=== PATIENT | male | born 1980 | race Caucasian/White ===

== ENCOUNTER 2024-05-24 23:18 | Emergency (ER) | payer BC, SELFPAY ==
[2024-05-24 23:30] VITALS: BP 137/85; PULSE 97; RESP 16; TEMP 37.4; O2SAT 94; BMI 34.5
--- NOTE | 2024-05-24 23:36 | ED_ITS ---
HPI - General Adult General Chief complaint: Fever Stated complaint: fever Time Seen by Provider: 05/24/24 23:36 History of Present Illness HPI narrative: Patient c/o fever/chills since 1730 today. Patient has complicated h/o stage IV colon ca and was told today he is in remission ( treated at [facility] ). Fever as high as 102 at home. Patient took 1 gm tylenol at 2130 . Patient was told by [facility] to seek treatment for fever. Patient is currently on augmentin for pelvic drain removal 2 days ago. 43-year-old man presenting to the emergency department with concern of fever. Thankfully told today that he is in remission. Did have blood work done yesterday which looked good. Had chills this evening. Temperature measured up to 102 though they are not convinced of the quality of the thermometer/reading. At least 101 something. Took acetaminophen prior to arrival. Called in due to this fever and recommended to be evaluated in the emergency department. Last chemo 1 month ago. History of retained pelvic fluid. No pelvic pain anymore actually was doing some exercises today and felt better than ever. Did have strange urge to defecate at 1 point. Prior to pulling drain scope was used to verify no significant fluid collection. Was on Macrobid but has been now on Augmentin for 2 days. No rashes. No exposures. No cough or shortness of breath. Related Data Home Medications ?Medication ?Instructions ?Recorded ?Confirmed amlodipine 5 mg tablet 5 mg PO DAILY 05/24/24 05/24/24 amoxicillin 875 mg-potassium 1 tab PO BID 05/24/24 05/24/24 clavulanate 125 mg tablet bupropion HCl 300 mg 24 hr tablet, 300 mg PO QAM 05/24/24 05/24/24 extended release lamotrigine 200 mg tablet 200 mg PO QAM 05/24/24 05/24/24 lorazepam 0.5 mg tablet 0.5 mg PO 3XD PRN anxiety 05/24/24 05/24/24 mirtazapine 30 mg tablet mg PO 05/24/24 olanzapine 5 mg tablet mg 05/24/24 omeprazole 40 mg capsule,delayed 40 mg PO QAM 05/24/24 05/24/24 release oxycodone 5 mg tablet PO 05/24/24 pregabalin 25 mg capsule 25 mg PO 3XD 05/24/24 05/24/24 sildenafil 50 mg tablet 50 mg PO DAILY PRN intercourse 05/24/24 05/24/24 tamsulosin 0.4 mg capsule 0.4 mg PO DAILY 05/24/24 05/24/24 Allergies Allergy/AdvReac Type Severity Reaction Status Date / Time No Known Drug Allergies Allergy Verified 05/24/24 23:35 Review of Systems Status of ROS: Reports: 6 or more systems reviewed and unremarkable except as noted in History and below [facility] Medical History Colon cancer ?C18.9 - Malignant neoplasm of colon, unspecified (ICD-10) Social History Smoking Status: Unknown if ever smoked Non-prescribed substance use: denies use service: No Exam Narrative: Exam Narrative: Pleasant. Of good energy. Sounds a little congested in the nasopharynx which apparently is his usual timbre. Oropharynx is moist without erythema. Neck is supple without lymphadenopathy. Lungs are clear. Heart in elevated rate and regular rhythm. Abdomen is soft. Not particularly tender. Midline well-healed surgical scar without inflammation. Ostomy not inflamed. Extremities are well perfused without edema. Const: Vital Signs, click to edit/add: Vital Signs - 24 hr 05/24/24 23:30 05/25/24 00:20 Temperature 99.3 F Pulse Rate [Left P ulse Oximeter] 97 Respiratory Rate 16 Blood Pressure [Ri ght Upper Arm] 137/85 Pulse Oximetry 94 94 Oxygen Delivery Me thod Room Air Room Air Documenting provider has reviewed patient's vital signs: yes Course Vital Signs Vital signs: Initial Vital Signs Temperature 99.3 F 05/24/24 23:30 Temperature Source Temporal Artery Scan 05/24/24 23:30 Pulse Rate 97 05/24/24 23:30 Respiratory Rate 16 05/24/24 23:30 Blood Pressure 137/85 05/24/24 23:30 Blood Pressure Mean 102 05/24/24 23:30 Blood Pressure Position Supine 05/24/24 23:30 Pulse Oximetry 94 05/24/24 23:30 Oxygen Delivery Method Room Air 05/24/24 23:30 Vital Signs Temperature 99.3 F 05/24/24 23:30 Pulse Rate 97 05/24/24 23:30 Respiratory Rate 16 05/24/24 23:30 Blood Pressure 137/85 05/24/24 23:30 Pulse Oximetry 94 05/24/24 23:30 Oxygen Delivery Method Room Air 05/24/24 23:30 Temperature 99.3 F 05/24/24 23:30 Pulse Rate 97 05/24/24 23:30 Respiratory Rate 16 05/24/24 23:30 Blood Pressure 137/85 05/24/24 23:30 Pulse Oximetry 94 05/25/24 00:20 Oxygen Delivery Method Room Air 05/25/24 00:20 Medications Administered Medications: Discontinued Medications Generic Name Dose Route Start Last Admin Trade Name Rosina PRN Reason Stop Dose Admin Heparin Sodium (Porcine) 500 unit 05/25/24 01:22 05/25/24 01:34 Heparin 500 Unit/5 Ml Syringe IVF 05/25/24 01:23 500 unit ONCE ONE Administration Sodium Chloride 1,000 mls @ 1,000 mls/hr 05/24/24 23:48 05/25/24 00:24 0.9 % Sodium Chloride 1000 Ml IV 05/25/24 00:47 1,000 mls/hr .Q1H ONE Administration Medical Decision Making MDM Narrative Medical decision making narrative: Viral illness in community currently that seems to be causing headache and myalgias and some fever. Would suspect similar though certainly in the setting of cancer of the not receiving current chemotherapy would warrant further evaluation. Suppose could be neutropenic as the cause of fever. Look for source of infection. Have not requested chest x-ray at this point without respiratory symptoms. No chest pain. Screening labs. L normal saline Will obtain blood culture as well. Limited to 1 due to supply Hydrated. Monitor in the emergency department without event. Feels generally well. No further fever Labs are reassuring. CRP is elevated at 7.2. Unsure if this might be related to his persistent pelvic fluid/inflammation or underlying likely viral etiology. I would continue at this point on the Augmentin. Without other source to go by I think this is a reasonable antibiotic. Should cover most issues certainly intra-abdominal processes. Culture pending. See patient discharge plan for further discussion Medical Records Medical records reviewed: Yes I reviewed the patient's medical records Lab Data Lab results reviewed: Yes I reviewed the patient's lab results Labs: Lab Results 08/07/24 08/07/24 Range/Units 00:20 01:20 WBC 6.40 (4.50-11.00) K/uL RBC 4.29 L (4.30-5.90) m/uL Hgb 12.2 L (13.5-17.5) gm/dL Hct 37.6 (37.0-53.0) % MCV 88 (80-100) fL MCH 28 (26-34) pg MCHC 32 (32-36) gm/dL RDW Coeff of Jackelin 13.2 (11.5-15.5) % Plt Count 284 (140-440) K/uL Neut % (Auto) 73.5 H (42.0-72.0) % Lymph % (Auto) 13.0 L (20-44) % [place] % (Auto) 11.4 H (0.0-11.0) % Eos % (Auto) 1.1 (0.0-7.0) % Baso % (Auto) 0.5 (0.0-3.0) % Neut # (Auto) 4.70 (1.7-7.0) K/uL Lymph # (Auto) 0.80 L (0.90-2.90) K/uL [place] # (Auto) 0.70 (0.00-0.90) K/UL Eos # (Auto) 0.07 (0.00-0.50) K/uL Baso # (Auto) 0.03 (0.00-0.30) K/uL Abs Immat Gran (auto) 0.03 (0.00-0.30) K/uL Imm/Tot Granulo (auto) 0.5 % Sodium 137 (135-149) mmol/L Potassium 3.9 (3.6-5.1) mmol/L Chloride 105 (96-114) mmol/L Carbon Dioxide 25 (20-32) mmol/L Anion Gap 7 (7-15) mEq/L BUN 22 (5-24) mg/dL Creatinine 0.8 (0.5-1.5) mg/dL Estimated Creat Clear 113.61 Estimated GFR 114 ml/min Glucose 104 (60-115) mg/dL Lactate 1.0 (0.5-1.9) mmol/L Calcium 9.1 (8.4-10.6) mg/dL Total Bilirubin 0.5 (0.1-1.5) mg/dL Direct Bilirubin 0.4 (0.0-0.5) mg/dL AST 28 (12-35) U/L ALT 60 H (4-50) U/L Alkaline Phosphatase 169 H (40-150) U/L C-Reactive Protein 7.2 H (0.5-1.0) mg/dL Total Protein 6.7 (6.0-8.3) g/dL Albumin 4.0 (3.3-5.0) g/dL Procalcitonin 0.18 (<0.50) ng/mL Urine Color Yellow (Yellow) Urine Appearance Clear (Clear) Urine pH 5.5 (5.0-8.5) Ur Specific [place] 1.010 (1.000-1.030) Urine Protein Negative (Negative) Urine Glucose (UA) Negative (Negative) Urine Ketones Negative (Negative) Urine Blood Negative (Negative) Urine Nitrite Negative (Negative) Urine Bilirubin Negative (Negative) Urine Urobilinogen 0.2 (0.2-1.0) Ur Leukocyte Esterase Negative (Negative) Urine RBC 0-2 (0-2) Urine WBC 0-2 (0-5) Ur Squamous Epith Cells Few (None-Few) Urine Bacteria None (None) SARS-CoV-2 (PCR) Negative SARS-CoV-2 (Negative) Influenza Type A (PCR) Negative PCR FLU A (Negative) Influenza Type B (PCR) Negative PCR FLU B (Negative) Discharge Plan Discharge Clinical Impression: Fever Patient Disposition: Home w/ Parent or Adult Condition: Stable Instructions: Fever in Adults (ED) Additional Instructions: I would suspect you have nonspecific viral illness. Stay well-hydrated. Monitor for continued fever. Please call later today to your [facility] care team to discuss. Your labs are overall reassuring the with a C reactive protein of 7.2 and perhaps not unexpectedly your ALT was 60 and your alkaline phosphatase was 169. We will call you if we have any further recommendations based on your urinalysis. You are fairly well covered with the Augmentin for numerous pot ential sources of infection. One blood culture is also pending. Prescriptions: No Action lamotrigine 200 mg tablet 200 mg PO QAM sildenafil 50 mg tablet 50 mg PO DAILY PRN (Reason: intercourse) olanzapine 5 mg tablet Patient Comments: PLEASE SEE ATTACHED FOR DETAILED DIRECTIONS amlodipine 5 mg tablet 5 mg PO DAILY omeprazole 40 mg capsule,delayed release(DR/EC) 40 mg PO QAM lorazepam 0.5 mg tablet 0.5 mg PO 3XD PRN (Reason: anxiety) tamsulosin 0.4 mg capsule 0.4 mg PO DAILY mirtazapine 30 mg tablet PO amoxicillin-pot clavulanate 875-125 mg tablet 1 tab PO BID oxycodone 5 mg tablet PO bupropion HCl 300 mg tablet extended release 24 hr 300 mg PO QAM pregabalin 25 mg capsule 25 mg PO 3XD Follow Up/Referrals: Provider,Not a Local [Primary Care Provider] - Stand Alone [facility]: [facility] Inst[facility]
--- OUTSIDE RECORDS SUMMARY | 2024-05-24 23:59 | XMS_ITS | Clinical Summary ---
Author Organization [facility] Address [address] [place] [address]. [place] [address] Care Team Providers Care Claim Specialist Name Role Phone Manuel Hoffman MD Primary Care Provider [phone] Allergies No known active allergies Medications Medication Sig Dispensed Refills Start Date End Date Status HEMP OIL OR EXTRACT OR OTHER CBD CANNABINOID, NOT MEDICAL CANNABIS, Active 5-HTP CAPS Take 1 capsule by mouth daily Active buPROPion (WELLBUTRIN XL) 300 MG 24 hr tablet Take 300 mg by mouth every morning Active escitalopram (LEXAPRO) 20 MG tablet Take 20 mg by mouth daily 03/06/2022 Discontinued Active Problems Problem Noted Date Diagnosed Date Major depressive disorder 03/07/2022 MDD (major depressive disord er), recurrent severe, 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 Hematochezia 07/22/2019 Social History Tobacco Use Types Packs/Day Years Used Date Smoking Tobacco: Never Smokeless Tobacco: Never Alcohol Use Standard Drinks/Week Comments Not Currently 0 (1 standard drink = 0.6 oz pur e alcohol) Adolescent Education Answer Date Record ed Getting School Help Needed Not on file 07/27 Sex and Gender Information Value Date Recorded Sex Assigned at Not on file Gender Identity Not on file Sexual Orientation Not on file Last Filed Vital Signs Vital Sign Reading Time Taken Comments Blood Pressure 135/89 03/08/2022 9:00 AM CDT Pulse 68 03/08/2022 9:00 AM CDT Temperature 36.2 ??C (97.2 ??F) 03/08/2022 9:00 AM CD T Respiratory Rate 16 03/08/2022 9:00 AM CDT Oxygen Saturation 98% 03/08/2022 9:00 AM CDT Inhaled Oxygen Concentration - - Weight 94.7 kg (208 lb 12.8 oz) 03/07/2022 9:31 PM CDT Height 170.2 cm (5' 7) 03/07/2022 9:31 PM CDT Body Mass Index 32.7 03/07/2022 9:31 PM CDT Plan of Treatment Health Maintenance Due Date Last Done Comments ADVANCE CARE PLANNING 1982 ANNUAL REVIEW OF HM ORDERS 1982 DEPRESSION ACTION PLAN 1982 PHQ-9 1982 HIV SCREENING 1997 HEPATITIS C SCREENING 2000 HEPATITIS B IMMUNIZATION (3 of 3 - 19+ 3-dose series) 05/26/2016 02/18/2016, 11/26/2015 YEARLY PREVENTIVE VISIT 12/05/2021 12/05/19, 08/19/2019, 08/18/2018 COVID-19 Vaccine ( season) 2023 01/09/2021, 12/14/2020 INFLUENZA VACCINE (#1) 2024 , 07/16/2020, 07/22/2018, Additional history exists GLUCOSE 03/08/2025 03/08/2022, 1002/2019, 07/22/2019 LIPID 03/08/2027 03/08/2022 DTAP/TDAP/TD IMMUNIZATION (8 - Td or Tdap) 07/24/2031 07/24/2021, 01/28/2010, 01/18/1988, Additional history exists IPV IMMUNIZATION Completed 01/18/1988, 06/1985, 08/12/1983, Additional history exists HPV IMMUNIZATION Aged Out No longer e ligible based on patient's age to complete this topic MENINGITIS IMMUNIZATION Aged Out No l onger eligible based on patient's age to complete this topic Pneumococcal Vaccine: Pediatrics (0 to 5 Years) and At-Risk Patients (6 to 64 Years) Aged Out No longer eligible based on patient's age to complete this topic RSV MONOCLONAL ANTIBODY Aged Out No l onger eligible based on patient's age to complete this topic Medical Devices Implanted Type Area Latex Thread Machine Operator Device Identifier Shelf Expiration Date Model / Serial / Lot Embolization Coil-07/22/2019 Implanted:Qty: 1 on 07/22/2019 by Aston Granger MD Embolization Coil / / [id number] Embolization Coil-07/22/2019 Implanted:Qty: 1 on 07/22/2019 by Aston Granger MD Embolization Coil / / [id number] Procedures Procedure Name Priority Date/Time Associated Diagnosis Comments COMPREHENSIVE METABOLIC PANEL Routine 03/08/2022 5:49 AM CDT LIPID PROFILE Routine 03/08/2022 5:49 AM CDT from Last 3 Months or Most Recently Relevant to Health Maintenance Results * (ABNORMAL) Lipid panel (03/08/2022 5:49 AM CDT) Pathologist [facility] Cholesterol 193 <200 mg/dL 03/08/2022 7:05 AM CDT [facility] Triglycerides 89 <150 mg/dL 03/08/2022 7:05 AM CDT [facility] Direct Measure HDL 49 >=40 mg/dL 03/08/2022 7:05 AM CDT [facility] LDL Cholesterol Calculated 126(H) <=100 mg/dL 03/08/2022 7:05 AM CDT [facility] Non HDL Cholesterol 144(H) <130 mg/dL 03/08/2022 7:05 AM CDT [facility] Blood STRUCTURE OF RIGHT UPPER LIMB / Unknown Venipuncture / Unknown 03/08/2022 5:49 AM CDT 03/08/2022 6:37 AM CDT Narrative [facility] - 03/08/2022 7:05 AM CDT Cholesterol Desirable: ??<200 mg/dL Triglycerides Normal: ??Less than 150 mg/dL Borderline High: ??150-199 mg/dL High: ??200-499 mg/dL Very High: ??Greater than or equal to 500 mg/dL Direct Measure HDL Female: ??Greater than or equal to 50 mg/dL Male: ??Greater than or equal to 40 mg/dL LDL Cholesterol Desirable: ??<100mg/dL Above Desirable: ??100-129 mg/dL Borderline High: ??130-159 mg/dL High: ??160-189 mg/dL Very High: ??>= 190 mg/dL Non HDL Cholesterol Desirable: ??130 mg/dL Above Desirable: ??130-159 mg/dL Borderline High: ??160-189 mg/dL High: ??190-219 mg/dL Very High: ??Greater than or equal to 220 mg/dL Meg Walker APRN [employer] [facility] - BLO OD ORDERABLES [facility] [address] [place] [address], [facility] [phone] * Comprehensive metabolic panel (03/08/2022 5:49 AM CDT) Sodium 140 133 - 144 mmol/L 03/08/2022 7:05 AM CDT [facility] Potassium 4.2 3.4 - 5.3 mmol/L 03/08/2022 7:05 AM CDT [facility] Chloride 107 94 - 109 mmol/L 03/08/2022 7:05 AM CDT [facility] Carbon Dioxide (CO2) 28 20 - 32 mmol/L 03/08/2022 7:05 AM CDT [facility] Anion Gap 5 3 - 14 mmol/L 03/08/2022 7:05 AM CDT [facility] Urea Nitrogen 15 7 - 30 mg/dL 03/08/2022 7:05 AM CDT [facility] Creatinine 0.93 0.66 - 1.25 mg/dL 03/08/2022 7:05 AM CDT [facility] Calcium 9.1 8.5 - 10.1 mg/dL 03/08/2022 7:05 AM CDT [facility] Glucose 91 70 - 99 mg/dL 03/08/2022 7:05 AM CDT [facility] Alkaline Phosphatase 42 40 - 150 U/L 03/08/2022 7:05 AM CDT [facility] AST 11 0 - 45 U/L 03/08/2022 7:05 AM CDT [facility] ALT 13 0 - 70 U/L 03/08/2022 7:05 AM CDT [facility] Protein Total 7.0 6.8 - 8.8 g/dL 03/08/2022 7:05 AM CDT [facility] Albumin 3.9 3.4 - 5.0 g/dL 03/08/2022 7:05 AM CDT [facility] Bilirubin Total 0.9 0.2 - 1.3 mg/dL 03/08/2022 7:05 AM CDT [facility] GFR Estimate >90 >60 mL/min/1.7 3m2 03/08/2022 7:05 AM CDT [facility] Comment:Effective September 192020 eGFRcr in adults is calculated using the 2020 CKD-EPI creatinine equation which includes age and gender (Kaykay et al., NEJM, DOI: 10.1056/KUGMfj0621093) Blood STRUCTURE OF RIGHT UPPER LIMB / Unknown Venipuncture / Unknown 03/08/2022 5:49 AM CDT 03/08/2022 6:37 AM CDT Meg Walker APRN [employer] LAB - BLO OD ORDERABLES [facility] [address] [place] [id number] [phone] from Last 3 Months or Most Recently Relevant to Health Maintenance Advance Directives For more information, please contact: [phone] * Full Code (Latest Code Status on File) Date Activated Date Inactivated Comments 03/07/2022 10:02 PM 03/08/2022 5:01 PM All basic a nd advanced life-sustaining interventions are performed as appropriate Question Answer Comments Code status determined by: Discussion with patie nt/ legal decision maker * Full Code Date Activated Date Inactivated Comments 07/22/2019 6:03 PM 07/23/2019 4:41 PM Question Answer Comments Code status determined by: Discussion with patie nt/legal decision maker Care Teams Claim Specialist Relationship Specialty Start Date End Date Manuel Hoffman MD [facility] [address] [place] [address] PCP - General Family Practice 07/22/19
--- OUTSIDE RECORDS SUMMARY | 2024-05-24 23:59 | XMS_ITS | Clinical Summary ---
Author Organization [facility] Address [address] [place] [address] Care Team Providers Care Dry House Tender Name Role Phone Unavailable Primary Care Provider Unavailabl e Source Comments You are receiving this document as you are listed as the primary care provider,follow-up provider, or the patient has been referred to you for consultation.This is in compliance with the Medicare andMedicaid EHR Incentive Program,which states Providers who transition their patient to another setting of careor provider of care or refers their patient to another provider of care shouldprovide summary care record for each transition of care or referral. [facility] Allergies No known active allergies Medications Medication Sig Dispensed Refills Start Date End Date Status Cholecalciferol 5000 UNITS Take 1 tablet by mouth daily (every 24 hours). 90 tablet 3 10/30/2015 Active escitalopram oxalate (AKA LEXAPRO) 10 MG tabletIndications:D epression, major, recurrent, moderate (HRC) Take 2 tablets by mouth daily (every 24 hours). 11 10/30/2015 Active buPROPion (WELLBUTRIN XL) 300 MG 24 hour release tablet Take 300 mg by mouth. 03/13/2022 Active DULoxetine (CYMBALTA) 30 MG capsule Take 30 mg by mouth daily. 12/29/2021 Active cholecalciferol (VITAMIN D3) 125 MCG (5000 UT) capsule Take 5,000 Units by mouth. Active 5-HTP CAPS Take 1 Capsule by mouth daily. Active lamoTRIgine (LAMICTAL) 25 MG tablet PLEASE SEE ATTACHED FOR DETAILED DIRECTIONS 03/12/2022 Active lamoTRIgine ER 50 MG Take 50 mg by mouth. 04/04/2022 Active Immunizations Name Administration Dates Next Due DTaP 01/18/1988, 5,08/12/1983,1982,04/10/1983 Flu Vac Preserv Free (3+yrs) 07/22/2018 Fluzone Qiv Multidose Vial 0 .25 (6-35 Mos) 07/16/2020,07/22/2018 HepA Adult (19+ yrs) 02/18/2016,11/26/2015 HepB, Unspecified Formulation 02/18/2016, 016 Influenza (Flucelvax) 07/11/2021 MMR 05/31/1996,04/08/1984 Moderna Monovalent 12+ 01/09/2021,12/14/2020 OPV, Trivalent (Orimune or tOPV) 988,01/25/1985,08/12/1983,1982,03/20/1983 Tdap 07/24/2021,01/28/2010 Typhoid, Parenteral Heat-Phe nol Inactivated 11/26/2015 YF (Yellow Fever) 03/19/2016 Family History Medical History Relation Name Comments Hypertension Mother Relation Name Status Comments Mother Social History Tobacco Use Types Packs/Day Years Used Date Smoking Tobacco: Former Cigarettes Q uit: 07/30/2015 Alcohol Use Standard Drinks/Week Comments Yes 0 (1 standard drink = 0.6 oz pur e alcohol) Sex and Gender Information Value Date Recorded Sex Assigned at Not on file Gender Identity Not on file Sexual Orientation Not on file Last Filed Vital Signs Vital Sign Reading Time Taken Comments Blood Pressure 146/104 04/18/2022 3:48 PM CDT Pulse 66 04/18/2022 3:48 PM CDT Temperature - - Respiratory Rate 14 04/18/2022 3:48 PM CDT Oxygen Saturation 100% 04/18/2022 3:48 PM CDT Inhaled Oxygen Concentration - - Weight 96.6 kg (213 lb) 10/30/2015 10:39 AM 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 INTERN Height 172.1 cm (5' 7.75) 10/30/2015 10:[address] Body Mass Index 32.63 10/30/2015 10:39 AM 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 Plan of Treatment Health Maintenance Due Date Last Done Comments Hep C Screening (Preventive Services) 1982 HIV Screening (Preventive Services) 1998 Adult Preventive Visit 2000 HepB (3) 05/26/2016 02/18/2016, 11/26/2015 Cholesterol 2017 COVID-19 Vaccine (3 season) 2023 01/09/2021, 12/14/2020 Influenza (#1) 2024 07/11/2021, 06/20, 07/22/2018, Additional history exists DTaP/Tdap/Td (8 - Tdap) 07/24/2031 07/24/20 21, 01/28/2010, 01/18/1988, Additional history exists Zoster/Shingles (1 of 2) 2032 IPV (Polio) Completed 01/18/1988, 06/1985, 08/12/1983, Additional history exists HepA Aged Out 02/18/2016, 11/26/2015 No lo nger eligible based on patient's age to complete this topic HPV Vaccine Aged Out No longer eligi ble based on patient's age to complete this topic Hib Aged Out No longer eligi ble based on patient's age to complete this topic MCV4 Aged Out No longer eligi ble based on patient's age to complete this topic Pneumococcal Aged Out No longer eligi ble based on patient's age to complete this topic
--- OUTSIDE RECORDS SUMMARY | 2024-05-25 | XMS_ITS | Clinical Summary ---
Author Organization [facility] Address [address] [place] [address] Care Team Providers Care Rim Roller Setter Name Role Phone Kayla Rowland APRN, C.N.P. Primary Care Provide r Source Comments Patient records contain information from all sites at [facility]. For routine questions regarding patient records, call [phone] during business hours, M-F 8:00 AM - 5:00 PM Central Time. Record requests for emergency care only can be directed to [phone] at any time.[facility] Allergies No known active allergies Medications Medication Sig Dispensed Refills Start Date End Date Status buPROPion XL (WELLBUTRIN XL) 300 mg 24 hr tablet Take 1 tablet (300 mg total) by mouth every morning. 90 tablet 11 03/13/20 22 Active triamcinolone (KENALOG) 0.1 % creamIndications :Psoriasis Apply to affected area 1-2 times daily as needed. 60 g 11 06/01/20 23 Active Additional Information Patient taking differently: 4 times daily PRN, irritation, rash, psoriasis, Apply to affected area four times daily as needed for psoriasis, Informant: Self, Reported on 03/29/2024 fluocinonide (LIDEX) 0.05 % external solution 1 Application 2 (two) times a day as needed for irritation, itching or rash (psoriasis). Apply to the scalp up to twice daily as needed for flares. 09/23/20 23 Active tacrolimus (PROTOPIC) 0.1 % ointment Apply 1 Application topically 2 (two) times a day as needed (psoriasis). 09/23/20 23 Active medical cannabis oil inhalation Inhale as needed (nauesa and anxiety). THC component: 30 mg Patient does not need while in the hospital Active amLODIPine (NORVASC) 5 mg tablet TAKE 1 TABLET (5 MG TOTAL) BY MOUTH DAILY. 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 Flush IV line AFTER 0.9% Sodium Chloride flush 04/03/20 24 Active ibuprofen (ADVIL,MOTRIN) 200 mg tablet Take 3 tablets (600 mg total) by mouth every 6 (six) hours as needed for pain for up to 5 days. 04/03/20 24 Active prochlorperazine (COMPAZINE) 5 mg tablet Take 1 tablet (5 mg total) by mouth every 6 (six) hours as needed for nausea or vomiting. 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 Flush IV line AFTER 0.9% Sodium Chloride flush 04/03/20 24 Active pantoprazole (PROTONIX) 40 mg EC tablet Take 1 tablet (40 mg total) by mouth every morning before breakfast. 30 tablet 1 04/03/20 24 Active lidocaine-priloc leilani (EMLA) 2.5-2.5 % cream Apply 1 Application topically as needed for pain. Wearing gloves, gently squeeze prescribed amount of EMLA?? directly onto intact skin of desired numbing site. Do not rub in. Cover topical Lidocaine/Priloc leilani (EMLA??) with occlusive dressing, to prevent patient from accidental ingestion or eye contact. Apply 60 minutes prior to indicated procedure. 30 g 04/03/20 24 Active LORazepam (Ativan) 0.5 mg tablet Take 1 tablet (0.5 mg total) by mouth 3 (three) times a day as needed for anxiety. 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 May take dose early if needed. 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 Take daily for 3 days, starting the day after chemotherapy ends of each cycle. 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 90 capsule 04/26/20 24 025 Active sildenafiL (Viagra) 50 mg tablet Take 1 tablet (50 mg total) by mouth daily as needed for erectile dysfunction. 10 tablet 05/04/20 24 Active mirtazapine (Remeron) 30 mg tablet Take 30 mg by mouth at bedtime. 05/08/20 24 Active lamoTRIgine (LaMICtaL) 200 mg tablet Take 200 mg by mouth daily. Active acetaminophen (TylenoL) 500 mg tablet Take 2 tablets (1,000 mg total) by mouth every 6 (six) hours as needed for pain. 05/15/20 24 Active amitriptyline 2 % ketamine 5 % lidocaine 5 % in lipodermIndicati ons:Abdominal Pain Apply topically 4 (four) times a day as needed (pain around drain site). Apply around drain site. 30 g 05/15/20 24 Active pregabalin (Lyrica) 25 mg capsule Take 1 capsule (25 mg total) by mouth 3 (three) times a day. Refills, if needed, should be provided by your PCP. 90 capsule 05/15/20 24 024 Active lidocaine (Lidoderm) 5 % adhesive patch,medicated Place 1 patch on the skin daily as needed (pain). Apply to area of most pain. 05/15/20 24 Active methocarbamoL (Robaxin) 500 mg tablet Take 2 tablets (1,000 mg total) by mouth 4 (four) times a day as needed for muscle spasms. 35 tablet 05/15/20 24 Active oxyCODONE (Roxicodone) 5 mg immediate release tabletIndication s:Acute Pain Exception Take 1-2 tablets (5-10 mg) by mouth every 3 hours as needed for moderate or severe pain. Pain rated 4-6 of 10, take 1 tablet. For pain rated greater than 7 of 10, take 2 tablets. Wean off this medication within 1 week of discharge. 20 tablet 05/18/20 24 Active oxyCODONE (Roxicodone) 5 mg immediate release tabletIndication s:Chronic Pain/Nonacute Pain Take 1-2 tablets (5-10 mg total) by mouth every 4 (four) hours as needed for moderate pain or score 4-6 of 10 Indication: Chronic Pain/Nonacute Pain. 60 tablet 05/19/20 24 Active tamsulosin (Flomax) 0.4 mg 24 hr capsule Take 1 capsule (0.4 mg total) by mouth daily. 30 capsule 1 05/20/20 24 Active amoxicillin-pot clavulanate (Augmentin) 875-125 mg per tablet Take 1 tablet by mouth 2 (two) times a day for 7 days. 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 Flush IV line AFTER 0.9% Sodium Chloride flush 04/03/20 024 Discontinued( erapy completed) LORazepam (ATIVAN) 0.5 mg tablet Take 1 tablet (0.5 mg total) by mouth 3 (three) times a day as needed (prn nausea). Take Caution in combination use with Narcotic pain meds. Can cause excessive sedation 04/03/20 024 Discontinued oxyCODONE (ROXICODONE) 5 mg immediate release tabletIndication s:Acute Pain Exception Take 1 tablet (5 mg total) by mouth every 3 (three) hours as needed for moderate pain or score 4-6 of 10 Indication: Acute Pain Exception. 40 tablet 04/03/20 24 024 Discontinued(Re order) tamsulosin (FLOMAX) 0.4 mg 24 hr capsule Take 1 capsule (0.4 mg total) by mouth daily. 30 capsule 1 04/03/20 24 024 Discontinued(Re order) lidocaine (LIDODERM) 5 % adhesive patch,medicated Place 1 patch on the skin daily. Apply to area of most pain. 5 patch 04/03/20 24 024 Discontinued methocarbamoL (Robaxin) 500 mg tablet Take 2 tablets (1,000 mg total) by mouth 4 (four) times a day as needed for muscle spasms. 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 May take 2 caps every 4 hrs at night. 24 capsule 3 04/26/20 24 024 oxyCODONE (Roxicodone) 5 mg immediate release tabletIndication s:Acute Pain Take 1 tablet (5 mg total) by mouth every 4 (four) hours as needed for severe pain or score 7-10 of 10 Indication: Acute Pain. 15 tablet 05/08/20 24 024 Discontinued(St op Taking at Discharge) oxyCODONE (Roxicodone) 5 mg immediate release tabletIndication s:Acute Pain Exception Take 1-2 tablets (5-10 mg) by mouth every 3 hours as needed for moderate or severe pain. Pain rated 4-6 of 10, take 1 tablet. For pain rated greater than 7 of 10, take 2 tablets. Wean off this medication within 1 week of discharge. 40 tablet 05/15/20 24 024 Discontinued(Re order) nitrofurantoin monohydrate (Macrobid) 100 mg capsuleIndicatio ns:Lower UTI, Non-Catheter Take 1 capsule (100 mg total) by mouth 2 (two) times a day for 13 doses Indications: Lower UTI, Non-Catheter. 13 capsule 05/15/20 024 Active Problems Problem Noted Date Diagnosed Date Pain Postoperative 05/12/2024 Abdominal Pain 05/12/2024 Anxiety 05/12/2024 Psoriasis 05/12/2024 Gastroesophageal Reflux Disease 05/12/2024 Other Intra Abdominal And Pelvic Swelling Mass A nd Lump 05/09/2024 Follow Up Examination Postoperative Visit 2023 Ileostomy Status 05/02/2024 Retention Urinary 04/01/2024 Hypokalemia 04/01/2024 Hypomagnesemia 04/01/2024 Hypophosphatemia 04/01/2024 Post Operative Nausea/Vomiting 03/29/2024 Obesity Body Mass Index 30-39.9 Adult 03/29/2024 Malignant Neoplasm Of Rectum 09/22/2023 Secondary Malignant Neoplasm Liver 09/18/2023 Malignant Neoplasm Of Colon Rectosigmoid Junctio n 09/14/2023 Mass Colon 09/07/2023 Depression Major Recurrent S evere Without Psychotic Features 03/06/2022 Goiter Multinodular Nontoxic 09/24/2018 Hypertension Essential Primary 05/22/2017 Overview (07/12/2017): Hypertension (HTN)\.br\per external records ST Elevation Myocardial Infarction Of Unspecifie d Site Resolved Problems Problem Noted Date Diagnosed Date Resolved Date Hematochezia 07/22/2019 08/19/2019 Depression Major Recurrent Mild 05/11/2017 03/12/2022 Overview (07/12/2017): Depression Major Recurrent Mild Encounters Date Type Department Care Team Description 05/24/2024 Clinical Communication Department of Oncology in [place], [place] [address] [place] [address] Pedro Mahoney M.D., Pharm.D. 05/23/2024 12:15 PM CDT Infusion Department of Oncology in [place], [place] [address] [place] [address] Mariluz Soler M.D. 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 Jason Silveira M.D. Gonzalez, Austin J, M.D. Malignant Neoplasm Of Rectum (HCC); Secondary Malignant Neoplasm Liver (HCC); Abdominal Pain Discharge Disposition: Home or Self Care 05/20/2024 Orders Only Division of Colon and Rectal Surgery in [place], [place] [address] [place] [phone] Armida Bullock APRN, C.N.P., M.S.N. 05/19/2024 Refill Department of Oncology in [place], [place] [address] [place] [address] Patsy Bowser APRN, C.N.P., M.S. Med Refill 05/18/2024 Orders Only Division of Colon and Rectal Surgery in [place], [place] [address] [place] [address] Jeremy Ventura APRN, C.N.P., M.S. 05/17/2024 Clinical Communication Division of Colon and Rectal Surgery in [place], [place] [address] [place] [phone] Janell Chino M.A.N., R.N. 05/17/2024 Orders Only Division of Colon and Rectal Surgery in [place], [place] [address] [place] [address] Janell Chino M.A.N., R.N. Malignant Neoplasm Of Rectum (HCC) (Primary Dx); Secondary Malignant Neoplasm Liver (HCC); Abdominal Pain 05/13/2024 Orders Only Department of Urology in [place], [place] [address] [place] [address] Anny Mcneill M.D. Retention Urinary (Primary Dx) 05/12/2024 3:23 PM CDT - 05/15/2024 1:36 PM CDT Hospital Encounter [facility], [facility], [facility], Fifth Floor [address] [place] [address] Patsy Zhou M.D. Baker, Sebastian P, APRN, C.N.P. Radha Barrera M.D. Tej Quintanilla M.B., Ch.B., M.P.H. Pain Postoperative (Primary Dx); Abdominal Pain Discharge Disposition: Home or Self Care 05/12/2024 Orders Only Division of Colon and Rectal Surgery in [place], [place] [address] [place] [phone] Basia Colorado APRN, C.NMarco., M.S.N. Abdominal Pain (Primary Dx) 05/12/2024 Clinical Communication Division of Colon and Rectal Surgery in [place], [place] [address] [place] [phone] Tej Quintanilla M.B., Ch.B., M.P.H. Post Op Sinogram Follow Up 05/11/2024 2:00 PM CDT Infusion Department of Oncology in [place], [place] [address] [place] [phone] Patsy Bowser APRN, C.NMarco., M.S. 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 05/10/2024 Orders Only Department of Oncology in [place], [place] [address] [place] [address] Patsy Bowser APRN, C.N.P., M.S. 05/09/2024 2:37 PM CDT - 05/11/2024 12:42 PM CDT Hospital Encounter [facility], [facility], [facility], Sixth Floor [address] [place] [phone] Kai Petersen M.D., M.S. Tej Quintanilla M.B., Ch.B., M.P.H. Other Intra Abdominal And Pelvic Swelling Mass And Lump (Primary Dx) Discharge Disposition: Home or Self Care 05/06/2024 10:30 AM CDT Office Visit Division of Hepatobiliary and Pancreas Surgery in [place], [place] [address] [place] [address] Joann Rausch APRN, C.N.P., M.S.N. Malignant Neoplasm Of Rectum (HCC) (Primary Dx); Secondary Malignant Neoplasm Liver (HCC); Follow Up Examination Postoperative Visit; Ileostomy Status (HCC) 05/06/2024 9:30 AM CDT Clinical Support Division of Colon and Rectal Surgery in [address] [phone] Armida Bullock, JAD, C.N.P., M.S.N. Tanya Herman R.N., C.W.O.C.N. Ileostomy Status (HCC) 05/06/2024 8:04 AM CDT - 05/06/2024 11:59 PM CDT Hospital Encounter Department of Radiology, [facility], in [address] [phone] Genesis Suresh P.A.-C. 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 Ileostomy Status (HCC) (Primary Dx); Follow Up Examination Postoperative Visit 05/04/2024 Refill Department of Oncology in [address] [phone] Rena Mccray R.N., O.C.N. Med Refill 05/04/2024 Clinical Communication Department of Oncology in [address] [phone] Rena Mccray R.N., O.C.N. Forms ([facility]) 05/03/2024 12:15 PM CDT Clinical Communication Virtual Review in [address] [phone] Pre-visit Intake 05/02/2024 10:20 AM CDT Lab Department of Infusion Therapy in [address] [address] Mariluz Soler M.D. 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 Gloria Rapp R.N., SHAYY Ileostomy Status (HCC) 05/02/2024 Orders Only Department of Oncology in [address] [phone] Rena Mccray R.N., O.C.N. 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 Jacobson, Alison C, R.N., O.C.N. 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 Ileostomy Status (HCC) (Primary Dx) 04/19/2024 Refill Department of Oncology in [place], [place] [address] [place] [phone] Rena Mccray R.N., O.C.N. Med Refill 04/16/2024 Clinical Communication Division of Hepatobiliary and Pancreas Surgery in [place], [place] [address] [place] [phone] Amari You M.D. 04/14/2024 Orders Only Department of Oncology in [place], [place] [address] [place] [phone] Mariluz Soler M.D. 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 04/13/2024 Orders Only Department of Oncology in [place], [place] [address] [place] [phone] Rena Mccray R.N., O.C.NSolitario Malignant Neoplasm Of Rectum (HCC) (Primary Dx) 04/13/2024 Clinical Communication Division of Hepatobiliary and Pancreas Surgery in [place], [place] [address] [place] [phone] Wilfredo Cast M.D. 04/12/2024 3:00 PM CDT Clinical Support Division of Colon and Rectal Surgery in [place], [place] [address] [place] [address] [place] [address] Genesis Suresh P.A.-C. 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 04/06/2024 Orders Only Division of Hepatobiliary and Pancreas Surgery in [place], [place] [address] [place] [phone] Susu Daniel APRN, C.N.PSolitario, D.N.P. 04/05/2024 10:30 AM CDT - 04/05/2024 11:59 PM CDT Hospital [facility] Department of Radiology, [facility], in [place], [place] [address] [place] [phone] Chris Viera D.O., M.B.A. 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 Refill of catheters 04/04/2024 Clinical Communication Division of Colon and Rectal Surgery in [place], [place] [address] [place] [phone] Tej Quintanilla M.B., Ch.B., M.P.H. 03/29/2024 10:00 AM CDT - 03/29/2024 11:59 PM CDT Hospital Encounter Department of Radiology, [facility], in [place], [place] [address] [place] [phone] Panda Masters M.D. Secondary Malignant Neoplasm Liver (HCC) Discharge Disposition: Home or Self Care 03/29/2024 7:50 AM CDT Anesthesia Event [facility] OR [address] [place] [phone] Soniya Conroy M.D. Stephenson, Anthony A, M.D. 03/29/2024 7:25 AM CDT - 03/29/2024 5:11 PM CDT Surgery [facility] OR [address] [place] [phone] Chris Viera D.O., M.B.A. HEPATIC ARTERY INFUSION PUMP PLACEMENT. 03/29/2024 6:00 AM CDT - 04/03/2024 1:22 PM CDT Hospital Encounter [facility], [facility], Fifth Floor [address] [place] [phone] Chris Viera D.O., M.B.A. 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 03/28/2024 2:11 PM CDT - 03/28/2024 11:59 PM CDT Hospital Encounter Department of Radiation Oncology in [place], [place] [address] [place] [phone] Santosh Washington M.D. Discharge Disposition: Home or Self Care 03/26/2024 8:00 AM CDT - 03/26/2024 11:59 PM CDT Hospital Encounter Department of Radiation Oncology in [place], [place] [address] [place] [phone] Santosh Washington M.D. Discharge Disposition: Home or Self Care 03/25/2024 1:15 PM CDT - 03/25/2024 1:31 PM CDT Hospital Encounter Department of Radiation Oncology in [place], [place] [address] [place] [phone] Bren Vega P.A.-C., M.S. 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 Discharge Disposition: Home or Self Care 03/25/2024 Orders Only Department of Radiation Oncology in [place], [place] [address] [place] [phone] Bren Vega P.A.-C., M.S. 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 Discharge Disposition: Home or Self Care 03/24/2024 3:30 PM CDT Clinical Support Division of Colon and Rectal Surgery in [place], [place] [address] [place] [phone] Tej Quintanilla M.B., Ch.B., M.P.H. Phyllis Payne, RBillie., C.W.O.C.N. Malignant Neoplasm Of Rectum (HCC) 03/24/2024 Orders Only Division of Colon and Rectal Surgery in [place], [place] [address] [place] [phone] KunJanell leiva M.A.N., R.N. 03/23/2024 2:23 PM CDT - 03/23/2024 11:59 PM CDT Hospital Encounter Department of Radiation Oncology in [address] [phone] Santosh Washington M.D. Discharge Disposition: Home or Self Care 03/23/2024 1:58 PM CDT - 03/23/2024 2:22 PM CDT Hospital Encounter Department of Radiation Oncology in [address] [phone] Santosh Washington M.D. Malignant Neoplasm Of Rectum (HCC) 03/23/2024 7:20 AM CDT Telemedicine Department of Oncology in [address] [phone] Patsy Bowser APRN, C.N.P., M.S. 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 Malignant Neoplasm Of Rectum (HCC) 03/22/2024 2:43 PM CDT - 03/22/2024 3:22 PM CDT Hospital Encounter Department of Radiation Oncology in [address] [phone] Santosh Washington M.D. 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 03/22/2024 Orders Only Department of Oncology in [address] [phone] Rena Mccray R.N., O.C.N. 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 Malignant Neoplasm Of Rectum (HCC) (Primary Dx) 03/21/2024 2:30 PM CDT Comprehensive Visit Preoperative Evaluation Center in [address] [phone] Chrsi Viera D.O., M.B.A. Kathi Anderson, JAD, C.N.P. Preanesthetic Medical Exam (Primary Dx); Malignant Neoplasm Of Rectum (HCC); Secondary Malignant Neoplasm Liver (HCC); Hypertension Essential Primary; Depression Major Recurrent Severe Without Psychotic Features (HCC); Obesity Body Mass Index 30-39.9 Adult 03/21/2024 1:00 PM CDT Office Visit Division of Hepatobiliary and Pancreas Surgery in [address] [phone] Chris Viera D.O., M.B.A. 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 03/16/2024 1:57 PM CDT Anesthesia Event Division of Gastroenterology in [address] [phone] Kayla Cartwright APRN, RADHIKA, DNAP 03/16/2024 1:55 PM CDT Ancillary Procedure Department of Gastroenterology 03/16/2024 12:54 PM CDT - 03/16/2024 3:19 PM CDT Hospital Encounter Division of Gastroenterology in [address] [phone] Patsy Bowser APRN, C.N.P., M.S. 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 from Last 3 Months Immunizations Name Administration Dates Next Due DTaP (Infanrix, [employer]) 01/18/1988,06/1985,08/12/1983,1982,04/10/1983 HepA Adult 02/18/2016,11/26/2015 HepB, Unspecified 02/18/2016,11/26/2015 Influenza (IM) Preservative Free 07/22/2018 Influenza, Injectable, Mdck, Quadrivalent 07/11/2021 Influenza, Injectable, Quadrivalent 07/16/2020,1 MMR 05/31/1996,04/08/1984 OPV 01/18/1988, 5,08/12/1983,1982,03/20/1983 Tdap 07/24/2021,01/28/2010 YF 03/19/2016 typhoid vaccine, parenteral (discontinued) 11/26/2015 Family History Medical History Relation Name Comments Hypertension Father Ray Psoriasis Father Ray Thyroid cancer Father's Sister 2 Depression Maternal Grandfather asdfasd Bile duct adenocarcinoma Maternal Grandmother Hypertension Mother Sabrina Osteoarthritis Mother Sabrina Skin cancer Mother's Sister 2 non-melano ma on face, Hx burning easily Skin cancer Other on arm Thyroid cancer Paternal Cousin with recur rence Depression Paternal Grandmother asasd Relation Name Status Comments Brother Alive Father Ray Alive Father's Brother 1 Alive Father's Brother 2 Alive Father's Brother 3 Alive Father's Brother 4 Alive Father's Sister 1 Alive Father's Sister 2 Alive Father's Sister 3 Alive Father's Sister 4 Alive d. acciden t Maternal Cousin 1 Alive Maternal Cousin 2 Alive Maternal Cousin 3 Alive Maternal Grandfather asdfasd (Age 92) d. age-relatedbenign colon mass dx around 80y Maternal Grandmother (Age 86) d. bile duct cancer Mother Sabrina Alive retains uterus and ovaries Mother's Brother Alive Mother's Sister 1 Alive retains ut erus and ovaries Mother's Sister 2 Alive retains ut erus and ovaries Nephew Alive Niece Alive Other bowel resection d/t spot NOS Paternal Cousin Alive Paternal Grandfather (Age 80) d. heart disease Paternal Grandmother asasd (Age 88) d. age-related Sister Alive retains uterus and ovaries Social History Tobacco Use Types Packs/Day Years Used Date Smoking Tobacco: Former Cigarettes 1 - 08/18/2015 Smokeless Tobacco: Never Tobacco Cessation:Counseling Given: Not Answered Alcohol Use Standard Drinks/Week Comments Not Currently 0 (1 standard drink = 0.6 oz pur e alcohol) [facility] [employer] Answer Date Recorded In the past 12 months has e dotSyntax, oil, or water [employer] threatened to shut off services in your home? No 05/12/2024 Humiliation, Afraid, Rape, and Kick questionnair e Answer Date Recorded Within the last year, have y ou been afraid of your partner or ex-partner? No 05/12/2024 Within the last year, have y ou been humiliated or emotionally abused in other ways by your partner or ex-partner? No Within the last year, have y ou been kicked, hit, slapped, or otherwise physically hurt by your partner or ex-partner? No 05/12/2024 Within the last year, have y ou been raped or forced to have any kind of sexual activity by your partner or ex-partner? No 05/12/2024 Social Connection and Isolat ion Panel [NHANES] Answer Date Recorded In a typical week, how many times do you talk on the phone with family, friends, or neighbors? More than three times a week 12/06/2021 How often do you get togethe r with friends or relatives? Three times a week 12/06/2021 How often do you attend chur or evangelical services? Never 12/06/2021 Do you belong to any clubs o r organizations such as adventism groups, unions, fraternal or athletic groups, or school groups? Yes 12/06/2021 How often do you attend meet ings of the clubs or organizations you belong to? Patient declined 12/06/2021 Are you , , di vorced, , never , or living with a partner? Never 12/06/2021 AUDIT-C Answer Date Recorded Q1: How often do you have a drink containing alc ohol? Never 12/06/2021 Average Number of Drinks Not on file 022 Frequency of Binge Drinking Not on file 11/19 Overall Financial Resource Strain (CARDIA) Answe r Date Recorded How hard is it for you to pa y for the very basics like food, housing, medical care, and heating? Not very hard 12/06/2021 PHQ-2 Answer Date Recorded PHQ-2 Score 0 04/06/2024 [facility] - Occupational Stress Questionnaire Answer Date Recorded Do you feel stress - tense, restless, nervous, or anxious, or unable to sleep at night because your mind is troubled all the time - these days? Very much 12/06/2021 Exercise Vital Sign Answer Date Recorde d On average, how many days pe r week do you engage in moderate to strenuous exercise (like a brisk walk)? Patient declined On average, how many minutes do you engage in exercise at this level? Patient declined 05/05/2024 Hunger Vital Sign Answer Date Recorded Within the past 12 months, y ou worried that your food would run out before you got the money to buy more. Never true 05/12/20 24 Within the past 12 months, t he food you bought just didn't last and you didn't have money to get more. Never true 05/12/2024 PRAPARE - Transportation Answer Date Re corded In the past 12 months, has l ack of transportation kept you from medical appointments or from getting medications? No 04/19 In the past 12 months, has l ack of transportation kept you from meetings, work, or from getting things needed for daily living? No 05/12/2024 Depression Answer Date Recor ded PHQ-9 Total Score (max 27) 3 04/06 Nutrition Answer Date Recorded On average, how many serving s of fruits and vegetables do you eat per day (serving size is equal to 1 cup or approximately the size of a tennis ball)? 0-2 05/05/2024 Dental Answer Date Recorded Dental: Regular Dentist No 12/06/19 Employment Answer Date Recorded Employment status Employed but not working due t o illness or injury 05/05/2024 Housing Stability Answer Date Recorded What is your living situation today? [facility] 05/12/2024 Education Answer Date Recorded What is the highest level of school you have completed or the highest degree you have received? 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 Gender Identity Male 08/15/2019 2:16 PM CDT Sexual Orientation Straight 08/15/2019 2: 16 PM CDT Last Filed Vital Signs Vital Sign Reading Time Taken Comments Blood Pressure 135/94 05/20/2024 8:00 AM CDT Pulse 82 05/20/2024 8:00 AM CDT Temperature 36.8 ??C (98.2 ??F) 05/20/2024 7:35 AM CD T Respiratory Rate 17 05/20/2024 7:35 AM CDT Oxygen Saturation 95% 05/20/2024 8:00 AM CDT Inhaled Oxygen Concentration - - Weight 101 kg (221 lb 9 oz) 05/23/2024 10:32 AM CDT Height 172.2 cm (5' 7.8) 05/23/2024 10:32 AM CD T Body Mass Index 33.89 05/23/2024 10:32 AM CDT Plan of Treatment Upcoming Encounters Date Type Department Care Team (Late st Contact Info) Description 06/01/2024 9:30 AM CDT Clinical Support Division of Colon and Rectal Surgery in [address] [phone] Armida Bullock APRN, C.N.P., M.S.N. [address] [place] [phone] 06/07/2024 9:20 AM CDT Lab Department of Infusion Therapy in [place], [place] [address] [place] [phone] Mariluz Soler M.D. [address] [place] [phone] 06/07/2024 11:20 AM CDT Office Visit Department of Oncology in [place], [place] [address] [place] [phone] Mariluz Soler M.D. [address] [place] [phone] 06/07/2024 1:00 PM CDT Infusion Department of Oncology in [place], [place] [address] [place] [address] Mariluz Soler M.D. [address] [place] [phone] 06/17/2024 8:30 AM CDT Appointment Department of Laboratory Medicine and Pathology, [facility] in [place], [place] [address] [place] [phone] Anny Mcneill M.D. [address] [place] [phone] 06/17/2024 9:00 AM CDT Lab Department of Infusion Therapy in [place], [place] [address] [place] [phone] Anny Mcneill M.D. [address] [place] [phone] 06/17/2024 10:45 AM CDT Procedure visit Department of Urology in [place], [place] [address] [place] [phone] Anny Mcneill M.D. [address] [place] [phone] 06/17/2024 1:45 PM CDT Comprehensive Visit Department of Urology in [place], [place] [address] [place] [phone] Ayesha Romero P.A.-C. [address] [place] [phone] 06/17/2024 4:15 PM CDT Comprehensive Visit Department of Urology in [place], [place] [address] [place] [address] Scotty Tom, FORENSIC SCIENCE EXAMINER, C.N.P. [address] [place] [phone] Health Maintenance Due Date Last Done Comments CT Colonography 1982 Cologuard 1982 HIV Screening 1982 Hepatitis C Screening 1982 Visit: Chronic Disease, age 18+ 1982 Pneumococcal vaccine (0-64 years) (1 of 2 - PCV) 1988 Zoster Vaccines (1 of 2) 2001 Hepatitis B Vaccines (3 of 3 - 19+ 3-dose series) 05/26/2016 02/18/2016, 11/26/2015 Hepatitis A Vaccines (3 of 3 - Hep A risk 3-dose series) 07/20/2016 02/18/2016, 11/26/2015 COVID-19 Vaccine (3 - Moderna risk series) 02/06/2021 01/09/2021, 12/14/2020 Influenza Vaccine (#1) 2024 , 07/16/2020, 07/22/2018, Additional history exists Depression Monitoring (PHQ-9) 08/06/2024 04/06/2024 Office Visit for Blood Pressure Check / Re-check 05/11/2025 05/11/2024 Glucose Test for Med Monitoring 05/23/2025 05/23/2024, 05/12/2024, 05/09/2024, Additional history exists Lipid (Cholesterol) Screening 05/23/2025 05/23/2024, 03/08/2022, 08/18/2018, Additional history exists Colonoscopy 03/16/2029 03/16/2024, 03/16/2024 Colorectal Cancer Surveillance 03/16/2029 DTaP,Tdap,and Td Vaccines (8 - Td or Tdap) 07/24/2031 07/24/2021, 01/28/2010, 01/18/1988, Additional history exists HPV Vaccines Aged Out No longer eligi ble based on patient's age to complete this topic Goals Goal Patient Goal Type Associated Problems Recent Progress Patient-Stated? Author Eat a balanced, healthy diet Diet Worsening( 11:49 AM CDT) Yes Nadia Nickerson R.N. Note: 02/14/20 - Has one regular meal daily (supper), otherwise not as hungry and snacks on fruit in AM, chips in evening. Will readdress his dietary goals and see if this makes a difference in his mood. Read Managing My Depression General Improving( 11:43 AM CDT) Yes Pleasure BendNadia R.N. Note: P. 46-48 Create a relapse prevention plan. Spend time with my dog again. General On track( 11:43 AM CDT) Yes Nadia Nickerson R.N. Have some time to himself regularly. General On track( 11:47 AM CDT) Yes [place], Nadia Boone R.N. Note: 01/24/20 - More structure to his day. 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 Recognizing he needs more personal time. Meet with therapist regularly General On track( 11:43 AM CDT) Yes [place], Nadia Boone R.N. Note: Dr. Pavan Sorensen, with [facility] in [place], [place]. Take your medication every day Lifestyle On track( 11:49 AM CDT) No Pleasure BendNadia, R.N. Note: Increased Wellbutrin to 300 mg daily 02/09/20. PHQ-9 Total Score (max 27) < 5 Symptom Management 3(04/06/2024 7:51 PM CDT) No Nadia Nickerson, R.N. Note: Enrollment PHQ9=18 on 08/16/19 Patient goals at enrollment: 1. I'd like to have my depression be less intense. 2. I'd like to learn some coping strategies. 3. I'd like to learn how to keep my depression from flaring back again Medical Devices Implanted Type Area Shelf Stocker Device Identifier Shelf Expiration Date Model / Serial / Lot Clp Hrzn Ti 24 Clp Mihai - [id number] Implanted:Qt y: 1 on 03/29/2024 by Chris Viera D.O., M.B.A. at [facility] Hardware e.g. pins/screws/ro ds N/A: Abdom[employer] [id number] / / Clp Hrzn Ti 24 Clp Mihai - [id number] Implanted:Qt y: 1 on 03/29/2024 by Chris Viera D.O., M.B.A. at [facility] Hardware e.g. pins/screws/ro ds N/A: Abdom[employer] [id number] / / Clp Hrzn Ti 6 Clp Lg Orng - [id number] Implanted:Qt y: 1 on 03/29/2024 by Chris Viera D.O., M.B.A. at [facility] Hardware e.g. pins/screws/ro ds N/A: Abdom[employer] [id number] / / Clp Hrzn Ti 6 Clp Lg Orng - [id number] Implanted:Qt y: 1 on 03/29/2024 by Chris Viera D.O., M.B.A. at [facility] Hardware e.g. pins/screws/ro ds N/A: Abdomen [employer] [id number] / / Prt Cath Infus Mri Intrmd 8f - [id number] Implanted:Qt y: 1 on 09/22/2023 by Dave Butcher M.D. at [facility]/[employer] Implant[employer] [place] [employer] 04/17/2025 [id number] / / [id number] Radiation Oncology Therapist Inf [facility] Hiflo 30ml - [id number] - [id number] Implanted:Qt y: 1 on 03/29/2024 by Chris Viera D.O., M.B.A. at [facility] Int. Infusion Pump Intrathecal N/A: Abdomen Codman 01/16/2025 [id number] / [id number] / Procedures Procedure Name Priority Date/Time Associated Diagnosis Comments LIPID PANEL, S Routine 05/23/2024 9:21 AM CDT 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) BILIRUBIN DIRECT, S/P Routine 05/23/2024 9:21 AM CDT 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) COMPREHENSIVE METABOLIC PANEL, S/P Routine 05/23/2024 9:21 AM CDT 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) CBC WITH DIFFERENTIAL, B Routine 05/23/2024 9:21 AM CDT 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) IR ABSCESS DRAIN CHECK RAD - Routine (most inpatients and all outpatients) 05/20/2024 8:08 AM CDT Malignant Neoplasm Of Rectum (HCC) Secondary Malignant Neoplasm Liver (HCC) Abdominal Pain PH, U Routine 05/13/2024 8:08 PM CDT OSMOLALITY, U Routine 05/13/2024 8:08 PM CDT DIPSTICK, U Routine 05/13/2024 8:08 PM CDT MICROSCOPIC AUTOMATED Routine 05/13/2024 8:08 PM CDT URINALYSIS WITH MICROSCOPIC Routine 05/13/2024 8:08 PM CDT BACTERIAL CULTURE, AEROBIC + SUSC, URINE Routine 05/13/2024 8:[address] ABDOMEN PELVIS WITH IV CONTRAST RAD - Semiurgent (Fast; most ED patients; some inpatients) 05/12/2024 4:18 PM CDT LACTATE, B/P STAT 05/12/2024 3:46 PM CDT HEPATIC FUNCTION PANEL, S STAT 05/12/2024 3:46 PM CDT BASIC METABOLIC PANEL, S/P STAT 05/12/2024 3:46 PM CDT CBC WITH DIFFERENTIAL, B STAT 05/12/2024 3:46 PM CDT LIPASE, S/P STAT 05/12/2024 3:[address] ABDOMEN PELVIS WITH IV CONTRAST RAD - Routine (most inpatients and all outpatients) 05/10/2024 1:[address] ABDOMEN AND/OR PELVIS DRAIN PLACEMENT RAD - Routine (most inpatients and all outpatients) 05/10/2024 12:56 PM CDT FUNGAL SMEAR Timed 05/10/2024 12:22 PM CDT Other Intra Abdominal And Pelvic Swelling Mass And Lump FUNGAL CULTURE, ROUTINE Timed 05/10/2024 12:22 PM CDT Other Intra Abdominal And Pelvic Swelling Mass And Lump GRAM STAIN Timed 05/10/2024 12:22 PM CDT Other Intra Abdominal And Pelvic Swelling Mass And Lump BACTERIAL CULTURE, AEROBIC + SUSC Timed 05/10/2024 12:22 PM CDT Other Intra Abdominal And Pelvic Swelling Mass And Lump BASIC METABOLIC PANEL, S/P Routine 05/09/2024 11:57 PM CDT CBC WITH DIFFERENTIAL, B Routine 05/09/2024 11:[address] ABDOMEN PELVIS WITH IV CONTRAST RAD - Semiurgent (Fast; most ED patients; some inpatients) 05/09/2024 3:47 PM CDT LACTATE, B/P STAT 05/09/2024 2:53 PM CDT HEPATIC FUNCTION PANEL, S STAT 05/09/2024 2:53 PM CDT PROTHROMBIN TIME (PT), P STAT 05/09/2024 2:53 PM CDT C-REACTIVE PROTEIN (CRP), S/P STAT 05/09/2024 2:53 PM CDT BASIC METABOLIC PANEL, S/P STAT 05/09/2024 2:53 PM CDT CBC WITH DIFFERENTIAL, B STAT 05/09/2024 2:53 PM CDT LIPASE, S/P STAT 05/09/2024 2:52 PM CDT CRS STOMAL THERAPY Routine 05/06/2024 9: 34 AM CDT Ileostomy Status (HCC) CT CHEST WITH IV CONTRAST RAD - Routine (most inpatients and all outpatients) 05/06/2024 9:17 AM CDT 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) CT ABDOMEN PELVIS WITH IV CONTRAST RAD - Routine (most inpatients and all outpatients) 05/06/2024 9:17 AM CDT 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) [email or web address] [facility] [employer]-SENT OUT [facility] Routine 05/02/2024 10:04 AM CDT CRS STOMAL THERAPY Routine 05/02/2024 8: 21 AM CDT Ileostomy Status (HCC) BILIRUBIN DIRECT, S/P Routine 04/26/2024 9:16 AM CDT 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) Malignant Neoplasm Of Rectum (HCC) Secondary Malignant Neoplasm Liver (HCC) COMPREHENSIVE METABOLIC PANEL, S/P Routine 04/26/2024 9:16 AM CDT 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) Malignant Neoplasm Of Rectum (HCC) Secondary Malignant Neoplasm Liver (HCC) CBC WITH DIFFERENTIAL, B Routine 04/26/2024 9:16 AM CDT 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) Malignant Neoplasm Of Rectum (HCC) Secondary Malignant Neoplasm Liver (HCC) CRS STOMAL THERAPY Routine 04/12/2024 2: 38 PM CDT 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) NM HEPATIC PUMP EVALUATION SPECT CT RAD - Routine (most inpatients and all outpatients) 04/05/2024 12:39 PM CDT 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) PERFORM CENTRAL WAX PATTERN COATER Routine 04/03/2024 9:56 AM CDT COMPREHENSIVE METABOLIC PANEL, S/P Routine 04/02/2024 8:36 PM CDT PHOSPHORUS (INORGANIC), S Routine 04/02/2024 8:36 PM CDT CBC WITHOUT DIFFERENTIAL, B Routine 04/02/2024 8:36 PM CDT PROTHROMBIN TIME (PT), P Routine 04/02/2024 3:49 AM CDT PHOSPHORUS (INORGANIC), S Routine 04/02/2024 3:49 AM CDT HEPATIC FUNCTION PANEL, S Routine 04/02/2024 3:49 AM CDT CBC WITHOUT DIFFERENTIAL, B Routine 04/02/2024 3:49 AM CDT BASIC METABOLIC PANEL, S/P Routine 04/02/2024 3:49 AM CDT MAGNESIUM, S Routine 04/02/2024 3:49 AM CDT CBC WITHOUT DIFFERENTIAL, B Timed 04/01/2024 7:30 AM CDT PROTHROMBIN TIME (PT), P Routine 04/01/2024 3:43 AM CDT PHOSPHORUS (INORGANIC), S Routine 04/01/2024 3:43 AM CDT HEPATIC FUNCTION PANEL, S Routine 04/01/2024 3:43 AM CDT CBC WITHOUT DIFFERENTIAL, B Routine 04/01/2024 3:43 AM CDT BASIC METABOLIC PANEL, S/P Routine 04/01/2024 3:43 AM CDT MAGNESIUM, S Routine 04/01/2024 3:43 AM CDT MAGNESIUM, S Routine 03/30/2024 8:51 PM CDT PHOSPHORUS (INORGANIC), S Routine 03/30/2024 8:51 PM CDT HEPATIC FUNCTION PANEL, S Routine 03/30/2024 8:51 PM CDT BASIC METABOLIC PANEL, S/P Routine 03/30/2024 8:51 PM CDT CBC WITHOUT DIFFERENTIAL, B Routine 03/30/2024 8:51 PM CDT CBC WITHOUT DIFFERENTIAL, B Routine 03/30/2024 4:12 AM CDT BASIC METABOLIC PANEL, S/P Routine 03/30/2024 4:12 AM CDT PROTHROMBIN TIME (PT), P Routine 03/30/2024 4:12 AM CDT HEPATIC FUNCTION PANEL, S Routine 03/30/2024 4:12 AM CDT US GUIDANCE INTRAOPERATIVE RAD - Routine (most inpatients and all outpatients) 03/29/2024 2:09 PM CDT Secondary Malignant Neoplasm Liver (HCC) PATIENT STATUS, ABG STAT 03/29/2024 1 :28 PM CDT LACTATE, B STAT 03/29/2024 1:28 PM CDT GLUCOSE, WHOLE BLOOD STAT 03/29/2024 1:28 PM CDT POTASSIUM, B STAT 03/29/2024 1:28 PM CDT SODIUM, B STAT 03/29/2024 1:28 PM CDT CALCIUM, IONIZED, S/B STAT 03/29/2024 1:28 PM CDT ABG W/COOX STAT 03/29/2024 1:28 PM CDT PATIENT STATUS, ABG STAT 03/29/2024 11:28 AM CDT LACTATE, B STAT 03/29/2024 11:28 AM CDT GLUCOSE, WHOLE BLOOD STAT 03/29/2024 11:28 AM CDT POTASSIUM, B STAT 03/29/2024 11:28 AM CDT SODIUM, B STAT 03/29/2024 11:28 AM CDT CALCIUM, IONIZED, S/B STAT 03/29/2024 11:28 AM CDT ABG W/COOX STAT 03/29/2024 11:28 AM CDT SURGICAL PATHOLOGY, [facility] Routine 03/29/2024 10:18 AM CDT Malignant Neoplasm Of Rectum (HCC) Secondary Malignant Neoplasm Liver (HCC) MISCELLANEOUS GARCIA, INC-SENT OUT LAB Routine 03/29/2024 10:18 AM CDT LDA ANE ARTERIAL LINE INSERTION Routine 03/29/2024 9:04 AM CDT ND ARTL CATH/CNULA MONITOR PERC Routine 03/29/2024 9:04 AM CDT AIRWAY MANAGEMENT Routine 03/29/2024 8:0 8 AM CDT ND INJ SPINE LUMB/SAC WO IMG Routine 03/29/2024 7:59 AM CDT SIGMOIDOSCOPY FLEXIBLE 7:30 AM CDT Malignant Neoplasm Of Rectum (HCC) Secondary Malignant Neoplasm Liver (HCC) CONSTRUCTION ILEOSTOMY 7:30 AM CDT Malignant Neoplasm Of Rectum (HCC) Secondary Malignant Neoplasm Liver (HCC) RESECTION LOW ANTERIOR WITH ANASTOMOSIS 03/29/2024 7:30 AM CDT Malignant Neoplasm Of Rectum (HCC) Secondary Malignant Neoplasm Liver (HCC) CHOLECYSTECTOMY 03/29/2024 7:30 AM CDT Malignant Neoplasm Of Rectum (HCC) Secondary Malignant Neoplasm Liver (HCC) ABLATION LESION LIVER 03/29/2024 7:30 AM CDT Malignant Neoplasm Of Rectum (HCC) Secondary Malignant Neoplasm Liver (HCC) ULTRASOUND LIVER 03/29/2024 7:30 AM CDT Malignant Neoplasm Of Rectum (HCC) Secondary Malignant Neoplasm Liver (HCC) WEDGE RESECTION LIVER 03/29/2024 7:30 AM CDT Malignant Neoplasm Of Rectum (HCC) Secondary Malignant Neoplasm Liver (HCC) HEPATIC ARTERY INFUSION PUMP PLACEMENT 03/29/2024 7:30 AM CDT Malignant Neoplasm Of Rectum (HCC) Secondary Malignant Neoplasm Liver (HCC) PATHOLOGY IMAGE EXAM Routine 03/29/2024 12:00 AM CDT ARIA COURSE COMPLETE TREATMENT INFORMATION Routine 03/28/2024 2:26 PM CDT ARIA DAILY TREATMENT INFORMATION Routine 03/28/2024 2:26 PM CDT ARIA DAILY TREATMENT INFORMATION Routine 03/26/2024 8:32 AM CDT ARIA DAILY TREATMENT INFORMATION Routine 03/25/2024 1:07 PM CDT ARIA DAILY TREATMENT INFORMATION Routine 03/24/2024 4:48 PM CDT CRS STOMAL THERAPY Routine 03/24/2024 3: 25 PM CDT Malignant Neoplasm Of Rectum (HCC) ARIA DAILY TREATMENT INFORMATION Routine 03/23/2024 3:42 PM CDT ARIA COURSE COMPLETE TREATMENT INFORMATION Routine 03/23/2024 9:20 AM CDT INITIAL RAD ONC TREATMENT PLANNING CT SIMULATION Routine 03/22/2024 3:30 PM CDT Malignant Neoplasm Of Rectum (HCC) CARCINOEMBRYONIC AG (CEA), S Routine 03/21/2024 8:57 AM CDT 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) BILIRUBIN DIRECT, S/P Routine 03/21/2024 8:57 AM CDT 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) PROTHROMBIN TIME (PT), P Routine 03/21/2024 8:57 AM CDT 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) COMPREHENSIVE METABOLIC PANEL, S/P Routine 03/21/2024 8:57 AM CDT 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) CBC WITH DIFFERENTIAL, B Routine 03/21/2024 8:57 AM CDT 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) TYPE AND SCREEN Routine 03/21/2024 8:57 AM CDT Malignant Neoplasm Of Rectum (HCC) Secondary Malignant Neoplasm Liver (HCC) CT ABDOMEN PELVIS WITH IV CONTRAST RAD - Routine (most inpatients and all outpatients) 03/21/2024 8:17 AM CDT 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) CT CHEST WITH IV CONTRAST RAD - Routine (most inpatients and all outpatients) 03/21/2024 8:17 AM CDT 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) SURGICAL PATHOLOGY Routine 03/16/2024 2: 17 PM CDT GASTROENTEROLOGY IMAGE EXAM Routine 03/16/2024 1:55 PM CDT COLONOSCOPY Routine 03/16/2024 1:51 PM CDT 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) COLONOSCOPY Routine 03/16/2024 1:51 PM CDT 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) from Last 3 Months Results * Lipid Panel (05/23/2024 9:21 AM CDT) Triglycerides 95 mg/dL 05/23/2024 10:14 AM CDT DTL Comment: ----REFERENCE VALUE---- Normal: <150 mg/dL Borderline High: 150-199 mg/dL High: 200-499 mg/dL Very High: > or =500 mg/dL Cholesterol, Total 151 mg/dL 2023 10:14 AM CDT DTL Comment: ----REFERENCE VALUE---- Desirable: < 200 mg/dL Borderline High: 200 - 239 mg/dL High: > or = 240 mg/dL Cholesterol, LDL, Calculated 75 mg/dL 05/23/2024 10:14 AM CDT DTL Comment: ----REFERENCE VALUE---- Desirable: <100 mg/dL Above Desirable: 100-129 mg/dL Borderline High: 130-159 mg/dL High: 160-189 mg/dL Very High: >=190 mg/dL ----ADDITIONAL INFORMATION---- LDL cholesterol calculated using the Mack/NIH equation. Cholesterol, HDL, S 58 >=40 mg/dL 05/23/2024 10:14 AM CDT DTL Cholesterol, Non-HDL, Calculated 93 mg/dL 05/23/2024 10:14 AM CDT DTL Comment: ----REFERENCE VALUE---- Desirable: <130 mg/dL Above Desirable: 130-159 mg/dL Borderline High: 160-189 mg/dL High: 190-219 mg/dL Very High: > or =220 mg/dL Fasting (8 HR or more) No 05/23/2024 9:21 AM CDT DTL Blood (Blood, Venous) 05/23/2024 9:21 AM CDT 05/23/2024 9:53 AM CDT Tasia Paula APRN.N.P., M.S. LA B BLOOD ADD-ON [facility] [address] [place] [address], [facility] [address] [place] [address] * (ABNORMAL) CBC with Differential, Blood (05/23/2024 9:21 AM CDT) Only the most recent of6 resultswithin the time period is included. Hemoglobin 13.5 13.2 - 16.6 g/dL 05/23/2024 10:35 AM CDT DTL Hematocrit 42.0 38.3 - 48.6 % 05/23/2024 10:35 AM CDT DTL Erythrocytes 4.82 4.35 - 5.65 x10(12)/L 05/23/2024 10:35 AM CDT DTL MCV 87.1 78.2 - 97.9 fL 05/23/2024 10:35 AM CDT DTL RBC Distrib Width 12.7 11.8 - 14.5 % 05/23/2024 10:35 AM CDT DTL Platelet Count 383(H) 135 - 317 x10(9)/L 05/23/2024 10:35 AM CDT DTL Leukocytes 7.3 3.4 - 9.6 x10(9)/L 05/23/2024 10:35 AM CDT DTL Neutrophils 5.44 1.56 - 6.45 x10(9)/L 05/23/2024 10:35 AM CDT DHPM Lymphocytes 1.06 0.95 - 3.07 x10(9)/L 05/23/2024 10:35 AM CDT DTL Monocytes 0.64 0.26 - 0.81 x10(9)/L 05/23/2024 10:35 AM CDT DTL Eosinophils 0.13 0.03 - 0.48 x10(9)/L 05/23/2024 10:35 AM CDT DTL Basophils 0.06 0.01 - 0.08 x10(9)/L 05/23/2024 10:35 AM CDT DTL Blood (Blood, Venous) 05/23/2024 9:21 AM CDT 05/23/2024 9:39 AM CDT Patsy Bowser APRN, C.N.P., M.SSolitario [place] [address] * Bilirubin, Direct (05/23/2024 9:21 AM CDT) Only the most recent of3 resultswithin the time period is included. Bilirubin, Direct, S <0.2 0.0 - 0.3 mg/dL 05/23/2024 10:14 AM CDT DTL Blood (Blood, Venous) 05/23/2024 9:21 AM CDT 05/23/2024 9:53 AM CDT Uriel Paula APRNN.Jarod, M.S. KASANDRA [place] [address] * (ABNORMAL) Comprehensive Metabolic Panel (05/23/2024 9:21 AM CDT) Only the most recent of4 resultswithin the time period is included. Potassium, S 4.4 3.6 - 5.2 mmol/L 05/23/2024 10:14 AM CDT DTL Sodium, S 140 135 - 145 mmol/L 05/23/2024 10:14 AM CDT DTL Chloride, S 103 98 - 107 mmol/L 05/23/2024 10:14 AM CDT DTL Bicarbonate, S 25 22 - 29 mmol/L 05/23/2024 10:14 AM CDT DTL Anion Gap 12 7 - 15 05/23/2024 10:14 AM CDT DTL BUN (Blood Urea Nitrogen), S 17 8 - 24 mg/dL 05/23/2024 10:14 AM CDT DTL Creatinine 0.87 0.74 - 1.35 mg/dL 05/23/2024 10:14 AM CDT DTL Estimated GFR (eGFR) >90 >=60 mL/min/BS A 05/23/2024 10:14 AM CDT DTL Comment: Estimated GFR calculated using the 2020 CKD_EPI creatinine equation. Calcium, Total, S 9.3 8.6 - 10.0 mg/dL 05/23/2024 10:14 AM CDT DTL Glucose, S 86 70 - 140 mg/dL 05/23/2024 10:14 AM CDT DTL Protein, Total, S 6.5 6.3 - 7.9 g/dL 05/23/2024 10:14 AM CDT DTL Albumin, S 4.0 3.5 - 5.0 g/dL 05/23/2024 10:14 AM CDT DTL Aspartate Aminotransferase (AST), S 37 8 - 48 U/L 05/23/2024 10:14 AM CDT DTL Alkaline Phosphatase, S 250(H) 40 - 129 U/L 05/23/2024 10:14 AM CDT DTL Alanine Aminotransferase (ALT), S 80(H) 7 - 55 U/L 05/23/2024 10:14 AM CDT DTL Bilirubin, Total, S 0.3 0.0 - 1.2 mg/dL 05/23/2024 10:14 AM CDT DTL Blood (Blood, Venous) 05/23/2024 9:21 AM CDT 05/23/2024 9:53 AM CDT Patsy L N[address] C.N.P., Maria Guadalupe GOODEN BLOOD ADD-ON [facility] [address] [place] [address], [place] DTL [facility] [address] [place] [address] * IR Abscess Drain Check (05/20/2024 8:08 AM CDT) Anatomical Region Laterality Modality Body, Vascular Interventiona l RST LOS, Vascular Interventional ARZ LOS, Vascular Interventional FLA LOS N/A X-Ray Angiography Impressions 05/20/2024 12:03 PM CDT Sinogram demonstrated presacral collection well controlled by the indwelling drain. Flush catheter with 5 mL of normal saline twice daily. Repeat sinogram in approximately 7-10 days. EP Narrative 05/20/2024 12:03 PM CDT EXAM: IR ABSCESS DRAIN CHECK CLINICAL HISTORY: Pelvic collection status post percutaneous drain placement. Patient reports recent drain output of approximately 20 mL daily. TECHNIQUE: Patient was placed in the right lateral decubitus position. [employer] Curator image showed a pigtail catheter projecting over the pelvis. Diagnostic sinogram showed presacral collection well controlled by the drain. No drain manipulation or exchange was performed. No immediate complication. PREPROCEDURE: Patient seen and evaluated. Allergies, pertinent medications, and history reviewed. Discussed risks, benefits, alternatives for procedure, and obtained informed consent. Patient understands information and questions answered. Immediately prior to starting the procedure, in the presence of the assisting personnel, procedural pause was conducted to verify correct patient identity and verification of procedure to be performed, and as applicable, correct side and site, correct patient position, availability of implants, special equipment, or special requirements, and all image and specimen identification data. The roles and responsibilities of care team members, residents, and fellows were discussed. Procedure Note Jason Silveira M.D. - 05/20/2024 EXAM: IR ABSCESS DRAIN CHECK CLINICAL HISTORY: Pelvic collection status post percutaneous drainplacement. Patient reports recent drain output of approximately 20 mLdaily. TECHNIQUE: Patient was placed in the right lateral decubitus position.[employer] Curator image showed a pigtail catheter projecting over the pelvis.Diagnostic sinogram showed presacral collection well controlled by thedrain. No drain manipulation or exchange was performed. No immediate complication. PREPROCEDURE: Patient seen and evaluated. Allergies, pertinentmedications, and history reviewed. Discussed risks, benefits, alternativesfor procedure, and obtained informed consent. Patient understandsinformation and questions answered. Immediately prior to starting the procedure, in the presence of the assistingpersonnel, procedural pause was conducted to verify correct patientidentity and verification of procedure to be performed, and as applicable,correct side and site, correct patient position, availability of implants, special equipment, or specialrequirements, and all image and specimen identification data. The rolesand responsibilities of care team members, residents, and fellows werediscussed. IMPRESSION: Sinogram demonstrated presacral collection well controlled by theindwelling drain. Flush catheter with 5 mL of normal saline twice daily.Repeat sinogram in approximately 7-10 days. EP Tej Lee, Rich, M.P.H. IM IR PROCEDURES * (ABNORMAL) Dipstick, Urine (05/13/2024 8:08 PM CDT) Hemoglobin, QL, U Negative Negative 05/13/2024 8:26 PM CDT DTL Leukocyte Esterase, U Moderate(A) Negative 05/13/2024 8:26 PM CDT DTL Nitrite, U Negative Negative 05/13/2024 8:26 PM CDT DTL Ketone, U Negative Negative mg/dL 05/13/2024 8:26 PM CDT DTL Glucose, U Negative Negative mg/dL 05/13/2024 8:26 PM CDT DTL Urine 05/13/2024 8:08 PM CDT 05/13/2024 8:16 PM CDT Ravi Covarrubias M.D., Ph.D. LAB URINE OR DERABLES [facility] [address] [place] [address], [facility] [address] [place] [address] * (ABNORMAL) Microscopic Automated (05/13/2024 8:08 PM CDT) Microscopy Abnormal 05/13/2024 8:26 PM CDT DTL RBC 3-10(A) <3 /hpf 05/13/2024 8:26 PM CDT DTL Dysmorphic RBC <25 <25 % 05/13/2024 8:26 PM CDT DTL WBC 31-40(A) /hpf 05/13/2024 8:26 PM CDT DTL Comment: ----REFERENCE VALUE---- <4 ??(Males) <11 (Females) Urine 05/13/2024 8:08 PM CDT 05/13/2024 8:16 PM CDT Ravi Covarrubias M.D., Ph.D. LAB URINE OR DERABLES [facility] [address] [place] [address], [facility] [address] [place] [address] * (ABNORMAL) Bacterial Culture, Aerobic + Susceptibility, Urine (05/13/2024 8:08 PM CDT) Pathologist [facility] Urine Culture STAPHYLOCOCCUS EPIDERMIDIS >100,000 cfu/mL (A) 05/16/2024 2:16 PM CDT DTL Urine (Urine, Straight Catheter) 05/13/2024 8:08 PM CDT 05/13/2024 8:29 PM CDT Comment:Specimen Source Site : Urine Narrative Organism Antibiotic Method Susceptibility Staphylococcus epidermidis Oxacillin SUSCEPTIBILITY, ANTHONY (MCG/ML) 0.5 mcg/mL: Susceptible Comment: Use oxacillin interpretation to predict results for anti-staphylococcal beta-lactam antibiotics (except ceftaroline). Staphylococcus epidermidis Vancomycin SUSCEPTIBILITY, ANTHONY (MCG/ML) 2 mcg/mL: Susceptible Staphylococcus epidermidis Levofloxacin SUSCEPTIBILITY, ANTHONY (MCG/ML) <=0.5 mcg/mL: Susceptible Comment: Fluoroquinolones have a limited role in treatment of staphylococcal infections; consult Infectious Diseases if considering usage. Staphylococcus epidermidis Trimethoprim + Sulfamethoxazole SUSCEPTIBILITY, ANTHONY (MCG/ML) <=0.5/9.5 mcg/mL: Susceptible Staphylococcus epidermidis Nitrofurantoin SUSCEPTIBILITY, ANTHONY (MCG/ML) <=32 mcg/mL: Susceptible Staphylococcus epidermidis Rifampin SUSCEPTIBILITY, ANTHONY (MCG/ML) <=0.5 mcg/mL: Susceptible Comment:Rifampin laura uld not be used as monotherapy Ravi Covarrubias M.D., Ph.D. LAB MICROBIO LOGY - GENERAL ORDERABLES Performing Organization Address City/[facility]/ZIP Co de Phone Number [facility] [address] [place] [address] * pH, Urine (05/13/2024 8:08 PM CDT) pH, U 5.8 4.5 - 8.0 05/13/2024 8:3 1 PM CDT DTL Urine 05/13/2024 8:08 PM CDT 05/13/2024 8:16 PM CDT Ravi Covarrubias M.D., Ph.D. LAB URINE OR DERABLES Performing Organization Address City/[facility]/ZIP Co de Phone Number [facility] [address] [place], [place] [id number] [place] [address] [address] [place] [address] * Osmolality, Urine (05/13/2024 8:08 PM CDT) Pathologist [facility] Osmolality, U 729 150 - 1150 mOsm/kg 05/13/2024 8:31 PM CDT DTL Urine 05/13/2024 8:08 PM CDT 05/13/2024 8:16 PM CDT Ravi Covarrubias M.D., Ph.D. LAB URINE OR DERABLES Performing Organization Address City/[facility]/ZIP Co de Phone Number [facility] [address] [place] [address], [facility] [address] [place] [address] * Urinalysis, with Microscopic: Urine, Straight Catheter (05/13/2024 8:08 PM CDT) Source Urine, Urine, Straight Catheter 05/13/2024 8:16 PM CDT DTL Color, U Yellow 05/13/2024 8:16 PM CDT DTL Clarity, U Clear 05/13/2024 8:16 PM CDT DTL Protein, U 10 <26 mg/dL 05/13/2024 8:53 PM CDT DTL Protein/Osmola lity 0.14 <0.42 ratio 05/13/2024 8:53 PM CDT DTL Predicted 24 HR Protein, U 142 <229 mg/24 h 05/13/2024 8:53 PM CDT DTL Predicted Range 45-447 mg/24 h 05/13/2024 8:53 PM CDT DTL Urine (Urine, Straight Catheter) 05/13/2024 8:08 PM CDT 05/13/2024 8:16 PM CDT Ravi Covarrubias M.D., Ph.D. LAB URINE OR DERABLES [address] [address], [facility] [address] [place] [address] * CT Abdomen Pelvis with IV Contrast (05/12/2024 4:18 PM CDT) Only the most recent of5 resultswithin the time period is included. Anatomical Region Laterality Modality Abdomen, Pelvis, Abdominal R ST LOS, Abdominal ARZ LOS, Abdominal FLA LOS N/A Computed Tomograp hy, Computed Tomography 05/12/2024 4:15 PM CDT Impressions 05/12/2024 5:16 PM CDT 1. No acute findings in the abdomen or pelvis. 2. Stable fluid collection between the superior pancreatic head and posterior inferior distal stomach. Unchanged positioning of the hepatic artery infusion pump. 3. Unchanged presacral fluid collection with pigtail drainage catheter. Narrative 05/12/2024 5:16 PM CDT EXAM: ??CT ABDOMEN PELVIS WITH IV CONTRAST COMPARISON: ??CT abdomen pelvis with IV contrast 05/10/2024. FINDINGS: ??Since 05/10/2024, no substantial interval change. Postoperative changes of low anterior resection with right lower quadrant diverting loop ileostomy. Left anterior abdominal wall hepatic artery infusion pump with tip terminating in or near the common hepatic artery in unchanged position. This exam is not optimized to evaluated the arterial vasculature. Allowing for differences in technique, no substantial change in the fluid collection between the superior pancreatic head and posterior inferior distal stomach now measuring 3.1 x 1.7 cm (series 3 image 42), previously 3.0 x 1.6 cm. Multiple hepatic lobe ablations and resections. Cholecystectomy. The spleen and adrenal glands are unremarkable. Renal cysts. No bowel obstruction. Unchanged positioning of the presacral drain. The presacral fluid collection is stable to minimally decreased in size since the prior study. Calcified pulmonary granulomas. No suspicious bone lesion. Procedure Note Augustine Truong M.D. - 05/12/2024 EXAM: CT ABDOMEN PELVIS WITH IV CONTRAST COMPARISON: CT abdomen pelvis with IV contrast 05/10/2024. FINDINGS: Since 05/10/2024, no substantial interval change. Postoperativechanges of low anterior resection with right lower quadrant diverting loopileostomy. Left anterior abdominal wall hepatic artery infusion pump withtip terminating in or near the common hepatic artery in unchanged position. This exam is not optimized toevaluated the arterial vasculature. Allowing for differences in technique, no substantial change in the fluidcollection between the superior pancreatic head and posterior inferiordistal stomach now measuring 3.1 x 1.7 cm (series 3 image 42), previously3.0 x 1.6 cm. Multiple hepatic lobe ablations and resections. Cholecystectomy. Thespleen and adrenal glands are unremarkable. Renal cysts. No bowelobstruction. Unchanged positioning of the presacral drain. The presacralfluid collection is stable to minimally decreased in size since the prior study. Calcified pulmonary granulomas.No suspicious bone lesion. IMPRESSION: 1. No acute findings in the abdomen or pelvis. 2. Stable fluid collection between the superior pancreatic head andposterior inferior distal stomach. Unchanged positioning of the hepaticartery infusion pump. 3. Unchanged presacral fluid collection with pigtail drainage catheter. Mode Corbett P.A.-C. IMG CT PROCEDURES * (ABNORMAL) Hepatic Function Panel (05/12/2024 3:46 PM CDT) Only the most recent of6 resultswithin the time period is included. Bilirubin, Total, S 0.3 0.0 - 1.2 mg/dL 05/12/2024 4:30 PM CDT DTL Bilirubin, Direct, S <0.2 0.0 - 0.3 mg/dL 05/12/2024 4:30 PM CDT DTL Aspartate Aminotransferase (AST), S 40 8 - 48 U/L 05/12/2024 4:30 PM CDT DTL Alanine Aminotransferase (ALT), S 63(H) 7 - 55 U/L 05/12/2024 4:30 PM CDT DTL Alkaline Phosphatase, S 198(H) 40 - 129 U/L 05/12/2024 4:30 PM CDT DTL Albumin, S 4.1 3.5 - 5.0 g/dL 05/12/2024 4:30 PM CDT DTL Protein, Total, S 6.4 6.3 - 7.9 g/dL 05/12/2024 4:30 PM CDT DTL Blood (Blood, Venous) 05/12/2024 3:46 PM CDT 05/12/2024 4:14 PM CDT Mode Corbett P.A.-C. LAB BLOOD ADD-ON [facility] [address] [place] [address], [facility] [address] [place] [address] * Lactate (05/12/2024 3:46 PM CDT) Only the most recent of2 resultswithin the time period is included. Lactate, P 1.0 0.5 - 2.2 mmol/L 05/12/2024 4:13 PM CDT STMA Blood (Blood, Venous) 05/12/2024 3:46 PM CDT 05/12/2024 3:55 PM CDT Mode Corbett P.A.-C. LAB BLOOD NON ADD -ON [facility] [address] [place] [address], [facility] STMA [facility] [address] [place] [address] * Basic Metabolic Panel (05/12/2024 3:46 PM CDT) Only the most recent of7 resultswithin the time period is included. Pathologist [facility] Potassium, P 4.5 3.6 - 5.2 mmol/L 05/12/2024 4:16 PM CDT STMA Sodium, P 140 135 - 145 mmol/L 05/12/2024 4:16 PM CDT STMA Chloride, P 100 98 - 107 mmol/L 05/12/2024 4:16 PM CDT STMA Bicarbonate, P 28 22 - 29 mmol/L 05/12/2024 4:16 PM CDT STMA Anion Gap, P 12 7 - 15 05/12/2024 4:16 PM CDT STMA BUN (Blood Urea Nitrogen), P 16 8 - 24 mg/dL 05/12/2024 4:16 PM CDT STMA Creatinine 0.77 0.74 - 1.35 mg/dL 05/12/2024 4:16 PM CDT STMA Estimated GFR (eGFR) >90 >=60 mL/min/BSA 05/12/2024 4:16 PM CDT STMA Comment: Estimated GFR calculated using the 2020 CKD_EPI creatinine equation. Calcium, Total, P 9.3 8.6 - 10.0 mg/dL 05/12/2024 4:16 PM CDT STMA Glucose, P 95 70 - 140 mg/dL 05/12/2024 4:16 PM CDT STMA Blood (Blood, Venous) 05/12/2024 3:46 PM CDT 05/12/2024 3:55 PM CDT Mode Corbett P.A.-C. LAB BLOOD ADD-ON [facility] [address] [place] [address], [facility] STMA [facility] [address] [place] [address] * Lipase (05/12/2024 3:40 PM CDT) Only the most recent of2 resultswithin the time period is included. Lipase, S 35 13 - 60 U/L 05/12/2024 6: 57 PM CDT DTL Blood (Blood, Venous) 05/12/2024 3:40 PM CDT 05/12/2024 6:39 PM CDT Patsy Zhou M.D. LAB BLOOD ADD-ON [facility] [address] [place] [address], [facility] DTL [facility] [address] [place] [address] * CT Abdomen and/or Pelvis Drain Placement (05/10/2024 12:56 PM CDT) Anatomical Region Laterality Modality Abdominal RST LOS, Procedura l, Vascular Interventional ARZ LOS, Procedure FLA LOS, Procedural NWWI LOS N/A Computed Tomography, Compute d Tomography Impressions 05/10/2024 2:02 PM CDT 1. Placement of a 10 [place] locking loop catheter into the presacral fluid collection. 2. Recommend flushing and ??aspirating the catheter with 10 ml of saline twice daily. 3. Consider sinogram in interventional radiology in a few days for catheter evaluation. EP Narrative 05/10/2024 2:02 PM CDT EXAM: CT ABDOMEN AND/OR PELVIS DRAIN PLACEMENT PRE-PROCEDURE: Patient seen, evaluated, history reviewed, and approved for sedation. Airway, heart, and lung exam satisfactory for sedation. Discussed risks, benefits, alternatives for procedure, and/or sedation. The roles and responsibilities of care team members, residents, and fellows were discussed. Patient understands information and questions answered. Informed consent obtained from the patient. Immediately prior to starting the procedure, in the presence of the assisting personnel, a procedural pause was conducted to verify correct patient identity and verification of procedure to be performed, and as applicable, correct side and site, correct patient position, availability of implants, special equipment, or special requirements, and all image and specimen identification data. INTRAPROCEDURE: Moderate sedation was administered by sedation nurse under my supervision. The patient was continuously monitored with real time oxygen saturation, heart rate, ECG rhythm strip and blood pressure throughout administration of the sedation and performance of the procedure. The total intra-procedural sedation time was: 22 minutes. TECHNIQUE: Sterile;1% lidocaine for local anesthesia and CT Guidance. A 17-gauge introducer needle was advanced into the presacral fluid collection. Seldinger technique was utilized to place a 10 Zimbabwean locking loop catheter into the fluid collection. Locking loop of the catheter was formed. ??40 cc of light brown turbid fluid was aspirated. Locking loop catheter was sutured to the skin with 2-0 Prolene. TARGET LOCATION: Presacral fluid collection. INTRODUCER NEEDLE: 17-gauge introducer needle. DRAIN TYPE/SIZE: 10 [place]an locking loop catheter VOLUME OF FLUID ASPIRATED: 40 cc APPEARANCE OF ASPIRATE: Light brown turbid fluid COMPLICATION: None ? BLOOD LOSS: None. PATIENT INSTRUCTIONS: Patient may be dismissed from the radiology department when dismissal criteria met. POST-PROCEDURE DIAGNOSIS: Presacral fluid collection. Procedure Note Pnada Masters M.D. - 05/10/2024 EXAM: CT ABDOMEN AND/OR PELVIS DRAIN PLACEMENT PRE-PROCEDURE: Patient seen, evaluated, history reviewed, and approved forsedation. Airway, heart, and lung exam satisfactory for sedation.Discussed risks, benefits, alternatives for procedure, and/or sedation.The roles and responsibilities of care team members, residents, and fellows were discussed. Patient understandsinformation and questions answered. Informed consent obtained from thepatient. Immediately prior to starting the procedure, in the presence ofthe assisting personnel, a procedural pause was conducted to verify correct patient identity and verificationof procedure to be performed, and as applicable, correct side and site,correct patient position, availability of implants, special equipment, orspecial requirements, and all image and specimen identification data. INTRAPROCEDURE: Moderate sedation was administered by sedation nurse undermy supervision. The patient was continuously monitored with real timeoxygen saturation, heart rate, ECG rhythm strip and blood pressurethroughout administration of the sedation and performance of the procedure. The total intra-procedural sedation timewas: 22 minutes. TECHNIQUE: Sterile;1% lidocaine for local anesthesia and CT Guidance. F44-dlmss introducer needle was advanced into the presacral fluidcollection. Seldinger technique was utilized to place a 10 Zimbabwean lockingloop catheter into the fluid collection. Locking loop of the catheter was formed. 40 cc of light brown turbidfluid was aspirated. Locking loop catheter was sutured to the skin with2-0 Prolene. TARGET LOCATION: Presacral fluid collection. INTRODUCER NEEDLE: 17-gauge introducer needle. DRAIN TYPE/SIZE: 10 Zimbabwean locking loop catheter VOLUME OF FLUID ASPIRATED: 40 cc APPEARANCE OF ASPIRATE: Light brown turbid fluid COMPLICATION: None BLOOD LOSS: None. PATIENT INSTRUCTIONS: Patient may be dismissed from the radiologydepartment when dismissal criteria met. POST-PROCEDURE DIAGNOSIS: Presacral fluid collection. IMPRESSION: 1. Placement of a 10 Zimbabwean locking loop catheter into the presacral fluidcollection. 2. Recommend flushing and aspirating the catheter with 10 ml of salinetwice daily. 3. Consider sinogram in interventional radiology in a few days forcatheter evaluation. EP Xi Hahn APRN C.N.P., M.S.N. I MG CT PROCEDURES * (ABNORMAL) Bacterial Culture, Aerobic + Susceptibility (05/10/2024 12:22 PM CDT) Bacterial Culture, Aerobic + Susc BACTEROIDES THETAIOTAOMICRO N/FAECIS Growth after 1 day (A) 05/17/2024 2:04 PM CDT DTL Fluid (Pelvis) 05/10/2024 12 :22 PM CDT Narrative [facility] - 05/17/2024 2:04 PM CDT Bacterial Culture: Received Bactec aerobic and Bactec anaerobic bottles Organism Antibiotic Method Susceptibility Bacteroides thetaiotaomicron/faeci s Clindamycin SUSCEPTIBILITY, ANTHONY (MCG/ML) 4 mcg/mL: Intermediate Bacteroides thetaiotaomicron/faeci s Ertapenem SUSCEPTIBILITY, ANTHONY (MCG/ML) <=4 mcg/mL: Susceptible Bacteroides thetaiotaomicron/faeci s Metronidazole SUSCEPTIBILITY, ANTHONY (MCG/ML) <=2 mcg/mL: Susceptible Bacteroides thetaiotaomicron/faeci s Piperacillin + Tazobactam SUSCEPTIBILITY, ANTHONY (MCG/ML) <=16/4 mcg/mL: Susceptible Xi Hahn APRN, C.N.P., M.S.N. L MICROBIOLOGY - GENERAL ORDERABLES Performing Organization Address City/[facility] Co de Phone Number [facility] [address] [place] [address] * Fungal Smear (05/10/2024 12:22 PM CDT) Fungal Smear Negative. 05/10/2024 11:14 PM CDT DTL Fluid (Pelvis) 05/10/2024 12 :22 PM CDT Narrative [facility] - 05/10/2024 11:14 PM CDT Bacterial Culture: Received Bactec aerobic and Bactec anaerobic bottles Uriel Whitehead APRNNNoe, M.S.N. L MICROBIOLOGY - GENERAL ORDERABLES Performing Organization Address [facility] de Phone Number [facility] [address] [place] [address] * (ABNORMAL) Gram Stain (05/10/2024 12:22 PM CDT) Gram Stain White blood cells, Many.(A) 05/10/2024 3:19 PM CDT DTL Gram Stain GRAM NEGATIVE BACILLUS Many. (A) 05/10/2024 3:19 PM CDT DTL Comment: Semi-Urgent Result. Additional Report Semi-Urgent This is a semi-urgent result(ROMERO) [facility] Fluid (Pelvis) 05/10/2024 12 :22 PM CDT Narrative [facility] - 05/10/2024 3:19 PM CDT Bacterial Culture: Received Bactec aerobic and Bactec anaerobic bottles Xi Hahn APRN, C.N.P., M.S.N. L AB MICROBIOLOGY - GENERAL ORDERABLES Performing Organization Address [facility] de Phone Number [facility] [address] [place] [address], [facility] DTL [facility] [address] [place] [address] * Prothrombin Time (PT) (05/09/2024 2:53 PM CDT) Only the most recent of5 resultswithin the time period is included. Pathologist [facility] Prothrombin Time, P 11.6 9.4 - 12.5 sec 05/09/2024 3:04 PM CDT [facility] INR 1.1 0.9 - 1.1 05/09/2024 3:04 PM CDT [facility] Comment: ----ADDITIONAL INFORMATION---- Standard intensity warfarin therapeutic range: 2.0 to 3.0 ?? High intensity warfarin therapeutic range: 2.5 to 3.5 Blood (Blood, Venous) 05/09/2024 2:53 PM CDT 05/09/2024 2:57 PM CDT Negar Stone P.A.-C., M.S. LAB BLOOD ADD-ON Performing Organization Address City/[facility] Co de Phone Number [facility] [address] [place] [address], [facility] STMA [facility] [address] [place] [address] * (ABNORMAL) CRP (C-Reactive Protein) (05/09/2024 2:53 PM CDT) Pathologist [facility] C-Reactive Protein (CRP), S 45.4(H) <5.0 mg/L 05/09/2024 3:41 PM CDT DTL Blood (Blood, Venous) 05/09/2024 2:53 PM CDT 05/09/2024 3:17 PM CDT Negar Stone P.A.-C. MSolitarioS. LAB BLOOD ADD-ON [facility] [address] [place] [address], [place] DTL [facility] [address] [place] [address] * CT Chest with IV Contrast (05/06/2024 9:17 AM CDT) Only the most recent of2 resultswithin the time period is included. Anatomical Region Laterality Modality Chest, Thoracic RST LOS, Tho racic ARZ LOS, Thoracic ARZ LOS, Thoracic FLA LOS N/A Computed Tomography, Compute d Tomography 05/06/2024 9:18 AM CDT Impressions 05/06/2024 10:57 AM CDT 1. ??Tiny nodules that were new on 03/21/2024 have resolved. 2. ??Additional tiny punctate micronodules in both lungs are unchanged. 3. ??No new evidence of metastatic disease in the chest. Narrative 05/06/2024 10:57 AM CDT EXAM: ??CT CHEST WITH IV CONTRAST COMPARISON: ??CT chest with IV contrast enhancement 03/21/2024. FINDINGS: ??A tiny punctate micronodule in the right upper lobe, and a left lower lobe nodule that were new on 03/21/2024, have resolved. A few tiny punctate micronodules in both lungs are unchanged (for instance, right upper lobe anteriorly 3/232 and left lower lobe laterally, 350). Calcified granulomas left lung with calcified left hilar and mediastinal lymph nodes. Right IJ Port-A-Cath with tip in RA. Multinodular thyroid gland, greater on the left. Stable island of sclerosis in the anterior left 3rd rib. This examination was performed in conjunction with a CT of the abdomen, which will be reported separately. Procedure Note Gil Davidson M.D. - 05/06/2024 EXAM: CT CHEST WITH IV CONTRAST COMPARISON: CT chest with IV contrast enhancement 03/21/2024. FINDINGS: A tiny punctate micronodule in the right upper lobe, and a leftlower lobe nodule that were new on 03/21/2024, have resolved. A few tiny punctate micronodules in both lungs are unchanged (forinstance, right upper lobe anteriorly 3/232 and left lower lobe laterally,350). Calcified granulomas left lung with calcified left hilar and mediastinallymph nodes. Right IJ Port-A-Cath with tip in RA. Multinodular thyroidgland, greater on the left. Stable island of sclerosis in the anteriorleft 3rd rib. This examination was performed in conjunction with a CT of the abdomen,which will be reported separately. IMPRESSION: 1. Tiny nodules that were new on 03/21/2024 have resolved. 2. Additional tiny punctate micronodules in both lungs are unchanged. 3. No new evidence of metastatic disease in the chest. Genesis Suresh P.A.-C. IMG CT PROCEDURES * [facility] - Sent Out Lab (05/02/2024 10:04 AM CDT) Only the most recent of2 resultswithin the time period is included. Test Name Signcyndeea 05/02/2024 1:24 PM CDT [facility] Result SEE COMMENT 05/17/2024 9:42 AM CDT [facility] Comment: For final report, select Lab-Send Out Lab Results hyperlink below. 05/02/2024 10:0 4 AM CDT 05/02/2024 1:24 PM CDT Mariluz Soler M.D. LAB [facility] [employer] [employer] [address] [place] [address], [place] [facility] [employer] [address] [place] [address] * NM Hepatic Pump Evaluation SPECT CT (04/05/2024 12:39 PM CDT) Anatomical Region Laterality Modality Body, Nuclear Medicine RST L OS, Nuclear Medicine ARZ LOS, Nuclear Medicine FLA LOS, Nuclear Medicine N/A Nuclear Med icine Impressions 04/05/2024 1:51 PM CDT Normal bilobar distribution of tracer. No extrahepatic tracer. Catheter tip position could be better assessed with a contrast-enhanced study. Narrative 04/05/2024 1:51 PM CDT EXAM: ??NM HEPATIC PUMP EVALUATION SPECT CT RADIOPHARMACEUTICAL/MEDS: Route: intra-arterial technetium Tc 99m albumin aggregated injection (Tc-99m MAA),5.44 millicurie TECHNIQUE: ??SPECT with low dose, non-contrast, free-breathing CT for attenuation correction and anatomic localization of the abdomen obtained within 4 hours after radiotracer injection into the hepatic artery infusion pump. COMPARISON: ??CT abdomen pelvis 03/21/2024 INDICATION: ??Assessment of biodistribution of first pass infusion through implanted hepatic artery catheter for chemotherapy treatment planning. FINDINGS: Pump/Catheter: The implanted catheter is fully visualized and radiotracer cleared from the catheter with no evidence of obstruction in the catheter. Small amount of residual tracer at the tip of the catheter. Catheter courses more medially than expected at the tip, though this may be related to distortion and anatomy between preoperative study and this exam. Liver: Expected biodistribution to tumors within both lobes of the liver. Off-target/Extrahepatic perfusion activity: None. Radiotracer Leakage: No findings concerning for leakage around the implanted hepatic artery catheter. Procedure Note Jeremy Kilgore M.D. - 04/05/2024 EXAM: NM HEPATIC PUMP EVALUATION SPECT CT RADIOPHARMACEUTICAL/MEDS: Route: intra-arterial technetium Tc 99m albumin aggregated injection (Tc-99m MAA),5.44millicurie TECHNIQUE: SPECT with low dose, non-contrast, free-breathing CT forattenuation correction and anatomic localization of the abdomen obtainedwithin 4 hours after radiotracer injection into the hepatic arteryinfusion pump. COMPARISON: CT abdomen pelvis 03/21/2024 INDICATION: Assessment of biodistribution of first pass infusion throughimplanted hepatic artery catheter for chemotherapy treatment planning. FINDINGS: Pump/Catheter: The implanted catheter is fully visualized and radiotracercleared from the catheter with no evidence of obstruction in the catheter.Small amount of residual tracer at the tip of the catheter. Cathetercourses more medially than expected at the tip, though this may be related to distortion and anatomy betweenpreoperative study and this exam. Liver: Expected biodistribution to tumors within both lobes of theliver. Off-target/Extrahepatic perfusion activity: None. Radiotracer Leakage: No findings concerning for leakage around theimplanted hepatic artery catheter. IMPRESSION: Normal bilobar distribution of tracer. No extrahepatic tracer. Cathetertip position could be better assessed with a contrast-enhanced study. Madhav Umana D.O..BSolitarioASolitario [facility] AHSLY SOLIS * Perform central journeyman lineman: De-access port (04/03/2024 9:56 AM CDT) Narrative Matt Cardona R.N. - 04/03/2024 9:56 AM CDT Matt Cardona R.N. ? 04/03/2024 ??9:58 AM Perform central journeyman lineman: De-access port Performed by: Matt Cardona R.N. Authorized by: Doris Sainz M.B.BSolitarioSSolitario ?? Doris KennedyS. PRO CEDURE/MINOR SURGICAL ORDERABLES * (ABNORMAL) CBC without Differential (04/02/2024 8:36 PM CDT) Only the most recent of6 resultswithin the time period is included. Hemoglobin 11.3(L) 13.2 - 16.6 g/dL 04/02/2024 8:52 PM CDT DTL Hematocrit 33.7(L) 38.3 - 48.6 % 04/02/2024 8:52 PM CDT DTL Erythrocytes 3.76(L) 4.35 - 5.65 x10(12)/L 04/02/2024 8:52 PM CDT DTL MCV 89.6 78.2 - 97.9 fL 04/02/2024 8:52 PM CDT DTL RBC Distrib Width 12.4 11.8 - 14.5 % 04/02/2024 8:52 PM CDT DTL Platelet Count 138 135 - 317 x10(9)/L 04/02/2024 8:52 PM CDT DTL Leukocytes 3.3(L) 3.4 - 9.6 x10(9)/L 04/02/2024 8:52 PM CDT DTL Blood (Blood, Venous) 04/02/2024 8:36 PM CDT 04/02/2024 8:45 PM CDT Genesis Suresh P.A.-C. LAB BLOOD ADD-ON Performing Organization Address City/[facility] Co de Phone Number [facility] [address] [place] [address] * Phosphorus Inorganic (04/02/2024 8:36 PM CDT) Only the most recent of4 resultswithin the time period is included. Phosphorus (Inorganic), S 3.9 2.5 - 4.5 mg/dL 04/02/2024 9:16 PM CDT DTL Blood (Blood, Venous) 04/02/2024 8:36 PM CDT 04/02/2024 9:02 PM CDT Genesis Suresh P.A.-C. LAB BLOOD ADD-ON Performing Organization Address [facility] Co de Phone Number [facility] [address] [place] [address] * Magnesium (04/02/2024 3:49 AM CDT) Only the most recent of3 resultswithin the time period is included. Magnesium, S 2.0 1.7 - 2.3 mg/dL 04/02/2024 5:10 AM CDT DTL Blood (Blood, Venous) 04/02/2024 3:49 AM CDT 04/02/2024 4:53 AM CDT Fiona Metzger APRN, C.N.P., M.S.N. LAB BLOOD ADD-ON [facility] [address] [place] [address], [place] DTL [facility] [address] [place] [address] * US Guidance Intraoperative (03/29/2024 2:09 PM CDT) Anatomical Region Laterality Modality Body, Ultrasound RST LOS, Ul trasound ARZ LOS, Ultrasound FLA LOS N/A Ultrasound Impressions 03/29/2024 2:13 PM CDT Dedicated sonographic evaluation of the liver was performed with Drs. Viera and Ken. ??Four subcentimeter liver metastases were identified sonographically. ??First, a 75 W ablation for 1.5 minutes was performed for a lesion adjacent to the middle hepatic vein. ??Thereafter a 75 W ablation for 1.5 minutes was performed for a lesion in the peripheral right liver. ??A third lesion adjacent to a superior branch of the RHV was treated at 60 W for 1.5 minutes. ??A final lesion was seen on the OR US machine and treated for 1 minute at 60 W. Narrative 03/29/2024 2:13 PM CDT EXAM: US GUIDANCE INTRAOPERATIVE COMPARISON: MRI 01/20/[address] 03/21/2024 Procedure Note Gerard Cifuentes M.D. - 03/29/2024 EXAM: US GUIDANCE INTRAOPERATIVE COMPARISON: MRI 01/20/[address] 03/21/2024 IMPRESSION: Dedicated sonographic evaluation of the liver was performed with Seth and Ken. Four subcentimeter liver metastases were identifiedsonographically. First, a 75 W ablation for 1.5 minutes was performed fora lesion adjacent to the middle hepatic vein. Thereafter a 75 W ablation for 1.5 minutes wasperformed for a lesion in the peripheral right liver. A third lesionadjacent to a superior branch of the RHV was treated at 60 W for 1.5minutes. A final lesion was seen on the OR US machine and treated for 1 minute at 60 W. Panda Masters M.D. [facility] US PROCEDURES * Patient Status (03/29/2024 1:28 PM CDT) Only the most recent of2 resultswithin the time period is included. Temperature 35.6 37.0 deg C 03/29/2024 1:28 PM CDT STMA FIO2 0.38 0.21=AIR 03/29/2024 1:28 PM CDT STMA Blood 03/29/2024 1:28 PM CDT 03/29/2024 1:28 PM CDT Sp Jonas M.D. LAB BLOOD NON ADD-O N Performing Organization Address City/[facility]/ZIP Co de Phone Number [facility] [address] [place] [address], [facility] [address] [place] [address] * (ABNORMAL) Lactate, B - Intra-op (03/29/2024 1:28 PM CDT) Only the most recent of2 resultswithin the time period is included. Lactate, B 2.4(H) 0.5 - 2.2 mmol/L 03/29/2024 1:30 PM CDT [facility] Blood (Blood, Venous) 03/29/2024 1:28 PM CDT 03/29/2024 1:28 PM CDT Soniya Conroy M.D. LAB BLOOD NON ADD-ON [facility] [address] [place] [address], [facility] [address] [place] [address] * Sodium, B (03/29/2024 1:28 PM CDT) Only the most recent of2 resultswithin the time period is included. Sodium, B 138 135 - 145 mmol/L 03/29/2024 1:30 PM CDT STMA Blood (Blood, Arterial Line) 03/29/2024 1:28 PM CDT 03/29/2024 1:28 PM CDT Soniya Conroy M.D. LAB BLOOD NON ADD-ON [facility] [address] [place] [address], [facility] STMA [facility] [address] [place] [address] * (ABNORMAL) Blood Gas with Coox, Arterial (03/29/2024 1:28 PM CDT) Only the most recent of2 resultswithin the time period is included. pO2 171(H) 83 - 108 mm Hg 03/29/2024 1:30 PM CDT STMA pCO2 38 35 - 48 mm Hg 03/29/2024 1:30 PM CDT STMA pH 7.36 7.35 - 7.45 pH 03/29/2024 1:30 PM CDT STMA Base Excess -4(L) -2 - 3 mmol/L 03/29/2024 1:30 PM CDT STMA HCO3 22 22 - 26 mmol/L 03/29/2024 1:30 PM CDT STMA Hemoglobin, B 14.1 13.2 - 16.6 g/dL 03/29/2024 1:30 PM CDT STMA O2Hb 97.3 94.0 - 98.0 % 03/29/2024 1:30 PM CDT STMA COHb 1.7 <3.0 % 03/29/2024 1:30 PM CDT STMA MetHb <1.0 <1.5 % 03/29/2024 1:30 PM CDT STMA CtO2 19.7 18.0 - 21.0 vol % 03/29/2024 1:30 PM CDT STMA Blood (Blood, Arterial Line) 03/29/2024 1:28 PM CDT 03/29/2024 1:28 PM CDT Soniya Conroy M.D. LAB BLOOD NON ADD-ON [facility] [address] [place], [place] [address] [address] [place] [address] * Potassium, Blood (03/29/2024 1:28 PM CDT) Only the most recent of2 resultswithin the time period is included. Potassium, B 4.2 3.6 - 5.2 mmol/L 03/29/2024 1:30 PM CDT STMA Blood (Blood, Arterial Line) 03/29/2024 1:28 PM CDT 03/29/2024 1:28 PM CDT Soniya Conroy M.D. LAB BLOOD NON ADD-ON [facility] [address] [place], [place] [address] [address] [place] [address] * Glucose, Whole Blood (03/29/2024 1:28 PM CDT) Only the most recent of2 resultswithin the time period is included. Glucose 127 70 - 140 mg/dL 03/29/2024 1:30 PM CDT [facility] Blood (Blood, Arterial Line) 03/29/2024 1:28 PM CDT 03/29/2024 1:28 PM CDT Soniya Conroy M.D. LAB BLOOD ADD-ON [facility] [address] [place] [address], [facility] [address] [place] [address] * Calcium, Ionized (03/29/2024 1:28 PM CDT) Only the most recent of2 resultswithin the time period is included. Calcium, Ionized, B 4.69 4.65 - 5.30 mg/dL 03/29/2024 1:30 PM CDT [facility] Blood (Blood, Arterial Line) 03/29/2024 1:28 PM CDT 03/29/2024 1:28 PM CDT Soniya Conroy M.D. LAB BLOOD NON ADD-ON [facility] [address] [place] [address], [facility] [address] [place] [address] * Surgical Pathology, Frozen Lab (03/29/2024 10:18 AM CDT) 03/31/2024 5:12 PM CDT STMA Participated in the Interpretation Porsche Holbrook M.D.-Pathology Fellow 03/31/2024 5:12 PM CDT [facility] Report electronically signed by Mera Song M.D., Ph.D. I verify that I have examined all relevant slides/materials for the specimen(s) and rendered or confirmed the diagnosis. 03/31/2024 5:12 PM CDT STMA Frozen Intraoperative Report A. ??Soft tissue, portion of left seminal vesicle, excision: Negative for tumor. B. 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 The resection margins are negative for tumor. ??Closest margin is 1.2 cm to radial. ??Tumor is 6.5 cm to the distal margin. ??A perirectal tumor deposit is identified. E. ??Liver, portion caudate, wedge resection: ??Involved by adenocarcinoma. ??Surgical margins are negative for tumor. F. ??Liver, segment NELLY, wedge resection: ??Involved by adenocarcinoma. ??Surgical margins are negative for tumor. G. ??Liver, segment VII, wedge resection: ??involved by adenocarcinoma. ??Surgical margins are negative for tumor. I. ??Lymph node, portocaval, biopsy: ??A single (1) lymph node is negative for tumor. J. ??Liver, segment VII No. 2, wedge resection: ??Hyalinized nodule, negative for tumor, favor calcified granuloma. Frozen section histologic interpretation of parts E - J performed by Diego Fairbanks M.D. Signed by Mera Song M.D., Ph.D. 03/30/2024 9:42 AM 03/31/2024 5:12 PM CDT [facility] Gross Description A. ??Received fresh labeled portion of left seminal vesicle is a 1.2 x 0.8 x 0.3 cm portion of holden-pink tissue. ??All submitted for frozen and permanent sections. Grossed by Eugenia Solorzano M.D., Ph.D. -Pathology Resident. B. ??Received fresh labeled rectum and sigmoid colon is a low anterior resection specimen consisting of a 37.5 cm in length portion of rectosigmoid colon. ??The mesorectum is complete. ??The radial margin is inked black. ??A 3.8 x 2.5 x 1.7 cm ulcerative, ill-defined tumor bed is present within the rectum, straddling the anterior peritoneal reflection, 6.5 cm from the distal mucosal margin, and 0.5 cm from the anterior radial margin, submitted perpendicularly. ??The tumor bed contains a viable mass. ??Grossly, the tumor bed extends into the pericolonic fat and the serosa, which is inked green. ??Multiple diverticula are identified. Additionally, there is a 1.2 cm and 0.7 cm tumor deposit within the mesentery, adjacent to the mass. ??Multiple lymph nodes are identified within the perirectal fat. ??After clinical evaluation, residual tissue is procured for IRB No. [id number]. ??Photographed. ??Orthotics Technician tissue submitted for frozen and permanent sections. ??Grossed by Cadence Hoang M.S., NOEL([facility]). C. ??Received fresh labeled colon anastomotic rings are two (2) annular portions of bowel mucosa, each 1.7 cm in diameter, ranging from 0.9 to 1 cm in length. ??All submitted for permanent sections. ??Grossed by Brianna Martinez M.S., PA([facility]). D. ??Received fresh labeled gallbladder is a 9.8 x 3.6 x 1.6 cm gallbladder with a 0.3 cm maximum wall thickness, and patent cystic duct. ??A cystic duct lymph node is not identified. ??No stones are present within the lumen. ??No masses are identified. ??Orthotics Technician tissue submitted for permanent sections. ??Grossed by Brianna Martinez M.S., PA([facility]). E. ??Received fresh labeled portion of caudate liver is an 8.5 gram, 5.4 x 2.4 x 1.6 cm liver wedge specimen. ??A single 1.1 x 0.8 x 0.7 cm yellow mass is present, 0.3 cm from the inked surgical margin. ??Margin is submitted perpendicularly. ??Orthotics Technician tissue submitted for permanent sections. ??Grossed by Jaja Alejandre, P.A. ([facility]). F. ??Received fresh labeled liver segment NELLY is a 4.1 x 3.4 x 1.6 cm liver wedge specimen. ??A single 1.5 x 1 x 0.9 cm yellow mass is present, 0.5 cm from the inked surgical margin. ??Margin is submitted perpendicularly. Orthotics Technician tissue submitted for frozen and permanent sections. ??Grossed by Jaja Alejandre, P.A. ([facility]). G. ??Received fresh labeled liver segment VII is a 14.3 gram, 5.1 x 3.4 x 1.6 cm liver wedge specimen. ??A single 1 x 1 x 0.8 cm yellow mass is present, 0.4 cm from the inked surgical margin. ??Margin is submitted perpendicularly. Orthotics Technician tissue submitted for permanent sections. Grossed by Jaja Alejandre, P.A. ([facility]). H. ??Received fresh labeled hepatic artery lymph nodes is a 1.6 x 0.8 x 0.8 cm lymph node. ??Lymph nodes submitted for permanent sections. ??Grossed by Jaja Alejandre, P.A. ([facility]). I. ??Received fresh labeled portocaval lymph node is a 1.8 x 1 x 0.8 cm lymph node. ??Lymph nodes submitted for frozen and permanent sections. ??Grossed by Jaja Alejandre, P.A. ([facility]). J. ??Received fresh labeled segment 7 liver wedge No. 2 is a 0.40 gram, 1.8 x 1.2 x 0.3 cm liver wedge specimen. ??A single 0.2 x 0.2 x 0.2 cm holden-white mass is present, 0.1 cm from the inked surgical margin. ??Margin is submitted perpendicularly. ??Orthotics Technician tissue submitted for frozen and permanent sections. ??All of the nodule was submitted. ??Grossed by Eugenia Solorzano M.D., Ph.D. -Pathology Resident. 03/31/2024 5:12 PM CDT STMA Block Summary A Portion of left seminal vesicle A1 Portion of left seminal vesicle - frozen B Rectum and sigmoid colon B1 Anterior radial margin 1-frozen B2 Anterior radial margin 2-frozen B3 Mass to serosa 1-frozen B4 Mass to serosa 2-frozen B5 Mass B6 Mass-frozen B7 Tumor deposit to posterior radial margin 1 B8 Mass to posterior radial margin 1-frozen B9 Mass 2 B10 Mass 2 - frozen B11 Anterior radial margin 3-frozen B12 Regional lymph nodes 1(B1) B13 Regional lymph nodes 4(B2) B14 Regional lymph nodes 1(B3) B15 Regional lymph nodes 1(B4) B16 Regional lymph nodes 4(B5) B17 Regional lymph nodes 1(B6) B18 Regional lymph nodes 2(B7) B19 Regional lymph nodes 3(B8) B20 Regional lymph nodes 1(B9) B21 Regional lymph nodes 4(B10) B22 Regional lymph nodes 3(B11) B23 Regional lymph nodes 4(B12) B24 Regional lymph nodes 3(B13) B25 Regional lymph nodes 3(B14) B26 Regional lymph nodes 2(B15) B27 Regional lymph nodes 4(B16) B28 Regional lymph nodes 3(B17) B29 Regional lymph nodes 2(B18) B30 Regional lymph nodes 4(B19) B31 Regional lymph nodes 4(B20) B32 Regional lymph nodes 1(B21) B33 Regional lymph nodes 1(B22) B34 Regional lymph nodes 4(B23) B35 Regional lymph nodes 3(B24) B36 Regional lymph nodes 3(B25) B37 Regional lymph nodes 4(B26) B38 Regional lymph nodes 1(B27) B39 Regional lymph nodes 3(A28) C Colon anastomotic rings C1 Anastomotic rings 1 C2 Anastomotic rings 2 D Gallbladder D1 Gallbladder E Portion of caudate liver E1 Mass 1 -frozen E2 Mass 2 E3 Mass 2 -frozen F Liver segment 4a F1 Mass F2 Mass - frozen G Liver segment 7 G1 Mass -frozen H Hepatic artery lymph nodes H1 Hepatic artery lymph node 1 (H1) I Portacaval lymph node I1 Portacaval lymph node 1 of 2 (I1) - Frozen I2 Portacaval lymph node 2 of 2 (I1) - Frozen J Segment 7 liver wedge #2 J1 Segment 7 liver wedge #2 J2 Segment 7 liver wedge #2 - Frozen 03/31/2024 5:12 PM CDT STMA Addendum Signatera has been requested by Dr. Mariluz Soler and will be performed on block B12 at [place], [place] Signed by Timothy Cordoba M.D. 04/19/2024 5:20 PM 04/19/2024 5:20 PM CDT STMA Comment:REVISED RESULTS Interpretation FINAL DIAGNOSIS A. ??Portion of seminal vesicle, left, excision: ??Negative for tumor. B. ??Rectum and sigmoid colon, low anterior resection: Residual moderately differentiated invasive adenocarcinoma within a 3.8 cm tumor bed, located in the rectum straddling the peritoneal reflection. ??The tumor extends into the perirectal adipose tissue and invades anterior serosa. ??The surgical resection margins are negative for tumor. Multiple (5) perirectal tumor deposits are identified. Multiple (3 of 54) lymph nodes are positive for metastatic carcinoma. ??See synoptic report. C. ??Soft tissue, colon anastomotic rings, excision: Segment of colon without diagnostic abnormality; negative for tumor. D. ??Gallbladder, cholecystectomy: ??Chronic cholecystitis and cholesterolosis; negative for tumor. E. ??Liver, portion caudate, wedge resection: ??Involved by metastatic adenocarcinoma (1.1 x 0.8 x 0.7 cm). ??Surgical margins are negative for tumor. F. ??Liver, segment NELLY, wedge resection: ??Involved by metastatic colorectal adenocarcinoma (1.5 x 1 x 0.9 cm). Surgical margins are negative for tumor. G. ??Liver, segment VII, wedge resection: ??Involved by metastatic colorectal adenocarcinoma (1.0 x 1 x 0.8 cm). Surgical margins are negative for tumor. H. ??Lymph nodes, hepatic artery, biopsy: ??A single (1) lymph node negative for metastatic carcinoma. I. ??Lymph node, portocaval, biopsy: ??A single (1) lymph node negative for metastatic carcinoma. J. ??Liver, segment VII No. 2, wedge resection: ??Hyalinized granuloma; negative for tumor. ??See comment. Comment: ??Special stains for AFB and GMS are negative for acid-fast organisms and fungal elements, respectively (Block J2). SYNOPTIC REPORT: Colorectal Invasive Carcinoma Procedure: Low anterior resection Macroscopic Evaluation of Mesorectum: Complete Tumor Site: Rectum, straddles anterior peritoneal reflection Histologic Type: Adenocarcinoma Histologic Grade: G2 Tumor Size: 3.8 cm Multiple Primary Sites: Not applicable Tumor Extent: Invades visceral peritoneum Sub-mucosal Invasion (pT1 tumors): Not applicable Macroscopic Tumor Perforation: Not identified Lymphatic and / or Vascular Invasion: ??Present, extramural and intramural large venous and small vessel Perineural Invasion: Present Tumor Budding: ??Not applicable ?Number of Tumor Buds in 1 hotspot field: ??Not applicable ?Tumor [place] Score: ??Not applicable Treatment Effect: Present, with residual cancer showing evident tumor regression, but more than single cells or rare small groups of cancer cells (partial response, score 2) Margin Status All Margins Negative for Invasive Carcinoma ?? Closest Margin(s) to Invasive Carcinoma: Radial ?? Distance from Invasive Carcinoma to Closest Margin: 1.2 cm ?? Distance from Invasive Carcinoma to Radial (Circumferential) Margin: Distance already reported as closest margin ?? Distance from Invasive Carcinoma to Distal Margin: 6.5 cm Margin Status for Non-Invasive Tumor: All margins negative for high-grade dysplasia Regional Lymph Nodes Status Tumor Present in Regional Lymph Node(s) ?? Number of Lymph Nodes with Tumor: 3 ?? Number of Lymph Nodes Examined: 54 Tumor Deposits: Present, 5 Distant Metastasis. ??Distant Site(s) Involved: Liver Pathologic Staging (AJCC, 8th edition) Modified Classification: y (posttreatment) pT Category: pT4 T Suffix: Not applicable pN Category: pN1b pM Category: pM1a Additional Pathologic Findings: None identified Best Tumor Block for Ancillary Testing: ??Block B4 (DNA mismatch repair status previously reported) The synoptic report incorporates information from all relevant surgical material and includes all required data elements of the current CAP Cancer Protocol. 04/19/2024 5:20 PM CDT STMA Tissue (Abdomen) 03/29/2024 10:18 AM CDT Tissue (Abdomen) 03/29/2024 10:48 AM CDT Tissue (Colon) 03/29/2024 11 :35 AM CDT Tissue (Gallbladder) 03/29/2024 12:44 PM CDT Tissue (Liver) 03/29/2024 1: 01 PM CDT Tissue (Liver) 03/29/2024 1: 06 PM CDT Tissue (Liver) 03/29/2024 1: 11 PM CDT Tissue (Abdomen) 03/29/2024 2:09 PM CDT Tissue (Abdomen) 03/29/2024 2:39 PM CDT Tissue (Liver) 03/29/2024 3: 07 PM CDT Diego Umana D.O.BSuzette LAB SURG PATH ORDERABLES Performing Organization Address City/State/[facility] Co de Phone Number [facility] [address] [place] [address] * ND ARTL CATH/CNULA MONITOR PERC, LDA ANE ARTERIAL LINE INSERTION (03/29/2024 9:04 AM CDT) Narrative Soniya Conroy M.D. - 03/29/2024 9:04 AM CDT Sp Jonas M.D. ? 03/29/2024 ??9:04 AM Invasive Catheter Date/Time: 03/29/2024 9:04 AM Performed by: Sp Jonas M.D. Authorized by: Soniya Conroy M.D. ?? Location: OR PROCEDURE DETAILS: Line type: arterial ?? Laterality: right Location: radial Location details: new site ? Age group: adult Catheter diameter: 20 Ga Technique: ultrasound guided ?? Ultrasound guidance: image not saved Monitored: yes ?? Number of attempts: 1 UNIVERSAL PROTOCOL All relevant documentation and testing were reviewed and available. All required blood products, implants, devices and or special equipment were made available as applicable. Pre-procedure verification was conducted and the correct site was marked if required. A fire risk assessment was done as applicable. The procedural time-out to verify correct patient, correct side/site, and procedure was conducted prior to performing the procedure and confirmed in a procedural pause. PRE-PROCEDURE DETAILS: Appropriate hand hygiene, gown, cap, mask, protective eyewear, sterile gloves, skin preparation, sterile drape, and strict aseptic technique were utilized as applicable for the procedure.: yes ?? Skin preparation: chlorhexidine ?? SEDATION / ANESTHESIA Anesthesia method: anesthesia POST-PROCEDURE DETAILS: Procedure completed successfully: yes ?? Line secured: secured with sutureless device Chlorhexidine disc around insertion site and under catheter with slight turn: yes ?? Notable Events - arterial: none ATTESTATION STATEMENT A resident or fellow participated in the procedure, and the business operations consultant was present for the entire procedure. Soniya Conroy M.D. PROCEDURE/MINOR SURG ICAL ORDERABLES * Airway (03/29/2024 8:08 AM CDT) Narrative Sp Jonas M.D. - 03/29/2024 8:08 AM CDT Sp Jonas M.D. ? 03/29/2024 ??9:05 AM Airway Date/Time: 03/29/2024 8:08 AM Performed by: Jacques Cuevas M.D. Authorized by: Soniya Conroy M.D. ?? Patient location during procedure: OR / Procedure Area PROCEDURE DETAILS: Mask difficulty assessment: easy mask Final airway type: video laryngoscope Laryngeal Manipulation: no ?? Final best view of glottic structures - Cormack/Lehane Score: grade 1 ETT location: oral VL device: glide scope [place] scope blade size: 4 Tube size: 7.5 ETT distance at teeth/gum: 23 Oral tube type: standard ETT Cuffed: yes Number of attempt to successful placement: 1 Airway confirmation: bilateral breath sounds, positive ETCO2 and bilateral chest rise Other previous techniques attempted: none PRE PROCEDURE DETAILS: Pre evaluation for airway management: procedure Urgency: elective Preop assessment of probable difficulty: no difficulty anticipated Preoxygenation: bag valve mask SEDATION / ANESTHESIA Anesthesia method: anesthesia POST PROCEDURE DETAILS: ? Procedure outcome: successful ?? Notable Events: no complications Soniya Conroy M.D. ANESTHESIA ORDERABLE S * ND INJ SPINE LUMB/SAC WO IMG (03/29/2024 7:59 AM CDT) Narrative Soniya Conroy M.D. - 03/29/2024 7:59 AM CDT Sp Jonas M.D. ? 03/29/2024 ??9:06 AM Regional Block Date/Time: 03/29/2024 7:59 AM Performed by: Jacques Cuevas M.D. Authorized by: Soniya Conroy M.D. ?? Location: OR PROCEDURE DETAILS: Block Indication: post-op pain block ?? Block indication comment: Post-Op pain block at request of surgeon Block Type - Neuraxial: spinal Positioning: sitting ?? Approach: midline Level inserted: L4-5 Block technique: landmark technique ?? Injection technique: single injection Needle type: pencan Gauge: 24G CSF: yes ??Pain with needle advancement or injection of local anesthetic: no ?? Injected Medications: Injection(s), anesthetic agent(s) and/or steroid; See [facility] UNIVERSAL PROTOCOL All relevant documentation and testing were reviewed and available. All required blood products, implants, devices and or special equipment were made available as applicable. Pre-procedure verification was conducted and the correct site was marked if required. A fire risk assessment was done as applicable. The procedural time-out to verify correct patient, correct side/site, and procedure was conducted prior to performing the procedure and confirmed in a procedural pause. PRE-PROCEDURE DETAILS: ?? Appropriate hand hygiene, gown, cap, mask, protective eyewear, sterile gloves, skin preparation, sterile drape, and strict aseptic technique were utilized as applicable for the procedure.: yes ?? Skin prep: chlorhexidine / alcohol SEDATION / ANESTHESIA Anesthesia method: local infiltration and moderate sedation Local infiltrate type: lidocaine I completed the presedation assessment form and supervised the sedation. Planned sedation level achieved: yes ?? Present during sedation (intra-service time). A trained independent observer (e.g. RN) assisted with monitoring the patient's level of consciousness and physiological status throughout the procedure (see nursing documentation). POST-PROCEDURE DETAILS: Procedure completed successfully: successful procedure Notable Events: none ATTESTATION STATEMENT A resident or fellow participated in the procedure, and the business operations consultant was present for the entire procedure. Soniya Conroy M.D. PROCEDURE/MINOR SURG ICAL ORDERABLES * Specimen-Pathology Image Exam (03/29/2024 12:00 AM CDT) Narrative [facility] - 03/29/2024 11:03 AM CDT This order has been created and auto-finalized to support the import of images acquired without order. The clinical documentation to support these images can be found on the encounter that produced images. Provider Not In System IMG NON RAD IMAGI NG PROCEDURES [facility] NA * Aria Course Complete Treatment Information (03/28/2024 2:26 PM CDT) Only the most recent of2 resultswithin the time period is included. Course ID 1xRectum RODRIGUEZ ARIA Course Start Date 4 11:28 CDT RODRIGUEZ ARIA Course End Date 4 08:38 CDT RODRIGUEZ ARIA First Treatment Date 4 15:36 CDT RODRIGUEZ ARIA Last Treatment Date 4 14:26 CDT RODRIGUEZ ARIA Treatment Elapsed Days 5 RODRIGUEZ ARIA Reference Point [id number] RODRIGUEZ ARIA Dosage Given to Date cGy 2500 RODRIGUEZ ARIA Plan ID [id number] RODRIGUEZ ARIA Fractions Treated to Date 5 RODRIGUEZ ARIA Planned Total Fractions 5 RODRIGUEZ ARIA Prescribed Dose Per Fraction 500 RODRIGUEZ ARIA Prescription Dose in cGy 2500 RODRIGUEZ ARIA Plan Primary Reference Point [id number] RODRIGUEZ ARIA 03/28/2024 2:26 PM CDT Provider Not In System RADIATION ONCOLOG Y ORDERABLES RODRIGUEZ PEBBLESA na * Aria Daily Treatment Information (03/28/2024 2:26 PM CDT) Only the most recent of5 resultswithin the time period is included. Course ID 1xRectum RODRIGUEZ ARIA Course Start Date 4 11:28 CDT RODRIGUEZ ARIA First Treatment Date 4 15:36 CDT RODRIGUEZ ARIA Last Treatment Date 4 14:26 CDT RODRIGUEZ ARIA Treatment Elapsed Days 5 RODRIGUEZ ARIA Reference Point [id number] RODRIGUEZ ARIA Dosage Given to Date cGy 2500 RODRIGUEZ ARIA Session Dosage Given 500 RODRIGUEZ ARIA Plan ID [id number] RODRIGUEZ ARIA Fractions Treated to Date 5 RODRIGUEZ ARIA Planned Total Fractions 5 RODRIGUEZ ARIA Prescribed Dose Per Fraction 500 RODRIGUEZ ARIA Prescription Dose in cGy 2500 RODRIGUEZ ARIA Plan Primary Reference Point [id number] RODRIGUEZ ARIA 03/28/2024 2:26 PM CDT Provider Not In System RADIATION ONCOLOG Y ORDERABLES MICHAEL RODRIGUEZ na * Initial Rad Onc Treatment Planning CT Simulation (03/22/2024 3:30 PM CDT) Narrative [facility] - 03/22/2024 3:30 PM CDT Caitlin Smalls, RTT ? 03/22/2024 ??3:44 PM Initial Rad Onc Treatment Planning CT Simulation Performed by: Santosh Washington M.D. Authorized by: Santosh Washington M.D. ?? Santosh Washington M.D. RADIATION ONCOLOG Y ORDERABLES Performing Organization Address City/[facility] Co de Phone Number MICHAEL RODRIGUEZ na * Type and Screen (with Reflex Antibody ID) (03/21/2024 8:57 AM CDT) ABORh A Pos Not applicable 03/21/2024 5:17 PM CDT ETRM Antibody Screen Negative Negative 03/21/2024 5:32 PM CDT ETRM Type & Screen Expiration 05/19/2024 23:59 03/21/2024 5:17 PM CDT ETRM Testing Location Mi DEFAULT 03/21/2024 11:42 AM CDT ETRM Blood (Blood, Venous) 03/21/2024 8:57 AM CDT 03/21/2024 11:42 AM CDT Chris Viera D.O., M.B.A. LAB BLOO D BANK TEST ORDERABLES Performing Organization Address City/[facility] Co de Phone Number [facility] [address] [place] [address], [facility] ETRM [facility] [address] [place] [address] * CEA (Carcinoembryonic Antigen) (03/21/2024 8:57 AM CDT) Carcinoembryonic Ag (CEA), S 1.3 ng/mL 03/21/2024 4:[address] [facility] Comment: ----REFERENCE VALUE---- <=3.0 (Non-smokers) Some smokers may have elevated CEA, usually <5.0. ----ADDITIONAL INFORMATION---- The testing method is an immunoenzymatic assay manufactured by [employer]. and performed on the [employer] 800. ? Values obtained with different assay methods or kits may be different and cannot be used interchangeably. ? Test results cannot be interpreted as absolute evidence for the presence or absence of malignant disease. Blood (Blood, Venous) 03/21/2024 8:57 AM CDT 03/21/2024 2:56 PM CDT Chris Viera D.O., M.B.A. LAB BLOO D ADD-ON Performing Organization Address City/[facility] Co de Phone Number [facility] [address] [place] [address] [facility] [address] [place] [address] * Surgical Pathology (03/16/2024 2:17 PM CDT) 03/17/2024 2:07 PM CDT DTL Report electronically signed by Pat Olson M.D., Ph.D. I verify that I have examined all relevant slides/materi als for the specimen(s) and rendered or confirmed the diagnosis. 03/17/2024 2:07 PM CDT DTL Gross Description A: Received in formalin labeled with the patient's name, medical record number, and colon-biopsy , rectosigmoid are seven pale holden-pinkirreg ular soft tissues, ranging from 0.2-0.4 cm in greatest dimension. ??Specimens are submitted en toto in cassette A1. ??Grossed by [facility]. B: Received in formalin labeled with the patient's name, medical record number, and colon-polyp, descending colon are six pale holden-pinkirreg ular soft tissues, ranging from 0.2-0.6 cm in greatest dimension. ??Specimens are submitted en toto in cassette B1. ??Grossed by [facility]. 03/17/2024 2:07 PM CDT DTL Interpretation FINAL DIAGNOSIS A. Colon, Recto-sigmoid , endoscopic biopsy: Colonic mucosa with focal prolapse change. No dysplasia. B. Colon, Descending, endoscopic biopsy: Tubular adenoma, low grade dysplasia. Digital imaging was used in the diagnostic assessment of this case. 03/17/2024 2:07 PM CDT DTL Biopsy (Colon) 03/16/2024 2: 17 PM CDT Polyp (Colon) 03/16/2024 2:2 4 PM CDT Refugio Wong M.D. LAB SURG PATH ORDER DEENA [facility] [address] [place] [address], [facility] DTL [address] [place] [address] * Colonoscopy-Gastroenterology Image Exam (03/16/2024 1:55 PM CDT) 03/16/2024 1:51 PM CDT Narrative [facility] - 03/16/2024 2:56 PM CDT This order has been created and auto-finalized to support the import of images acquired without order. The clinical documentation to support these images can be found on the encounter that produced images. Provider Not In System IMG NON RAD IMAGI NG PROCEDURES Performing Organization Address City/[facility]/ZIP Co de Phone Number [facility] NA * Colonoscopy (03/16/2024 1:51 PM CDT) 03/16/2024 1:51 PM CDT [facility]/16/[facility]24 2:48 PM CDT Post-op Diagnoses: ? - Partially obstructing tumor in the recto-sigmoid colon. This appears ? to have significantly improved compared to pre-chemotherapy endoscopy ? reports. Mass was circumferential but able to be traversed without need ? for dilation with the standard adult colonoscope. Biopsied. ? - One 5 mm polyp in the transverse colon, removed with a cold snare. ? Resected and retrieved. ? - The examination was otherwise normal on direct and retroflexion views. Narrative [facility] - 03/16/2024 2:48 PM CDT Esteban 6 GI GI Patient Name: Heriberto Snowden Date of : 1980 Age: 43 Procedure Date: 03/16/2024 Procedure: ? Colonoscopy Providers: ? Mason Wong MD Referring Provider: ?Patsy Bowser Pre-op Diagnoses: ?High risk colon cancer surveillance: Personal ? history of colon cancer Recommendation: ? - PATHOLOGY/MICROBIOLOGY FOLLOW-UP: The ordering provider is responsible ? for reviewing results from specimens obtained during this endoscopic ? procedure and communicating the findings to the patient. If guidance is ? needed for interpreting endoscopic findings or pathology results, please ? consider a gastroenterology e-consult. ? - Repeat colonoscopy 1 year after resection for surveillance. Findings: ? The perianal and digital rectal examinations were normal. ? A partially obstructing mass was found in the recto-sigmoid colon. The ? mass was circumferential. The mass measured five cm in length. No ? bleeding was present. This was biopsied with a cold forceps for ? histology. Verification of patient identification for the specimen was ? done using the patient's name and date. Estimated blood loss was ? minimal. ? A 5 mm polyp was found in the transverse colon. The polyp was Opal ? classification Is (protruding, sessile). The polyp was removed with a ? cold snare. Resection and retrieval were complete. Verification of ? patient identification for the specimen was done using the patient's ? name and date. Estimated blood loss was minimal. ? Retroflexion in the right colon was performed. ? The exam was otherwise without abnormality on direct and retroflexion ? views. Procedural Details: ? The patient was seen, evaluated, history reviewed, airway and heart-lung ? exams were performed by licensed provider and were satisfactory for ? planned level of sedation care. ? The risks, benefits and alternatives for the procedure and sedation were ? discussed and informed consent was obtained. A procedural pause was ? conducted in the presence of assisting personnel to verify the correct ? patient identity and procedure to be performed. Throughout the ? procedure, the patient's blood pressure, pulse, and oxygen saturations ? were monitored continuously. The Colonoscope was introduced under direct ? vision through the anus and advanced to the cecum, identified by ? appendiceal orifice and ileocecal valve. The colonoscopy was performed ? without difficulty. The patient tolerated the procedure well. The ? quality of the bowel preparation was evaluated using the BBPS ([place] ? Bowel Preparation Scale) with scores of: Right Colon = 3, Transverse ? Colon = 3 and Left Colon = 3 (entire mucosa seen well with no residual ? staining, small fragments of stool or opaque liquid). The total BBPS ? score equals 9. Estimated Blood Loss: ?Estimated blood loss was minimal. Complications: ? No immediate complications. Sedation: ? Anesthesia was administered by an anesthesia professional. The following ? parameters were monitored: oxygen saturation, heart rate, blood ? pressure, respiratory rate, EKG, adequacy of pulmonary ventilation, and ? response to care. Attending Participation: I personally performed the entire procedure. Mason Wong MD 03/16/2024 2:48:30 PM This report has been signed electronically. Number of Addenda: 0 Patsy Bowser APRN, C.N.P., M.S. GI PROCEDURE ORDERABLES MICHAEL WRIGHT NA from Last 3 Months Additional Health Concerns Infection Onset Date Last Indicated Protective Environment 04/26/2024 Advance Directives For more information, please contact: [phone] * Full Code (Latest Code Status on File) Date Activated Date Inactivated Comments 05/12/2024 11:11 PM 05/15/2024 3:41 PM Question Answer Comments Full Code: Not Discussed Due to: Patient not available * Full Code Date Activated Date Inactivated Comments 03/29/2024 7:46 PM 04/03/2024 3:32 PM Question Answer Comments Full Code: Discussed * Full Code Date Activated Date Inactivated Comments 03/29/2024 6:51 AM 03/29/2024 7:46 PM Question Answer Comments Full Code: Discussed Care Teams Rim Roller Setter Relationship Specialty Start Date End Date Kayla Rowland APRN, C.N.P. [address] [place] [id number] PCP - General 03/04/24 Roger Sorensen Therapist 02/14/20
--- OUTSIDE RECORDS SUMMARY | 2024-05-25 | XMS_ITS | Referral Summary ---
Author Organization [facility] Address [address] [place] [id number] Care Team Providers Care Burr Bench Hand Name Role Phone Manuel Hoffman MD Primary Care Provider [phone] Allergies No known active allergies Medications Medication [...] 03/07/2022 9:31 PM CDT Plan of Treatment Not on file Medical Devices Implanted Type Area Civil Draftsman Device Identifier Shelf Expiration Date Model / Serial / Lot Embolization Coil-07/22/2019 Implanted:Qty: 1 on 07/22/2019 by Aston Granger MD Embolization Coil / / [id number] Embolization Coil-07/22/2019 Implanted:Qty: 1 on 07/22/2019 by Aston Granger MD Embolization Coil / / [id number] Procedures Procedure Name Priority Date/Time Associated Diagnosis Comments COMPREHENSIVE METABOLIC PANEL Routine 03/08/2022 5:49 AM CDT LIPID PROFILE Routine 03/08/2022 5:49 AM CDT from Last 3 Months or Most Recently Relevant to Health Maintenance Results * (ABNORMAL) Lipid panel (03/08/2022 5:49 AM CDT) Cholesterol 193 <200 mg/dL 03/08/2022 7:05 AM [...] equal to 220 mg/dL Meg Walker APRN [facility] - BLO OD ORDERABLES UR [facility] Acute [facility] Lab [address] [facility] [place] [address], [facility] [phone] * Comprehensive metabolic panel (03/08/2022 5:49 AM [...] and gender (Kaykay et al., NEJM, DOI: 10.1056/[id number]) Blood STRUCTURE OF RIGHT UPPER LIMB / Unknown Venipuncture / Unknown 03/08/2022 5:49 AM CDT 03/08/2022 6:37 AM CDT Meg Walker APRN [facility] - BLO OD ORDERABLES UR [facility] Acute Care Lab [address] [facility] [place] [address], [facility] [phone] from Last 3 Months or Most Recently Relevant to Health Maintenance Advance Directives For more information, please contact: [phone] * Full Code (Latest Code Status on [...] with patie nt/legal decision maker Care Teams Burr Bench Hand Relationship Specialty Start Date End Date Manuel Hoffman MD [facility] [address] [place] [address] PCP - General Family Practice 07/22/19
--- OUTSIDE RECORDS SUMMARY | 2024-05-25 00:01 | XMS_ITS | Referral Summary ---
Author Organization [facility] Address [address] [place] [id number] Care Team Providers Care Hat Checker Name Role Phone Kayla Rowland APRN, C.N.P. Primary Care Provide r Source Comments Patient records contain information from all sites at [facility]. For routine questions regarding patient records, call [phone] during business hours, M-F 8:00 AM - 5:00 PM Central Time. Record requests for emergency care only can be directed to [phone] at any time.[facility] Encounters Date Type Department Care Team Description 05/24/2024 Clinical Communication Department of Oncology in [place], [place] [address] [place] [address] Pedro Mahoney M.D., Pharm.D. 05/23/2024 Orders Only Division of Colon and Rectal Surgery in [place], [place] [address] [place] [phone] Yg Zamarripa, R.N. 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 05/20/2024 2:00 PM CDT Office Visit Division of Colon and Rectal Surgery in [place], [place] [address] [place] [phone] Armida Bullock APRN, C.NMarco., M.S.N. 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 Jason Silveira M.D. Gonzalez, Austin J, M.D. Malignant Neoplasm Of Rectum (HCC); Secondary Malignant Neoplasm Liver (HCC); Abdominal Pain Discharge Disposition: Home or Self Care 05/19/2024 Refill Department of Oncology in [place], [place] [address] [place] [phone] Patsy Bowser APRN, C.N.P., M.S. Med Refill 05/18/2024 Orders Only Division of Colon and Rectal Surgery in [place], [place] [address] [place] [phone] Jeremy Ventura APRN, C.N.P., M.S. 05/17/2024 Clinical Communication Division of Colon and Rectal Surgery in [place], [place] [address] [place] [phone] Janell Chino M.A.N., R.N. 05/17/2024 Orders Only Division of Colon and Rectal Surgery in [place], [place] [address] [place] [phone] Janell Chino M.A.N., R.N. Malignant Neoplasm Of Rectum (HCC) (Primary Dx); Secondary Malignant Neoplasm Liver (HCC); Abdominal Pain 05/12/2024 3:23 PM CDT - 05/15/2024 1:36 PM CDT Hospital Encounter [facility], [facility], [facility], Fifth Floor [address] [place] [phone] Patsy Zhou M.D. Baker, Sebastian P, APRN C.N.P. Radha Barrera M.D. Perry, William R, M.B., Ch.B., M.P.H. Pain Postoperative (Primary Dx); Abdominal Pain Discharge Disposition: Home or Self Care 05/13/2024 Orders Only Department of Urology in [place], [place] [address] [place] [phone] Anny Mcneill M.D. Retention Urinary (Primary Dx) 05/12/2024 Orders Only Division of Colon and Rectal Surgery in [place], [place] [address] [place] [phone] Basia Colorado APRN C.N.P., M.S.N. Abdominal Pain (Primary Dx) 05/12/2024 Clinical Communication Division of Colon and Rectal Surgery in [place], [place] [address] [place] [phone] Tej Quintanilla M.B., Ch.B., M.P.H. Post Op Sinogram Follow Up 05/11/2024 2:00 PM CDT Infusion Department of Oncology in [place], [place] [address] [place] [address] Patsy Bowser APRN, C.NMarco., M.S. 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 Tej Quintanilla M.B., Ch.B., M.P.H. Other Intra Abdominal And Pelvic Swelling Mass And Lump (Primary Dx) Discharge Disposition: Home or Self Care 05/10/2024 Clinical Communication Department of Oncology in [place], [place] [address] [place] [phone] Patsy Bowser APRN, C.N.P., M.S. 05/10/2024 Orders Only Department of Oncology in [place], [place] [address] [place] [phone] Patsy Bowser APRN, C.N.P., M.S. 05/06/2024 9:30 AM CDT Clinical Support Division of Colon and Rectal Surgery in [place], [place] [address] [place] [phone] Armida Bullock APRN, C.N.P., M.S.N. Tanya Herman R.N., C.W.O.C.N. Ileostomy Status (HCC) 05/06/2024 10:30 AM CDT Office Visit Division of Hepatobiliary and Pancreas Surgery in [place], [place] [address] [place] [address] Joann Rausch APRN C.N.P., M.S.N. Malignant Neoplasm Of Rectum (HCC) (Primary Dx); Secondary Malignant Neoplasm Liver (HCC); Follow Up Examination Postoperative Visit; Ileostomy Status (HCC) 05/06/2024 8:04 AM CDT - 05/06/2024 11:59 PM CDT Hospital Encounter Department of Radiology, [facility], in [address] [phone] Genesis Suresh P.A.-C. 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 Ileostomy Status (HCC) (Primary Dx); Follow Up Examination Postoperative Visit 05/04/2024 Refill Department of Oncology in [address] [phone] Rena Mccray R.N., O.C.N. Med Refill 05/04/2024 Clinical Communication Department of Oncology in [address] [phone] Rena Mccray R.N., O.C.N. Forms ([employer]) 05/03/2024 12:15 PM CDT Clinical Communication Virtual Review in [place], [place] [address] [place] [address] Pre-visit Intake 05/02/2024 Orders Only Department of Oncology in [address] [phone] Rena Mccray R.N., O.C.N. 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 Gloria Rapp R.N., SHAYY Ileostomy Status (HCC) 04/26/2024 Orders Only Department of Oncology in [address] [phone] Rena Mccray R.N., O.C.N. 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 Jacobson, Alison C, R.N., O.C.N. 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 Ileostomy Status (HCC) (Primary Dx) 04/19/2024 Refill Department of Oncology in [place], [place] [address] [place] [phone] Rena Mccray R.N., O.C.N. Med Refill 04/16/2024 Clinical Communication Division of Hepatobiliary and Pancreas Surgery in [place], [place] [address] [place] [address] Amari You M.D. 04/14/2024 Orders Only Department of Oncology in [place], [place] [address] [place] [phone] Mariluz Soler M.D. 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 04/13/2024 Orders Only Department of Oncology in [place], [place] [address] [place] [phone] Rena Mccray R.N., O.C.NSolitario Malignant Neoplasm Of Rectum (HCC) (Primary Dx) 04/13/2024 Clinical Communication Division of Hepatobiliary and Pancreas Surgery in [place], [place] [address] [place] [phone] Wilfredo Cast M.D. 04/12/2024 Clinical Communication Division of Hepatobiliary and Pancreas Surgery in [place], [place] [address] [place] [phone] Chris Viera D.O., M.B.A. 04/12/2024 3:00 PM CDT Clinical Support Division of Colon and Rectal Surgery in [place], [place] [address] [place] [address] Genesis Suresh P.A.-C. 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 04/05/2024 10:30 AM CDT - 04/05/2024 11:59 PM CDT Hospital Encounter Department of Radiology, [facility] in [place], [place] [address] [place] [phone] Chris Viera D.O., M.B.A. 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 Refill of catheters 04/04/2024 Clinical Communication Division of Colon and Rectal Surgery in [place], [place] [address] [place] [phone] Tej Quintanilla M.B., Ch.B., M.P.H. 03/29/2024 6:00 AM CDT - 04/03/2024 1:22 PM CDT Hospital Encounter [facility], [facility], Fifth Floor [address] [place] [phone] Chris Viera D.O., M.B.A. 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 03/29/2024 7:50 AM CDT Anesthesia Event [facility] OR [address] [place] [phone] Soniya Conroy M.D. Stephenson, Anthony A, M.D. 03/29/2024 10:00 AM CDT - 03/29/2024 11:59 PM CDT Hospital Encounter Department of Radiology, [facility] in [address] [address] Panda Masters M.D. Secondary Malignant Neoplasm Liver (HCC) Discharge Disposition: Home or Self Care 03/29/2024 7:25 AM CDT - 03/29/2024 5:11 PM CDT Surgery [facility] OR [address] [place] [phone] Chris Viera D.O., M.B.A. HEPATIC ARTERY INFUSION PUMP PLACEMENT. 03/28/2024 2:11 PM CDT - 03/28/2024 11:59 PM CDT Hospital Encounter Department of Radiation Oncology in [address] [phone] Santosh Washington M.D. Discharge Disposition: Home or Self Care 03/26/2024 8:00 AM CDT - 03/26/2024 11:59 PM CDT Hospital Encounter Department of Radiation Oncology in [address] [phone] Santosh Washington M.D. Discharge Disposition: Home or Self Care 03/25/2024 1:15 PM CDT - 03/25/2024 1:31 PM CDT Hospital Encounter Department of Radiation Oncology in [address] [phone] Bren Vega P.A.-C., M.S. 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 Discharge Disposition: Home or Self Care 03/24/2024 Orders Only Division of Colon and Rectal Surgery in [address] [phone] Janell Chino M.A.N., R.N. 03/24/2024 3:30 PM CDT Clinical Support Division of Colon and Rectal Surgery in [place], [place] [address] [place] [phone] Tej Quintanilla M.B., Ch.B., M.P.H. Phyllis Payne RBillie., C.W.O.C.N. Malignant Neoplasm Of Rectum (HCC) 03/24/2024 4:29 PM CDT - 03/24/2024 11:59 PM CDT Hospital Encounter Department of Radiation Oncology in [place], [place] [address] [place] [phone] Santosh Washington M.D. Discharge Disposition: Home or Self Care 03/23/2024 1:58 PM CDT - 03/23/2024 2:22 PM CDT Hospital Encounter Department of Radiation Oncology in [place], [place] [address] [place] [phone] Santosh Washington M.D. Malignant Neoplasm Of Rectum (HCC) 03/23/2024 2:23 PM CDT - 03/23/2024 11:59 PM CDT Hospital Encounter Department of Radiation Oncology in [place], [place] [address] [place] [phone] Santosh Washington M.D. Discharge Disposition: Home or Self Care 03/23/2024 7:20 AM CDT Telemedicine Department of Oncology in [place], [place] [address] [place] [phone] Patsy Bowser APRN CSolitarioN.P., M.S. 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 03/22/2024 11:00 AM CDT - 03/22/2024 2:42 PM CDT Hospital Encounter Department of Radiation Oncology in [place], [place] [address] [place] [phone] Santosh Washington M.D. 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 Munson, Kasey N, R.N. 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 Malignant Neoplasm Of Rectum (HCC) 03/22/2024 Orders Only Department of Radiation Oncology in [place], [place] [address] [place] [phone] Bren Vega P.A.-C., M.S. Malignant Neoplasm Of Rectum (HCC) (Primary Dx) 03/22/2024 10:00 AM CDT Comprehensive Visit Division of Colon and Rectal Surgery in [place], [place] [address] [place] [phone] Tej Quintanilla M.B., Ch.B., M.P.H. 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 Kathi Anderson APRN, C.N.P. 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 03/17/2024 3:15 PM CDT Clinical Communication Virtual Review in [address] [phone] Pre-visit Intake 03/16/2024 Orders Only Department of Oncology in [address] [phone] Patsy Bowser APRN, C.N.Jarod, M.S. 03/16/2024 1:55 PM CDT Ancillary Procedure Department of Gastroenterology 03/16/2024 1:57 PM CDT Anesthesia Event Division of Gastroenterology in [address] [phone] Kayla Cartwright APRN, CRNA, AUTUMN 03/16/2024 12:54 PM CDT - 03/16/2024 3:19 PM CDT Hospital Encounter Division of Gastroenterology in [address] [phone] Patsy Bowser APRN, C.N.P., M.S. 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 90 tablet 11 03/13/20 22 Active triamcinolone (KENALOG) 0.1 % creamIndications :Psoriasis Apply to affected area 1-2 times daily as needed. 60 g 06/01/20 Active Additional Information Patient taking differently: 4 times daily PRN, irritation, rash, psoriasis, Apply to affected area four times daily as needed for psoriasis, Informant: Self, Reported on 03/29/2024 fluocinonide (LIDEX) 0.05 % external solution 1 Application 2 (two) times a day as needed for irritation, itching or rash (psoriasis). Apply to the scalp up to twice daily as needed for flares. 09/23/20 Active tacrolimus (PROTOPIC) 0.1 % ointment Apply 1 Application topically 2 (two) times a day as needed (psoriasis). 09/23/20 Active medical cannabis oil inhalation Inhale as needed (nauesa and anxiety). THC component: 30 mg Patient does not need while in the hospital Active amLODIPine (NORVASC) 5 mg tablet TAKE 1 TABLET (5 MG TOTAL) BY MOUTH DAILY. 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 Flush IV line AFTER 0.9% Sodium Chloride flush 04/03/20 Active ibuprofen (ADVIL,MOTRIN) 200 mg tablet Take 3 tablets (600 mg total) by mouth every 6 (six) hours as needed for pain for up to 5 days. 04/03/20 Active prochlorperazine (COMPAZINE) 5 mg tablet Take 1 tablet (5 mg total) by mouth every 6 (six) hours as needed for nausea or vomiting. 8 tablet 06/16/20 24 Active heparin 100 unit/mL syringeIndicatio ns:Malignant [...] vomiting (unrelieved by prochlorperazine ). 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 May take dose early if needed. 30 tablet 3 04/26/20 24 025 Active dexAMETHasone (Decadron) 4 mg tabletIndication [...] mouth daily before morning meal. 90 capsule 3 04/26/20 24 025 Active sildenafiL (Viagra) 50 [...] for 7 days. 14 tablet 05/20/20 24 024 Active lamoTRIgine ER (LaMICtaL XR) 50 mg 24 hr tabletIndication s:Depression Major Recurrent Severe Without Psychotic Features (HCC) Take 4 tablets (200 mg total) by mouth daily. 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 Flush IV line AFTER 0.9% Sodium Chloride flush 04/03/20 24 024 Discontinued(Th erapy completed) LORazepam (ATIVAN) 0.5 mg tablet Take 1 tablet (0.5 mg total) by mouth 3 (three) times a day as needed (prn nausea). Take Caution in combination use with Narcotic pain meds. Can cause excessive sedation 04/03/20 24 024 Discontinued oxyCODONE (ROXICODONE) 5 mg immediate [...] Indications: Lower UTI, Non-Catheter. 13 capsule 05/15/20 24 024 Active Problems Problem Noted Date Diagnosed [...] 03/12/2022 Overview (07/12/2017): Depression Major Recurrent Mild Immunizations Name Administration Dates Next Due DTaP (Infanrix, Tripedia) 01/18/1988,06/1985,08/12/1983,1982,04/10/1983 HepA Adult 02/18/2016,11/26/2015 HepB, Unspecified 02/18/2016,11/26/2015 Influenza (IM) Preservative Free 07/22/2018 Influenza, Injectable, Mdck, Quadrivalent 07/11/2021 Influenza, Injectable, Quadrivalent 07/16/2020,1 MMR 05/31/1996,04/08/1984 OPV 01/18/1988, 5,08/12/1983,1982,03/20/1983 Tdap 07/24/2021,01/28/2010 YF 03/19/2016 typhoid vaccine, parenteral (discontinued) 11/26/2015 Social History Tobacco Use Types Packs/Day Years Used Date Smoking Tobacco: Former Cigarettes 1 - 08/18/2015 Smokeless Tobacco: Never Tobacco Cessation:Counseling Given: Not Answered Alcohol Use Standard Drinks/Week Comments Not Currently 0 (1 standard drink = 0.6 oz pur e alcohol) [facility] [employer] Answer Date Recorded In the past 12 months has [facility] [employer], gas, oil, or water [employer] threatened to shut off services in your [...] 12/06/2021 How often do you attend chur ch or episcopal services? Never 12/06/2021 Do you belong to any clubs o r organizations such as hindu groups, unions, fraternal or athletic groups, or [...] Answer Date Recorded PHQ-2 Score 0 04/06/2024 [facility] - Occupational Stress Questionnaire Answer Date Recorded [...] your living situation today? I have a [facility] place to live 05/12/2024 Education Answer Date Recorded What is the highest level of school you have completed or the highest degree you have received? 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 [address] [place] [phone] 06/07/2024 9:20 AM CDT Lab Department of Infusion Therapy in [place], [place] [address] [place] [phone] Mariluz Soler M.D. [address] [place] [phone] 06/07/2024 11:20 AM CDT Office Visit Department of Oncology in [place], [place] [address] [place] [phone] Mariluz Soler M.D. [address] [place] [phone] 06/07/2024 1:00 PM CDT Infusion Department of Oncology in [place], [place] [address] [place] [phone] Mariluz Soler M.D. [address] [place] [phone] 06/17/2024 8:30 AM CDT Appointment Department of Laboratory Medicine and Pathology, [facility], in [place], [place] [address] [place] [phone] Anny Mcneill M.D. [address] [place] [phone] 06/17/2024 9:00 AM CDT Lab Department of Infusion Therapy in [place], [place] [address] [place] [phone] Anny Mcneill M.D. [address] [place] [phone] 06/17/2024 10:45 AM CDT Procedure visit Department of Urology in [place], [place] [address] [place] [phone] Anny Mcneill M.D. [address] [place] [phone] 06/17/2024 1:45 PM CDT Comprehensive Visit Department of Urology in [place], [place] [address] [place] [phone] Ayesha Romero, PSolitarioASolitario-Tasia. [address] [place] [phone] 06/17/2024 4:15 PM CDT Comprehensive Visit Department of Urology in [place], [place] [address] [place] [phone] Scotty Tom, JAD, C.N.P. [address] [place] [phone] Goals Goal Patient Goal Type Associated Problems Recent Progress Patient-Stated? Author Eat a balanced, healthy diet Diet Worsening( 11:49 AM CDT) Yes Swanton, Nadia Boone R.N. Note: 02/14/20 - Has one regular meal daily (supper), otherwise not as hungry and snacks on fruit in AM, chips in evening. Will readdress his dietary goals and see if this makes a difference in his mood. Read Managing My Depression General Improving( 11:43 AM CDT) Yes Swanton, Nadia Boone R.N. Note: P. 46-48 Create a relapse prevention plan. Spend time with my dog again. General On track( 020 11:43 AM CDT) Yes Swanton, Nadia Boone R.N. Have some time to himself regularly. General On track( 11:47 AM CDT) Yes Swanton, Nadia Boone R.N. Note: 01/24/20 - More structure to his day. 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 Recognizing he needs more personal time. Meet with therapist regularly General On track( 11:43 AM CDT) Yes Swanton, Nadia Boone R.N. Note: Dr. Pavan Sorensen, with [employer] in [place], [place]. Take your medication every day Lifestyle On track( 11:49 AM CDT) No Swanton, Nadia Boone R.N. Note: Increased Wellbutrin to 300 mg daily 02/09/20. PHQ-9 Total Score (max 27) < 5 Symptom Management 3(04/06/2024 7:51 PM CDT) No Swanton, Nadia Boone R.N. Note: Enrollment PHQ9=18 on 08/16/19 Patient goals at enrollment: 1. I'd like to have my depression be less intense. 2. I'd like to learn some coping strategies. 3. I'd like to learn how to keep my depression from flaring back again Medical Devices Implanted Type Area Wheel Assembler Device Identifier Shelf Expiration Date Model / Serial / Lot Clp Hrzn Ti 24 Andre Hughes Mihai - [id number] Implanted:Qt y: 1 on 03/29/2024 by Chris Viera D.O., M.B.A. at [facility] Hardware e.g. pins/screws/ro ds N/A: Abdomen [employer] [id number] / / Clp Hrzn Ti 24 Andre Hughes Mihai - [id number] Implanted:Qt y: 1 on 03/29/2024 by Chris Viera D.O., M.B.A. at [facility] Hardware e.g. pins/screws/ro ds N/A: Abdomen [employer] [id number] / / Clp Hrzn Ti 6 Clp Orng - [id number] Implanted:Qt y: 1 on 03/29/2024 by Chris Viera D.O., M.B.A. at [facility] Hardware e.g. pins/screws/ro ds N/A: Abdomen [employer] [id number] / / Clp Hrzn Ti 6 Clp Lg Orng - [id number] Implanted:Qt y: 1 on 03/29/2024 by Chris Viera D.O., M.B.A. at [facility] Hardware e.g. pins/screws/ro ds N/A: Abdomen [employer] [id number] / / Prt Cath Infus Mri Intrmd 8f - [id number] Implanted:Qt y: 1 on 09/22/2023 by Dave Butcher M.D. 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 at [facility] Int. 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) MISCELLANEOUS [facility]ARC[facility]-SENT OUT LAB Routine 05/02/2024 10:04 [...] Secondary Malignant Neoplasm Liver (HCC) PERFORM CENTRAL PAN PUSHER Routine 04/03/2024 9:56 AM CDT COMPREHENSIVE METABOLIC [...] LINE INSERTION Routine 03/29/2024 9:04 AM CDT TN ARTL CATH/CNULA MONITOR PERC Routine 03/29/2024 9:04 AM CDT AIRWAY MANAGEMENT Routine 03/29/2024 8:0 8 AM CDT TN INJ SPINE LUMB/SAC WO IMG Routine 03/29/2024 7:59 AM CDT SIGMOIDOSCOPY FLEXIBLE 4 7:30 AM CDT Malignant Neoplasm Of Rectum (HCC) Secondary Malignant Neoplasm Liver (HCC) CONSTRUCTION ILEOSTOMY 4 7:30 AM CDT Malignant Neoplasm Of Rectum [...] AM CDT 05/23/2024 9:53 AM CDT Patsy Bowser APRN C.N.P., M.S. LA B BLOOD ADD-ON [facility] [address] [place] [address], [facility] [address] [place] [address] * (ABNORMAL) CBC with Differential, Blood (05/23/2024 9:21 AM CDT) Only the most recent of6 resultswithin the time period is included. [facility] Hemoglobin 13.5 13.2 - 16.6 g/dL 05/23/2024 [...] - 6.45 x10(9)/L 05/23/2024 10:35 AM CDT [facility] Lymphocytes 1.06 0.95 - 3.07 x10(9)/L 05/23/2024 10:35 AM CDT DTL Monocytes 0.64 0.26 - 0.81 x10(9)/L 05/23/2024 10:35 AM CDT DTL Eosinophils 0.13 0.03 - 0.48 x10(9)/L 05/23/2024 10:35 AM CDT DTL Basophils 0.06 0.01 - 0.08 x10(9)/L 05/23/2024 10:35 AM CDT DTL Blood (Blood, Venous) 05/23/2024 9:21 AM CDT 05/23/2024 9:39 AM CDT Patsy Bowser APRN C.N.P., M.S. LA B BLOOD ADD-ON [facility] [address] [place] [address], [facility] [address] [place] [address] [facility] 200 [place] [address] * Bilirubin, Direct (05/23/2024 9:21 AM CDT) Only the most recent of3 resultswithin the time period is included. Pathologist [facility] Bilirubin, Direct, S <0.2 0.0 - 0.3 mg/dL 05/23/2024 10:14 AM CDT DTL Blood (Blood, Venous) 05/23/2024 9:21 AM CDT 05/23/2024 9:53 AM CDT Patsy Bowser APRN C.N.P., M.S. LA B BLOOD ADD-ON [facility] 200 [place] [address], [facility] 200 [place] [address] * (ABNORMAL) Comprehensive Metabolic Panel (05/23/2024 9:21 AM CDT) Only the most recent of4 resultswithin the time period is included. Pathologist [facility] Potassium, S 4.4 3.6 - 5.2 mmol/L [...] Paula APRN.N.P., M.S. LA B BLOOD ADD-ON [facility] 200 [place] [address], [facility] 200 [place] [address] * IR Abscess Drain Check (05/20/2024 8:08 [...] placed in the right lateral decubitus position. Rug Backing Stenciler image showed a pigtail catheter projecting over [...] was placed in the right lateral decubitus position.Rug Backing Stenciler image showed a pigtail catheter projecting over [...] in approximately 7-10 days. EP Tej Lee, Ch.B., M.P.H. IMG IR PROCEDURES * (ABNORMAL) Dipstick, Urine (05/13/2024 [...] LAB URINE OR DERABLES Performing Organization Address City/[facility] Co de Phone Number [facility] 200 [place] [address], [facility] 200 [place] [address] * (ABNORMAL) Microscopic Automated (05/13/2024 8:08 PM CDT) Pathologist [facility] Microscopy Abnormal 05/13/2024 8:26 PM CDT DTL RBC 3-10(A) <3 /hpf 05/13/2024 8:26 PM CDT DTL Dysmorphic RBC <25 <25 % 05/13/2024 8:26 PM CDT DTL WBC 31-40(A) /hpf 05/13/2024 8:26 PM CDT DTL Comment: ----REFERENCE VALUE---- <4 ??(Males) <11 (Females) Urine 05/13/2024 8:08 PM CDT 05/13/2024 8:16 PM CDT Ravi Covarrubias M.D., Ph.D. LAB URINE OR DERABLES [facility] [address] [place] [address], [facility] [address] [place] [address] * (ABNORMAL) Bacterial Culture, Aerobic + Susceptibility, Urine (05/13/2024 8:08 PM CDT) Urine Culture STAPHYLOCOCCUS EPIDERMIDIS >100,000 cfu/mL (A) [...] Ph.D. LAB MICROBIO LOGY - GENERAL ORDERABLES [facility] [address] [place] [address], [place] [facility] [address] [place] [address] * pH, Urine (05/13/2024 8:08 PM CDT) Pathologist [facility] pH, U 5.8 4.5 - 8.0 05/13/2024 8:3 1 PM CDT DTL Urine 05/13/2024 8:08 PM CDT 05/13/2024 8:16 PM CDT Ravi Covarrubias M.D., Ph.D. LAB URINE OR DERABLES Performing Organization Address City/[facility] Co de Phone Number [facility] 200 [place] [address], [facility] 200 [place] [address] * Osmolality, Urine (05/13/2024 8:08 PM CDT) Osmolality, U 729 150 - 1150 mOsm/kg 05/13/2024 8:31 PM CDT DTL Urine 05/13/2024 8:08 PM CDT 05/13/2024 8:16 PM CDT Ravi Covarrubias M.D., Ph.D. LAB URINE OR DERABLES Performing Organization Address City/[facility] de Phone Number [facility] 200 [place] [address], [facility] 200 [place] [address] * Urinalysis, with Microscopic: Urine, Straight Catheter [...] Covarrubias M.D., Ph.D. LAB URINE OR DERABLES [facility] [address] [place] [address], [place] DTL [facility] [address] [place] [address] * CT Abdomen Pelvis with IV Contrast [...] with pigtail drainage catheter. Mode Corbett P.A.-C. IM CT PROCEDURES * (ABNORMAL) Hepatic Function Panel [...] CDT Mode Corbett P.A.-C. LAB BLOOD ADD-ON Performing Organization Address City/[facility]/ZIP Co de Phone Number [facility] [address] [place] [address] * Lactate (05/12/2024 3:46 PM CDT) Only the most recent of2 resultswithin the time period is included. Pathologist [facility] Lactate, P 1.0 0.5 - 2.2 mmol/L 05/12/2024 4:13 PM CDT ST[facility] Blood (Blood, Venous) 05/12/2024 3:46 PM CDT 05/12/2024 3:55 PM CDT Mode Corbett P.A.-C. LAB BLOOD NON ADD -ON Performing Organization Address [facility] Co de Phone Number [facility] 200 [place] [address], [facility] STMA [facility] 200 [place] [address] * Basic Metabolic Panel (05/12/2024 3:46 PM CDT) Only the most recent of7 resultswithin the time period is included. Potassium, P 4.5 3.6 - 5.2 mmol/L [...] CDT Mode Corbett P.A.-C. LAB BLOOD ADD-ON Performing Organization Address City/[facility]/ZIP Co de Phone Number [facility] [address] [place] [address], [facility] STMA [facility] 200 [place] [address] * Lipase (05/12/2024 3:40 PM CDT) Only the most recent of2 resultswithin the time period is included. Lipase, S 35 13 - 60 U/L 05/12/2024 6: 57 PM CDT DTL Blood (Blood, Venous) 05/12/2024 3:40 PM CDT 05/12/2024 6:39 PM CDT Patsy Zhou M.D. LAB BLOOD ADD-ON [facility] [address] [place] [address], [address] [address] * CT Abdomen and/or Pelvis Drain Placement (05/10/2024 12:56 PM CDT) Anatomical Region Laterality Modality Abdominal RST LOS, Procedura l, Vascular Interventional ARZ LOS, Procedure FLA LOS, Procedural NWWI LOS N/A Computed Tomography, Compute d Tomography Impressions 05/10/2024 2:02 PM CDT 1. Placement of a 10 Eritrean locking loop catheter into the presacral fluid [...] technique was utilized to place a 10 Eritrean locking loop catheter into the fluid collection. Locking loop of the catheter was formed. ??40 cc of light brown turbid fluid was aspirated. Locking loop catheter was sutured to the skin with 2-0 Prolene. TARGET LOCATION: Presacral fluid collection. INTRODUCER NEEDLE: 17-gauge introducer needle. DRAIN TYPE/SIZE: 10 Eritrean locking loop catheter VOLUME OF FLUID ASPIRATED: 40 cc APPEARANCE OF ASPIRATE: Light brown turbid fluid COMPLICATION: None ? BLOOD LOSS: None. PATIENT INSTRUCTIONS: Patient may be dismissed from the radiology department when dismissal criteria met. POST-PROCEDURE DIAGNOSIS: Presacral fluid collection. Procedure Note Panda Masters M.D. - 05/10/2024 EXAM: CT ABDOMEN [...] lidocaine for local anesthesia and CT Guidance. [id number] introducer needle was advanced into the presacral fluidcollection. Seldinger technique was utilized to place a 10 Eritrean lockingloop catheter into the fluid collection. Locking loop of the catheter was formed. 40 cc of light brown turbidfluid was aspirated. Locking loop catheter was sutured to the skin with2-0 Prolene. TARGET LOCATION: Presacral fluid collection. INTRODUCER NEEDLE: 17-gauge introducer needle. DRAIN TYPE/SIZE: 10 Eritrean locking loop catheter VOLUME OF FLUID ASPIRATED: 40 cc APPEARANCE OF ASPIRATE: Light brown turbid fluid COMPLICATION: None BLOOD LOSS: None. PATIENT INSTRUCTIONS: Patient may be dismissed from the radiologydepartment when dismissal criteria met. POST-PROCEDURE DIAGNOSIS: Presacral fluid collection. IMPRESSION: 1. Placement of a 10 Eritrean locking loop catheter into the presacral fluidcollection. 2. Recommend flushing and aspirating the catheter with 10 ml of salinetwice daily. 3. Consider sinogram in interventional radiology in a few days forcatheter evaluation. EP Uriel Whitehead APRNNSolitarioP., M.S.N. I MG CT PROCEDURES * (ABNORMAL) Bacterial Culture, Aerobic + Susceptibility (05/10/2024 12:22 PM CDT) Bacterial Culture, Aerobic + Susc BACTEROIDES THETAIOTAOMICRO N/FAECIS Growth after 1 day (A) 05/17/2024 2:04 PM CDT DTL Fluid (Pelvis) 05/10/2024 12 :22 PM CDT [facility] - 05/17/2024 2:04 PM CDT Bacterial Culture: Received Bactec aerobic and Bactec anaerobic bottles Organism Antibiotic Method Susceptibility Bacteroides thetaiotaomicron/faeci s Clindamycin SUSCEPTIBILITY, ANTHONY (MCG/ML) 4 mcg/mL: Intermediate Bacteroides thetaiotaomicron/faeci s Ertapenem SUSCEPTIBILITY, ANTHONY (MCG/ML) <=4 mcg/mL: Susceptible Bacteroides thetaiotaomicron/faeci s Metronidazole SUSCEPTIBILITY, ANTHONY (MCG/ML) <=2 mcg/mL: Susceptible Bacteroides thetaiotaomicron/faeci s Piperacillin + Tazobactam SUSCEPTIBILITY, ANTHONY (MCG/ML) <=16/4 mcg/mL: Susceptible Tasia Whitehead APRN.N.P., M.S.N. L MICROBIOLOGY - GENERAL ORDERABLES [facility] [address] [place] [address], [place] [facility] [address] [place] [address] * Fungal Smear (05/10/2024 12:22 PM CDT) Fungal Smear Negative. 05/10/2024 11:14 PM CDT DTL Fluid (Pelvis) 05/10/2024 12 :22 PM CDT Narrative [facility] - 05/10/2024 11:14 PM CDT Bacterial Culture: Received Bactec aerobic and Bactec anaerobic bottles Tasia Whitehead APRN.N.Murtaza., M.S.N. L MICROBIOLOGY - GENERAL ORDERABLES Performing Organization Address [facility] Co de Phone Number [facility] [address] [place], [place] [address] [place] [address] 200 [place] [address] * (ABNORMAL) Gram Stain (05/10/2024 12:22 PM CDT) Gram Stain White blood cells, Many.(A) 05/10/2024 3:19 PM CDT DTL Gram Stain GRAM NEGATIVE BACILLUS Many. (A) 05/10/2024 3:19 PM CDT DTL Comment: Semi-Urgent Result. Additional Report Semi-Urgent This is a semi-urgent result(ROMERO) [facility] Fluid (Pelvis) 05/10/2024 12 :22 PM CDT Narrative [facility] - 05/10/2024 3:19 PM CDT Bacterial Culture: Received Bactec aerobic and Bactec anaerobic bottles Tasia Whitehead APRN.N.P., M.S.N. L MICROBIOLOGY - GENERAL ORDERABLES Performing Organization Address [facility] Co de Phone Number [facility] [address] [place] [address], [facility] [address] [place] [address] * Prothrombin Time (PT) (05/09/2024 2:53 PM CDT) Only the most recent of5 resultswithin the time period is included. Prothrombin Time, P 11.6 9.4 - 12.5 sec 05/09/2024 3:04 PM CDT STMA INR 1.1 0.9 - 1.1 05/09/2024 3:04 PM CDT [facility] Comment: ----ADDITIONAL INFORMATION---- Standard intensity warfarin therapeutic range: 2.0 to 3.0 ?? High intensity warfarin therapeutic range: 2.5 to 3.5 Blood (Blood, Venous) 05/09/2024 2:53 PM CDT 05/09/2024 2:57 PM CDT Negar Stone P.A.-C., M.S. LAB BLOOD ADD-ON Performing Organization Address City/[facility]/ZIP Co de Phone Number [facility] [address] [place] [address] * (ABNORMAL) CRP (C-Reactive Protein) (05/09/2024 2:53 PM CDT) C-Reactive Protein (CRP), S 45.4(H) <5.0 mg/L 05/09/2024 3:41 PM CDT DTL Blood (Blood, Venous) 05/09/2024 2:53 PM CDT 05/09/2024 3:17 PM CDT Negar Stone P.A.-C., M.S. LAB BLOOD ADD-ON Performing Organization Address [facility] Co de Phone Number [facility] 200 [place] [address], [facility] DTL [facility] 200 [place] [address] * CT Chest with IV Contrast (05/06/2024 [...] disease in the chest. Genesis Suresh P.A.-C. IM CT PROCEDURES * [facility] - Sent Out Lab (05/02/2024 10:04 AM CDT) Only the most recent of2 resultswithin the time period is included. Test Name Peace 05/02/2024 1:24 PM CDT [facility] Result SEE COMMENT 05/17/2024 9:42 AM CDT [facility] Comment: For final report, select Lab-Send Out Lab Results hyperlink below. 05/02/2024 10:0 4 AM CDT 05/02/2024 1:24 PM CDT Mariluz Soler M.D. LAB GENETIC TESTING [employer] [address] [place] [address], [facility] [employer] [address] [place] [address] * [place] Hepatic Pump Evaluation SPECT CT [...] be better assessed with a contrast-enhanced study. Chris Viera D.O., M.B.A. [facility] ROCEDALICE * Perform central service line layer: De-access port (04/03/2024 9:56 AM CDT) Narrative Matt Cardona R.N. - 04/03/2024 9:56 AM CDT Matt Cardona R.N. ? 04/03/2024 ??9:58 AM Perform central service line layer: De-access port Performed by: Matt Cardona R.N. Authorized by: Doris Sainz M.B.B.SSolitario ?? Doris Dinero PRO CEDURE/MINOR SURGICAL ORDERABLES * (ABNORMAL) CBC [...] CDT Genesis Suresh P.A.-C. LAB BLOOD ADD-ON [facility] [address] [place] [address], [facility] [address] [place] [address] * Phosphorus Inorganic (04/02/2024 8:36 PM CDT) Only the most recent of4 resultswithin the time period is included. Pathologist [facility] Phosphorus (Inorganic), S 3.9 2.5 - 4.5 mg/dL 04/02/2024 9:16 PM CDT DTL Blood (Blood, Venous) 04/02/2024 8:36 PM CDT 04/02/2024 9:02 PM CDT Genesis Suresh P.A.-C. LAB BLOOD ADD-ON Performing Organization Address City/[facility] Co de Phone Number [facility] [address] 200 [place] [address] * Magnesium (04/02/2024 3:49 AM CDT) Only the most recent of3 resultswithin the time period is included. Magnesium, S 2.0 1.7 - 2.3 mg/dL 04/02/2024 5:10 AM CDT DTL Blood (Blood, Venous) 04/02/2024 3:49 AM CDT 04/02/2024 4:53 AM CDT Fiona Metzger APRN C.N.P., M.S.N. LAB BLOOD ADD-ON Performing Organization Address [facility] Co de Phone Number [facility] 200 [place] [address], [facility] 200 [place] [address] * [place] Guidance Intraoperative (03/29/2024 2:09 PM [...] minute at [address]. Panda Masters M.D. [facility] [place]EDURES * Patient Status (03/29/2024 1:28 PM CDT) Only the most recent of2 resultswithin the time period is included. Temperature 35.6 37.0 deg C 03/29/2024 1:28 PM CDT [facility] FIO2 0.38 0.21=AIR 03/29/2024 1:28 PM CDT [facility] Blood 03/29/2024 1:28 PM CDT 03/29/2024 1:28 PM CDT Sp Jonas M.D. LAB BLOOD NON ADD-O N [facility] [address] [place] [address], [facility] STMA [facility] [address] [place] [address] * (ABNORMAL) Lactate, B - Intra-op (03/29/2024 1:28 PM CDT) Only the most recent of2 resultswithin the time period is included. Pathologist [facility] Lactate, B 2.4(H) 0.5 - 2.2 mmol/L 03/29/2024 1:30 PM CDT [facility] Blood (Blood, Venous) 03/29/2024 1:28 PM CDT 03/29/2024 1:28 PM CDT Soniya Conroy M.D. LAB BLOOD NON ADD-ON Performing Organization Address City/[facility]/ZIP Co de Phone Number [facility] 200 [place], [place] [address] [place] [address] * Sodium, B (03/29/2024 1:28 PM CDT) Only the most recent of2 resultswithin the time period is included. [facility] Sodium, B 138 135 - 145 mmol/L 03/29/2024 1:30 PM CDT [facility] Blood (Blood, Arterial Line) 03/29/2024 1:28 PM CDT 03/29/2024 1:28 PM CDT Soniya Conroy M.D. LAB BLOOD NON ADD-ON Performing Organization Address City/[facility]/ZIP Co de Phone Number [facility] 200 [place] [address], [address] [address] * (ABNORMAL) Blood Gas with Coox, Arterial (03/29/2024 1:28 PM CDT) Only the most recent of2 resultswithin the time period is included. Pathologist [facility] pO2 171(H) 83 - 108 mm Hg [...] Soniya Conroy M.D. LAB BLOOD NON ADD-ON [facility] [address] [place] [address], [address] [address] * Potassium, Blood (03/29/2024 1:28 PM CDT) Only the most recent of2 resultswithin the time period is included. [facility] Potassium, B 4.2 3.6 - 5.2 mmol/L 03/29/2024 1:30 PM CDT [facility] Blood (Blood, Arterial Line) 03/29/2024 1:28 PM CDT 03/29/2024 1:28 PM CDT Soniya Conroy M.D. LAB BLOOD NON ADD-ON [facility] [address] [place] [address], [facility] STMA [facility] 200 [place] [address] * Glucose, Whole Blood (03/29/2024 1:28 PM CDT) Only the most recent of2 resultswithin the time period is included. Pathologist [facility] Glucose 127 70 - 140 mg/dL 03/29/2024 1:30 PM CDT [facility] Blood (Blood, Arterial Line) 03/29/2024 1:28 PM CDT 03/29/2024 1:28 PM CDT Soniya Conroy M.D. LAB BLOOD ADD-ON Performing Organization Address City/[facility]/ZIP Co de Phone Number [facility] [address] 200 [place] [address] * Calcium, Ionized (03/29/2024 1:28 PM CDT) Only the most recent of2 resultswithin the time period is included. Pathologist [facility] Calcium, Ionized, B 4.69 4.65 - 5.30 mg/dL 03/29/2024 1:30 PM CDT [facility] Blood (Blood, Arterial Line) 03/29/2024 1:28 PM CDT 03/29/2024 1:28 PM CDT Soniya Conroy M.D. LAB BLOOD NON ADD-ON Performing Organization Address City/[facility]/ZIP Co de Phone Number [facility] [address] 200 [place] [address] * Surgical Pathology, Frozen Lab (03/29/2024 10:18 AM CDT) Pathologist [facility] 03/31/2024 5:12 PM CDT [facility] Participated in the Interpretation Porsche Holbrook M.D.-Pathology Fellow 03/31/2024 5:12 PM CDT [facility] Report electronically signed by Mera Song M.D., Ph.D. I verify that I have examined all relevant slides/materials for the specimen(s) and rendered or confirmed the diagnosis. 03/31/2024 5:12 PM [facility] Frozen Intraoperative Report A. ??Soft tissue, portion [...] Ph.D. 03/30/2024 9:42 AM 03/31/2024 5:12 PM [facility] Gross Description A. ??Received fresh labeled portion [...] is procured for IRB No. [id number]. ??Photographed. ??Suspension Cord Tier tissue submitted for frozen and permanent sections. ??Grossed by Cadence Hoang M.S., NOEL([facility]). C. ??Received fresh labeled colon anastomotic rings are two (2) annular portions of bowel mucosa, each 1.7 cm in diameter, ranging from 0.9 to 1 cm in length. ??All submitted for permanent sections. ??Grossed by Brianna Martinez M.S., PA([facility]). D. ??Received fresh labeled gallbladder is a 9.8 x 3.6 x 1.6 cm gallbladder with a 0.3 cm maximum wall thickness, and patent cystic duct. ??A cystic duct lymph node is not identified. ??No stones are present within the lumen. ??No masses are identified. ??Suspension Cord Tier tissue submitted for permanent sections. ??Grossed by Brianna Martinez M.S., PA([facility]). E. ??Received fresh labeled portion of caudate liver is an 8.5 gram, 5.4 x 2.4 x 1.6 cm liver wedge specimen. ??A single 1.1 x 0.8 x 0.7 cm yellow mass is present, 0.3 cm from the inked surgical margin. ??Margin is submitted perpendicularly. ??Suspension Cord Tier tissue submitted for permanent sections. ??Grossed by Jaja Alejandre, P.A. ([facility]). F. ??Received fresh labeled liver segment NELLY is a 4.1 x 3.4 x 1.6 cm liver wedge specimen. ??A single 1.5 x 1 x 0.9 cm yellow mass is present, 0.5 cm from the inked surgical margin. ??Margin is submitted perpendicularly. Suspension Cord Tier tissue submitted for frozen and permanent sections. ??Grossed by Jaja Alejandre, P.A. ([facility]). G. ??Received fresh labeled liver segment VII is a 14.3 gram, 5.1 x 3.4 x 1.6 cm liver wedge specimen. ??A single 1 x 1 x 0.8 cm yellow mass is present, 0.4 cm from the inked surgical margin. ??Margin is submitted perpendicularly. Suspension Cord Tier tissue submitted for permanent sections. Grossed by Jaja Alejandre, P.A. ([facility]). H. ??Received fresh labeled hepatic artery lymph nodes is a 1.6 x 0.8 x 0.8 cm lymph node. ??Lymph nodes submitted for permanent sections. ??Grossed by Jaja Alejandre, P.A. ([facility]). I. ??Received fresh labeled portocaval lymph node is a 1.8 x 1 x 0.8 cm lymph node. ??Lymph nodes submitted for frozen and permanent sections. ??Grossed by Jaja Alejandre, P.A. ([facility]). J. ??Received fresh labeled segment 7 liver wedge No. 2 is a 0.40 gram, 1.8 x 1.2 x 0.3 cm liver wedge specimen. ??A single 0.2 x 0.2 x 0.2 cm holden-white mass is present, 0.1 cm from the inked surgical margin. ??Margin is submitted perpendicularly. ??Suspension Cord Tier tissue submitted for frozen and permanent sections. [...] will be performed on block B12 at [place], [place] Signed by Timothy Cordoba M.D. 04/19/2024 [...] in 1 hotspot field: ??Not applicable ?Tumor Traphill Score: ??Not applicable Treatment Effect: Present, with [...] Tissue (Liver) 03/29/2024 3: 07 PM CDT Chris Viera D.O. M.B.A. LAB SURG PATH ORDERABLES [facility] [address] [place] [address], [facility] [address] [place] [address] * TN ARTL CATH/CNULA MONITOR PERC, LDA ANE ARTERIAL [...] fellow participated in the procedure, and the travel sales consultant was present for the entire procedure. [...] ETT location: oral VL device: glide scope [place] scope blade size: 4 Tube size: 7.5 [...] Soniya Conroy M.D. ANESTHESIA ORDERABLE S * TN INJ SPINE LUMB/SAC WO IMG (03/29/2024 7:59 [...] Medications: Injection(s), anesthetic agent(s) and/or steroid; See MAR [employer]ERSAL PROTOCOL All relevant documentation and testing [...] fellow participated in the procedure, and the travel sales consultant was present for the entire procedure. Soniya Conroy M.D. PROCEDURE/MINOR SURG ICAL ORDERABLES * Specimen-Pathology Image Exam (03/29/2024 12:00 AM CDT) Narrative IISC - 03/29/2024 11:03 AM CDT This order has been created and auto-finalized to support the import of images acquired without order. The clinical documentation to support these images can be found on the encounter that produced images. Provider Not In System IMG NON RAD IMAGI NG PROCEDURES [facility] NA * [facility] Course Complete Treatment Information (03/28/2024 2:26 PM CDT) Only the most recent of2 resultswithin the time period is included. Course ID 1xRectum [facility] Course Start Date 4 11:28 CDT [facility] Course End Date 4 08:38 CDT RODRIGUEZ ARIA First Treatment Date 4 15:36 CDT RODRIGUEZ ARIA Last Treatment Date 4 14:26 CDT RODRIGUEZ ARIA Treatment Elapsed Days 5 RODRIGUEZ ARIA Reference Point [id number] RODRIGUEZ ARIA Dosage Given to Date cGy 2500 RODRIGUEZ ARIA Plan ID [id number] RODRIGUEZ ARIA Fractions Treated to Date 5 RODRIGUEZ ARIA Planned Total Fractions 5 RODRIGUEZ ARIA Prescribed Dose Per Fraction 500 RODRIGUEZ ARIA Prescription Dose in cGy 2500 RODRIGUEZ ARIA Plan Primary Reference Point [id number] RODRIGUEZ ARIA 03/28/2024 2:26 PM CDT Provider Not In System RADIATION ONCOLOG Y ORDERABLES MICHAEL RODRIGUEZ na * Aria Daily Treatment Information (03/28/2024 2:26 PM CDT) Only the most recent of5 resultswithin the time period is included. Course ID 1xRectum [facility] Course Start Date 4 11:28 CDT RODRIGUEZ ARIA First Treatment Date 4 15:36 CDT RODRIGUEZ ARIA Last Treatment Date 4 14:26 CDT RODRIGUEZ ARIA Treatment Elapsed Days 5 RODRIGUEZ ARIA Reference Point [id number] RODRIGUEZ ARIA Dosage Given to Date cGy 2500 RODRIGUEZ ARIA Session Dosage Given 500 RODRIGUEZ ARIA Plan ID [id number] RODRIGUEZ ARIA Fractions Treated to Date 5 RODRIGUEZ ARIA Planned Total Fractions 5 RODRIGUEZ ARIA Prescribed Dose Per Fraction 500 RODRIGUEZ ARIA Prescription Dose in cGy 2500 RODRIGUEZ ARIA Plan Primary Reference Point [id number] RODRIGUEZ ARIA 03/28/2024 2:26 PM CDT Provider Not In System RADIATION ONCOLOG Y ORDERABLES MICHAEL RODRIGUEZ na * Initial Rad Onc Treatment Planning CT Simulation (03/22/2024 3:30 PM CDT) Narrative RODRIGUEZ ARIA - 03/22/2024 3:30 PM CDT Caitlin Smalls, RTT ? 03/22/2024 ??3:44 PM Initial Rad Onc Treatment Planning CT Simulation Performed by: Santosh Washington M.D. Authorized by: Santosh Washington M.D. ?? Santosh Washington M.D. RADIATION ONCOLOG Y ORDERABLES Performing Organization Address City/[facility] Co de Phone Number [facility] lema * Type and Screen (with Reflex Antibody ID) (03/21/2024 8:57 AM CDT) Pathologist [facility] ABORh A Pos Not applicable 03/21/2024 5:17 PM CDT ETRM Antibody Screen Negative Negative 03/21/2024 5:32 PM CDT ETRM Type & Screen Expiration 05/19/2024 23:59 03/21/2024 5:17 PM CDT ETRM Testing Location [facility] 03/21/2024 11:42 AM CDT ETRM Blood (Blood, Venous) 03/21/2024 8:57 AM CDT 03/21/2024 11:42 AM CDT Chris Viera D.O., M.B.A. LAB BLOO D BANK TEST ORDERABLES Performing Organization Address [facility] Co de Phone Number [facility] 200 [place] [address], [facility] ETRM [facility] 200 [place] [address] * CEA (Carcinoembryonic Antigen) (03/21/2024 8:57 AM CDT) [facility] Carcinoembryonic Ag (CEA), S 1.3 ng/mL 03/21/2024 4:32 PM CDT [facility] Comment: ----REFERENCE VALUE---- <=3.0 (Non-smokers) Some smokers may have elevated CEA, usually <5.0. ----ADDITIONAL INFORMATION---- The testing method is an immunoenzymatic assay manufactured by [employer] and performed on the [employer]. ? Values obtained with different assay methods or kits may be different and cannot be used interchangeably. ? Test results cannot be interpreted as absolute evidence for the presence or absence of malignant disease. Blood (Blood, Venous) 03/21/2024 8:57 AM CDT 03/21/2024 2:56 PM CDT Chris Viera D.O., M.B.A. LAB BLOO D ADD-ON [facility] [address] [place] [address] [facility] [address] [place] [address] * Surgical Pathology (03/16/2024 2:17 PM CDT) [...] Wong M.D. LAB SURG PATH ORDER DEENA Performing Organization Address City/[facility]/ZIP Co de Phone Number [facility] [address] [place] [address], [facility] DTL [address] [place] [address] * Colonoscopy-Gastroenterology Image Exam (03/16/2024 1:55 PM [...] RAD IMAGI NG PROCEDURES Performing Organization Address [facility] Co de Phone Number [facility] NA * Colonoscopy (03/16/2024 1:51 PM CDT) 03/16/2024 1:51 PM CDT Impressions [facility] - 03/16/2024 2:48 PM CDT Post-op Diagnoses: [...] normal on direct and retroflexion views. Narrative [facility] - 03/16/2024 2:48 PM CDT Esteban 6 [...] bowel preparation was evaluated using the BBPS (Tina ? Bowel Preparation Scale) with scores of: [...] electronically. Number of Addenda: 0 Patsy Bowser APRN C.N.P., M.S. GI PROCEDURE ORDERABLES Performing Organization Address City/State/[facility] Phone Number [facility] from Last 3 Months Additional Health Concerns Infection Onset Date Last Indicated Protective Environment 04/26/2024 4 Advance Directives For more information, please contact: [phone] * Full Code (Latest Code Status on [...] Answer Comments Full Code: Discussed Care Teams Hat Checker Relationship Specialty Start Date End Date Kayla Rowland APRN, C.N.P. [address] [phone] PCP - General 03/04/24 Roger Sorensen Therapist 02/14/20
--- OUTSIDE RECORDS SUMMARY | 2024-05-25 00:02 | XMS_ITS | Encounter Summary ---
Author Organization [facility] Address [address] [place] [address] Care Team Providers Care Marine Equipment Sales Engineer Name Role Phone Kayla Rowland APRN, C.N.P. Primary Care Provide r Encounter Details Date Type Department Care Team (Late st Contact Info) Description 05/23/2024 9:20 AM CDT Lab Department of Infusion Therapy in [place], [place] [address] [place] [phone] Patsy Bowser APRN, C.N.P., M.S. 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 Never 12/06/2021 Do you belong to any clubs o r organizations such as yarsani groups, unions, fraternal or athletic groups, or [...] Answer Date Recorded PHQ-2 Score 0 04/06/2024 [facility] Occupat ional Health - Occupational Stress [...] your living situation today? I have a [facility] place to live 05/12/2024 Education Answer Date Recorded What is the highest level of school you have completed or the highest degree you have received? 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 200 [place] [address] 06/07/2024 9:20 AM CDT Lab Department of Infusion Therapy in [place], [place] [address] [place] [phone] Mariluz Soler M.D. [address] [place] [phone] 06/07/2024 11:20 AM CDT Office Visit Department of Oncology in [place], [place] [address] [place] [phone] Mariluz Soler M.D. [address] [place] [phone] 06/07/2024 1:00 PM CDT Infusion Department of Oncology in [place], [place] [address] [place] [phone] Mariluz Soler M.D. [address] [place] [phone] 06/17/2024 8:30 AM CDT Appointment Department of Laboratory Medicine and Pathology, [facility], in [place], [place] [address] [place] [phone] Anny Mcneill M.D. [address] [place] [phone] 06/17/2024 9:00 AM CDT Lab Department of Infusion Therapy in [place], [place] [address] [place] [phone] Anny Mcneill M.D. [address] [place] [phone] 06/17/2024 10:45 AM CDT Procedure visit Department of Urology in [place], [place] [address] [place] [phone] Anny Mcneill M.D. [address] [place] [phone] 06/17/2024 1:45 PM CDT Comprehensive Visit Department of Urology in [place], [place] [address] [place] [phone] Ayesha Romero P.A.-C. [address] [place] [phone] 06/17/2024 4:15 PM CDT Comprehensive Visit Department of Urology in [place], [place] [address] [place] [phone] Scotty Tom APRN, CSolitarioNSolitarioP. 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 Author Eat a balanced, healthy diet Diet Worsening( 11:49 AM CDT) Yes [place], Nadia Boone R.N. Note: 02/14/20 - Has one regular meal daily (supper), otherwise not as hungry and snacks on fruit in AM, chips in evening. Will readdress his dietary goals and see if this makes a difference in his mood. Read Managing My Depression General Improving( 11:43 AM CDT) Yes [place], Nadia Boone R.N. Note: P. 46-48 Create a relapse prevention plan. Spend time with my dog again. General On track( 11:43 AM CDT) Yes Nadia Nickerson R.N. Have some time to himself regularly. General On track( 11:47 AM CDT) Yes [place]ia R.N. Note: 01/24/20 - More structure to his day. 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 Recognizing he needs more personal time. Meet with therapist regularly General On track( 020 11:43 AM CDT) Yes [place], Nadia Boone R.N. Note: Dr. Pavan Sorensen, with [facility] in [place], [place]. Take your medication every day Lifestyle On track( 020 11:49 AM CDT) No [place], Nadia Boone R.N. Note: Increased Wellbutrin to 300 mg daily 02/09/20. PHQ-9 Total Score (max 27) < 5 Symptom Management 3(04/06/2024 7:51 PM CDT) No Krishan, Nadia Boone R.N. Note: Enrollment PHQ9=18 on 08/16/19 Patient goals at enrollment: 1. I'd like to have my depression be less intense. 2. I'd like to learn some coping strategies. 3. 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 [place] B BLOOD ADD-ON [facility] [address] [place] [address], [facility] [address] [place] [address] * Bilirubin, Direct (05/23/2024 9:21 AM CDT) Bilirubin, Direct, S <0.2 0.0 - 0.3 mg/dL 05/23/2024 10:14 AM CDT DTL Blood (Blood, Venous) 05/23/2024 9:21 AM CDT 05/23/2024 9:53 AM CDT Patsyrashawn Bowser APRN, C.N.P., M.S. [place] B BLOOD ADD-ON [facility] [address] [place] [address], [facility] DTL [facility] [address] [place] [address] * (ABNORMAL) Comprehensive Metabolic Panel (05/23/2024 9:21 AM CDT) Pathologist [facility] Potassium, S 4.4 3.6 - 5.2 mmol/L [...] Paula APRN.N.P., M.S. [place] B BLOOD ADD-ON [facility] [address] [facility] [address] [place] [address] * (ABNORMAL) CBC with Differential, Blood (05/23/2024 9:21 AM CDT) Hemoglobin 13.5 13.2 - 16.6 g/dL 05/23/2024 [...] 9:39 AM CDT Patsy Bowser APRN, C.N.P., M.S. 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 5 mL (500 units) of Heparin 100 units/mL to each port/lumen. When IVAD not accessed or infusing: When no infusion to maintain patency flush every 28 days following NaCL flush. 5 mL (500 units) of Heparin 100 units/mL to each port/lumen. Given 05/23/2024 9:22 AM CDT 500 Units sodium chloride 0.9 % injection 20-40 mL 20-40 mL, intra-catheter, As needed, line care, Starting on Thu05/23/24 at 0910, When IVAD accessed and infusing: Flush prior to blood sampling, post blood transfusion or post blood sampling. 20 mL to each port/lumen. Given 05/23/2024 9:22 AM CDT 40 mL documented in this encounter Additional Health Concerns Infection Onset Date Last Indicated Resolved Time Protective Environment 04/26/2024 04/26/2024 Assessment Noted Time PHQ-9 Depression Total Score: 3 04/06/20 24 7:51 PM CDT documented as of this encounter Care Teams Marine Equipment Sales Engineer Relationship Specialty Start Date End Date Kayla Rowland APRN, C.N.P. [address] [place] [phone] PCP - General 03/04/24 Roger Sorensen Therapist 02/14/20 documented as of this encounter
--- OUTSIDE RECORDS SUMMARY | 2024-05-25 00:02 | XMS_ITS | Encounter Summary ---
Author Organization [facility] Address [address] [place] [address] Care Team Providers Care Rehabilitation Services Manager Name Role Phone Kayla Rowland APRN, C.N.P. 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 [address] [place] [phone] Rst Onc Rogo [address] [place] [phone] Referral ID Status Reason Start Date Expiration Date V isits Requested Visits Authorized [id number] Authorized 02/11/2024 10/18/2024 24 99 Encounter Details Date Type Department Care Team (Late st Contact Info) Description 05/23/2024 12:15 PM CDT Infusion Department of Oncology in [place], [place] [address] [place] [phone] Mariluz Soler M.D. 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 Never 12/06/2021 Do you belong to any clubs o r organizations such as yazdanism groups, unions, fraternal or athletic groups, or [...] Answer Date Recorded PHQ-2 Score 0 04/06/2024 [facility] of Occupat ional [facility] - Occupational Stress Questionnaire Answer Date Recorded [...] your living situation today? I have a [facility] place to live 05/12/2024 Education Answer Date Recorded What is the highest level of school you have completed or the highest degree you have received? Master's degree (e.g., MA, MS, Aba, MEd, GRINDER MACHINE SETTER, GAMALIEL) 08/15/2019 Sex and Gender Information Value Date Recorded Sex Assigned at Male 09/09/2023 12:48 PM OPERATIONS DEVELOPER Gender Identity Male 08/15/2019 2:16 PM CDT Sexual Orientation Straight 08/15/2019 2: 16 PM CDT documented as of this encounter Plan of Treatment Upcoming Encounters Date Type Department Care Team (Late st Contact Info) Description 06/01/2024 9:30 AM CDT Clinical Support Division of Colon and Rectal Surgery in [place], [place] [address] [place] [phone] Armida Bullock APRN, C.N.P., M.S.N. [address] [place] [phone] 06/07/2024 9:20 AM CDT Lab Department of Infusion Therapy in [place], [place] [address] [place] [phone] Mariluz Soler M.D. [address] [place] [phone] 06/07/2024 11:20 AM CDT Office Visit Department of Oncology in [address] [phone] Mariluz Soler M.D. [address] [place] [phone] 06/07/2024 1:00 PM CDT Infusion Department of Oncology in [place], [place] [address] [place] [phone] Mariluz Soler M.D. [address] [place] [phone] 06/17/2024 8:30 AM CDT Appointment Department of Laboratory Medicine and Pathology, [facility], in [place], [place] [address] [place] [phone] Anny Mcneill M.D. [address] [place] [phone] 06/17/2024 9:00 AM CDT Lab Department of Infusion Therapy in [place], [place] [address] [place] [phone] Anny Mcneill M.D. [address] [place] [phone] 06/17/2024 10:45 AM CDT Procedure visit Department of Urology in [place], [place] [address] [place] [phone] Anny Mcneill M.D. [address] [place] [phone] 06/17/2024 1:45 PM CDT Comprehensive Visit Department of Urology in [place], [place] [address] [place] [phone] Ayesha Romero, P.A.-CSolitario [address] [place] [phone] 06/17/2024 4:15 PM CDT Comprehensive Visit Department of Urology in [place], [place] [address] [place] [phone] Scotty Tom, JAD, C.N.P. [address] [place] [phone] documented as of this encounter Goals Goal Patient Goal Type Associated Problems Recent Progress Patient-Stated? Author Eat a balanced, healthy diet Diet Worsening( 11:49 AM CDT) Yes Loyall, Nadia Boone R.N. Note: 02/14/20 - Has one regular meal daily (supper), otherwise not as hungry and snacks on fruit in AM, chips in evening. Will readdress his dietary goals and see if this makes a difference in his mood. Read Managing My Depression General Improving( 11:43 AM CDT) Yes Loyall, Nadia Boone R.N. Note: P. 46-48 Create a relapse prevention plan. Spend time with my dog again. General On track( 11:43 AM CDT) Yes Nadia Nickerson R.N. Have some time to himself regularly. General On track( 11:47 AM CDT) Yes Krishan, Nadia Boone R.N. Note: 01/24/20 - More structure to his day. 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 Recognizing he needs more personal time. Meet with therapist regularly General On track( 11:43 AM CDT) Yes Nadia Nickerson R.N. Note: Dr. Pavan Sorensen, with [facility] in [place], [place]. Take your medication every day Lifestyle On track( 11:49 AM CDT) No Nadia Nickerson R.N. Note: Increased Wellbutrin to 300 mg daily 02/09/20. PHQ-9 Total Score (max 27) < 5 Symptom Management 3(04/06/2024 7:51 PM CDT) No Nadia Nickerson R.N. Note: Enrollment PHQ9=18 on 08/16/19 Patient goals at enrollment: 1. I'd like to have my depression be less intense. 2. I'd like to learn some coping strategies. 3. 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 Dose reflects TOTAL CALCULATED DOSE to be administered via continuous infusion over the specified length of treatment. Given 05/23/2024 1:01 PM CDT 30,000 Units documented in this encounter Additional Health Concerns Infection Onset Date Last Indicated Resolved Time Protective Environment 04/26/2024 04/26/2024 Assessment Noted Time PHQ-9 Depression Total Score: 3 04/06/20 24 7:51 PM CDT documented as of this encounter Care Teams Rehabilitation Services Manager Relationship Specialty Start Date End Date Kayla Rowland APRN, C.N.P. [address] [place] [phone] PCP - General 03/04/24 Roger Sorensen Therapist 02/14/20 documented as of this encounter
--- OUTSIDE RECORDS SUMMARY | 2024-05-25 00:02 | XMS_ITS ---
Author Organization [facility] Address [address] [place] [address] Care Team Providers Care [employer] Principal Name Role Phone Unavailable Unavailable Unavailable Surgery Details Not on file Complications Check Surgery Details section. Procedure Estimated Blood Loss Check Surgery Details section. Procedure Findings Check Surgery Details section. Procedure Specimens Taken Check Surgery Details section.
--- OUTSIDE RECORDS SUMMARY | 2024-05-25 00:02 | XMS_ITS | Encounter Summary ---
Author Organization [facility] Address [address] [place] [address] Care Team Providers Care Box Spinner Name Role Phone Kayla Rowland APRN, C.N.P. Primary Care Provide r Encounter Details Date Type Department Care Team (Late st Contact Info) Description 05/23/2024 Orders Only Division of Colon and Rectal Surgery in [place], [place] [address] [place] [phone] Yg Zamarripa, R.N. 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 Never 12/06/2021 Do you belong to any clubs o r organizations such as cheondoism groups, unions, fraternal or athletic groups, or [...] Answer Date Recorded PHQ-2 Score 0 04/06/2024 [facility] of Occupat ional [facility] - Occupational Stress Questionnaire Answer Date [...] your living situation today? I have a [facility] place to live 05/12/2024 Education Answer Date Recorded What is the highest level of school you have completed or the highest degree you have received? Master's degree (e.g., MA, MS, Aba, MEd, SNATH HANDLE ASSEMBLER, GAMALIEL) 08/15/2019 Sex and Gender Information Value Date Recorded Sex Assigned at Male 09/09/2023 12:48 PM STNA Gender Identity Male 08/15/2019 2:16 PM CDT Sexual Orientation Straight 08/15/2019 2: 16 PM CDT documented as of this encounter Plan of Treatment Upcoming Encounters Date Type Department Care Team (Late st Contact Info) Description 06/01/2024 9:30 AM CDT Clinical Support Division of Colon and Rectal Surgery in [place], [place] [address] [place] [phone] Armida Bullock APRN, C.N.P., M.S.N. [address] [place] [phone] 06/07/2024 9:20 AM CDT Lab Department of Infusion Therapy in [place], [place] [address] [place] [phone] Mariluz Soler M.D. [address] [place] [phone] 06/07/2024 11:20 AM CDT Office Visit Department of Oncology in [place], [place] [address] [place] [phone] Mariluz Soler M.D. [address] [place] [phone] 06/07/2024 1:00 PM CDT Infusion Department of Oncology in [place], [place] [address] [place] [phone] Mariluz Soler M.D. [address] [place] [phone] 06/17/2024 8:30 AM CDT Appointment Department of Laboratory Medicine and Pathology, [facility] in [place], [place] [address] [place] [phone] Anny Mcneill M.D. [address] [place] [phone] 06/17/2024 9:00 AM CDT Lab Department of Infusion Therapy in [place], [place] [address] [place] [phone] Anny Mcneill M.D. [address] [place] [phone] 06/17/2024 10:45 AM CDT Procedure visit Department of Urology in [place], [place] [address] [place] [phone] Anny Mcneill M.D. [address] [place] [phone] 06/17/2024 1:45 PM CDT Comprehensive Visit Department of Urology in [place], [place] [address] [place] [phone] Ayesha Romero P.A.-C. [address] [place] [phone] 06/17/2024 4:15 PM CDT Comprehensive Visit Department of Urology in [place], [place] [address] [place] [phone] Scotty Tom APRN, UrielNSolitarioP. [address] [place] [phone] documented as of this encounter Goals Goal Patient Goal Type Associated Problems Recent Progress Patient-Stated? Author Eat a balanced, healthy diet Diet Worsening( 11:49 AM CDT) Yes Cairo, Nadia Boone R.N. Note: 02/14/20 - Has one regular meal daily (supper), otherwise not as hungry and snacks on fruit in AM, chips in evening. Will readdress his dietary goals and see if this makes a difference in his mood. Read Managing My Depression General Improving( 11:43 AM CDT) Yes Cairo, Nadia Boone R.N. Note: P. 46-48 Create a relapse prevention plan. Spend time with my dog again. General On track( 11:43 AM CDT) Yes Cairo, Nadia Boone R.N. Have some time to himself regularly. General On track( 11:47 AM CDT) Yes Cairo, Nadia Boone R.N. Note: 01/24/20 - More structure to his day. Thankful for this time to maintenance and repair worker. Recognizing he needs more personal time. Meet with therapist regularly General On track( 11:43 AM CDT) Yes Cairo, Tammy Mcghee.N. Note: Dr. Pavan Sorensen, with [facility] in [place], [place]. Take your medication every day Lifestyle On track( 020 11:49 AM CDT) No Nadia Nickerson, R.N. 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 [address] [place] [phone] PCP - General 03/04/24 Roger Sorensen Therapist 02/14/20 documented as of this encounter
--- OUTSIDE RECORDS SUMMARY | 2024-05-25 00:02 | XMS_ITS | Encounter Summary ---
Author Organization [facility] Address [address] [place] [phone] Care Team Providers Care Ophthalmic Medical Assistant Name Role Phone Kayla Rowland APRN, C.N.P. Primary Care Provide r Encounter Details Date Type Department Care Team (Late st Contact Info) Description 05/24/2024 Clinical Communication Department of Oncology in [place], [place] [address] [place] [phone] Pedro Mahoney M.D., Pharm.D. [address] [place] [phone] Social History Tobacco Use Types Packs/Day Years Used Date Smoking Tobacco: Former Cigarettes 1 - 08/18/2015 Smokeless Tobacco: Never Alcohol Use Standard Drinks/Week Comments Not Currently 0 (1 standard drink = 0.6 oz pur e alcohol) [facility] Utilities Answer Date Recorded In the past 12 months has [facility], gas, oil, or water [employer] threatened to shut off services in your [...] often do you attend chur ch or mu-ism services? Never 12/06/2021 Do you belong to any clubs o r organizations such as worship groups, unions, fraternal or athletic groups, or [...] 0 04/06/2024 [facility] Questionnaire Answer Date Recorded [...] your living situation today? I have a [facility] place to live 05/12/2024 Education Answer Date Recorded What is the highest level of school you have completed or the highest degree you have received? Master's degree (e.g., MA, MS, Aba, MEd, WRINGER OPERATOR, GAMALIEL) 08/15/2019 Sex and Gender Information Value Date Recorded Sex Assigned at Male 09/09/2023 12:48 PM LAUNDRY HELPER Gender Identity Male 08/15/2019 2:16 PM CDT Sexual Orientation Straight 08/15/2019 2: 16 PM CDT documented as of this encounter Miscellaneous Notes * Telephone Encounter - Pedro Mahoney M.D., Pharm.D. - 05/24/2024 10:32 PM CDT Channel [employer] Stiffener Insoles note: Mr. Snowden is a 43 year old male with history of metastatic rectal cancer and was recently discharged on 05/15/24 after being admitted to [facility] for management of a presacral fluid abscess s/p IR drain placement on 05/10/24 Patient called in with a persistent fever of 101 degrees F. He states he has been feeling well except noticed this fever. He has not had recent chemotherapy but did have his pump filled for RIP Intera IFL. Cell counts were ok but I am concerned given this history of fluid collections and recent fevers and recommended the patient be evaluated by the ED. The patient agreed and all questions were answered. Sebastian Mahoney M.D., Pharm.D. Recent Results (from the past 72 hour(s)) CBC with Differential, Blood Collection Time: 05/23/24 9:21 AM Result Value Hemoglobin 13.5 Hematocrit 42.0 Erythrocytes 4.82 MCV 87.1 RBC Distrib Width 12.7 Platelet Count 383 (H) Leukocytes 7.3 Neutrophils 5.44 Lymphocytes 1.06 Monocytes 0.64 Eosinophils 0.13 Basophils 0.06 Comprehensive Metabolic Panel Collection Time: 05/23/24 9:21 AM Result Value Potassium, S 4.4 Sodium, S 140 Chloride, S 103 Bicarbonate, S 25 Anion Gap 12 BUN (Blood Urea Nitrogen), S 17 Creatinine 0.87 Estimated GFR (eGFR) >90 Calcium, Total, S 9.3 Glucose, S 86 Protein, Total, S 6.5 Albumin, S 4.0 Aspartate Aminotransferase (AST), S 37 Alkaline Phosphatase, S 250 (H) Alanine Aminotransferase (ALT), S 80 (H) Bilirubin, Total, S 0.3 Bilirubin, Direct Collection Time: 05/23/24 9:21 AM Result Value Bilirubin, Direct, S <0.2 Lipid Panel Collection Time: 05/23/24 9:21 AM Result Value Triglycerides 95 Cholesterol, Total 151 Cholesterol, LDL, Calculated 75 Cholesterol, HDL, S 58 Cholesterol, Non-HDL, Calculated 93 Fasting (8 HR or more) No documented in this encounter Plan of Treatment Upcoming Encounters Date Type Department Care Team (Late st Contact Info) Description 06/01/2024 9:30 AM CDT Clinical Support Division of Colon and Rectal Surgery in [address] [phone] Armida Bullock APRN, C.N.P., M.S.N. [address] [place] [phone] 06/07/2024 9:20 AM CDT Lab Department of Infusion Therapy in [place], [place] [address] [place] [phone] Mariluz Soler M.D. [address] [place] [phone] 06/07/2024 11:20 AM CDT Office Visit Department of Oncology in [place], [place] [address] [place] [phone] Mariluz Soler M.D. [address] [place] [phone] 06/07/2024 1:00 PM CDT Infusion Department of Oncology in [place], [place] [address] [place] [phone] Mariluz Soler M.D. [address] [place] [phone] 06/17/2024 8:30 AM CDT Appointment Department of Laboratory Medicine and Pathology, [facility] in [place], [place] [address] [place] [phone] Anny Mcneill M.D. [address] [place] [phone] 06/17/2024 9:00 AM CDT Lab Department of Infusion Therapy in [place], [place] [address] [place] [phone] Anny Mcneill M.D. [address] [place] [phone] 06/17/2024 10:45 AM CDT Procedure visit Department of Urology in [place], [place] [address] [place] [phone] Anny Mcneill M.D. [address] [place] [phone] 06/17/2024 1:45 PM CDT Comprehensive Visit Department of Urology in [place], [place] [address] [place] [phone] Ayesha Romero P.A.-C. [address] [place] [phone] 06/17/2024 4:15 PM CDT Comprehensive Visit Department of Urology in [place], [place] [address] [place] [phone] Scotty Tom APRN, UrielNSolitarioP. [address] [place] [phone] documented as of this encounter Goals Goal Patient Goal Type Associated Problems Recent Progress Patient-Stated? Author Eat a balanced, healthy diet Diet Worsening( 11:49 AM CDT) Yes Hernandez, Nadia Boone R.N. Note: 02/14/20 - Has one regular meal daily (supper), otherwise not as hungry and snacks on fruit in AM, chips in evening. Will readdress his dietary goals and see if this makes a difference in his mood. Read Managing My Depression General Improving( 11:43 AM CDT) Yes Hernandez, Nadia Boone R.N. Note: P. 46-48 Create a relapse prevention plan. Spend time with my dog again. General On track( 11:43 AM CDT) Yes Hernandez, Michael McgheeN. Have some time to himself regularly. General On track( 11:47 AM CDT) Yes Hernandez, Nadia Boone R.N. Note: 01/24/20 - More structure to his day. Thankful for this time to medical case worker. Recognizing he needs more personal time. Meet with therapist regularly General On track( 11:43 AM CDT) Yes Hernandez, Nadia Boone R.N. Note: Dr. Pavan Sorensen, with [facility] in [place], [place]. Take your medication every day Lifestyle On track( 020 11:49 AM CDT) No Nadia Nickerson RSolitarioN. Note: Increased Wellbutrin to 300 mg daily 02/09/20. PHQ-9 Total Score (max 27) < 5 Symptom Management 3(04/06/2024 7:51 PM CDT) No Nadia Nickerson RSolitarioN. Note: Enrollment PHQ9=18 on 08/16/19 Patient goals at enrollment: 1. I'd like to have my depression be less intense. 2. I'd like to learn some coping strategies. 3. I'd like to learn how to keep my depression from flaring back again documented as of this encounter Visit Diagnoses Not on filedocumented in this encounter Additional Health Concerns Infection Onset Date Last Indicated Resolved Time Protective Environment 04/26/2024 04/26/2024 Assessment Noted Time PHQ-9 Depression Total Score: 3 04/06/20 24 7:51 PM CDT documented as of this encounter Care Teams Ophthalmic Medical Assistant Relationship Specialty Start Date End Date Kayla Rowland APRN, C.N.P. [address] [facility] [place] [phone] PCP - General 03/04/24 Roger Sorensen Therapist 02/14/20 documented as of this encounter
--- OUTSIDE RECORDS SUMMARY | 2024-05-25 00:02 | XMS_ITS ---
Author Organization [facility] Address [address] [place] [address] Care Team Providers Care Auto Finance Sales Rep Name Role Phone Kayla Rowland APRN, C.N.P. 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)Malignant Neoplasm Of Rectum (HCC)Secondary Malignant Neoplasm Liver (HCC) Treatment Medications Current Day (Day 1 5, Cycle 2 - Planned for 06/07/2024) Next Day (Day 1, Cycle 3 - Planned for 06/21/2024) floxuridine (FUDR), dexAMETHasone, and heparin in 30 mL (RIP)fluorouraciL (AdruciL)irinotecan (Camptosar) fluorouraciL 4,500 mg in NaCl 0.9% 230 mL IVPB (AdruciL)irinotecan 280 mg in NaCl 0.9% 514 mL IVPB (Camptosar) floxuridine, dexAMETHasone 25 mg, heparin (porcine) 30,000 Units in NaCl 0.9% bacteriostatic 30 mL injectionfluorouraciL 4,500 mg in NaCl 0.9% 230 mL IVPB (AdruciL)irinotecan 280 mg in NaCl 0.9% 514 mL IVPB (Camptosar) Hydration* Plan Start Date:11/11/2023 Plan Provider:Denia Michelle APRN, C.N.P., M.S.N. 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 Vascular Access Patency - Implanted Vascular Access Device (IVAD) Venous Non-Valved* Plan Start Date:03/21/2024 Linked Problems Malignant Neoplasm Of Rectum (HCC) Treatment Medications No medications scheduled. Past Plans Flushes/Hydration Plan Name Start Date Discontinue Date Treatment Medications Discontinue Reason Plan Provider Vascular Access Patency - Implanted Vascular Access Device (IVAD) Venous Non-Valved 09/22/2023 03/21/2024 No medications scheduled. Unlisted - Hem/Onc Therapy Plan 1 Plan Name Start Date Discontinue Date Treatment Medications Discontinue Reason Plan Provider Hydration 10/29/2023 10/29/2023 No medications scheduled. Therapy Complete Patsy Bowser APRN, C.N.P., M.S. Hematology / Oncology Treatment 1 Plan Name Start Date Discontinue Date Treatment Medications Discontinue Reason Plan Provider Cycles FOLFOXIRI + Bevacizumab ( Fluorouracil / Leucovorin / Oxaliplatin / Irinotecan / Bevacizumab ) 09/23/2003/29/2024 bevacizumab-awwb (Mvasi) IVPB Non-QS solutionfluorouraciL (AdruciL)fluorouraciL (AdruciL) IVPB in 230 mL (c-series) (AdruciL)irinotecan (Camptosar)irinotecan (Camptosar) IVPB in D5W 500 mL (Camptosar)leucovorin 100 mg IVPB in D5W 100 mL (20 mg/mL)oxaliplatin (Eloxatin) IVPB in 250 mL (Eloxatin) Unlisted Patsy Bowser APRN, C.N.P., M.S. 10 of 12 cycles started Radiation Treatments * Plan Last Treated On Elapsed Days Fractions Treated Prescribed Fraction Dose Prescribed Total Dose [id number] 03/28/2024 5 5 of 5 500 cGy 2,500 cGy Reference Point Last Treated On Elapsed Days Session Dose Total Dose [id number] 03/28/2024 5 500 cGy 2,500 cGy Lifetime Dose Tracking * Chemical Lifetime Dose Automatic Entry Manual Entr y Radiation 77.58 mGy 77.58 mGy 0 mGy Fluoro Time 2.53 minutes 2.53 minutes 0 minutes DAP (uGy-m2) 1,857.6 uGy-m2 1,857.6 uGy-m2 0 uGy-m2 Resolved Problems Problem Noted Date Diagnosed Date Resolved Date Hematochezia 07/22/2019 08/19/2019 Depression Major Recurrent Mild 05/11/2017 03/12/2022 Overview (07/12/2017): Depression Major Recurrent Mild
--- OUTSIDE RECORDS SUMMARY | 2024-05-25 00:03 | XMS_ITS | Encounter Summary ---
Author Organization [facility] Address [address] [place] [address] Care Team Providers Care Senior Private Client Advisor Name Role Phone Kayla Rowland APRN C.N.P. Primary Care Provide r Reason for Referral * Outpatient (Routine) - Authorized Specialty Diagnoses / Procedures Referred By Contac t Referred To Contact Diagnoses Ileostomy Status (HCC) Procedures Stomal Therapy Armida Bullock APRN C.N.P., M.S.N. [address] [place] [phone] [facility] Referral ID Status Reason Start Date Expiration Date V isits Requested Visits Authorized [id number] Authorized 05/20/2024 05/20/2025 1 1 * Outpatient (Routine) - Authorized Specialty Diagnoses / Procedures Referred By Contac t Referred To Contact Colon and Rectal Surgery Armida Bullock APRN C.N.P., M.S.N. [address] [place] [phone] [facility] Referral ID Status Reason Start Date Expiration Date V isits Requested Visits Authorized [id number] Authorized 05/20/2024 11/19/2025 1 1 Scheduling Instructions Following drain check Reason for Visit * Outpatient (Routine) - Closed Specialty Diagnoses / Procedures Referred By Keya olivares Referred To Contact Colon and Rectal Surgery Tej Quintanilla M.B., Mike., M.P.H. 200 [place] [address] [facility] Referral ID Status Reason Start Date Expiration Date Visits Re quested Visits Authorized [id number] Closed 05/17/2024 11/16/2025 1 1 Encounter Details Date Type Department Care Team (Latest Contact Info) Description 05/20/2024 2:00 PM CDT Office Visit Division of Colon and Rectal Surgery in [place], [place] [address] [place] [phone] Armida Bullock APRN, C.N.P., M.S.N. 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); Secondary Malignant Neoplasm Liver (HCC); Other Intra Abdominal And Pelvic Swelling Mass And Lump; Ileocolic Crohn's Disease (HCC) Social History Tobacco Use Types Packs/Day Years Used Date Smoking Tobacco: Former Cigarettes 1 - 08/18/2015 Smokeless Tobacco: Never Alcohol Use Standard Drinks/Week Comments Not Currently 0 (1 standard drink = 0.6 oz pur e alcohol) [facility] Utilities Answer Date Recorded In the past 12 months has [facility] [employer], oil, or water [employer] threatened to shut off services in your [...] often do you attend chur ch or jehovah's witness services? Never 12/06/2021 Do you belong to any clubs o r organizations such as lutheran groups, unions, fraternal or athletic groups, or [...] Answer Date Recorded PHQ-2 Score 0 04/06/2024 [facility] Questionnaire Answer Date Recorded [...] your living situation today? I have a [facility] place to live 05/12/2024 Education Answer Date Recorded What is the highest level of school you have completed or the highest degree you have received? 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 - 05/20/2024 2:00 PM CDT SUBJECTIVE HISTORY OF PRESENT ILLNESS Heriberto Snowden presents to the department of colon and rectal surgery for a post-operative visit. 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 (7 weeks, 3 days) Surgeon: Dr. Tej Quintanilla and Dr. Viera ([facility]) Patient presented to the ED on 05/09 with increasing posterior pelvis pain. CT revealed a 5.3 x 3.9 x 7.3 cm presacral fluid collection. He was admitted to Dr. Quintanilla's service. On 05/[address] guided drain was placed and flushing/aspirating initiated. Cultures revealed bacteroides thetaiotaomicron/faecis and GNB. With the absence of fevers and leukocytosis, no antibiotics, drain controlling infection. He was discharged on 05/11. Patient returned to the ED on 05/12 with nausea, left sided drain pain and rectal pain. CT revealed stable findings, but admitted patient for pain control. Pain felt likely do to full bladder pushing against drain. Unable to void and high PVR; required multiple intermittent catheterization and taught how to perform self intermittent catheterizations at discharge. Treated for UTI, follow up in [facility] and urinary retention follow up clinic. He was discharged on 05/15. On 05/18, patient contacted Dr. Quintanilla with persistent pain and running out of oxycodone. An additional 20 tablets were sent to his local pharmacy. On 05/19, patient reached out to Dr. Quintanilla reporting persistent pain, decreasing oxy to 5 mg q4h, anddifficulty catheterizing himself. Reported 20-30 ml/drainage a day. Concerned he would run out of oxycodone by Thursday/Thursday. Brian Snowden is reporting approximately 20 ml of drain output per day; serosang/cloudy Patient underwent an IR sinogram today, which revealed: - Small presacral collection is well controlled by indwelling drain - No drain manipulation or exchange was performed. No immediate complication. - Flush catheter with 5 mL of normal saline twice daily. - Repeat sinogram in approximately 7-[address] Quintanilla was paged to see patient Heriberto reports: No nausea or vomiting. Tolerating a general diet. He is passing stool and flatus. He has a Ileostomy with no concerns. Urine output is NOT appropriate. - requiring I&O catheterizations qid - having difficulty advancing catheter into bladder, feels angulated or difficult to pass and reporting pain - contacted Urology for an urgent request to help with catheterizing, they are unable to see and said to send to ED if he needed help - Flomax prescribed/managed by Dr. Viera team - this was refilled Pain is NOT controlled with oral analgesics. - taking oxycodone 5 mg every 4 hours but does not seem to touch his pain - taking 1000 mg of acetaminophen every 6 hours - he is also prescribed Lyrica, lorazepam Pain level: constant 5, up to a 7 with any activity OBJECTIVE PHYSICAL EXAMINATION General Appearance: Alert and orientated. Rectal Exam: Performed in the left side lying position with Dr. 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 Quintanilla discussed patient with Dr. Viera. - It was decided to remove drain and see if pain and urinary symptoms improve. - He was prescribed a 7 day course of Augmentin - Attempted to get patient in to Urology today without success - Will present to the ED if symptoms persist or worsen - Follow up with Dr. Quintanilla/Janell on Thursday with an update - Start Tylenol and Ibuprofen staggering on a schedule and take oxycodone as needed - complete Macrobid for urine - discussed on-call provider if he has concerns over the weekend Heriberto is doing poorly postoperatively. We discussed the operative findings and expected course from this point and the patient expressed understanding. All questions were answered. The patient will contact us if he has any additional questions or concerns. Follow up: cancer follow up with medical oncology in [place]. 05/23/2024 documented in this encounter Plan of Treatment Upcoming Encounters Date Type Department Care Team (Late st Contact Info) Description 06/01/2024 9:30 AM CDT Clinical Support Division of Colon and Rectal Surgery in [place], [place] [address] [place] [phone] Armida Bullock APRN, C.N.P., M.S.N. [address] [place] [phone] 06/07/2024 9:20 AM CDT Lab Department of Infusion Therapy in [place], [place] [address] [place] [phone] Mariluz Soler M.D. [address] [place] [phone] 06/07/2024 11:20 AM CDT Office Visit Department of Oncology in [place], [place] [address] [place] [phone] Mariluz Soler M.D. [address] [place] [phone] 06/07/2024 1:00 PM CDT Infusion Department of Oncology in [place], [place] [address] [place] [phone] Mariluz Soler M.D. [address] [place] [phone] 06/17/2024 8:30 AM CDT Appointment Department of Laboratory Medicine and Pathology, [facility], in [place], [place] [address] [place] [phone] Anny Mcneill M.D. [address] [place] [phone] 06/17/2024 9:00 AM CDT Lab Department of Infusion Therapy in [place], [place] [address] [place] [phone] Anny Mcneill M.D. [address] [place] [phone] 06/17/2024 10:45 AM CDT Procedure visit Department of Urology in [place], [place] [address] [place] [phone] Anny Mcneill M.D. [address] [place] [phone] 06/17/2024 1:45 PM CDT Comprehensive Visit Department of Urology in [place], [place] [address] [place] [phone] Ayesha Romero P.A.-C. [address] [place] [phone] 06/17/2024 4:15 PM CDT Comprehensive Visit Department of Urology in [place], [place] [address] [place] [address] Scotty Tom APRN, C.N.P. [address] [place] [phone] Scheduled Orders Name Type Priority Associated Diagnoses Orde r Schedule Stomal Therapy GI Routine Ileostomy Status (HCC) Expected: 05/20/2024, Expires: 08/20/2025 Scheduled Referrals Name Type Priority Associated Diagnoses Orde r Schedule Colon and Rectal Surgery office visit (clinic) Outpatient Referral Routine Expected: 05/27/2024 (Approximate), Expires: 08/20/2025 documented as of this encounter Goals Goal Patient Goal Type Associated Problems Recent Progress Patient-Stated? Author Eat a balanced, healthy diet Diet Worsening( 11:49 AM CDT) Yes [place], Nadia Boone R.N. Note: 02/14/20 - Has one regular meal daily (supper), otherwise not as hungry and snacks on fruit in AM, chips in evening. Will readdress his dietary goals and see if this makes a difference in his mood. Read Managing My Depression General Improving( 11:43 AM CDT) Yes [place], Nadia Boone R.N. Note: P. 46-48 Create a relapse prevention plan. Spend time with my dog again. General On track( 020 11:43 AM CDT) Yes [place], Nadia Boone R.N. Have some time to himself regularly. General On track( 11:47 AM CDT) Yes [place], Nadia Boone R.N. Note: 01/24/20 - More structure to his day. 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 Recognizing he needs more personal time. Meet with therapist regularly General On track( 11:43 AM CDT) Yes [place], Nadia Boone R.N. Note: Dr. Pavan Sorensen, with [employer] in [place], [place]. Take your medication every day Lifestyle On track( 11:49 AM CDT) No [place], Nadia Boone R.N. Note: Increased Wellbutrin to 300 mg daily 02/09/20. PHQ-9 Total Score (max 27) < 5 Symptom Management 3(04/06/2024 7:51 PM CDT) No [place], Nadia Boone R.N. Note: Enrollment PHQ9=18 on 08/16/19 Patient goals at enrollment: 1. I'd like to have my depression be less intense. 2. I'd like to learn some coping strategies. 3. 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 [address] [place] [phone] PCP - General 03/04/24 Roger Sorensen Therapist 02/14/20 documented as of this encounter
--- OUTSIDE RECORDS SUMMARY | 2024-05-25 00:03 | XMS_ITS | Encounter Summary ---
Author Organization [facility] Address [address] [place] [address] Care Team Providers Care Account Engineer Name Role Phone Kayla Rowland APRN, C.N.P. Primary Care Provide r Reason for Visit * Reason Comments Med Refill Encounter Details Date Type Department Care Team (Late st Contact Info) Description 05/19/2024 Refill Department of Oncology in [place], [place] [address] [place] [phone] Patsy Bowser APRN, C.N.P., M.S. [address] [place] [phone] Med Refill Social History Tobacco Use Types Packs/Day Years Used Date Smoking Tobacco: Former Cigarettes 1 - 08/18/2015 Smokeless Tobacco: Never Alcohol Use Standard Drinks/Week Comments Not Currently 0 (1 standard drink = 0.6 oz pur e alcohol) [facility] Utilities Answer Date Recorded In the past 12 months has [employer], gas, oil, or water [employer] threatened to shut off services in your [...] often do you attend chur ch or protestant services? Never 12/06/2021 Do you belong to any clubs o r organizations such as evangelical groups, unions, fraternal or athletic groups, or [...] Answer Date Recorded PHQ-2 Score 0 04/06/2024 [facility] Questionnaire Answer Date [...] your living situation today? I have a [facility] place to live 05/12/2024 Education Answer Date Recorded What is the highest level of school you have completed or the highest degree you have received? 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 [address] [place] [phone] 06/07/2024 9:20 AM CDT Lab Department of Infusion Therapy in [place], [place] [address] [place] [phone] Mariluz Soler M.D. [address] [place] [phone] 06/07/2024 11:20 AM CDT Office Visit Department of Oncology in [place], [place] [address] [place] [phone] Mariluz Soler M.D. [address] [place] [phone] 06/07/2024 1:00 PM CDT Infusion Department of Oncology in [place], [place] [address] [place] [phone] Mariluz Soler M.D. [address] [place] [phone] 06/17/2024 8:30 AM CDT Appointment Department of Laboratory Medicine and Pathology, [facility] in [place], [place] [address] [place] [phone] Anny Mcneill M.D. [address] [place] [phone] 06/17/2024 9:00 AM CDT Lab Department of Infusion Therapy in [place], [place] [address] [place] [phone] Anny Mcneill M.D. [address] [place] [phone] 06/17/2024 10:45 AM CDT Procedure visit Department of Urology in [place], [place] [address] [place] [phone] Anny Mcneill M.D. [address] [place] [phone] 06/17/2024 1:45 PM CDT Comprehensive Visit Department of Urology in [place], [place] [address] [place] [address] Ayesha Romero P.A.-C. [address] [place] [phone] 06/17/2024 4:15 PM CDT Comprehensive Visit Department of Urology in [place], [place] [address] [place] [phone] Scotty Tom APRN, C.N.P. [address] [place] [phone] documented as of this encounter Goals Goal Patient Goal Type Associated Problems Recent Progress Patient-Stated? Author Eat a balanced, healthy diet Diet Worsening( 11:49 AM CDT) Yes [place], Nadia Boone R.N. Note: 02/14/20 - Has one regular meal daily (supper), otherwise not as hungry and snacks on fruit in AM, chips in evening. Will readdress his dietary goals and see if this makes a difference in his mood. Read Managing My Depression General Improving( 11:43 AM CDT) Yes Hoover, Nadia Boone R.N. Note: P. 46-48 Create a relapse prevention plan. Spend time with my dog again. General On track( 11:43 AM CDT) Yes Hoover, Michael McgheeN. Have some time to himself regularly. General On track( 11:47 AM CDT) Yes Hoover, Nadia Boone R.N. Note: 01/24/20 - More structure to his day. 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 Recognizing he needs more personal time. Meet with therapist regularly General On track( 11:43 AM CDT) Yes Hoover, Nadia Boone R.N. Note: Dr. Pavan Sorensen, with [facility] [employer] in [place], [place]. Take your medication every day Lifestyle On track( 020 11:49 AM CDT) No Nadia Nickerson R.N. [...] documented as of this encounter Care Teams Account Engineer Relationship Specialty Start Date End Date Kayla Rowland APRN, C.N.P. [address] [place] [phone] PCP - General 03/04/24 Roger Sorensen Therapist 02/14/20 documented as of this encounter
--- OUTSIDE RECORDS SUMMARY | 2024-05-25 00:03 | XMS_ITS | Encounter Summary ---
Author Organization [facility] Address [address] [place] [id number] Care Team Providers Care Cnc Machine Operator Name Role Phone Kayla Rowland APRN, C.N.P. 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 [address] [place] [phone] Rst Onc Rogo [address] [place] [phone] Referral ID Status Reason Start Date Expiration Date V isits Requested Visits Authorized [id number] Authorized 02/11/2024 10/18/2024 24 [id number] Encounter Details Date Type Department Care Team (Late st Contact Info) Description 05/23/2024 10:40 AM CDT Office Visit Department of Oncology in [place], [place] [address] [place] [phone] Patsy Bowser APRN, C.N.P., M.S. 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 - 05/23/2024 10:40 AM CDT LOCAL ONCOLOGIST No care team foreman to display [facility]IMARY [facility] Marin Corral M.D., Ph.D. CHIEF COMPLAINT / REASON FOR VISIT Heriberto Snowden is a 43 y.o. 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 He sought medical attention for these symptoms and had a colonoscopy that was attempted on September 01. Tumor was found in the sigmoid colon and the scope could not pass the tumor, 09/01/2023 Biopsy/Pathology Review of Outside Path Colon, sigmoid, mass at 18 cm, biopsy ([id number]; 09/01/2023): Invasive moderately differentiated adenocarcinoma arising in a background of tubulovillous adenoma with high-grade dysplasia. Submitted immunostains show intact expression of DNA mismatch repair enzymes (MLH1, MSH2, MSH6, and PMS2). 09/04/[address] CAP- Short segment annular wall thickening rectosigmoid junction likely represents patient's known coloncarcinoma. There is adenopathy in the adjacent mesocolon consistent with malignant locoregional disease. Multiple heterogeneously enhancing lesions in the liver are highly suspicious for metastatic disease, given patient's primary carcinoma. Indeterminate scattered 2-3 mm solid pulmonary nodules. Thyroid nodules measuring up to 5.3 cm on the left. Consider further assessment with thyroid ultrasound. 09/11/2023 Biopsy/Pathology Liver biopsy A. Liver, Mass, fine needle aspiration (smears/core biopsy): Positive for malignancy. Metastatic adenocarcinoma consistent with patient's known colonic origin. Immunohistochemical stains were performed at [facility] (block A1). KRT7 is negative while KRT20 and SATB2 are both positive, supporting the diagnosis. 09/14/2023 Critical Imaging MRI liver 1. At least 17 lesions are present within both hepatic lobes consistent with patient's biopsy-proven metastatic disease. 2. Partially visualized rectosigmoid junction mass. 09/17/2023 Tumor Board Plan established at the Colorectal Multidisciplinary Tumor Board: Plan: MRI rectal staging protocol, CEA Port-A-Cath placement Gardant 360 and Tempus testing of tissue FOLFOXIRI and bevacizumab Liver surgery consultation upon return review with imaging to discuss potential options 09/22/2023 Other MRI pelvis rectal staging protocol: IMPRESSION: Primary Tumor Location: Upper MR Stage: T3c N+ MRF: Involved (primary tumor margin within 1 mm of MRF) Sphincter involvement: Absent Suspicious extra mesorectal lymph nodes: Absent EMVI: Present. CEA 7.2 09/25/2023 - 02/12/2024 Chemotherapy FOLFOXIRI + Bevacizumab ( Fluorouracil / Leucovorin / Oxaliplatin / Irinotecan / Bevacizumab ) Start Date: 09/25/2023 09/25/2023 Genetic Testing and Tumor Genotyping Negative germline genetic testing in 2022; CustomNext: Cancer panel + RNAinsight including genes related to colorectal cancer through [facility]. 11/19/2023 Other After 4 cycles FOLFOXIRI and bevacizumab repeat CT CA P done showin. Stable pulmonary nodules. 2. Unchanged indeterminant sclerotic lesion in the left anterior third rib IMPRESSION: 1. Stable rectosigmoid mural thickening. 2. Moderately decreased multiple malignant lymph nodes in the mesorectal, superior rectal, and inferior mesenteric regions. 3. Moderately decreased multiple hepatic metastases. 11/23/[address] Viera of hepatobiliary surgery with recommendations to complete an additional 4 cycles of FOLFOXIRI and bevacizumab then reassess for consideration of RIP pump placement through clinical trial. 01/20/[address] cap: IMPRESSION: 1. No CT evidence of new thoracic metastases. 2. Solid noncalcified pulmonary nodules have not substantially changed since 09/04/2023. IMPRESSION: 1. Conventional vascular anatomy in the upper abdomen, with the common hepatic artery arising from the celiac axis and supplying the both hepatic lobes. 2. Slight further decrease in size of hepatic metastases and mildly improved mesorectal and superior rectal lymphadenopathy. MRI abd: IMPRESSION: 1. Decreased size of multiple hepatic metastases. No new lesions identified. Decision made to move forward with surgical resection and placement of RIP pump 03/16/2024 Other Colonoscopy: Post-op Diagnoses: - Partially obstructing tumor in the recto-sigmoid colon. This appears to have significantly improved compared to pre-chemotherapy endoscopy reports. Mass was circumferential but able to be traversed without need for dilation with the standard adult colonoscope. Biopsied. - One 5 mm polyp in the transverse colon, removed with a cold snare. Resected and retrieved. - The examination was otherwise normal on direct and retroflexion views. FINAL DIAGNOSIS A. Colon, Recto-sigmoid, endoscopic biopsy: Colonic mucosa with focal prolapse change. No dysplasia. B. Colon, Descending, endoscopic biopsy: Tubular adenoma, low grade dysplasia. 03/21/[address] cap: - Improving hepatic metastases. No new or progressive lesions. -The rectosigmoid primary lesion is no longer identifiable. Locoregional lymphadenopathy has improved. - Two new indeterminate pulmonary nodules measuring [address] follow-up is recommended. - Additional findings, including multiple additional pulmonary nodules, have not significantly changed from 01/19/2023. CEA: 1.3 03/23/2024 - 03/25/2024 Radiation Therapy Radiation Treatment Progress Summary Treatment Course: 1xRectum Plan ID Fractions Dose / Fraction (cGy) Dose Treated (cGy) Dose Planned (cGy) First Treatment Last Treatment Elapsed Days [id number] 500 1500 2500 03/23/2024 03/25/2024 2 Course Summary 03/23/2024 03/25/2024 2 03/29/2024 Surgery and Procedures HEPATIC ARTERY INFUSION PUMP PLACEMENT., MULTIPLE WEDGE RESECTIONS LIVER., ULTRASOUND LIVER., ABLATION LESION LIVER., CHOLECYSTECTOMY., RESECTION LOW ANTERIOR WITH ANASTOMOSIS., CONSTRUCTION ILEOSTOMY., SIGMOIDOSCOPY FLEXIBLE FINAL DIAGNOSIS A. Portion of seminal vesicle, left, excision: Negative for tumor. B. Rectum and sigmoid colon, low anterior resection: Residual moderately differentiated invasive adenocarcinoma within a 3.8 cm tumor bed, located in the rectum straddling the peritoneal reflection. The tumor extends into the perirectal adipose tissue and invades anterior serosa. The surgical resection margins are negative for tumor. Multiple (5) perirectal tumor deposits are identified. Multiple (3 of 54) lymph nodes are positive for metastatic carcinoma. See synoptic report. C. Soft tissue, colon anastomotic rings, excision: Segment of colon without diagnostic abnormality; negative for tumor. D. Gallbladder, cholecystectomy: Chronic cholecystitis and cholesterolosis; negative for tumor. E. Liver, portion caudate, wedge resection: Involved by metastatic adenocarcinoma (1.1 x 0.8 x 0.7 cm). Surgical margins are negative for tumor. F. Liver, segment NELLY, wedge resection: Involved by metastatic colorectal adenocarcinoma (1.5 x 1 x 0.9 cm). Surgical margins are negative for tumor. G. Liver, segment VII, wedge resection: Involved by metastatic colorectal adenocarcinoma (1.0 x 1 x 0.8 cm). Surgical margins are negative for tumor. H. Lymph nodes, hepatic artery, biopsy: A single (1) lymph node negative for metastatic carcinoma. I. Lymph node, portocaval, biopsy: A single (1) lymph node negative for metastatic carcinoma. J. Liver, segment VII No. 2, wedge resection: Hyalinized granuloma; negative for tumor. See comment 04/26/2024 - Chemotherapy RIP Intera IFL ( Irinotecan / Fluorouracil / Leucovorin ) Floxuridine / dexAMETHasone / Heparin Start Date: 04/26/2024 Malignant Neoplasm Of Rectum (HCC) 03/23/2024 - 03/25/2024 Radiation Therapy Radiation Treatment Progress Summary Treatment Course: 1xRectum Plan ID Fractions Dose / Fraction (cGy) Dose Treated (cGy) Dose Planned (cGy) First Treatment Last Treatment Elapsed Days [id number] 500 1500 2500 03/23/2024 03/25/2024 2 Course Summary 03/23/2024 03/25/2024 2 03/29/2024 Surgery and Procedures HEPATIC ARTERY INFUSION PUMP PLACEMENT., MULTIPLE WEDGE RESECTIONS LIVER., ULTRASOUND LIVER., ABLATION LESION LIVER., CHOLECYSTECTOMY., RESECTION LOW ANTERIOR WITH ANASTOMOSIS., CONSTRUCTION ILEOSTOMY., SIGMOIDOSCOPY FLEXIBLE FINAL DIAGNOSIS A. Portion of seminal vesicle, left, excision: Negative for tumor. B. Rectum and sigmoid colon, low anterior resection: Residual moderately differentiated invasive adenocarcinoma within a 3.8 cm tumor bed, located in the rectum straddling the peritoneal reflection. The tumor extends into the perirectal adipose tissue and invades anterior serosa. The surgical resection margins are negative for tumor. Multiple (5) perirectal tumor deposits are identified. Multiple (3 of 54) lymph nodes are positive for metastatic carcinoma. See synoptic report. C. Soft tissue, colon anastomotic rings, excision: Segment of colon without diagnostic abnormality; negative for tumor. D. Gallbladder, cholecystectomy: Chronic cholecystitis and cholesterolosis; negative for tumor. E. Liver, portion caudate, wedge resection: Involved by metastatic adenocarcinoma (1.1 x 0.8 x 0.7 cm). Surgical margins are negative for tumor. F. Liver, segment NELLY, wedge resection: Involved by metastatic colorectal adenocarcinoma (1.5 x 1 x 0.9 cm). Surgical margins are negative for tumor. G. Liver, segment VII, wedge resection: Involved by metastatic colorectal adenocarcinoma (1.0 x 1 x 0.8 cm). Surgical margins are negative for tumor. H. Lymph nodes, hepatic artery, biopsy: A single (1) lymph node negative for metastatic carcinoma. I. Lymph node, portocaval, biopsy: A single (1) lymph node negative for metastatic carcinoma. J. Liver, segment VII No. 2, wedge resection: Hyalinized granuloma; negative for tumor. See comment 04/26/2024 - Chemotherapy RIP Intera IFL ( Irinotecan / Fluorouracil / Leucovorin ) Floxuridine / dexAMETHasone / Heparin Start Date: 04/26/2024 Interval History by RN: Mr. Snowden returns for evaluation. Unfortunately he continues to struggle with tailbone pressure hand pain rating it a 6/10 throughout the day. This can increase as high as 8to 9/10. His drain was removed on Thursday and he has completed his antibiotics for a UTI. He continues to use self cathing for urinating approximately 4 times a day but is struggling with this also causing discomfort. He has been taking 2 tablets of oxycodone at a time but this does not adequately control the pain. He is having difficulty walking and bending over putting his shoes on. He is due tostart Augmentin today following the drain removal. He continues to alternate ice and heat to his but tock area. His ileostomy is functioning well. Due to pain he is struggling with sleep also. He is feeling overwhelmed and somewhat despondent today due to pain control and anxious about restarting chemotherapy Interval History by POURING CRANE OPERATOR: I had the opportunity to see and evaluate the patient. I agree with the history of present illness as documented by nurse Rena Mccray. Allergies, Current medications, Past medical/surgical history, Family history, and Social history were reviewed. REVIEW OF SYSTEMS Besides what is mentioned in the History of Present Illness, the remainder of ROS is otherwise negative OBJECTIVE Ht 172.2 cm Wt 101 kg BMI 33.89 kg/m?? PHYSICAL EXAM General: Patient is well-appearing in no acute distress. ECOG performance status of 0 Skin: No rashes or lesions noted. Eyes: PERRL, EOMI, no scleral icterus Mental Status: Answering all questions appropriately, normal affect. Neurologic: Grossly non-focal DIAGNOSTICS I reviewed the pertinent laboratory and diagnostic data. ASSESSMENT / PLAN #1 Metastatic rectal cancer I have reviewed all above in depth with Mr. Snowden in his partner. Overall, he has had a rough postoperative course with increasing pelvic pain. Fortunately his drain has been removed moved and there is no sign of infection. Although he still has pain he has been on multiple agents including oxycodone, Lyrica and Robaxin none of which have made significant improvement in his level of pain. He does find alternating Tylenol and ibuprofen to be the most helpful. We did discuss the psychological component to his pain as well. For now, as he has struggled some what in the last few weeks and his circulating DNA is negative, we have decided that we will proceed with heparin and saline only and no IV systemic therapy or FUDR today. He will return in 2 weeks and at that juncture we will decide whether or not we will proceed with the additional therapy versus glycerin in his a FUDR pump. In 2 weeks is the week he will be getting so we will be cognizant of our treatment decisions as well based on timing for his upcoming nodules. If there is new concerns or questions he knows not to hesitate to contact me otherwise will plan onseeing him back in 2 weeks. He is comfortable with this plan. PATIENT EDUCATION Ready to learn, no apparent learning barriers were identified; learning preferences include listening. Explained diagnosis and treatment plan; patient expressed understanding of the content. ADMINISTRATIVE BILLING I spent 60 minutes face to face and non-face to face caring for the patient today. documented in this encounter Plan of Treatment Upcoming Encounters Date Type Department Care Team (Late st Contact Info) Description 06/01/2024 9:30 AM CDT Clinical Support Division of Colon and Rectal Surgery in [address] [phone] Armida Bullock APRN, C.N.Murtaza., M.S.N. [address] [place] [phone] 06/07/2024 9:20 AM CDT Lab Department of Infusion Therapy in [address] [phone] Mariluz Soler M.D. [address] [place] [phone] 06/07/2024 11:20 AM CDT Office Visit Department of Oncology in [address] [phone] Mariluz Soler M.D. [address] [place] [phone] 06/07/2024 1:00 PM CDT Infusion Department of Oncology in [address] [phone] Mariluz Soler M.D. [address] [place] [phone] 06/17/2024 8:30 AM CDT Appointment Department of Laboratory Medicine and Pathology, [facility], in [place], [place] [address] [place] [phone] Anny Mcneill M.D. [address] [place] [phone] 06/17/2024 9:00 AM CDT Lab Department of Infusion Therapy in [place], [place] [address] [place] [phone] Anny Mcneill M.D. [address] [place] [phone] 06/17/2024 10:45 AM CDT Procedure visit Department of Urology in [place], [place] [address] [place] [phone] Anny Mcneill M.D. [address] [place] [phone] 06/17/2024 1:45 PM CDT Comprehensive Visit Department of Urology in [place], [place] [address] [place] [phone] Ayesha Romero, P.A.-C. [address] [place] [phone] 06/17/2024 4:15 PM CDT Comprehensive Visit Department of Urology in [place], [place] [address] [place] [phone] Scotty Tom, CONSUMER INSIGHTS INTERN, C.N.P. [address] [place] [phone] documented as of this encounter Goals Goal Patient Goal Type Associated Problems Recent Progress Patient-Stated? Author Eat a balanced, healthy diet Diet Worsening( 11:49 AM CDT) Yes [place], Nadia Boone R.N. Note: 02/14/20 - Has one regular meal daily (supper), otherwise not as hungry and snacks on fruit in AM, chips in evening. Will readdress his dietary goals and see if this makes a difference in his mood. Read Managing My Depression General Improving( 11:43 AM CDT) Yes [place]Nadia R.N. Note: P. 46-48 Create a relapse prevention plan. Spend time with my dog again. General On track( 11:43 AM CDT) Yes [place], Nadia Boone R.N. Have some time to himself regularly. General On track( 11:47 AM CDT) Yes [place], Michael McgheeN. Note: 01/24/20 - More structure to his day. 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 Recognizing he needs more personal time. Meet with therapist regularly General On track( 11:43 AM CDT) Yes [place], Nadia Boone R.N. Note: Dr. Pavan Sorensen, with [facility] in [place], [place]. Take your medication every day Lifestyle On track( 11:49 AM CDT) No [place]ia R.N. Note: Increased Wellbutrin to 300 mg daily 02/09/20. PHQ-9 Total Score (max 27) < 5 Symptom Management 3(04/06/2024 7:51 PM CDT) No [place], Nadia Boone, R.N. Note: Enrollment PHQ9=18 on 08/16/19 Patient goals at enrollment: 1. I'd like to have my depression be less intense. 2. I'd like to learn some coping strategies. 3. 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 [address] [place] [phone] PCP - General 03/04/24 Rogre Sorensen Therapist 02/14/20 documented as of this encounter
--- OUTSIDE RECORDS SUMMARY | 2024-05-25 00:03 | XMS_ITS | Encounter Summary ---
Author Organization [facility] Address [address] [place] [address] Care Team Providers Care Lvn Name Role Phone Kayla Rowland APRN C.N.P. 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 [address] [place] [address] [facility] Referral ID Status Reason Start Date Expiration Date Visits Re quested Visits Authorized [id number] Closed 05/17/2024 05/17/2025 1 1 Reason for Visit * Outpatient (Routine) - Closed Specialty Diagnoses / Procedures Referred By Keya olivares Referred To Contact Radiology Diagnoses Malignant Neoplasm Of Rectum (HCC) Secondary Malignant Neoplasm Liver (HCC) Abdominal Pain Procedures IR Abscess Drain Check Tej Quintanilla M.B., ChSolitarioB., M.P.H. [address] [place] [phone] [facility] Referral ID Status Reason Start Date Expiration Date Visits Re quested Visits Authorized [id number] Closed 05/17/2024 05/17/2025 1 1 Encounter Details Date Type Department Care Team (Latest Contact Info) Description 05/20/2024 7:12 AM CDT - 05/20/2024 8:18 AM CDT Hospital Encounter Department of Radiology in [place], [place] [address] [place] [phone] Tej Quintanilla M.B., Ch.B., M.P.H. [address] [place] [phone] Jason Silveira M.D. [address] [place] [phone] Bob Petit M.D. [address] [place] [phone] Malignant Neoplasm Of Rectum (HCC); Secondary Malignant Neoplasm Liver (HCC); Abdominal Pain Discharge Disposition: Home or Self Care Social History Tobacco Use Types Packs/Day Years Used Date Smoking Tobacco: Former Cigarettes 1 - 08/18/2015 Smokeless Tobacco: Never Alcohol Use Standard Drinks/Week Comments Not Currently 0 (1 standard drink = 0.6 oz pur e alcohol) [facility] Utilities Answer Date Recorded In the past 12 months has [employer], gas, oil, or water [employer] threatened to shut off services in your [...] often do you attend chur ch or buddhism services? Never 12/06/2021 Do you belong to any clubs o r organizations such as mormon groups, unions, fraternal or athletic groups, or [...] Answer Date Recorded PHQ-2 Score 0 04/06/2024 [facility] [place] [facility] - Occupational Stress [...] your living situation today? I have a [facility] place to live 05/12/2024 Education Answer Date Recorded What is the highest level of school you have completed or the highest degree you have received? 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 05/15/2024 amitriptyline 2 % ketamine 5 % lidocaine 5 % in lipodermIndications: Abdominal Pain Apply topically 4 (four) times a day as needed (pain around drain site). Apply around drain site. 30 g 05/15/2024 amLODIPine (NORVASC) 5 mg tablet TAKE 1 TABLET (5 MG TOTAL) BY MOUTH DAILY. 90 tablet 1 02/08/2024 buPROPion XL (WELLBUTRIN XL) 300 mg 24 hr tablet Take 1 tablet (300 mg total) by mouth every morning. 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 Take daily for 3 days, starting the day after chemotherapy ends of each cycle. 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 Apply to the scalp up to twice daily as needed for flares. 09/23/2023 lamoTRIgine (LaMICtaL) 200 mg tablet Take 200 mg by mouth daily. lidocaine (Lidoderm) 5 % adhesive patch,medicated Place 1 patch on the skin daily as needed (pain). Apply to area of most pain. 05/15/2024 lidocaine-prilocaine (EMLA) 2.5-2.5 % cream Apply 1 Application topically as needed for pain. Wearing gloves, gently squeeze prescribed amount of EMLA?? directly onto intact skin of desired numbing site. Do not rub in. Cover topical Lidocaine/Prilocain e (EMLA??) with occlusive dressing, to prevent patient from accidental ingestion or eye contact. Apply 60 minutes prior to indicated procedure. 30 g 04/03/2024 LORazepam (Ativan) 0.5 mg tablet Take 1 tablet (0.5 mg total) by mouth 3 (three) times a day as needed for anxiety. 30 tablet 3 04/19/2024 medical cannabis oil inhalation Inhale as needed (nauesa and anxiety). THC component: 30 mg Patient does not need while in the hospital methocarbamoL (Robaxin) 500 mg tablet Take 2 tablets (1,000 mg total) by mouth 4 (four) times a day as needed for muscle spasms. 35 tablet 05/15/2024 mirtazapine (Remeron) 30 mg tablet Take 30 mg by mouth at bedtime. 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 May take dose early if needed. 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 30 tablet 3 04/26/2024 04/26/2025 oxyCODONE (Roxicodone) 5 mg immediate release tabletIndications:Ac red devil Pain Exception Take 1-2 tablets (5-10 mg) by mouth every 3 hours as needed for moderate or severe pain. Pain rated 4-6 of 10, take 1 tablet. For pain rated greater than 7 of 10, take 2 tablets. Wean off this medication within 1 week of discharge. 20 tablet 05/18/2024 oxyCODONE (Roxicodone) 5 mg immediate release tabletIndications:Ch ronic Pain/Nonacute Pain Take 1-2 tablets (5-10 mg total) by mouth every 4 (four) hours as needed for moderate pain or score 4-6 of 10 Indication: Chronic Pain/Nonacute Pain. 60 tablet 05/19/2024 pantoprazole (PROTONIX) 40 mg EC tablet Take 1 tablet (40 mg total) by mouth every morning before breakfast. 30 tablet 1 04/03/2024 pregabalin (Lyrica) 25 mg capsule Take 1 capsule (25 mg total) by mouth 3 (three) times a day. Refills, if needed, should be provided by your PCP. 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 30 tablet 3 04/26/2024 04/26/2025 prochlorperazine (COMPAZINE) 5 mg tablet Take 1 tablet (5 mg total) by mouth every 6 (six) hours as needed for nausea or vomiting. 8 tablet 04/03/2024 sildenafiL (Viagra) 50 mg tablet Take 1 tablet (50 mg total) by mouth daily as needed for erectile dysfunction. 10 tablet 05/04/2024 tacrolimus (PROTOPIC) 0.1 % ointment Apply 1 Application topically 2 (two) times a day as needed (psoriasis). 09/23/2023 triamcinolone (KENALOG) 0.1 % creamIndications:Pso riasis Apply to affected area 1-2 times daily as needed. 60 g 11 06/01/2023 nitrofurantoin monohydrate (Macrobid) 100 mg capsuleIndications:Aj camarena UTI, Non-Catheter Take 1 capsule (100 mg total) by mouth 2 (two) times a day for 13 doses Indications: Lower UTI, Non-Catheter. 13 capsule 05/15/2024 05/22/2024 documented as of this encounter Procedure Notes * Jason Silveira M.D. - 05/20/2024 8:06 AM CDT PATIENT DISPOSITION Return to Outpatient Unit for recovery. Discharge patient when discharge criteria met. POST-PROCEDURE DIAGNOSIS Pelvic collection PROCEDURE PERFORMED AND DESCRIPTION sinogram PROCEDURE DETAILS See Radiology Report SPECIMENS REMOVED None FINDINGS Small presacral collection is well controlled by indwelling drain. PRIMARY PROCEDURALIST Dr. Jason Silveira ASSISTANTS None COMPLICATIONS None. DRAINS None. IMPLANTS None. ANESTHESIA None. FLUIDS NOne ESTIMATED BLOOD LOSS 0 mL CURRENT MEDICATIONS No Medication Changes FOLLOW-UP LETTER None. MAY RETURN TO WORK Not applicable PATIENT INSTRUCTIONS For your next scheduled appointment documented in this encounter Plan of Treatment Upcoming Encounters Date Type Department Care Team (Late st Contact Info) Description 06/01/2024 9:30 AM CDT Clinical Support Division of Colon and Rectal Surgery in [address] [phone] Armida Bullock APRN, C.N.P., M.S.N. [address] [place] [phone] 06/07/2024 9:20 AM CDT Lab Department of Infusion Therapy in [address] [phone] Mariluz Soler M.D. [address] [place] [phone] 06/07/2024 11:20 AM CDT Office Visit Department of Oncology in [address] [phone] Mariluz Soler M.D. [address] [place] [phone] 06/07/2024 1:00 PM CDT Infusion Department of Oncology in [address] [phone] Mariluz Soler M.D. [address] [place] [phone] 06/17/2024 8:30 AM CDT Appointment Department of Laboratory Medicine and Pathology, [facility], in [address] [phone] Anny Mcneill M.D. [address] [place] [phone] 06/17/2024 9:00 AM CDT Lab Department of Infusion Therapy in [place], [place] [address] [place] [phone] Anny Mcneill M.D. [address] [place] [phone] 06/17/2024 10:45 AM CDT Procedure visit Department of Urology in [place], [place] [address] [place] [phone] Anny Mcneill M.D. [address] [place] [phone] 06/17/2024 1:45 PM CDT Comprehensive Visit Department of Urology in [place], [place] [address] [place] [phone] Ayesha Romero, PSolitarioA.-C. [address] [place] [phone] 06/17/2024 4:15 PM CDT Comprehensive Visit Department of Urology in [place], [place] [address] [place] [phone] Scotty Tom, CAR HIKER, C.N.P. [address] [place] [phone] documented as of this encounter Goals Goal Patient Goal Type Associated Problems Recent Progress Patient-Stated? Author Eat a balanced, healthy diet Diet Worsening( 11:49 AM CDT) Yes [place], Nadia Boone R.N. Note: 02/14/20 - Has one regular meal daily (supper), otherwise not as hungry and snacks on fruit in AM, chips in evening. Will readdress his dietary goals and see if this makes a difference in his mood. Read Managing My Depression General Improving( 11:43 AM CDT) Yes [place], Nadia Boone RSolitarioN. Note: P. 46-48 Create a relapse prevention plan. Spend time with my dog again. General On track( 11:43 AM CDT) Yes Krishan, Nadia Boone R.N. Have some time to himself regularly. General On track( 11:47 AM CDT) Yes [place], Tammy Mcghee.N. Note: 01/24/20 - More structure to his day. 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 Recognizing he needs more personal time. Meet with therapist regularly General On track( 11:43 AM CDT) Yes [place], Nadia Boone R.N. Note: Dr. Pavan Sorensen, with [facility] in [place], [place]. Take your medication every day Lifestyle On track( 11:49 AM CDT) No [place], Nadia Boone R.N. Note: Increased Wellbutrin to 300 mg daily 02/09/20. PHQ-9 Total Score (max 27) < 5 Symptom Management 3(04/06/2024 7:51 PM CDT) No [place], Nadia Boone R.N. Note: Enrollment PHQ9=18 on 08/16/19 Patient goals at enrollment: 1. I'd like to have my depression be less intense. 2. I'd like to learn some coping strategies. 3. I'd like to learn how to keep my depression from flaring back again documented as of this encounter Procedures Procedure Name Priority Date/Time Associated Diagnosis Comments IR ABSCESS DRAIN CHECK RAD - Routine (most inpatients and all outpatients) 05/20/2024 8:08 AM CDT Malignant Neoplasm Of Rectum (HCC) Secondary Malignant Neoplasm Liver (HCC) Abdominal Pain documented in this encounter Results * IR Abscess Drain Check (05/20/2024 8:08 [...] placed in the right lateral decubitus position. Clinical Documentation Developer image showed a pigtail catheter projecting over [...] was placed in the right lateral decubitus position.Clinical Documentation Developer image showed a pigtail catheter projecting over [...] sinogram in approximately 7-10 days. EP Tej Lee Ch.B., M.P.H. IMG IR PROCEDURES documented in this encounter Visit Diagnoses Diagnosis Malignant Neoplasm Of Rectum (HCC) Secondary Malignant Neoplasm Liver (HCC) Abdominal Pain documented in this encounter Administered Medications Inactive Administered Medications - up to 3 most recent administrations Medication Order MAR Action Action Date Dose Rate Site iohexoL 300 mg iodine/mL solution (Omnipaque) As needed, Starting on Thu05/20/24 at 0808, Intra-Op Given 05/20/2024 8:08 AM CDT 10 mL documented in this encounter Active and Recently Administered Medications Times are shown in CDT. PRN Medication Order 05/18/2024 05/19/2024 05/20/2024 iohexoL 300 mg iodine/mL solution (Omnipaque) (COMPLETED) As needed, Starting on Thu05/20/24 at 0808, Intra-Op 0808 (Given - Provid er: Jason Silveira M.D.) documented in this encounter Additional Health Concerns Infection Onset Date Last Indicated Resolved Time Protective Environment 04/26/2024 04/26/2024 Assessment Noted Time PHQ-9 Depression Total Score: 3 04/06/20 24 7:51 PM CDT documented as of this encounter Care Teams Lvn Relationship Specialty Start Date End Date Kayla Rowland APRN, C.N.P. [address] [place] [phone] PCP - General 03/04/24 Roger Sorensen Therapist 02/14/20 documented as of this encounter
--- OUTSIDE RECORDS SUMMARY | 2024-05-25 00:03 | XMS_ITS | Encounter Summary ---
Author Organization [facility] Address [address] [place] [phone] Care Team Providers Care Data Operations Leader Name Role Phone Kayla Rowland APRN, C.N.P. Primary Care Provide r Encounter Details Date Type Department Care Team (Late st Contact Info) Description 05/20/2024 Orders Only Division of Colon and Rectal Surgery in [place], [place] [address] [place] [phone] Armida Bullock APRN, C.N.P., M.S.N. [address] [place] [phone] Social History Tobacco Use Types Packs/Day Years Used Date Smoking Tobacco: Former Cigarettes 1 - 08/18/2015 Smokeless Tobacco: Never Alcohol Use Standard Drinks/Week Comments Not Currently 0 (1 standard drink = 0.6 oz pur e alcohol) [facility] Utilities Answer Date Recorded In the past 12 months has [facility] [employer], oil, or water [employer] threatened to shut off services in your [...] often do you attend chur ch or restorationist services? Never 12/06/2021 Do you belong to any clubs o r organizations such as religious groups, unions, fraternal or athletic groups, or [...] Answer Date Recorded PHQ-2 Score 0 04/06/2024 [facility] Occupat ional Health - Occupational [...] the money to buy more. Never true 07/25/20 24 Within the past 12 months, t [...] your living situation today? I have a [facility] place to live 05/12/2024 Education Answer Date Recorded What is the highest level of school you have completed or the highest degree you have received? 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 [address] [place] [phone] 06/07/2024 9:20 AM CDT Lab Department of Infusion Therapy in [place], [place] [address] [place] [phone] Mariluz Soler M.D. [address] [place] [phone] 06/07/2024 11:20 AM CDT Office Visit Department of Oncology in [place], [place] [address] [place] [phone] Mariluz Soler M.D. [address] [place] [phone] 06/07/2024 1:00 PM CDT Infusion Department of Oncology in [place], [place] [address] [place] [phone] Mariluz Soler M.D. [address] [place] [phone] 06/17/2024 8:30 AM CDT Appointment Department of Laboratory Medicine and Pathology, [facility] in [place], [place] [address] [place] [phone] Anny Mcneill M.D. [address] [place] [phone] 06/17/2024 9:00 AM CDT Lab Department of Infusion Therapy in [place], [place] [address] [place] [phone] Anny Mcneill M.D. [address] [place] [phone] 06/17/2024 10:45 AM CDT Procedure visit Department of Urology in [place], [place] [address] [place] [phone] Anny Mcneill M.D. [address] [place] [phone] 06/17/2024 1:45 PM CDT Comprehensive Visit Department of Urology in [place], [place] [address] [place] [phone] Ayesha Romero P.A.-C. [address] [place] [phone] 06/17/2024 4:15 PM CDT Comprehensive Visit Department of Urology in [place], [place] [address] [place] [phone] Scotty Tom APRN, C.N.P. [address] [place] [phone] documented as of this encounter Goals Goal Patient Goal Type Associated Problems Recent Progress Patient-Stated? Author Eat a balanced, healthy diet Diet Worsening( 11:49 AM CDT) Yes [place], Nadia Boone R.N. Note: 02/14/20 - Has one regular meal daily (supper), otherwise not as hungry and snacks on fruit in AM, chips in evening. Will readdress his dietary goals and see if this makes a difference in his mood. Read Managing My Depression General Improving( 11:43 AM CDT) Yes [place], Nadia Boone R.N. Note: P. 46-48 Create a relapse prevention plan. Spend time with my dog again. General On track( 11:43 AM CDT) Yes [place], Michael McgheeN. Have some time to himself regularly. General On track( 11:47 AM CDT) Yes [place], Tammy Mcghee.N. Note: 01/24/20 - More structure to his day. Thankful for this time to bee worker. Recognizing he needs more personal time. Meet with therapist regularly General On track( 11:43 AM CDT) Yes [place], Nadia Boone R.N. Note: Dr. Pavan Sorensen, with [employer] in [place], [place]. Take your medication every day Lifestyle [...] documented as of this encounter Care Teams Data Operations Leader Relationship Specialty Start Date End Date Kayla Rowland APRN, C.N.P. [address] [place] [phone] PCP - General 03/04/24 Roger Sorensen Therapist 02/14/20 documented as of this encounter
--- OUTSIDE RECORDS SUMMARY | 2024-05-25 00:04 | XMS_ITS | Encounter Summary ---
Author Organization [facility] Address [address] [place] [id number] Care Team Providers Care Benefits Coordinator Name Role Phone Kayla Rowland APRN, C.N.P. Primary Care Provide r Reason for Visit * Reason Comments Post-op Problem * Auth/Cert (Routine) Specialty Diagnoses / Procedures Referred By Contac t Referred To Contact Diagnoses Pain Postoperative Abdominal Pain Procedures OBS TO INPT Referral ID Status Reason Start Date Expiration Date Visits Re quested Visits Authorized [id number] 1 1 Encounter Details Date Type Department Care Team (Late st Contact Info) Description 05/12/2024 3:23 PM CDT - 05/15/2024 1:36 PM CDT Hospital Encounter [facility], Fifth Floor [address] [place] [id number] Patsy Zhou M.D. [address] [place] [phone] Eugene Salas APRN, C.N.P. [address] [place] [phone] Radha Barrera M.D. [address] [place] [phone] Tej Quintanilla M.B., Ch.B., M.P.H. [address] [place] [phone] Pain Postoperative (Primary Dx); Abdominal Pain Discharge Disposition: Home or Self Care Social History Tobacco Use Types Packs/Day Years Used Date Smoking Tobacco: Former Cigarettes 1 - 08/18/2015 Smokeless Tobacco: Never Alcohol Use Standard Drinks/Week Comments Not Currently 0 (1 standard drink = 0.6 oz pur e alcohol) [facility] Utilities Answer Date Recorded In the past 12 months has e [employer], gas, oil, or water [employer] threatened to shut off services in [...] How often do you attend chur or taoist services? Never 12/06/2021 Do you belong to any clubs o r organizations such as methodist groups, unions, fraternal or athletic groups, or [...] Average Number of Drinks Not on file 02/18/2 022 Frequency of Binge Drinking Not on file 11/19 Overall Financial Resource Strain (CARDIA) Answe r Date Recorded How hard is it for you to pa y for the very basics like food, housing, medical care, and heating? Not very hard 12/06/2021 PHQ-2 Answer Date Recorded PHQ-2 Score 0 04/06/2024 [facility] - Occupational Stress Questionnaire Answer [...] Master's degree (e.g., MA, MS, Aba, MEd, INSURANCE BILLING SPECIALIST, GAMALIEL) 08/15/2019 Sex and Gender Information Value Date Recorded Sex Assigned at Male 09/09/2023 12:48 PM DEBT COLLECTOR Gender Identity Male 08/15/2019 2:16 PM CDT Sexual Orientation Straight 08/15/2019 2: 16 PM CDT documented as of this encounter Last Filed Vital Signs Vital Sign Reading Time Taken Comments Blood Pressure 128/85 05/15/2024 12:30 PM CDT Pulse 83 05/15/2024 12:30 PM CDT Temperature 36.9 ??C (98.4 ??F) 05/15/2024 12:30 PM C DT Respiratory Rate 18 05/15/2024 8:20 AM CDT Oxygen Saturation 96% 05/15/2024 12:30 PM CDT Inhaled Oxygen Concentration - - Weight 98.9 kg (218 lb 0.6 oz) 05/14/2024 5:38 P M CDT Height 170.2 cm (5' 7.01) 05/14/2024 5:38 PM CD T Body Mass Index 34.14 05/14/2024 5:38 PM CDT documented in this encounter Discharge Summaries * Blanche Goodrich APRN, C.N.P., D.N.P. - 05/15/2024 10:40 AM CDT DISCHARGE SUMMARY BRIEF OVERVIEW Hospital: [facility] Discharge Provider: Tej Quintanilla M.B. Primary Team: [facility] Colon and Rectal Surgery - [place] Primary Care Providers: Kayla Rowland APRN, C.N.P. (General) [address] [facility] [phone] Primary Care Provider Primary Care Provider Other Providers: Urology Admission Date: 05/12/2024 Discharge Date: 05/15/24 PRINCIPAL DIAGNOSIS Abdominal Pain SECONDARY DIAGNOSES Principal Problem: Abdominal Pain Active Problems: Hypertension Essential Primary Depression Major Recurrent Severe Without Psychotic Features (HCC) Malignant Neoplasm Of Rectum (HCC) Obesity Body Mass Index 30-39.9 Adult Ileostomy Status (HCC) Anxiety Psoriasis Gastroesophageal Reflux Disease Resolved Problems: * No resolved hospital problems. * DISCHARGE DISPOSITION Home or Self Care [1] ACTIVE ISSUES REQUIRING FOLLOW UP CANCER FOLLOW-UP - Please keep existing Oncology appointments on 05/23. FOLLOW-UP - You will return to see Dr. Quintanilla in clinic for evaluation and possible drain removal. See portal for details once scheduled. OUTPATIENT FOLLOW UP Scheduled Appointments 05/23/2024 8:15 AM INF ONC PORT DRAW [facility] 05/23/2024 10:40 AM Patsy Bowser APRN, C.N.Murtaza., M.S. Oncology 05/24/2024 7:30 AM ONC CHAIR CHEMO [facility] For appointment details refer to your Patient Appointment Guide. TEST RESULTS PENDING AT DISCHARGE Pending Labs Order Current Status Bacterial Culture, Aerobic + Susceptibility, Urine Preliminary result DETAILS OF HOSPITAL STAY REASON FOR ADMISSION Pain Postoperative Abdominal Pain HOSPITAL COURSE Patient is a 43 y.o. M recently admitted to [facility] for management of a presacral fluid abscess s/p IR drain placement 05/10/2024. He was discharged from the hospital yesterday and presented to the ED today with severe pain. CT abdomen pelvis obtained shows no acute findings with unchanged presacral abscess collection controlled by IR drain, however due to poorly controlled pain patient is being admitted to [facility]. Patient is s/p LAR with anastomosis and DLI as well as hepatic artery infusion pump placement and liver ablation/resections on March 29 for metastatic rectal cancer. PRIMARY DIAGNOSIS: Uncontrolled Pain PROCEDURE: N/A DRAINS: Interventional Radiology placed drain remains in place. Patient will follow-up in clinic with Dr. Quintanilla for evaluation and management, possible removal. ADDITIONAL DIAGNOSES/COMPLICATIONS/CHRONIC CONDITIONS ADDRESSED DURING HOSPITALIZATION: # Urinary retention # Urinary Tract Infection # Abdominal pain # Presacral discomfort s/p drain placement Pain medications titrated to effect including lidocaine patches and triple cream. Abdominal and presacral discomfort likely related from full bladder pushing against the drain. Patient either able tovoid but in little amounts or is not able to void on own, residual scan remained high and patient required multiple intermittent catheterizations to relieve pressure. Patient was taught how to perform self intermittent catheterizations. Urology also consulted in thesetting of urinary retention. Urology Recommendations: -Urinalysis positive for staph epidermis, prescribed Macrobid BID x 7 days -Patient should be instructed to CIC 4 times daily at home -Referrals placed for men's health and urinary retention follow up in clinic # History of intraabdominal abscess with drain placement Recent culture reviewed from abdominal fluid sample with bacteroides thetaiotaomicron/faecis and GNB, given patient has no leukocytosis or fever, the drain can be considered adequate source control. No need for antibiotics at dismissal. Drain remained at dismissal and will be removed on the next clinic visit. CONSULTS ORDERED DURING THIS ADMISSION IP CONSULT TO UROLOGY IP CONSULT TO OSTOMY CARE CONDITION AT DISCHARGE stable Discharge instructions were provided to the patient and caregiver(s). Total time spent in discharge services today: minutes. documented in this encounter Discharge Instructions * Attachments The following attachments cannot be sent through Care Everywhere. * Pregabalin (By mouth) ([place]) * Acetaminophen (By mouth) ([place]) documented in this encounter Medications at Time [...] by prochlorperazine). 30 tablet 3 04/26/2024 04/26/2025 pantoprazole (PROTONIX) 40 mg EC tablet Take [...] Lower UTI, Non-Catheter. 13 capsule 05/15/2024 05/22/2024 oxyCODONE (Roxicodone) 5 mg immediate release tabletIndications:Ac [place] Pain Exception Take 1-2 tablets (5-10 mg) by mouth every 3 hours as needed for moderate or severe pain. Pain rated 4-6 of 10, take 1 tablet. For pain rated greater than 7 of 10, take 2 tablets. Wean off this medication within 1 week of discharge. 40 tablet 05/15/2024 05/18/2024 tamsulosin (FLOMAX) 0.4 mg 24 hr capsule Take 1 capsule (0.4 mg total) by mouth daily. 30 capsule 1 04/03/2024 05/20/2024 documented as of this encounter Progress Notes * Mesha Guillermo M.D. - 05/15/2024 10:28 AM CDT Images from the original note were not included. SUBJECTIVE No acute overnight events. Afebrile, vital signs stable, saturating well on room air. Patient reports pain has improved since yesterday. He is tolerating a regular diet. Continues I/O cath with adequate urine output of 0.6 cc/kg/hr. 650 cc of ostomy output. Drain has 40 cc of serosanguineous fluid. OBJECTIVE Net IO Since Admission: -4,513 mL [05/15/24 1629] VITALS Temperature: [36.7 ??C-37.2 ??C] 36.9 ??C Resp Rate: [12-18] 18 Blood Pressure: (114-137)/(70-94) 128/85 SpO2: [96 %-97 %] 96 % Pulse Rate: [64-83] 83 Vitals signs reviewed. Hemodynamically stable and afebrile. PHYSICAL EXAMINATION General Appearance: Alert and orientated. Pleasant. Abdomen: Soft, nondistended, and nontender to palpation. Ileostomy is pink and budded with flatus and stool Coccyx drain: with serosanguinous output DIAGNOSTICS LABORATORY: Labs reviewed. Microbiology Results (last 10 days) Procedure Component Value - Date/Time Bacterial Culture, Aerobic + Susceptibility [[id number]] (Abnormal) Collected: 05/10/24 1222 Lab Status: Preliminary result Specimen: Fluid from Pelvis Updated: 05/12/24 1337 Bacterial Culture, Aerobic + Susc BACTEROIDES THETAIOTAOMICRON/FAECIS Growth after 1 day Narrative: Bacterial Culture: Received Bactec aerobic and Bactec anaerobic bottles Gram Stain [[id number]] (Abnormal) Collected: 05/10/24 1222 Lab Status: Edited Result - FINAL Specimen: Fluid from Pelvis Updated: 05/10/24 1519 Gram Stain White blood cells, Many. GRAM NEGATIVE BACILLUS Many. Comment: Semi-Urgent Result. Additional Report Semi-Urgent This is a semi-urgent result Narrative: Bacterial Culture: Received Bactec aerobic and Bactec anaerobic bottles Fungal Culture, Routine [[id number]] Collected: 05/10/24 1222 Lab Status: In process Specimen: Fluid from Pelvis Updated: 05/10/24 1325 Narrative: Bacterial Culture: Received Bactec aerobic and Bactec anaerobic bottles Fungal Smear [[id number]] Collected: 05/10/24 1222 Lab Status: Final result Specimen: Fluid from Pelvis Updated: 05/10/24 2314 Fungal Smear Negative. Narrative: Bacterial Culture: Received Bactec aerobic and Bactec anaerobic bottles Micro results reviewed, abdominal culture with bacteroides, and stain GNB ASSESSMENT / PLAN #1 Hypertension Essential Primary #2 Depression Major Recurrent Severe Without Psychotic Features ([facility]) #3 Malignant Neoplasm Of Rectum ([facility]) #4 Obesity Body Mass Index 30-39.9 Adult #5 Ileostomy Status ([facility]) #6 Abdominal Pain #7 Anxiety #8 Psoriasis #9 Gastroesophageal Reflux Disease ACTIVE ISSUES: #abdominal and coccyx pain s/p drain placement- PRN oxycodone. Triple cream and lidocaine patch around incision site. Hydromorphone dilaudid IVP for breakthrough #urinary retention- PRN bladder scan and straight cath if unable to void on own or with higher PVR volumes COMORBIDITIES PRESENT ON ADMISSION: # Hypertension - hold home medications; monitor vital signs and resume when needed # Depression - continue home medications. # Anxiety - continue home medications. # Gastroesophageal Reflux Disease - continue home medications. ASSESSMENT Hospital day #3, from abdominal and coccyx pain after drain placement into a presacral fluid collection. He is feeling much better today and is ready for discharge. PLAN: -Discharge today -Antibiotics for UTI DVT PROPHYLAXIS: Prophylactic heparin.. ANTICIPATED DISCHARGE DATE: 05/15/24 * Gloria Rapp R.N., COCN - 05/14/2024 11:59 AM CDT Consult for supplies: Due to limited availability 2 sets of Coloplast 53840 1 piece pouch, Coloplast 47430, 4237 1 inch belt, scissors, measure guide and adhesive remover wipes sent to patient room. Consult complete Page [facility] [phone] M-F 6:00AM-2:30PM with questions or leakage issues. Thursday pager [phone] 8:00AM-2:30PM. , To request another consultation with a [facility] nurse, please place an order using [id number]. * Oskar Rivera M.B., B.Ch., B.A.O., Ph.D. - 05/14/2024 11:42 AM CDT S/B Colorectal Fellow Oskar Rivera on AM Rounds Heriberto was scheduled to be discharged today, however, he was worsening pelvic pain radiating into his left leg. He has required IV dilaudid several times. His vital signs are within the normal range and is abdomen is soft with no focal areas of tenderness. He has been using in & out catheters which has ruled out urinary retention as a cause. Vitals: 05/14/24 0918 BP: 121/64 Pulse: 73 Resp: 14 Temp: 36.9 ??C SpO2: 99% Recent Results (from the past 24 hour(s)) Urinalysis, with Microscopic: Urine, Straight Catheter Collection Time: 05/13/24 8:08 PM Result Value Source Urine, Urine, Straight Catheter Color, U Yellow Clarity, U Clear Protein, U 10 Protein/Osmolality 0.14 Predicted 24 HR Protein, U 142 Predicted Range 45-447 Microscopic Automated Collection Time: 05/13/24 8:08 PM Result Value Microscopy Abnormal RBC 3-10 (A) Dysmorphic RBC <25 WBC 31-40 (A) Dipstick, Urine Collection Time: 05/13/24 8:08 PM Result Value Hemoglobin, QL, U Negative Leukocyte Esterase, U Moderate (A) Nitrite, U Negative Ketone, U Negative Glucose, U Negative Osmolality, Urine Collection Time: 05/13/24 8:08 PM Result Value Osmolality, U 729 pH, Urine Collection Time: 05/13/24 8:08 PM Result Value pH, U 5.8 Plan We will ask the Pain Medicine Team to try and help us with pain control. If his symptoms persist or he is persistently requiring IV analgesia, we could consider re-imaging. * Ayesha Gilliland, PharmMamie, R.Ph. - 05/13/2024 2:05 PM CDT Pharmacist Progress Note Reason for admission: 43 y.o. male with metastatic rectal cancer recently admitted to [facility] for management of a presacral fluid abscess s/p IR drain placement 05/10/2024, admitted for pain control on 05/12/2024. PMH: anxiety, depression, STEMI (unknown), HTN, GERD, PONV OBJECTIVE Home medications: Held: prn's Changed: none Patient own medications: none Review of Systems Neuro: pain 5 - 9 CV: VSS GI: ILO 450 ml so far Renal: Scr stable, UOP adequate with I/O cath but retaining ID: WBC wnl & afebrile, 05/10 drain cx's growing Bacteroides Prophylaxis: SQH 5,000 TID ASSESSMENT / PLAN Neuro: Pain scores elevated but improving from overnight on scheduled acetaminophen, triple cream, and lidocaine patch with prn oxycodone and hydromorphone IVP for breakthrough. Avoiding NSAIDs for now due to STEMI hx and urinary retention. ID: 05/10 pelvic drain cultures resulted with Bacteroides, query if pain related to infectious process and starting metronidazole. Renal: Urology consulted for urinary retention & pelvic pain, f/u recs. Tamsulosin started. Changes to medications anticipated at discharge: pain regimen, new tamsulosin? Abx? Uro recs. [place] 5-[place] [phone] with questions. Ayesha Gilliland Pharm.D., R.Ph. * Ayesha Gilliland Pharm.D., R.Ph. - 05/13/2024 11:32 AM CDT Images from the original note were not included. Admission Medication History Note Adherence issues: No concerns Medication list source: Patient and Pharmacy or dispense records, [facility] Medication related information: recently admitted 05/09-05/11/24 Prior to Admission Medications Med List Status: Pharmacy Complete Set By: Ayesha Gilliland PharmMamie, R.Ph. at 05/13/2024 7:02 AM Taking? Last Dose Informant Start Date End Date LT amLODIPine (NORVASC) 5 mg tablet 05/12/2024 Self 02/08/24 -- TAKE 1 TABLET (5 MG TOTAL) BY MOUTH DAILY. buPROPion XL (WELLBUTRIN XL) 300 mg 24 hr tablet 05/12/2024 Self 03/13/22 -- Take 1 tablet (300 mg total) by mouth every morning. dexAMETHasone (Decadron) 4 mg tablet -- -- 04/26/24 -- Take 2 tablets (8 mg total) by mouth daily. Take daily for 3 days, starting the day after chemotherapy ends of each cycle. DME Ostomy supplies -- -- 04/03/24 -- DME Order fluocinonide (LIDEX) 0.05 % external solution -- Self 09/23/23 -- 1 Application 2 (two) times a day as needed for irritation, itching or rash (psoriasis). Apply to the scalp up to twice daily as needed for flares. heparin 100 unit/mL syringe () -- -- 04/03/24 04/03/24 5 mL (500 Units total) by intra-catheter route once as needed for line care for up to 1 dose. FlushIV line AFTER 0.9% Sodium Chloride flush Notes: Dispense with 10 mL syringe (with 5 mL fill). heparin 100 unit/mL syringe () -- -- 04/03/24 04/03/24 Infuse 5 mL (500 Units total) by intra-catheter route once as needed for line care. Flush IV line AFTER 0.9% Sodium Chloride flush Notes: Dispense with 10 mL syringe (with 5 mL fill). heparin 100 unit/mL syringe () -- -- 04/03/24 04/03/24 infuse 5 mL (500 Units total) by intra-catheter route once as needed for line care for up to 1 dose. Flush IV line AFTER 0.9% Sodium Chloride flush Notes: Dispense with 10 mL syringe (with 5 mL fill). ibuprofen (ADVIL,MOTRIN) 200 mg tablet () -- -- 04/03/24 04/08/24 Take 3 tablets (600 mg total) by mouth every 6 (six) hours as needed for pain for up to 5 days. lamoTRIgine (LaMICtaL) 200 mg tablet 05/12/2024 -- -- -- Take 200 mg by mouth daily. lidocaine (LIDODERM) 5 % adhesive patch,medicated -- -- 04/03/24 -- Place 1 patch on the skin daily. Apply to area of most pain. Patient taking differently: Place 1 patch on the skin daily as needed. Apply to area of most pain. lidocaine-prilocaine (EMLA) 2.5-2.5 % cream -- -- 04/03/24 -- Apply 1 Application topically as needed for pain. Wearing gloves, gently squeeze prescribed amount of EMLA?? directly onto intact skin of desired numbing site. Do not rub in. Cover topical Lidocaine/Prilocaine (EMLA??) with occlusive dressing, to prevent patient from accidental ingestion or eye contact. Apply 60 minutes prior to indicated procedure. LORazepam (Ativan) 0.5 mg tablet -- -- 04/19/24 -- Take 1 tablet (0.5 mg total) by mouth 3 (three) times a day as needed for anxiety. medical cannabis oil inhalation -- Self -- -- Inhale as needed (nauesa and anxiety). THC component: 30 mg Patient does not need while in the hospital methocarbamoL (Robaxin) 500 mg tablet -- -- 04/16/24 -- Take 2 tablets (1,000 mg total) by mouth 4 (four) times a day as needed for muscle spasms. mirtazapine (Remeron) 30 mg tablet Past Week -- 05/08/24 -- Take 30 mg by mouth at bedtime. OLANZapine (ZyPREXA) 5 mg tablet -- -- 04/26/24 04/26/25 Take 1 tablet (5 mg total) by mouth at bedtime as needed (nausea, vomiting). May take dose early ifneeded. omeprazole (PriLOSEC) [address] capsule Unknown -- 04/26/24 04/21/25 Take 1 capsule (40 mg total) by mouth daily before morning meal. Notes: High dose PPI to continue while patient is getting hepatic artery infusion chemotherapy. ondansetron (Zofran) 8 mg tablet -- -- 04/26/24 04/26/25 Take 1 tablet (8 mg total) by mouth every 8 (eight) hours as needed for nausea or vomiting (unrelieved by prochlorperazine). oxyCODONE (Roxicodone) 5 mg immediate release tablet -- -- 05/08/24 -- Take 1 tablet (5 mg total) by mouth every 4 (four) hours as needed for severe pain or score 7-10 of10 Indication: Acute Pain. pantoprazole (PROTONIX) 40 mg EC tablet Past Week -- 04/03/24 -- Take 1 tablet (40 mg total) by mouth every morning before breakfast. prochlorperazine (Compazine) 10 mg tablet -- -- 04/26/24 04/26/25 Take 1 tablet (10 mg total) by mouth every 6 (six) hours as needed for nausea or vomiting. prochlorperazine (COMPAZINE) 5 mg tablet -- -- 04/03/24 -- Take 1 tablet (5 mg total) by mouth every 6 (six) hours as needed for nausea or vomiting. sildenafiL (Viagra) 50 mg tablet -- -- 05/04/24 -- Take 1 tablet (50 mg total) by mouth daily as needed for erectile dysfunction. tacrolimus (PROTOPIC) 0.1 % ointment -- Self 09/23/23 -- Apply 1 Application topically 2 (two) times a day as needed (psoriasis). tamsulosin (FLOMAX) 0.4 mg 24 hr capsule Past Week -- 04/03/24 -- Take 1 capsule (0.4 mg total) by mouth daily. Patient taking differently: Take 0.4 mg by mouth at bedtime. triamcinolone (KENALOG) 0.1 % cream -- Self 06/01/23 -- Apply to affected area 1-2 times daily as needed. Patient taking differently: 4 (four) times a day as needed for irritation or rash (psoriasis). Apply to affected area four times daily as needed for psoriasis * Maria L Grayson APRN, C.N.P., D.N.P. - 05/13/2024 8:00 AM CDT Images from the original note were not included. SUBJECTIVE Heriberto Snowden is a 43 y.o. male patient LOS 0 readmitted for increased abdomen and left buttock pain. He was most recently admitted for a presacral fluid abscess s/p drain placement 05/10/24 and was discharged 05/11/24. Prior to that he had multiple liver wedge resection, hepatic artery infusion pump placement, liver ablation, cholecystectomy, LAR with anastomosis, and ileostomy creation for malignant neoplasm of rectum, secondary malignant neoplasm of liver. This morning, patient appeared uncomfortable. He endorsed excruciating abdominal pain radiating towards the buttocks, describing it as pressure-with intermittent sharp and shooting pain, with oxycodone, lidocaine patch and triple cream providing very little to no relief. IV Dilaudid was also utilized, but per patient although this provides relief of pain, it makes him nauseated. Per patient he has been able to void with last void a Few times early this morning. Ileostomy is having stool and flatus. OBJECTIVE Net IO Since Admission: -855 mL [05/13/24 1326] VITALS Temperature: [36.7 ??C-37 ??C] 36.7 ??C Resp Rate: [16-20] 18 Blood Pressure: (108-133)/(66-90) 108/66 SpO2: [92 %-99 %] 92 % Pulse Rate: [76-83] 76 Vitals signs reviewed. Hemodynamically stable and afebrile. PHYSICAL EXAMINATION General Appearance: Alert and orientated. Patient appeared uncomfortable. Pleasant. Abdomen: Soft, nondistended, and nontender to palpation. Ileostomy is pink and budded with flatus and stool Coccyx drain: with serosanguinous output DIAGNOSTICS LABORATORY: Labs reviewed. CBC/WBC unremarkable, ALT 63L, ALP 198H Microbiology Results (last 10 days) Procedure Component Value - Date/Time Bacterial Culture, Aerobic + Susceptibility [[id number]] (Abnormal) Collected: 05/10/24 1222 Lab Status: Preliminary result Specimen: Fluid from Pelvis Updated: 05/12/24 1337 Bacterial Culture, Aerobic + Susc BACTEROIDES THETAIOTAOMICRON/FAECIS Growth after 1 day Narrative: Bacterial Culture: Received Bactec aerobic and Bactec anaerobic bottles Gram Stain [[id number]] (Abnormal) Collected: 05/10/24 1222 Lab Status: Edited Result - FINAL Specimen: Fluid from Pelvis Updated: 05/10/24 1519 Gram Stain White blood cells, Many. GRAM NEGATIVE BACILLUS Many. Comment: Semi-Urgent Result. Additional Report Semi-Urgent This is a semi-urgent result Narrative: Bacterial Culture: Received Bactec aerobic and Bactec anaerobic bottles Fungal Culture, Routine [[id number]] Collected: 05/10/24 122 Lab Status: In process Specimen: Fluid from Pelvis Updated: 05/10/24 1325 Narrative: Bacterial Culture: Received Bactec aerobic and Bactec anaerobic bottles Fungal Smear [[id number]] Collected: 05/10/24 122 Lab Status: Final result Specimen: Fluid from Pelvis Updated: 05/10/24 2314 Fungal Smear Negative. Narrative: Bacterial Culture: Received Bactec aerobic and Bactec anaerobic bottles Micro results reviewed, abdominal culture with bacteroides, and stain GNB ASSESSMENT / PLAN #1 Hypertension Essential Primary #2 Depression Major Recurrent Severe Without Psychotic Features ([facility]) #3 Malignant Neoplasm Of Rectum ([facility]) #4 Obesity Body Mass Index 30-39.9 Adult #5 Ileostomy Status ([facility]) #6 Abdominal Pain #7 Anxiety #8 Psoriasis #9 Gastroesophageal Reflux Disease ACTIVE ISSUES: #abdominal and coccyx pain s/p drain placement- PRN oxycodone. Triple cream and lidocaine patch around incision site. Hydromorphone dilaudid IVP for breakthrough #urinary retention- PRN bladder scan and straight cath if unable to void on own or with higher PVR volumes COMORBIDITIES PRESENT ON ADMISSION: # Hypertension - hold home medications; monitor vital signs and resume when needed # Depression - continue home medications. # Anxiety - continue home medications. # Gastroesophageal Reflux Disease - continue home medications. ASSESSMENT Hospital day #0, from abdominal and coccyx pain. Pain suggesting localized to drain insertion site,positioning vs nerve pain from having the drain placed deeper. CBC and CT scan is unremarkable, with unchanged presacral fluid collection, drain positioned properly. However it is also noticeable bladder is very distended which is concerning for retention and whether patient is able to fully empty.Often with full bladder also comes pushing through the pelvis worsening the pain caused by the drain positioning. Mr. Snowden mentioned that he is able to void without concerns, however this is also in small amounts. After his surgery, he has required several I&Os and had to learn how to self ca th. We advised patient to hold off on adding more IVP meds at this time, as we think we should address likely source of his pain. Initially start with having him intermittent cath to see if it could provide relief. Will also consult urology for urinary retention. PLAN: -Scheduled PVR and bladder scan q5-6 hours. -Bladder scan to assess PVR after each void -If unable to void on own after attempt, perform intermittent catheterization , please initiate teaching -PRN Pain medications Oxy q3hrs, Lidocaine patch and triple cream around affected site -Despite positive culture from drain growing bacteroides, no leukocytosis or fever. Continue with source control with drain in placement, no antibiotic needed for now -maintain PARMINDER drain, patient to dismiss home with this and remove next week at the [facility] clinic, no sinogram needed -regular diet -encourage ambulation - Urology consult for concern of urinary retention DVT PROPHYLAXIS: Prophylactic heparin.. ANTICIPATED DISCHARGE DATE: 05/14/24 Barrier to discharge is pain control, address urinary retention documented in this encounter H&P Notes * Basia Colorado APRN, C.N.P., M.S.N. - 05/12/2024 11:51 PM CDT SUBJECTIVE Chief Complaint Heriberto Snowden is an 43 y.o. male admitted for pain control. History of Present Illness Patient is a 43 y.o. M recently admitted to [facility] for management of a presacral fluid abscess s/p IR drain placement 05/10/2024. He was discharged from the hospital yesterday and presented to the ED today with severe pain. CT abdomen pelvis obtained shows no acute findings with unchanged presacral abscess collection controlled by IR drain, however due to poorly controlled pain patient is being admitted to CRS. Patient is s/p LAR with anastomosis and DLI as well as hepatic artery infusion pump placement and liver ablation/resections on March 29 for metastatic rectal cancer. Upon arrival patient reporting 9/10 pain. States he has pain both locally at the drain site but also has intermittent, sharp/shooting pain that moves through his pelvis. Has been taking Tylenol and 10 mg Oxycodone around the clock with no relief. Otherwise has no complaints. Past Medical History: Diagnosis Date Depression Major Recurrent Mild (HCC) 05/11/2017 Depression Major Recurrent Mild Goiter Multinodular Nontoxic 09/24/2018 Hypertension NOS Liver Disease Malignant Neoplasm Of Colon Adenocarcinoma (HCC) Neuropathy Peripheral fingers and toes, from chemo Post Operative Nausea/Vomiting After port was placed, thinks it was fetanly Psoriasis Past Surgical History: Procedure Laterality Date ABLATION LESION LIVER N/A 03/29/2024 Procedure: ABLATION LESION LIVER.; Surgeon: Chris Viera D.O., M.B.A.; Location: [facility] CHOLECYSTECTOMY N/A 03/29/2024 Procedure: CHOLECYSTECTOMY.; Surgeon: Chris Viera D.O., M.B.A.; Location: [facility] COLONOSCOPY 03/16/2024 CONSTRUCTION ILEOSTOMY N/A 03/29/2024 Procedure: CONSTRUCTION ILEOSTOMY.; Surgeon: Tej Quintanilla M.B., Ch.B., M.P.H.; Location: [facility] FLEXIBLE SIGMOIDOSCOPY N/A 03/29/2024 Procedure: SIGMOIDOSCOPY FLEXIBLE; Surgeon: Tej Quintanilla M.B., Ch.B., M.P.H.; Location: [facility] HEPATIC ARTERY INFUSION PUMP PLACEMENT N/A 03/29/2024 Procedure: HEPATIC ARTERY INFUSION PUMP PLACEMENT.; Surgeon: Chris Viera D.O., M.B.A.; Location: [facility] PLACEMENT PORT A CATH - POWER PORT 08/2023 RESECTION LOW ANTERIOR WITH ANASTOMOSIS N/A 03/29/2024 Procedure: RESECTION LOW ANTERIOR WITH ANASTOMOSIS.; Surgeon: Tej Quintanilla M.B., Ch.B., M.P.H.; Location: [facility] ULTRASOUND LIVER N/A 03/29/2024 Procedure: ULTRASOUND LIVER.; Surgeon: Chris Viera D.O., M.B.A.; Location: [facility] WEDGE RESECTION LIVER N/A 03/29/2024 Procedure: MULTIPLE WEDGE RESECTIONS LIVER.; Surgeon: Chris Viera D.O., M.B.A.; Location: [facility] The following portions of the patient's history were reviewed and updated as appropriate: allergies, current medications, family history, medical history, social history, surgical history, and problem list. Review of Systems Pertinent items are noted in HPI; all other review of systems was negative. OBJECTIVE Vitals Weight: 98.9 kg, Blood Pressure: 130/76, Pulse Rate: 76, Resp Rate: 16, Temperature: 36.8 ??C, SpO2: 97 % Physical Exam General Appearance: alert and oriented and no acute distress though visibly uncomfortable Abdomen: soft, non-tender, and non-distended. Stoma non-visible due to cloth covering but liquid stool can be felt in the appliance. Drain: serosanguineous. No erythema or drainage around drain insertion site. Diagnostics CT Abdomen/Pelvis IMPRESSION: 1. No acute findings in the abdomen or pelvis. 2. Stable fluid collection between the superior pancreatic head and posterior inferior distal stomach. Unchanged positioning of the hepatic artery infusion pump. 3. Unchanged presacral fluid collection with pigtail drainage catheter. Labs: CBC WNL BMP WNL LFTs - mildly elevated ALT and Alk phos though significantly improved since surgery Lactate WNL Assessment/Plan The patient's current conditions treated, managed, or evaluated during the inpatient stay include: #1 Abdominal Pain #2 Hypertension Essential Primary -Continue home medications #3 Depression Major Recurrent Severe Without Psychotic Features (HCC) -Continue home medications #4 Malignant Neoplasm Of Rectum (HCC) #5 Obesity Body Mass Index 30-39.9 Adult #6 Ileostomy Status (HCC) #7 Anxiety -Continue home medications #8 Psoriasis #9 Gastroesophageal Reflux Disease -Continue home medications Assessment/Plan: 43 y.o. M with PMH significant for metastatic rectal cancer recently admitted to [facility] for management of a presacral fluid abscess s/p IR drain placement 05/10/2024 admitted for pain control. -Pain control with scheduled Tylenol, Ibuprofen, triple cream. PRN Oxycodone and IV Dilaudid. May need to consider pain medicine consult tomorrow -General diet -DVT prophylaxis: SQ heparin -Activity as tolerated -Drain cares as ordered documented in this encounter Consult Notes * Anny Mcneill M.D. - 05/13/2024 12:33 PM CDTAssociated Order(s): IP CONSULT TO UROLOGY UROLOGY CONSULT NOTE REASON FOR CONSULT Status post LAR with anastomosis for rectal cancer. Complicated by presacral abscess with drain, readmit for pain issues from drain, also has severe urinary retention issues, and pelvic pain HISTORY OF PRESENT ILLNESS Mr. Snowden is a pleasant 43 y.o. male for whom we are consulted for the management of the above. He is status post LAR with ileostomy construction for metastatic rectal cancer on 03/29/2024. Course complicated by presacral abscess status post IR drain placement 05/10/2024. [facility] but re-presented to the emergency department with severe pain, CT scan done on admission was without acute findings. He was admitted to the Colorectal surgery Service. On my assessment, the patient is afebrile, hemodynamically stable. Appears pretty comfortable now, having some moderate pain in the pelvis and drain site. He endorses the above history. He also adds that during the time of his last hospitalization he required I/O catheterization pretty consistentlythroughout the hospitalization and discharged doing I/O on a schedule every 4 hours. He was able towean this based on his residuals and for the last week or so prior to this admission was not requiring any catheterizations. He did feel he was emptying his bladder and did perform some catheter PVRswhich were minimal. Early this morning he voided 200 cc spontaneously and then was subsequently catheterized for over 1L. This happened again later this afternoon with another very high residual. Anticoagulation: None Immunosuppression: None PMHx: Metastatic rectal cancer, Hypertension, depression, GERD SURGICAL HISTORY Past Surgical History: Procedure Laterality Date ABLATION LESION LIVER N/A 03/29/2024 Procedure: ABLATION LESION LIVER.; Surgeon: Chris Viera D.O., M.B.A.; Location: [facility] CHOLECYSTECTOMY N/A 03/29/2024 Procedure: CHOLECYSTECTOMY.; Surgeon: Chris Viera D.O., M.B.A.; Location: [facility] COLONOSCOPY 03/16/2024 CONSTRUCTION ILEOSTOMY N/A 03/29/2024 Procedure: CONSTRUCTION ILEOSTOMY.; Surgeon: Tej Quintanilla M.B., Ch.B., M.P.H.; Location: [facility] FLEXIBLE SIGMOIDOSCOPY N/A 03/29/2024 Procedure: SIGMOIDOSCOPY FLEXIBLE; Surgeon: Tej Quintanilla M.B., Ch.B., M.P.H.; Location: [facility] HEPATIC ARTERY INFUSION PUMP PLACEMENT N/A 03/29/2024 Procedure: HEPATIC ARTERY INFUSION PUMP PLACEMENT.; Surgeon: Chris Viera D.O., M.B.A.; Location: [facility] PLACEMENT PORT A CATH - POWER PORT 08/2023 RESECTION LOW ANTERIOR WITH ANASTOMOSIS N/A 03/29/2024 Procedure: RESECTION LOW ANTERIOR WITH ANASTOMOSIS.; Surgeon: Tej Quintanilla M.B., Ch.B., M.P.H.; Location: [facility] ULTRASOUND LIVER N/A 03/29/2024 Procedure: ULTRASOUND LIVER.; Surgeon: Chris Viera D.O., M.B.A.; Location: [facility] WEDGE RESECTION LIVER N/A 03/29/2024 Procedure: MULTIPLE WEDGE RESECTIONS LIVER.; Surgeon: Chris Viera D.O., M.B.A.; Location: [facility] SOCIAL HISTORY Lives in [place], [place] Former smoker OBJECTIVE AVSS General: Lying in bed, comfortable appearing Abdomen: Soft, nondistended. Pelvic rain in place with serous output. No flank pain. Labs: Hemoglobin 13.3 White count 5.6 Creatinine 0.77 Imaging: Reviewed a CT abdomen pelvis from 05/12. Normal-appearing kidneys. No hydronephrosis. No nephrolithiasis. Presacral drain in place, presacral fluid collection decreased in size. Micro: Pelvic fluid growing BACTEROIDES THETAIOTAOMICRON/FAECIS ASSESSMENT / PLAN #1 Urinary retention Mr. Snowden is a pleasant 43 y.o. male for whom we are consulted for urinary retention, he is status post LAR in 03/29 and admitted for pelvic pain in the setting of a presacral abscess managed with dayne. He has had high volume residuals requiring I/O catheterization this hospitalization after initially being able to wean off I/O at home. Etiology of his urinary retention is multifactorial, certainly LAR can can contribute to difficultywith voiding. Local inflammation related to the presacral abscess in addition to being on narcotic pain medications also playing a role. Discussed this with the patient. Discussed that while he is in the hospital we would like him to Deirdre/O catheterizations on a schedule every 4-6 hours to ensure adequate bladder emptying. We would also like the patient to go home on a scheduled CIC regimen every 4 hours similar to last time. If he feels he is able to wean down we would like him to measure some PVRs with catheterization at home toensure he is adequately emptying and increase frequency of CIC if he is not. See recommendations below. Patient also described some erectile dysfunction postoperatively. Similar drivers as above likely contributing to his issues with erectile function, I offered him referral to our [facility] and he is interested in meeting with them. I will place this order. I will also place an order for a month from now for follow up in our department for urinary retention. Patient can cancel this if he is voiding well on his own by then. Plan -obtain urinalysis and urine culture, treat if positive -CIC on a schedule while in the hospital every 4-6 hours -patient should be instructed to CIC 4 times daily at home, recommendations below -I will place referrals for men's health and urinary retention follow up in our clinic The above was discussed with Dr. Jones, chief urology resident. Anny Mcneill M.D. Urology PGY-3 [facility] consult pager: [phone] from [phone] Emergency call pager: [phone] from [phone] RECOMMENDATIONS 1. Start clean intermittent catheterizations with 14 Fr catheter after voiding three times daily, aiming for post-void residuals of <200cc. If post void residuals are consistently >300cc pleasechange catheterizations to every 4 hours. The patient should be taught how to clean intermittent catheterize himself by the Urology Technicians. These should be the patient's instructions for CIC at home and should be copied into summary if necessary: INTERMITTENT CATHETERIZATION RECOMMENDATIONS You will need to do CIC 4 times daily. You need to try and void spontaneously. Perform CIC immediately after voiding. Measure your drainedurine in the measuring cup. 1. If your postvoid CIC residual (drained urine) is more than 400 cc you will need to increase CIC frequency to 6 times daily. 2. If your postvoid residual is less than 300 cc you can reduce CIC frequency to 3 times daily. 3. If your postvoid residual is less than 200 cc you can reduce CIC frequency to 2 times daily. 4. If your postvoid residual remains consistently under 150 cc for 2-3 days you can stop performingCIC. 5. If in 6 weeks the patient continues to have urinary retention, the patient should have a formal urologic evaluation as an outpatient for his urinary retention. In/out catheter prescription may be ordered by primary service by ordering: Durable medical supplies --> urinary catheter --> 14 Fr straight tip catheter with 2oz lubrication packets ---Note Sterile technique is not necessary documented in this encounter Nursing Notes * Fiona Driscoll R.N. - 05/15/2024 1:00 PM CDT Shift Goals: Clinical Goals for the Shift: d/c home Identify possible barriers to meeting goals/advancing plan of care: none End of Shift Summary: Pt d/c home to self care. AVS reviewed at bedside with pt and caregiver, all questions and concerns addressed at bedside. All d/c requirement met, VSS. documented in this encounter ED Notes * Patsy Zhou M.D. - 05/12/2024 6:23 PM CDT SUBJECTIVE CHIEF COMPLAINT/REASON FOR VISIT Post-op Problem HISTORY OF PRESENT ILLNESS Patient is a 43 y.o. male who presents with left-sided drain site pain as well as pain in his bottom. The patient is status post drain placement for fluid collection in the pelvis in the setting of recent colorectal surgery for colorectal malignancy. The patient was discharged from the hospital yesterday after this drain was placed. He denies fevers but has felt nauseous denies vomiting. He has had fairly significant left-sided pain around the drain site that he thinks radiates into his bottom.He does not pass stool from below and has ileostomy has had normal drainage. His bulb suction drainis continued to drain similar fluid. REVIEW OF SYSTEMS Gastrointestinal: Positive for abdominal pain and nausea. Musculoskeletal: Positive for back pain. OBJECTIVE Initial Vitals Temperature 05/12/24 1528 36.9 ??C Pulse Rate 05/12/24 1528 83 Heart Rate -- Resp Rate 05/12/24 1528 16 Blood Pressure 05/12/24 1528 133/90 SpO2 05/12/24 1528 96 % Pain Score 05/12/24 1529 9 PHYSICAL EXAMINATION Constitutional: Nursing note and vitals reviewed. Visibly uncomfortable takes short breaths because of pain HENT: Mouth/Throat: Mucous membranes are moist. Eyes: Conjunctivae are normal. Cardiovascular: Normal rate and regular rhythm. Pulses are strong and palpable. Pulmonary/Chest: Effort normal. No stridor. No tachypnea. No respiratory distress. Abdominal: exhibits no distension. There is no abdominal tenderness. There is no guarding. Musculoskeletal: General: No deformity or edema. Neurological: Alert and oriented to person, place, and time. Normal speech. Skin: Skin is warm. Psychiatric: He has a normal mood and affect. ASSESSMENT/PLAN Assessment and Plan Patient is a 43-year-old who presents with worsening pain in the setting of a recent left-sided PARMINDER drain placement for fluid containing possible abscess versus hematoma. CT performed shows 1. No acute findings in the abdomen or pelvis. 2. Stable fluid collection between the superior pancreatic head and posterior inferior distal stomach. Unchanged positioning of the hepatic artery infusion pump. 3. Unchanged presacral fluid collection with pigtail drainage catheter. Spoke with colon and rectal and they were reassured by CT findings but agreed to admit for pain control. Discussed pain with pt again he has been taking 10 mg of oxy and when he left the hospital yesterday he felt his pain was well controlled. Fentanyl ordered, we will admit. . Final Diagnoses: as of 05/12/241832 Pain Postoperative Patsy Zhou M.D. 05/12/241835 * Domenica German R.N. - 05/12/2024 3:29 PM CDT Patient presents to ED for evaluation of pelvic pain after a recent procedure and hospitalization for treatment of a fluid collection in his pelvic region. Patient discharged from hospital yesterday,and was pain free at that time. Last evening the pain returned and has increased in intensity. No fever reported and drainage continues through PARMINDER drain. Domenica German R.N. 05/12/24 1531 documented in this encounter Miscellaneous Notes * Hospital Course - Blanche Goodrich APRN, C.N.P., D.N.P. - 05/13/2024 12:05 AM CDT Patient is a 43 y.o. M recently admitted to [facility] for management of a presacral fluid abscess s/p IR drain placement 05/10/2024. He was discharged from the hospital yesterday and presented to the ED today with severe pain. CT abdomen pelvis obtained shows no acute findings with unchanged presacral abscess collection controlled by IR drain, however due to poorly controlled pain patient is being admitted to CRS. Patient is s/p LAR with anastomosis and DLI as well as hepatic artery infusion pump placement and liver ablation/resections on March 29 for metastatic rectal cancer. PRIMARY DIAGNOSIS: Uncontrolled Pain PROCEDURE: N/A DRAINS: Interventional Radiology placed drain remains in place. Patient will follow-up in clinic with Dr. Quintanilla for evaluation and management, possible removal. ADDITIONAL DIAGNOSES/COMPLICATIONS/CHRONIC CONDITIONS ADDRESSED DURING HOSPITALIZATION: # Urinary retention # Urinary Tract Infection # Abdominal pain # Presacral discomfort s/p drain placement Pain medications titrated to effect including lidocaine patches and triple cream. Abdominal and presacral discomfort likely related from full bladder pushing against the drain. Patient either able tovoid but in little amounts or is not able to void on own, residual scan remained high and patient required multiple intermittent catheterizations to relieve pressure. Patient was taught how to perform self intermittent catheterizations. Urology also consulted in thesetting of urinary retention. Urology Recommendations: -Urinalysis positive for staph epidermis, prescribed Macrobid BID x 7 days -Patient should be instructed to CIC 4 times daily at home -Referrals placed for men's health and urinary retention follow up in clinic # History of intraabdominal abscess with drain placement Recent culture reviewed from abdominal fluid sample with bacteroides thetaiotaomicron/faecis and GNB, given patient has no leukocytosis or fever, the drain can be considered adequate source control. No need for antibiotics at dismissal. Drain remained at dismissal and will be removed on the next clinic visit. documented in this encounter Plan of Treatment Upcoming Encounters Date Type Department Care Team (Late st Contact Info) Description 06/01/2024 9:30 AM CDT Clinical Support Division of Colon and Rectal Surgery in [place], [place] [address] [place] [phone] Armida Bullock APRN, C.N.P., M.S.N. [address] [place] [phone] 06/07/2024 9:20 AM CDT Lab Department of Infusion Therapy in [place], [place] [address] [place] [phone] Mariluz Soler M.D. [address] [place] [phone] 06/07/2024 11:20 AM CDT Office Visit Department of Oncology in [place], [place] [address] [place] [phone] Mariluz Soler M.D. [address] [place] [phone] 06/07/2024 1:00 PM CDT Infusion Department of Oncology in [place], [place] [address] [place] [phone] Mariluz Soler M.D. [address] [place] [phone] 06/17/2024 8:30 AM CDT Appointment Department of Laboratory Medicine and Pathology, [facility], in [place], [place] [address] [place] [phone] Anny Mcneill M.D. [address] [place] [phone] 06/17/2024 9:00 AM CDT Lab Department of Infusion Therapy in [place], [place] [address] [place] [phone] Anny Mcneill M.D. [address] [place] [phone] 06/17/2024 10:45 AM CDT Procedure visit Department of Urology in [place], [place] [address] [place] [phone] Anny Mcneill M.D. [address] [place] [phone] 06/17/2024 1:45 PM CDT Comprehensive Visit Department of Urology in [place], [place] [address] [place] [phone] Ayesha Romero P.A.-C. [address] [place] [phone] 06/17/2024 4:15 PM CDT Comprehensive Visit Department of Urology in [place], [place] [address] [place] [phone] Scotty Tom APRN, C.N.P. [address] [place] [phone] documented as of this encounter Goals Goal [...] Depression General Improving( 11:43 AM CDT) Yes Lecompte, Michael McgheeN. Note: P. 46-48 Create a relapse prevention plan. Spend time with my dog again. General On track( 11:43 AM CDT) Yes Nadia Nickerson R.N. Have some time to himself regularly. General On track( 11:47 AM CDT) Yes Lecompte, Nadia Boone R.N. Note: 01/24/20 - More structure to his day. 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 Recognizing he needs more personal time. Meet with therapist regularly General On track( 11:43 AM CDT) Yes Lecompte, Nadia Boone, R.N. Note: Dr. Pavan Sorensen, with [email or web address] in [place], [place]. Take your medication every day Lifestyle On track( 11:49 AM CDT) No Nadia Nickerson R.N. Note: Increased Wellbutrin to 300 mg daily 02/09/20. PHQ-9 Total Score (max 27) < 5 Symptom Management 3(04/06/2024 7:51 PM CDT) No Lecompte, Nadia Boone R.N. Note: Enrollment PHQ9=18 on 08/16/19 Patient goals at enrollment: 1. I'd like to have my depression be less intense. 2. I'd like to learn some coping strategies. 3. I'd like to learn how to keep my depression from flaring back again documented as of this encounter Procedures Procedure Name Priority Date/Time Associated Diagnosis Comments DIPSTICK, U Routine 05/13/2024 8:08 PM CDT MICROSCOPIC AUTOMATED Routine 05/13/2024 8:08 PM CDT BACTERIAL CULTURE, AEROBIC + SUSC, URINE Routine 05/13/2024 8:08 PM CDT PH, U Routine 05/13/2024 8:08 PM CDT OSMOLALITY, U Routine 05/13/2024 8:08 PM CDT URINALYSIS WITH MICROSCOPIC Routine 05/13/2024 8:[address] ABDOMEN PELVIS WITH IV CONTRAST RAD - Semiurgent (Fast; most ED patients; some inpatients) 05/12/2024 4:18 PM CDT HEPATIC FUNCTION PANEL, S STAT 05/12/2024 3:46 PM CDT CBC WITH DIFFERENTIAL, B STAT 05/12/2024 3:46 PM CDT LACTATE, B/P STAT 05/12/2024 3:46 PM CDT BASIC METABOLIC PANEL, S/P STAT 05/12/2024 3:46 PM CDT LIPASE, S/P STAT 05/12/2024 3:40 PM CDT documented in this encounter Results * pH, Urine (05/13/2024 8:08 PM CDT) Pathologist [facility] [place] pH, U 5.8 4.5 - 8.0 05/13/2024 8:3 1 PM CDT DTL Urine 05/13/2024 8:08 PM CDT 05/13/2024 8:16 PM CDT Ravi Covarrubias M.D., Ph.D. LAB URINE OR DERABLES Performing Organization Address [facility] Hospital/[facility] Co de Phone Number [facility] [address] [place] [address] * Osmolality, Urine (05/13/2024 8:08 PM CDT) Pathologist [facility] [place] Osmolality, U [phone] - 1150 mOsm/kg 05/13/2024 8:31 PM CDT DTL Urine 05/13/2024 8:08 PM CDT 05/13/2024 8:16 PM CDT Ravi Covarrubias M.D., Ph.D. LAB URINE OR DERABLES Performing Organization Address [facility] de Phone Number [facility] 200 [place] [address] * (ABNORMAL) Dipstick, Urine (05/13/2024 8:08 PM CDT) Pathologist [facility] [place] Hemoglobin, QL, U Negative Negative 05/13/2024 8:26 [...] LAB URINE OR DERABLES Performing Organization Address City/[facility] Co de Phone Number [facility] [address] [place] [address], [facility] 200 [place] [address] * (ABNORMAL) Microscopic Automated (05/13/2024 8:08 PM [...] LAB URINE OR DERABLES Performing Organization Address [facility] de Phone Number [facility] 200 [place] [address], [facility] 200 [place] [address] * Urinalysis, with Microscopic: Urine, Straight Catheter [...] DERABLES [facility] [address] [place] [address], [facility] [address] [place] [address] * (ABNORMAL) Bacterial Culture, Aerobic + Susceptibility, [...] Ph.D. LAB MICROBIO LOGY - GENERAL ORDERABLES [facility] [address] [place] [address], [place] DTL [facility] [address] [place] [address] * CT Abdomen Pelvis with IV Contrast (05/12/2024 4:18 PM CDT) Anatomical Region Laterality Modality Abdomen, Pelvis, Abdominal [...] fluid collection with pigtail drainage catheter. Mode Harper-Uriel IMG CT PROCEDURES * Lactate (05/12/2024 3:46 PM CDT) Lactate, P 1.0 0.5 - 2.2 mmol/L 05/12/2024 4:13 PM CDT [facility] Blood (Blood, Venous) 05/12/2024 3:46 PM CDT 05/12/2024 3:55 PM CDT Mode Harper-C. LAB BLOOD NON ADD -ON [facility] [address] [place] [address], [facility] [address] [place] [address] * (ABNORMAL) Hepatic Function Panel (05/12/2024 3:46 PM CDT) Bilirubin, Total, S 0.3 0.0 - 1.2 [...] Mode Corbett P.A.-C. LAB BLOOD ADD-ON [facility] [address] [place] [address], [facility] [address] [place] [address] * Basic Metabolic Panel (05/12/2024 3:46 PM CDT) Potassium, P 4.5 3.6 - 5.2 mmol/L [...] Mode Corbett P.A.-C. LAB BLOOD ADD-ON [facility] [address] [place] [address], [facility] 200 [place] [address] * CBC with Differential, Blood (05/12/2024 3:46 PM CDT) Hemoglobin 13.3 13.2 - 16.6 g/dL 05/12/2024 4:09 PM CDT [facility] Hematocrit 40.9 38.3 - 48.6 % 05/12/2024 4:09 PM CDT [facility] Erythrocytes 4.58 4.35 - 5.65 x10(12)/L 05/12/2024 4:09 PM CDT [facility] MCV 89.3 78.2 - 97.9 fL 05/12/2024 4:09 PM CDT [facility] RBC Distrib Width 13.2 11.8 - 14.5 % 05/12/2024 4:09 PM CDT [facility] Platelet Count 271 135 - 317 x10(9)/L 05/12/2024 4:09 PM CDT [facility] Leukocytes 5.6 3.4 - 9.6 x10(9)/L 05/12/2024 4:09 PM CDT [facility] Neutrophils 3.66 1.56 - 6.45 x10(9)/L 05/12/2024 4:09 PM CDT [facility] Lymphocytes 1.09 0.95 - 3.07 x10(9)/L 05/12/2024 4:09 PM CDT [facility] Monocytes 0.59 0.26 - 0.81 x10(9)/L 05/12/2024 4:09 PM CDT [facility] Eosinophils 0.16 0.03 - 0.48 x10(9)/L 05/12/2024 4:09 PM CDT [facility] Basophils 0.05 0.01 - 0.08 x10(9)/L 05/12/2024 4:09 PM CDT [facility] Blood (Blood, Venous) 05/12/2024 3:46 PM CDT 05/12/2024 3:55 PM CDT Mode Corbett P.A.-C. LAB BLOOD ADD-ON [facility] [address] STMA [facility] 200 [place] [address] DHPM [facility] 200 [place] [address] * Lipase (05/12/2024 3:40 PM CDT) Lipase, S 35 13 - 60 U/L 05/12/2024 6: 57 PM CDT DTL Blood (Blood, Venous) 05/12/2024 3:40 PM CDT 05/12/2024 6:39 PM CDT Patsy Zhou M.D. 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) Ileostomy Status (HCC) Malignant Neoplasm Of Rectum (HCC) Obesity Body Mass Index 30-39.9 Adult Hypertension Essential Primary Anxiety Psoriasis Gastroesophageal Reflux Disease documented in this encounter Admitting Diagnoses Diagnosis Pain Postoperative Abdominal Pain documented in this encounter Administered Medications Inactive Administered Medications - up to 3 most recent administrations Medication Order MAR Action Action Date Dose Rate Site acetaminophen tablet 1,000 mg (TylenoL) 1,000 mg, oral, 4 times daily, First dose on Thu05/13/24 at 0800, Not to exceed 4 grams of acetaminophen in 24 hours all sources Given 05/15/2024 11:46 AM CDT 1,000 mg Given 05/15/2024 8:18 AM CDT 1,000 mg Given 05/14/2024 9:06 PM CDT 1,000 mg jbdjsxyylazkw-mtejjbdr-mrctraavk in Lipoderm 2%-5%-5% cream 1 g 1 g, topical, 4 times daily, First dose (after last modification) on Thu05/13/24 at 0000, Around drain site (or other site of pain) Given 05/15/2024 8:18 AM CDT 1 g Given 05/14/2024 9:06 PM CDT 1 g Given 05/14/2024 4:38 PM CDT 1 g amLODIPine tablet 5 mg (Norvasc) 5 mg, oral, Daily, First dose on Thu05/13/24 at 0900 Given 05/15/2024 8:18 AM CDT 5 mg Given 05/14/2024 9:24 AM CDT 5 mg Given 05/13/2024 9:11 AM CDT 5 mg buPROPion XL 24 hr tablet 300 mg (Wellbutrin XL) 300 mg, oral, Every morning, First dose on Thu05/13/24 at 0900, Swallow whole. Do NOT crush, chew, or split tablet. Given 05/15/2024 8:18 AM CDT 300 mg Given 05/14/2024 9:24 AM CDT 300 mg Given 05/13/2024 9:11 AM CDT 300 mg D5W infusion 1-999 mL/hr, intravenous, As needed, Medications Incompatible with 0.9% NaCL, Starting on Thu05/13/24 at 0124, Infuse at the same rate as the piggyback until tubing clears or up to a volume of 20 mL pre and post infusion for medications incompatible with 0.9% NaCL. Use 50 mL bag then discard. fentaNYL injection 75 mcg (Sublimaze) 75 mcg, intravenous, Every 15 min PRN, severe pain or score 7-10 of 10, Starting on Rhianna 05/12/24 at 1825, For 3 doses Given 05/12/2024 9:43 PM CDT 75 mcg Given 05/12/2024 6:57 PM CDT 75 mcg heparin (porcine) injection 5,000 Units 5,000 Units, subcutaneous, Every 8 hours scheduled, First dose on Thu05/13/24 at 0600 Given 05/15/2024 6:14 AM CDT 5,000 Units Left Lower Abdomen Given 05/14/2024 9:05 PM CDT 5,000 Units L eft Lower Abdomen Given 05/14/2024 2:27 PM CDT 5,000 Units L eft Upper Arm (Back) heparin flush 500-1,000 Units 500-1,000 Units, intra-catheter, During hospitalization, line care, Prior to discharge, Starting on Thu05/13/24 at 0124, For 1 dose, Implanted Vascular Access Device (IVAD) Venous Non-Valved: flush 5 mL (500 units) per port/lumen following saline flush prior to discharge. Given 05/15/2024 12:00 PM CDT 500 Units HYDROmorphone (PF) injection 0.2 mg (Dilaudid) 0.2 mg, intravenous, Every 1 hour PRN, severe pain or score 7-10 of 10, Starting on [facility] 05/14/24 at 0519 Given 05/14/2024 9:15 AM CDT 0.2 mg Given 05/14/2024 7:32 AM CDT 0.2 mg Given 05/14/2024 5:38 AM CDT 0.2 mg HYDROmorphone (PF) injection 0.4 mg (Dilaudid) 0.4 mg, intravenous, Every 2 hour PRN, severe pain or score 7-10 of 10, Starting on Rhianna 05/12/24 at 2347, For 24 hours Given 05/13/2024 5:33 PM CDT 0.4 mg Given 05/13/2024 1:15 PM CDT 0.4 mg Given 05/13/2024 7:12 AM CDT 0.4 mg HYDROmorphone (PF) injection 0.75 mg (Dilaudid) 0.75 mg, intravenous, Every 30 min PRN, severe pain or score 7-10 of 10, Starting on Thu05/12/24 at 1942, For 3 doses Given 05/12/2024 10:39 PM CDT 0.75 mg Given 05/12/2024 8:00 PM CDT 0.75 mg iohexoL 300 mg iodine/mL solution 1-200 mL (Omnipaque) 1-200 mL, intravenous, Once in imaging, contrast, Starting on Thu05/12/24 at 1605, For 1 dose, Imaging Protocol Orders, Dose per Radiant Medication Guidelines Given 05/12/2024 4:07 PM CDT 140 mL lamoTRIgine tablet 200 mg (LaMICtaL) 200 mg, oral, Daily, First dose on Thu05/13/24 at 0900 Given 05/15/2024 8:18 AM CDT 200 mg Given 05/14/2024 9:24 AM CDT 200 mg Given 05/13/2024 10:41 AM CDT 200 mg lidocaine 5 % 1 patch (Lidoderm) 1 patch, transdermal, Administer over 12 Hours, Daily, First dose on Thu05/13/24 at 0900, Remove after 12 hours. Medication Applied 05/14/2024 9:26 AM CDT 1 patch Back Medication Applied 05/13/2024 9:12 AM CDT 1 patch Left Lower Abdomen LORazepam tablet 0.5 mg (Ativan) 0.5 mg, oral, 3 times daily PRN, anxiety, Starting on Thu05/12/24 at 2358 Given 05/14/2024 10:15 PM CDT 0.5 mg Given 05/13/2024 9:12 PM CDT 0.5 mg Given 05/13/2024 9:11 AM CDT 0.5 mg methocarbamoL tablet 1,000 mg (Robaxin) 1,000 mg, oral, 4 times daily PRN, muscle spasms, Starting on Thu05/12/24 at 2358 Given 05/14/2024 10:15 PM CDT 1,0 00 mg Given 05/14/2024 11:41 AM CDT 1,000 mg Given 05/14/2024 3:26 AM CDT 1,000 mg mirtazapine tablet 30 mg (Remeron) 30 mg, oral, Daily at bedtime, First dose on Thu05/13/24 at 2100 Given 05/14/2024 9:06 PM CDT 30 mg Given 05/13/2024 9:12 PM CDT 30 mg NaCl 0.9% infusion 1-999 mL/hr, intravenous, As needed, Between Consecutive Piggyback Medications, Starting on Thu05/13/24 at 0124, Infuse at the same rate as the piggyback until tubing clears or up to a volume of 20 mL. Select for IV medication administration when no maintenance IV available or when IV medications are not compatible with maintenance fluid. NaCl 0.9% infusion 1-999 mL/hr, intravenous, As needed, Post Medications (Hazardous/Low Fluid Volume), Starting on Thu05/13/24 at 0124, Infuse at the same rate as the medication until tubing cleared of medication, then discard. nitrofurantoin monohydrate capsule 100 mg (Macrobid) 100 mg, oral, 2 times daily, First dose (after last modification) on Thu05/15/24 at 1115, For 7 days, Drug Monitoring Program: Pharmacist to adjust medication dosing based on indication and drug clearance factors., Indications: Lower UTI, Non-Catheter Given 05/15/2024 11:46 AM CDT 100 mg ondansetron (PF) injection 4 mg (Zofran) 4 mg, intravenous, Every 6 hours PRN, nausea, Starting on Thu05/13/24 at 0235 Given 05/14/2024 7:32 AM CDT 4 mg Given 05/13/2024 5:33 PM CDT 4 mg Given 05/13/2024 3:02 AM CDT 4 mg ondansetron ODT disintegrating tablet 4 mg (Zofran-ODT) 4 mg, sublingual, Every 4 hours PRN, nausea, vomiting, Starting on Thu05/12/24 at 1832, When splitting ODT at bedside, handle with gloves and a pill splitter to prevent moisture contact. Given 05/12/2024 6:38 PM CDT 4 mg ondansetron ODT disintegrating tablet 4 mg (Zofran-ODT) 4 mg, oral, Every 6 hours PRN, nausea, vomiting, Starting on Thu05/12/24 at 2311, When splitting ODT at bedside, handle with gloves and a pill splitter to prevent moisture contact. oxyCODONE IR tablet 10 mg (Roxicodone) 10 mg, oral, Every 4 hours PRN, severe pain or score 7-10 of 10, Starting on Thu05/12/24 at 2311 Given 05/13/2024 5:09 AM CDT 10 mg Given 05/13/2024 12:12 AM CDT 10 mg oxyCODONE IR tablet 10 mg (Roxicodone) 10 mg, oral, Every 3 hours PRN, severe pain or score 7-10 of 10, Starting on Thu05/13/24 at 0657 Given 05/15/2024 12:38 PM CDT 10 mg Given 05/15/2024 6:14 AM CDT 10 mg Given 05/15/2024 3:12 AM CDT 10 mg oxyCODONE IR tablet 5 mg (Roxicodone) 5 mg, oral, Once, On Thu05/12/24 at 1740, For 1 dose Given 05/12/2024 6:15 PM CDT 5 mg oxyCODONE IR tablet 5 mg (Roxicodone) 5 mg, oral, Every 3 hours PRN, moderate pain or score 4-6 of 10, Starting on Thu05/13/24 at 0657 Given 05/14/2024 2:26 PM CDT [address] tablet 40 mg (Protonix) 40 mg, oral, Daily before morning meal, First dose on Thu05/13/24 at 0700, pantoprazole 40 mg oral daily was interchanged for omeprazole 20 or 40 mg oral daily Swallow whole. Do NOT crush, chew, or split tablet. Given 05/15/2024 6:14 AM CDT 40 mg Given 05/14/2024 7:32 AM CDT 40 mg Given 05/13/2024 5:09 AM CDT 40 mg pregabalin capsule 25 mg (Lyrica) 25 mg, oral, 3 times daily, First dose on Thu05/14/24 at 2100 Given 05/15/2024 8:18 AM CDT 25 mg Given 05/14/2024 9:06 PM CDT 25 mg prochlorperazine injection 5 mg (Compazine) 5 mg, intravenous, Every 6 hours PRN, nausea, vomiting, Starting on Thu05/13/24 at 0649 Given 05/14/2024 5:42 AM CDT 5 mg Given 05/13/2024 1:15 PM CDT 5 mg Given 05/13/2024 7:12 AM CDT 5 mg sodium chloride (PF) 0.9 % injection 1-100 mL 1-100 mL, intravenous, Once, On Thu05/12/24 at 1606, For 1 dose, Imaging Protocol Orders, Dose per Radiant Medication Guidelines Given 05/12/2024 4:07 PM CDT 50 mL sodium chloride 0.9 % injection 10 mL 10 mL, intravenous, As needed, line care, Starting on Thu05/12/24 at 2311, Peripheral Intravenous Catheter and Rapid Infusion Catheter, prior to blood sampling, post blood transfusion or post blood sampling sodium chloride 0.9 % injection 10-20 mL 10-20 mL, intravenous, As needed, line care, Implanted Vascular Access Device (IVAD) Venous Non-Valved, Starting on Thu05/13/24 at 0124, Prior to and following infusion and between multiple consecutive infusions, flush 10 mL to each port/lumen. sodium chloride 0.9 % injection 10-20 mL 10-20 mL, intravenous, Every 12 hours scheduled, First dose on Thu05/13/24 at 0900, Implanted Vascular Access Device (IVAD) Venous Non-Valved: When no infusion to maintain patency, flush 10 mL per port/lumen. Given 05/15/2024 8:19 AM CDT 10 mL Given 05/14/2024 9:19 PM CDT 10 mL Given 05/14/2024 9:26 AM CDT 10 mL sodium chloride 0.9 % injection 10-20 mL 10-20 mL, intravenous, During hospitalization, line care, Prior to discharge, Starting on Thu05/13/24 at 0124, For 1 dose, Implanted Vascular Access Device (IVAD) Venous Non-Valved: Flush 10 mL per port/lumen followed by heparin flush prior to discharge. sodium chloride 0.9 % injection 20-40 mL 20-40 mL, intravenous, As needed, line care, Implanted Vascular Access Device (IVAD) Venous Non-Valved, Starting on Thu05/13/24 at 0124, Prior to blood sampling, post blood transfusion or post blood sampling, flush 20 mL per port/lumen. sodium chloride 0.9 % injection 3 mL 3 mL, intravenous, As needed, line care, Starting on Rhianna 05/12/24 at 2311, Prior to and following infusion and between multiple consecutive infusions: sodium chloride 0.9 % injection sodium chloride 0.9 % injection 3 mL 3 mL, intravenous, Every 12 hours scheduled, First dose on Thu05/13/24 at 0900, Peripheral Intravenous Catheter and Rapid Infusion Catheter, when no infusion to maintain patency Given 05/15/2024 8: 20 AM CDT 3 mL Given 05/14/2024 9:26 AM CDT 3 mL Given 05/13/2024 10:41 AM CDT 3 mL tamsulosin 24 hr capsule 0.4 mg (Flomax) 0.4 mg, oral, Daily at bedtime, First dose on Thu05/13/24 at 2100, Swallow whole. Do NOT crush, chew or open capsule. Given 05/14/2024 9:07 PM CDT 0.4 mg Given 05/13/2024 9:12 PM CDT 0.4 mg documented in this encounter Active and Recently Administered Medications Times are shown in CDT. Scheduled Medication Order 05/13/2024 05/14/2024 05/15/2024 acetaminophen tablet 1,000 mg (TylenoL) 1,000 mg, oral, 4 times daily, First dose on Thu05/13/24 at 0800, Not to exceed 4 grams of acetaminophen in 24 hours all sources 0911 (Given - Provider: Cally Fletcher RAura)1222 (Given - Provider: Fiona Driscoll R.N.)1734 (Given - Provider: Kai Donaldson R.N.)2112 (Given - Provider: Daniela Olmedo RSolitarioN.) 0731 (Given - Provider: Kai Donaldson R.N.)1141 (Given - Provider: Kai Donaldson R.N.)1638 (Given - Provider: Kai Donaldson R.N.)2106 (Given - Provider: Michael QuezadaNSolitario) 0818 (Given - Provider: Fiona Driscoll R.N.)1146 (Given - Provider: Fiona Driscoll R.N.) vrbpnslkgsbrr-hnguqmmd-s idocaine in Lipoderm 2%-5%-5% cream 1 g 1 g, topical, 4 times daily, First dose (after last modification) on Thu05/13/24 at 0000, Around drain site (or other site of pain) 0911 (Given - Provider: Cally Fletcher R.N.)1223 (Given - Provider: Fiona Driscoll R.N.)1734 (Given - Provider: Kai Donaldson R.N.)2112 (Given - Provider: Daniela Olmedo R.N.) 0731 (Given - Provider: Kai Donaldson R.N.)1141 (Given - Provider: Kai Donaldson R.N.)1638 (Given - Provider: Kai Donaldson R.N.)2106 (Given - Provider: Talon Salinas R.N.) 0818 (Given - Provider: Fiona Driscoll R.N.)1235 (Not Given - Provider: Fiona Driscoll R.N. - Reason: Patient/family refused) amLODIPine tablet 5 mg (Norvasc) 5 mg, oral, Daily, First dose on Thu05/13/24 at 0900 0911 (Given - Provider: Cally Fletcher R.N.) 0924 (Given - Provider: Kai Donaldson R.N.) 0818 (Given - Provider: Fiona Driscoll R.N.) buPROPion XL 24 hr tablet 300 mg (Wellbutrin XL) 300 mg, oral, Every morning, First dose on Thu05/13/24 at 0900, Swallow whole. Do NOT crush, chew, or split tablet. 0911 (Given - Provider: Cally Fletcher R.N.) 0924 (Given - Provider: Kai Donaldson R.N.) 0818 (Given - Provider: Fiona Driscoll R.N.) heparin (porcine) injection 5,000 Units 5,000 Units, subcutaneous, Every 8 hours scheduled, First dose on Thu05/13/24 at 0600 0509 (Given - Provider: Michael KleinNSolitario)1407 (Given - Provider: Fiona Driscoll R.N.)2112 (Given - Provider: Daniela Olmedo R.N.) 0548 (Given - Provider: Daniela Olmedo R.N.)1427 (Given - Provider: Kai Donaldson R.N.)2105 (Given - Provider: Talon Salinas R.N.) 0614 (Given - Provider: Talon Salinas R.N.) lamoTRIgine tablet 200 mg (LaMICtaL) 200 mg, oral, Daily, First dose on Thu05/13/24 at 0900 1041 (Given - Provider: Cally Fletcher R.N.) 0924 (Given - Provider: Kai Donaldson R.N.) 0818 (Given - Provider: Fiona Driscoll R.N.) lidocaine 5 % 1 patch (Lidoderm) 1 patch, transdermal, Administer over 12 Hours, Daily, First dose on Thu05/13/24 at 0900, Remove after 12 hours. 0912 (Medication Applied - Provider: Cally Fletcher R.N.)211 (Medication Removed - Provider: Daniela Olmedo R.N.) 0926 (Medication Applied - Provider: Kai Donaldson R.N.)210 (Medication Removed - Provider: Talon Salinas R.N.) 0820 (Not Given - Provider: Fiona Driscoll R.N. - Reason: Patient/family refused) mirtazapine tablet 30 mg (Remeron) 30 mg, oral, Daily at bedtime, First dose on Thu05/13/24 at 2100 2112 (Given - Provider: Dnaiela Olmedo R.N.) 210 (Given - Provider: Talon Salinas R.N.) nitrofurantoin monohydrate capsule 100 mg (Macrobid) 100 mg, oral, 2 times daily, First dose (after last modification) on Thu05/15/24 at 1115, For 7 days, Drug Monitoring Program: Pharmacist to adjust medication dosing based on indication and drug clearance factors., Indications: Lower UTI, Non-Catheter 1146 (Given - Provider: Fiona Driscoll R.N.) pantoprazole DR tablet 40 mg (Protonix) 40 mg, oral, Daily before morning meal, First dose on Thu05/13/24 at 0700, pantoprazole 40 mg oral daily was interchanged for omeprazole 20 or 40 mg oral daily Swallow whole. Do NOT crush, chew, or split tablet. 0509 (Given - Provider: Fanta Sullivan R.N.) 0732 (Given - Provider: Kai Donaldson R.N.) 0614 (Given - Provider: Talon Salinas R.N.) pregabalin capsule 25 mg (Lyrica) 25 mg, oral, 3 times daily, First dose on Thu05/14/24 at 2100 2106 (Given - Provider: Talon Salinas R.N.) 0818 (Given - Provider: Fiona Driscoll R.N.) sodium chloride 0.9 % injection 10-20 mL 10-20 mL, intravenous, Every 12 hours scheduled, First dose on Thu05/13/24 at 0900, Implanted Vascular Access Device (IVAD) Venous Non-Valved: When no infusion to maintain patency, flush 10 mL per port/lumen. 1041 (Given - Provider: Cally Fletcher R.N.)2119 (Given - Provider: Daniela Olmedo R.N.) 09 (Given - Provider: Kai Donaldson R.N.)2118 (Given - Provider: Talon Salinas R.N.) 08 (Given - Provider: Fiona Driscoll R.N.) sodium chloride 0.9 % injection 3 mL 3 mL, intravenous, Every 12 hours scheduled, First dose on Thu05/13/24 at 0900, Peripheral Intravenous Catheter and Rapid Infusion Catheter, when no infusion to maintain patency 1041 (Given - Provider: Cally Fletcher R.N.)2119 (Not Given - Provider: Dainela Olmedo R.N. - Reason: Order parameters not met) 925 (Given - Provider: Kai Donaldson R.N.)2118 (Not Given - Provider: Talon Salinas R.N. - Reason: Other - Comment: used 10 mL flush) 08 (Given - Provider: Fiona Driscoll R.N.) tamsulosin 24 hr capsule 0.4 mg (Flomax) 0.4 mg, oral, Daily at bedtime, First dose on Thu05/13/24 at 2100, Swallow whole. Do NOT crush, chew or open capsule. 2111 (Given - Provider: Daniela Olmedo R.N.) 2106 (Given - Provider: Talon Salinas R.N.) PRN Medication Order 05/13/2024 05/14/2024 05/15/2024 D5W infusion 1-999 mL/hr, intravenous, As needed, Medications Incompatible with 0.9% NaCL, Starting on Thu05/13/24 at 0124, Infuse at the same rate as the piggyback until tubing clears or up to a volume of 20 mL pre and post infusion for medications incompatible with 0.9% NaCL. Use 50 mL bag then discard. heparin flush 500-1,000 Units (COMPLETED) 500-1,000 Units, intra-catheter, During hospitalization, line care, Prior to discharge, Starting on Thu05/13/24 at 0124, For 1 dose, Implanted Vascular Access Device (IVAD) Venous Non-Valved: flush 5 mL (500 units) per port/lumen following saline flush prior to discharge. 1200 (Given - Provider: Harsh Gilmore R.N.) HYDROmorphone (PF) injection 0.2 mg (Dilaudid) 0.2 mg, intravenous, Every 1 hour PRN, severe pain or score 7-10 of 10, Starting on 05/14/24 at 0519 0538 (Given - Provider: Daniela Olmedo R.N.)0732 (Given - Provider: Kai Donaldson R.N.)0915 (Given - Provider: Kai Donaldson R.N.) HYDROmorphone (PF) injection 0.4 mg (Dilaudid) () 0.4 mg, intravenous, Every 2 hour PRN, severe pain or score 7-10 of 10, Starting on Rhianna 05/12/24 at 2347, For 24 hours 0012 (Given - Provider: Fanta Sullivan R.N.)0223 (Given - Provider: Fanta uSllivan R.N.)0712 (Given - Provider: Fanta Sullivan R.N.)1315 (Given - Provider: Tammy CurranSolitarioNSolitario)1733 (Given - Provider: Kai Donaldson R.N.) LORazepam tablet 0.5 mg (Ativan) 0.5 mg, oral, 3 times daily PRN, anxiety, Starting on Thu05/12/24 at 2358 0018 (Given - Provider: Fanta Sullivan RBillie.)0911 (Given - Provider: Cally Fletcher R.N.)2112 (Given - Provider: Daniela Olmedo R.N.) 2215 (Given - Provider: Michael QuezadaN.) methocarbamoL tablet 1,000 mg (Robaxin) 1,000 mg, oral, 4 times daily PRN, muscle spasms, Starting on Thu05/12/24 at 2358 0223 (Given - Provider: Fanta Sullivan R.N.)2024 (Given - Provider: Daniela Olmedo R.N.) 0326 (Given - Provider: Daniela Olmedo R.N.)1141 (Given - Provider: Kai Donaldson R.N.)2215 (Given - Provider: Talon Salinas R.N.) NaCl 0.9% infusion 1-999 mL/hr, intravenous, As needed, Between Consecutive Piggyback Medications, Starting on Thu05/13/24 at 0124, Infuse at the same rate as the piggyback until tubing clears or up to a volume of 20 mL. Select for IV medication administration when no maintenance IV available or when IV medications are not compatible with maintenance fluid. NaCl 0.9% infusion 1-999 mL/hr, intravenous, As needed, Post Medications (Hazardous/Low Fluid Volume), Starting on Thu05/13/24 at 0124, Infuse at the same rate as the medication until tubing cleared of medication, then discard. OLANZapine tablet 5 mg (ZyPREXA) 5 mg, oral, Bedtime PRN, nausea, vomiting, Starting on Thu05/12/24 at 2358 ondansetron (PF) injection 4 mg (Zofran) 4 mg, intravenous, Every 6 hours PRN, nausea, Starting on Thu05/13/24 at 0235 0302 (Given - Provider: Michael KleinNSolitario)1733 (Given - Provider: Kai Donaldson R.N.) 0732 (Given - Provider: Kai Donaldson R.N.) ondansetron ODT disintegrating tablet 4 mg (Zofran-ODT) 4 mg, oral, Every 6 hours PRN, nausea, vomiting, Starting on Rhianna 05/12/24 at 2311, When splitting ODT at bedside, handle with gloves and a pill splitter to prevent moisture contact. oxyCODONE IR tablet 10 mg (Roxicodone) (CANCELED) 10 mg, oral, Every 4 hours PRN, severe pain or score 7-10 of 10, Starting on Rhianna 05/12/24 at 2311 0012 (Given - Provider: Fanta Sullivan R.N.)0509 (Given - Provider: Fanta Sullivan R.N.) oxyCODONE IR tablet 10 mg (Roxicodone)(Linked Group 1) 10 mg, oral, Every 3 hours PRN, severe pain or score 7-10 of 10, Starting on 05/13/24 at 0657 0911 (Given - Provider: Cally Fletcher R.N.)1222 (Given - Provider: Fiona Driscoll RSolitarioNSolitario)1553 (Given - Provider: Kai Donaldson R.N.)2024 (Given - Provider: Daniela Olmedo R.N.) 0021 (Given - Provider: Daniela Olmedo R.N.)0326 (Given - Provider: Daniela Olmedo R.N.)0636 (Given - Provider: Tammy Cole.Curtis.)0924 (Given - Provider: Kai Donaldson R.N.)1426 (See Alternative - Provider: Kai Donaldson R.N.)1741 (Given - Provider: Kai Donaldson R.N.)2116 (Given - Provider: Michael QuezadaNSolitario) 0015 (Given - Provider: Talon Salinas R.N.)0312 (Given - Provider: Tammy Quezada.N.)0614 (Given - Provider: Talon Salinas R.N.)1238 (Given - Provider: Fiona Driscoll R.N.) oxyCODONE IR tablet 5 mg (Roxicodone)(Linked Group 1) 5 mg, oral, Every 3 hours PRN, moderate pain or score 4-6 of 10, Starting on Thu05/13/24 at 0657 0911 (See Alternative - Provider: Cally Fletcher R.N.)1222 (See Alternative - Provider: Fiona Driscoll R.N.)1553 (See Alternative - Provider: Kai Donaldson R.N.)2024 (See Alternative - Provider: Daniela Olmedo R.N.) 0021 (See Alternative - Provider: Daniela Olmedo R.N.)0326 (See Alternative - Provider: Daniela Olmedo R.N.)0636 (See Alternative - Provider: Daniela Olmedo R.N.)0924 (See Alternative - Provider: Kai Donaldson R.N.)1426 (Given - Provider: Kai Donaldson R.N.)1741 (See Alternative - Provider: Kai Donaldson R.N.)2116 (See Alternative - Provider: Talon Salinas R.N.) 0015 (See Alternative - Provider: Talon Salinas R.N.)0312 (See Alternative - Provider: Talon Salinas R.N.)0614 (See Alternative - Provider: Talon Salinas R.N.)1238 (See Alternative - Provider: Fiona Driscoll R.N.) prochlorperazine injection 5 mg (Compazine) 5 mg, intravenous, Every 6 hours PRN, nausea, vomiting, Starting on Thu05/13/24 at 0649 0712 (Given - Provider: Fanta Sullivan R.N.)1315 (Given - Provider: Fiona Driscoll R.N.) 0542 (Given - Provider: Daniela Olmedo R.N.) sodium chloride 0.9 % injection 10 mL 10 mL, intravenous, As needed, line care, Starting on Thu05/12/24 at 2311, Peripheral Intravenous Catheter and Rapid Infusion Catheter, prior to blood sampling, post blood transfusion or post blood sampling sodium chloride 0.9 % injection 10-20 mL 10-20 mL, intravenous, As needed, line care, Implanted Vascular Access Device (IVAD) Venous Non-Valved, Starting on Thu05/13/24 at 0124, Prior to and following infusion and between multiple consecutive infusions, flush 10 mL to each port/lumen. sodium chloride 0.9 % injection 10-20 mL 10-20 mL, intravenous, During hospitalization, line care, Prior to discharge, Starting on Thu05/13/24 at 0124, For 1 dose, Implanted Vascular Access Device (IVAD) Venous Non-Valved: Flush 10 mL per port/lumen followed by heparin flush prior to discharge. sodium chloride 0.9 % injection 20-40 mL 20-40 mL, intravenous, As needed, line care, Implanted Vascular Access Device (IVAD) Venous Non-Valved, Starting on Thu05/13/24 at 0124, Prior to blood sampling, post blood transfusion or post blood sampling, flush 20 mL per port/lumen. sodium chloride 0.9 % injection 3 mL 3 mL, intravenous, As needed, line care, Starting on Rhianna 05/12/24 at 2311, Prior to and following infusion and between multiple consecutive infusions: sodium chloride 0.9 % injection Linked Groups Order Group 1: oxyCODONE IR tablet 5 mg (Roxicodone)Jump to med 5 mg, oral, Every 3 hours PRN, moderate pain or score 4-6 of 10, Starting on Thu05/13/24 at 0657 Or oxyCODONE IR tablet 10 mg (Roxicodone)Jump to med 10 mg, oral, Every 3 hours PRN, severe pain or score 7-10 of 10, Starting on Thu05/13/24 at 0657 documented in this encounter Additional Health Concerns Infection Onset Date Last Indicated Resolved Time Protective Environment 04/26/2024 04/26/2024 Assessment Noted Time PHQ-9 Depression Total Score: 3 04/06/20 24 7:51 PM CDT documented as of this encounter Care Teams Benefits Coordinator Relationship Specialty Start Date End Date Kayla Rowland APRN, C.N.P. [address] [place] [address] [place] [phone] PCP - General 03/04/24 Roger Sorensen Therapist 02/14/20 documented as of this encounter
--- OUTSIDE RECORDS SUMMARY | 2024-05-25 00:04 | XMS_ITS | Encounter Summary ---
Author Organization [facility] Address [address] [place] [address] Care Team Providers Care Mathematical Sciences Professor Name Role Phone Kayla Rowland APRN, C.N.P. Primary Care Provide r Encounter Details Date Type Department Care Team (Late st Contact Info) Description 05/18/2024 Orders Only Division of Colon and Rectal Surgery in [place], [place] [address] [place] [phone] Jeremy Ventura APRN, C.N.P., M.S. [address] [place] [phone] Social History Tobacco Use Types Packs/Day Years Used Date Smoking Tobacco: Former Cigarettes 1 - 08/18/2015 Smokeless Tobacco: Never Alcohol Use Standard Drinks/Week Comments Not Currently 0 (1 standard drink = 0.6 oz pur e alcohol) [facility] Utilities Answer Date Recorded In the past 12 months has [facility] [employer], oil, or water [employer] threatened to shut off services in [...] often do you attend chur ch or muslim services? Never 12/06/2021 Do you belong to any clubs o r organizations such as bahai groups, unions, fraternal or athletic groups, or [...] Answer Date Recorded PHQ-2 Score 0 04/06/2024 [facility] - Occupational [...] your living situation today? I have a [facility] place to live 05/12/2024 Education Answer Date Recorded What is the highest level of school you have completed or the highest degree you have received? 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 [address] [place] [phone] 06/07/2024 9:20 AM CDT Lab Department of Infusion Therapy in [place], [place] [address] [place] [phone] Mariluz Soler M.D. [address] [place] [phone] 06/07/2024 11:20 AM CDT Office Visit Department of Oncology in [place], [place] [address] [place] [phone] Mariluz Soler M.D. [address] [place] [phone] 06/07/2024 1:00 PM CDT Infusion Department of Oncology in [place], [place] [address] [place] [phone] Mariluz Soler M.D. [address] [place] [phone] 06/17/2024 8:30 AM CDT Appointment Department of Laboratory Medicine and Pathology, [facility] in [place], [place] [address] [place] [phone] Anny Mcneill M.D. [address] [place] [phone] 06/17/2024 9:00 AM CDT Lab Department of Infusion Therapy in [place], [place] [address] [place] [phone] Anny Mcneill M.D. [address] [place] [phone] 06/17/2024 10:45 AM CDT Procedure visit Department of Urology in [place], [place] [address] [place] [phone] Anny Mcneill M.D. [address] [place] [phone] 06/17/2024 1:45 PM CDT Comprehensive Visit Department of Urology in [place], [place] [address] [place] [phone] Ayesha Romero P.A.-C. [address] [place] [phone] 06/17/2024 4:15 PM CDT Comprehensive Visit Department of Urology in [place], [place] [address] [place] [phone] Scotty Tom APRN, C.N.P. [address] [place] [phone] documented as of this encounter Goals Goal Patient Goal Type Associated Problems Recent Progress Patient-Stated? Author Eat a balanced, healthy diet Diet Worsening( 11:49 AM CDT) Yes Preemption, Nadia Boone R.N. Note: 02/14/20 - Has one regular meal daily (supper), otherwise not as hungry and snacks on fruit in AM, chips in evening. Will readdress his dietary goals and see if this makes a difference in his mood. Read Managing My Depression General Improving( 11:43 AM CDT) Yes Preemption, Nadia Boone R.N. Note: P. 46-48 Create a relapse prevention plan. Spend time with my dog again. General On track( 11:43 AM CDT) Yes Preemption, Michael McgheeN. Have some time to himself regularly. General On track( 11:47 AM CDT) Yes Preemption, Tammy Mcghee.N. Note: 01/24/20 - More structure to his day. 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 Recognizing he needs more personal time. Meet with therapist regularly General On track( 11:43 AM CDT) Yes Preemption, Nadia Boone R.N. Note: Dr. Pavan Sorensen, with [facility] in [place], [place]. Take your medication every day Lifestyle [...] documented as of this encounter Care Teams Mathematical Sciences Professor Relationship Specialty Start Date End Date Kayla Rowland APRN, C.N.P. [address] [place] [phone] PCP - General 03/04/24 Roger Sorensen Therapist 02/14/20 documented as of this encounter
--- OUTSIDE RECORDS SUMMARY | 2024-05-25 00:04 | XMS_ITS | Encounter Summary ---
Author Organization [facility] Address [address] [place] [address] Care Team Providers Care Detective Narcotics And Vice Name Role Phone Kayla Rowland APRN C.N.P. Primary Care Provide r Reason for Referral * Outpatient (Routine) - Closed Specialty Diagnoses / Procedures Referred By Contac t Referred To Contact Radiology Diagnoses Malignant Neoplasm Of Rectum (HCC) Secondary Malignant Neoplasm Liver (HCC) Abdominal Pain Procedures IR Abscess Drain Check Tej Quintanilla M.B., Mike., M.P.H. [address] [place] [phone] [facility] Referral ID Status Reason Start Date Expiration Date Visits Re quested Visits Authorized [id number] Closed 05/17/2024 05/17/2025 1 1 * Outpatient (Routine) - Closed Specialty Diagnoses / Procedures Referred By Contac t Referred To Contact Colon and Rectal Surgery Tej Quintanilla M.B., Mike., M.P.H. [address] [place] [phone] [facility] Referral ID Status Reason Start Date Expiration Date Visits Re quested Visits Authorized [id number] Closed 05/17/2024 11/16/2025 1 1 Scheduling Instructions Please schedule after IR drain check Encounter Details Date Type Department Care Team (Late st Contact Info) Description 05/17/2024 Orders Only Division of Colon and Rectal Surgery in [place], [place] [address] [place] [phone] Janell Chino M.A.N., R.N. [address] [place] [address] Malignant Neoplasm Of Rectum (HCC) (Primary Dx); Secondary Malignant Neoplasm Liver (HCC); Abdominal Pain Social History Tobacco Use Types Packs/Day Years Used Date Smoking Tobacco: Former Cigarettes 1 - 08/18/2015 Smokeless Tobacco: Never Alcohol Use Standard Drinks/Week Comments Not Currently 0 (1 standard drink = 0.6 oz pur e alcohol) [facility] Utilities Answer Date Recorded In the past 12 months has e electric, gas, oil, or water company [...] often do you attend chur ch or hoahaoism services? Never 12/06/2021 Do you belong to any clubs o r organizations such as restoration groups, unions, fraternal or athletic groups, or [...] Answer Date Recorded PHQ-2 Score 0 04/06/2024 [facility] - [...] your living situation today? I have a eileen place to live 05/12/2024 Education Answer Date Recorded What is the highest level of school you have completed or the highest degree you have received? 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 [address] [place] [phone] 06/07/2024 9:20 AM CDT Lab Department of Infusion Therapy in [place], [place] [address] [place] [phone] Mariluz Soler M.D. [address] [place] [phone] 06/07/2024 11:20 AM CDT Office Visit Department of Oncology in [place], [place] [address] [place] [phone] Mariluz Soler M.D. [address] [place] [phone] 06/07/2024 1:00 PM CDT Infusion Department of Oncology in [place], [place] [address] [place] [phone] Mariluz Soler M.D. [address] [place] [phone] 06/17/2024 8:30 AM CDT Appointment Department of Laboratory Medicine and Pathology, [facility], in [place], [place] [address] [place] [address] Anny Mcneill M.D. [address] [place] [phone] 06/17/2024 9:00 AM CDT Lab Department of Infusion Therapy in [place], [place] [address] [place] [phone] Anny Mcneill M.D. [address] [place] [phone] 06/17/2024 10:45 AM CDT Procedure visit Department of Urology in [place], [place] [address] [place] [phone] Anny Mcneill M.D. [address] [place] [phone] 06/17/2024 1:45 PM CDT Comprehensive Visit Department of Urology in [place], [place] [address] [place] [phone] Ayesha Romero, P.A.-C. [address] [place] [phone] 06/17/2024 4:15 PM CDT Comprehensive Visit Department of Urology in [place], [place] [address] [place] [phone] Scotty Tom APRN, C.N.P. [address] [place] [phone] Scheduled Referrals Name Type Priority Associated Diagnoses Orde r Schedule Colon and Rectal Surgery office visit (clinic) Outpatient Referral Routine Expected: 05/23/2024 (Approximate), Expires: 08/17/2025 documented as of this encounter Goals Goal [...] Depression General Improving( 11:43 AM CDT) Yes Nadia Nickerson R.N. Note: P. 46-48 Create a relapse prevention plan. Spend time with my dog again. General On track( 11:43 AM CDT) Yes Nadia Nickerson R.N. Have some time to himself regularly. General On track( 11:47 AM CDT) Yes [place], Nadia Boone R.N. Note: 01/24/20 - More structure to his day. 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 Recognizing he needs more personal time. Meet with therapist regularly General On track( 11:43 AM CDT) Yes AuburnNadia, R.N. Note: Dr. Pavan Sorensen, with [facility] [employer] in [place], [place]. Take your medication every day Lifestyle [...] back again documented as of this encounter Results * IR Abscess Drain [...] placed in the right lateral decubitus position. Pottery Machine Operator image showed a pigtail catheter projecting over [...] was placed in the right lateral decubitus position.Pottery Machine Operator image showed a pigtail catheter projecting over [...] 7-10 days. EP Tej Lee, Rich, M.P.H. IMG IR PROCEDURES documented in this encounter Visit Diagnoses Diagnosis Malignant Neoplasm Of Rectum (HCC)- Primary Secondary Malignant Neoplasm Liver (HCC) Abdominal Pain Malignant Neoplasm Of Rectum (HCC) Secondary Malignant Neoplasm Liver (HCC) Abdominal Pain documented in this encounter Additional Health Concerns Infection Onset Date Last Indicated Resolved Time Protective Environment 04/26/2024 04/26/2024 Assessment Noted Time PHQ-9 Depression Total Score: 3 04/06/20 24 7:51 PM CDT documented as of this encounter Care Teams Detective Narcotics And Vice Relationship Specialty Start Date End Date Kayla Rowland APRN, C.N.P. [address] [place] [phone] PCP - General 03/04/24 Roger Sorensen Therapist 02/14/20 documented as of this encounter
--- OUTSIDE RECORDS SUMMARY | 2024-05-25 00:04 | XMS_ITS | Encounter Summary ---
Author Organization [facility] Address [address] [place] [address] Care Team Providers Care Gutter Hanger Name Role Phone Kayla Rowland APRN, C.N.P. Primary Care Provide r Reason for Referral * Outpatient (Routine) - Authorized Specialty Diagnoses / Procedures Referred By Contac t Referred To Contact Urology Diagnoses Retention Urinary Anny Mcneill M.D. [address] [place] [phone] [facility] Referral ID Status Reason Start Date Expiration Date V isits Requested Visits Authorized [id number] Authorized 05/13/2024 11/12/2025 1 1 * Outpatient (Routine) - Authorized Specialty Diagnoses / Procedures Referred By Contac t Referred To Contact Diagnoses Retention Urinary Procedures URO Uroflow Anny Mcneill M.D. 200 [place] [phone] [facility] Referral ID Status Reason Start Date Expiration Date V isits Requested Visits Authorized [id number] Authorized 05/13/2024 05/13/2025 1 1 * Outpatient (Routine) - Authorized Specialty Diagnoses / Procedures Referred By Contac t Referred To Contact Urology Diagnoses Retention Urinary Anny Mcneill M.D. 200 [place] [address] [facility] Referral ID Status Reason Start Date Expiration Date V isits Requested Visits Authorized [id number] Authorized 05/13/2024 11/12/2025 1 1 Encounter Details Date Type Department Care Team (Late st Contact Info) Description 05/13/2024 Orders Only Department of Urology in [place], [place] [address] [place] [address] Anny cMneill M.D. [address] [place] [address] Retention Urinary (Primary Dx) Social History Tobacco Use Types Packs/Day Years Used Date Smoking Tobacco: Former Cigarettes 1 - 08/18/2015 Smokeless Tobacco: Never Alcohol Use Standard Drinks/Week Comments Not Currently 0 (1 standard drink = 0.6 oz pur e alcohol) [facility] Utilities Answer Date Recorded In the past 12 months has [employer], gas, oil, or water [employer] threatened to shut off services in your [...] often do you attend chur ch or buddhist services? Never 12/06/2021 Do you belong to any clubs o r organizations such as rastafari groups, unions, fraternal or athletic groups, or [...] Answer Date Recorded PHQ-2 Score 0 04/06/2024 [facility] Occupat ional [facility] - Occupational Stress Questionnaire Answer Date [...] your living situation today? I have a [facility] place to live 05/12/2024 Education Answer Date Recorded What is the highest level of school you have completed or the highest degree you have received? 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 [address] [place] [phone] 06/07/2024 9:20 AM CDT Lab Department of Infusion Therapy in [place], [place] [address] [place] [phone] Mariluz Soler M.D. [address] [place] [phone] 06/07/2024 11:20 AM CDT Office Visit Department of Oncology in [place], [place] [address] [place] [phone] Mariluz Soler M.D. [address] [place] [phone] 06/07/2024 1:00 PM CDT Infusion Department of Oncology in [place], [place] [address] [place] [phone] Mariluz Soler M.D. [address] [place] [phone] 06/17/2024 8:30 AM CDT Appointment Department of Laboratory Medicine and Pathology, [facility] in [place], [place] [address] [place] [phone] Anny Mcneill M.D. [address] [place] [phone] 06/17/2024 9:00 AM CDT Lab Department of Infusion Therapy in [place], [place] [address] [place] [phone] Anny Mcneill M.D. [address] [place] [phone] 06/17/2024 10:45 AM CDT Procedure visit Department of Urology in [place], [place] [address] [place] [phone] Anny Mcneill M.D. [address] [place] [phone] 06/17/2024 1:45 PM CDT Comprehensive Visit Department of Urology in [place], [place] [address] [place] [phone] Ayesha Romero, P.A.-CSolitario [address] [place] [phone] 06/17/2024 4:15 PM CDT Comprehensive Visit Department of Urology in [place], [place] [address] [place] [phone] Scotty Tom APRN, C.N.P. [address] [place] [phone] Scheduled Orders Name Type Priority Associated Diagnoses Orde r Schedule URO Uroflow Procedure Routine Retention Urinary 1 Occurrences starting 05/13/2024 until 08/13/2025 Urinalysis, with Microscopic: Urine, Midstream Lab Routine Retention Urinary 1 Occurrences starting 05/13/2024 until 08/13/2025 Bacterial Culture, Aerobic + Susceptibility, Urine Microbiology Routine Retention Urinary 1 Occurrences starting 05/13/2024 until 08/13/2025 PSA (Prostate-Specific Antigen), Diagnostic Lab Routine Retention Urinary 1 Occurrences starting 05/13/2024 until 08/13/2025 CBC without Differential Lab Routine Retention Urinary 1 Occurrences starting 05/13/2024 until 08/13/2025 Testosterone, Total and Free Lab Routine Retention Urinary 1 Occurrences starting 05/13/2024 until 08/13/2025 Lipid Panel Lab Routine Retention Urinary 1 Occurrences starting 05/13/2024 until 08/13/2025 Glucose, Fasting Lab Routine Retention Urinary 1 Occurrences starting 05/13/2024 until 08/13/2025 Scheduled Referrals Name Type Priority Associated Diagnoses Order Schedule Urology - General - urinary retention consult (clinic) Outpatient Referral Routine Retention Urinary Expected: 06/13/2024, Expires: 08/13/2025 Urology - Male - sexual dysfunction consult (clinic) Outpatient Referral Routine Retention Urinary Expected: 05/13/2024, Expires: 08/13/2025 documented as of this encounter Goals Goal Patient Goal Type Associated Problems Recent Progress Patient-Stated? Author Eat a balanced, healthy diet Diet Worsening( 11:49 AM CDT) Yes [place], Nadia Boone R.N. Note: 02/14/20 - Has one regular meal daily (supper), otherwise not as hungry and snacks on fruit in AM, chips in evening. Will readdress his dietary goals and see if this makes a difference in his mood. Read Managing My Depression General Improving( 11:43 AM CDT) Yes [place], aNdia Boone R.N. Note: P. 46-48 Create a relapse prevention plan. Spend time with my dog again. General On track( 11:43 AM CDT) Yes [place], Nadia Boone R.N. Have some time to himself regularly. General On track( 11:47 AM CDT) Yes [place], Nadia Boone R.N. Note: 01/24/20 - More structure to his day. 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 Recognizing he needs more personal time. Meet with therapist regularly General On track( 11:43 AM CDT) Yes [place], Nadia Boone R.N. Note: Dr. Pavan Sorensen, with [facility] in [place], [place]. Take your medication every day Lifestyle On track( 11:49 AM CDT) No [place], Michael McgheeN. Note: Increased Wellbutrin to 300 mg daily 02/09/20. PHQ-9 Total Score (max 27) < 5 Symptom Management 3(04/06/2024 7:51 PM CDT) No [place], Nadia Boone R.N. Note: Enrollment PHQ9=18 on 08/16/19 Patient goals at enrollment: 1. I'd like to have my depression be less intense. 2. I'd like to learn some coping strategies. 3. I'd like to learn how to keep my depression from flaring back again documented as of this encounter Visit Diagnoses Diagnosis Retention Urinary- Primary documented in this encounter Additional Health Concerns Infection Onset Date Last Indicated Resolved Time Protective Environment 04/26/2024 04/26/2024 Assessment Noted Time PHQ-9 Depression Total Score: 3 04/06/20 7:51 PM CDT documented as of this encounter Care Teams Gutter Hanger Relationship Specialty Start Date End Date Kayla Rowland APRN, C.N.P. [address] [place] [phone] PCP - General 03/04/24 Roger Sorensen Therapist 02/14/20 documented as of this encounter
--- OUTSIDE RECORDS SUMMARY | 2024-05-25 00:04 | XMS_ITS | Encounter Summary ---
Author Organization [facility] Address [address] [place] [phone] Care Team Providers Care Site Technician Name Role Phone Kayla Rowland APRN, C.N.P. Primary Care Provide r Encounter Details Date Type Department Care Team (Late st Contact Info) Description 05/17/2024 Clinical Communication Division of Colon and Rectal Surgery in [place], [place] [address] [place] [phone] Janell Chino M.A.N., R.N. [address] [place] [phone] Social History Tobacco Use Types Packs/Day Years Used Date Smoking Tobacco: Former Cigarettes 1 - 08/18/2015 Smokeless Tobacco: Never Alcohol Use Standard Drinks/Week Comments Not Currently 0 (1 standard drink = 0.6 oz pur e alcohol) [facility] Utilities Answer Date Recorded In the past 12 months has [facility] [employer], gas, oil, or water [employer] threatened to shut off services in your [...] How often do you attend chur or gnosticism services? Never 12/06/2021 Do you belong to any clubs o r organizations such as protestant groups, unions, fraternal or athletic groups, or [...] Answer Date Recorded PHQ-2 Score 0 04/06/2024 [facility] - Occupational Stress Questionnaire Answer Date [...] your living situation today? I have a [facility] place to live 05/12/2024 Education Answer Date Recorded What is the highest level of school you have completed or the highest degree you have received? Master's degree (e.g., MA, MS, Aba, MEd, WELDING MACHINE OPERATOR FRICTION, GAMALIEL) 08/15/2019 Sex and Gender Information Value Date Recorded Sex Assigned at Male 09/09/2023 12:48 PM EXPRESS MANAGER Gender Identity Male 08/15/2019 2:16 PM CDT Sexual Orientation Straight 08/15/2019 2: 16 PM CDT documented as of this encounter Miscellaneous Notes * Telephone Encounter - Janell Chino M.A.N., R.N. - 05/17/2024 2:44 PM CDT Information Discussed I contacted Brian to inform him of his upcoming appointments on 05/23. I let him know that Dr. Quintanilla would like him to have a sinogram to check the drain in the morning to see if it would be ok to come out or not. I also let him know that he is scheduled to see one or our advanced practice practitioners in the afternoon. I let him know that Dr. Quintanilla would have liked to see him, but he is on ER call and can not guarantee that he would be able to see him. I informed him that there is a note in for the advanced practice practitioner to contact Dr. Quintanilla for final confirmation on what the recommendations for the drain will be. All questions answered to the best of my ability. PLAN Disposition/Recommendation: self-care is appropriate at this time, patient encouraged to call back with questions Information/Education: patient/caller able to teach back Caller agreeable to plan of care: yes The following references were used: nursing clinical judgement and provider Dr. Quintanilla documented in this encounter Plan of Treatment Upcoming Encounters Date Type Department Care Team (Late st Contact Info) Description 06/01/2024 9:30 AM CDT Clinical Support Division of Colon and Rectal Surgery in [address] [phone] Armida Bullock APRN, C.N.P., M.S.N. [address] [place] [phone] 06/07/2024 9:20 AM CDT Lab Department of Infusion Therapy in [address] [phone] Mariluz Soler M.D. [address] [place] [phone] 06/07/2024 11:20 AM CDT Office Visit Department of Oncology in [address] [phone] Mariluz Soler M.D. [address] [place] [phone] 06/07/2024 1:00 PM CDT Infusion Department of Oncology in [address] [phone] Mariluz Soler M.D. [address] [place] [phone] 06/17/2024 8:30 AM CDT Appointment Department of Laboratory Medicine and Pathology, [facility], in [place], [place] [address] [place] [phone] Anny Mcneill M.D. [address] [place] [phone] 06/17/2024 9:00 AM CDT Lab Department of Infusion Therapy in [place], [place] [address] [place] [phone] Anny Mcneill M.D. [address] [place] [phone] 06/17/2024 10:45 AM CDT Procedure visit Department of Urology in [place], [place] [address] [place] [phone] Anny Mcneill M.D. [address] [place] [phone] 06/17/2024 1:45 PM CDT Comprehensive Visit Department of Urology in [place], [place] [address] [place] [phone] Ayesha Romero, P.A.-C. [address] [place] [phone] 06/17/2024 4:15 PM CDT Comprehensive Visit Department of Urology in [place], [place] [address] [place] [phone] Scotty Tom, DESIGN LEAD, C.N.P. [address] [place] [phone] documented as of this encounter Goals Goal Patient Goal Type Associated Problems Recent Progress Patient-Stated? Author Eat a balanced, healthy diet Diet Worsening( 11:49 AM CDT) Yes [place], Nadia K, R.N. Note: 02/14/20 - Has one regular meal daily (supper), otherwise not as hungry and snacks on fruit in AM, chips in evening. Will readdress his dietary goals and see if this makes a difference in his mood. Read Managing My Depression General Improving( 11:43 AM CDT) Yes [facility], Michael McgheeN. Note: P. 46-48 Create a relapse prevention plan. Spend time with my dog again. General On track( 11:43 AM CDT) Yes Nadia Nickerson R.N. Have some time to himself regularly. General On track( 11:47 AM CDT) Yes [facility], Tammy Mcghee.N. Note: 01/24/20 - More structure to his day. Thankful for this time to psychiatric social worker supervisor. Recognizing he needs more personal time. Meet with therapist regularly General On track( 11:43 AM CDT) Yes [place], Nadia Boone, R.N. Note: Dr. Pavan Sorensen, with [facility] in [place], [place]. Take your medication every day Lifestyle On track( 11:49 AM CDT) No [facility], Nadia Boone, R.N. Note: Increased Wellbutrin to 300 mg daily 02/09/20. PHQ-9 Total Score (max 27) < 5 Symptom Management 3(04/06/2024 7:51 PM CDT) No St. LeonNadia, R.N. Note: Enrollment PHQ9=18 on 08/16/19 Patient [...] documented as of this encounter Care Teams Site Technician Relationship Specialty Start Date End Date Kayla Rowland APRN, C.N.P. [address] [place] [phone] PCP - General 03/04/24 Roger Sorensen Therapist 02/14/20 documented as of this encounter
--- OUTSIDE RECORDS SUMMARY | 2024-05-25 00:05 | XMS_ITS | Encounter Summary ---
Author Organization [facility] Address [address] [place] [address] Care Team Providers Care Warehouse Shipping Clerk Name Role Phone Kayla Rowland APRN, C.N.P. 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 [address] [place] [phone] Rst [facility] [address] [place] [phone] Referral ID Status Reason Start Date Expiration Date V isits Requested Visits Authorized [id number] Authorized 02/11/2024 10/18/2024 24 99 Encounter Details Date Type Department Care Team (Late st Contact Info) Description 05/11/2024 2:00 PM CDT Infusion Department of Oncology in [place], [place] [address] [place] [phone] Patsy Bowser APRN, C.N.P., M.S. 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 Never 12/06/2021 Do you belong to any clubs o r organizations such as sabianist groups, unions, fraternal or athletic groups, or [...] Answer Date Recorded PHQ-2 Score 0 04/06/2024 [facility] of Occupat ional Health - Occupational [...] living situation today? I have a [facility] place to live 05/12/2024 Education Answer Date Recorded What is the highest level of school you have completed or the highest degree you have received? Master's degree (e.g., MA, MS, Aba, MEd, OPENER TENDER, GAMALIEL) 08/15/2019 Sex and Gender Information Value Date Recorded Sex Assigned at Male 09/09/2023 12:48 PM PLUMBER AND TINNER Gender Identity Male 08/15/2019 2:16 PM CDT Sexual Orientation Straight 08/15/2019 2: 16 PM CDT documented as of this encounter Last Filed Vital Signs Vital Sign Reading Time Taken Comments Blood Pressure 137/86 05/11/2024 1:38 PM CDT Pulse 72 05/11/2024 1:38 PM CDT Temperature 36.7 ??C (98.1 ??F) 05/11/2024 1:38 PM CD T Respiratory Rate - - Oxygen Saturation - - Inhaled Oxygen Concentration - - Weight 98.1 kg (216 lb 6.1 oz) 05/11/2024 1:38 P M CDT Height - - Body Mass Index 33.89 05/09/2024 9:25 PM CDT documented in this encounter Plan of Treatment Upcoming Encounters Date Type Department Care Team (Late st Contact Info) Description 06/01/2024 9:30 AM CDT Clinical Support Division of Colon and Rectal Surgery in [address] [phone] Armida Bullock APRN, C.N.P., M.S.N. [address] [place] [phone] 06/07/2024 9:20 AM CDT Lab Department of Infusion Therapy in [address] [phone] Mariluz Soler M.D. [address] [place] [phone] 06/07/2024 11:20 AM CDT Office Visit Department of Oncology in [address] [phone] Mariluz Soler M.D. [address] [place] [phone] 06/07/2024 1:00 PM CDT Infusion Department of Oncology in [place], [place] [address] [place] [phone] Mariluz Soler M.D. [address] [place] [phone] 06/17/2024 8:30 AM CDT Appointment Department of Laboratory Medicine and Pathology, [facility] in [place], [place] [address] [place] [phone] Anny Mcneill M.D. [address] [place] [phone] 06/17/2024 9:00 AM CDT Lab Department of Infusion Therapy in [place], [place] [address] [place] [phone] Anny Mcneill M.D. [address] [place] [phone] 06/17/2024 10:45 AM CDT Procedure visit Department of Urology in [place], [place] [address] [place] [phone] Anny Mcneill M.D. [address] [place] [phone] 06/17/2024 1:45 PM CDT Comprehensive Visit Department of Urology in [place], [place] [address] [place] [phone] Ayesha Romero, P.A.-C. [address] [place] [phone] 06/17/2024 4:15 PM CDT Comprehensive Visit Department of Urology in [place], [place] [address] [place] [phone] Scotty Tom APRN, C.N.P. [address] [place] [phone] documented as of this encounter Goals Goal [...] General On track( 11:47 AM CDT) Yes [place], Nadia Boone, R.N. Note: 01/24/20 - More structure to his day. 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 Recognizing he needs more personal time. Meet with therapist regularly General On track( 11:43 AM CDT) Yes Nadia Nickerson R.N. Note: Dr. Pavan Sorensen, with [facility] in [place], [place]. Take your medication every day Lifestyle On track( 11:49 AM CDT) No Nadia Nickerson, R.N. 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 Dose reflects TOTAL CALCULATED DOSE to be administered via continuous infusion over the specified length of treatment. Given 05/11/2024 1:51 PM CDT 30,000 Units documented in this encounter Additional Health Concerns Infection Onset Date Last Indicated Resolved Time Protective Environment 04/26/2024 04/26/2024 Assessment Noted Time PHQ-9 Depression Total Score: 3 04/06/20 24 7:51 PM CDT documented as of this encounter Care Teams Warehouse Shipping Clerk Relationship Specialty Start Date End Date Kayla Rowland APRN, C.N.P. [address] [place] [phone] PCP - General 03/04/24 Roger Sorensen Therapist 02/14/20 documented as of this encounter
--- OUTSIDE RECORDS SUMMARY | 2024-05-25 00:05 | XMS_ITS | Encounter Summary ---
Author Organization [facility] Address [address] [place] [id number] Care Team Providers Care Blindstitch Hemmer Name Role Phone Kayla Rowland APRN, C.N.P. Primary Care Provide r Encounter Details Date Type Department Care Team (Late st Contact Info) Description 05/12/2024 Orders Only Division of Colon and Rectal Surgery in [place], [place] [address] [place] [phone] Basia Colorado APRN, C.N.P., M.S.N. [address] [place] [phone] Abdominal Pain (Primary Dx) Social History Tobacco Use Types Packs/Day Years Used Date Smoking Tobacco: Former Cigarettes 1 - 08/18/2015 Smokeless Tobacco: Never Alcohol Use Standard Drinks/Week Comments Not Currently 0 (1 standard drink = 0.6 oz pur e alcohol) [facility] Utilities Answer Date Recorded In the past 12 months has [employer] gas, oil, or water [employer] threatened to shut off services in your [...] often do you attend chur ch or anabaptist services? Never 12/06/2021 Do you belong to any clubs o r organizations such as congregation groups, unions, fraternal or athletic groups, or [...] Answer Date Recorded PHQ-2 Score 0 04/06/2024 [facility] Answer [...] received? Master's degree (e.g., MA, MS, Aba, Spencer, BRASS POLISHER, GAMALIEL) 08/15/2019 Sex and Gender Information Value Date Recorded Sex Assigned at Male 09/09/2023 12:48 PM AIR CONDITIONING UNIT TESTER Gender Identity Male 08/15/2019 2:16 PM CDT Sexual Orientation Straight 08/15/2019 2: 16 PM CDT documented as of this encounter Plan of Treatment Upcoming Encounters Date Type Department Care Team (Late st Contact Info) Description 06/01/2024 9:30 AM CDT Clinical Support Division of Colon and Rectal Surgery in [place], [place] [address] [place] [phone] Armida Bullock APRN, C.N.P., M.S.N. [address] [place] [phone] 06/07/2024 9:20 AM CDT Lab Department of Infusion Therapy in [place], [place] [address] [place] [phone] Mariluz Soler M.D. [address] [place] [phone] 06/07/2024 11:20 AM CDT Office Visit Department of Oncology in [place], [place] [address] [place] [address] Mariluz Soler M.D. [address] [place] [phone] 06/07/2024 1:00 PM CDT Infusion Department of Oncology in [place], [place] [address] [place] [phone] Mariluz Soler M.D. [address] [place] [phone] 06/17/2024 8:30 AM CDT Appointment Department of Laboratory Medicine and Pathology, [facility] in [place], [place] [address] [place] [phone] Anny Mcneill M.D. [address] [place] [phone] 06/17/2024 9:00 AM CDT Lab Department of Infusion Therapy in [place], [place] [address] [place] [phone] Anny Mcneill M.D. [address] [place] [phone] 06/17/2024 10:45 AM CDT Procedure visit Department of Urology in [place], [place] [address] [place] [phone] Anny Mcneill M.D. [address] [place] [phone] 06/17/2024 1:45 PM CDT Comprehensive Visit Department of Urology in [place], [place] [address] [place] [address] Ayesha Romero P.A.-C. [address] [place] [address] 06/17/2024 4:15 PM CDT Comprehensive Visit Department of Urology in [place], [place] [address] [place] [phone] Scotty Tom APRN, C.N.P. [address] [place] [phone] documented as of this encounter Goals Goal Patient Goal Type Associated Problems Recent Progress Patient-Stated? Author Eat a balanced, healthy diet Diet Worsening( 11:49 AM CDT) Yes [place], Nadia Boone R.N. Note: 02/14/20 - Has one regular meal daily (supper), otherwise not as hungry and snacks on fruit in AM, chips in evening. Will readdress his dietary goals and see if this makes a difference in his mood. Read Managing My Depression General Improving( 11:43 AM CDT) Yes [place], Nadia Boone R.N. Note: P. 46-48 Create a relapse prevention plan. Spend time with my dog again. General On track( 11:43 AM CDT) Yes [place], Michael McgheeN. Have some time to himself regularly. General On track( 11:47 AM CDT) Yes [place], Nadia Boone R.N. Note: 01/24/20 - More structure to his day. 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 Recognizing he needs more personal time. Meet with therapist regularly General On track( 11:43 AM CDT) Yes [place], Nadia Boone R.N. Note: Dr. Pavan Sorensen, with [facility] in [place], [place]. Take your medication every day Lifestyle [...] as of this encounter Visit Diagnoses Diagnosis Abdominal Pain- Primary documented in this encounter Additional Health Concerns Infection Onset Date Last Indicated Resolved Time Protective Environment 04/26/2024 04/26/2024 Assessment Noted Time PHQ-9 Depression Total Score: 3 04/06/20 24 7:51 PM CDT documented as of this encounter Care Teams Blindstitch Hemmer Relationship Specialty Start Date End Date Kayla Rowland APRN, C.N.P. [address] [place] [phone] PCP - General 03/04/24 Roger Sorensen Therapist 02/14/20 documented as of this encounter
--- OUTSIDE RECORDS SUMMARY | 2024-05-25 00:05 | XMS_ITS | Encounter Summary ---
Author Organization [facility] Address [address] [place] [phone] Care Team Providers Care Master Technician Name Role Phone Kayla Rowland APRN, C.N.P. Primary Care Provide r Reason for Visit * Reason Onset Date Comments Post Op Sinogram Follow Up 05/12/2024 Encounter Details Date Type Department Care Team (Latest Contact Info) Description 05/12/2024 Clinical Communication Division of Colon and Rectal Surgery in [place], [place] [address] [place] [phone] Tej Quintanilla M.B., Ch.B., M.P.H. [address] [place] [phone] Post Op Sinogram Follow Up Social History Tobacco Use Types Packs/Day Years Used Date Smoking Tobacco: Former Cigarettes 1 - 08/18/2015 Smokeless Tobacco: Never Alcohol Use Standard Drinks/Week Comments Not Currently 0 (1 standard drink = 0.6 oz pur e alcohol) [facility] Utilities Answer Date Recorded In the past 12 months has [employer], gas, oil, or water [employer] threatened to shut off services in your [...] Answer Date Recorded PHQ-2 Score 0 04/06/2024 [facility] - Occupational Stress Questionnaire Answer Date [...] your living situation today? I have a [facility] place to live 05/12/2024 Education Answer Date Recorded What is the highest level of school you have completed or the highest degree you have received? Master's degree (e.g., MA, MS, Aba, MEd, VALUATION MANAGER, GAMALIEL) 08/15/2019 Sex and Gender Information Value Date Recorded Sex Assigned at Male 09/09/2023 12:48 PM BRICKLAYER SUPERVISOR Gender Identity Male 08/15/2019 2:16 PM CDT Sexual Orientation Straight 08/15/2019 2: 16 PM CDT documented as of this encounter Plan of Treatment Upcoming Encounters Date Type Department Care Team (Late st Contact Info) Description 06/01/2024 9:30 AM CDT Clinical Support Division of Colon and Rectal Surgery in [place], [place] [address] [place] [phone] Armida Bullock APRN, C.N.P., M.S.N. 200 [place] [phone] 06/07/2024 9:20 AM CDT Lab Department of Infusion Therapy in [place], [place] [address] [place] [phone] Mariluz Soler M.D. [address] [place] [phone] 06/07/2024 11:20 AM CDT Office Visit Department of Oncology in [place], [place] [address] [place] [phone] Mariluz Soler M.D. [address] [place] [phone] 06/07/2024 1:00 PM CDT Infusion Department of Oncology in [place], [place] [address] [place] [phone] Mariluz Soler M.D. [address] [place] [phone] 06/17/2024 8:30 AM CDT Appointment Department of Laboratory Medicine and Pathology, [facility], in [place], [place] [address] [place] [phone] Anny Mcneill M.D. [address] [place] [phone] 06/17/2024 9:00 AM CDT Lab Department of Infusion Therapy in [place], [place] [address] [place] [phone] Anny Mcneill M.D. [address] [place] [phone] 06/17/2024 10:45 AM CDT Procedure visit Department of Urology in [place], [place] [address] [place] [phone] Anny Mcneill M.D. [address] [place] [phone] 06/17/2024 1:45 PM CDT Comprehensive Visit Department of Urology in [place], [place] [address] [place] [phone] Ayesha Romero P.A.-C. [address] [place] [phone] 06/17/2024 4:15 PM CDT Comprehensive Visit Department of Urology in [place], [place] [address] [place] [phone] Scotty Tom APRN, C.N.P. [address] [place] [phone] documented as of this encounter Goals Goal Patient Goal Type Associated Problems Recent Progress Patient-Stated? Author Eat a balanced, healthy diet Diet Worsening( 11:49 AM CDT) Yes [place], Nadia Boone R.N. Note: 02/14/20 - Has one regular meal daily (supper), otherwise not as hungry and snacks on fruit in AM, chips in evening. Will readdress his dietary goals and see if this makes a difference in his mood. Read Managing My Depression General Improving( 11:43 AM CDT) Yes [place]onNadia R.N. Note: P. 46-48 Create a relapse prevention plan. Spend time with my dog again. General On track( 11:43 AM CDT) Yes [place]ia R.N. Have some time to himself regularly. General On track( 11:47 AM CDT) Yes [place]ia R.N. Note: 01/24/20 - More structure to his day. 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 Recognizing he needs more personal time. Meet with therapist regularly General On track( 11:43 AM CDT) Yes [place]onNadia R.N. Note: Dr. Pavan Sorensen, with [facility] in [place], [place]. Take your medication every day Lifestyle On track( 020 11:49 AM CDT) No Nadia Nickerson R.N. Note: Increased Wellbutrin to 300 mg daily 02/09/20. PHQ-9 Total Score (max 27) < 5 Symptom Management 3(04/06/2024 7:51 PM CDT) No [place], Nadia Boone R.N. Note: Enrollment PHQ9=18 on [...] documented as of this encounter Care Teams Master Technician Relationship Specialty Start Date End Date Kayla Rowland APRN, C.N.P. [address] [place] [phone] PCP - General 03/04/24 Roger Sorensen Therapist 02/14/20 documented as of this encounter
--- OUTSIDE RECORDS SUMMARY | 2024-05-25 00:05 | XMS_ITS | Encounter Summary ---
Author Organization [facility] Address [address] [place] [id number] Care Team Providers Care Clinical Pharmacy Manager Name Role Phone Kayla Rowland APRN, C.N.P. Primary Care Provide r Reason for Referral * Outpatient (Routine) - Closed Specialty Diagnoses / Procedures Referred By Contac t Referred To Contact Colon and Rectal Surgery Maria L Grayson APRN, C.N.P., D.N.P. [address] [place] [phone] Tej Quintanilla M.B., Ch.B., M.P.H. [address] [place] [phone] Referral ID Status Reason Start Date Expiration Date Visits Re quested Visits Authorized [id number] Closed 05/11/2024 11/10/2025 [address] Quintanilla. Will need drain removed. No sinogram needed. Reason for Visit * Reason Comments Pelvic Pain * Auth/Cert (Routine) Specialty Diagnoses / Procedures Referred By Contac t Referred To Contact Diagnoses Other Intra Abdominal And Pelvic Swelling Mass And Lump Procedures ADMIT TO INPATIENT Referral ID Status Reason Start Date Expiration Date Visits Re quested Visits Authorized [id number] 1 1 Encounter Details Date Type Department Care Team (Latest Contact Info) Description 05/09/2024 2:37 PM CDT - 05/11/2024 12:42 PM CDT Hospital Encounter [facility], [facility], [facility], Sixth Floor [address] [place] [phone] Kai Petersen M.D., M.S. [address] [place] [phone] Tej Quintanilla M.B., Ch.B., M.P.H. [address] [place] [phone] Other Intra Abdominal And Pelvic Swelling Mass And Lump (Primary Dx) Discharge Disposition: Home or Self Care Social History Tobacco Use Types Packs/Day Years Used Date Smoking Tobacco: Former Cigarettes 1 - 08/18/2015 Smokeless Tobacco: Never Alcohol Use Standard Drinks/Week Comments Not Currently 0 (1 standard drink = 0.6 oz pur e alcohol) [facility] Utilities Answer Date Recorded In the past 12 months has [employer], gas, oil, or water [employer] threatened to shut off services in your [...] week 12/06/2021 How often do you attend [facility] or mu-ism services? Never 12/06/2021 Do you belong to any clubs o r organizations such as buddhism groups, unions, fraternal or athletic groups, or [...] Answer Date Recorded PHQ-2 Score 0 04/06/2024 [facility] - Occupational Stress Questionnaire Answer Date [...] your living situation today? I have a [facility] place to live 05/12/2024 Education Answer Date Recorded What is the highest level of school you have completed or the highest degree you have received? 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 Gender Identity Male 08/15/2019 2:16 PM CDT Sexual Orientation Straight 08/15/2019 2: 16 PM CDT documented as of this encounter Last Filed Vital Signs Vital Sign Reading Time Taken Comments Blood Pressure 144/98 05/11/2024 11:00 AM CDT Pulse 57 05/11/2024 5:00 AM CDT Temperature 37.5 ??C (99.5 ??F) 05/11/2024 11:00 AM C DT Respiratory Rate 16 05/11/2024 11:00 AM CDT Oxygen Saturation 98% 05/11/2024 11:00 AM CDT Inhaled Oxygen Concentration - - Weight 96.4 kg (212 lb 8.4 oz) 05/10/2024 6:33 A M CDT Height 170.2 cm (5' 7) 05/09/2024 9:25 PM CDT Body Mass Index 33.29 05/09/2024 9:25 PM CDT documented in this encounter Discharge Summaries * Maria L Grayson, JAD, C.N.P., D.N.P. - 05/11/2024 10:20 AM CDT DISCHARGE SUMMARY BRIEF OVERVIEW Hospital: [facility] Discharge Provider: Tej Quintanilla M.B. Primary Team: T Colon and Rectal Surgery - [place] Primary Care Providers: Kayla Rowland APRN, C.N.P. 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 * DISCHARGE DISPOSITION Home or Self Care [1] ACTIVE ISSUES REQUIRING FOLLOW UP - Sinogram and clinic visit in 10 days after dismissal-requested and pending OUTPATIENT FOLLOW UP Scheduled Appointments 05/11/2024 2:00 PM ONC CHAIR CHEMO OVERFLOW [facility] 05/23/2024 8:15 AM INF ONC PORT DRAW 01 [facility] 05/23/2024 10:40 AM Patsy Bowser APRN, C.N.P., M.S. Oncology 05/24/2024 7:30 AM ONC CHAIR CHEMO 09 [facility] For appointment details refer to your Patient Appointment Guide. TEST RESULTS PENDING AT DISCHARGE Pending Labs Order Current Status Fungal Culture, Routine In process Bacterial Culture, Aerobic + Susceptibility Preliminary result DETAILS OF HOSPITAL STAY REASON FOR ADMISSION Other Intra Abdominal And Pelvic Swelling Mass And Lump HOSPITAL COURSE PRIMARY DIAGNOSIS: Pelvic fluid collection PROCEDURE: 05/10 CT drain placement 05/10 CT abdomen and pelvis angiogram PATHOLOGY: n/a INCISION ASSESSMENT: n/a DRAINS: Interventional radiology placed a drain. Patient will return for sinogram. Drain flushing was initiated and patient was intstructed on drain cares. ADDITIONAL DIAGNOSES/COMPLICATIONS/CHRONIC CONDITIONS ADDRESSED DURING HOSPITALIZATION: #Pelvic Fluid Collection CT-guided aspiration with drain placement. Preliminary bacterial culture and g stain with Gram-negative bacillus. However with no leukocytosis and adequate source control at this time with drain, no need for patient to dismiss with antibiotics. Patient is to return in 10 days from dismissal with colorectal clinic visit to evaluate readiness for drain removal. # history of hepatic artery infusion pump Contacted Patsy Bowser, regarding refill for pump. Patient is scheduled for hepatic artery infusion pump refill/instillation on 05/11 at 2:[address] Viera recommended obtaining a CT abdomen and pelvis to look at the vasculature around hepatic artery. CT of the abdomen and pelvis from 05/10/24 revealed wide patency of the common hepatic artery. The celiac axis, superior mesenteric artery, accessory and main right renal arteries an accessory and main left renal arteries are also widely patent. 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 To iliac arterial vasculature and bilateral common femoral arteries are also widely patent. No new recommendations from hepatobiliary surgical team at this point Follow-up -sinogram with colorectal clinic visit with Dr Quinatnilla in 10 days- requested and pending CONSULTS ORDERED DURING THIS ADMISSION None CONDITION AT DISCHARGE stable Discharge instructions were provided to the patient and caregiver(s). documented in this encounter Medications at Time of Discharge Medication Sig Dispensed Refills Start Date End Date amLODIPine (NORVASC) 5 mg tablet TAKE 1 [...] tablet Take 200 mg by mouth daily. lidocaine-prilocaine (EMLA) 2.5-2.5 % cream Apply 1 [...] does not need while in the hospital mirtazapine (Remeron) 30 mg tablet Take 30 [...] morning before breakfast. 30 tablet 1 04/03/2024 prochlorperazine (Compazine) 10 mg tabletIndications:Ma lignant Neoplasm [...] daily as needed. 60 g 11 06/01/2023 heparin 100 unit/mL syringeIndications:M alignant Neoplasm Of Colon Rectosigmoid Junction (HCC),Secondary Malignant Neoplasm Liver (HCC) 5 mL (500 Units total) by intra-catheter route once as needed for line care for up to 1 dose. Flush IV line AFTER 0.9% Sodium Chloride flush 04/03/2024 05/13/2024 heparin 100 unit/mL syringeIndications:M alignant Neoplasm Of Colon Rectosigmoid Junction (HCC),Secondary Malignant Neoplasm Liver (HCC) Flush 5 mL (500 Units total) by intra-catheter route once as needed for line care for up to 1 dose. Flush IV line AFTER 0.9% Sodium Chloride flush 04/03/2024 05/13/2024 heparin 100 unit/mL syringeIndications:M alignant Neoplasm Of Colon Rectosigmoid Junction (HCC),Secondary Malignant Neoplasm Liver (HCC) 5 mL (500 Units total) by intra-catheter route once as needed for line care for up to 1 dose. Flush IV line AFTER 0.9% Sodium Chloride flush 04/03/2024 05/13/2024 lidocaine (LIDODERM) 5 % adhesive patch,medicated Place 1 patch on the skin daily. Apply to area of most pain. 5 patch 04/03/2024 05/15/2024 methocarbamoL (Robaxin) 500 mg tablet Take 2 tablets (1,000 mg total) by mouth 4 (four) times a day as needed for muscle spasms. 35 tablet 04/16/2024 05/15/2024 oxyCODONE (Roxicodone) 5 mg immediate release tabletIndications:Ac james Pain Take 1 tablet (5 mg total) by mouth every 4 (four) hours as needed for severe pain or score 7-10 of 10 Indication: Acute Pain. 15 tablet 05/08/2024 05/15/2024 tamsulosin (FLOMAX) 0.4 mg 24 hr capsule Take 1 capsule (0.4 mg total) by mouth daily. 30 capsule 1 04/03/2024 05/20/2024 documented as of this encounter Progress Notes * Jennifer Hernandez - 05/11/2024 10:54 AM CDT [facility] Spiritual Care Progress Note Patient: Heriberto Snowden Age:43 y.o. Location: [id number] Reason(s) for encounter: Spiritual Care contact to introduce spiritual care service and assess for potential spiritual care needs. Summary: I was able to meet with Mr. Heriberto Snowden briefly this morning. ???Brian?? was aware he wasbeing discharged today. One of the medical staff members entered and spoke with Brian about dischargeexpectations. Brian has no spiritual concerns. He was recently baptized. Brian was made aware of the spiritual resources available to him, should any further needs arise. Spiritual Assessment Synagogue Identification / Spiritual Practices: Brian is Episcopal. Coping and support: One of Brian's family members was present in his room. Spiritual well-being, hopes and resources: Brian was recently baptized. Spiritual Care interventions: Introduced the role as member of the interdisciplinary care team and assessed spiritual care needs/concerns of patient and/or family Explored ways patient and family might observe mu-ism rituals within confines of hospital setting, considering current admission. Spiritual Care outcomes: Patient/family became familiar with the role of spiritual care provider and identified spiritual care needs. Patient/family is appreciative of spiritual care support but expressed no need of further spiritualcare visits. Spiritual Care Plan / Recommendations: Discharge pending; no further spiritual needs anticipated. Chaplains can be contacted by paging [phone] ([place]) or [phone] ([place]). * Ravi Covarrubias M.D., Ph.D. - 05/11/2024 6:55 AM CDT SUBJECTIVE Received IR guided transgluteal drain in the presacral fluid collection, serous with some suspendedsolid light holden matter, 45 mL out past 24 hours. Some pain present but well-controlled, tolerating a diet with 250 mL of stool. OBJECTIVE Abdomen: Nondistended, nontender DLI with stool in bag, gas present Pelvis: Transgluteal drain left side Well healed surgical incisions Hepatic artery infusion pump palpable on left abdomen, no concerns Cultures: Gram-negative bacilli growing from drained collection PLAN Heriberto Snowden is a 43 y.o. male who is status post LAR with anastomosis and DLI creation as well as hepatic artery infusion pump placement and liver ablation/resections on March 29 for metastatic colorectal adenocarcinoma. Admitted due to pelvic pain secondary to presacral fluid collection, transgluteal drain placed by IR yesterday. Collection had a positive Gram stain and now culture significant for Gram-negative bacilli. Not concerned for leak based on drain characteristics, patient was diverted. Underwent CTA per hepatic artery infusion team. Plan: - discharge today -10 day follow up with CRS and RDA/PA -no indication for antibiotics as patient was clinically well * Ravi Covarrubias M.D., Ph.D. - 05/10/2024 8:26 AM CDT SUBJECTIVE Pain well controlled, does not tolerate oxy well as he gets nauseous. 200 mL out of his DLI with gas. OBJECTIVE Abdomen: Nondistended, nontender DLI with stool in bag, gas present Well healed surgical incisions Hepatic artery infusion pump palpable on left abdomen, no concerns PLAN Heriberto Snowden is a 43 y.o. male who is status post LAR with anastomosis and DLI creation as well as hepatic artery infusion pump placement and liver ablation/resections on March 29 for metastatic colorectal adenocarcinoma. He was had developing/worsening pelvic pain over the past few days. Became severe yesterday went tot emergency department where CT scan showed a presacral collection. This is either organized hematoma, abscess in an old hematoma or less likely a leak. Plan: - IR drainage with cultures sent - hold antibiotics -touch base with Oncology for pump filled/continuing chemo -maintenance fluid while NPO * Garret Holly PharmMamie, R.Ph. - 05/10/2024 7:37 AM CDT Pharmacist Progress Note Reason for admission: 43 y.o. male admitted for evaluation of fluid collection in his pelvis on 05/09/2024. PMH: Depression, Colon cancer, STEMI OBJECTIVE Home medications: Held: PRN meds and supplements Changed: None Patient own medications: none Review of Systems Neuro: pain 4 - 5, acetaminophen, prn oxycodone CV: VSS GI: NPO for procedure today FEN: Lytes WNL Renal: UOP adequate ID: afebrile, CT today - Watch C&S Prophylaxis: SQH 5,000 TID - Held today for procedure ASSESSMENT / PLAN Pain Oxy available ID Not on antibiotics - Watch CT C&S if drawn - Low threshold to start antibiotics if gets symptomatic. Changes to medications anticipated at discharge: pain regimen, abx ? [place] 6-2 [place] [phone] with questions. Francois Holly PharmSolitarioD., R.Ph. * Lashonda Guerra Pharm.D., R.Ph. - 05/09/2024 10:07 PM CDT Images from the original note were not included. Admission Medication History Note Adherence issues: No concerns Medication list source: Patient Medication related information: -pt unclear if taking omeprazole or pantoprazole -unclear if still taking mirtazapine though last dispense was yesterday -okay to hold topicals. Pt uses medical cannabis regularly though did not bring any inpatient Prior to Admission Medications Med List Status: Pharmacy Complete Set By: Lashonda Guerra, Pharm.D., R.Ph. at 05/09/2024 10:06 PM Taking? Last Dose Informant Start Date End Date LT amLODIPine (NORVASC) 5 mg tablet Past Week Self 02/08/24 -- TAKE 1 TABLET (5 MG TOTAL) BY MOUTH DAILY. buPROPion XL (WELLBUTRIN XL) 300 mg 24 hr tablet 05/09/2024 Self 03/13/22 -- Take 1 tablet (300 [...] unit/mL syringe () -- -- 04/03/24 04/03/24 Flush 5 mL (500 Units total) by intra-catheter route once as needed for line care for up to 1 dose.Flush IV line AFTER 0.9% Sodium Chloride flush [...] 5 days. lamoTRIgine (LaMICtaL) 200 mg tablet 05/09/2024 -- -- -- Take 200 mg by mouth daily. lidocaine (LIDODERM) 5 % adhesive patch,medicated Unknown -- 04/03/24 -- Place 1 patch on the skin daily. Apply to area of most pain. lidocaine-prilocaine (EMLA) 2.5-2.5 % cream Unknown -- 04/03/24 -- Apply 1 Application topically as needed for pain. Wearing gloves, gently squeeze prescribed amount of EMLA?? directly onto intact skin of desired numbing site. Do not rub in. Cover topical Lidocaine/Prilocaine (EMLA??) with occlusive dressing, to prevent patient from accidental ingestion or eye contact. Apply 60 minutes prior to indicated procedure. LORazepam (Ativan) 0.5 mg tablet Past Week -- 04/19/24 -- Take 1 tablet (0.5 mg total) by mouth 3 (three) times a day as needed for anxiety. medical cannabis oil inhalation Past Week Self -- -- Inhale as needed (nauesa and anxiety). THC component: 30 mg Patient does not need while in the hospital methocarbamoL (Robaxin) 500 mg tablet Past Month -- 04/16/24 -- Take 2 tablets (1,000 mg total) by mouth 4 (four) times a day as needed for muscle spasms. mirtazapine (Remeron) 30 mg tablet -- -- 05/08/24 -- Take 30 mg by mouth at bedtime. OLANZapine (ZyPREXA) 5 mg tablet -- -- 04/26/24 04/26/25 Take 1 tablet (5 mg total) by mouth at bedtime as needed (nausea, vomiting). May take dose early ifneeded. omeprazole (PriLOSEC) [address] capsule 05/09/2024 -- 04/26/24 04/21/25 Take 1 capsule (40 mg total) by mouth daily before morning meal. Notes: High dose PPI to continue while patient is getting hepatic artery infusion chemotherapy. ondansetron (Zofran) 8 mg tablet Past Week -- 04/26/24 04/26/25 Take 1 tablet (8 mg total) by mouth every 8 (eight) hours as needed for nausea or vomiting (unrelieved by prochlorperazine). oxyCODONE (Roxicodone) 5 mg immediate release tablet 05/09/2024 -- 05/08/24 -- Take 1 tablet (5 mg total) by mouth every 4 (four) hours as needed for severe pain or score 7-10 of10 Indication: Acute Pain. pantoprazole (PROTONIX) 40 mg EC tablet -- -- 04/03/24 -- Take 1 tablet (40 mg total) by mouth every morning before breakfast. prochlorperazine (Compazine) 10 mg tablet 05/08/2024 -- 04/26/24 04/26/25 Take 1 tablet (10 mg total) by mouth every 6 (six) hours as needed for nausea or vomiting. prochlorperazine (COMPAZINE) 5 mg tablet 05/08/2024 -- 04/03/24 -- Take 1 tablet (5 mg total) by mouth every 6 (six) hours as needed for nausea or vomiting. sildenafiL (Viagra) 50 mg tablet Unknown -- 05/04/24 -- Take 1 tablet (50 mg total) by mouth daily as needed for erectile dysfunction. tacrolimus (PROTOPIC) 0.1 % ointment Unknown Self 09/23/23 -- Apply 1 Application topically 2 (two) times a day as needed (psoriasis). tamsulosin (FLOMAX) 0.4 mg 24 hr capsule 05/08/2024 -- 04/03/24 -- Take 1 capsule (0.4 [...] four times daily as needed for psoriasis documented in this encounter H&P Notes * Oskar Rivera M.B., B.Ch., B.A.O., Ph.D. - 05/09/2024 6:53 PM CDT Presented to the Emergency Department today Recent hepatic arterial infusion pump insertion, multiple wedge resections of the liver, cholecystectomy, ablation of liver met, cholecystectomy, anterior resection and formation of defunctioning loop ileostomy. He presented with increasing pain and discomfort in his posterior pelvis (he feels it just in frontof his sacrococcygeal area). He had a CT scan which showed an increasing fluid collection in his pelvis. He had some temperatures a couple of weeks ago but none recently. He has not had any antibiotics. He had his first dose of chemotherapy through his hepatic arterial infusion pump 2 weeks ago. The collection appears amenable to drainage on CT. His abdominal examination revealed a soft and non-tender abdomen with no rebound, guarding or rigidity. His stoma was functioning. His wounds have healed well. Recent Results (from the past 24 hour(s)) Lipase Collection Time: 05/09/24 2:52 PM Result Value Lipase, S 31 CBC with Differential, Blood Collection Time: 05/09/24 2:53 PM Result Value Hemoglobin 13.9 Hematocrit 42.5 Erythrocytes 4.75 MCV 89.5 RBC Distrib Width 13.1 Platelet Count 253 Leukocytes 6.7 Neutrophils 4.96 Lymphocytes 0.97 Monocytes 0.58 Eosinophils 0.11 Basophils 0.04 Basic Metabolic Panel Collection Time: 05/09/24 2:53 PM Result Value Potassium, P 4.1 Sodium, P 136 Chloride, P 100 Bicarbonate, P 27 Anion Gap, P 9 BUN (Blood Urea Nitrogen), P 15 Creatinine 0.75 Estimated GFR (eGFR) >90 Calcium, Total, P 9.4 Glucose, P 93 CRP (C-Reactive Protein) Collection Time: 05/09/24 2:53 PM Result Value C-Reactive Protein (CRP), S 45.4 (H) Prothrombin Time (PT) Collection Time: 05/09/24 2:53 PM Result Value Prothrombin Time, P 11.6 INR 1.1 Hepatic Function Panel Collection Time: 05/09/24 2:53 PM Result Value Bilirubin, Total, S 0.4 Bilirubin, Direct, S <0.2 Aspartate Aminotransferase (AST), S 34 Alanine Aminotransferase (ALT), S 69 (H) Alkaline Phosphatase, S 167 (H) Albumin, S 4.1 Protein, Total, S 6.4 Lactate Collection Time: 05/09/24 2:53 PM Result Value Lactate, P 1.0 EXAM: CT ABDOMEN PELVIS WITH IV CONTRAST COMPARISON: May 06, 2024 FINDINGS: Increase in size of presacral fluid collection, now measuring 5.3 x 3.9 x 7.3 cm, versus 4.9 x 2.7 x 8.4 cm. It is now convex anteriorly where as previously it was concave. Multiple hepatic ablation and wedge resection defects appear unchanged. Decrease in tiny gas pockets in the large ablation defect at the hepatic dome. No new hepatic lesions. Hepatic artery infusion pump with infusion chamber in the left anterior abdominal wall. Increased size of a small fluid collection adjacent to the distal portion of the infusion catheter, situated between the superior pancreatic head and the posterior inferior distal stomach (series 3 image 43). It now measures 3.4 x 2.0 x 2.5 cm, versus 3.3 x 1.4 x 2.2 cm previously.. Cholecystectomy. Spleen, pancreas, adrenals negative. Bilateral renal cysts. Status post anterior resection with right lower quadrant diverting ileostomy. Calcified granuloma at the left lung base calcified left inferior hilar lymph nodes. IMPRESSION: 1. Increase in size of presacral fluid collection. It should be amenable to CT- guided percutaneous drainage. 2. Increase in size of 3.4 cm fluid collection anterior to the pancreatic head, adjacent to the distal portion of the hepatic arterial infusion catheter. Leak from the catheter is a consideration. Consider further evaluation with a fluoroscopic guided contrast injection into the infusion catheter, which could be performed in vascular interventional radiology. This collection is not readily accessible to CT-guided aspiration but would be amenable to EUS guided aspiration. Plan Admit directly under Dr Quintanilla Transfer to [facility] IV fluids Analgesia Book for CT Guided drainage of collection tomorrow He's not systemically unwell at present, so perhaps it's best if we hold IV antibiotics until we get a sample of the drain fluid. If he becomes unwell overnight, broad spectrum IV antibiotics can be started. documented in this encounter Nursing Notes * Yocasta Jeter R.N. - 05/11/2024 12:42 PM CDT Shift Goals: Clinical Goals for the Shift: Pt will participate in drain teaching Identify possible barriers to meeting goals/advancing plan of care: NA End of Shift Summary: Pt demonstrated flushing, aspirating, draining the PARMINDER drain. * Yocasta Jeter R.N. - 05/11/2024 12:42 PM CDT AVS reviewed with pt and family and all questions addressed. Pt d/c HSC, WC escort paged. * Elizabeth Holt R.N. - 05/11/2024 4:18 AM CDT Problem: PAIN - ADULT Goal: PT VERBALIZES/DEMONSTRATES ADEQUATE COMFORT LEVEL OR BASELINE Outcome: Progressing Problem: KNOWLEDGE DEFICIT Goal: Patient/family/caregiver demonstrates understanding of disease process, treatment plan, medications, and discharge instructions Outcome: Progressing Problem: SKIN/TISSUE INTEGRITY Goal: Skin/Tissue integrity maintained or improved Outcome: Progressing Problem: SAFETY ADULT Goal: Maintain a safe environment Outcome: Progressing Shift Goals: Identify possible barriers to meeting goals/advancing plan of care: none End of Shift Summary: Pain controlled VSS PO intake adequate * Ginna Snyder, [facility], R.N. - 05/10/2024 4:16 AM CDT Problem: PAIN - ADULT Goal: PT VERBALIZES/DEMONSTRATES ADEQUATE COMFORT LEVEL OR BASELINE Outcome: Progressing Problem: KNOWLEDGE DEFICIT Goal: Patient/family/caregiver demonstrates understanding of disease process, treatment plan, medications, and discharge instructions Outcome: Progressing Problem: INFECTION - ADULT Goal: Absence of infection during hospitalization Outcome: Progressing Problem: DISCHARGE PLANNING Goal: Patient discharge needs identified Outcome: Progressing Problem: DISCHARGE PLANNING Goal: Patient discharge needs identified Outcome: Progressing Shift Goals: Clinical Goals for this Shift: Patient's pain will remain under control Identify possible barriers to meeting goals/advancing plan of care: Patient is alert and oriented x3. He rates his pain at 4-5/10 and given Oxycodone with slight relief. He is independent in the room. End of Shift Summary: Patient is NPO today for CT guided drainage of fluid collection. documented in this encounter ED Notes * Kai Petersen M.D., M.S. - 05/09/2024 4:29 PM CDT I have personally seen and examined this patient. I have fully participated in the care of this patient. I have reviewed all clinical information including history, physical exam, orders, and plan. Iagree with the note of the resident. Briefly, this patient is a 43 year old male status post exploratory laparotomy, multiple liver wedge resections, multiple liver ablation, cholecystectomy, low anterior resection with anastomosis, diverting loop ileostomy, hepatic artery infusion pump placement for grade 2 [id number] metastatic colorectal adenocarcinoma on 03/29/2024. He presents with increasing pain for the past week, along with recent night sweats and emesis this morning. No recent fevers. Having significant pain in what he describes as his pelvic floor. When I press on the coccyx, it is not painful, but rather the discomfort is deeper to that. We imaged his abdomen, and his CT showed: 1. Increase in size of presacral fluid collection. It should be amenable to CT- guided percutaneous drainage. 2. Increase in size of 3.4 cm fluid collection anterior to the pancreatic head, adjacent to the distal portion of the hepatic arterial infusion catheter. Leak from the catheter is a consideration. Consider further evaluation with a fluoroscopic guided contrast injection into the infusion catheter, which could be performed in vascular interventional radiology. This collection is not readily accessible to CT-guided aspiration but would be amenable to EUS guided aspiration. We will consult both Colorectal and Hepatobiliary Surgery, and he will be dispositioned per their recommendations. Please see attached documentation for further details. Update: Discussed with Colorectal Surgery, who will admit the patient and place a drain tomorrow. Final Diagnoses: as of 05/09/241816 Other Intra Abdominal And Pelvic Swelling Mass And Lump Kai Petersen M.D., M.S. 05/09/241816 Kai Petersen M.D., M.S. 05/15/24 1258 * Evelyn Dumont M.D. - 05/09/2024 4:25 PM CDT CHIEF COMPLAINT/REASON FOR VISIT Pelvic Pain HISTORY OF PRESENT ILLNESS Heriberto Snowden is a pleasant 43 y.o. male with a past medical history most notable for metastatic colorectal adenocarcinoma , who presented to the Emergency Department today for evaluation ofnight sweats, vomiting today, increasing pain around his coccyx since Thursday. Upon chart review, the most significant findings included Op note form 03/29/2024, the patient is status post exploratory laparotomy, multiple liver wedge resections, liver ablation, cholecystectomy, low anterior resection with the anastomosis, diverting loop ileostomy, hepatic artery infusion pump p lacement with Dr. Viera and Dr. Quintanilla. The patient was discharged in the hospital on 04/03/24. I reviewed the patient's progress note from 05/06/24 at the time it was reported that he was asymptomatic from the fluid collection that was seen on CT that day. PHYSICAL EXAMINATION Initial Vitals Temperature 05/09/24 1440 37.1 ??C Pulse Rate 05/09/24 1440 83 Heart Rate -- Resp Rate 05/09/24 1440 20 Blood Pressure 05/09/24 1440 126/82 SpO2 05/09/24 1440 99 % Pain Score 05/09/24 1441 4 On exam the patient is nontoxic in appearance, in no acute distress, resting comfortably in the hospital bed. Breath sounds are clear bilaterally, no wheezes, no rhonchi, no increased work of breathing, no acute respiratory distress. Patient has a normal heart rate with a regular rhythm. Abdomen issoft, nontender, nondistended, no rebound, no guarding. ASSESSMENT/PLAN Heriberto Snowden is a pleasant 43 y.o. male, who presented to the Emergency Department for evaluation of increasing coccyx pain since Thursday, night sweats, an episode of vomiting today. On initial exam, nontoxic in appearance, no acute distress, abdomen is soft, overall nontender. Triage vitals were reviewed and notable for afebrile, hemodynamically stable, breathing comfortably on room air. The patient's workup was started out in triage. I reviewed the patient's CT abdomen and pelvis fromtoday which did show an increased size of the presacral fluid collection. They do report that it would be amenable to CT-guided percutaneous drainage. There was also concern that there may be a leak from the catheter near his pancreatic head given that he has a new fluid collection anterior to pancreatic head and that further imaging could be done with contrast with vascular IR and that this could be amenable to EUS guided aspiration. I was most concerned for the infection in this presacral fluid collection in this patient. I have also considered a postoperative seroma I think this is much more likely given the patient's presentation today. Patient's lab workup is overall reassuring, his abdomen is soft on exam, he is in no acute distress, nontoxic in appearance. The patient does not appear septic, vitals are reassuring he is not tachycardic, not tachypneic, with no hypotension. Discussed the patient's case with colorectal surgery and with hepatobiliary surgery. The workup for Heriberto Snowden visit to the Emergency Department was significant for increasing size of presacral fluid collection with the admission to colorectal surgery. ED Medication Administration from 05/09/2024 1437 to 05/09/2024 2124 Date/Time Order Dose Route Action Action by 05/09/2024 1455 CDT oxyCODONE IR tablet 5 mg (Roxicodone) 5 mg oral Given Scheshengr B 05/09/2024 1455 CDT acetaminophen tablet 1,000 mg (TylenoL) 1,000 mg oral Given Gener B 05/09/2024 1531 CDT iohexoL 300 mg iodine/mL solution 1-200 mL (Omnipaque) [address] 05/09/2024 1531 CDT sodium chloride (PF) 0.9 % injection 1-100 mL 50 mL intravenous [facility] 05/09/2024 1652 CDT NaCl 0.9 % bolus 1,000 mL 1,000 mL intravenous New Bag Mervat Almeida 05/09/2024 1745 CDT NaCl 0.9 % bolus 1,000 mL 0 mL intravenous Stopped Mervat Almeida 05/09/2024 1812 CDT oxyCODONE IR tablet 5 mg (Roxicodone) 5 mg oral Given Madhav Steve 05/09/2024 1921 CDT ondansetron ODT disintegrating tablet 4 mg (Zofran-ODT) 4 mg oral Given Madhav Sanchez Please see ED course for results and additional medical decision-making. Emergency Department Course ED Course as of 05/09/24 2347 ThuMay 09, [address] Abdomen Pelvis with IV Contrast 1. Increase in size of presacral fluid collection. It should be amenable to CT- guided percutaneous drainage. 2. Increase in size of 3.4 cm fluid collection anterior to the pancreatic head, adjacent to the distal portion of the hepatic arterial infusion catheter. Leak from the catheter is a consideration. Consider further evaluation with a fluoroscopic guided contrast injection into the infusion catheter, which could be performed in vascular interventional radiology. This collection is not readily accessible to CT-guided aspiration but would be amenable to EUS guided aspiration. [address]51 I [address] base with Dr. Viera team, the resident reports that Dr. Viera has reviewed the patient's CT is not concerned regarding leak around pump. They explained that if there was any leak, then it would be consistent with an arterial bleed, given the patient's hemoglobin is stable this is reassuring and less likely. [address] Quintanilla's team. They are aware, however not the resident adult basic education instructor. They will be intouch with the resident adult basic education instructor. 1711 Ankur Silverio RN present as motorized squad commanding officer. The patient does have some blotchy redness around thesacrum and anus. No evidence of overlying cellulitis, induration, or palpable fluctuance. No evidence of cellulitis or with the scrotum or penis. 1851 I re-evaluated the patient he was well-appearing and on his phone at this time. He continues to be in no acute distress and appears well. Final Diagnoses: as of 05/09/24 2347 Other Intra Abdominal And Pelvic Swelling Mass And Lump Evelyn Dumont M.D. Resident 05/09/24 2347 * Harsh Sanchez IV, R.N. - 05/09/2024 2:42 PM CDT Pt presents to the ED with complaints of 5/10 coccyx pain. Pt stated he had imaging done on Thursday that reveled Postoperative changes in the abdomen and pelvis with small amount of new presacral fluid collection and multiple surgical and ablation defects in the liver. No suspicious residual hepaticlesions or lymphadenopathy seen. Pt has medically complex history of colorectal tumor with active chemo with being infused with a pump. In addition, patient has systemic chemo scheduled for tomorrow.Pt stated the Oxycodone is not providing relief. Harsh Sanchez IV, R.N. 05/09/24 6295 documented in this encounter Miscellaneous Notes * Hospital Course - Maria L Grayson APRN, C.N.P., D.N.P. - 05/10/2024 10:28 AM CDT PRIMARY DIAGNOSIS: Pelvic fluid collection PROCEDURE: 05/10 CT drain placement 05/10 CT abdomen and pelvis angiogram PATHOLOGY: n/a INCISION ASSESSMENT: n/a DRAINS: Interventional radiology placed a drain. Patient will return for sinogram. Drain flushing was initiated and patient was intstructed on drain cares. ADDITIONAL DIAGNOSES/COMPLICATIONS/CHRONIC CONDITIONS ADDRESSED DURING HOSPITALIZATION: #Pelvic Fluid Collection CT-guided aspiration with drain placement. Preliminary bacterial culture and g stain with Gram-negative bacillus. However with no leukocytosis and adequate source control at this time with drain, no need for patient to dismiss with antibiotics. Patient is to return in 10 days from dismissal for sinogram and a colorectal clinic visit to evaluate readiness for drain removal. # history of hepatic artery infusion pump Contacted Patsy Bowser, regarding refill for pump. Patient is scheduled for hepatic artery infusion pump refill/instillation on 05/11 at 2:[address] Viera recommended obtaining a CT abdomen and pelvis to look at the vasculature around hepatic artery. CT of the abdomen and pelvis from 05/10/24 revealed wide patency of the common hepatic artery. The celiac axis, superior mesenteric artery, accessory and main right renal arteries an accessory and main left renal arteries are also widely patent. 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 To iliac arterial vasculature and bilateral common femoral arteries are also widely patent. No new recommendations from hepatobiliary surgical team at this point Follow-up -sinogram with colorectal clinic visit with Dr Quintanilla in 10 days- requested and pending documented in this encounter Plan of Treatment Upcoming Encounters Date Type Department Care Team (Late st Contact Info) Description 06/01/2024 9:30 AM CDT Clinical Support Division of Colon and Rectal Surgery in [place], [place] [address] [place] [phone] Armida Bullock APRN, C.N.P., M.S.N. [address] [place] [address] 06/07/2024 9:20 AM CDT Lab Department of Infusion Therapy in [place], [place] [address] [place] [phone] Mariluz Soler M.D. [address] [place] [phone] 06/07/2024 11:20 AM CDT Office Visit Department of Oncology in [place], [place] [address] [place] [phone] Mariluz Soler M.D. [address] [place] [phone] 06/07/2024 1:00 PM CDT Infusion Department of Oncology in [place], [place] [address] [place] [phone] Mariluz Soler M.D. [address] [place] [phone] 06/17/2024 8:30 AM CDT Appointment Department of Laboratory Medicine and Pathology, [facility] in [place], [place] [address] [place] [phone] Anny Mcneill M.D. [address] [place] [phone] 06/17/2024 9:00 AM CDT Lab Department of Infusion Therapy in [place], [place] [address] [place] [phone] Anny Mcneill M.D. [address] [place] [phone] 06/17/2024 10:45 AM CDT Procedure visit Department of Urology in [place], [place] [address] [place] [phone] Anny Mcneill M.D. [address] [place] [phone] 06/17/2024 1:45 PM CDT Comprehensive Visit Department of Urology in [place], [place] [address] [place] [address] Ayesha Romero P.A.-C. [address] [place] [phone] 06/17/2024 4:15 PM CDT Comprehensive Visit Department of Urology in [place], [place] [address] [place] [phone] Scotty Tom APRN, C.N.P. [address] [place] [phone] Pending Results Name Type Priority Associated Diagnoses Date /Time Fungal Culture, Routine Microbiology Timed Other Intra Abdominal And Pelvic Swelling Mass And Lump 05/10/2024 12:22 PM CDT Scheduled Orders Name Type Priority Associated Diagnoses Order Schedule Bacterial Culture, Aerobic + Susceptibility Microbiology Timed For man ual release during upcoming procedure for 1 Occurrences starting 05/09/2024 until 05/09/2024 Gram Stain Microbiology Timed For manual r elease during upcoming procedure for 1 Occurrences starting 05/09/2024 until 05/09/2024 Bacterial Culture, Anaerobic + Susceptibility Microbiology Timed For manual relea se during upcoming procedure for 1 Occurrences starting 05/09/2024 until 05/09/2024 Fungal Culture, Routine Microbiology Timed For manual release during upcoming procedure for 1 Occurrences starting 05/09/2024 until 05/09/2024 Scheduled Referrals Name Type Priority Associated Diagnoses Orde r Schedule Colon and Rectal Surgery office visit (clinic) Outpatient Referral Routine Expected: 05/21/2024, Expires: 08/10/2025 documented as of this encounter Goals Goal Patient Goal Type Associated Problems Recent Progress Patient-Stated? Author Eat a balanced, healthy diet Diet Worsening( 11:49 AM CDT) Yes Burden, Nadia Boone R.N. Note: 02/14/20 - Has [...] General On track( 11:47 AM CDT) Yes Nadia Nickerson R.N. Note: 01/24/20 - More structure to his day. 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 Recognizing he needs more personal time. Meet with therapist regularly General On track( 11:43 AM CDT) Yes Krishan, Nadia Boone, R.N. Note: Dr. Pavan Sorensen, with [facility] in [place], [place]. Take your medication every day Lifestyle [...] Procedure Name Priority Date/Time Associated Diagnosis Comments CT ABDOMEN PELVIS WITH IV CONTRAST RAD - Routine (most inpatients and all outpatients) 05/10/2024 1:[address] ABDOMEN AND/OR PELVIS DRAIN PLACEMENT RAD - Routine (most inpatients and all outpatients) 05/10/2024 12:56 PM CDT BACTERIAL CULTURE, AEROBIC + SUSC Timed 05/10/2024 12:22 PM CDT Other Intra Abdominal And Pelvic Swelling Mass And Lump FUNGAL SMEAR Timed 05/10/2024 12:22 PM CDT Other Intra Abdominal And Pelvic Swelling Mass And Lump GRAM STAIN Timed 05/10/2024 12:22 PM CDT Other Intra Abdominal And Pelvic Swelling Mass And Lump FUNGAL CULTURE, ROUTINE Timed 05/10/2024 12:22 PM CDT Other Intra Abdominal And Pelvic Swelling Mass And Lump CBC WITH DIFFERENTIAL, B Routine 05/09/2024 11:57 PM CDT BASIC METABOLIC PANEL, S/P Routine 05/09/2024 11:[address] ABDOMEN PELVIS WITH IV CONTRAST RAD - Semiurgent (Fast; most ED patients; some inpatients) 05/09/2024 3:47 PM CDT HEPATIC FUNCTION PANEL, S STAT 05/09/2024 2:53 PM CDT PROTHROMBIN TIME (PT), P STAT 05/09/2024 2:53 PM CDT CBC WITH DIFFERENTIAL, B STAT 05/09/2024 2:53 PM CDT C-REACTIVE PROTEIN (CRP), S/P STAT 05/09/2024 2:53 PM CDT LACTATE, B/P STAT 05/09/2024 2:53 PM CDT BASIC METABOLIC PANEL, S/P STAT 05/09/2024 2:53 PM CDT LIPASE, S/P STAT 05/09/2024 2:52 PM CDT documented in this encounter Results * CT Abdomen Pelvis with IV Contrast (05/10/2024 1:49 PM CDT) Anatomical Region Laterality Modality Abdomen, Pelvis, Abdominal R ST LOS, Abdominal ARZ LOS, Abdominal FLA LOS N/A Computed Tomograp hy, Computed Tomography 05/10/2024 1:05 PM CDT Impressions 05/10/2024 2:58 PM CDT 1. Similar appearance of the fluid collection between the superior pancreatic head and posteroinferior distal stomach. The hepatic artery infusion pump tip is positioned in close contiguity with the common hepatic artery. No findings to suggest a bleeding vessel. A catheter leak is difficult to exclude. If clinical concern persists, evaluation with fluoroscopic-guided contrast injection into the infusion catheter with IR could be considered. 2. Decreased size of the presacral fluid collection after pigtail catheter drain placement. Narrative 05/10/2024 2:58 PM CDT EXAM: ??CT ABDOMEN PELVIS WITH IV CONTRAST COMPARISON: ??CT abdomen of 05/09/2024. FINDINGS: ?? Postoperative changes of low anterior resection with right lower quadrant diverting loop ileostomy. Hepatic artery infusion pump with the infusion pump in the left anterior abdominal wall and terminating adjacent to or within the common hepatic artery. The fluid collection between the superior pancreatic head and posteroinferior distal stomach now measures up to 3.0 x 1.6 cm, decreased from 3.4 x 1.9 cm on prior exam. This finding suggests the fluid collection may not be significantly changed dating back to 05/06/2024 but instead reconfigured secondary to mass effect from the stomach. A slow leak from the catheter is difficult to exclude. No findings to suggest active bleed. Wide patency of the common hepatic artery. The celiac axis, superior mesenteric artery, accessory and main right renal arteries, and accessory and main left renal arteries are widely patent. 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 The iliac arterial vasculature and bilateral common femoral arteries are widely patent. A pigtail drain is now placed within the presacral fluid collection, which has decreased in size since the prior exam and is now concave anteriorly. Tracking air is noted within the left gluteal musculature and along the catheter course consistent with recent placement. Cholecystectomy. Unremarkable appearance of the adrenal glands, spleen, and pancreas. Bilateral renal cysts. Calcified granuloma at the left lung base with calcified left hilar and mediastinal lymph nodes. Normal caliber small and large bowel. Unremarkable appendix. Multiple hepatic lobe ablations and wedge resections. Procedure Note Dylan Lake M.D. - 05/10/2024 EXAM: CT ABDOMEN PELVIS WITH IV CONTRAST COMPARISON: CT abdomen of 05/09/2024. FINDINGS: Postoperative changes of low anterior resection with right lower quadrantdiverting loop ileostomy. Hepatic artery infusion pump with the infusion pump in the left anteriorabdominal wall and terminating adjacent to or within the common hepaticartery. The fluid collection between the superior pancreatic head andposteroinferior distal stomach now measures up to 3.0 x 1.6 cm, decreased from 3.4 x 1.9 cm on prior exam.This finding suggests the fluid collection may not be significantlychanged dating back to 05/06/2024 but instead reconfigured secondary tomass effect from the stomach. A slow leak from the catheter is difficult to exclude. No findings to suggest activebleed. Wide patency of the common hepatic artery. The celiac axis,superior mesenteric artery, accessory and main right renal arteries, andaccessory and main left renal arteries are widely patent. The inferior mesenteric artery is occluded at theorigin. The iliac arterial vasculature and bilateral common femoralarteries are widely patent. A pigtail drain is now placed within the presacral fluid collection, whichhas decreased in size since the prior exam and is now concave anteriorly.Tracking air is noted within the left gluteal musculature and along thecatheter course consistent with recent placement. Cholecystectomy. Unremarkable appearance of the adrenal glands, spleen,and pancreas. Bilateral renal cysts. Calcified granuloma at the left lungbase with calcified left hilar and mediastinal lymph nodes. Normal calibersmall and large bowel. Unremarkable appendix. Multiple hepatic lobe ablations and wedge resections. IMPRESSION: 1. Similar appearance of the fluid collection between the superiorpancreatic head and posteroinferior distal stomach. The hepatic arteryinfusion pump tip is positioned in close contiguity with the commonhepatic artery. No findings to suggest a bleeding vessel. A catheter leak is difficult to exclude. If clinicalconcern persists, evaluation with fluoroscopic-guided contrast injectioninto the infusion catheter with IR could be considered. 2. Decreased size of the presacral fluid collection after pigtail catheterdrain placement. Xi Hahn APRN, C.N.P., M.S.N. I MG CT PROCEDURES * CT Abdomen and/or Pelvis Drain Placement (05/10/2024 12:56 PM CDT) Anatomical Region Laterality Modality Abdominal RST LOS, Procedura l, Vascular Interventional ARZ LOS, Procedure FLA LOS, Procedural NWWI LOS N/A Computed Tomography, Compute d Tomography Impressions 05/10/2024 2:02 PM CDT 1. Placement of a 10 [place] locking loop catheter into the presacral fluid [...] technique was utilized to place a 10 [place] locking loop catheter into the fluid collection. Locking loop of the catheter was formed. ??40 cc of light brown turbid fluid was aspirated. Locking loop catheter was sutured to the skin with 2-0 Prolene. TARGET LOCATION: Presacral fluid collection. INTRODUCER NEEDLE: 17-gauge introducer needle. DRAIN TYPE/SIZE: 10 [place] locking loop catheter VOLUME OF FLUID ASPIRATED: [...] lidocaine for local anesthesia and CT Guidance. V19-rryfe introducer needle was advanced into the presacral fluidcollection. Seldinger technique was utilized to place a 10 [place] lockingloop catheter into the fluid collection. Locking loop of the catheter was formed. 40 cc of light brown turbidfluid was aspirated. Locking loop catheter was sutured to the skin with2-0 Prolene. TARGET LOCATION: Presacral fluid collection. INTRODUCER NEEDLE: 17-gauge introducer needle. DRAIN TYPE/SIZE: 10 [place] locking loop catheter VOLUME OF FLUID ASPIRATED: 40 cc APPEARANCE OF ASPIRATE: Light brown turbid fluid COMPLICATION: None BLOOD LOSS: None. PATIENT INSTRUCTIONS: Patient may be dismissed from the radiologydepartment when dismissal criteria met. POST-PROCEDURE DIAGNOSIS: Presacral fluid collection. IMPRESSION: 1. Placement of a 10 [place] locking loop catheter into the presacral fluidcollection. 2. Recommend flushing and aspirating the catheter with 10 ml of salinetwice daily. 3. Consider sinogram in interventional radiology in a few days forcatheter evaluation. EP Xi Hahn APRN, C.N.P., M.S.N. I MG CT PROCEDURES * Fungal Smear (05/10/2024 12:22 PM CDT) Pathologist [facility] Fungal Smear Negative. 05/10/2024 11:14 PM CDT DTL Fluid (Pelvis) 05/10/2024 12 :22 PM CDT Narrative [facility] - 05/10/2024 11:14 PM CDT Bacterial Culture: Received Bactec aerobic and Bactec anaerobic bottles Tasia Whitehead APRN.N.P., M.S.N. L MICROBIOLOGY - GENERAL ORDERABLES [facility] [address] [place] [address], [facility] [address] [place] [address] * (ABNORMAL) Gram Stain (05/10/2024 12:22 PM CDT) Gram Stain White blood cells, Many.(A) 05/10/2024 3:19 PM CDT DTL Gram Stain GRAM NEGATIVE BACILLUS Many. (A) 05/10/2024 3:19 PM CDT DTL Comment: Semi-Urgent Result. Additional Report Semi-Urgent This is a semi-urgent result(ROMERO) [facility] Fluid (Pelvis) 05/10/2024 12 :22 PM CDT Narrative [facility] - 05/10/2024 3:19 PM CDT Bacterial Culture: Received Bactec aerobic and Bactec anaerobic bottles Xi Hahn APRN, C.N.P., M.S.N. L MICROBIOLOGY - GENERAL ORDERABLES Performing Organization Address City/[facility]/ZIP Co de Phone Number [facility] [address] [place] [address], [facility] [address] [place] [address] * (ABNORMAL) Bacterial Culture, Aerobic + Susceptibility (05/10/2024 12:22 PM CDT) Bacterial Culture, Aerobic + Susc BACTEROIDES THETAIOTAOMICRO N/FAECIS Growth after 1 day (A) 05/17/2024 2:04 PM CDT DTL Fluid (Pelvis) 05/10/2024 12 :22 PM CDT R [facility] - 05/17/2024 2:04 PM CDT Bacterial Culture: [...] MICROBIOLOGY - GENERAL ORDERABLES Performing Organization Address City/[facility]/ZIP Co de Phone Number [facility] [address] [place], [place] [id number] [place] [address] [address] [place] [address] * Basic Metabolic Panel (05/09/2024 11:57 PM CDT) Potassium, S 4.5 3.6 - 5.2 mmol/L 05/10/2024 1:22 AM CDT DTL Sodium, S 141 135 - 145 mmol/L 05/10/2024 1:22 AM CDT DTL Chloride, S 102 98 - 107 mmol/L 05/10/2024 1:22 AM CDT DTL Bicarbonate, S 29 22 - 29 mmol/L 05/10/2024 1:22 AM CDT DTL Anion Gap 10 7 - 15 05/10/2024 1:22 AM CDT DTL BUN (Blood Urea Nitrogen), S 10 8 - 24 mg/dL 05/10/2024 1:22 AM CDT DTL Creatinine 0.93 0.74 - 1.35 mg/dL 05/10/2024 1:22 AM CDT DTL Estimated GFR (eGFR) >90 >=60 mL/min/BSA 05/10/2024 1:22 AM CDT DTL Comment: Estimated GFR calculated using the 2020 CKD_EPI creatinine equation. Calcium, Total, S 9.1 8.6 - 10.0 mg/dL 05/10/2024 1:22 AM CDT DTL Glucose, S 96 70 - 140 mg/dL 05/10/2024 1:22 AM CDT DTL Blood (Blood, Venous) 05/09/2024 11:57 PM CDT 05/10/2024 1:05 AM CDT Oskar Lee, B.Ch., B.A.O., Ph.D . LAB BLOOD ADD-ON [facility] [address] [place] [address], [facility] [address] [place] [address] * (ABNORMAL) CBC with Differential, Blood (05/09/2024 11:57 PM CDT) Hemoglobin 12.6(L) 13.2 - 16.6 g/dL 05/10/2024 1:00 AM CDT DTL Hematocrit 39.0 38.3 - 48.6 % 05/10/2024 1:00 AM CDT DTL Erythrocytes 4.40 4.35 - 5.65 x10(12)/L 05/10/2024 1:00 AM CDT DTL MCV 88.6 78.2 - 97.9 fL 05/10/2024 1:00 AM CDT DTL RBC Distrib Width 13.0 11.8 - 14.5 % 05/10/2024 1:00 AM CDT DTL Platelet Count 219 135 - 317 x10(9)/L 05/10/2024 1:00 AM CDT DTL Leukocytes 6.5 3.4 - 9.6 x10(9)/L 05/10/2024 1:00 AM CDT DTL Neutrophils 4.50 1.56 - 6.45 x10(9)/L 05/10/2024 1:00 AM CDT DHPM Lymphocytes 1.06 0.95 - 3.07 x10(9)/L 05/10/2024 1:00 AM CDT DTL Monocytes 0.78 0.26 - 0.81 x10(9)/L 05/10/2024 1:00 AM CDT DTL Eosinophils 0.11 0.03 - 0.48 x10(9)/L 05/10/2024 1:00 AM CDT DTL Basophils 0.04 0.01 - 0.08 x10(9)/L 05/10/2024 1:00 AM CDT DTL Blood (Blood, Venous) 05/09/2024 11:57 PM CDT 05/10/2024 12:55 AM CDT Oskar Lee, B.Ch., B.A.O., Ph.D . LAB BLOOD ADD-ON [facility] [address] [place] [address], [facility] DTL [facility] [address] [place] [address] DHPM [facility] [address] [place] [address] * CT Abdomen Pelvis with IV Contrast (05/09/2024 3:47 PM CDT) Anatomical Region Laterality Modality Abdomen, Pelvis, Abdominal R ST LOS, Abdominal ARZ LOS, Abdominal FLA LOS N/A Computed Tomograp hy, Computed Tomography 05/09/2024 3:32 PM CDT Impressions 05/09/2024 4:06 PM CDT 1. Increase in size of presacral fluid collection. It should be amenable to CT- guided percutaneous drainage. 2. Increase in size of 3.4 cm fluid collection anterior to the pancreatic head, adjacent to the distal portion of the hepatic arterial infusion catheter. Leak from the catheter is a consideration. Consider further evaluation with a fluoroscopic guided contrast injection into the infusion catheter, which could be performed in vascular interventional radiology. ??This collection is not readily accessible to CT- guided aspiration but would be amenable to EUS guided aspiration. Narrative 05/09/2024 4:06 PM CDT EXAM: ??CT ABDOMEN PELVIS WITH IV CONTRAST COMPARISON: ??May 06, 2024 FINDINGS: ??Increase in size of presacral fluid collection, now measuring 5.3 x 3.9 x 7.3 cm, versus 4.9 x 2.7 x 8.4 cm. It is now convex anteriorly where as previously it was concave. Multiple hepatic ablation and wedge resection defects appear unchanged. Decrease in tiny gas pockets in the large ablation defect at the hepatic dome. No new hepatic lesions. Hepatic artery infusion pump with infusion chamber in the left anterior abdominal wall. Increased size of a small fluid collection adjacent to the distal portion of the infusion catheter, situated between the superior pancreatic head and the posterior inferior distal stomach (series 3 image 43). It now measures 3.4 x 2.0 x 2.5 cm, versus 3.3 x 1.4 x 2.2 cm previously.. Cholecystectomy. Spleen, pancreas, adrenals negative. Bilateral renal cysts. Status post anterior resection with right lower quadrant diverting ileostomy. Calcified granuloma at the left lung base calcified left inferior hilar lymph nodes. Procedure Note Kai Jenkins M.B., Ch.B. - 05/09/2024 EXAM: CT ABDOMEN PELVIS WITH IV CONTRAST COMPARISON: May 06, 2024 FINDINGS: Increase in size of presacral fluid collection, now measuring5.3 x 3.9 x 7.3 cm, versus 4.9 x 2.7 x 8.4 cm. It is now convex anteriorlywhere as previously it was concave. Multiple hepatic ablation and wedge resection defects appear unchanged.Decrease in tiny gas pockets in the large ablation defect at the hepaticdome. No new hepatic lesions. Hepatic artery infusion pump with infusionchamber in the left anterior abdominal wall. Increased size of a small fluid collection adjacent to thedistal portion of the infusion catheter, situated between the superiorpancreatic head and the posterior inferior distal stomach (series 3 image43). It now measures 3.4 x 2.0 x 2.5 cm, versus 3.3 x 1.4 x 2.2 cm previously.. Cholecystectomy. Spleen, pancreas, adrenals negative. Bilateral renalcysts. Status post anterior resection with right lower quadrant divertingileostomy. Calcified granuloma at the left lung base calcified left inferior hilarlymph nodes. IMPRESSION: 1. Increase in size of presacral fluid collection. It should be amenableto CT- guided percutaneous drainage. 2. Increase in size of 3.4 cm fluid collection anterior to the pancreatichead, adjacent to the distal portion of the hepatic arterial infusioncatheter. Leak from the catheter is a consideration. Consider furtherevaluation with a fluoroscopic guided contrast injection into the infusion catheter, which could be performed invascular interventional radiology. This collection is not readilyaccessible to CT-guided aspiration but would be amenable to EUS guidedaspiration. Negar Stone P.A.-C., M.S. IMG CT CA OCEDURES * Lactate (05/09/2024 2:53 PM CDT) Lactate, P 1.0 0.5 - 2.2 mmol/L 05/09/2024 3:39 PM CDT DTL Blood (Blood, Venous) 05/09/2024 2:53 PM CDT 05/09/2024 3:03 PM CDT Negar Stone P.A.-C., M.S. LAB BLOOD NON ADD-ON [facility] [address] [place] [address], [facility] [address] [place] [address] * (ABNORMAL) Hepatic Function Panel (05/09/2024 2:53 PM CDT) Bilirubin, Total, S 0.4 0.0 - 1.2 mg/dL 05/09/2024 3:41 PM CDT DTL Bilirubin, Direct, S <0.2 0.0 - 0.3 mg/dL 05/09/2024 3:41 PM CDT DTL Aspartate Aminotransferase (AST), S 34 8 - 48 U/L 05/09/2024 3:41 PM CDT DTL Alanine Aminotransferase (ALT), S 69(H) 7 - 55 U/L 05/09/2024 3:41 PM CDT DTL Alkaline Phosphatase, S 167(H) 40 - 129 U/L 05/09/2024 3:41 PM CDT DTL Albumin, S 4.1 3.5 - 5.0 g/dL 05/09/2024 3:41 PM CDT DTL Protein, Total, S 6.4 6.3 - 7.9 g/dL 05/09/2024 3:41 PM CDT DTL Blood (Blood, Venous) 05/09/2024 2:53 PM CDT 05/09/2024 3:17 PM CDT Negar Stone P.A.-C., M.S. LAB BLOOD ADD-ON [facility] [address] [place] [address], [facility] [address] [place] [address] * Prothrombin Time (PT) (05/09/2024 2:53 PM CDT) Pathologist [facility] Prothrombin Time, P [...] M.S. LAB BLOOD ADD-ON Performing Organization Address City/[facility]/ZIP Co de Phone Number [facility] [address] [place] [address], [facility] STMA [facility] [address] [place] [address] * (ABNORMAL) CRP (C-Reactive Protein) (05/09/2024 2:53 PM CDT) [facility] C-Reactive Protein (CRP), S 45.4(H) <5.0 mg/L 05/09/2024 3:41 PM CDT DTL Blood (Blood, Venous) 05/09/2024 2:53 PM CDT 05/09/2024 3:17 PM CDT Negar Stone P.A.-C., M.S. LAB BLOOD ADD-ON Performing Organization Address City/[facility] Co de Phone Number [facility] [address] [place] [address], [facility] [address] [place] [address] * Basic Metabolic Panel (05/09/2024 2:53 PM CDT) [facility] Potassium, P 4.1 3.6 - 5.2 mmol/L 05/09/2024 3:39 PM CDT DTL Sodium, P 136 135 - 145 mmol/L 05/09/2024 3:39 PM CDT DTL Chloride, P 100 98 - 107 mmol/L 05/09/2024 3:39 PM CDT DTL Bicarbonate, P 27 22 - 29 mmol/L 05/09/2024 3:39 PM CDT DTL Anion Gap, P 9 7 - 15 05/09/2024 3:39 PM CDT DTL BUN (Blood Urea Nitrogen), P 15 8 - 24 mg/dL 05/09/2024 3:39 PM CDT DTL Creatinine 0.75 0.74 - 1.35 mg/dL 05/09/2024 3:39 PM CDT DTL Estimated GFR (eGFR) >90 >=60 mL/min/BSA 05/09/2024 3:39 PM CDT DTL Comment: Estimated GFR calculated using the 2020 CKD_EPI creatinine equation. Calcium, Total, P 9.4 8.6 - 10.0 mg/dL 05/09/2024 3:39 PM CDT DTL Glucose, P 93 70 - 140 mg/dL 05/09/2024 3:39 PM CDT DTL Blood (Blood, Venous) 05/09/2024 2:53 PM CDT 05/09/2024 3:03 PM CDT Negar Stone P.A.-C., M.S. LAB BLOOD ADD-ON [facility] [address] [place] [address], [facility] [address] [place] [address] * CBC with Differential, Blood (05/09/2024 2:53 PM CDT) Hemoglobin 13.9 13.2 - 16.6 g/dL 05/09/2024 2:59 PM CDT STMA Hematocrit 42.5 38.3 - 48.6 % 05/09/2024 2:59 PM CDT STMA Erythrocytes 4.75 4.35 - 5.65 x10(12)/L 05/09/2024 2:59 PM CDT STMA MCV 89.5 78.2 - 97.9 fL 05/09/2024 2:59 PM CDT STMA RBC Distrib Width 13.1 11.8 - 14.5 % 05/09/2024 2:59 PM CDT STMA Platelet Count 253 135 - 317 x10(9)/L 05/09/2024 2:59 PM CDT STMA Leukocytes 6.7 3.4 - 9.6 x10(9)/L 05/09/2024 2:59 PM CDT STMA Neutrophils 4.96 1.56 - 6.45 x10(9)/L 05/09/2024 2:59 PM CDT DHPM Lymphocytes 0.97 0.95 - 3.07 x10(9)/L 05/09/2024 2:59 PM CDT STMA Monocytes 0.58 0.26 - 0.81 x10(9)/L 05/09/2024 2:59 PM CDT STMA Eosinophils 0.11 0.03 - 0.48 x10(9)/L 05/09/2024 2:59 PM CDT STMA Basophils 0.04 0.01 - 0.08 x10(9)/L 05/09/2024 2:59 PM CDT STMA Blood (Blood, Venous) 05/09/2024 2:53 PM CDT 05/09/2024 2:57 PM CDT Negar Stone P.A.-C., M.S. LAB BLOOD ADD-ON [facility] [address] [place] [address], [facility] STMA [facility] [address] [place] [address] DHPM [facility] [address] [place] [address] * Lipase (05/09/2024 2:52 PM CDT) Lipase, S 31 13 - 60 U/L 05/09/2024 5: 32 PM CDT DTL Blood (Blood, Venous) 05/09/2024 2:52 PM CDT 05/09/2024 5:12 PM CDT Evelyn Dumont M.D. LAB BLOOD ADD-ON [facility] [address] [place] [address], [facility] DTL [facility] [address] [place] [address] documented in this encounter Visit Diagnoses Diagnosis Other Intra Abdominal And Pelvic Swelling Mass And Lump- Primary Other Intra Abdominal And Pelvic Swelling Mass And Lump Secondary Malignant Neoplasm Liver (HCC) Obesity Body Mass Index 30-39.9 Adult Malignant Neoplasm Of Rectum (HCC) Ileostomy Status (HCC) Depression Major Recurrent Severe Without Psychotic Features (HCC) documented in this encounter Admitting Diagnoses Diagnosis Other Intra Abdominal And Pelvic Swelling Mass And Lump documented in this encounter Administered Medications Inactive Administered Medications - up to 3 most recent administrations Medication Order MAR Action Action Date Dose Rate Site acetaminophen tablet 1,000 mg (TylenoL) 1,000 mg, oral, Once, On Thu05/09/24 at 1449, For 1 dose Given 05/09/2024 2:55 PM CDT 1,000 mg acetaminophen tablet 1,000 mg (TylenoL) 1,000 mg, oral, Every 6 hours, First dose on Thu05/09/24 at 2145 Given 05/11/2024 10:39 AM CDT 1,000 mg Given 05/11/2024 2:47 AM CDT 1,000 mg Given 05/10/2024 9:18 PM CDT 1,000 mg amLODIPine tablet 5 mg (Norvasc) 5 mg, oral, Daily, First dose on Thu05/10/24 at 0900 Given 05/11/2024 10:40 AM CDT 5 mg Given 05/10/2024 8:00 AM CDT 5 mg buPROPion XL 24 hr tablet 300 mg (Wellbutrin XL) 300 mg, oral, Every morning, First dose on Thu05/10/24 at 0900, Swallow whole. Do NOT crush, chew, or split tablet. Given 05/11/2024 10:39 AM CDT 300 mg Given 05/10/2024 8:00 AM CDT 300 mg fentaNYL injection 25 mcg (Sublimaze) 25 mcg, intravenous, Every 2 min PRN, sedation, Administer over 1 minute immediately prior to the procedure. May repeat every 2 minutes to a maximum of 200 mcg, until pain score of 3 or less, or until the patient meets the pain comfort goal, or RASS 0 to -2. Do not give if respiratory rate is less than 8 breaths/minute., Starting on Thu05/10/24 at 1221, For 3 hours, Intraprocedure (RAD), Subsequent doses Given 05/10/2024 12:41 PM CDT 25 mcg Given 05/10/2024 12:37 PM CDT 25 mcg Given 05/10/2024 12:34 PM CDT 25 mcg heparin (porcine) injection 5,000 Units 5,000 Units, subcutaneous, Every 8 hours scheduled, First dose on Thu05/09/24 at 2200 Given 05/10/2024 6:29 AM CDT 5,000 Units Right Upper Arm (Back) Given 05/09/2024 10:02 PM CDT 5,000 Units Left Upper Arm (Back) heparin (porcine) injection 5,000 Units 5,000 Units, subcutaneous, Every 8 hours scheduled, First dose on Thu05/10/24 at 2200 Given 05/11/2024 6:22 AM CDT 5,000 Units Right Upper Arm (Back) heparin flush 500-1,000 Units 500-1,000 Units, intra-catheter, During hospitalization, line care, Prior to discharge, Starting on Thu05/11/24 at 0209, For 1 dose, Implanted Vascular Access Device (IVAD) Venous Non-Valved: flush 5 mL (500 units) per port/lumen following saline flush prior to discharge. HYDROmorphone (PF) injection 0.4 mg (Dilaudid) 0.4 mg, intravenous, Every 3 hours PRN, break through pain, Starting on Thu05/10/24 at 1236, For 4 doses ibuprofen tablet 400 mg 400 mg, oral, Every 6 hours PRN, moderate pain or score 4-6 of 10, Starting on Thu05/09/24 at 2131, Take with food or milk if GI disturbances occur with use. iohexoL 300 mg iodine/mL solution 1-200 mL (Omnipaque) 1-200 mL, intravenous, Once in imaging, contrast, Starting on Thu05/09/24 at 1523, For 1 dose, Imaging Protocol Orders, Dose per Radiant Medication Guidelines Given 05/09/2024 3:31 PM CDT 140 mL iohexoL 300 mg iodine/mL solution 1-200 mL (Omnipaque) 1-200 mL, intravenous, Once in imaging, contrast, Starting on Thu05/10/24 at 1137, For 1 dose, Imaging Protocol Orders, Dose per Radiant Medication Guidelines Given 05/10/2024 1:06 PM CDT 140 mL ketorolac injection 15 mg (ToradoL) 15 mg, intravenous, Once, On Thu05/10/24 at 1500, For 1 dose, Adult IV push rate: Over 15 seconds. Peds IV push rate: Over 1 minute. Doses > 15 mg IV/IM are discouraged due to lack of additional analgesic benefit. Given 05/10/2024 2:54 PM CDT 15 mg Lactated Ringer's 75 mL/hr, intravenous, Continuous, Starting on Thu05/10/24 at 0800 Rate/Dose Verify 05/10/2024 8:00 PM CDT 75 mL/hr 75 mL/hr Rate/Dose Verify 05/10/2024 4:00 PM CDT 75 mL/hr 75 mL/h r Restarted 05/10/2024 2:58 PM CDT 75 mL/hr 75 mL/hr Lactated Ringer's 20 mL/hr, intravenous, Once as needed, to keep vein open, Starting on Thu05/10/24 at 1221, For 1 dose, Intraprocedure (RAD) New Bag 05/10/2024 12:29 PM CDT 20 mL/h r 20 mL/hr lamoTRIgine tablet 200 mg (LaMICtaL) 200 mg, oral, Daily, First dose on Thu05/10/24 at 0900 Given 05/11/2024 10:40 AM CDT 200 mg Given 05/10/2024 8:00 AM CDT 200 mg lidocaine 10 mg/mL (1 %) injection (Xylocaine) As needed, Starting on Thu05/10/24 at 1235, Intra-Op Given 05/10/2024 12:35 PM CDT 10 mL Lower Back lidocaine 5 % 1 patch (Lidoderm) 1 patch, transdermal, Administer over 12 Hours, Daily, First dose on Thu05/11/24 at 0900, Place around drain area. Remove after 12 hours. LORazepam tablet 0.5 mg (Ativan) 0.5 mg, oral, 3 times daily PRN, anxiety, Starting on Thu05/09/24 at 2209 Given 05/10/2024 9:18 PM CDT 0.5 mg Given 05/10/2024 2:39 PM CDT 0.5 mg Given 05/10/2024 8:03 AM CDT 0.5 mg methocarbamoL tablet 500 mg (Robaxin) 500 mg, oral, 3 times daily PRN, muscle spasms, Starting on Thu05/10/24 at 1434 Given 05/11/2024 4:52 AM CDT 500 mg Given 05/10/2024 7:03 PM CDT 500 mg midazolam (PF) injection 0.5 mg (Versed) 0.5 mg, intravenous, Every 2 min PRN, sedation, RASS -1, Starting on Thu05/10/24 at 1221, For 3 hours, Intraprocedure (RAD), May repeat every 2 minutes for a maximum of 5 mg. Do not give if respiratory rate is less than 8 breaths/minute. Given 05/10/2024 12:41 PM CDT 0.5 mg Given 05/10/2024 12:36 PM CDT 0.5 mg Given 05/10/2024 12:34 PM CDT 0.5 mg midazolam (PF) injection 1 mg (Versed) 1 mg, intravenous, Every 2 min PRN, sedation, RASS 0, Starting on Thu05/10/24 at 1221, For 3 hours, Intraprocedure (RAD), May repeat every 2 minutes for a maximum of 5 mg. Do not give if respiratory rate is less than 8 breaths/minute. Given 05/10/2024 12:24 PM CDT 1 mg mirtazapine tablet 30 mg (Remeron) 30 mg, oral, Daily at bedtime, First dose on Thu05/10/24 at 2100 Given 05/10/2024 9:18 PM CDT 30 mg NaCl 0.9 % bolus 1,000 mL 1,000 mL, intravenous, at 1,000 mL/hr, Administer over 1 Hours, Once, On Thu05/09/24 at 1635, For 1 dose New Bag 05/09/2024 4:52 PM CDT 1,000 mL 1000 mL/hr ondansetron (PF) injection 4 mg (Zofran) 4 mg, intravenous, Every 8 hours PRN, nausea, vomiting, Starting on Thu05/09/24 at 2131 Given 05/10/2024 6:53 AM CDT 4 mg Given 05/09/2024 10:01 PM CDT 4 mg ondansetron (PF) injection 4 mg (Zofran) 4 mg, intravenous, Once as needed, nausea, vomiting, Starting on Thu05/10/24 at 1221, For 1 dose, Intraprocedure (RAD) Given 05/10/2024 12:21 PM CDT 4 mg ondansetron ODT disintegrating tablet 4 mg (Zofran-ODT) 4 mg, oral, Once, On Thu05/09/24 at 1918, For 1 dose, When splitting ODT at bedside, handle with gloves and a pill splitter to prevent moisture contact. Given 05/09/2024 7:21 PM CDT 4 mg oxyCODONE IR tablet 10 mg (Roxicodone) 10 mg, oral, Every 4 hours PRN, moderate pain or score 4-6 of 10, Starting on Thu05/10/24 at 1130 Given 05/10/2024 1:33 PM CDT 10 mg oxyCODONE IR tablet 5 mg (Roxicodone) 5 mg, oral, Once, On Thu05/09/24 at 1449, For 1 dose Given 05/09/2024 2:55 PM CDT 5 mg oxyCODONE IR tablet 5 mg (Roxicodone) 5 mg, oral, Once, On Thu05/09/24 at 1803, For 1 dose Given 05/09/2024 6:12 PM CDT 5 mg oxyCODONE IR tablet 5 mg (Roxicodone) 5 mg, oral, Every 4 hours PRN, severe pain or score 7-10 of 10, Starting on Thu05/09/24 at 2131 Given 05/10/2024 6:58 AM CDT 5 mg Given 05/10/2024 2:01 AM CDT 5 mg Given 05/09/2024 9:54 PM CDT 5 mg oxyCODONE IR tablet 5 mg (Roxicodone) 5 mg, oral, Every 4 hours PRN, moderate pain or score 4-6 of 10, Starting on Thu05/10/24 at 1130 Given 05/11/2024 12:04 PM CDT 5 mg Given 05/11/2024 7:30 AM CDT 5 mg Given 05/11/2024 2:47 AM CDT [address] tablet 40 mg (Protonix) 40 mg, oral, Daily before morning meal, First dose on Thu05/10/24 at 0700, pantoprazole 40 mg oral daily was interchanged for omeprazole 20 or 40 mg oral daily Swallow whole. Do NOT crush, chew, or split tablet. Given 05/11/2024 6:22 AM CDT 40 mg Given 05/10/2024 6:29 AM CDT 40 mg prochlorperazine tablet 5 mg (Compazine) 5 mg, oral, Every 6 hours PRN, nausea, vomiting, Starting on Thu05/10/24 at 1331 Given 05/10/2024 2:39 PM CDT 5 mg sodium chloride (PF) 0.9 % injection 1-100 mL 1-100 mL, intravenous, Once, On Thu05/09/24 at 1524, For 1 dose, Imaging Protocol Orders, Dose per Radiant Medication Guidelines Given 05/09/2024 3:31 PM CDT 50 mL sodium chloride (PF) 0.9 % injection 1-100 mL 1-100 mL, intravenous, Once, On Thu05/10/24 at 1200, For 1 dose, Imaging Protocol Orders, Dose per Radiant Medication Guidelines Given 05/10/2024 1:07 PM CDT 50 mL sodium chloride 0.9 % injection 10 mL 10 mL, intravenous, As needed, line care, Starting on Thu05/09/24 at 2131, Peripheral Intravenous Catheter and Rapid Infusion Catheter, prior to blood sampling, post blood transfusion or post blood sampling sodium chloride 0.9 % injection 10-20 mL 10-20 mL, intravenous, During hospitalization, line care, Prior to discharge, Starting on Thu05/11/24 at 0209, For 1 dose, Implanted Vascular Access Device (IVAD) Venous Non-Valved: Flush 10 mL per port/lumen followed by heparin flush prior to discharge. sodium chloride 0.9 % injection 3 mL 3 mL, intravenous, As needed, line care, Starting on Thu05/09/24 at 2131, Prior to and following infusion and between multiple consecutive infusions: sodium chloride 0.9 % injection sodium chloride 0.9 % injection 3 mL 3 mL, intravenous, Every 12 hours scheduled, First dose on Thu05/10/24 at 0900, Peripheral Intravenous Catheter and Rapid Infusion Catheter, when no infusion to maintain patency Given 05/11/2024 10:41 AM CDT 3 mL Given 05/10/2024 8:00 AM CDT 3 mL tamsulosin 24 hr capsule 0.4 mg (Flomax) 0.4 mg, oral, Daily at bedtime, First dose on Thu05/10/24 at 2100, Swallow whole. Do NOT crush, chew or open capsule. Given 05/10/2024 9:18 PM CDT 0.4 mg documented in this encounter Active and Recently Administered Medications Times are shown in CDT. Scheduled Medication Order 05/09/2024 05/10/2024 05/11/2024 acetaminophen tablet 1,000 mg (TylenoL) (COMPLETED) 1,000 mg, oral, Once, On Thu05/09/24 at 1449, For 1 dose 1455 (Given - Provider: Harsh Sanchez IV R.N.) acetaminophen tablet 1,000 mg (TylenoL) 1,000 mg, oral, Every 6 hours, First dose on Thu05/09/24 at 2145 2202 (Given - Provider: Pao Bain RSolitarioNSolitario) 0305 (Given - Provider: Ginna Snyder, [facility], R.N.)0929 (Not Given - Provider: Patsy Hunt R.N. - Reason: Other - Comment: Nausea)1454 (Given - Provider: Constance Ivory R.N.)2118 (Given - Provider: Kelsy Barbosa RSolitarioN.) 0247 (Given - Provider: Genesis Nieto RSolitarioN.)1039 (Given - Provider: Yocasta Jeter RSolitarioN.) amLODIPine tablet 5 mg (Norvasc) 5 mg, oral, Daily, First dose on Thu05/10/24 at 0900 0800 (Given - Provider: Patsy Hunt R.N.) 1040 (Given - Provider: Yocasta Jeter RSolitarioN.) buPROPion XL 24 hr tablet 300 mg (Wellbutrin XL) 300 mg, oral, Every morning, First dose on Thu05/10/24 at 0900, Swallow whole. Do NOT crush, chew, or split tablet. 0800 (Given - Provider: Patsy Hunt R.N.) 1039 (Given - Provider: Tammy Hernandez.N.) heparin (porcine) injection 5,000 Units (CANCELED) 5,000 Units, subcutaneous, Every 8 hours scheduled, First dose on Thu05/09/24 at 2200 2202 (Given - Provider: Pao Bain R.N.) 0629 (Given - Provider: Ginna Snyder, [facility], R.N.) heparin (porcine) injection 5,000 Units 5,000 Units, subcutaneous, Every 8 hours scheduled, First dose on Thu05/10/24 at 2200 2148 (Not Given - Provider: Kelsy Barbosa R.N. - Reason: Patient/family refused) 0622 (Given - Provider: Elizabeth Holt RSolitarioNSolitario) ketorolac injection 15 mg (ToradoL) (COMPLETED) 15 mg, intravenous, Once, On Thu05/10/24 at 1500, For 1 dose, Adult IV push rate: Over 15 seconds. Peds IV push rate: Over 1 minute. Doses > 15 mg IV/IM are discouraged due to lack of additional analgesic benefit. 1454 (Given - Provider: Constance Ivory R.N.) lamoTRIgine tablet 200 mg (LaMICtaL) 200 mg, oral, Daily, First dose on Thu05/10/24 at 0900 0800 (Given - Provider: Patsy Hunt RAura) 1040 (Given - Provider: Yocasta Jeter RSolitarioNSolitario) lidocaine 5 % 1 patch (Lidoderm) 1 patch, transdermal, Administer over 12 Hours, Daily, First dose on Thu05/11/24 at 0900, Place around drain area. Remove after 12 hours. 1041 (Not Given - Provider: Yocasta Jeter R.N. - Reason: Patient/family refused) mirtazapine tablet 30 mg (Remeron) 30 mg, oral, Daily at bedtime, First dose on Thu05/10/24 at 2100 2118 (Given - Provider: Kelsy Barbosa R.N.) NaCl 0.9 % bolus 1,000 mL (COMPLETED) 1,000 mL, intravenous, at 1,000 mL/hr, Administer over 1 Hours, Once, On Thu05/09/24 at 1635, For 1 dose 1652 (New Bag - Provider: Familia Almeida RSolitarioN.)1745 (Stopped - Provider: Familia Almeida R.N.) ondansetron ODT disintegrating tablet 4 mg (Zofran-ODT) (COMPLETED) 4 mg, oral, Once, On Thu05/09/24 at 1918, For 1 dose, When splitting ODT at bedside, handle with gloves and a pill splitter to prevent moisture contact. 192 (Given - Provider: Carine Sanchez RAura, C.M.S.R.N.) oxyCODONE IR tablet 5 mg (Roxicodone) (COMPLETED) 5 mg, oral, Once, On Thu05/09/24 at 1449, For 1 dose 1455 (Given - Provider: Harsh Sanchez IV R.N.) oxyCODONE IR tablet 5 mg (Roxicodone) (COMPLETED) 5 mg, oral, Once, On Thu05/09/24 at 1803, For 1 dose 181 (Given - Provider: Deedee Steve R.N.) pantoprazole DR tablet 40 mg (Protonix) 40 mg, oral, Daily before morning meal, First dose on Thu05/10/24 at 0700, pantoprazole 40 mg oral daily was interchanged for omeprazole 20 or 40 mg oral daily Swallow whole. Do NOT crush, chew, or split tablet. 0629 (Given - Provider: Ginna Snyder, [facility], R.N.) 0622 (Given - Provider: Elizabeth Holt R.N.) sodium chloride (PF) 0.9 % injection 1-100 mL (COMPLETED) 1-100 mL, intravenous, Once, On Thu05/09/24 at 1524, For 1 dose, Imaging Protocol Orders, Dose per Radiant Medication Guidelines 1531 (Given - Provider: Leyla Way R.N.) sodium chloride (PF) 0.9 % injection 1-100 mL (COMPLETED) 1-100 mL, intravenous, Once, On Thu05/10/24 at 1200, For 1 dose, Imaging Protocol Orders, Dose per Radiant Medication Guidelines 1307 (Given - Provider: Twin Reyes) sodium chloride 0.9 % injection 3 mL 3 mL, intravenous, Every 12 hours scheduled, First dose on Thu05/10/24 at 0900, Peripheral Intravenous Catheter and Rapid Infusion Catheter, when no infusion to maintain patency 0800 (Given - Provider: Patsy Hunt R.N.)215 (Not Given - Provider: Kelsy Barbosa R.N. - Reason: Order parameters not met) 1041 (Given - Provider: Yocasta Jeter R.N.) tamsulosin 24 hr capsule 0.4 mg (Flomax) 0.4 mg, oral, Daily at bedtime, First dose on Thu05/10/24 at 2100, Swallow whole. Do NOT crush, chew or open capsule. 2117 (Given - Provider: Kelsy Barbosa R.N.) Continuous Medication Order 05/09/2024 05/10/2024 05/11/2024 Lactated Ringer's (CANCELED) 75 mL/hr, intravenous, Continuous, Starting on Thu05/10/24 at 0800 0759 (New Bag - Provider: Patsy Hunt R.N.)1458 (Restarted - Provider: Constance Ivory R.N.)1600 (Rate/Dose Verify - Provider: Kelsy Barbosa R.N.)2000 (Rate/Dose Verify - Provider: Kelsy Barbosa R.N.)2140 (Stopped - Provider: Kelsy Barbosa R.N.) PRN Medication Order 05/09/2024 05/10/2024 05/11/2024 fentaNYL injection 25 mcg (Sublimaze) (CANCELED) 25 mcg, intravenous, Every 2 min PRN, sedation, Administer over 1 minute immediately prior to the procedure. May repeat every 2 minutes to a maximum of 200 mcg, until pain score of 3 or less, or until the patient meets the pain comfort goal, or RASS 0 to -2. Do not give if respiratory rate is less than 8 breaths/minute., Starting on Thu05/10/24 at 1221, For 3 hours, Intraprocedure (RAD), Subsequent doses 1224 (Given - Provider: Heidi Elliott R.N.)1226 (Given - Provider: Heidi L Elliott, R.N.)1228 (Given - Provider: Heidi Elliott RSolitarioN.)1230 (Given - Provider: Heidi Elliott R.N.)1233 (Given - Provider: Tammy Clark.N.)1234 (Given - Provider: Tammy Clark.N.)1237 (Given - Provider: Michael ClarkN.)1241 (Given - Provider: Heidi Elliott R.N.) heparin flush 500-1,000 Units 500-1,000 Units, intra-catheter, During hospitalization, line care, Prior to discharge, Starting on Thu05/11/24 at 0209, For 1 dose, Implanted Vascular Access Device (IVAD) Venous Non-Valved: flush 5 mL (500 units) per port/lumen following saline flush prior to discharge. 1209 (Due) HYDROmorphone (PF) injection 0.4 mg (Dilaudid) 0.4 mg, intravenous, Every 3 hours PRN, break through pain, Starting on Thu05/10/24 at 1236, For 4 doses ibuprofen tablet 400 mg 400 mg, oral, Every 6 hours PRN, moderate pain or score 4-6 of 10, Starting on Thu05/09/24 at 2131, Take with food or milk if GI disturbances occur with use. iohexoL 300 mg iodine/mL solution 1-200 mL (Omnipaque) (COMPLETED) 1-200 mL, intravenous, Once in imaging, contrast, Starting on Thu05/09/24 at 1523, For 1 dose, Imaging Protocol Orders, Dose per Radiant Medication Guidelines 1531 (Given - Provider: Leyla Way RSolitarioNSolitario - Comment: [id number]) iohexoL 300 mg iodine/mL solution 1-200 mL (Omnipaque) (COMPLETED) 1-200 mL, intravenous, Once in imaging, contrast, Starting on Thu05/10/24 at 1137, For 1 dose, Imaging Protocol Orders, Dose per Radiant Medication Guidelines 1306 (Given - Provider: Twin Reyes - Comment: [id number]) Lactated Ringer's (COMPLETED) 20 mL/hr, intravenous, Once as needed, to keep vein open, Starting on Thu05/10/24 at 1221, For 1 dose, Intraprocedure (RAD) 1229 (New Bag - Provider: Heidi Elliott R.N.) lidocaine 10 mg/mL (1 %) injection (Xylocaine) (COMPLETED) As needed, Starting on Thu05/10/24 at 1235, Intra-Op 1235 (Given - Provider: Panda Masters M.D.) LORazepam tablet 0.5 mg (Ativan) 0.5 mg, oral, 3 times daily PRN, anxiety, Starting on Thu05/09/24 at 2209 0803 (Given - Provider: Patsy Hunt RSolitarioN.)1439 (Given - Provider: Constance Ivory RSolitarioNSolitario)2118 (Given - Provider: Kelsy Barbosa R.N.) methocarbamoL tablet 500 mg (Robaxin) 500 mg, oral, 3 times daily PRN, muscle spasms, Starting on Thu05/10/24 at 1434 1903 (Given - Provider: Kelsy Barbosa R.N.) 0452 (Given - Provider: Elizabeth Holt RSolitarioNSolitario) midazolam (PF) injection 0.5 mg (Versed) (CANCELED) 0.5 mg, intravenous, Every 2 min PRN, sedation, RASS -1, Starting on Thu05/10/24 at 1221, For 3 hours, Intraprocedure (RAD), May repeat every 2 minutes for a maximum of 5 mg. Do not give if respiratory rate is less than 8 breaths/minute. 1228 (Given - Provider: Heidi Elliott R.N.)1230 (Given - Provider: Heidi Elliott R.N.)1233 (Given - Provider: Heidi Elliott R.N.)1234 (Given - Provider: Heidi Elliott R.N.)1236 (Given - Provider: Heidi Elliott R.N.)1241 (Given - Provider: Heidi Elliott R.N.) midazolam (PF) injection 1 mg (Versed) (CANCELED) 1 mg, intravenous, Every 2 min PRN, sedation, RASS 0, Starting on Thu05/10/24 at 1221, For 3 hours, Intraprocedure (RAD), May repeat every 2 minutes for a maximum of 5 mg. Do not give if respiratory rate is less than 8 breaths/minute. 1224 (Given - Provider: Heidi Elliott R.N.) ondansetron (PF) injection 4 mg (Zofran) 4 mg, intravenous, Every 8 hours PRN, nausea, vomiting, Starting on Thu05/09/24 at 2131 2201 (Given - Provider: Pao Bain R.N.) 0653 (Given - Provider: Ginna Snyder, [facility], R.N.) ondansetron (PF) injection 4 mg (Zofran) (COMPLETED) 4 mg, intravenous, Once as needed, nausea, vomiting, Starting on Thu05/10/24 at 1221, For 1 dose, Intraprocedure (RAD) 1221 (Given - Provider: Heidi Elliott R.N.) oxyCODONE IR tablet 10 mg (Roxicodone)(Linked Group 1) 10 mg, oral, Every 4 hours PRN, moderate pain or score 4-6 of 10, Starting on Thu05/10/24 at 1130 1333 (Given - Provider: Constance Ivory RSolitarioN.) oxyCODONE IR tablet 5 mg (Roxicodone) (CANCELED) 5 mg, oral, Every 4 hours PRN, severe pain or score 7-10 of 10, Starting on Thu05/09/24 at 2131 2154 (Given - Provider: Michael LazcanoN.)2202 (Not Given - Provider: Pao Bain R.N. - Reason: Other) 0201 (Given - Provider: Ginna Snyder [facility], R.N.)0658 (Given - Provider: Ginna Snyder [facility], R.N.) oxyCODONE IR tablet 5 mg (Roxicodone)(Linked Group 1) 5 mg, oral, Every 4 hours PRN, moderate pain or score 4-6 of 10, Starting on Thu05/10/24 at 1130 1656 (Given - Provider: Kelsy Barbosa R.N.)2118 (Given - Provider: Kelsy Barbosa RBillie.) 0247 (Given - Provider: Genesis E Ritter, R.N.)0730 (Given - Provider: Yocasta Jeter R.N.)1204 (Given - Provider: Yocasta Jeter R.N.) prochlorperazine tablet 5 mg (Compazine) 5 mg, oral, Every 6 hours PRN, nausea, vomiting, Starting on Thu05/10/24 at 1331 1439 (Given - Provider: Constance Ivory R.N.) sodium chloride 0.9 % injection 10 mL 10 mL, intravenous, As needed, line care, Starting on Thu05/09/24 at 2131, Peripheral Intravenous Catheter and Rapid Infusion Catheter, prior to blood sampling, post blood transfusion or post blood sampling sodium chloride 0.9 % injection 10-20 mL 10-20 mL, intravenous, During hospitalization, line care, Prior to discharge, Starting on Thu05/11/24 at 0209, For 1 dose, Implanted Vascular Access Device (IVAD) Venous Non-Valved: Flush 10 mL per port/lumen followed by heparin flush prior to discharge. sodium chloride 0.9 % injection 3 mL 3 mL, intravenous, As needed, line care, Starting on Thu05/09/24 at 2131, Prior to and following infusion and between multiple consecutive infusions: sodium chloride 0.9 % injection Linked Groups Order Group 1: oxyCODONE IR tablet 5 mg (Roxicodone)Jump to med 5 mg, oral, Every 4 hours PRN, moderate pain or score 4-6 of 10, Starting on Thu05/10/24 at 1130 And oxyCODONE IR tablet 10 mg (Roxicodone)Jump to med 10 mg, oral, Every 4 hours PRN, moderate pain or score 4-6 of 10, Starting on Thu05/10/24 at 1130 documented in this encounter Additional Health Concerns Infection Onset Date Last Indicated Resolved Time Protective Environment 04/26/2024 04/26/2024 Assessment Noted Time PHQ-9 Depression Total Score: 3 04/06/20 24 7:51 PM CDT documented as of this encounter Care Teams Clinical Pharmacy Manager Relationship Specialty Start Date End Date Kayla Rowland APRN, C.N.P. [facility] [place] [phone] PCP - General 03/04/24 Roger Sorensen Therapist 02/14/20 documented as of this encounter
--- OUTSIDE RECORDS SUMMARY | 2024-05-25 00:06 | XMS_ITS | Encounter Summary ---
Author Organization [facility] Address [address] [place] [id number] Care Team Providers Care [employer] Name Role Phone Kayla Rowland APRN, C.N.P. Primary Care Provide r Reason for Visit * Outpatient (Routine) - Closed Specialty Diagnoses / Procedures Referred By Keya olivares Referred To Contact Colon and Rectal Surgery Susu Almanza D.O. [address] [place] [phone] Health System Referral ID Status Reason Start Date Expiration Date Visits Re quested Visits Authorized [id number] Closed 04/05/2024 10/05/2025 1 1 Encounter Details Date Type Department Care Team (Latest Contact Info) Description 05/05/2024 3:30 PM CDT Telemedicine Division of Colon and Rectal Surgery in [place], [place] [address] [place] [phone] Pedro Cobos P.A.-C. [address] [place] [phone] Ileostomy Status (HCC) (Primary Dx); Follow Up Examination Postoperative Visit Social History Tobacco Use Types Packs/Day Years Used Date Smoking Tobacco: Former Cigarettes 1 - 08/18/2015 Smokeless Tobacco: Never Alcohol Use Standard Drinks/Week Comments Not Currently 0 (1 standard drink = 0.6 oz pur e alcohol) [facility] Utilities Answer Date Recorded In the past 12 months has [employer], gas, oil, or water company threatened to shut off services in your home? No 05/05/2024 Humiliation, Afraid, Rape, and Kick questionnair e Answer Date Recorded Within the last year, have y ou been afraid of your partner or ex-partner? Patient declined 03/29/2024 Within the last year, have y ou been humiliated or emotionally abused in other ways by your partner or ex-partner? Patient declined 03/29/2024 Within the last year, have y ou been kicked, hit, slapped, or otherwise physically hurt by your partner or ex-partner? Patient declined 03/29/2024 Within the last year, have y ou been raped or forced to have any kind of sexual activity by your partner or ex-partner? Patient declined 03/29/2024 Social Connection and Isolat ion Panel [NHANES] [...] Answer Date Recorded PHQ-2 Score 0 04/06/2024 [facility] of Occupat ional Health - Occupational Stress [...] the money to buy more. Never true 05/05/20 24 Within the past 12 months, t he food you bought just didn't last and you didn't have money to get more. Never true 05/05/2024 PRAPARE - Transportation Answer Date Re corded In the past 12 months, has l ack of transportation kept you from medical appointments or from getting medications? No 04/18 In the past 12 months, has l ack of transportation kept you from meetings, work, or from getting things needed for daily living? No 05/05/2024 Depression Answer Date Recor ded PHQ-9 Total [...] your living situation today? I have a [facility] place to live 05/05/2024 Education Answer Date Recorded What is the highest level of school you have completed or the highest degree you have received? 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 - 05/05/2024 3:30 PM CDT SUBJECTIVE HISTORY OF PRESENT ILLNESS Heriberto Snowden presents to the department of colon and rectal surgery for a post-operative visit. 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 Surgeon: Dr. Tej Quintanilla Heriberto reports No nausea or vomiting. Tolerating a general diet. He is passing stool and flatus. . He has a Ileostomy with no concerns. Urine output is appropriate. Pain is controlled with oral analgesics. Pain level: 2 and 4 New pelvic pain starting 3-4 days ago. He states he may have overdid it earlier this week and thinks this may be contributing to his increased pain. The pain has been manageable. He also states that he has no sexual function. He has been prescribed Viagra to see if this helps. ASSESSMENT / PLAN #1 Ileostomy Status (HCC) #2 Follow Up Examination Postoperative Visit Other orders - Colon and Rectal Surgery office visit (clinic) Discussed general post-operative restrictions. Reviewed < 10 pounds lifting restrictions for 6 weeks. Discussed diet and introducing raw fruits and vegetables. Heriberto is progressing as expected postoperatively. We discussed the operative findings and expectedcourse from this point and the patient expressed understanding. We discussed that his pain may certainly be attributed to his increased activity earlier this week however the CT will help determine whether there is anything more complicated going on. He will be in touch with us if his pain does notresolve. We discussed implementing more fiber into his diet which will help with his looser stools through this stoma. However we did discuss that his stools will typically be looser with his ileostomy. He will have no restrictions after next week however we discussed slowly incorporating new and more activities as he tolerates them. We discussed that his sexual function can take 6 months up to ayear to fully return however we would be happy to refer him to urology at 3 months postop. He has apostop CT scan tomorrow and will be following up with Oncology later this month. All questions were answered. The patient will contact us if he has any additional questions or concerns. documented in this encounter Plan of Treatment Upcoming Encounters Date Type Department Care Team (Late st Contact Info) Description 06/01/2024 9:30 AM CDT Clinical Support Division of Colon and Rectal Surgery in [place], [place] [address] [place] [phone] Armida Bullock APRN, C.N.P., M.S.N. [address] [place] [phone] 06/07/2024 9:20 AM CDT Lab Department of Infusion Therapy in [place], [place] [address] [place] [phone] Mariluz Soler M.D. [address] [place] [phone] 06/07/2024 11:20 AM CDT Office Visit Department of Oncology in [place], [place] [address] [place] [phone] Mariluz Soler M.D. [address] [place] [phone] 06/07/2024 1:00 PM CDT Infusion Department of Oncology in [place], [place] [address] [place] [phone] Mariluz Soler M.D. [address] [place] [phone] 06/17/2024 8:30 AM CDT Appointment Department of Laboratory Medicine and Pathology, [facility], in [place], [place] [address] [place] [phone] Anny Mcneill M.D. [address] [place] [phone] 06/17/2024 9:00 AM CDT Lab Department of Infusion Therapy in [place], [place] [address] [place] [phone] Anny Mcneill M.D. [address] [place] [phone] 06/17/2024 10:45 AM CDT Procedure visit Department of Urology in [place], [place] [address] [place] [phone] Anny Mcneill M.D. [address] [place] [phone] 06/17/2024 1:45 PM CDT Comprehensive Visit Department of Urology in [place], [place] [address] [place] [phone] Ayesha Romero P.A.-C. [address] [place] [phone] 06/17/2024 4:15 PM CDT Comprehensive Visit Department of Urology in [place], [place] [address] [place] [phone] Scotty Tom, JAD, CSolitarioN.P. [address] [place] [phone] documented as of this encounter Goals Goal Patient Goal Type Associated Problems Recent Progress Patient-Stated? Author Eat a balanced, healthy diet Diet Worsening( 11:49 AM CDT) Yes [place] R.N. Note: 02/14/20 - Has one regular meal daily (supper), otherwise not as hungry and snacks on fruit in AM, chips in evening. Will readdress his dietary goals and see if this makes a difference in his mood. Read Managing My Depression General Improving( 11:43 AM CDT) Yes [place] R.N. Note: P. 46-48 Create a relapse prevention plan. Spend time with my dog again. General On track( 020 11:43 AM CDT) Yes [place] R.N. Have some time to himself regularly. General On track( 11:47 AM CDT) Yes Nadia Nickerson R.N. Note: 01/24/20 - More structure to his day. 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 Recognizing he needs more personal time. Meet with therapist regularly General On track( 11:43 AM CDT) Yes Krishan, Nadia Boone R.N. Note: Dr. Pavan Sorensen, with [facility] in [place], [place]. Take your medication every day Lifestyle [...] (HCC)- Primary Follow Up Examination Postoperative Visit documented in this encounter Additional Health Concerns Infection Onset Date Last Indicated Resolved Time Protective Environment 04/26/2024 04/26/2024 Assessment Noted Time PHQ-9 Depression Total Score: 3 04/06/20 24 7:51 PM CDT documented as of this encounter Care Teams [employer] M[employer] Relationship Specialty Start Date End Date Kayla Rowland APRN, C.N.P. [address] [place] [phone] PCP - General 03/04/24 Roger Sorensen Therapist 02/14/20 documented as of this encounter
--- OUTSIDE RECORDS SUMMARY | 2024-05-25 00:06 | XMS_ITS | Encounter Summary ---
Author Organization [facility] Address [address] [place] [id number] Care Team Providers Care Vp Marketing Services And Skin Name Role Phone Kayla Rowland APRN, C.N.P. Primary Care Provide r Encounter Details Date Type Department Care Team (Late st Contact Info) Description 05/10/2024 Clinical Communication Department of Oncology in [place], [place] [address] [place] [phone] Patsy Bowser APRN, C.N.P., M.S. [address] [place] [address] Social History Tobacco Use Types Packs/Day Years Used Date Smoking Tobacco: Former Cigarettes 1 - 08/18/2015 Smokeless Tobacco: Never Alcohol Use Standard Drinks/Week Comments Not Currently 0 (1 standard drink = 0.6 oz pur e alcohol) [facility] Utilities Answer Date Recorded In the past 12 months has [facility] [employer], oil, or water [employer] threatened to shut off services in your home? No 05/10/2024 Humiliation, Afraid, Rape, and Kick questionnair e Answer Date Recorded Within the last year, have y ou been afraid of your partner or ex-partner? No 05/10/2024 Within the last year, have y ou been humiliated or emotionally abused in other ways by your partner or ex-partner? No Within the last year, have y ou been kicked, hit, slapped, or otherwise physically hurt by your partner or ex-partner? No 05/10/2024 Within the last year, have y ou been raped or forced to have any kind of sexual activity by your partner or ex-partner? No 05/10/2024 Social Connection and Isolat ion Panel [NHANES] Answer Date Recorded In a typical week, how many times do you talk on the phone with family, friends, or neighbors? More than three times a week 12/06/2021 How often do you get togethe r with friends or relatives? Three times a week 12/06/2021 How often do you attend chur ch or roman catholic services? Never 12/06/2021 Do you belong to [...] Answer Date Recorded PHQ-2 Score 0 04/06/2024 [facility] Occupat ional [facility] - Occupational Stress [...] the money to buy more. Never true 05/10/20 24 Within the past 12 months, t he food you bought just didn't last and you didn't have money to get more. Never true 05/10/2024 PRAPARE - Transportation Answer Date Re corded In the past 12 months, has l ack of transportation kept you from medical appointments or from getting medications? No 04/19 In the past 12 months, has l ack of transportation kept you from meetings, work, or from getting things needed for daily living? No 05/10/2024 Depression Answer Date Recor ded PHQ-9 Total [...] your living situation today? I have a [facility] place to live 05/10/2024 Education Answer Date Recorded What is the highest level of school you have completed or the highest degree you have received? 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 - 05/10/2024 11:51 AM CDT Was able to visit with Mr. Snowden today in the hospital. I have been in contact with the hospital team as well as the RIP team. Mr. Snowden understands he has pelvic abscess and is having a drain placed later on today. In discussion with the team, the recommendation is to proceed with CT AP angiogram to further assess the indeterminate fluid around the RIP P catheter. This will be done as an inpatient. From an oncological perspective, we will plan on holding his systemic therapy as long as he has a pelvic abscess. He is due for heparin saline and his RIP pump, we will set up an outpatient appointment in our chemotherapy suite tomorrow after he has dismissed to accommodate this. He understands that even though he has this infection overall does not inhibit our ability to continue on with treatment once he has recovered. He is comfortable this plan and very comfortable with the team taking care of him. documented in this encounter Plan of Treatment Upcoming Encounters Date Type Department Care Team (Late st Contact Info) Description 06/01/2024 9:30 AM CDT Clinical Support Division of Colon and Rectal Surgery in [address] [phone] Armida Bullock APRN, C.N.Murtaza., M.S.N. [address] [place] [phone] 06/07/2024 9:20 AM CDT Lab Department of Infusion Therapy in [address] [phone] Mariluz Soler M.D. [address] [place] [phone] 06/07/2024 11:20 AM CDT Office Visit Department of Oncology in [address] [phone] Mariluz Soler M.D. [address] [place] [phone] 06/07/2024 1:00 PM CDT Infusion Department of Oncology in [address] [phone] Mariluz Soler M.D. [address] [place] [phone] 06/17/2024 8:30 AM CDT Appointment Department of Laboratory Medicine and Pathology, [facility], in [place], [place] [address] [place] [phone] Anny Mcneill M.D. [address] [place] [phone] 06/17/2024 9:00 AM CDT Lab Department of Infusion Therapy in [place], [place] [address] [place] [phone] Anny Mcneill M.D. [address] [place] [phone] 06/17/2024 10:45 AM CDT Procedure visit Department of Urology in [place], [place] [address] [place] [phone] Anny Mcneill M.D. [address] [place] [phone] 06/17/2024 1:45 PM CDT Comprehensive Visit Department of Urology in [place], [place] [address] [place] [phone] Ayesha Romero, P.A.-C. [address] [place] [phone] 06/17/2024 4:15 PM CDT Comprehensive Visit Department of Urology in [place], [place] [address] [place] [phone] Scotty Tom, COMMUNITY ENGAGEMENT COORDINATOR, C.N.P. [address] [place] [phone] documented as of this encounter Goals Goal Patient Goal Type Associated Problems Recent Progress Patient-Stated? Author Eat a balanced, healthy diet Diet Worsening( 11:49 AM CDT) Yes [place], Nadia Boone R.N. Note: 02/14/20 - Has [...] General On track( 11:47 AM CDT) Yes [place], Michael McgheeN. Note: 01/24/20 - More structure to his day. 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 Recognizing he needs more personal time. Meet with therapist regularly General On track( 11:43 AM CDT) Yes [place], Nadia Boone R.N. Note: Dr. Pavan Sorensen, with [facility] in [place], [place]. Take your medication every day Lifestyle On track( 11:49 AM CDT) No Nadia Nickerson R.N. Note: Increased Wellbutrin to 300 mg daily 02/09/20. PHQ-9 Total Score (max 27) < 5 Symptom Management 3(04/06/2024 7:51 PM CDT) No HighgroveNadia, R.N. Note: Enrollment PHQ9=18 on 08/16/19 Patient [...] documented as of this encounter Care Teams Vp Marketing Services And Skin Relationship Specialty Start Date End Date Kayla Rowland APRN, C.N.P. [address] [place] [phone] PCP - General 03/04/24 Roger Sorensen Therapist 02/14/20 documented as of this encounter
--- OUTSIDE RECORDS SUMMARY | 2024-05-25 00:06 | XMS_ITS | Encounter Summary ---
Author Organization [facility] Address [address] [place] [address] Care Team Providers Care Reference Librarian Name Role Phone Kayla Rowland APRN, C.N.P. Primary Care Provide r Encounter Details Date Type Department Care Team (Late st Contact Info) Description 05/10/2024 Orders Only Department of Oncology in [place], [place] [address] [place] [phone] Patsy Bowser APRN, C.N.P., M.S. [address] [place] [address] Social History Tobacco Use Types Packs/Day Years Used Date Smoking Tobacco: Former Cigarettes 1 - 08/18/2015 Smokeless Tobacco: Never Alcohol Use Standard Drinks/Week Comments Not Currently 0 (1 standard drink = 0.6 oz pur e alcohol) [facility] Utilities Answer Date Recorded In the past 12 months has [facility] [employer] gas, oil, or water [employer] threatened to shut off services in your [...] often do you attend chur ch or scientologist services? Never 12/06/2021 Do you belong to any clubs o r organizations such as christian groups, unions, fraternal or athletic groups, or [...] your living situation today? I have a [facility] place to live 05/10/2024 Education Answer Date Recorded What is the highest level of school you have completed or the highest degree you have received? 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 [address] [place] [phone] 06/07/2024 9:20 AM CDT Lab Department of Infusion Therapy in [place], [place] 200 [place] [phone] Mariluz Soler M.D. [address] [place] [phone] 06/07/2024 11:20 AM CDT Office Visit Department of Oncology in [place], [place] [address] [place] [phone] Mariluz Soler M.D. [address] [place] [phone] 06/07/2024 1:00 PM CDT Infusion Department of Oncology in [place], [place] [address] [place] [phone] Mariluz Soler M.D. [address] [place] [phone] 06/17/2024 8:30 AM CDT Appointment Department of Laboratory Medicine and Pathology, [facility] in [place], [place] [address] [place] [phone] Anny Mcneill M.D. [address] [place] [phone] 06/17/2024 9:00 AM CDT Lab Department of Infusion Therapy in [place], [place] [address] [place] [phone] Anny Mcneill M.D. [address] [place] [phone] 06/17/2024 10:45 AM CDT Procedure visit Department of Urology in [place], [place] [address] [place] [phone] Anny Mcneill M.D. [address] [place] [phone] 06/17/2024 1:45 PM CDT Comprehensive Visit Department of Urology in [place], [place] [address] [place] [phone] Ayesha Romero P.A.-C. [address] [place] [phone] 06/17/2024 4:15 PM CDT Comprehensive Visit Department of Urology in [place], [place] [address] [place] [phone] Scotty Tom APRN, C.NSolitarioP. [address] [place] [phone] documented as of this encounter Goals Goal Patient Goal Type Associated Problems Recent Progress Patient-Stated? Author Eat a balanced, healthy diet Diet Worsening( 11:49 AM CDT) Yes Gower, Nadia Boone R.N. Note: 02/14/20 - Has one regular meal daily (supper), otherwise not as hungry and snacks on fruit in AM, chips in evening. Will readdress his dietary goals and see if this makes a difference in his mood. Read Managing My Depression General Improving( 11:43 AM CDT) Yes Gower, Nadia Boone R.N. Note: P. 46-48 Create a relapse prevention plan. Spend time with my dog again. General On track( 11:43 AM CDT) Yes GowerNadia R.N. Have some time to himself regularly. General On track( 11:47 AM CDT) Yes Gower, Tammy Mcghee.N. Note: 01/24/20 - More structure to his day. 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 Recognizing he needs more personal time. Meet with therapist regularly General On track( 11:43 AM CDT) Yes Gower, Nadia Boone R.N. Note: Dr. Pavan Sorensen, with [facility] in [place], [place]. Take your medication every day Lifestyle On track( 020 11:49 AM CDT) No Nadia Nickerson, R.N. Note: Increased Wellbutrin to 300 mg daily 02/09/20. PHQ-9 Total Score (max 27) < 5 Symptom Management 3(04/06/2024 7:51 PM CDT) No Krishan, Nadia Boone, R.N. Note: Enrollment PHQ9=18 on [...] documented as of this encounter Care Teams Reference Librarian Relationship Specialty Start Date End Date Kayla Rowland APRN, C.N.P. [facility] Hospital[facility]ur[facility] [place] [phone] PCP - General 03/04/24 Roger Sorensen Therapist 02/14/20 documented as of this encounter
--- OUTSIDE RECORDS SUMMARY | 2024-05-25 00:06 | XMS_ITS | Encounter Summary ---
Author Organization [facility] Address [address] [place] [address] Care Team Providers Care Case Managers Name Role Phone Kayla Rowland APRN, C.N.P. 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 [address] [place] [address] [facility] Referral ID Status Reason Start Date Expiration Date Visits Re quested Visits Authorized [id number] Closed 04/03/2024 04/03/2025 1 1 Encounter Details Date Type Department Care Team (Latest Contact Info) Description 05/06/2024 8:04 AM CDT - 05/06/2024 11:59 PM CDT Hospital Encounter Department of Radiology, [facility], in [place], [place] [address] [place] [address] Genesis Suresh P.A.-C. 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 Never 12/06/2021 Do you belong to any clubs o r organizations such as voodoo groups, unions, fraternal or athletic groups, or [...] Answer Date Recorded PHQ-2 Score 0 04/06/2024 [facility] Occupat ional [facility] - Occupational Stress Questionnaire Answer Date Recorded [...] living situation today? I have a [facility] place to live 05/05/2024 Education Answer Date Recorded What is the highest level of school you have completed or the highest degree you have received? 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 90 tablet 11 12/23/2022 05/09/2024 lidocaine (LIDODERM) 5 % adhesive patch,medicated Place 1 patch on the skin daily. Apply to area of most pain. 5 patch 04/03/2024 05/15/2024 LORazepam (ATIVAN) 0.5 mg tablet Take 1 tablet (0.5 mg total) by mouth 3 (three) times a day as needed (prn nausea). Take Caution in combination use with Narcotic pain meds. Can cause excessive sedation 04/03/2024 05/09/2024 methocarbamoL (Robaxin) 500 mg tablet Take 2 tablets (1,000 mg total) by mouth 4 (four) times a day as needed for muscle spasms. 35 tablet 04/16/2024 05/15/2024 oxyCODONE (ROXICODONE) 5 mg immediate release tabletIndications:Ac james Pain Exception Take 1 tablet (5 mg total) by mouth every 3 (three) hours as needed for moderate pain or score 4-6 of 10 Indication: Acute Pain Exception. 40 tablet 04/03/2024 05/08/2024 oxyCODONE (Roxicodone) 5 mg immediate release tabletIndications:Ac [...] 04/03/2024 05/20/2024 documented as of this encounter Plan of Treatment Upcoming Encounters Date Type Department Care Team (Late st Contact Info) Description 06/01/2024 9:30 AM CDT Clinical Support Division of Colon and Rectal Surgery in [place], [place] [address] [place] [address] Armida Bullock APRN, C.N.P., M.S.N. [address] [place] [phone] 06/07/2024 9:20 AM CDT Lab Department of Infusion Therapy in [place], [place] [address] [place] [phone] Mariluz Soler M.D. [address] [place] [phone] 06/07/2024 11:20 AM CDT Office Visit Department of Oncology in [place], [place] [address] [place] [phone] Mariluz Soler M.D. [address] [place] [phone] 06/07/2024 1:00 PM CDT Infusion Department of Oncology in [place], [place] [address] [place] [phone] Mariluz Soler M.D. [address] [place] [phone] 06/17/2024 8:30 AM CDT Appointment Department of Laboratory Medicine and Pathology, [facility], in [place], [place] [address] [place] [phone] Anny Mcneill M.D. [address] [place] [phone] 06/17/2024 9:00 AM CDT Lab Department of Infusion Therapy in [place], [place] [address] [place] [phone] Anny Mcneill M.D. [address] [place] [phone] 06/17/2024 10:45 AM CDT Procedure visit Department of Urology in [place], [place] [address] [place] [address] Anny Mcneill M.D. [address] [place], [place] [phone] 06/17/2024 1:45 PM CDT Comprehensive Visit Department of Urology in [place], [place] [address] [place] [phone] Ayesha Romero P.A.-C. [address] [place] [phone] 06/17/2024 4:15 PM CDT Comprehensive Visit Department of Urology in [place], [place] [address] [place] [phone] Scotty Tom APRN, C.NMarco. [address] [place] [phone] documented as of this encounter Goals Goal Patient Goal Type Associated Problems Recent Progress Patient-Stated? Author Eat a balanced, healthy diet Diet Worsening( 11:49 AM CDT) Yes [place], Nadia Boone R.N. Note: 02/14/20 - Has one regular meal daily (supper), otherwise not as hungry and snacks on fruit in AM, chips in evening. Will readdress his dietary goals and see if this makes a difference in his mood. Read Managing My Depression General Improving( 11:43 AM CDT) Yes [place], Nadia Boone R.N. Note: P. 46-48 Create a relapse prevention plan. Spend time with my dog again. General On track( 11:43 AM CDT) Yes Nadia Nickerson R.N. Have some time to himself regularly. General On track( 11:47 AM CDT) Yes [place], Nadia Boone R.N. Note: 01/24/20 - More structure to his day. 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 Recognizing he needs more personal time. Meet with therapist regularly General On track( 11:43 AM CDT) Yes Nadia Nickerson R.N. Note: Dr. Pavan Sorensen, with [employer] in [place], [place]. Take your medication every day Lifestyle On track( 11:49 AM CDT) No [place], Nadia Boone R.N. 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 Genesis Suresh P.A.-C. [facility] PROCED[place] * CT Abdomen Pelvis with IV Contrast (05/06/2024 9:17 AM CDT) Anatomical Region Laterality Modality Abdomen, Pelvis, Abdominal R ST LOS, Abdominal ARZ LOS, Abdominal FLA LOS N/A Computed Tomograp hy, Computed Tomography 05/06/2024 9:16 AM CDT Impressions 05/06/2024 9:45 AM CDT Postoperative changes in the abdomen and pelvis with small amount of new presacral fluid collection and multiple surgical and ablation defects in the liver. No suspicious residual hepatic lesions or lymphadenopathy seen. Narrative 05/06/2024 9:45 AM CDT EXAM: ??CT ABDOMEN PELVIS WITH IV CONTRAST. COMPARISON: ??CT dated 03/21/2024 and MRI dated 01/20/2024. FINDINGS: ??Interval status post low anterior resection with right lower quadrant diverting ileostomy, cholecystectomy, multiple hepatic wedge resections and ablations (03/29/2024). Multiple surgical and ablation defects seen in the liver. Stable tiny cyst in the right liver dome. Additional tiny likely cyst along the anterior surface of the left hepatic lobe (series 1 image 33). No suspicious remaining masses seen in the liver. Hepatic artery infusion pump with the infusion chamber in the left anterior abdominal wall. Mild splenomegaly with the spleen measures 15.3 cm in AP dimension. The pancreas and adrenal glands are unremarkable. Mild cortical scarring in the upper pole left kidney. Bilateral renal cysts. No suspicious lymphadenopathy in the abdomen or pelvis. Seen in the anterior abdominal wall. Normal caliber small and large bowel. New presacral fluid collection, measuring 4.5 x 3.1 x 8.0 cm. Diffusely thickened and trabeculated urinary bladder wall. Mild prostatic enlargement. No suspicious osseous lesions seen. Tiny fat-containing left inguinal hernia. This examination was performed in conjunction with a CT of the chest, which will be reported separately. Procedure Note Nirmal Gauthier M.D., Ph.D. - 05/06/2024 EXAM: CT ABDOMEN PELVIS WITH IV CONTRAST. COMPARISON: CT dated 03/21/2024 and MRI dated 01/20/2024. FINDINGS: Interval status post low anterior resection with right lowerquadrant diverting ileostomy, cholecystectomy, multiple hepatic wedgeresections and ablations (03/29/2024). Multiple surgical and ablation defects seen in the liver. Stable tiny cystin the right liver dome. Additional tiny likely cyst along the anteriorsurface of the left hepatic lobe (series 1 image 33). No suspiciousremaining masses seen in the liver. Hepatic artery infusion pump with the infusion chamber in the leftanterior abdominal wall. Mild splenomegaly with the spleen measures 15.3 cm in AP dimension. Thepancreas and adrenal glands are unremarkable. Mild cortical scarring inthe upper pole left kidney. Bilateral renal cysts. No suspiciouslymphadenopathy in the abdomen or pelvis. Seen in the anterior abdominal wall. Normal caliber small and large bowel.New presacral fluid collection, measuring 4.5 x 3.1 x 8.0 cm. Diffuselythickened and trabeculated urinary bladder wall. Mild prostaticenlargement. No suspicious osseous lesions seen. Tiny fat-containing left inguinal hernia. This examination was performed in conjunction with a CT of the chest,which will be reported separately. IMPRESSION: Postoperative changes in the abdomen and pelvis with small amount of newpresacral fluid collection and multiple surgical and ablation defects inthe liver. No suspicious residual hepatic lesions or lymphadenopathyseen. Genesis Suresh P.A.-C. 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 Given 05/06/2024 9:25 AM CDT 500 Units iohexoL 300 mg iodine/mL solution 1-200 mL (Omnipaque) 1-200 mL, intravenous, Once in imaging, contrast, Starting on Thu05/06/24 at 0809, For 1 dose, Imaging Protocol Orders, Dose per [facility]iant Medication Guidelines Given 05/06/2024 9:11 AM CDT 140 mL sodium chloride (PF) 0.9 % injection 1-100 mL 1-100 mL, intravenous, Once, On Thu05/06/24 at 0830, For 1 dose, Imaging Protocol Orders, Dose per Radiant Medication Guidelines Given 05/06/2024 9:11 AM CDT 50 mL sodium chloride 0.9 % injection 10-20 mL 10-20 mL, intravenous, As needed, line care, Prior to discharge, Starting on Thu05/06/24 at 0814, Implanted Vascular Access Device (IVAD) Venous Non-Valved: Flush 10 mL per port/lumen followed by heparin flush prior to discharge. Given 05/06/2024 9:25 AM CDT 10 mL Given 05/06/2024 8:36 AM CDT 10 mL documented in this encounter Additional Health Concerns Infection Onset Date Last Indicated Resolved Time Protective Environment 04/26/2024 04/26/2024 Assessment Noted Time PHQ-9 Depression Total Score: 3 04/06/20 7:51 PM CDT documented as of this encounter Care Teams Case Managers Relationship Specialty Start Date End Date Kayla Rowland APRN, C.N.P. [address] [place] [phone] PCP - General 03/04/24 Roger Sorensen Therapist 02/14/20 documented as of this encounter
--- OUTSIDE RECORDS SUMMARY | 2024-05-25 00:06 | XMS_ITS | Encounter Summary ---
Author Organization [facility] Address [address] [place] [address] Care Team Providers Care Tube Coater Name Role Phone Kayla Rowland APRN, C.N.P. Primary Care Provide r Reason for Visit * Outpatient (Routine) - Closed Specialty Diagnoses / Procedures Referred By Keya olivares Referred To Contact General Surgery Genesis Suresh, Amy [address] [place] [phone] [facility] Referral ID Status Reason Start Date Expiration Date Visits Re quested Visits Authorized [id number] Closed 04/03/2024 10/03/2025 1 1 Encounter Details Date Type Department Care Team (Latest Contact Info) Description 05/06/2024 10:30 AM CDT Office Visit Division of Hepatobiliary and Pancreas Surgery in [place], [place] [address] [place] [phone] Joann Rausch APRN, C.N.P., M.S.N. [address] [place] [phone] Malignant Neoplasm Of Rectum (HCC) (Primary Dx); Secondary Malignant Neoplasm Liver (HCC); Follow Up Examination Postoperative Visit; Ileostomy Status (HCC) Social History Tobacco Use Types Packs/Day Years Used Date Smoking Tobacco: Former Cigarettes 1 - 08/18/2015 Smokeless Tobacco: Never Alcohol Use Standard Drinks/Week Comments Not Currently 0 (1 standard drink = 0.6 oz pur e alcohol) [facility] Utilities Answer Date Recorded In the past 12 months has [facility] [employer], [employer], oil, or water [employer] threatened to shut off services in your [...] often do you attend chur ch or baptism services? Never 12/06/2021 Do you belong to any clubs o r organizations such as holiness groups, unions, fraternal or athletic groups, or [...] Recorded PHQ-2 Score 0 04/06/2024 [facility] [place] of Occupat ional Health - Occupational Stress [...] money to buy more. Never true 05/05/20 Within the past 12 months, t he [...] your living situation today? I have a [facility] place to live 05/05/2024 Education Answer Date Recorded What is the highest level of school you have completed or the highest degree you have received? Master's degree (e.g., MA, MS, Aba, MEd, STAFF READINESS OFFICER, GAMALIEL) 08/15/2019 Sex and Gender Information Value Date Recorded Sex Assigned at Male 09/09/2023 12:48 PM VICE PRESIDENT OF RECRUITING Gender Identity Male 08/15/2019 2:16 PM CDT Sexual Orientation Straight 08/15/2019 2: 16 PM CDT documented as of this encounter Progress Notes * Joann Rausch APRN, C.N.P., M.S.N. - 05/06/2024 10:30 AM CDT SUBJECTIVE Mr. Snowden is a 43 y.o. 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 Viera and Dr. Quintanilla. His postoperative course was complicated by urinary retention . He has been struggling with his mood since surgery. He is concerned his medications are not getting fully absorbed. He is working closely with his therapist. He currently denies fever, chills. He is tolerating oral intake. He reports no nausea and no vomiting. Stools are are loose through the ostomy. Weight loss is appropriate. Over the past week he does report pain and discomfort in his lower pelvic area around his tailbone. He rates his pain a 5/10. He does state he has been more active over the last week. He has been taking some Tylenol and ibuprofen intermittently. He does also report pressure in this area as well. Drain: None Antibiotics: None Feeding tube: None Pancreatic enzymes: None Antidiarrheals: Imodium prn GI prophylaxis: PPI daily Anticoagulation: None OBJECTIVE Wt Readings from Last 3 Encounters: 04/26/24 99 kg 04/12/24 101 kg 04/03/24 98.3 kg Pain is well controlled. Pain education was given. PHYSICAL EXAMINATION General: Patient is alert, non-toxic appearing. Abdomen: Soft, appropriately tender. Incisions well-healed. Labs and imaging reviewed. There is a small amount of new presacral fluid collection noted on CT. Collection measures 4.5 x 3.1 x 8.0 ASSESSMENT / PLAN #1 Malignant Neoplasm Of Rectum (HCC) #2 Secondary Malignant Neoplasm Liver (HCC) #3 Follow Up Examination Postoperative Visit #4 Ileostomy Status (HCC) Mr. Snowden is doing well postoperatively. We discussed the expected post- operative course from this point and he expresses understanding. Maintenance of adequate hydration and protein intake were encouraged. We discussed activity restrictions which lapse 6 weeks postoperatively. The fluid collection is asymptomatic with no signs of infection and should resolve on its own. We did discuss what worrisome signs and symptoms to monitor for. I am not sure if this is entirely the cause of his lower pelvic pain but will continue to monitor. Should he develop any fevers he will likely need a course of antibiotics and possible drainage of this fluid. GI prophylaxis: PPI daily Pathology report reviewed with the patient. He has follow up with medical oncology as scheduled. All questions were answered to his satisfaction. He will contact us if any additional questions or concerns arise. At this point the patient is dismissed from our surgical service. documented in this encounter Miscellaneous Notes * Addendum Note - Alcides Ferreira M.D. - 05/06/2024 10:30 AM CDT Addended by: ALCIDES FERREIRA on: 05/08/2024 10:22 PM Modules accepted: Orders documented in this encounter Plan of Treatment Upcoming Encounters Date Type Department Care Team (Late st Contact Info) Description 06/01/2024 9:30 AM CDT Clinical Support Division of Colon and Rectal Surgery in [address] [phone] Armida Bullock APRN, C.N.P., M.S.N. [address] [place] [phone] 06/07/2024 9:20 AM CDT Lab Department of Infusion Therapy in [address] [phone] Mariluz Soler M.D. [address] [place] [phone] 06/07/2024 11:20 AM CDT Office Visit Department of Oncology in [address] [phone] Mariluz Soler M.D. [address] [place] [phone] 06/07/2024 1:00 PM CDT Infusion Department of Oncology in [place], [place] [address] [place] [phone] Mariluz Soler M.D. [address] [place] [phone] 06/17/2024 8:30 AM CDT Appointment Department of Laboratory Medicine and Pathology, [facility] in [place], [place] [address] [place] [phone] Anny Mcneill M.D. [address] [place] [phone] 06/17/2024 9:00 AM CDT Lab Department of Infusion Therapy in [place], [place] [address] [place] [phone] Anny Mcneill M.D. [address] [place] [phone] 06/17/2024 10:45 AM CDT Procedure visit Department of Urology in [place], [place] [address] [place] [phone] Anny Mcneill M.D. [address] [place] [phone] 06/17/2024 1:45 PM CDT Comprehensive Visit Department of Urology in [place], [place] [address] [place] [phone] Ayesha Romero P.A.-C. [address] [place] [phone] 06/17/2024 4:15 PM CDT Comprehensive Visit Department of Urology in [place], [place] [address] [place] [address] Scotty Tom, JAD, C.N.P. [address] [place] [phone] documented as of this encounter Goals Goal Patient Goal Type Associated Problems Recent Progress Patient-Stated? Author Eat a balanced, healthy diet Diet Worsening( 11:49 AM CDT) Yes [place], Nadia Boone R.N. Note: 02/14/20 - Has one regular meal daily (supper), otherwise not as hungry and snacks on fruit in AM, chips in evening. Will readdress his dietary goals and see if this makes a difference in his mood. Read Managing My Depression General Improving( 11:43 AM CDT) Yes [place], Nadia Boone R.N. Note: P. 46-48 Create a relapse prevention plan. Spend time with my dog again. General On track( 11:43 AM CDT) Yes [place], Nadia Boone R.N. Have some time to himself regularly. General On track( 11:47 AM CDT) Yes [place], Nadia Boone R.N. Note: 01/24/20 - More structure to his day. Thankful for this time to network liaison. Recognizing he needs more personal time. Meet with therapist regularly General On track( 11:43 AM CDT) Yes [place], Nadia Boone R.N. Note: Dr. Pavan Sorensen, with [employer] in [place], [place]. Take your medication every day Lifestyle On track( 11:49 AM CDT) No [place], Michael McgheeN. Note: Increased Wellbutrin to 300 mg daily 02/09/20. PHQ-9 Total Score (max 27) < 5 Symptom Management 3(04/06/2024 7:51 PM CDT) No [place], Nadia Boone R.N. Note: Enrollment PHQ9=18 on 08/16/19 Patient goals at enrollment: 1. I'd like to have my depression be less intense. 2. I'd like to learn some coping strategies. 3. I'd like to learn how to keep my depression from flaring back again documented as of this encounter Visit Diagnoses Diagnosis Malignant Neoplasm Of Rectum (HCC)- Primary Secondary Malignant Neoplasm Liver (HCC) Follow Up Examination Postoperative Visit Ileostomy Status (HCC) documented in this encounter Additional Health Concerns Infection Onset Date Last Indicated Resolved Time Protective Environment 04/26/2024 04/26/2024 Assessment Noted Time PHQ-9 Depression Total Score: 3 04/06/20 24 7:51 PM CDT documented as of this encounter Care Teams Tube Coater Relationship Specialty Start Date End Date Kayla Rowland APRN, C.N.P. [address] [place] [phone] PCP - General 03/04/24 Roger Sorensen Therapist 02/14/20 documented as of this encounter
--- OUTSIDE RECORDS SUMMARY | 2024-05-25 00:06 | XMS_ITS | Encounter Summary ---
Author Organization [facility] Address [address] [place] [address] Care Team Providers Care Engagement Executive Name Role Phone Kayla Rowland APRN, C.N.P. Primary Care Provide r Reason for Visit * Outpatient (Routine) - Closed Specialty Diagnoses / Procedures Referred By Keya olivares Referred To Contact Diagnoses Ileostomy Status (HCC) Procedures Stomal Therapy Armida Bullock APRN C.N.P., M.S.N. [address] [place] [phone] [facility] Referral ID Status Reason Start Date Expiration Date Visits Re quested Visits Authorized [id number] Closed 05/02/2024 05/02/2025 1 1 Encounter Details Date Type Department Care Team (Latest Contact Info) Description 05/06/2024 9:30 AM CDT Clinical Support Division of Colon and Rectal Surgery in [place], [place] [address] [place] [phone] Armida Bullock APRN, C.N.P., M.S.N. [address] [place] [phone] Tanya Herman R.N., C.W.O.C.N. [address] [place] [phone] Ileostomy Status (HCC) Social History Tobacco Use Types Packs/Day Years Used Date Smoking Tobacco: Former Cigarettes 1 - 08/18/2015 Smokeless Tobacco: Never Alcohol Use Standard Drinks/Week Comments Not Currently 0 (1 standard drink = 0.6 oz pur e alcohol) [facility] Utilities Answer Date Recorded In [...] often do you attend chur ch or temple services? Never 12/06/2021 Do you belong to any clubs o r organizations such as pentecostal groups, unions, fraternal or athletic groups, or [...] Answer Date Recorded PHQ-2 Score 0 04/06/2024 [facility] of Occupat ional Health - Occupational Stress [...] your living situation today? [facility] 05/05/2024 Education Answer Date Recorded What is the highest level of school you have completed or the highest degree you have received? 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 - 05/06/2024 9:30 AM CDT SUBJECTIVE CHIEF COMPLAINT/REASON FOR VISIT Assessment of pouch system HISTORY OF PRESENT ILLNESS Mr. Snowden is a 43 y.o. male referred by Armida Bullock APRN, C.N.P., M.S.N. for assessment ofpouching system. He presented with his . He reported the pouch placed 4 days ago was changed with some undermining at 9 o'clock after 2 day wear time. The pouch placed 2 days ago is still intact.He also reported improved peristomal skin irritation. He applies stoma powder and skin barrier wipeto peristomal skin irritation. His assists in pouching change. PMH Status post lower anterior resection with loop ileostomy by Dr. Quintanilla on March 29, 2024 for rectal cancer OBJECTIVE Physical Exam Ostomy (NEW) Ileostomy RLQ (Active) Site Assessment Red;Flush --Proximal loop empties at the center over distal loop. Stoma Size 1 x 1-3/8 Skin Assessment Denuded;Red --0.2-0.5 cm denuded skin and pink intact skin circumferentially; improved from 4 days ago. --Rash mostly at wafer edge inferiorly, possibly folliculitis. --Retraction at 3-9 o'clock. Skin Care Water;Stoma powder;Liquid skin barrier --Hair trimmed; discussed cleansing folliculitis appearing rash with antibacterial soap. Pouching system status Changed Changed by Wound germination worker;Patient;Family;Observed Pouching System Removed Coloplast 50611, 07756, 4237 --Minimal undermining circumferentially after 2 day wear time. Pouching System Applied Coloplast pouch 41562 with opening cut to 1 x 1-3/8, Coloplast protectiveseal 68731 around wafer opening, Coloplast 1 belt 4237 --Same system applied; discussed changing apouch every 2 days. Ongoing management Patient/caregiver Output Description Brown;Semi-liquid;Stool ASSESSMENT / PLAN Mr. Snowden, 43 y.o., has an ileostomy. Three sets of supplies and ordering information given. Prescription current. He orders supplies through [facility]. Encouraged to call or return ([facility] Appointment Protocol [id number]) for ostomy related questions or concerns. All questions were answered. documented in this encounter Plan of Treatment Upcoming Encounters Date Type Department Care Team (Late st Contact Info) Description 06/01/2024 9:30 AM CDT Clinical Support Division of Colon and Rectal Surgery in [address] [phone] Armida Bullock APRN, C.N.P., M.S.N. [address] [place] [phone] 06/07/2024 9:20 AM CDT Lab Department of Infusion Therapy in [address] [phone] Mariluz Soler M.D. [address] [place] [phone] 06/07/2024 11:20 AM CDT Office Visit Department of Oncology in [address] [phone] Mariluz Soler M.D. [address] [place] [phone] 06/07/2024 1:00 PM CDT Infusion Department of Oncology in [address] [phone] Mariluz Soler M.D. [address] [place] [phone] 06/17/2024 8:30 AM CDT Appointment Department of Laboratory Medicine and Pathology, [facility] in [address] [place] [phone] Anny Mcneill M.D. [address] [place] [phone] 06/17/2024 9:00 AM CDT Lab Department of Infusion Therapy in [place], [place] [address] [place] [phone] Anny Mcneill M.D. [address] [place] [phone] 06/17/2024 10:45 AM CDT Procedure visit Department of Urology in [place], [place] [address] [place] [phone] Anny Mcneill M.D. [address] [place] [phone] 06/17/2024 1:45 PM CDT Comprehensive Visit Department of Urology in [place], [place] [address] [place] [phone] Ayesha Romero, P.A.-C. [address] [place] [phone] 06/17/2024 4:15 PM CDT Comprehensive Visit Department of Urology in [place], [place] [address] [place] [phone] Scotty Tom, JAD, C.N.P. [address] [place] [phone] documented as of this encounter Goals Goal Patient Goal Type Associated Problems Recent Progress Patient-Stated? Author Eat a balanced, healthy diet Diet Worsening( 11:49 AM CDT) Yes Kuna, Nadia Boone R.N. Note: 02/14/20 - Has one regular meal daily (supper), otherwise not as hungry and snacks on fruit in AM, chips in evening. Will readdress his dietary goals and see if this makes a difference in his mood. Read Managing My Depression General Improving( 11:43 AM CDT) Yes Kuna, Nadia Boone R.N. Note: P. 46-48 Create a relapse prevention plan. Spend time with my dog again. General On track( 11:43 AM CDT) Yes Krishan, Nadia Boone R.N. Have some time to himself regularly. General On track( 11:47 AM CDT) Yes Kuna, Nadia Boone R.N. Note: 01/24/20 - More structure to his day. 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 Recognizing he needs more personal time. Meet with therapist regularly General On track( 11:43 AM CDT) Yes Kuna, Nadia Boone R.N. Note: Dr. Pavan Sorensen, with [facility] in [place], [place]. Take your medication every day Lifestyle On track( 11:49 AM CDT) No Nadia Nickerson R.N. Note: Increased Wellbutrin to 300 mg daily 02/09/20. PHQ-9 Total Score (max 27) < 5 Symptom Management 3(04/06/2024 7:51 PM CDT) No Kuna, Nadia Boone R.N. Note: Enrollment PHQ9=18 on 08/16/19 Patient goals at enrollment: 1. I'd like to have my depression be less intense. 2. I'd like to learn some coping strategies. 3. I'd like to learn how to keep my depression from flaring back again documented as of this encounter Procedures Procedure Name Priority Date/Time Associated Diagnosis Comments CRS STOMAL THERAPY Routine 05/06/2024 9:34 AM CDT Ileostomy Status (HCC) documented in this encounter Visit Diagnoses Diagnosis Ileostomy Status (HCC) documented in this encounter Additional Health Concerns Infection Onset Date Last Indicated Resolved Time Protective Environment 04/26/2024 04/26/2024 Assessment Noted Time PHQ-9 Depression Total Score: 3 04/06/20 24 7:51 PM CDT documented as of this encounter Care Teams Engagement Executive Relationship Specialty Start Date End Date Kayla Rowland APRN, C.N.P. [address] [place] [phone] PCP - General 03/04/24 Roger Sorensen Therapist 02/14/20 documented as of this encounter
--- OUTSIDE RECORDS SUMMARY | 2024-05-25 00:07 | XMS_ITS | Encounter Summary ---
Author Organization [facility] Address [address] [place] [address] Care Team Providers Care Executive Chairman Of The Board Name Role Phone Kayla Rowland APRN, C.N.P. Primary Care Provide r Reason for Visit * Reason Onset Date Comments Pre-visit Intake 05/03/2024 Encounter Details Date Type Department Care Team (Latest Contact Info) Description 05/03/2024 12:15 PM CDT Clinical Communication Virtual Review in [place], [place] 200 [place] [address] Pre-visit Intake Social History Tobacco Use Types Packs/Day Years Used Date Smoking Tobacco: Former Cigarettes 1 - 08/18/2015 Smokeless Tobacco: Never Tobacco Cessation:Counseling Given: Not Answered Alcohol Use Standard Drinks/Week Comments Not Currently 0 (1 standard drink = 0.6 oz pur e alcohol) [facility] Utilities Answer Date Recorded In the past [address] [facility] [place], gas, oil, or water [employer] threatened to shut off services in your home? Patient declined 03/29/2024 Humiliation, Afraid, Rape, and Kick questionnair e [...] How often do you attend chur or roman catholic services? Never 12/06/2021 Do you belong to any clubs o r organizations such as oriental orthodox groups, unions, fraternal or athletic groups, or [...] Answer Date Recorded PHQ-2 Score 0 04/06/2024 [facility] of Occupat ional Health - Occupational [...] to strenuous exercise (like a brisk walk)? 6 days 12/06/2021 On average, how many minutes do you engage in exercise at this level? 60 min 12/06/2021 Hunger Vital Sign Answer Date Recorded Within the past 12 months, y ou worried that your food would run out before you got the money to buy more. Patient declined Within the past 12 months, t he food you bought just didn't last and you didn't have money to get more. Patient declined 08/2024 PRAPARE - Transportation Answer Date Re corded In the past 12 months, has l ack of transportation kept you from medical appointments or from getting medications? Patient declined 03/29/2024 In the past 12 months, has l ack of transportation kept you from meetings, work, or from getting things needed for daily living? Patient declined 03/29/2024 Depression Answer Date Recor ded PHQ-9 Total Score (max 27) 3 04/06 Nutrition Answer Date Recorded On average, how many serving s of fruits and vegetables do you eat per day (serving size is equal to 1 cup or approximately the size of a tennis ball)? 4-5 12/06/2021 Dental Answer Date Recorded Dental: Regular Dentist No 12/06/19 Employment Answer Date Recorded Employment status Employed and actively working without restrictions 12/06/2021 Housing Stability Answer Date Recorded What is your living situation today? Patient dec lined 03/29/2024 Education Answer Date Recorded What is the highest level of school you have completed or the highest degree you have received? Master's degree (e.g., MA, MS, Aba, MEd, TRACTOR MECHANIC APPRENTICE, GAMALIEL) 08/15/2019 Sex and Gender Information Value Date Recorded Sex Assigned at Male 09/09/2023 12:48 PM MOBILE APPLICATION DEVELOPMENT LEAD Gender Identity Male 08/15/2019 2:16 PM CDT Sexual Orientation Straight 08/15/2019 2: 16 PM CDT documented as of this encounter Plan of Treatment Upcoming Encounters Date Type Department Care Team (Late st Contact Info) Description 06/01/2024 9:30 AM CDT Clinical Support Division of Colon and Rectal Surgery in [place], [place] [address] [place] [phone] Armida Bullock APRN, C.N.P., M.S.N. [address] [place] [phone] 06/07/2024 9:20 AM CDT Lab Department of Infusion Therapy in [place], [place] [address] [place] [phone] Mariluz Soler M.D. [address] [place] [phone] 06/07/2024 11:20 AM CDT Office Visit Department of Oncology in [place], [place] [address] [place] [address] Mariluz Soler M.D. [address] [place] [phone] 06/07/2024 1:00 PM CDT Infusion Department of Oncology in [place], [place] [address] [place] [phone] Mariluz Soler M.D. [address] [place] [phone] 06/17/2024 8:30 AM CDT Appointment Department of Laboratory Medicine and Pathology, [facility] in [place], [place] [address] [place] [phone] Anny Mcneill M.D. [address] [place] [phone] 06/17/2024 9:00 AM CDT Lab Department of Infusion Therapy in [place], [place] [address] [place] [phone] Anny Mcneill M.D. [address] [place] [phone] 06/17/2024 10:45 AM CDT Procedure visit Department of Urology in [place], [place] [address] [place] [phone] Anny Mcneill M.D. [address] [place] [phone] 06/17/2024 1:45 PM CDT Comprehensive Visit Department of Urology in [place], [place] [address] [place] [phone] NickAyesha armenta P.A.-C. [address] [place] [phone] 06/17/2024 4:15 PM CDT Comprehensive Visit Department of Urology in [place], [place] [address] [place] [phone] Scotty Tom APRN, C.NSolitarioP. [address] [place] [phone] documented as of this encounter Goals Goal Patient Goal Type Associated Problems Recent Progress Patient-Stated? Author Eat a balanced, healthy diet Diet Worsening( 11:49 AM CDT) Yes La Pryor, Nadia Boone R.N. Note: 02/14/20 - Has one regular meal daily (supper), otherwise not as hungry and snacks on fruit in AM, chips in evening. Will readdress his dietary goals and see if this makes a difference in his mood. Read Managing My Depression General Improving( 11:43 AM CDT) Yes La Pryor, Nadia Boone R.N. Note: P. 46-48 Create a relapse prevention plan. Spend time with my dog again. General On track( 11:43 AM CDT) Yes La PryorNadia R.N. Have some time to himself regularly. General On track( 11:47 AM CDT) Yes La Pryor, Nadia Boone R.N. Note: 01/24/20 - More structure to his day. Thankful for this time to solid waste collection worker. Recognizing he needs more personal time. Meet with therapist regularly General On track( 11:43 AM CDT) Yes La Pryor, Nadia Boone R.N. Note: Dr. Pavan Sorensen, with [employer] in [place], [place]. Take your medication every day Lifestyle On track(04/28/2 020 11:49 AM CDT) No Nadia Nickerson RSolitarioNSolitario Note: Increased Wellbutrin to 300 mg daily [...] documented as of this encounter Care Teams Executive Chairman Of The Board Relationship Specialty Start Date End Date Kayla Rowland APRN, C.N.P. [address] [place] [phone] PCP - General 03/04/24 Roger Sorensen Therapist 02/14/20 documented as of this encounter
--- OUTSIDE RECORDS SUMMARY | 2024-05-25 00:07 | XMS_ITS | Encounter Summary ---
Author Organization [facility] Address [address] [place] [address] Care Team Providers Care Diagnostic Tech Name Role Phone Kayla Rowland APRN, C.N.P. Primary Care Provide r Encounter Details Date Type Department Care Team (Late st Contact Info) Description 05/02/2024 10:20 AM CDT Lab Department of Infusion Therapy in [place], [place] [address] [place] [phone] Mariluz Soler M.D. 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 200 [place] [address] 06/07/2024 9:20 AM CDT Lab Department of Infusion Therapy in [place], [place] [address] [place] [phone] Mariluz Soler M.D. [address] [place] [phone] 06/07/2024 11:20 AM CDT Office Visit Department of Oncology in [place], [place] [address] [place] [phone] Mariluz Soler M.D. [address] [place] [phone] 06/07/2024 1:00 PM CDT Infusion Department of Oncology in [place], [place] [address] [place] [phone] Mariluz Soler M.D. [address] [place] [phone] 06/17/2024 8:30 AM CDT Appointment Department of Laboratory Medicine and Pathology, [facility] in [place], [place] [address] [place] [phone] Anny Mcneill M.D. [address] [place] [phone] 06/17/2024 9:00 AM CDT Lab Department of Infusion Therapy in [place], [place] [address] [place] [phone] Anny Mcneill M.D. [address] [place] [phone] 06/17/2024 10:45 AM CDT Procedure visit Department of Urology in [place], [place] [address] [place] [phone] Anny Mcneill M.D. [address] [place] [phone] 06/17/2024 1:45 PM CDT Comprehensive Visit Department of Urology in [place], [place] [address] [place] [phone] Ayesha Romero P.A.-C. [address] [place] [address] 06/17/2024 4:15 PM CDT Comprehensive Visit Department of Urology in [place], [place] [address] [place] [phone] Scotty Tom APRN, C.N.P. [address] [place] [phone] documented as of this encounter Goals Goal Patient Goal Type Associated Problems Recent Progress Patient-Stated? Author Eat a balanced, healthy diet Diet Worsening( 11:49 AM CDT) Yes [place], Nadia Boone R.N. Note: 02/14/20 - Has one regular meal daily (supper), otherwise not as hungry and snacks on fruit in AM, chips in evening. Will readdress his dietary goals and see if this makes a difference in his mood. Read Managing My Depression General Improving( 11:43 AM CDT) Yes [place], Nadia Boone R.N. Note: P. 46-48 Create a relapse prevention plan. Spend time with my dog again. General On track( 11:43 AM CDT) Yes SalinaNadia R.N. Have some time to himself regularly. General On track( 11:47 AM CDT) Yes [place], Nadia Boone R.N. Note: 01/24/20 - More structure to his day. 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 Recognizing he needs more personal time. Meet with therapist regularly General On track( 11:43 AM CDT) Yes [place], Nadia Boone R.N. Note: Dr. Pavan Sorensen, with [facility] in [place], [place]. Take your medication every day Lifestyle [...] Procedure Name Priority Date/Time Associated Diagnosis Comments [facility]ENT OUT [facility] Routine 05/02/2024 10:04 AM CDT documented in this encounter Results * [facility] - Sent Out Lab (05/02/2024 10:04 AM CDT) Test Name Peace 05/02/2024 1:24 PM CDT [facility] Result SEE COMMENT 05/17/2024 9:42 AM CDT [facility] Comment: For final report, select Lab-Send Out Lab Results hyperlink below. 05/02/2024 10:0 4 AM CDT 05/02/2024 1:24 PM CDT Mariluz Soler M.D. LAB [facility] [address] [place] [address], [facility] 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 5 mL (500 units) of Heparin 100 units/mL to each port/lumen. When IVAD not accessed or infusing: When no infusion to maintain patency flush every 28 days following NaCL flush. 5 mL (500 units) of Heparin 100 units/mL to each port/lumen. Given 05/02/2024 10:09 AM CDT 500 Units sodium chloride 0.9 % injection 20-40 mL 20-40 mL, intra-catheter, As needed, line care, Starting on Thu05/02/24 at 1008, When IVAD accessed and infusing: Flush prior to blood sampling, post blood transfusion or post blood sampling. 20 mL to each port/lumen. Given 05/02/2024 10:09 AM CDT 40 mL documented in this encounter Additional Health Concerns Infection Onset Date Last Indicated Resolved Time Protective Environment 04/26/2024 04/26/2024 Assessment Noted Time PHQ-9 Depression Total Score: 3 04/06/20 24 7:51 PM CDT documented as of this encounter Care Teams Diagnostic Tech Relationship Specialty Start Date End Date Kayla Rowland APRN, C.N.P. [address] [place] [phone] PCP - General 03/04/24 Roger Sorensen Therapist 02/14/20 documented as of this encounter
--- OUTSIDE RECORDS SUMMARY | 2024-05-25 00:07 | XMS_ITS | Encounter Summary ---
Author Organization [facility] Address [address] [place] [address] Care Team Providers Care Director Public Service Name Role Phone Kayla Rowland APRN C.N.P. Primary Care Provide r Reason for Referral * Outpatient (Routine) - Closed Specialty Diagnoses / Procedures Referred By Keya olivares Referred To Contact Diagnoses Ileostomy Status (HCC) Procedures Stomal Therapy Armida Bullock APRN, C.N.Murtaza., M.S.N. [address] [place] [phone] [facility] Referral ID Status Reason Start Date Expiration Date Visits Re quested Visits Authorized [id number] Closed 05/02/2024 05/02/2025 1 1 Reason for Visit * Outpatient (Routine) - Closed Specialty Diagnoses / Procedures Referred By Contac t Referred To Contact Diagnoses Ileostomy Status (HCC) Procedures Stomal Therapy Tej Quintanilla M.B., Ch.B., M.P.H. [address] [place] [phone] [facility] Referral ID Status Reason Start Date Expiration Date Visits Re quested Visits Authorized [id number] Closed 04/20/2024 04/20/2025 1 1 Encounter Details Date Type Department Care Team (Latest Contact Info) Description 05/02/2024 8:30 AM CDT Clinical Support Division of Colon and Rectal Surgery in [place], [place] [address] [place] [phone] Tej Quintanilla M.B., Ch.B., M.P.H. [address] [place] [phone] Gloria Rapp R.N., COCN [address] [place] [phone] Ileostomy Status (HCC) Social History Tobacco Use Types Packs/Day Years Used Date Smoking Tobacco: Former Cigarettes 1 - 08/18/2015 Smokeless Tobacco: Never Alcohol Use Standard Drinks/Week Comments Not Currently 0 (1 standard drink = 0.6 oz pur e alcohol) [facility] World[employer] Developments[employer] Answer Date Recorded In the past 12 months has e Getting-in, gas, oil, or water [employer] threatened to shut off services in [...] How often do you attend chur or church services? 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 HISTORY OF PRESENT ILLNESS Heriberto Snowden is a 43 y.o. male seen for an evaluation of pouching system management. Reports having issues with leakage and skin irritation. They state the pouching system is usually changed every 3 or 4 days. Patient reports the skin irritation has been present since last visit 3 weeks ago. He reports having trouble coping with the stoma and wonders if there is a recommendation for support groups. OBJECTIVE Physical Exam Ostomy (NEW) Ileostomy RLQ (Active) Site Assessment Flush;Red Hyperplastic nodule at 6 o'clock treated with silver nitrate. Applied two sticks of Silver Nitrate per Peristomal Skin Protocol [id number]. Patient denies discomfort with application. Stoma Size 1 x 1 3/8 Skin Assessment Denuded;Painful;Other (Comment) Denuded at 7 to 10 o'clock 1 cm. Circumferential redness. Skin Care Water;Stoma powder;Liquid skin barrier Cavilon advance skin protectant used. Patient willuse crusting technique when he changes on Thursday. Pouching System (Stomal Appliance) Status Changed Changed by Wound surgical aides teacher Pouching System Removed Izaiah 17764, 8750 from 3 to 9 o'clock, 49805, 7300 Undermining after 1 day at 8 o'clock Pouching System Applied Coloplast 87830 light convex, 53947 protective seal and 4237 1 inch belt. Also given Nuhope 6323-A hernia support belt Patient having difficulty rounding stoma for placement. Will cut oval and trial new system to see if patient likes Coloplast better then Peak. Ongoing management Patient/caregiver Output Description Liquid;Stool Discussed stool thickening foods and if not affective adding metamucil after meals mixed in applesauce. Patient endorses being afraid to eat and has been eating mostlymeat. Discussed a visit with a anhydrous ammonia production supervisor and he is going to reach out to service for a referral. Discussed that we don't current have a support group her at [facility]. Patient will look into support groups online. He could look at The united ostomy association of [place] website to assist in finding a group. ASSESSMENT / PLAN Patient was in agreement with this plan. Questions answered. Patient will need updated supply list if system works well. Return appointment scheduled per Return Appointment Protocol [id number]. documented in this encounter Plan of Treatment Upcoming Encounters Date Type Department Care Team (Late st Contact Info) Description 06/01/2024 9:30 AM CDT Clinical Support Division of Colon and Rectal Surgery in [place], [place] [address] [place] [phone] Armida Bullock, JAD, C.N.P., M.S.N. [address] [place] [phone] 06/07/2024 9:20 AM CDT Lab Department of Infusion Therapy in [place], [place] [address] [place] [phone] Mariluz Soler M.D. [address] [place] [phone] 06/07/2024 11:20 AM CDT Office Visit Department of Oncology in [place], [place] [address] [place] [phone] Mariluz Soler M.D. [address] [place] [phone] 06/07/2024 1:00 PM CDT Infusion Department of Oncology in [place], [place] [address] [place] [phone] Mariluz Soler M.D. [address] [place] [phone] 06/17/2024 8:30 AM CDT Appointment Department of Laboratory Medicine and Pathology, [facility], in [place], [place] [address] [place] [phone] Anny Mcneill M.D. [address] [place] [phone] 06/17/2024 9:00 AM CDT Lab Department of Infusion Therapy in [place], [place] [address] [place] [phone] Anny Mcneill M.D. [address] [place] [phone] 06/17/2024 10:45 AM CDT Procedure visit Department of Urology in [place], [place] [address] [place] [phone] Anny Mcneill M.D. [address] [place] [phone] 06/17/2024 1:45 PM CDT Comprehensive Visit Department of Urology in [place], [place] [address] [place] [phone] Ayesha Romero P.A.-C. [address] [place] [phone] 06/17/2024 4:15 PM CDT Comprehensive Visit Department of Urology in [place], [place] [address] [place] [phone] Scotty Tom, JAD, UrielN.P. [address] [place] [phone] documented as of this encounter Goals Goal Patient Goal Type Associated Problems Recent Progress Patient-Stated? Author Eat a balanced, healthy diet Diet Worsening( 11:49 AM CDT) Yes Amanda, Nadia Boone R.N. Note: 02/14/20 - Has one regular meal daily (supper), otherwise not as hungry and snacks on fruit in AM, chips in evening. Will readdress his dietary goals and see if this makes a difference in his mood. Read Managing My Depression General Improving( 11:43 AM CDT) Yes Amanda, Nadia Boone R.N. Note: P. 46-48 Create a relapse prevention plan. Spend time with my dog again. General On track( 11:43 AM CDT) Yes Nadia [place] R.N. Have some time to himself regularly. General On track( 11:47 AM CDT) Yes Amanda, Nadia Boone RSolitarioN. Note: 01/24/20 - More structure to his day. 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 Recognizing he needs more personal time. Meet with therapist regularly General On track( 11:43 AM CDT) Yes Amanda, Nadia Boone R.N. Note: Dr. Pavan Sorensen, with [facility] in [place], [place]. Take your medication every day Lifestyle On track( 11:49 AM CDT) No Nadia [place] R.N. Note: Increased Wellbutrin to 300 mg daily 02/09/20. PHQ-9 Total Score (max 27) < 5 Symptom Management 3(04/06/2024 7:51 PM CDT) No Amanda, Nadia Boone R.N. Note: Enrollment PHQ9=18 on 08/16/19 Patient goals at enrollment: 1. I'd like to have my depression be less intense. 2. I'd like to learn some coping strategies. 3. I'd like to learn how to keep my depression from flaring back again documented as of this encounter Procedures Procedure Name Priority Date/Time Associated Diagnosis Comments CRS STOMAL THERAPY Routine 05/02/2024 8:21 AM CDT Ileostomy Status (HCC) documented in this encounter Visit Diagnoses Diagnosis Ileostomy Status (HCC) documented in this encounter Additional Health Concerns Infection Onset Date Last Indicated Resolved Time Protective Environment 04/26/2024 04/26/2024 Assessment Noted Time PHQ-9 Depression Total Score: 3 04/06/20 24 7:51 PM CDT documented as of this encounter Care Teams Director Public Service Relationship Specialty Start Date End Date Kayla Rowland APRN, C.N.P. [address] [place] [phone] PCP - General 03/04/24 Roger Sorensen Therapist 02/14/20 documented as of this encounter
--- OUTSIDE RECORDS SUMMARY | 2024-05-25 00:07 | XMS_ITS | Encounter Summary ---
Author Organization [facility] Address [address] [place] [address] Care Team Providers Care Rn Geriatric Name Role Phone Kayla Rowland APRN, C.N.P. Primary Care Provide r Reason for Visit * Reason Onset Date Comments Forms 05/04/2024 [employer] Encounter Details Date Type Department Care Team (Latest Contact Info) Description 05/04/2024 Clinical Communication Department of Oncology in [place], [place] [address] [place] [phone] Rena Mccray R.N., O.C.N. [address] [place] [phone] Forms ([employer]) Social History Tobacco Use Types Packs/Day Years Used Date Smoking Tobacco: Former Cigarettes 1 - 08/18/2015 Smokeless Tobacco: Never Alcohol Use Standard Drinks/Week Comments Not Currently 0 (1 standard drink = 0.6 oz pur e alcohol) [facility] Utilities Answer Date Recorded In the past 12 months has [place], gas, oil, or water [employer] threatened to shut off services in your [...] often do you attend chur ch or samaritan services? Never 12/06/2021 Do you belong to [...] Score 0 04/06/2024 [facility] - Occupational [...] your living situation today? I have a [facility] place to live 05/05/2024 Education Answer Date Recorded What is the highest level of school you have completed or the highest degree you have received? 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 [address] [place] [phone] 06/07/2024 9:20 AM CDT Lab Department of Infusion Therapy in [place], [place] [address] [place] [phone] Mariluz Soler M.D. [address] [place] [phone] 06/07/2024 11:20 AM CDT Office Visit Department of Oncology in [place], [place] [address] [place] [phone] Mariluz Soler M.D. [address] [place] [phone] 06/07/2024 1:00 PM CDT Infusion Department of Oncology in [place], [place] [address] [place] [phone] Mariluz Soler M.D. [address] [place] [phone] 06/17/2024 8:30 AM CDT Appointment Department of Laboratory Medicine and Pathology, [facility] in [place], [place] [address] [place] [phone] Anny Mcneill M.D. [address] [place] [phone] 06/17/2024 9:00 AM CDT Lab Department of Infusion Therapy in [place], [place] [address] [place] [phone] Anny Mcneill M.D. [address] [place] [phone] 06/17/2024 10:45 AM CDT Procedure visit Department of Urology in [place], [place] [address] [place] [phone] Anny Mcneill M.D. [address] [place] [phone] 06/17/2024 1:45 PM CDT Comprehensive Visit Department of Urology in [place], [place] [address] [place] [phone] Ayesha Romero P.A.-C. [address] [place] [phone] 06/17/2024 4:15 PM CDT Comprehensive Visit Department of Urology in [place], [place] [address] [place] [phone] Scotty Tom APRN, C.N.P. [address] [place] [phone] documented as of this encounter Goals Goal Patient Goal Type Associated Problems Recent Progress Patient-Stated? Author Eat a balanced, healthy diet Diet Worsening( 11:49 AM CDT) Yes [place], Nadia Boone R.N. Note: 02/14/20 - Has one regular meal daily (supper), otherwise not as hungry and snacks on fruit in AM, chips in evening. Will readdress his dietary goals and see if this makes a difference in his mood. Read Managing My Depression General Improving( 11:43 AM CDT) Yes [place], Nadia Boone R.N. Note: P. 46-48 Create a relapse prevention plan. Spend time with my dog again. General On track( 11:43 AM CDT) Yes [place], Michael McgheeN. Have some time to himself regularly. General On track( 11:47 AM CDT) Yes [place], Nadia Boone R.N. Note: 01/24/20 - More structure to his day. 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 Recognizing he needs more personal time. Meet with therapist regularly General On track( 11:43 AM CDT) Yes [place], Nadia Boone R.N. Note: Dr. Pavan Sorensen, with [facility] in [place], [place]. Take your medication every day Lifestyle On track( 020 11:49 AM CDT) No Nadia [place] RBillie. Note: Increased Wellbutrin to 300 mg daily [...] documented as of this encounter Care Teams Rn Geriatric Relationship Specialty Start Date End Date Kayla Rowland APRN, C.N.P. [address] [facility] [place] [phone] PCP - General 03/04/24 Roger Sorensen Therapist 02/14/20 documented as of this encounter
--- OUTSIDE RECORDS SUMMARY | 2024-05-25 00:07 | XMS_ITS | Encounter Summary ---
Author Organization [facility] Address [address] [place] [address] Care Team Providers Care Ring Conductor Name Role Phone Kayla Rowland APRN, C.N.P. Primary Care Provide r Reason for Visit * Reason Comments Med Refill Encounter Details Date Type Department Care Team (Late st Contact Info) Description 05/04/2024 Refill Department of Oncology in [place], [place] [address] [place] [phone] Rena Mccray, RBillie., O.C.N. [address] [place] [phone] Med Refill Social History Tobacco Use Types Packs/Day Years Used Date Smoking Tobacco: Former Cigarettes 1 - 08/18/2015 Smokeless Tobacco: Never Alcohol Use Standard Drinks/Week Comments Not Currently 0 (1 standard drink = 0.6 oz pur e alcohol) [facility] Utilities Answer Date Recorded In the past 12 months has [facility], gas, oil, or water [employer] threatened to shut off services in your [...] How often do you attend chur or nondenominational services? Never 12/06/2021 Do you belong to any clubs o r organizations such as pentecostalism groups, unions, fraternal or athletic groups, or [...] Answer Date Recorded PHQ-2 Score 0 04/06/2024 [facility] Questionnaire Answer Date [...] your living situation today? I have a [facility] place to live 05/05/2024 Education Answer Date Recorded What is the highest level of school you have completed or the highest degree you have received? Master's degree (e.g., MA, MS, Aba, MEd, TRAFFIC EXPERT, GAMALIEL) 08/15/2019 Sex and Gender Information Value Date Recorded Sex Assigned at Male 09/09/2023 12:48 PM ENROLLMENT SPECIALIST Gender Identity Male 08/15/2019 2:16 PM CDT Sexual Orientation Straight 08/15/2019 2: 16 PM CDT documented as of this encounter Plan of Treatment Upcoming Encounters Date Type Department Care Team (Late st Contact Info) Description 06/01/2024 9:30 AM CDT Clinical Support Division of Colon and Rectal Surgery in [place], [place] [address] [place] [phone] Armida Bullock, JAD, C.N.P., M.S.N. [address] [place] [phone] 06/07/2024 9:20 AM CDT Lab Department of Infusion Therapy in [place], [place] [address] [place] [phone] Mariluz Soler M.D. [address] [place] [phone] 06/07/2024 11:20 AM CDT Office Visit Department of Oncology in [place], [place] [address] [place] [phone] Mariluz Soler M.D. [address] [place] [phone] 06/07/2024 1:00 PM CDT Infusion Department of Oncology in [place], [place] [address] [place] [phone] Mariluz Soler M.D. [address] [place] [phone] 06/17/2024 8:30 AM CDT Appointment Department of Laboratory Medicine and Pathology, [facility] in [place], [place] [address] [place] [phone] Anny Mcneill M.D. [address] [place] [phone] 06/17/2024 9:00 AM CDT Lab Department of Infusion Therapy in [place], [place] [address] [place] [phone] Anny Mcneill M.D. [address] [place] [phone] 06/17/2024 10:45 AM CDT Procedure visit Department of Urology in [place], [place] [address] [place] [phone] Anny Mcneill M.D. [address] [place] [phone] 06/17/2024 1:45 PM CDT Comprehensive Visit Department of Urology in [place], [place] [address] [place] [phone] Ayesha Romero P.A.-C. [address] [place] [phone] 06/17/2024 4:15 PM CDT Comprehensive Visit Department of Urology in [place], [place] [address] [place] [phone] Scotty Tom APRN, UrielNSolitarioP. [address] [place] [phone] documented as of this encounter Goals Goal Patient Goal Type Associated Problems Recent Progress Patient-Stated? Author Eat a balanced, healthy diet Diet Worsening( 11:49 AM CDT) Yes [place], Nadia Boone R.N. Note: 02/14/20 - Has one regular meal daily (supper), otherwise not as hungry and snacks on fruit in AM, chips in evening. Will readdress his dietary goals and see if this makes a difference in his mood. Read Managing My Depression General Improving( 11:43 AM CDT) Yes [place], Tammy Mcghee.N. Note: P. 46-48 Create a relapse prevention plan. Spend time with my dog again. General On track( 11:43 AM CDT) Yes [place], Nadia Boone R.N. Have some time to himself regularly. General On track( 11:47 AM CDT) Yes [place], Nadia Boone R.N. Note: 01/24/20 - More structure to his day. 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 Recognizing he needs more personal time. Meet with therapist regularly General On track( 11:43 AM CDT) Yes [place], Tammy Mcghee.Curtis. Note: Dr. Pavan Sorensen, with [facility] in [place], [place]. Take your medication every day Lifestyle On track( 020 11:49 AM CDT) No [place], Nadia Boone RSolitarioN. Note: Increased Wellbutrin to 300 mg daily 02/09/20. PHQ-9 Total Score (max 27) < 5 Symptom Management 3(04/06/2024 7:51 PM CDT) No [place], Nadia Boone RSolitarioN. Note: Enrollment PHQ9=18 on 08/16/19 Patient [...] documented as of this encounter Care Teams Ring Conductor Relationship Specialty Start Date End Date Kayla Rowland APRN, C.N.P. [address] [place] [phone] PCP - General 03/04/24 Roger Sorensen Therapist 02/14/20 documented as of this encounter
--- OUTSIDE RECORDS SUMMARY | 2024-05-25 00:07 | XMS_ITS | Encounter Summary ---
Author Organization [facility] Address [address] [place] [address] Care Team Providers Care Utility Porter Name Role Phone Kayla Rowland APRN, C.N.P. Primary Care Provide r Encounter Details Date Type Department Care Team (Late st Contact Info) Description 05/02/2024 Orders Only Department of Oncology in [place], [place] [address] [place] [phone] Rena Mccray R.N., O.C.N. 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 [address] [place] [phone] 06/07/2024 9:20 AM CDT Lab Department of Infusion Therapy in [place], [place] [address] [place] [phone] Mariluz Soler M.D. [address] [place] [phone] 06/07/2024 11:20 AM CDT Office Visit Department of Oncology in [place], [place] [address] [place] [phone] Mariluz Soler M.D. [address] [place] [phone] 06/07/2024 1:00 PM CDT Infusion Department of Oncology in [place], [place] [address] [place] [phone] Mariluz Soler M.D. [address] [place] [phone] 06/17/2024 8:30 AM CDT Appointment Department of Laboratory Medicine and Pathology, [facility] in [place], [place] [address] [place] [phone] Anny Mcneill M.D. [address] [place] [phone] 06/17/2024 9:00 AM CDT Lab Department of Infusion Therapy in [place], [place] [address] [place] [phone] Anny Mcneill M.D. [address] [place] [phone] 06/17/2024 10:45 AM CDT Procedure visit Department of Urology in [place], [place] [address] [place] [phone] Anny Mcneill M.D. [address] [place] [phone] 06/17/2024 1:45 PM CDT Comprehensive Visit Department of Urology in [place], [place] [address] [place] [phone] Ayesha Romero P.A.-C. [address] [place] [phone] 06/17/2024 4:15 PM CDT Comprehensive Visit Department of Urology in [place], [place] [address] [place] [phone] Scotty Tom APRN, CSolitarioN.P. 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 Author Eat a balanced, healthy diet Diet Worsening( 11:49 AM CDT) Yes [place], Nadia Boone R.N. Note: 02/14/20 - Has one regular meal daily (supper), otherwise not as hungry and snacks on fruit in AM, chips in evening. Will readdress his dietary goals and see if this makes a difference in his mood. Read Managing My Depression General Improving( 11:43 AM CDT) Yes [place], Nadia Boone R.N. Note: P. 46-48 Create a relapse prevention plan. Spend time with my dog again. General On track( 11:43 AM CDT) Yes [place], Nadia Boone R.N. Have some time to himself regularly. General On track( 11:47 AM CDT) Yes [place], Nadia Boone R.N. Note: 4/7/20 - More structure to his day. Thankful for this time to rehabilitation worker. Recognizing he needs more personal time. Meet with therapist regularly General On track( 11:43 AM CDT) Yes [place], Nadia Boone R.N. Note: Dr. Pavan Sorensen, with [facility] in [place], [place]. Take your medication every day Lifestyle On track( 020 11:49 AM CDT) No [place], Nadia Boone R.N. Note: Increased Wellbutrin to 300 mg daily 02/09/20. PHQ-9 Total Score (max 27) < 5 Symptom Management 3(04/06/2024 7:51 PM CDT) No [place], Nadia Boone R.N. Note: Enrollment PHQ9=18 on 08/16/19 Patient goals at enrollment: 1. I'd like to have my depression be less intense. 2. I'd like to learn some coping strategies. 3. I'd like to learn how to keep my depression from flaring back again documented as of this encounter Results * Lipid Panel (05/23/2024 [...] Paula APRN.N.P., M.S. LA B BLOOD ADD-ON Performing Organization Address City[facility]/ZIP Co de Phone Number [facility] 200 [place] [address] * Bilirubin, Direct (05/23/2024 9:21 AM CDT) Bilirubin, Direct, S <0.2 0.0 - 0.3 mg/dL 05/23/2024 10:14 AM CDT DTL Blood (Blood, Venous) 05/23/2024 9:21 AM CDT 05/23/2024 9:53 AM CDT Tasia Paula APRN.N.P., M.S. LA B BLOOD ADD-ON Performing Organization Address City[facility]/ZIP Co de Phone Number [facility] [address] [place] [address] * (ABNORMAL) Comprehensive Metabolic Panel (05/23/2024 9:21 AM CDT) Potassium, S 4.4 3.6 - 5.2 mmol/L [...] APRN, C.N.P., M.S. LA B BLOOD ADD-ON [facility] [address] [place] [address], [facility] DTL [facility] [address] [place] [address] * (ABNORMAL) CBC with Differential, Blood (05/23/2024 [...] Bowser APRN, C.N.P., M.SSolitario GOODEN BLOOD ADD-ON [facility] [address] [place] [address], [facility] DTL [facility] [address] [place] [address] 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 [address] [place] [phone] PCP - General 03/04/24 Roger Sorensen Therapist 02/14/20 documented as of this encounter
--- OUTSIDE RECORDS SUMMARY | 2024-05-25 00:08 | XMS_ITS | Encounter Summary ---
Author Organization [facility] Address [address] [place] [address] Care Team Providers Care Flour Tester Name Role Phone Kayla Rowland APRN, C.N.P. 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 [address] [place] [phone] Rst Onc Rogo [address] [place] [phone] Referral ID Status Reason Start Date Expiration Date V isits Requested Visits Authorized [id number] Authorized 02/11/2024 10/18/2024 24 99 Encounter Details Date Type Department Care Team (Late st Contact Info) Description 04/26/2024 11:20 AM CDT Education Department of Oncology in [place], [place] [address] [place] [phone] Mariluz Soler M.D. [address] [place] [phone] Rena Mccray R.N., O.C.N. 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 - 04/26/2024 11:20 AM CDT Cancer Treatment Education Visit REASON FOR VISIT I met with Heriberto Snowden for cancer treatment education. ASSESSMENT/PLAN Patient education provided per the cancer treatment letter attached in encounters. Printed materials provided to patient per Education Tab. Answered questions. Patient verbalized understanding and voiced appreciation for education. We have reviewed scheduling and logistics of RIP pump along with concurrent FOLFIRI regimen. We will ensure he has antinausea medications for use at home. documented in this encounter Plan of Treatment Upcoming Encounters Date Type Department Care Team (Late st Contact Info) Description 06/01/2024 9:30 AM CDT Clinical Support Division of Colon and Rectal Surgery in [address] [phone] Armida Bullock, JAD, C.N.P., M.S.N. [address] [place] [phone] 06/07/2024 9:20 AM CDT Lab Department of Infusion Therapy in [place], [place] [address] [place] [phone] Mariluz Soler M.D. [address] [place] [phone] 06/07/2024 11:20 AM CDT Office Visit Department of Oncology in [place], [place] [address] [place] [phone] Mariluz Soler M.D. [address] [place] [phone] 06/07/2024 1:00 PM CDT Infusion Department of Oncology in [place], [place] [address] [place] [phone] Mariluz Soler M.D. [address] [place] [phone] 06/17/2024 8:30 AM CDT Appointment Department of Laboratory Medicine and Pathology, [facility], in [place], [place] [address] [place] [phone] Anny Mcneill M.D. [address] [place] [phone] 06/17/2024 9:00 AM CDT Lab Department of Infusion Therapy in [place], [place] [address] [place] [phone] Anny Mcneill M.D. [address] [place] [phone] 06/17/2024 10:45 AM CDT Procedure visit Department of Urology in [place], [place] [address] [place] [phone] Anny Mcneill M.D. [address] [place] [phone] 06/17/2024 1:45 PM CDT Comprehensive Visit Department of Urology in [place], [place] [address] [place] [phone] Ayesha Romero P.A.-C. [address] [place] [phone] 06/17/2024 4:15 PM CDT Comprehensive Visit Department of Urology in [place], [place] [address] [place] [phone] Scotty Tom, JAD, UrielN.P. [address] [place] [phone] documented as of this encounter Goals Goal Patient Goal Type Associated Problems Recent Progress Patient-Stated? Author Eat a balanced, healthy diet Diet Worsening( 11:49 AM CDT) Yes [place], Nadia Boone R.N. Note: 02/14/20 - Has [...] General On track( 11:47 AM CDT) Yes [place], Nadia Boone R.N. Note: 01/24/20 - More structure to his day. 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 Recognizing he needs more personal time. Meet with therapist regularly General On track( 11:43 AM CDT) Yes [place], Nadia Boone RBillie. Note: Dr. Pavan Sorensen, with [email or web address] in [place], [place]. Take your medication every day Lifestyle On track( 11:49 AM CDT) No Nadia Nickerson R.N. Note: Increased Wellbutrin to 300 mg daily 02/09/20. PHQ-9 Total Score (max 27) < 5 Symptom Management 3(04/06/2024 7:51 PM CDT) No [place], Nadia Boone R.N. Note: Enrollment PHQ9=18 on [...] documented in this encounter Additional Health Concerns Assessment Noted Time PHQ-9 Depression Total Score: 3 04/06/20 24 7:51 PM CDT documented as of this encounter Care Teams Flour Tester Relationship Specialty Start Date End Date Kayla Rowland APRN, C.N.P. [address] [place] [phone] PCP - General 03/04/24 Roger Sorensen Therapist 02/14/20 documented as of this encounter
--- OUTSIDE RECORDS SUMMARY | 2024-05-25 00:08 | XMS_ITS | Encounter Summary ---
Author Organization [facility] Address [address] [place] [address] Care Team Providers Care Coal Shoveler Name Role Phone Kayla Rowland APRN, C.N.P. 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 [address] [place] [phone] Rst Onc Rogo [address] [place] [phone] Referral ID Status Reason Start Date Expiration Date V isits Requested Visits Authorized [id number] Authorized 02/11/2024 10/18/2024 24 99 Encounter Details Date Type Department Care Team (Late st Contact Info) Description 04/26/2024 1:45 PM CDT Infusion Department of Oncology in [place], [place] [address] [place] [phone] Mariluz Soler M.D. 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 [address] [place] [phone] 06/07/2024 9:20 AM CDT Lab Department of Infusion Therapy in [place], [place] [address] [place] [phone] Mariluz Soler M.D. [address] [place] [phone] 06/07/2024 11:20 AM CDT Office Visit Department of Oncology in [place], [place] [address] [place] [phone] Mariluz Soler M.D. [address] [place] [phone] 06/07/2024 1:00 PM CDT Infusion Department of Oncology in [place], [place] [address] [place] [phone] Mariluz Soelr M.D. [address] [place] [phone] 06/17/2024 8:30 AM CDT Appointment Department of Laboratory Medicine and Pathology, [facility], in [place], [place] [address] [place] [phone] Anny Mcneill M.D. [address] [place] [phone] 06/17/2024 9:00 AM CDT Lab Department of Infusion Therapy in [place], [place] [address] [place] [phone] Anny Mcneill M.D. [address] [place] [phone] 06/17/2024 10:45 AM CDT Procedure visit Department of Urology in [place], [place] [address] [place] [phone] Anny Mcneill M.D. [address] [place] [phone] 06/17/2024 1:45 PM CDT Comprehensive Visit Department of Urology in [place], [place] [address] [place] [phone] Ayesha Romero, P.A.-C. [address] [place] [phone] 06/17/2024 4:15 PM CDT Comprehensive Visit Department of Urology in [place], [place] [address] [place] [phone] Scotty Tom, JAD, C.N.P. [address] [place] [phone] documented as of this encounter Goals Goal Patient Goal Type Associated Problems Recent Progress Patient-Stated? Author Eat a balanced, healthy diet Diet Worsening( 11:49 AM CDT) Yes [place], Nadia Boone R.N. Note: 02/14/20 - Has one regular meal daily (supper), otherwise not as hungry and snacks on fruit in AM, chips in evening. Will readdress his dietary goals and see if this makes a difference in his mood. Read Managing My Depression General Improving( 11:43 AM CDT) Yes [place], Nadia Boone R.N. Note: P. 46-48 Create a relapse prevention plan. Spend time with my dog again. General On track( 11:43 AM CDT) Yes Nadia Nickerson R.N. Have some time to himself regularly. General On track( 11:47 AM CDT) Yes Nadia Nickerson R.N. Note: 01/24/20 - More structure to his day. 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 Recognizing he needs more personal time. Meet with therapist regularly General On track( 11:43 AM CDT) Yes Nadia Nickerson R.N. Note: Dr. Pavan Sorensen, with [employer] in [place], [place]. Take your medication every day Lifestyle [...] MAR Action Action Date Dose Rate Site floxuridine 100 mg, dexAMETHasone 25 mg, heparin (porcine) 30,000 Units in NaCl 0.9% bacteriostatic 30 mL injection 100 mg (rounded from 104 mg), intra-arterial, at 0.09 mL/hr, Administer over 336 Hours, over 336 hours, First dose on Thu04/26/24 at 1400, Continuous Infusion over 336 hours. Dose reflects TOTAL CALCULATED DOSE to be administered via continuous infusion over the specified length of treatment. Given 04/26/2024 2:41 PM CDT 100 mg 0.09 mL/hr documented in this encounter Additional Health Concerns Assessment Noted Time PHQ-9 Depression Total Score: 3 04/06/20 24 7:51 PM CDT documented as of this encounter Care Teams Coal Shoveler Relationship Specialty Start Date End Date Kayla Rowland APRN, C.N.P. [address] [place] [phone] PCP - General 03/04/24 Roger Sorensen Therapist 02/14/20 documented as of this encounter
--- OUTSIDE RECORDS SUMMARY | 2024-05-25 00:08 | XMS_ITS | Encounter Summary ---
Author Organization [facility] Address [address] [place] [phone] Care Team Providers Care Carton Filler Name Role Phone Kayla Rowland APRN, C.N.P. Primary Care Provide r Reason for Referral * Outpatient (Routine) - Closed Specialty Diagnoses / Procedures Referred By Keya t Referred To Contact Diagnoses Ileostomy Status (HCC) Procedures Stomal Therapy Tej Quintanilla M.B., Rich, M.P.H. [address] [place] [phone] [facility] Referral ID Status Reason Start Date Expiration Date Visits Re quested Visits Authorized [id number] Closed 04/20/2024 04/20/2025 1 1 Encounter Details Date Type Department Care Team (Late st Contact Info) Description 04/20/2024 Orders Only Division of Colon and Rectal Surgery in [place], [place] [address] [place] [phone] Ayesha Sepulveda, R.N. Ileostomy Status (HCC) (Primary Dx) Social History Tobacco Use Types Packs/Day Years Used Date Smoking Tobacco: Former Cigarettes 1 - 08/18/2015 Smokeless Tobacco: Never Alcohol Use Standard Drinks/Week Comments Not Currently 0 (1 standard drink = 0.6 oz pur e alcohol) [facility] Utilities Answer Date Recorded In the past 12 months has [employer] gas, oil, or water [employer] threatened to shut off services in your [...] often do you attend chur ch or congregation services? Never 12/06/2021 Do you belong to [...] Answer Date Recorded PHQ-2 Score 0 04/06/2024 [facility] [place] of Occupat ional Health - Occupational Stress [...] your living situation today? I have a [facility] place to live 05/05/2024 Education Answer Date Recorded What is the highest level of school you have completed or the highest degree you have received? 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 [address] [place] [phone] 06/07/2024 9:20 AM CDT Lab Department of Infusion Therapy in [place], [place] [address] [place] [phone] Mariluz Soler M.D. [address] [place] [phone] 06/07/2024 11:20 AM CDT Office Visit Department of Oncology in [place], [place] [address] [place] [phone] Mariluz Soler M.D. [address] [place] [phone] 06/07/2024 1:00 PM CDT Infusion Department of Oncology in [place], [place] [address] [place] [phone] Mariluz Soler M.D. [address] [place] [phone] 06/17/2024 8:30 AM CDT Appointment Department of Laboratory Medicine and Pathology, [facility], in [place], [place] [address] [place] [phone] Anny Mcneill M.D. [address] [place] [phone] 06/17/2024 9:00 AM CDT Lab Department of Infusion Therapy in [place], [place] [address] [place] [phone] Anny Mcneill M.D. [address] [place] [phone] 06/17/2024 10:45 AM CDT Procedure visit Department of Urology in [place], [place] [address] [place] [phone] Anny Mcneill M.D. [address] [place] [phone] 06/17/2024 1:45 PM CDT Comprehensive Visit Department of Urology in [place], [place] [address] [place] [phone] Ayesha Romero P.A.-C. [address] [place] [phone] 06/17/2024 4:15 PM CDT Comprehensive Visit Department of Urology in [place], [place] [address] [place] [phone] Scotty Tom APRN, CSolitarioN.P. [address] [place] [phone] documented as of this encounter Goals Goal Patient Goal Type Associated Problems Recent Progress Patient-Stated? Author Eat a balanced, healthy diet Diet Worsening( 11:49 AM CDT) Yes [place], Nadia Boone R.N. Note: 02/14/20 - Has one regular meal daily (supper), otherwise not as hungry and snacks on fruit in AM, chips in evening. Will readdress his dietary goals and see if this makes a difference in his mood. Read Managing My Depression General Improving( 11:43 AM CDT) Yes [place] R.N. Note: P. 46-48 Create a relapse prevention plan. Spend time with my dog again. General On track( 020 11:43 AM CDT) Yes [place] R.N. Have some time to himself regularly. General On track( 11:47 AM CDT) Yes [place] R.N. Note: 01/24/20 - More structure to his day. 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 Recognizing he needs more personal time. Meet with therapist regularly General On track( 11:43 AM CDT) Yes [place], Nadia Boone R.N. Note: Dr. Pavan Sorensen, with [facility] in [place], [place]. Take your medication every day Lifestyle On track( 11:49 AM CDT) No Nadia Nickerson R.N. Note: Increased Wellbutrin to 300 mg daily 02/09/20. PHQ-9 Total Score (max 27) < 5 Symptom Management 3(04/06/2024 7:51 PM CDT) No [place], Nadia Boone R.N. Note: Enrollment PHQ9=18 on 08/16/19 Patient goals at enrollment: 1. I'd like to have my depression be less intense. 2. I'd like to learn some coping strategies. 3. I'd like to learn how to keep my depression from flaring back again documented as of this encounter Visit Diagnoses Diagnosis Ileostomy Status (HCC)- Primary documented in this encounter Additional Health Concerns Infection Onset Date Last Indicated Resolved Time Protective Environment 04/26/2024 04/26/2024 Assessment Noted Time PHQ-9 Depression Total Score: 3 04/06/20 24 7:51 PM CDT documented as of this encounter Care Teams Carton Filler Relationship Specialty Start Date End Date Kayla Rowland APRN, C.N.P. [address] [place] [phone] PCP - General 03/04/24 Roger Sorensen Therapist 02/14/20 documented as of this encounter
--- OUTSIDE RECORDS SUMMARY | 2024-05-25 00:08 | XMS_ITS | Encounter Summary ---
Author Organization [facility] Address [address] [place] [address] Care Team Providers Care Supervisor [place] Name Role Phone Kayla Rowland APRN, C.N.P. 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 [address] [place] [phone] [facility] [address] [place] [phone] Referral ID Status Reason Start Date Expiration Date V isits Requested Visits Authorized [id number] Authorized 02/11/2024 10/18/2024 24 99 Encounter Details Date Type Department Care Team (Late st Contact Info) Description 04/26/2024 8:40 AM CDT Lab Department of Infusion Therapy in [place], [place] [address] [place] [phone] Mariluz Soler M.D. 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 [address] [place] [phone] 06/07/2024 9:20 AM CDT Lab Department of Infusion Therapy in [place], [place] [address] [place] [phone] Mariluz Soler M.D. [address] [place] [phone] 06/07/2024 11:20 AM CDT Office Visit Department of Oncology in [address] [phone] Mariluz Soler M.D. [address] [place] [phone] 06/07/2024 1:00 PM CDT Infusion Department of Oncology in [place], [place] [address] [place] [phone] Mariluz Soler M.D. [address] [place] [phone] 06/17/2024 8:30 AM CDT Appointment Department of Laboratory Medicine and Pathology, [facility], in [place], [place] [address] [place] [phone] Anny Mcneill M.D. [address] [place] [phone] 06/17/2024 9:00 AM CDT Lab Department of Infusion Therapy in [place], [place] [address] [place] [phone] Anny Mcneill M.D. [address] [place] [phone] 06/17/2024 10:45 AM CDT Procedure visit Department of Urology in [place], [place] [address] [place] [phone] Anny Mcneill M.D. [address] [place] [phone] 06/17/2024 1:45 PM CDT Comprehensive Visit Department of Urology in [place], [place] [address] [place] [phone] Ayesha Romero, PSolitarioA.-C. [address] [place] [phone] 06/17/2024 4:15 PM CDT Comprehensive Visit Department of Urology in [place], [place] [address] [place] [phone] Scotty Tom, JAD, C.N.P. [address] [place] [phone] documented as of this encounter Goals Goal Patient Goal Type Associated Problems Recent Progress Patient-Stated? Author Eat a balanced, healthy diet Diet Worsening( 11:49 AM CDT) Yes [employer], Nadia Boone R.N. Note: 02/14/20 - Has one regular meal daily (supper), otherwise not as hungry and snacks on fruit in AM, chips in evening. Will readdress his dietary goals and see if this makes a difference in his mood. Read Managing My Depression General Improving( 11:43 AM CDT) Yes [employer], Nadia Boone R.N. Note: P. 46-48 Create a relapse prevention plan. Spend time with my dog again. General On track( 11:43 AM CDT) Yes Nadia Nickerson R.N. Have some time to himself regularly. General On track( 11:47 AM CDT) Yes [employer], Nadia Boone R.N. Note: 01/24/20 - More structure to his day. 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 Recognizing he needs more personal time. Meet with therapist regularly General On track( 11:43 AM CDT) Yes [employer], Nadia Boone R.N. Note: Dr. Pavan Sorensen, with [facility] in [place], [place]. Take your medication every day Lifestyle On track( 11:49 AM CDT) No [employer], Nadia Boone R.N. 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 [address], [facility] [place] [address] * (ABNORMAL) Comprehensive Metabolic Panel (04/26/2024 9:16 AM CDT) Pathologist [facility] Potassium, S 4.2 3.6 - 5.2 mmol/L 04/26/2024 11:04 AM CDT DTL Sodium, S 139 135 - 145 mmol/L 04/26/2024 11:04 AM CDT DTL Chloride, S 106 98 - 107 mmol/L 04/26/2024 11:04 AM CDT DTL Bicarbonate, S 24 22 - 29 mmol/L 04/26/2024 11:04 AM CDT DTL Anion Gap 9 7 - 15 04/26/2024 11:04 AM CDT DTL BUN (Blood Urea Nitrogen), S 29(H) 8 - 24 mg/dL 04/26/2024 11:04 AM CDT DTL Creatinine 0.92 0.74 - 1.35 mg/dL 04/26/2024 11:04 AM CDT DTL Estimated GFR (eGFR) >90 >=60 mL/min/BS A 04/26/2024 11:04 AM CDT DTL Comment: Estimated GFR calculated using the 2020 CKD_EPI creatinine equation. Calcium, Total, S 9.2 8.6 - 10.0 mg/dL 04/26/2024 11:04 AM CDT DTL Glucose, S 115 70 - 140 mg/dL 04/26/2024 11:04 AM CDT DTL Protein, Total, S 6.3 6.3 - 7.9 g/dL 04/26/2024 11:04 AM CDT DTL Albumin, S 4.2 3.5 - 5.0 g/dL 04/26/2024 11:04 AM CDT DTL Aspartate Aminotransferase (AST), S 16 8 - 48 U/L 04/26/2024 11:04 AM CDT DTL Alkaline Phosphatase, S 132(H) 40 - 129 U/L 04/26/2024 11:04 AM CDT DTL Alanine Aminotransferase (ALT), S 32 7 - 55 U/L 04/26/2024 11:04 AM CDT DTL Bilirubin, Total, S <0.2 0.0 - 1.2 mg/dL 04/26/2024 11:04 AM CDT DTL Blood (Blood, Venous) 04/26/2024 9:16 AM CDT 04/26/2024 10:42 AM CDT Mariluz Soler M.D. LAB BLOOD ADD-ON [address] [address], [facility] [place] [address] [place] [address] * CBC with Differential, Blood (04/26/2024 9:16 AM CDT) Hemoglobin 13.5 13.2 - 16.6 g/dL 04/26/2024 10:08 AM CDT DTL Hematocrit 41.2 38.3 - 48.6 % 04/26/2024 10:08 AM CDT DTL Erythrocytes 4.60 4.35 - 5.65 x10(12)/L 04/26/2024 10:08 AM CDT DTL MCV 89.6 78.2 - 97.9 fL 04/26/2024 10:08 AM CDT DTL RBC Distrib Width 13.0 11.8 - 14.5 % 04/26/2024 10:08 AM CDT DTL Platelet Count 264 135 - 317 x10(9)/L 04/26/2024 10:08 AM CDT DTL Leukocytes 6.7 3.4 - 9.6 x10(9)/L 04/26/2024 10:08 AM CDT DTL Neutrophils 5.05 1.56 - 6.45 x10(9)/L 04/26/2024 10:08 AM CDT DHPM Lymphocytes 1.02 0.95 - 3.07 x10(9)/L 04/26/2024 10:08 AM CDT DTL Monocytes 0.45 0.26 - 0.81 x10(9)/L 04/26/2024 10:08 AM CDT DTL Eosinophils 0.13 0.03 - 0.48 x10(9)/L 04/26/2024 10:08 AM CDT DTL Basophils 0.06 0.01 - 0.08 x10(9)/L 04/26/2024 10:08 AM CDT DTL Blood (Blood, Venous) 04/26/2024 9:16 AM CDT 04/26/2024 10:08 AM CDT Mariluz Soler M.D. 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 5 mL (500 units) of Heparin 100 units/mL to each port/lumen. When IVAD not accessed or infusing: When no infusion to maintain patency flush every 28 days following NaCL flush. 5 mL (500 units) of Heparin 100 units/mL to each port/lumen. Given 04/26/2024 9:17 AM CDT 500 Units sodium chloride 0.9 % injection 20-40 mL 20-40 mL, intra-catheter, As needed, line care, Starting on Thu04/26/24 at 0905, When IVAD accessed and infusing: Flush prior to blood sampling, post blood transfusion or post blood sampling. 20 mL to each port/lumen. Given 04/26/2024 9:17 AM CDT 40 mL documented in this encounter Additional Health Concerns Assessment Noted Time PHQ-9 Depression Total Score: 3 04/06/20 24 7:51 PM CDT documented as of this encounter Care Teams Supervisor [employer] Relationship Specialty Start Date End Date Kayla Rowland APRN, C.N.P. [address] [place] [phone] PCP - General 03/04/24 Roger Sorensen Therapist 02/14/20 documented as of this encounter
--- OUTSIDE RECORDS SUMMARY | 2024-05-25 00:08 | XMS_ITS | Encounter Summary ---
Author Organization [facility] Address [address] [place] [address] Care Team Providers Care Battalion Chief Name Role Phone Kayla Rowland APRN, C.N.P. 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 [address] [place] [phone] Rst Onc Rogo [address] [place] [phone] Referral ID Status Reason Start Date Expiration Date V isits Requested Visits Authorized [id number] Authorized 02/11/2024 10/18/2024 24 [id number] Encounter Details Date Type Department Care Team (Late st Contact Info) Description 04/26/2024 10:40 AM CDT Office Visit Department of Oncology in [place], [place] [address] [place] [phone] Patsy Bowser APRN, C.N.P., M.S. 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 Gender Identity Male 08/15/2019 2:16 PM CDT Sexual Orientation Straight 08/15/2019 2: 16 PM CDT documented as of this encounter Last Filed Vital Signs Vital Sign Reading Time Taken Comments Blood Pressure 144/85 04/26/2024 11:10 AM CDT Pulse 85 04/26/2024 11:10 AM CDT Temperature 36.5 ??C (97.7 ??F) 04/26/2024 11:10 AM C DT Respiratory Rate 15 04/26/2024 11:10 AM CDT Oxygen Saturation 99% 04/26/2024 11:10 AM CDT Inhaled Oxygen Concentration - - Weight 99 kg (218 lb 4.1 oz) 04/26/2024 11:10 AM CDT Height - - Body Mass Index 33.19 03/29/2024 6:22 AM CDT documented in this encounter Progress Notes * Patsy Bowser APRN, C.N.P., M.S. - 04/26/2024 10:40 AM CDT SUBJECTIVE PRIMARY CARE PHYSICIAN Kayla Rowland APRN, C.N.P. REQUESTING PROVIDER Mariluz Soler M.D. [address] [place] [phone] LOCAL ONCOLOGIST No care recruiting team lead to display PRIMARY [place] ONCOLOGIST Marin Corral M.D., Ph.D. CHIEF COMPLAINT/REASON FOR CONSULT Heriberto Snowden is a 43 y.o. male who presents for evaluation of metastatic rectal cancer HISTORY OF PRESENT ILLNESS Mr. Snowden is a 43 y.o. male with the following oncologic history: Oncology History Overview Note Diagnosis: Colon adenocarcinoma, descending- rectosigmoid Current stage and therapy: Stage at diagnosis: IV (month/year 09/01/23) CEA at diagnosis: Pending Molecular characteristics: pMMR [id number]: KRAS G12D, TP53 T155I, APC mut, bTMB [...] Colon, sigmoid, mass at 18 cm, biopsy ([id number]; 09/01/2023): Invasive moderately differentiated adenocarcinoma arising in [...] colonic origin. Immunohistochemical stains were performed at [facility] (block A1). KRT7 is negative while [...] including genes related to colorectal cancer through [facility]. 11/19/2023 Other After 4 cycles FOLFOXIRI [...] (cGy) First Treatment Last Treatment Elapsed Days [id number] 500 1500 2500 03/23/2024 03/25/2024 2 Course [...] / dexAMETHasone / Heparin Start Date: 04/26/2024 (Planned) Malignant Neoplasm Of Rectum (HCC) 03/23/2024 - 03/25/2024 Radiation Therapy Radiation Treatment Progress Summary Treatment Course: 1xRectum Plan ID Fractions Dose / Fraction (cGy) Dose Treated (cGy) Dose Planned (cGy) First Treatment Last Treatment Elapsed Days [id number] 500 1500 2500 03/23/2024 03/25/2024 2 Course [...] / dexAMETHasone / Heparin Start Date: 04/26/2024 (Planned) INTERVAL HISTORY: Mr. Snowden presents for reevaluation. Since last seen, Mr. Snowden has undergone resection of his primary as well as his liver metastasis. He generally is doing well although he does indicate the 1st few weeks in particular after surgery were very difficult. He had quite a bit of pain and was using prescription pain medications but now he is down to leave on occasion. His energy level is continuing to improve. His ostomy is working well with no issues he did have skin irritation but he has been working with a wound nurse which is helping him deal with this and it is improving. He is eating well maintaining his weight without nausea vomiting. He did have a fever about 2 weeks after his surgery but this resolved. He was also having night sweats this is also resolved. No chest pain, shortness of breath peripheral edema. He does indicate that he is struggling accepting his situation and dealing with feeling isolated and is looking to see if there is any other resource he can access to discuss the situation with somebody who has been through similar circumstance and has the RIP pump. [facility] have resources in place including a strong social support and a psychologist, and does not endorse any suicidal ideation. REVIEW OF SYSTEMS Pertinent items are noted in HPI; all other review of systems was negative. OBJECTIVE VITAL SIGNS There were no vitals filed for this visit. PHYSICAL EXAMINATION General: Well appearing 43 y.o. who is in no apparent distress. Appears to be at ECOG performance status 0 Skin: Non-jaundiced. No rashes. Eyes: No scleral icterus. Neuro: Alert and oriented x 3. Calm, interactive and appropriate. No focal neuro deficit. Reports: Labs and imaging have been reviewed. DIAGNOSTICS I reviewed the pertinent laboratory and diagnostic data. ASSESSMENT / PLAN #1 Metastatic rectal cancer I have reviewed all above in depth with Mr. Snowden and his partner. Since last seen he is undergone HAIP placement as well as low anterior resection and liver wedge resection. Overall, he is doing well and is ready to move forward. Today our recommendations are as follows: Initiate FUDR in RIP pump today Return in 2 weeks with initiation of FOLFIRI and heparin saline in RIP pump Repeat imaging and [facility] testing in 2 months We spent a significant time talking about the psychological aspect of his disease which has been difficult considering his young age. He asked me to try to see if he would be able to make contact with another patient with an RIP pump which I will ascertain whether or not this is allowed an appropriate and if so will try to have the patient's contact one another. I did refer him to online resources as well as our [facility]. He is overall comfortable with this plan and very motivated to continue on with therapy. PATIENT EDUCATION Ready to learn, no apparent learning barriers were identified; learning preferences include listening. Explained diagnosis and treatment plan; patient expressed understanding of the content. ADMINISTRATIVE BILLING Total time spent in counseling 90 mins. documented in this encounter Plan of Treatment Upcoming Encounters Date Type Department Care Team (Late st Contact Info) Description 06/01/2024 9:30 AM CDT Clinical Support Division of Colon and Rectal Surgery in [address] [phone] Armida Bullock APRN, C.N.P., M.S.N. [address] [place] [phone] 06/07/2024 9:20 AM CDT Lab Department of Infusion Therapy in [address] [phone] Mariluz Soler M.D. [address] [place] [phone] 06/07/2024 11:20 AM CDT Office Visit Department of Oncology in [address] [phone] Mariluz Soler M.D. [address] [place] [phone] 06/07/2024 1:00 PM CDT Infusion Department of Oncology in [address] [phone] Mariluz Soler M.D. [address] [place] [phone] 06/17/2024 8:30 AM CDT Appointment Department of Laboratory Medicine and Pathology, [facility] in [place], [place] [address] [place] [phone] Anny Mcneill M.D. [address] [place] [phone] 06/17/2024 9:00 AM CDT Lab Department of Infusion Therapy in [place], [place] [address] [place] [phone] Anny Mcneill M.D. [address] [place] [phone] 06/17/2024 10:45 AM CDT Procedure visit Department of Urology in [place], [place] [address] [place] [phone] Anny Mcneill M.D. [address] [place] [phone] 06/17/2024 1:45 PM CDT Comprehensive Visit Department of Urology in [place], [place] [address] [place] [phone] Ayesha Romero, P.A.-C. [address] [place] [phone] 06/17/2024 4:15 PM CDT Comprehensive Visit Department of Urology in [place], [place] [address] [place] [phone] Scotty Tom APRN, C.N.P. [address] [place] [phone] documented as of this encounter Goals Goal Patient Goal Type Associated Problems Recent Progress Patient-Stated? Author Eat a balanced, healthy diet Diet Worsening( 11:49 AM CDT) Yes [place] R.N. Note: 02/14/20 - Has one regular meal daily (supper), otherwise not as hungry and snacks on fruit in AM, chips in evening. Will readdress his dietary goals and see if this makes a difference in his mood. Read Managing My Depression General Improving( 11:43 AM CDT) Yes [place], Nadia Boone R.N. Note: P. 46-48 Create a relapse prevention plan. Spend time with my dog again. General On track( 11:43 AM CDT) Yes Nadia Nickerson R.N. Have some time to himself regularly. General On track( 11:47 AM CDT) Yes [place], Nadia Boone R.N. Note: 01/24/20 - More structure to his day. Thankful for this time to music worker. Recognizing he needs more personal time. Meet with therapist regularly General On track( 11:43 AM CDT) Yes [place], Nadia Boone R.N. Note: Dr. Pavan Sorensen, with [facility] in [place], [place]. Take your medication every day Lifestyle On track( 11:49 AM CDT) No [place], Michael McgheeN. Note: Increased Wellbutrin to 300 [...] documented as of this encounter Care Teams Battalion Chief Relationship Specialty Start Date End Date Kayla Rowland APRN, C.N.P. [address] [place] [phone] PCP - General 03/04/24 Roger Sorensen Therapist 02/14/20 documented as of this encounter
--- OUTSIDE RECORDS SUMMARY | 2024-05-25 00:08 | XMS_ITS | Encounter Summary ---
Author Organization [facility] Address [address] [place] [address] Care Team Providers Care Slackline Operator Name Role Phone Kayla Rowland APRN, C.N.P. Primary Care Provide r Encounter Details Date Type Department Care Team (Late st Contact Info) Description 04/26/2024 Orders Only Department of Oncology in [place], [place] [address] [place] [phone] Rena Mccray R.N., O.C.N. 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 [address] [place] [phone] 06/07/2024 9:20 AM CDT Lab Department of Infusion Therapy in [place], [place] [address] [place] [phone] Mariluz Soler M.D. [address] [place] [phone] 06/07/2024 11:20 AM CDT Office Visit Department of Oncology in [place], [place] [address] [place] [phone] Mariluz Soler M.D. [address] [place] [phone] 06/07/2024 1:00 PM CDT Infusion Department of Oncology in [place], [place] [address] [place] [phone] Mariluz Soler M.D. [address] [place] [phone] 06/17/2024 8:30 AM CDT Appointment Department of Laboratory Medicine and Pathology, [facility] in [place], [place] [address] [place] [phone] Anny Mcneill M.D. [address] [place] [phone] 06/17/2024 9:00 AM CDT Lab Department of Infusion Therapy in [place], [place] [address] [place] [phone] Anny Mcneill M.D. [address] [place] [phone] 06/17/2024 10:45 AM CDT Procedure visit Department of Urology in [place], [place] [address] [place] [phone] Anny Mcneill M.D. [address] [place] [phone] 06/17/2024 1:45 PM CDT Comprehensive Visit Department of Urology in [place], [place] [address] [place] [phone] Ayesha Romero P.A.-C. [address] [place] [phone] 06/17/2024 4:15 PM CDT Comprehensive Visit Department of Urology in [place], [place] [address] [place] [phone] Scotty Tom APRN, UrielNSolitarioP. [address] [place] [phone] documented as of this encounter Goals Goal Patient Goal Type Associated Problems Recent Progress Patient-Stated? Author Eat a balanced, healthy diet Diet Worsening( 11:49 AM CDT) Yes [place], Nadia Boone R.N. Note: 02/14/20 - Has one regular meal daily (supper), otherwise not as hungry and snacks on fruit in AM, chips in evening. Will readdress his dietary goals and see if this makes a difference in his mood. Read Managing My Depression General Improving( 11:43 AM CDT) Yes [place], Nadia Boone R.N. Note: P. 46-48 Create a relapse prevention plan. Spend time with my dog again. General On track( 11:43 AM CDT) Yes [place], Michael McgheeN. Have some time to himself regularly. General On track( 11:47 AM CDT) Yes [place], Tammy Mcghee.N. Note: 01/24/20 - More structure to his day. Thankful for this time to template worker. Recognizing he needs more personal time. Meet with therapist regularly General On track( 11:43 AM CDT) Yes [place], Nadia Boone R.N. Note: Dr. Pavan Sorensen, with [employer] [facility] in [place], [place]. Take your medication every day Lifestyle On track( 020 11:49 AM CDT) No Krishan, Nadia Boone [...] documented as of this encounter Care Teams Slackline Operator Relationship Specialty Start Date End Date Kayla Rowland APRN, C.N.P. [address] [place] [phone] PCP - General 03/04/24 Roger Sorensen Therapist 02/14/20 documented as of this encounter
--- OUTSIDE RECORDS SUMMARY | 2024-05-25 00:09 | XMS_ITS | Encounter Summary ---
Author Organization [facility] Address [address] [place] [address] Care Team Providers Care Rodent Exterminator Name Role Phone Kayla Rowland APRN, C.N.P. Primary Care Provide r Encounter Details Date Type Department Care Team (Late st Contact Info) Description 04/13/2024 Orders Only Department of Oncology in [place], [place] [address] [place] [phone] Rena Mccray R.N., O.C.N. [address] [place] [phone] Malignant Neoplasm Of Rectum (HCC) (Primary Dx) Social History Tobacco Use Types Packs/Day Years Used Date Smoking Tobacco: Former Cigarettes 1 - 08/18/2015 Smokeless Tobacco: Never Alcohol Use Standard Drinks/Week Comments Not Currently 0 (1 standard drink = 0.6 oz pur e alcohol) [facility] Utilities Answer Date Recorded In the past 12 months has [facility] [employer], gas, oil, or water [employer] threatened to shut off services in your [...] often do you attend chur ch or yazidism services? 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 [address] [place] [phone] 06/07/2024 9:20 AM CDT Lab Department of Infusion Therapy in [place], [place] [address] [place] [phone] Mariluz Soler M.D. [address] [place] [phone] 06/07/2024 11:20 AM CDT Office Visit Department of Oncology in [place], [place] [address] [place] [phone] Mariluz Soler M.D. [address] [place] [phone] 06/07/2024 1:00 PM CDT Infusion Department of Oncology in [place], [place] [address] [place] [phone] Mariluz Soler M.D. [address] [place] [phone] 06/17/2024 8:30 AM CDT Appointment Department of Laboratory Medicine and Pathology, [facility] in [place], [place] [address] [place] [phone] Anny Mcneill M.D. [address] [place] [phone] 06/17/2024 9:00 AM CDT Lab Department of Infusion Therapy in [place], [place] [address] [place] [phone] Anny Mcneill M.D. [address] [place] [phone] 06/17/2024 10:45 AM CDT Procedure visit Department of Urology in [place], [place] [address] [place] [phone] Anny Mcneill M.D. [address] [place] [phone] 06/17/2024 1:45 PM CDT Comprehensive Visit Department of Urology in [place], [place] [address] [place] [phone] Ayesha Romero P.A.-C. [address] [place] [phone] 06/17/2024 4:15 PM CDT Comprehensive Visit Department of Urology in [place], [place] [address] [place] [phone] Scotty Tom APRN, CSolitarioNSolitarioP. [address] [place] [phone] Scheduled Orders Name Type Priority Associated Diagnoses Orde r Schedule [id number] [facility] - Miscellaneous Test Lab Routine Malignant Neoplasm Of Rectum (HCC) Expected: 04/26/2024, Expires: 07/14/2025 documented as of this encounter Goals Goal Patient Goal Type Associated Problems Recent Progress Patient-Stated? Author Eat a balanced, healthy diet Diet Worsening( 11:49 AM CDT) Yes [place], Nadia Boone R.N. Note: 02/14/20 - Has one regular meal daily (supper), otherwise not as hungry and snacks on fruit in AM, chips in evening. Will readdress his dietary goals and see if this makes a difference in his mood. Read Managing My Depression General Improving( 11:43 AM CDT) Yes [place]ia R.N. Note: P. 46-48 Create a relapse prevention plan. Spend time with my dog again. General On track( 11:43 AM CDT) Yes Nadia Nickerson R.N. Have some time to himself regularly. General On track( 11:47 AM CDT) Yes [place] R.N. Note: 01/24/20 - More structure to his day. Thankful for this time to grove worker. Recognizing he needs more personal time. Meet with therapist regularly General On track( 11:43 AM CDT) Yes Nadia Nickerson R.N. Note: Dr. Pavan Sorensen, with [employer] in [place], [place]. Take your medication every day Lifestyle [...] Diagnosis Malignant Neoplasm Of Rectum (HCC)- Primary documented in this encounter Additional Health Concerns Assessment Noted Time PHQ-9 Depression Total Score: 3 04/06/20 24 7:51 PM CDT documented as of this encounter Care Teams Rodent Exterminator Relationship Specialty Start Date End Date Kayla Rowland APRN, C.N.P. [address] [place] [phone] PCP - General 03/04/24 Roger Sorensen Therapist 02/14/20 documented as of this encounter
--- OUTSIDE RECORDS SUMMARY | 2024-05-25 00:09 | XMS_ITS | Encounter Summary ---
Author Organization [facility] Address [address] [place] [address] Care Team Providers Care Handbag Framer Name Role Phone Kayla Rowland APRN, C.N.P. Primary Care Provide r Encounter Details Date Type Department Care Team (Latest Contact Info) Description 04/16/2024 Clinical Communication Division of Hepatobiliary and Pancreas Surgery in [place], [place] [address] [place] [address] Amari You M.D. [address] [place] [address] Social History Tobacco Use Types Packs/Day Years Used Date Smoking Tobacco: Former Cigarettes 1 - 08/18/2015 Smokeless Tobacco: Never Alcohol Use Standard Drinks/Week Comments Not Currently 0 (1 standard drink = 0.6 oz pur e alcohol) [facility] Utilities Answer Date Recorded In the past 12 months has [facility] [employer], gas, oil, or water [employer] threatened to shut off services in your [...] often do you attend chur ch or congregational services? 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 - 04/16/2024 4:25 PM CDT BRIEF HPBS COMMUNICATION NOTE: Mr. Snowden called in this afternoon regarding ongoing lower abdominal soreness. Denies fevers, chills, nausea, vomiting, pump malfunction. He is unsure if he is feeling pain or just discomfort. Doesnot inhibit him from walking, using the bathroom, or going about daily life. Does sometimes keep him from sleeping soundly. Has been taking q6 Advil. Robaxin, oxycodone that he was discharged on ran out 5 days ago. Encouraged him to switch from Advil to 440mg naproxen q12. Additionally, I will send a short courserefill of Robaxin as this previously alveated his symptoms. Reminded him to not take Tylenol given liver history. Education on reasons to call team and/or seek local emergency evaluation including new intense abdominal pain, ongoing nausea/vomiting, fevers. Amari You MD General Surgery PGY2 [id number] documented in this encounter Plan of Treatment Upcoming Encounters Date Type Department Care Team (Late st Contact Info) Description 06/01/2024 9:30 AM CDT Clinical Support Division of Colon and Rectal Surgery in [address] [phone] Armida Bullock APRN, C.N.P., M.S.N. [address] [place] [phone] 06/07/2024 9:20 AM CDT Lab Department of Infusion Therapy in [address] [address] Mariluz Soler M.D. [address] [place] [phone] 06/07/2024 11:20 AM CDT Office Visit Department of Oncology in [address] [phone] Mariluz Soler M.D. [address] [place] [phone] 06/07/2024 1:00 PM CDT Infusion Department of Oncology in [address] [phone] Mariluz Soler M.D. [address] [place] [phone] 06/17/2024 8:30 AM CDT Appointment Department of Laboratory Medicine and Pathology, [facility], in [place], [place] [address] [place] [phone] Anny Mcneill M.D. [address] [place] [phone] 06/17/2024 9:00 AM CDT Lab Department of Infusion Therapy in [place], [place] [address] [place] [phone] Anny Mcneill M.D. [address] [place] [phone] 06/17/2024 10:45 AM CDT Procedure visit Department of Urology in [place], [place] [address] [place] [phone] Anny Mcneill M.D. [address] [place] [phone] 06/17/2024 1:45 PM CDT Comprehensive Visit Department of Urology in [place], [place] [address] [place] [phone] Ayesha Romero, P.A.-Tasia. [address] [place] [phone] 06/17/2024 4:15 PM CDT Comprehensive Visit Department of Urology in [place], [place] [address] [place] [phone] Scotty Tom APRN, C.N.P. [address] [place] [phone] documented as of this encounter Goals Goal Patient Goal Type Associated Problems Recent Progress Patient-Stated? Author Eat a balanced, healthy diet Diet Worsening( 11:49 AM CDT) Yes Matador, Nadia Boone R.N. Note: 02/14/20 - Has [...] his day. Thankful for this time to dialysis social worker. Recognizing he needs more personal time. Meet with therapist regularly General On track( 11:43 AM CDT) Yes MatadorNadia R.N. Note: Dr. Pavan Sorensen, with [facility] in [place], [place]. Take your medication every day Lifestyle [...] filedocumented in this encounter Additional Health Concerns Assessment Noted Time PHQ-9 Depression Total Score: 3 04/06/20 7:51 PM CDT documented as of this encounter Care Teams Handbag Framer Relationship Specialty Start Date End Date Kayla Rowland APRN, C.N.P. [address] [place] [phone] PCP - General 03/04/24 Roger Sorensen Therapist 02/14/20 documented as of this encounter
--- OUTSIDE RECORDS SUMMARY | 2024-05-25 00:09 | XMS_ITS | Encounter Summary ---
Author Organization [facility] Address [address] [place] [address] Care Team Providers Care Evaporator Name Role Phone Kayla Rowland APRN, C.N.P. Primary Care Provide r Reason for Visit * Reason Comments Med Refill Encounter Details Date Type Department Care Team (Late st Contact Info) Description 04/19/2024 Refill Department of Oncology in [place], [place] [address] [place] [phone] Rena Mccray, RBillie., O.C.N. [address] [place] [phone] Med Refill Social History Tobacco Use Types Packs/Day Years Used Date Smoking Tobacco: Former Cigarettes 1 - 08/18/2015 Smokeless Tobacco: Never Alcohol Use Standard Drinks/Week Comments Not Currently 0 (1 standard drink = 0.6 oz pur e alcohol) [facility] Utilities Answer Date Recorded In the past 12 months has [facility] [employer], gas, oil, or water [employer] threatened to shut off services in your [...] any clubs o r organizations such as restorationism groups, unions, fraternal or athletic groups, or [...] Date Recorded PHQ-2 Score 0 04/06/2024 [facility] of Occupat ional Health - Occupational [...] your living situation today? I have a [facility] place to live 05/12/2024 Education Answer Date Recorded What is the highest level of school you have completed or the highest degree you have received? 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 [address] [place] [phone] 06/07/2024 9:20 AM CDT Lab Department of Infusion Therapy in [place], [place] [address] [place] [phone] Mariluz Soler M.D. [address] [place] [phone] 06/07/2024 11:20 AM CDT Office Visit Department of Oncology in [place], [place] [address] [place] [phone] Mariluz Soler M.D. [address] [place] [phone] 06/07/2024 1:00 PM CDT Infusion Department of Oncology in [place], [place] [address] [place] [phone] Mariluz Soler M.D. [address] [place] [phone] 06/17/2024 8:30 AM CDT Appointment Department of Laboratory Medicine and Pathology, [facility] in [place], [place] [address] [place] [phone] Anny Mcneill M.D. [address] [place] [phone] 06/17/2024 9:00 AM CDT Lab Department of Infusion Therapy in [place], [place] [address] [place] [phone] Anny Mcneill M.D. [address] [place] [phone] 06/17/2024 10:45 AM CDT Procedure visit Department of Urology in [place], [place] [address] [place] [phone] Anny Mcneill M.D. [address] [place] [phone] 06/17/2024 1:45 PM CDT Comprehensive Visit Department of Urology in [place], [place] [address] [place] [phone] Ayesha Romero P.A.-C. [address] [place] [phone] 06/17/2024 4:15 PM CDT Comprehensive Visit Department of Urology in [place], [place] [address] [place] [phone] Scotty Tom APRN, UrielNSolitarioP. [address] [place] [phone] documented as of this encounter Goals Goal Patient Goal Type Associated Problems Recent Progress Patient-Stated? Author Eat a balanced, healthy diet Diet Worsening( 11:49 AM CDT) Yes [place], Nadia Boone R.N. Note: 02/14/20 - Has one regular meal daily (supper), otherwise not as hungry and snacks on fruit in AM, chips in evening. Will readdress his dietary goals and see if this makes a difference in his mood. Read Managing My Depression General Improving( 11:43 AM CDT) Yes [place], Nadia Boone R.N. Note: P. 46-48 Create a relapse prevention plan. Spend time with my dog again. General On track( 11:43 AM CDT) Yes [place], Michael McgheeN. Have some time to himself regularly. General On track( 11:47 AM CDT) Yes [place], Tammy Mcghee.N. Note: 01/24/20 - More structure to his day. 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 Recognizing he needs more personal time. Meet with therapist regularly General On track( 11:43 AM CDT) Yes [place], Nadia Boone R.N. Note: Dr. Pavan Sorensen, with [facility] in [place], [place]. Take your medication every day Lifestyle On track( 020 11:49 AM CDT) No Krishan, Nadia Boone, R.N. Note: Increased Wellbutrin to [...] documented as of this encounter Care Teams Evaporator Relationship Specialty Start Date End Date Kayla Rowland APRN, C.N.P. [address] [place] [phone] PCP - General 03/04/24 Roger Sorensen Therapist 02/14/20 documented as of this encounter
--- OUTSIDE RECORDS SUMMARY | 2024-05-25 00:09 | XMS_ITS | Encounter Summary ---
Author Organization [facility] Address [address] [place] [address] Care Team Providers Care Airframe And Power Plant Mechanic Name Role Phone Kayla Rowland APRN, C.N.P. Primary Care Provide r Encounter Details Date Type Department Care Team (Late st Contact Info) Description 04/12/2024 Clinical Communication Division of Hepatobiliary and Pancreas Surgery in [place], [place] [address] [place] [phone] Chris Viera D.O., M.B.A. [address] [place] [phone] Social History Tobacco Use Types Packs/Day Years Used Date Smoking Tobacco: Former Cigarettes 1 - 08/18/2015 Smokeless Tobacco: Never Alcohol Use Standard Drinks/Week Comments Not Currently 0 (1 standard drink = 0.6 oz pur e alcohol) [facility] Utilities Answer Date Recorded In the past 12 months has [facility] [employer] gas, oil, or water [employer] threatened to shut off services in your [...] often do you attend chur ch or pentecostalism services? Never 12/06/2021 Do you belong to any clubs o r organizations such as catholic groups, unions, fraternal or athletic groups, or [...] Score 0 04/06/2024 [facility] Answer [...] your living situation today? I have a [facility] place to live 05/12/2024 Education Answer Date Recorded What is the highest level of school you have completed or the highest degree you have received? 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 [address] [place] [phone] 06/07/2024 9:20 AM CDT Lab Department of Infusion Therapy in [place], [place] [address] [place] [phone] Mariluz Soler M.D. [address] [place] [phone] 06/07/2024 11:20 AM CDT Office Visit Department of Oncology in [place], [place] [address] [place] [phone] Mariluz Soler M.D. [address] [place] [phone] 06/07/2024 1:00 PM CDT Infusion Department of Oncology in [place], [place] [address] [place] [phone] Mariluz Soler M.D. [address] [place] [phone] 06/17/2024 8:30 AM CDT Appointment Department of Laboratory Medicine and Pathology, [facility] in [place], [place] [address] [place] [phone] Anny Mcneill M.D. [address] [place] [phone] 06/17/2024 9:00 AM CDT Lab Department of Infusion Therapy in [place], [place] [address] [place] [phone] Anny Mcneill M.D. [address] [place] [phone] 06/17/2024 10:45 AM CDT Procedure visit Department of Urology in [place], [place] [address] [place] [phone] Anny Mcneill M.D. [address] [place] [phone] 06/17/2024 1:45 PM CDT Comprehensive Visit Department of Urology in [place], [place] [address] [place] [phone] Ayesha Romero P.A.-C. [address] [place] [phone] 06/17/2024 4:15 PM CDT Comprehensive Visit Department of Urology in [place], [place] [address] [place] [phone] Scotty Tom APRN, C.N.P. [address] [place] [phone] documented as of this encounter Goals Goal Patient Goal Type Associated Problems Recent Progress Patient-Stated? Author Eat a balanced, healthy diet Diet Worsening( 11:49 AM CDT) Yes Scissors, Nadia Boone R.N. Note: 02/14/20 - Has one regular meal daily (supper), otherwise not as hungry and snacks on fruit in AM, chips in evening. Will readdress his dietary goals and see if this makes a difference in his mood. Read Managing My Depression General Improving( 11:43 AM CDT) Yes Scissors, Tammy Mcghee.Curtis. Note: P. 46-48 Create a relapse prevention plan. Spend time with my dog again. General On track( 11:43 AM CDT) Yes Scissors, Michael McgheeN. Have some time to himself regularly. General On track( 11:47 AM CDT) Yes Scissors, Tammy Mcghee.N. Note: 01/24/20 - More structure to his day. Thankful for this time to odd bundle worker. Recognizing he needs more personal time. Meet with therapist regularly General On track( 11:43 AM CDT) Yes Scissors, Nadia Boone R.N. Note: Dr. Pavan Sorensen, with [employer] in [place], [place]. Take your medication every day Lifestyle [...] documented as of this encounter Care Teams Airframe And Power Plant Mechanic Relationship Specialty Start Date End Date Kayla Rowland APRN, C.N.P. [address] [place] [phone] PCP - General 03/04/24 Roger Sorensen Therapist 02/14/20 documented as of this encounter
--- OUTSIDE RECORDS SUMMARY | 2024-05-25 00:09 | XMS_ITS | Encounter Summary ---
Author Organization [facility] Address [address] [place] [address] Care Team Providers Care Beater Tender Name Role Phone Kayla Rowland APRN, C.N.P. Primary Care Provide r Encounter Details Date Type Department Care Team (Late st Contact Info) Description 04/14/2024 Clinical Communication Department of Oncology in [place], [place] [address] [place] [phone] Mariluz Soler M.D. [address] [place] [phone] Social History Tobacco Use Types Packs/Day Years Used Date Smoking Tobacco: Former Cigarettes 1 - 08/18/2015 Smokeless Tobacco: Never Alcohol Use Standard Drinks/Week Comments Not Currently 0 (1 standard drink = 0.6 oz pur e alcohol) [facility] Utilities Answer Date Recorded In the past 12 months has [facility] [employer], gas, oil, or water [employer] threatened to shut off services in your [...] How often do you attend chur or mu-ism services? Never 12/06/2021 Do you belong to any clubs o r organizations such as uatsdin groups, unions, fraternal or athletic groups, or [...] Answer Date Recorded PHQ-2 Score 0 04/06/2024 [facility] of Occupat ional Health - Occupational [...] your living situation today? I have a [facility] place to live 05/12/2024 Education Answer Date Recorded What is the highest level of school you have completed or the highest degree you have received? 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 [address] [place] [phone] 06/07/2024 9:20 AM CDT Lab Department of Infusion Therapy in [place], [place] [address] [place] [phone] Mariluz Soler M.D. [address] [place] [phone] 06/07/2024 11:20 AM CDT Office Visit Department of Oncology in [place], [place] [address] [place] [phone] Mariluz Soler M.D. [address] [place] [phone] 06/07/2024 1:00 PM CDT Infusion Department of Oncology in [place], [place] [address] [place] [phone] Mariluz Soler M.D. [address] [place] [phone] 06/17/2024 8:30 AM CDT Appointment Department of Laboratory Medicine and Pathology, [facility] in [place], [place] [address] [place] [phone] Anny Mcneill M.D. [address] [place] [phone] 06/17/2024 9:00 AM CDT Lab Department of Infusion Therapy in [place], [place] [address] [place] [phone] Anny Mcneill M.D. [address] [place] [phone] 06/17/2024 10:45 AM CDT Procedure visit Department of Urology in [place], [place] [address] [place] [phone] Anny Mcneill M.D. [address] [place] [phone] 06/17/2024 1:45 PM CDT Comprehensive Visit Department of Urology in [place], [place] [address] [place] [phone] Ayesha Romero P.A.-C. [address] [place] [phone] 06/17/2024 4:15 PM CDT Comprehensive Visit Department of Urology in [place], [place] [address] [place] [phone] Scotty Tom APRN, UrielNSolitarioP. [address] [place] [phone] documented as of this encounter Goals Goal Patient Goal Type Associated Problems Recent Progress Patient-Stated? Author Eat a balanced, healthy diet Diet Worsening( 11:49 AM CDT) Yes [place], Nadia Boone R.N. Note: 02/14/20 - Has one regular meal daily (supper), otherwise not as hungry and snacks on fruit in AM, chips in evening. Will readdress his dietary goals and see if this makes a difference in his mood. Read Managing My Depression General Improving( 11:43 AM CDT) Yes [place], Tammy Mcghee.Curtis. Note: P. 46-48 Create a relapse prevention plan. Spend time with my dog again. General On track( 11:43 AM CDT) Yes MountainsideNadia RSolitarioN. Have some time to himself regularly. General On track( 11:47 AM CDT) Yes [place], aTmmy Mcghee.N. Note: 01/24/20 - More structure to his day. Thankful for this time to white work cleaner. Recognizing he needs more personal time. Meet with therapist regularly General On track( 11:43 AM CDT) Yes [place], Nadia Boone R.N. Note: Dr. Pavan Sorensen, with [facility] in [place], [place]. Take your medication every day Lifestyle [...] documented as of this encounter Care Teams Beater Tender Relationship Specialty Start Date End Date Kayla Rowland APRN, C.N.P. [address] [place] [phone] PCP - General 03/04/24 Roger Sorensen Therapist 02/14/20 documented as of this encounter
--- OUTSIDE RECORDS SUMMARY | 2024-05-25 00:09 | XMS_ITS | Encounter Summary ---
Author Organization [facility] Address [address] [place] [address] Care Team Providers Care Corporate Director Of Human Resources Name Role Phone Kayla Rowland APRN, C.N.P. Primary Care Provide r Encounter Details Date Type Department Care Team (Latest Contact Info) Description 04/13/2024 Clinical Communication Division of Hepatobiliary and Pancreas Surgery in [place], [place] [address] [place] [address] Wilfredo Cast M.D. [address] [place] [address] Social History Tobacco Use Types Packs/Day Years Used Date Smoking Tobacco: Former Cigarettes 1 - 08/18/2015 Smokeless Tobacco: Never Alcohol Use Standard Drinks/Week Comments Not Currently 0 (1 standard drink = 0.6 oz pur e alcohol) [facility] Utilities Answer Date Recorded In the past 12 months has [facility] [employer], gas, oil, or water [employer] threatened to shut off services in your [...] any clubs o r organizations such as temple groups, unions, fraternal or athletic groups, or [...] Answer Date Recorded PHQ-2 Score 0 04/06/2024 [facility] - Occupational [...] Master's degree (e.g., MA, MS, Aba, MEd, MAIL FORWARDING SYSTEM MARKUP CLERK, GAMALIEL) 08/15/2019 Sex and Gender Information Value Date Recorded Sex Assigned at Male 09/09/2023 12:48 PM CLASS A LINEMAN Gender Identity Male 08/15/2019 2:16 PM CDT Sexual Orientation Straight 08/15/2019 2: 16 PM CDT documented as of this encounter Miscellaneous Notes * Telephone Encounter - Gómez Romeo APRN, C.N.P., M.S.N. - 04/13/2024 11:34 AM CDT I spoke with the patient and his fiance this morning to follow up. He is feeling better this morning and has been able to eat and drink. It sounded like his clinic appointment yesterday they had a difficult time accessing the pump and had some discomfort from that manipulation. He is taking 400mg of ibuprofen every 4-6 hours latest temp this morning while on the phone was 98.8. He did tell me that he weaned of his oxycodone two days ago and he had been taking 8 tabs of oxy per day. We discussedthat if his symptoms did not improve or are getting worse he would need evaluation in the ED with full labs and CT scan. He was in agreement. * Telephone Encounter - Wilfredo Cast M.D. - 04/13/2024 12:57 AM CDT HAIP placement, multiple wedges, cholecystectomy, LAR, ileostomy on 03/29. I received a call from the fiance of Mr. Snowden around midnight this evening. Patient has been having an uneventful recoveryand doing well. Over the last couple of days the patient has been having some body aches and havingmore fatigue. He was recorded to have a temperature of 100 and 100.3 this evening. Has not had any nausea, vomiting, no new abdominal pain, no redness or drainage from incisions- all look good. Was seen at [facility] today for heparin/saline infusion into pump and stoma teaching. No concerns by any providers during their visit. Having bowel function just some pressure when sitting down. Tolerating a diet. He has been i/o cathing however has been improving and has been voiding on his own. No cloudiness or smell to urine. She said it almost seems like he has the flu. He is due for another doseof ibuprofen at the time of calling. Patient has not been taking tylenol due to the hepatic artery infusion pump. Since the patient has not had a true fever yet and does not have any other concerningfeatures at this time its okay to observe for right now. I told them they can give the ibuprofen that he has due and hopefully will help his temperature. I told them if his temperature gets consistently above 100.4 and continues to rise, he continues to feel worse, or he has any additional symptoms to arise to give me another call. I said i will have someone from Dr. Viera team call early in themorning to see how the remainder of the night went and discuss with Dr. Viera. Patient and fiance were in understanding of the plan and told to not hesitate to call back if any other concerns or he continues to worsen documented in this encounter Plan of Treatment Upcoming Encounters Date Type Department Care Team (Late st Contact Info) Description 06/01/2024 9:30 AM CDT Clinical Support Division of Colon and Rectal Surgery in [place], [place] [address] [place] [phone] Armida Bullock APRN, C.N.P., M.S.N. [address] [place] [phone] 06/07/2024 9:20 AM CDT Lab Department of Infusion Therapy in [place], [place] [address] [place] [phone] Mariluz Soler M.D. [address] [place] [phone] 06/07/2024 11:20 AM CDT Office Visit Department of Oncology in [place], [place] [address] [place] [phone] Mariluz Soler M.D. [address] [place] [phone] 06/07/2024 1:00 PM CDT Infusion Department of Oncology in [place], [place] [address] [place] [phone] Mariluz Soler M.D. [address] [place] [phone] 06/17/2024 8:30 AM CDT Appointment Department of Laboratory Medicine and Pathology, [facility], in [place], [place] [address] [place] [phone] Anny Mcneill M.D. [address] [place] [phone] 06/17/2024 9:00 AM CDT Lab Department of Infusion Therapy in [place], [place] [address] [place] [phone] Anny Mcneill M.D. [address] [place] [phone] 06/17/2024 10:45 AM CDT Procedure visit Department of Urology in [place], [place] [address] [place] [phone] Anny Mcneill M.D. [address] [place] [phone] 06/17/2024 1:45 PM CDT Comprehensive Visit Department of Urology in [place], [place] [address] [place] [phone] Ayesha Romero P.A.-C. [address] [place] [phone] 06/17/2024 4:15 PM CDT Comprehensive Visit Department of Urology in [place], [place] [address] [place] [phone] Scotty Tom, JAD, C.N.P. [address] [place] [phone] documented as of this encounter Goals Goal Patient Goal Type Associated Problems Recent Progress Patient-Stated? Author Eat a balanced, healthy diet Diet Worsening( 11:49 AM CDT) Yes Yancey, Nadia Boone R.N. Note: 02/14/20 - Has one regular meal daily (supper), otherwise not as hungry and snacks on fruit in AM, chips in evening. Will readdress his dietary goals and see if this makes a difference in his mood. Read Managing My Depression General Improving( 11:43 AM CDT) Yes Yancey, Nadia Boone R.N. Note: P. 46-48 Create a relapse prevention plan. Spend time with my dog again. General On track( 11:43 AM CDT) Yes Krishan, Nadia Boone R.N. Have some time to himself regularly. General On track( 11:47 AM CDT) Yes Yancey, Nadia Boone R.N. Note: 01/24/20 - More structure to his day. 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 Recognizing he needs more personal time. Meet with therapist regularly General On track( 11:43 AM CDT) Yes Yancey, Nadia Boone R.N. Note: Dr. Pavan Sorensen, with [facility] in [place], [place]. Take your medication every day Lifestyle On track( 11:49 AM CDT) No Yancey, Nadia Boone R.N. Note: Increased Wellbutrin to 300 mg daily 02/09/20. PHQ-9 Total Score (max 27) < 5 Symptom Management 3(04/06/2024 7:51 PM CDT) No Yancey, Nadia Boone RSolitarioN. Note: Enrollment PHQ9=18 on [...] documented as of this encounter Care Teams Corporate Director Of Human Resources Relationship Specialty Start Date End Date Kayla Rowland APRN, C.N.P. [address] [place] [address] PCP - General 03/04/24 Roger Sorensen Therapist 02/14/20 documented as of this encounter
--- OUTSIDE RECORDS SUMMARY | 2024-05-25 00:09 | XMS_ITS | Encounter Summary ---
Author Organization [facility] Address [address] [place] [address] Care Team Providers Care It Desktop Support Technician Name Role Phone Kayla Rowland APRN, C.N.P. 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 [address] [place] [phone] [facility] Referral ID Status Reason Start Date Expiration Date Visits Re quested Visits Authorized [id number] Closed 04/03/2024 04/03/2025 1 1 Encounter Details Date Type Department Care Team (Latest Contact Info) Description 04/12/2024 3:00 PM CDT Clinical Support Division of Colon and Rectal Surgery in [place], [place] [address] [place] [phone] Genesis Suresh, P.A.-C. 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) Social History Tobacco Use Types Packs/Day Years Used Date Smoking Tobacco: Former Cigarettes 1 - 08/18/2015 Smokeless Tobacco: Never Alcohol Use Standard Drinks/Week Comments Not Currently 0 (1 standard drink = 0.6 oz pur e alcohol) [facility] Utilities Answer Date Recorded In the past [...] any clubs o r organizations such as faith groups, unions, fraternal or athletic groups, or [...] PHQ-2 Score 0 04/06/2024 [facility] - Occupational Stress Questionnaire Answer Date [...] Master's degree (e.g., CHANDLER, MS, Aba, MEd, PULVERIZER MILL OPERATOR, GAMALIEL) 08/15/2019 Sex and Gender Information Value Date Recorded Sex Assigned at Male 09/09/2023 12:48 PM QUARTZ MINER Gender Identity Male 08/15/2019 2:16 PM CDT Sexual Orientation Straight 08/15/2019 2: 16 PM CDT documented as of this encounter Progress Notes * Favian Lopez M.S.N., R.N., SHAYY - 04/12/2024 3:00 PM CDT SUBJECTIVE CHIEF COMPLAINT/REASON FOR VISIT Assessment of peristomal skin and pouching system management. HISTORY OF PRESENT ILLNESS Heriberto Snowden is a 43 y.o. male seen for an evaluation of pouching system management. Theystate the pouching system is usually changed every 3 or 4 days. OBJECTIVE Physical Exam Ostomy (NEW) Ileostomy RLQ (Active) Site Assessment Budded;Red Stoma Size 1-1/4 Skin Assessment Denuded Circumferecially denuded 0.2 cm Skin Care Stoma powder;Water The denuded skin was treated with stoma powder per Skin Care Instructions [id number]. Pouching System (Stomal Appliance) Status Changed Changed by Wound enrobing machine operator Pouching System Removed [place] [id number] Undermining Circumferecially after 4 days of wear. Pouching System Applied [place] [id number] Will use precut to fit the size of stoma and retraction. Ongoing management Patient/caregiver Output Description Stool Stoma active during change. ASSESSMENT / PLAN Patient was in agreement with this plan. Questions answered. The patient was given updated orderinginformation. Their prescription is current. Encouraged to call or return (per Return Appointment Protocol [id number]) for ostomy related questions or concerns. Patient verbalized understanding. Patient was given 4 sets of new system and ordering numbers. Patient had just ordered from [employer] and will return the flat wafers for the convex. documented in this encounter Plan of Treatment Upcoming Encounters Date Type Department Care Team (Late st Contact Info) Description 06/01/2024 9:30 AM CDT Clinical Support Division of Colon and Rectal Surgery in [place], [place] [address] [place] [phone] Armida Bullock APRN, C.N.P., M.S.N. [address] [place] [phone] 06/07/2024 9:20 AM CDT Lab Department of Infusion Therapy in [place], [place] [address] [place] [phone] Mariluz Soler M.D. [address] [place] [phone] 06/07/2024 11:20 AM CDT Office Visit Department of Oncology in [place], [place] [address] [place] [phone] Mariluz Soler M.D. [address] [place] [phone] 06/07/2024 1:00 PM CDT Infusion Department of Oncology in [place], [place] [address] [place] [phone] Mariluz Soler M.D. [address] [place] [phone] 06/17/2024 8:30 AM CDT Appointment Department of Laboratory Medicine and Pathology, [facility], in [place], [place] [address] [place] [phone] Anny Mcneill M.D. [address] [place] [phone] 06/17/2024 9:00 AM CDT Lab Department of Infusion Therapy in [place], [place] [address] [place] [phone] Anny Mcneill M.D. [address] [place] [phone] 06/17/2024 10:45 AM CDT Procedure visit Department of Urology in [place], [place] [address] [place] [phone] Anny Mcneill M.D. [address] [place] [phone] 06/17/2024 1:45 PM CDT Comprehensive Visit Department of Urology in [place], [place] [address] [place] [phone] Ayesha Romero P.A.-C. [address] [place] [phone] 06/17/2024 4:15 PM CDT Comprehensive Visit Department of Urology in [place], [place] [address] [place] [phone] Scotty Tom APRN, CSolitarioNSolitarioP. [address] [place] [phone] documented as of this encounter Goals Goal Patient Goal Type Associated Problems Recent Progress Patient-Stated? Author Eat a balanced, healthy diet Diet Worsening( 11:49 AM CDT) Yes [place], Nadia Boone R.N. Note: 02/14/20 - Has one regular meal daily (supper), otherwise not as hungry and snacks on fruit in AM, chips in evening. Will readdress his dietary goals and see if this makes a difference in his mood. Read Managing My Depression General Improving( 11:43 AM CDT) Yes [place], Nadia Boone R.N. Note: P. 46-48 Create a relapse prevention plan. Spend time with my dog again. General On track( 11:43 AM CDT) Yes Nadia Nickerson R.N. Have some time to himself regularly. General On track( 11:47 AM CDT) Yes [place], Nadia Boone R.N. Note: 01/24/20 - More structure to his day. 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 Recognizing he needs more personal time. Meet with therapist regularly General On track( 020 11:43 AM CDT) Yes Krishan, Nadia Boone R.N. Note: Dr. Pavan Sorensen, with [facility] in [place], [place]. 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 [address] [place] [phone] PCP - General 03/04/24 Roger Sorensen Therapist 02/14/20 documented as of this encounter
--- OUTSIDE RECORDS SUMMARY | 2024-05-25 00:09 | XMS_ITS | Encounter Summary ---
Author Organization [facility] Address [address] [place] [address] Care Team Providers Care Wellness Instructor Name Role Phone Kayla Rowland APRN, C.N.P. Primary Care Provide r Encounter Details Date Type Department Care Team (Late st Contact Info) Description 04/14/2024 Orders Only Department of Oncology in [place], [place] [address] [place] [phone] Mariluz Soler M.D. 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) (Primary Dx); Secondary Malignant Neoplasm Liver (HCC) Social History Tobacco Use Types Packs/Day Years Used Date Smoking Tobacco: Former Cigarettes 1 - 08/18/2015 Smokeless Tobacco: Never Alcohol Use Standard Drinks/Week Comments Not Currently 0 (1 standard drink = 0.6 oz pur e alcohol) [facility] Utilities Answer Date Recorded In the past 12 months has [employer] gas, oil, or water [employer] threatened to shut off services in your [...] any clubs o r organizations such as shinto groups, unions, fraternal or athletic groups, or [...] Answer Date Recorded PHQ-2 Score 0 04/06/2024 [facility] - Occupational Stress Questionnaire Answer Date [...] Master's degree (e.g., MA, MS, Aba, MEd, AUTOMATIC LINE SET UP MECHANIC, GAMALIEL) 08/15/2019 Sex and Gender Information Value Date Recorded Sex Assigned at Male 09/09/2023 12:48 PM RETORT PRE COOKER Gender Identity Male 08/15/2019 2:16 PM CDT Sexual Orientation Straight 08/15/2019 2: 16 PM CDT documented as of this encounter Plan of Treatment Upcoming Encounters Date Type Department Care Team (Late st Contact Info) Description 06/01/2024 9:30 AM CDT Clinical Support Division of Colon and Rectal Surgery in [place], [place] [address] [place] [phone] Armida Bullock APRN, C.N.P., M.S.N. [address] [place] [phone] 06/07/2024 9:20 AM CDT Lab Department of Infusion Therapy in [place], [place] [address] [place] [phone] Mariluz Soler M.D. [address] [place] [phone] 06/07/2024 11:20 AM CDT Office Visit Department of Oncology in [place], [place] [address] [place] [phone] Mariluz Soler M.D. [address] [place] [phone] 06/07/2024 1:00 PM CDT Infusion Department of Oncology in [place], [place] [address] [place] [phone] Mariluz Soler M.D. [address] [place] [phone] 06/17/2024 8:30 AM CDT Appointment Department of Laboratory Medicine and Pathology, [facility] in [place], [place] [address] [place] [phone] Anny Mcneill M.D. [address] [place] [phone] 06/17/2024 9:00 AM CDT Lab Department of Infusion Therapy in [place], [place] [address] [place] [phone] Anny Mcneill M.D. [address] [place] [phone] 06/17/2024 10:45 AM CDT Procedure visit Department of Urology in [place], [place] [address] [place] [phone] Anny Mcneill M.D. [address] [place] [phone] 06/17/2024 1:45 PM CDT Comprehensive Visit Department of Urology in [place], [place] [address] [place] [phone] Ayesha Romero, Leroy-C. [address] [place] [phone] 06/17/2024 4:15 PM CDT Comprehensive Visit Department of Urology in [place], [place] [address] [place] [phone] Scotty Tom APRN, CSolitarioNSolitarioP. 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 Author Eat a balanced, healthy diet Diet Worsening( 11:49 AM CDT) Yes [place], Nadia Boone R.N. Note: 02/14/20 - Has one regular meal daily (supper), otherwise not as hungry and snacks on fruit in AM, chips in evening. Will readdress his dietary goals and see if this makes a difference in his mood. Read Managing My Depression General Improving( 11:43 AM CDT) Yes [place], Nadia Boone R.N. Note: P. 46-48 Create a relapse prevention plan. Spend time with my dog again. General On track( 11:43 AM CDT) Yes [place] R.N. Have some time to himself regularly. General On track( 11:47 AM CDT) Yes [place], Nadia Boone R.N. Note: 01/24/20 - More structure to his day. 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 Recognizing he needs more personal time. Meet with therapist regularly General On track( 020 11:43 AM CDT) Yes Krishan, Nadia Boone R.N. Note: Dr. Pavan Sorensen, with [facility] in [place], [place]. Take your medication every day Lifestyle [...] Neoplasm Of Colon Rectosigmoid Junction (HCC)- Primary Secondary Malignant Neoplasm Liver (HCC) documented in this encounter Additional Health Concerns Assessment Noted Time PHQ-9 Depression Total Score: 3 04/06/20 24 7:51 PM CDT documented as of this encounter Care Teams Wellness Instructor Relationship Specialty Start Date End Date Kayla Rowland APRN, C.N.P. [address] [place] [phone] PCP - General 03/04/24 Roger Sorensen Therapist 02/14/20 documented as of this encounter
--- OUTSIDE RECORDS SUMMARY | 2024-05-25 00:10 | XMS_ITS | Encounter Summary ---
Author Organization [facility] Address [address] [place] [address] Care Team Providers Care Commercial Fishing Vessel Operator Name Role Phone Kayla Rowland APRN, C.N.P. 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 [address] [place] [phone] Rst Onc Rogo [address] [place] [phone] Referral ID Status Reason Start Date Expiration Date V isits Requested Visits Authorized [id number] Authorized 02/11/2024 10/18/2024 24 99 Encounter Details Date Type Department Care Team (Late st Contact Info) Description 04/12/2024 1:00 PM CDT Infusion Department of Oncology in [place], [place] [address] [place] [phone] Mariluz Soler M.D. 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 Never 12/06/2021 Do you belong to any clubs o r organizations such as nondenominational groups, unions, fraternal or athletic groups, or [...] Answer Date Recorded PHQ-2 Score 0 04/06/2024 [facility] of Occupat ional Health - [...] Master's degree (e.g., MA, MS, Aba, MEd, ADMINISTRATIVE SUPPORT CLERK, GAMALIEL) 08/15/2019 Sex and Gender Information Value Date Recorded Sex Assigned at Male 09/09/2023 12:48 PM CAPABILITY LEAD Gender Identity Male 08/15/2019 2:16 PM CDT Sexual Orientation Straight 08/15/2019 2: 16 PM CDT documented as of this encounter Last Filed Vital Signs Vital Sign Reading Time Taken Comments Blood Pressure 130/77 04/12/2024 1:25 PM CDT Pulse 87 04/12/2024 1:25 PM CDT Temperature 36.9 ??C (98.4 ??F) 04/12/2024 1:25 PM CD T Respiratory Rate - - Oxygen Saturation - - Inhaled Oxygen Concentration - - Weight 101 kg (222 lb 3.6 oz) 04/12/2024 1:25 PM CDT Height - - Body Mass Index 33.79 03/29/2024 6:22 AM CDT documented in this encounter Plan of Treatment Upcoming Encounters Date Type Department Care Team (Late st Contact Info) Description 06/01/2024 9:30 AM CDT Clinical Support Division of Colon and Rectal Surgery in [address] [phone] Armida Bullock APRN, C.N.P., M.S.N. [address] [place] [phone] 06/07/2024 9:20 AM CDT Lab Department of Infusion Therapy in [place], [place] [address] [place] [phone] Mariluz Soler M.D. [address] [place] [phone] 06/07/2024 11:20 AM CDT Office Visit Department of Oncology in [place], [place] [address] [place] [phone] Mariluz Soler M.D. [address] [place] [phone] 06/07/2024 1:00 PM CDT Infusion Department of Oncology in [place], [place] [address] [place] [phone] Mariluz Soler M.D. [address] [place] [phone] 06/17/2024 8:30 AM CDT Appointment Department of Laboratory Medicine and Pathology, [facility] in [place], [place] [address] [place] [phone] Anny Mcneill M.D. [address] [place] [phone] 06/17/2024 9:00 AM CDT Lab Department of Infusion Therapy in [place], [place] [address] [place] [phone] Anny Mcneill M.D. [address] [place] [phone] 06/17/2024 10:45 AM CDT Procedure visit Department of Urology in [place], [place] [address] [place] [phone] Anny Mcneill M.D. [address] [place] [phone] 06/17/2024 1:45 PM CDT Comprehensive Visit Department of Urology in [place], [place] [address] [place] [phone] Ayesha Romero, P.A.-C. [address] [place] [phone] 06/17/2024 4:15 PM CDT Comprehensive Visit Department of Urology in [place], [place] [address] [place] [phone] Scotty Tom APRN, C.N.P. [address] [place] [phone] documented as of this encounter Goals Goal [...] General On track( 11:47 AM CDT) Yes [place], Nadia Boone R.N. Note: 01/24/20 - More structure to his day. Thankful for this time to workforce management consultant. Recognizing he needs more personal time. Meet with therapist regularly General On track( 11:43 AM CDT) Yes [place], Nadia Boone R.N. Note: Dr. Pavan Sorensen, with [facility] in [place], [place]. Take your medication every day Lifestyle On track( 11:49 AM CDT) No [place], Nadia Boone, R.N. Note: Increased Wellbutrin to [...] Hours, over 336 hours, First dose on Thu04/12/24 at 1345, Continuous Infusion over 336 hours. Dose reflects TOTAL CALCULATED DOSE to be administered via continuous infusion over the specified length of treatment. Given 04/12/2024 2:03 PM CDT 30,000 Units documented in this encounter Additional Health Concerns Assessment Noted Time PHQ-9 Depression Total Score: 3 04/06/20 7:51 PM CDT documented as of this encounter Care Teams Commercial Fishing Vessel Operator Relationship Specialty Start Date End Date Kayla Rowland APRN, C.N.P. [address] [place] [phone] PCP - General 03/04/24 Roger Sorensen Therapist 02/14/20 documented as of this encounter
--- OUTSIDE RECORDS SUMMARY | 2024-05-25 00:10 | XMS_ITS | Encounter Summary ---
Author Organization [facility] Address [address] [place] [address] Care Team Providers Care Railcar Carpenter Name Role Phone Kayla Rowland APRN, C.N.P. Primary Care Provide r Reason for Visit * Reason Onset Date Comments Refill of catheters 04/04/2024 Encounter Details Date Type Department Care Team (Latest Contact Info) Description 04/04/2024 Clinical Communication Division of Hepatobiliary and Pancreas Surgery in [place], [place] [address] [place] [phone] Chris Viera D.O., M.B.A. [address] [place] [phone] Refill of catheters Social History Tobacco Use Types Packs/Day Years Used Date Smoking Tobacco: Former Cigarettes 1 - 08/18/2015 Smokeless Tobacco: Never Alcohol Use Standard Drinks/Week Comments Not Currently 0 (1 standard drink = 0.6 oz pur e alcohol) [facility] Utilities Answer Date Recorded In the past 12 months has e [employer], gas, oil, or water [employer] threatened to shut off services in your [...] r organizations such as buddhism groups, unions, [facility] or athletic groups, or school groups? Yes [...] Answer Date Recorded PHQ-2 Score 0 04/06/2024 [facility] of Occupat ional Health - [...] your living situation today? I have a [facility] place to live 05/05/2024 Education Answer Date Recorded What is the highest level of school you have completed or the highest degree you have received? Master's degree (e.g., MA, MS, Aba, MEd, COOK MORNING, GAMALIEL) 08/15/2019 Sex and Gender Information Value Date Recorded Sex Assigned at Male 09/09/2023 12:48 PM STONECUTTER ASSISTANT Gender Identity Male 08/15/2019 2:16 PM CDT Sexual Orientation Straight 08/15/2019 2: 16 PM CDT documented as of this encounter Plan of Treatment Upcoming Encounters Date Type Department Care Team (Late st Contact Info) Description 06/01/2024 9:30 AM CDT Clinical Support Division of Colon and Rectal Surgery in [place], [place] 200 [place] [phone] Armida Bullock APRN, C.N.P., M.S.N. 200 [place] [phone] 06/07/2024 9:20 AM CDT Lab Department of Infusion Therapy in [place], [place] [address] [place] [phone] Mariluz Soler M.D. [address] [place] [phone] 06/07/2024 11:20 AM CDT Office Visit Department of Oncology in [place], [place] [address] [place] [phone] Mariluz Soler M.D. [address] [place] [phone] 06/07/2024 1:00 PM CDT Infusion Department of Oncology in [place], [place] [address] [place] [phone] Mariluz Soler M.D. [address] [place] [phone] 06/17/2024 8:30 AM CDT Appointment Department of Laboratory Medicine and Pathology, [facility], in [place], [place] [address] [place] [phone] Anny Mcneill M.D. [address] [place] [phone] 06/17/2024 9:00 AM CDT Lab Department of Infusion Therapy in [place], [place] [address] [place] [phone] Anny Mcneill M.D. [address] [place] [phone] 06/17/2024 10:45 AM CDT Procedure visit Department of Urology in [place], [place] [address] [place] [phone] Anny Mcneill M.D. [address] [place] [phone] 06/17/2024 1:45 PM CDT Comprehensive Visit Department of Urology in [place], [place] [address] [place] [phone] Ayesha Romero P.A.-C. [address] [place] [phone] 06/17/2024 4:15 PM CDT Comprehensive Visit Department of Urology in [place], [place] [address] [place] [phone] Scotty Tom APRN, C.N.P. [address] [place] [phone] documented as of this encounter Goals Goal Patient Goal Type Associated Problems Recent Progress Patient-Stated? Author Eat a balanced, healthy diet Diet Worsening( 11:49 AM CDT) Yes Babbie, Naida Boone R.N. Note: 02/14/20 - Has one regular meal daily (supper), otherwise not as hungry and snacks on fruit in AM, chips in evening. Will readdress his dietary goals and see if this makes a difference in his mood. Read Managing My Depression General Improving( 11:43 AM CDT) Yes BabbieNadia R.N. Note: P. 46-48 Create a relapse prevention plan. Spend time with my dog again. General On track( 11:43 AM CDT) Yes Nadia Nickerson R.N. Have some time to himself regularly. General On track( 11:47 AM CDT) Yes Nadia Nickerson R.N. Note: 01/24/20 - More structure to his day. Thankful for this time to older adult social work specialist. Recognizing he needs more personal time. Meet with therapist regularly General On track( 11:43 AM CDT) Yes BabbieNadia R.N. Note: Dr. Pavan Sorensen, with [facility] in [place], [place]. Take your medication every day [...] Assessment Noted Time PHQ-9 Depression Total Score: 5 11/25/19 24 9:48 AM STONECUTTER ASSISTANT documented as of this encounter Care Teams Railcar Carpenter Relationship Specialty Start Date End Date Kayla Rowland APRN, C.N.P. [address] [place] [phone] PCP - General 03/04/24 Roger Sorensen Therapist 02/14/20 documented as of this encounter
--- OUTSIDE RECORDS SUMMARY | 2024-05-25 00:10 | XMS_ITS | Encounter Summary ---
Author Organization [facility] Address [address] [place] [address] Care Team Providers Care Director Emergency Department Name Role Phone Kayla Rowland APRN, C.N.P. Primary Care Provide r Encounter Details Date Type Department Care Team (Late st Contact Info) Description 04/06/2024 Orders Only Division of Hepatobiliary and Pancreas Surgery in [place], [place] [address] [place] [phone] Susu Daniel APRN, C.N.P., D.N.P. [address] [place] [phone] Social History Tobacco Use Types Packs/Day Years Used Date Smoking Tobacco: Former Cigarettes 1 - 08/18/2015 Smokeless Tobacco: Never Alcohol Use Standard Drinks/Week Comments Not Currently 0 (1 standard drink = 0.6 oz pur e alcohol) [facility] Utilities Answer Date Recorded In the past 12 months has [employer], oil, or water [employer] threatened to shut off services in your [...] often do you attend chur ch or quaker services? Never 12/06/2021 Do you belong to [...] Answer Date Recorded PHQ-2 Score 0 04/06/2024 [facility] of Occupat ional Health - Occupational [...] Master's degree (e.g., MA, MS, Aba, MEd, MASTER RIGGER, GAMALIEL) 08/15/2019 Sex and Gender Information Value Date Recorded Sex Assigned at Male 09/09/2023 12:48 PM NUCLEAR PLANT CONSTRUCTION WORKER Gender Identity Male 08/15/2019 2:16 PM CDT Sexual Orientation Straight 08/15/2019 2: 16 PM CDT documented as of this encounter Plan of Treatment Upcoming Encounters Date Type Department Care Team (Late st Contact Info) Description 06/01/2024 9:30 AM CDT Clinical Support Division of Colon and Rectal Surgery in [place], [place] [address] [place] [phone] Armida Bullock APRN, C.N.P., M.S.N. [address] [place] [phone] 06/07/2024 9:20 AM CDT Lab Department of Infusion Therapy in [place], [place] [address] [place] [phone] Mariluz Soler M.D. [address] [place] [phone] 06/07/2024 11:20 AM CDT Office Visit Department of Oncology in [place], [place] [address] [place] [phone] Mariluz Soler M.D. [address] [place] [phone] 06/07/2024 1:00 PM CDT Infusion Department of Oncology in [place], [place] [address] [place] [phone] Mariluz Soler M.D. [address] [place] [phone] 06/17/2024 8:30 AM CDT Appointment Department of Laboratory Medicine and Pathology, [facility] in [place], [place] [address] [place] [phone] Anny Mcneill M.D. [address] [place] [phone] 06/17/2024 9:00 AM CDT Lab Department of Infusion Therapy in [place], [place] [address] [place] [phone] Anny Mcneill M.D. [address] [place] [phone] 06/17/2024 10:45 AM CDT Procedure visit Department of Urology in [place], [place] [address] [place] [phone] Anny Mcneill M.D. [address] [place] [phone] 06/17/2024 1:45 PM CDT Comprehensive Visit Department of Urology in [place], [place] [address] [place] [address] Ayesha Romero P.A.-C. [address] [place] [phone] 06/17/2024 4:15 PM CDT Comprehensive Visit Department of Urology in [place], [place] [address] [place] [phone] Scotty Tom APRN, C.N.P. [address] [place] [phone] documented as of this encounter Goals Goal Patient Goal Type Associated Problems Recent Progress Patient-Stated? Author Eat a balanced, healthy diet Diet Worsening( 11:49 AM CDT) Yes [place], Nadia Boone R.N. Note: 02/14/20 - Has one regular meal daily (supper), otherwise not as hungry and snacks on fruit in AM, chips in evening. Will readdress his dietary goals and see if this makes a difference in his mood. Read Managing My Depression General Improving( 11:43 AM CDT) Yes [place], Nadia Boone R.N. Note: P. 46-48 Create a relapse prevention plan. Spend time with my dog again. General On track( 11:43 AM CDT) Yes [place], Michael McgheeN. Have some time to himself regularly. General On track( 11:47 AM CDT) Yes [place], Tammy Mcghee.N. Note: 01/24/20 - More structure to his day. 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 Recognizing he needs more personal time. Meet with therapist regularly General On track( 11:43 AM CDT) Yes [place], Nadia Boone R.N. Note: Dr. Pavan Sorensen, with [facility] in [place], [place]. Take your medication every day Lifestyle [...] as of this encounter Care Teams Director Emergency Department Relationship Specialty Start Date End Date Kayla Rowland APRN, C.N.P. [address] [place] [phone] PCP - General 03/04/24 Roger Sorensen Therapist 02/14/20 documented as of this encounter
--- OUTSIDE RECORDS SUMMARY | 2024-05-25 00:10 | XMS_ITS | Encounter Summary ---
Author Organization [facility] Address [address] [place] [address] Care Team Providers Care Accounting Systems Manager Name Role Phone Kayla Rowland APRN, C.N.P. Primary Care Provide r Reason for Referral * Outpatient (Routine) - Closed Specialty Diagnoses / Procedures Referred By Keya olivares Referred To Contact Colon and Rectal Surgery Susu Almanza D.O. [address] [place] [phone] [facility] Referral ID Status Reason Start Date Expiration Date Visits Re quested Visits Authorized [id number] Closed 04/05/2024 10/05/2025 1 1 Encounter Details Date Type Department Care Team (Late st Contact Info) Description 04/04/2024 Clinical Communication Division of Colon and Rectal Surgery in [place], [place] [address] [place] [phone] Tej Quintanilla M.B., Ch.B., M.P.H. [address] [place] [phone] Social History Tobacco Use Types Packs/Day Years Used Date Smoking Tobacco: Former Cigarettes 1 - 08/18/2015 Smokeless Tobacco: Never Alcohol Use Standard Drinks/Week Comments Not Currently 0 (1 standard drink = 0.6 oz pur e alcohol) [facility] Utilities Answer Date Recorded In the past 12 months has [employer], [employer], or [employer] threatened to shut off services in your [...] often do you attend chur ch or latter-day services? Never 12/06/2021 Do you belong to any clubs o r organizations such as druze groups, unions, fraternal or athletic groups, or [...] 0 04/06/2024 [facility] of Occupat ional Health - Occupational Stress [...] Master's degree (e.g., MA, MS, Aba, MEd, CLINICAL ACCOUNT EXECUTIVE, GAMALIEL) 08/15/2019 Sex and Gender Information Value Date Recorded Sex Assigned at Male 09/09/2023 12:48 PM FROG OR OYSTER FARMWORKER Gender Identity Male 08/15/2019 2:16 PM CDT Sexual Orientation Straight 08/15/2019 2: 16 PM CDT documented as of this encounter Plan of Treatment Upcoming Encounters Date Type Department Care Team (Late st Contact Info) Description 06/01/2024 9:30 AM CDT Clinical Support Division of Colon and Rectal Surgery in [place], [place] [address] [place] [phone] Armida Bullock APRN, C.N.P., M.S.N. [address] [place] [phone] 06/07/2024 9:20 AM CDT Lab Department of Infusion Therapy in [place], [place] [address] [place] [phone] Mariluz Soler M.D. [address] [place] [phone] 06/07/2024 11:20 AM CDT Office Visit Department of Oncology in [place], [place] [address] [place] [phone] Mariluz Soler M.D. [address] [place] [phone] 06/07/2024 1:00 PM CDT Infusion Department of Oncology in [place], [place] [address] [place] [phone] Mariluz Soler M.D. [address] [place] [phone] 06/17/2024 8:30 AM CDT Appointment Department of Laboratory Medicine and Pathology, [facility], in [place], [place] [address] [place] [phone] Anny Mcneill M.D. [address] [place] [phone] 06/17/2024 9:00 AM CDT Lab Department of Infusion Therapy in [place], [place] [address] [place] [phone] Anny Mcneill M.D. [address] [place] [phone] 06/17/2024 10:45 AM CDT Procedure visit Department of Urology in [place], [place] [address] [place] [phone] Anny Mcneill M.D. [address] [place] [phone] 06/17/2024 1:45 PM CDT Comprehensive Visit Department of Urology in [place], [place] [address] [place] [phone] Ayesha Romero, PSolitarioAAgustin. [address] [place] [phone] 06/17/2024 4:15 PM CDT Comprehensive Visit Department of Urology in [place], [place] [address] [place] [phone] Scotty Tom, JAD, C.N.P. [address] [place] [phone] Scheduled Referrals Name Type Priority Associated Diagnoses Tammiee r Schedule Colon and Rectal Surgery office visit (clinic) Outpatient Referral Routine Expected: 05/05/2024, Expires: 07/06/2025 documented as of this encounter Goals Goal Patient Goal Type Associated Problems Recent Progress Patient-Stated? Author Eat a balanced, healthy diet Diet Worsening( 11:49 AM CDT) Yes [place], Nadia Boone R.N. Note: 02/14/20 - Has one regular meal daily (supper), otherwise not as hungry and snacks on fruit in AM, chips in evening. Will readdress his dietary goals and see if this makes a difference in his mood. Read Managing My Depression General Improving( 11:43 AM CDT) Yes [place], Nadia Boone R.N. Note: P. 46-48 Create a relapse prevention plan. Spend time with my dog again. General On track( 11:43 AM CDT) Yes Nadia Nickerson R.N. Have some time to himself regularly. General On track( 11:47 AM CDT) Yes [place], Nadia Boone R.N. Note: 01/24/20 - More structure to his day. Thankful for this time to lumber yard worker. Recognizing he needs more personal time. Meet with therapist regularly General On track( 11:43 AM CDT) Yes [place], Nadia Boone R.N. Note: Dr. Pavan Sorensen, with [facility] in [place], [place]. Take your medication every day Lifestyle On track( 11:49 AM CDT) No Nadia Nickerson R.N. Note: Increased Wellbutrin to 300 mg daily 02/09/20. PHQ-9 Total Score (max 27) < 5 Symptom Management 3(04/06/2024 7:51 PM CDT) No [place], Nadia Booen RSolitarioN. Note: Enrollment PHQ9=18 on 08/16/19 Patient [...] Total Score: 5 11/25/19 24 9:48 AM FROG OR OYSTER FARMWORKER documented as of this encounter Care Teams Accounting Systems Manager Relationship Specialty Start Date End Date Kayla Rowland APRN, C.N.P. [address] [place] [phone] PCP - General 03/04/24 Roger Sorensen Therapist 02/14/20 documented as of this encounter
--- OUTSIDE RECORDS SUMMARY | 2024-05-25 00:10 | XMS_ITS | Encounter Summary ---
Author Organization [facility] Address [address] [place] [address] Care Team Providers Care Traveling Freight Agent Name Role Phone Kayla Rowland APRN, C.N.P. 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 [address] [place] [address] [facility] Referral ID Status Reason Start Date Expiration Date V isits Requested Visits Authorized [id number] Authorized 03/21/2024 03/21/2025 8 8 Encounter Details Date Type Department Care Team ([facility] st Contact Info) Description 04/05/2024 10:30 AM CDT - 04/05/2024 11:59 PM CDT Hospital Encounter Department of Radiology, [facility], in [place], [place] [address] [place] [address] Chris Viera D.O., M.B.A. 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 Never 12/06/2021 Do you belong to any clubs o r organizations such as amish groups, unions, fraternal or athletic groups, or [...] Answer Date Recorded PHQ-2 Score 0 04/06/2024 [facility] Occupat ional [facility] - [...] Master's degree (e.g., MA, MS, Aba, MEd, TEACHER COUNSELOR, GAMALIEL) 08/15/2019 Sex and Gender Information Value Date Recorded Sex Assigned at Male 09/09/2023 12:48 PM OPERATIONS RESEARCH MANAGER Gender Identity Male 08/15/2019 2:16 PM [...] mouth every morning. 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 Apply to the scalp up to twice daily as needed for flares. 09/23/2023 ibuprofen (ADVIL,MOTRIN) 200 mg tablet Take 3 tablets (600 mg total) by mouth every 6 (six) hours as needed for pain for up to 5 days. 04/03/2024 lidocaine-prilocaine (EMLA) 2.5-2.5 % cream Apply 1 Application topically as needed for pain. Wearing gloves, gently squeeze prescribed amount of EMLA?? directly onto intact skin of desired numbing site. Do not rub in. Cover topical Lidocaine/Prilocain e (EMLA??) with occlusive dressing, to prevent patient from accidental ingestion or eye contact. Apply 60 minutes prior to indicated procedure. 30 g 04/03/2024 medical cannabis oil inhalation Inhale as needed (nauesa and anxiety). THC component: 30 mg Patient does not need while in the hospital pantoprazole (PROTONIX) 40 mg EC tablet Take 1 tablet (40 mg total) by mouth every morning before breakfast. 30 tablet 1 04/03/2024 prochlorperazine (COMPAZINE) 5 mg tablet Take 1 tablet (5 mg total) by mouth every 6 (six) hours as needed for nausea or vomiting. 8 tablet 04/03/2024 tacrolimus (PROTOPIC) 0.1 % ointment Apply 1 [...] Can cause excessive sedation 04/03/2024 05/09/2024 methocarbamoL (ROBAXIN) 500 mg tablet Take 2 tablets (1,000 mg total) by mouth 4 (four) times a day as needed for muscle spasms. 35 tablet 04/03/2024 04/06/2024 oxyCODONE (ROXICODONE) 5 mg immediate release tabletIndications:Ac [place]cree Pain Exception Take 1 tablet (5 mg total) by mouth every 3 (three) hours as needed for moderate pain or score 4-6 of 10 Indication: Acute Pain Exception. 40 tablet 04/03/2024 05/08/2024 tamsulosin (FLOMAX) 0.4 mg 24 hr capsule Take 1 capsule (0.4 mg total) by mouth daily. 30 capsule 1 04/03/2024 05/20/2024 documented as of this encounter Plan of Treatment Upcoming Encounters Date Type Department Care Team (Late st Contact Info) Description 06/01/2024 9:30 AM CDT Clinical Support Division of Colon and Rectal Surgery in [place], [place] [address] [place] [phone] Armida Bullock APRN, C.N.P., M.S.N. [address] [place] [phone] 06/07/2024 9:20 AM CDT Lab Department of Infusion Therapy in [place], [place] [address] [place] [phone] Mariluz Soler M.D. [address] [place] [phone] 06/07/2024 11:20 AM CDT Office Visit Department of Oncology in [place], [place] [address] [place] [phone] Mariluz Soler M.D. [address] [place] [phone] 06/07/2024 1:00 PM CDT Infusion Department of Oncology in [place], [place] [address] [place] [phone] Mariluz Soler M.D. [address] [place] [phone] 06/17/2024 8:30 AM CDT Appointment Department of Laboratory Medicine and Pathology, [facility] in [place], [place] [address] [place] [phone] Anny Mcneill M.D. [address] [place] [phone] 06/17/2024 9:00 AM CDT Lab Department of Infusion Therapy in [place], [place] [address] [place] [phone] Anny Mcneill M.D. [address] [place] [phone] 06/17/2024 10:45 AM CDT Procedure visit Department of Urology in [place], [place] [address] [place] [phone] Anny Mcneill M.D. [address] [place] [phone] 06/17/2024 1:45 PM CDT Comprehensive Visit Department of Urology in [place], [place] [address] [place] [phone] Ayesha Romero P.A.-C. [address] [place] [phone] 06/17/2024 4:15 PM CDT Comprehensive Visit Department of Urology in [place], [place] [address] [place] [address] Scotty Tom, AJD, UrielN.P. [address] [place] [phone] documented as of this encounter Goals Goal Patient Goal Type Associated Problems Recent Progress Patient-Stated? Author Eat a balanced, healthy diet Diet Worsening( 11:49 AM CDT) Yes [place], Nadia Boone R.N. Note: 02/14/20 - Has one regular meal daily (supper), otherwise not as hungry and snacks on fruit in AM, chips in evening. Will readdress his dietary goals and see if this makes a difference in his mood. Read Managing My Depression General Improving( 11:43 AM CDT) Yes [place], Tammy Mcghee.N. Note: P. 46-48 Create a relapse prevention plan. Spend time with my dog again. General On track( 11:43 AM CDT) Yes [place] R.N. Have some time to himself regularly. General On track( 11:47 AM CDT) Yes [place], Nadia Boone R.N. Note: 01/24/20 - More structure to his day. Thankful for this time to medicine worker. Recognizing he needs more personal time. Meet with therapist regularly General On track( 11:43 AM CDT) Yes [place], Nadia Boone, R.N. Note: Dr. Pavan Sorensen, with [employer] in [place], [place]. Take your medication every day Lifestyle On track( 11:49 AM CDT) No [place], Michael McgheeN. Note: Increased Wellbutrin to 300 mg daily 02/09/20. PHQ-9 Total Score (max 27) < 5 Symptom Management 3(04/06/2024 7:51 PM CDT) No [place], Nadia Boone R.N. Note: Enrollment PHQ9=18 on 08/16/19 Patient goals at enrollment: 1. I'd like to have my depression be less intense. 2. I'd like to learn some coping strategies. 3. 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 Chris Viera D.O., M.B.A. 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) documented in this encounter Administered Medications Inactive Administered Medications - up to 3 most recent administrations Medication Order MAR Action Action Date Dose Rate Site heparin flush 1,000 Units 1,000 Units, intra-arterial, Once, On Thu04/05/24 at 1215, For 1 dose, Imaging Protocol Orders Given 04/05/2024 11:40 AM CDT 1,000 Units heparin flush 500 Units 500 Units, intra-arterial, Once, On 6/18/24 at 1215, For 1 dose, Imaging Protocol Orders Given 04/05/2024 11:30 AM CDT 500 Units technetium Tc 99m albumin aggregated injection (Tc-99m MAA) 3.6-5.5 millicurie, intra-arterial, Once, On 04/05/24 at 1215, For 1 dose, Imaging Protocol Orders Given 04/05/2024 11:35 AM CDT 5.44 millicuries Other documented in this encounter Additional Health Concerns Assessment Noted Time PHQ-9 Depression Total Score: 5 11/25/19 24 9:48 AM OPERATIONS RESEARCH MANAGER documented as of this encounter Care Teams Traveling Freight Agent Relationship Specialty Start Date End Date Kayla Rowland APRN, C.N.P. [address] [place] [phone] PCP - General 03/04/24 Roger Sorensen Therapist 02/14/20 documented as of this encounter
--- OUTSIDE RECORDS SUMMARY | 2024-05-25 00:11 | XMS_ITS | Encounter Summary ---
Author Organization [facility] Address [address] [place] [address] Care Team Providers Care Signaler Name Role Phone Kayla Rowland APRN, C.N.P. Primary Care Provide r Encounter Details Date Type Department Care Team (Late st Contact Info) Description 03/29/2024 Ancillary Procedure Department of Laboratory Medicine Social History Tobacco Use Types Packs/Day Years Used Date Smoking Tobacco: Former Cigarettes 1 - 08/18/2015 Smokeless Tobacco: Never Alcohol Use Standard Drinks/Week Comments Not Currently 0 (1 standard drink = 0.6 oz pur e alcohol) [facility] Utilities Answer Date Recorded In the past 12 months has e electric, gas, oil, or water [employer] threatened to shut off services in your [...] often do you attend chur ch or mandaeism services? Never 12/06/2021 Do you belong to any clubs o r organizations such as sabianism groups, unions, fraternal or athletic groups, or [...] 12/06/2021 PHQ-2 Answer Date Recorded PHQ-2 Score 1 11/25/2023 [facility] Occupat ional [facility] - Occupational Stress Questionnaire Answer Date [...] Recor ded PHQ-9 Total Score (max 27) 5 11/25 Nutrition Answer Date Recorded On average, how [...] Master's degree (e.g., MA, MS, Aba, MEd, MUSEUM OR ZOO DIRECTOR, GAMALIEL) 08/15/2019 Sex and Gender Information Value Date Recorded Sex Assigned at Male 09/09/2023 12:48 PM LINER CHECKER Gender Identity Male 08/15/2019 2:16 PM CDT Sexual Orientation Straight 08/15/2019 2: 16 PM CDT documented as of this encounter Plan of Treatment Upcoming Encounters Date Type Department Care Team (Late st Contact Info) Description 06/01/2024 9:30 AM CDT Clinical Support Division of Colon and Rectal Surgery in [place], [place] [address] [place] [phone] Armida Bullock APRN, C.N.P., M.S.N. [address] [place] [phone] 06/07/2024 9:20 AM CDT Lab Department of Infusion Therapy in [place], [place] [address] [place] [phone] Mariluz Soler M.D. [address] [place] [phone] 06/07/2024 11:20 AM CDT Office Visit Department of Oncology in [place], [place] [address] [place] [phone] Mariluz Soler M.D. [address] [place] [phone] 06/07/2024 1:00 PM CDT Infusion Department of Oncology in [place], [place] [address] [place] [phone] Mariluz Soler M.D. [address] [place] [phone] 06/17/2024 8:30 AM CDT Appointment Department of Laboratory Medicine and Pathology, [facility] in [place], [place] [address] [place] [phone] Anny Mcneill M.D. [address] [place] [phone] 06/17/2024 9:00 AM CDT Lab Department of Infusion Therapy in [place], [place] [address] [place] [phone] Anny Mcneill M.D. [address] [place] [phone] 06/17/2024 10:45 AM CDT Procedure visit Department of Urology in [place], [place] [address] [place] [phone] Anny Mcneill M.D. [address] [place] [phone] 06/17/2024 1:45 PM CDT Comprehensive Visit Department of Urology in [place], [place] [address] [place] [phone] Ayesha Romero PGriffin [address] [place] [phone] 06/17/2024 4:15 PM CDT Comprehensive Visit Department of Urology in [place], [place] [address] [place] [phone] Scotty Tom, JAD, C.N.P. [address] [place] [phone] documented as of this encounter Goals Goal Patient Goal Type Associated Problems Recent Progress Patient-Stated? Author Eat a balanced, healthy diet Diet Worsening( 11:49 AM CDT) Yes [place], Nadia Boone R.N. Note: 02/14/20 - Has one regular meal daily (supper), otherwise not as hungry and snacks on fruit in AM, chips in evening. Will readdress his dietary goals and see if this makes a difference in his mood. Read Managing My Depression General Improving( 11:43 AM CDT) Yes [place], Michael McgheeNSolitario Note: P. 46-48 Create a relapse prevention plan. Spend time with my dog again. General On track( 11:43 AM CDT) Yes [place], Nadia Boone R.N. Have some time to himself regularly. General On track( 11:47 AM CDT) Yes [place], Nadia Boone R.N. Note: 01/24/20 - More structure to his day. Thankful for this time to case work aide. Recognizing he needs more personal time. Meet with therapist regularly General On track( 11:43 AM CDT) Yes [place], Nadia Boone R.N. Note: Dr. Pavan Sorensen, with [facility] in [place], [place]. Take your medication every day Lifestyle On track( 11:49 AM CDT) No [place], Michael McgheeN. Note: Increased Wellbutrin to 300 mg daily 02/09/20. PHQ-9 Total Score (max 27) < 5 Symptom Management 3(04/06/2024 7:51 PM CDT) No [place], Nadia Boone R.N. Note: Enrollment PHQ9=18 on 08/16/19 Patient goals at enrollment: 1. I'd like to have my depression be less intense. 2. I'd like to learn some coping strategies. 3. I'd like to learn how to keep my depression from flaring back again documented as of this encounter Procedures Procedure Name Priority Date/Time Associated Diagnosis Comments PATHOLOGY IMAGE EXAM Routine 03/29/2024 12:00 AM CDT documented in this encounter Results * Specimen-Pathology Image Exam (03/29/2024 12:00 AM CDT) Narrative [facility] - 03/29/2024 11:03 AM CDT This order has been created and auto-finalized to support the import of images acquired without order. The clinical documentation to support these images can be found on the encounter that produced images. Provider Not In System IMG NON RAD IMAGI NG PROCEDURES [facility] NA documented in this encounter Visit Diagnoses Not on filedocumented in this encounter Additional Health Concerns Assessment Noted Time PHQ-9 Depression Total Score: 5 11/25/19 24 9:48 AM LINER CHECKER documented as of this encounter Care Teams Signaler Relationship Specialty Start Date End Date Kayla Rowland APRN, C.N.P. [address] [place] [phone] PCP - General 03/04/24 Roger Sorensen Therapist 02/14/20 documented as of this encounter
--- OUTSIDE RECORDS SUMMARY | 2024-05-25 00:11 | XMS_ITS | Encounter Summary ---
Author Organization [facility] Address [address] [place] [address] Care Team Providers Care Accredited Pharmacy Technician Name Role Phone Kayla Rowland APRN, C.N.P. 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] Procedures WV INS IMPL IART INFUSION PUMP WV BIOPSY LIVER WEDGE WV US GUIDE INTRAOPERATIVE WV ABLT OPN LIVER TMR RF WV CHOLECYSTECTOMY WV COLECTOMY PARTL W ANASTOMOSIS WV COLECTOMY PARTL CLPRCT&COLSTMY HEPATIC ARTERY INFUSION PUMP PLACEMENT MULTIPLE WEDGE RESECTIONS LIVER ULTRASOUND LIVER ABLATION LESION LIVER CHOLECYSTECTOMY SIGMOID COLECTOMY WITH ANASTOMOSIS Referral ID Status Reason Start Date Expiration Date Visits Re quested Visits Authorized [id number] 1 1 Encounter Details Date Type Department Care Team (Late st Contact Info) Description 03/29/2024 7:50 AM CDT Anesthesia Event [facility]ST [facility] MAIN OR [address] [place] [phone] Soniya Conroy M.D. [address] [place] [address] [phone] Jacques Cuevas M.D. [address] [place] [address] [phone] Anesthesia Record Procedure Summary Procedure Name Responsible Anesthesiologist Anesthesia Start Time Anesthesia Stop Time HEPATIC ARTERY INFUSION PUMP PLACEMENT. Soniya Conroy M.D. 03/29/24 0750 03/29/24 1746 Events Date Time Event Comment 03/29/2024 0750 An Start Machine/Equipme nt Checked Infection Precautions Followed Procedure/Site Verified NPO Status Verified Supine Standard ASA Monitors Applied 0758 Anesthesia Time Out 0759 Block Start 0801 Block End 0805 An Induction 0808 An Intubation 0823 Turnover to Proceduralist 0906 Proc Start 1001 Quick Note Replaced D-Fend 1112 Quick Note Recruitment man euver 1140 Anes CS Handoff I, Jacques wu M.D., attest that I have reconciled the controlled substances and that I have reviewed all the significant information with the next anesthesia provider assuming care of this patient. 1256 Quick Note Replaced nasal temperature probe 1303 Quick Note Replaced temper ature probe cable 1310 Quick Note Switched to eso phageal temperature probe 1338 Anes CS Handoff I, Oscar Jonas M.D., attest that I have reconciled the controlled substances and that I have reviewed all the significant information with the next anesthesia provider assuming care of this patient. 1525 Quick Note Unhooked and re hooked gas sensor monitor. It was requesting to replace D-Fend but D-Fend was replaced earlier in case. 1527 Quick Note Replaced D-Fend Isoflurane set at 1.2% 1602 Quick Note Surgeon leaning against BP cuff 1703 Proc Fin 1716 Turnover to ANE Staff 1732 Airway Removal Criteria Met 1732 Extubation/Airway Removed 1732 an stop data 1746 An End I completed my handoff to the receiving staff during which we 1. Identified the patient 2. Identified the responsible provider 3. Reviewed the pertinent medical history 4. Discussed the surgical course 5. Reviewed intra-op anesthesia management and issues during anesthesia 6. Set expectations for post-procedure period 7. Allowed opportunity for questions and acknowledgement of understanding. Meds Name Total midazolam 1 mg/mL injection 2 mg fentanyl injection 50 mcg/mL 200 mcg lidocaine 2% (mg) injection 100 mg ePHEDrine PF 5 mg/mL syringe injection 2 5 mg ondansetron 4 mg/2 mL injection 4 mg sugammadex 100 mg/mL injection 250 mg propofol 10 mg/mL infusion 4,247.36 mg propofol 10 mg/mL injection 250 mg ketamine 10 mg/mL injection 50 mg scopolamine base 1 mg over 3 days 1 patc h (TRANSDERM SCOP) 0 patch dexAMETHasone (DECADRON) injection 4 mg/ mL 8 mg phenylephrine 20 mg/250 mL infusion 11.6 2 mg phenylephrine bolus from bag 1,300 mcg ceFAZolin 6 g heparin 5,000 Units/mL injection 5,000 U nits metroNIDAZOLE 500 mg IVPB 500 mg HYDROmorphone PF 100 mcg/mL Regional 200 mcg rocuronium 10 mg/mL injection 200 mg haloperidol 5 mg/mL injection 1 mg albumin human bottle 5% 1,000 mL calcium gluconate 100 mg/mL (10%) inject ion 1 g vecuronium 10 mg injection 8 mg Lactated Ringers Free Drip 1,400 mL lactated ringers free drip 2,000 mL NaCl 0.9 % free drip 1,500 mL * Agents No agents on file. * Blood No blood administrations on file. Lines, Drains, and Airways Type Details Placement Removal Implanted Port Single Lumen 09/22/23; 1222; Permanent (tunneled, implanted); Yes; Yes; Yes; Yes; Chlorhexidine (Preferred); Yes; Cap, Gloves, Gown, Large drape, Mask (Clinician), Mask (All others in room); N/A; Non-valved; Right; Chest; Power injectable; Sutured, Securement dressing; Dr. Butcher 09/22/23 1222 by Delaney Cheng RAura Ostomy (NEW) 03/29/24; Uriel Viera DO; Ileostomy; RLQ 03/29/24 0000 by Naye Perez RSolitarioNSolitario Hepatic Artery Infusion Pump 03/29/24; 1423; Yes; Yes; Yes; Chlorhexidine (Preferred); Yes; Cap, Gloves, Gown, Large drape, Mask (Clinician), Mask (All others in room); Left, Upper; Abdomen; Intera; 1.2 mL/day; Dr. Viera 03/29/24 1423 by Anny Muller RAura Closed/Suction Drain 03/29/24; Right; RL Q; Bulb; 19 Fr.; No longer in place 03/29/24 0000 by Naye Perez RSolitarioNSolitario 05/09/24 1657 by Fmailia Almeida RSolitarioN. NG/OG Tube 03/29/24; 0802; 03/29/24; 1617 03/29/24 08 by Jacques Cuevas M.D. 03/29/24 161 by Sp Jonas M.D. ETT Placement Date: 03/29/24; Placement Time: 08 (created via procedure documentation); Mask Ventilation: Easy mask; Technique: Video laryngoscopy; Type: Standard ETT; Single Lumen Tube Size: 7.5 mm; Cuffed: Yes; Location: Oral; Grade View: Grade 1; Insertion Attempts: 1; Placement Verification: Bilateral breath sounds, Positive ETCO2, Symmetrical chest wall movement; Removal Date: 03/29/24; Removal Time: 173103/29/24 08 by Jacques Cuevas M.D. 03/29/241731 by Sp Jonas M.D. Peripheral IV Placement Date: 03/29/24; Placement Time: 810; Catheter Size: 14 G ; Orientation: Left; Location: Hand; Removal Date: 04/02/24; Removal Time: 928; Removal Reason: Per patient/family request 03/29/24 08 by Sp Jonas M.D. 04/02/24 09 by Mrena Bowen RAura Peripheral IV Placement Date: 03/29/24; Placement Time: 826; Catheter Size: 16 G; Orientation: Right; Location: Hand; Removal Date: 03/31/24; Removal Time: 1900; Removal Reason: No longer in place 03/29/24 08 by Sp Jonas M.D. 03/31/241900 by Stephany Santiago, R.NSolitario Indwelling Urinary Catheter Placement Date: 03/29/24; Placement Time: 08; Inserted by: Nino Lovett CSFA; Type: Coude; Size: 14 Fr.; Balloon Size: 5 mL (10 mL sterile water in balloon); Urine Returned: Yes; Removal Date: 03/30/24; Removal Time: 0900; Removal Reason: Per order 03/29/24 0842 by Anny Muller RAura 03/30/24 09 by Porsche Cameron, R.Anival Arterial Line Placement Date: 03/29/24; Placemnt Time: 903 (created via procedure documentation); Size: 20 G; Orientation: Right; Location: Radial; Site Prep: Chlorhexidine (Preferred); Technique: Ultrasound guidance; Insertion Attempts: 1; Securement: Securement dressing, Securement device; Removal Date: 03/29/24; Removal Time: 183203/29/24903 by Sp Jonas M.D. 03/29/24 183 by Nusrat Mullen R.N. Wound 03/29/24; 1330; Inci kandice (hepatic artery infusion pump incision); Abdomen; Left, Upper; 05/20/24; 0802; Wound healed 03/29/24 1330 by Anny Muller R.N. 05/20/24 0802 by Merna Mitchell R.N. Wound 03/29/24; 1336; Incision; Abdomen; Mid; 05/20/24; 0802; Wound healed 03/29/24 1336 by Anny Muller R.N. 05/20/24 0802 by Merna Mitchell R.N. documented in this encounter Social History Tobacco Use Types Packs/Day Years Used Date Smoking Tobacco: Former Cigarettes 1 - 08/18/2015 Smokeless Tobacco: Never Alcohol Use Standard Drinks/Week Comments Not Currently 0 (1 standard drink = 0.6 oz pur e alcohol) 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 - 03/29/2024 6:44 PM CDT Patient: Heriberto Snowden Procedure Summary Date: 03/29/24 Room / Location: [place] [address] / [facility] [place] in [place], [place] Anesthesia Start: 0750 Anesthesia Stop: 1746 Procedures: HEPATIC ARTERY INFUSION PUMP PLACEMENT. MULTIPLE WEDGE RESECTIONS LIVER. ULTRASOUND LIVER. ABLATION LESION LIVER. CHOLECYSTECTOMY. RESECTION LOW ANTERIOR WITH ANASTOMOSIS. CONSTRUCTION ILEOSTOMY. 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 Responsible Provider: Soniya Conroy M.D. Anesthesia Type: general with pain block ASA Status: 3 Anesthesia Type: general with pain block Last vitals Vitals Value Taken Time BP 113/71 03/29/24 1830 Temp 36.6 ??C 03/29/24 1745 Pulse 65 03/29/24 1844 Resp 15 03/29/24 1844 SpO2 99 % 03/29/24 1844 Vitals shown include unfiled device data. Please reference Vitals flowsheet for most recent vital signs. Anesthesia Post Evaluation Patient Disposition: general care unit Cardiovascular status: hemodynamics (HR & BP) acceptable Respiratory status: patent airway with spontaneous effort Temperature: normothermic Oxygen requirements: nasal cannula Level of consciousness: awake Pain score: pain adequately controlled and/or at baseline Post Op nausea/vomiting: none Hydration status: euvolemic * Anesthesia Procedure Notes - Sp Jonas M.D. - 03/29/2024 9:06 AM CDT Associated Order(s): Regional Block Regional Block Date/Time: 03/29/2024 7:59 AM Performed by: Jacques Cuevas M.D. Authorized by: Soniya Conroy M.D. Location: OR PROCEDURE DETAILS: Block Indication: post-op pain block Block indication comment: Post-Op pain block at request of surgeon Block Type - Neuraxial: spinal Positioning: sitting Approach: midline Level inserted: L4-5 Block technique: landmark technique Injection technique: single injection Needle type: pencan Gauge: 24G CSF: yes Pain with needle advancement or injection of local anesthetic: no Injected Medications: Injection(s), anesthetic agent(s) and/or steroid; [...] utilized as applicable for the procedure.: yes Skin prep: chlorhexidine / alcohol SEDATION / ANESTHESIA Anesthesia method: local infiltration and moderate sedation Local infiltrate type: lidocaine I completed the presedation assessment form and supervised the sedation. Planned sedation level achieved: yes Present during sedation (intra-service time). A trained independent observer (e.g. RN) assisted with monitoring the patient's level of consciousness and physiological status throughout the procedure (see nursing documentation). POST-PROCEDURE DETAILS: Procedure completed successfully: successful procedure Notable Events: none ATTESTATION STATEMENT A resident or fellow participated in the procedure, and the rn lactation consultant was present for the entire procedure. * Anesthesia Procedure Notes - Sp Jonas M.D. - 03/29/2024 9:04 AM CDT Associated Order(s): Airway Airway Date/Time: 03/29/2024 8:08 AM Performed by: Jacques Cuevas M.D. Authorized by: Soniya Conroy M.D. Patient location during procedure: OR / Procedure Area PROCEDURE DETAILS: Mask difficulty assessment: easy mask Final airway type: video laryngoscope Laryngeal Manipulation: no Final best view of glottic structures - Cormack/Lehane Score: grade 1 ETT location: oral VL device: glide scope [place] scope blade size: 4 Tube size: 7.5 [...] ANESTHESIA Anesthesia method: anesthesia POST PROCEDURE DETAILS: Procedure outcome: successful Notable Events: no complications * Anesthesia Procedure Notes - Sp Jonas M.D. - 03/29/2024 9:04 AM CDT Associated Order(s): Invasive Catheter Invasive Catheter Date/Time: 03/29/2024 9:04 AM Performed by: Sp Jonas M.D. Authorized by: Soniya Conroy M.D. Location: OR PROCEDURE DETAILS: Line type: arterial Laterality: right Location: radial Location details: new site Age group: adult Catheter diameter: 20 Ga Technique: ultrasound guided Ultrasound guidance: image not saved Monitored: yes Number of attempts: 1 UNIVERSAL PROTOCOL All [...] utilized as applicable for the procedure.: yes Skin preparation: chlorhexidine SEDATION / ANESTHESIA Anesthesia method: anesthesia POST-PROCEDURE DETAILS: Procedure completed successfully: yes Line secured: secured with sutureless device Chlorhexidine disc around insertion site and under catheter with slight turn: yes Notable Events - arterial: none ATTESTATION STATEMENT A resident or fellow participated in the procedure, and the rn lactation consultant was present for the entire procedure. * Anesthesia Preprocedure Evaluation - Sp Jonas M.D. - 03/29/2024 6:37 AM CDT Preprocedure Anesthesia & H&P Assessment Procedure Summary Date/Time: 03/29/24 0725 Procedures: HEPATIC ARTERY INFUSION PUMP PLACEMENT. MULTIPLE WEDGE RESECTIONS LIVER. ULTRASOUND LIVER. ABLATION LESION LIVER. CHOLECYSTECTOMY. RESECTION LOW ANTERIOR WITH ANASTOMOSIS. CONSTRUCTION ILEOSTOMY. 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 Location: OR 206 ROMB 01 552 / [facility] [place] in [place], [place] Providers: Chris Viera D.O., M.B.A.; Tej Quintanilla M.B., Mike., M.P.H. Pertinent components of the patient's history including current problem list, medical history, surgical history, family history, social history, medications and allergies were reviewed. Present illness and pre-op diagnosis were confirmed. The planned surgery / procedure was verified with the patient / legal guardian. 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) (+) Malignant Neoplasm Of Rectum (HCC) Other (+) Obesity Body Mass Index 30-39.9 Adult OBJECTIVE PHYSICAL EXAMINATION Airway (HEENT) Mallampati: II TM Distance: >3 FB Neck ROM: Full Mouth Opening: >3 cm Cardiovascular Rhythm: Regular Rate: Normal Cardiovascular Assessment: cardiovascular normal Functional Capacity: >4 METS Pulmonary Pulmonary Assessment: Clear General / Constitutional Constitutional Assessment: Obese General State of Health:: healthy appearing and calm Neurological Neurologic Assessment: alert and oriented x 3 Dental Dental Assessment: dentition intact ASSESSMENT / PLAN ANESTHESIA PLAN ASA: 3 Anesthesia Plan: general with pain block Discussed the risks/benefits/alternatives of neuraxial anesthesia including spinals and epidurals with the patient. All questions were answered. The patient was consented for neuraxial anesthesia. Patient seen and allergies reviewed, anesthesia plan and risks discussed directly with patient /legal guardian or through an postal clerk. Risks/Benefits/Alternatives of Blood transfusion discussed with patient / legal guardian, includingan opportunity to ask questions and/or decline some or all transfusion therapies. The patient / legal guardian consented to the use of all blood products, as deemed medically necessary Approval to Proceed: approved for anesthesia documented in this encounter Plan of Treatment Upcoming Encounters Date Type Department Care Team (Late st Contact Info) Description 06/01/2024 9:30 AM CDT Clinical Support Division of Colon and Rectal Surgery in [place], [place] [address] [place] [phone] Armida Bullock APRN, C.N.P., M.S.N. [address] [place] [phone] 06/07/2024 9:20 AM CDT Lab Department of Infusion Therapy in [place], [place] [address] [place] [phone] Mariluz Soler M.D. [address] [place] [phone] 06/07/2024 11:20 AM CDT Office Visit Department of Oncology in [place], [place] [address] [place] [phone] Mariluz Soler M.D. [address] [place] [phone] 06/07/2024 1:00 PM CDT Infusion Department of Oncology in [place], [place] [address] [place] [phone] Mariluz Soler M.D. [address] [place] [phone] 06/17/2024 8:30 AM CDT Appointment Department of Laboratory Medicine and Pathology, [facility] in [place], [place] [address] [place] [phone] Anny Mcneill M.D. [address] [place] [phone] 06/17/2024 9:00 AM CDT Lab Department of Infusion Therapy in [place], [place] [address] [place] [phone] Anny Mcneill M.D. [address] [place] [phone] 06/17/2024 10:45 AM CDT Procedure visit Department of Urology in [place], [place] [address] [place] [phone] Anny Mcneill M.D. [address] [place] [phone] 06/17/2024 1:45 PM CDT Comprehensive Visit Department of Urology in [place], [place] [address] [place] [phone] Ayesha Romero, PSolitarioASolitario-C. [address] [place] [phone] 06/17/2024 4:15 PM CDT Comprehensive Visit Department of Urology in [place], [place] [address] [place] [phone] Scotty Tom, JAD, C.N.P. [address] [place] [phone] documented as of this encounter Goals Goal Patient Goal Type Associated Problems Recent Progress Patient-Stated? Author Eat a balanced, healthy diet Diet Worsening( 11:49 AM CDT) Yes [place], Nadia Boone R.N. Note: 02/14/20 - Has one regular meal daily (supper), otherwise not as hungry and snacks on fruit in AM, chips in evening. Will readdress his dietary goals and see if this makes a difference in his mood. Read Managing My Depression General Improving( 11:43 AM CDT) Yes [place], Nadia Boone R.N. Note: P. 46-48 Create a relapse prevention plan. Spend time with my dog again. General On track( 11:43 AM CDT) Yes [place], Nadia Boone R.N. Have some time to himself regularly. General On track( 11:47 AM CDT) Yes [place], Nadia Boone R.N. Note: 01/24/20 - More structure to his day. 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 Recognizing he needs more personal time. Meet with therapist regularly General On track( 11:43 AM CDT) Yes [place], Nadia Boone R.N. Note: Dr. Pavan Sorensen, with [facility] in [place], [place]. Take your medication every day Lifestyle On track( 11:49 AM CDT) No [place], Nadia Boone R.N. Note: Increased Wellbutrin to 300 mg daily 02/09/20. PHQ-9 Total Score (max 27) < 5 Symptom Management 3(04/06/2024 7:51 PM CDT) No [place], Nadia Boone, R.N. Note: Enrollment PHQ9=18 on 08/16/19 Patient goals at enrollment: 1. I'd like to have my depression be less intense. 2. I'd like to learn some coping strategies. 3. I'd like to learn how to keep my depression from flaring back again documented as of this encounter Procedures Procedure Name Priority Date/Time Associated Diagnosis Comments LDA ANE ARTERIAL LINE INSERTION Routine 03/29/2024 9:04 AM CDT WV ARTL CATH/CNULA MONITOR PERC Routine 03/29/2024 9:04 AM CDT AIRWAY MANAGEMENT Routine 03/29/2024 8:0 8 AM CDT WV INJ SPINE LUMB/SAC WO IMG Routine 03/29/2024 7:59 AM CDT documented in this encounter Results * WV ARTL CATH/CNULA MONITOR PERC, LDA ANE ARTERIAL [...] fellow participated in the procedure, and the rn lactation consultant was present for the entire procedure. [...] ETT location: oral VL device: glide scope [place] scope blade size: 4 Tube size: 7.5 [...] Soniya Conroy M.D. ANESTHESIA ORDERABLE S * WV INJ SPINE LUMB/SAC WO IMG (03/29/2024 7:59 [...] fellow participated in the procedure, and the rn lactation consultant was present for the entire procedure. Soniya Conroy M.D. PROCEDURE/MINOR SURG ICAL ORDERABLES documented in this encounter Visit Diagnoses Not on filedocumented in this encounter Administered Medications Inactive Administered Medications - up to 3 most recent administrations Medication Order MAR Action Action Date Dose Rate Site albumin human 5 % injection intravenous, As needed, Starting on Thu03/29/24 at 1103, Anesthesia Intra-op Given 03/29/2024 12:41 PM CDT 250 mL Given 03/29/2024 12:25 PM CDT 250 mL Given 03/29/2024 11:29 AM CDT 250 mL calcium gluconate injection intravenous, As needed, Starting on Thu03/29/24 at 1135, Anesthesia Intra-op Given 03/29/2024 11:35 AM CDT 1 g ceFAZolin injection (ANCEF) intravenous, As needed, Starting on Thu03/29/24 at 0837, Anesthesia Intra-op Given 03/29/2024 2:16 PM CDT 2 g Given 03/29/2024 11:26 AM CDT 2 g Given 03/29/2024 8:37 AM CDT 2 g dexAMETHasone injection (DECADRON) intravenous, As needed, Starting on Thu03/29/24 at 0839, Anesthesia Intra-op Given 03/29/2024 8:39 AM CDT 8 mg ePHEDrine (PF) injection intravenous, As needed, Starting on Thu03/29/24 at 1035, Anesthesia Intra-op Given 03/29/2024 2:52 PM CDT 5 mg Given 03/29/2024 10:46 AM CDT 5 mg Given 03/29/2024 10:39 AM CDT 10 mg fentaNYL injection (SUBLIMAZE) intravenous, As needed, Starting on Thu03/29/24 at 0759, Anesthesia Intra-op Given 03/29/2024 2:03 PM CDT 50 mcg Given 03/29/2024 10:42 AM CDT 50 mcg Given 03/29/2024 8:06 AM CDT 50 mcg haloperidol lactate injection (HALDOL) intravenous, As needed, Starting on Thu03/29/24 at 1042, Anesthesia Intra-op Given 03/29/2024 10:42 AM CDT 1 mg heparin (porcine) injection subcutaneous, As needed, Starting on Thu03/29/24 at 0837, Anesthesia Intra-op Given 03/29/2024 8:37 AM CDT 5,000 Units HYDROmorphone dilution injection (DILAUDID) intrathecal, As needed, Starting on Thu03/29/24 at 0800, Anesthesia Intra-op Given 03/29/2024 8:00 AM CDT 200 mcg ketamine injection (KETALAR) intravenous, As needed, Starting on Thu03/29/24 at 0806, Anesthesia Intra-op Given 03/29/2024 12:11 PM CDT 10 mg Given 03/29/2024 11:04 AM CDT 10 mg Given 03/29/2024 9:10 AM CDT 10 mg Lactated Ringer's intravenous, Continuous Infusion: Per Instructions PRN, Starting on Thu03/29/24 at 0751, Anesthesia Intra-op New Bag 03/29/2024 1:42 PM CDT New Bag 03/29/2024 7:51 AM CDT Lactated Ringer's intravenous, Continuous Infusion: Per Instructions PRN, Starting on Thu03/29/24 at 0828, Anesthesia Intra-op New Bag 03/29/2024 3:33 PM CDT New Bag 03/29/2024 1:49 PM CDT New Bag 03/29/2024 8:28 AM CDT lidocaine (PF) (cardiac) injection intravenous, As needed, Starting on Thu03/29/24 at 0805, Anesthesia Intra-op Given 03/29/2024 8:05 AM CDT 100 mg metroNIDAZOLE in NaCl (iso osm) IVPB (FLAGYL) intravenous, Administer over 30 Minutes, As needed, Starting on Thu03/29/24 at 0833, Anesthesia Intra-op Given 03/29/2024 8:33 AM CDT 500 mg midazolam (PF) injection (VERSED) intravenous, As needed, Starting on Thu03/29/24 at 0759, Anesthesia Intra-op Given 03/29/2024 7:59 AM CDT 2 mg NaCl 0.9% infusion intravenous, Continuous Infusion: Per Instructions PRN, Starting on Thu03/29/24 at 0812, Anesthesia Intra-op New Bag 03/29/2024 1:42 PM CDT New Bag 03/29/2024 8:12 AM CDT ondansetron (PF) injection (ZOFRAN) intravenous, As needed, Starting on Thu03/29/24 at 1632, Anesthesia Intra-op Given 03/29/2024 4:32 PM CDT 4 mg phenylephrine 80 mcg/mL in NaCl 0.9% 250 mL infusion intravenous, Continuous Infusion: Per Instructions PRN, Starting on Thu03/29/24 at 0805, Anesthesia Intra-op Rate/Dose Change 03/29/2024 4:24 PM CDT 0.3 mcg/kg/min 22.973 mL/hr Rate/Dose Change 03/29/2024 3:57 PM CDT 0.4 mcg/kg/min 30. 63 mL/hr Rate/Dose Change 03/29/2024 3:19 PM CDT 0.3 mcg/kg/min 22. 973 mL/hr phenylephrine bolus from bag (ETHEL-SYNEPHRINE) intravenous, As needed, Starting on Thu03/29/24 at 1020, Anesthesia Intra-op Given 03/29/2024 4:25 PM CDT 100 mcg Given 03/29/2024 3:11 PM CDT 100 mcg Given 03/29/2024 2:46 PM CDT 100 mcg propofol 10 mg/mL infusion (DIPRIVAN) intravenous, Continuous Infusion: Per Instructions PRN, Starting on Thu03/29/24 at 0806, Anesthesia Intra-op Rate/Dose Change 03/29/2024 3:36 PM CDT 25 mcg/kg/min 15.315 mL/hr Rate/Dose Change 03/29/2024 2:37 PM CDT 50 mcg/kg/min 30.6 3 mL/hr Rate/Dose Change 03/29/2024 1:59 PM CDT 75 mcg/kg/min 45.9 45 mL/hr propofoL injection (DIPRIVAN) intravenous, As needed, Starting on Thu03/29/24 at 0806, Anesthesia Intra-op Given 03/29/2024 10:43 AM CDT 50 mg Given 03/29/2024 8:06 AM CDT 200 mg rocuronium injection (ZEMURON) intravenous, As needed, Starting on Thu03/29/24 at 0807, Anesthesia Intra-op Given 03/29/2024 12:53 PM CDT 20 mg Given 03/29/2024 12:30 PM CDT 20 mg Given 03/29/2024 11:46 AM CDT 20 mg sugammadex injection (BRIDION) intravenous, As needed, Starting on Thu03/29/24 at 1630, Anesthesia Intra-op Given 03/29/2024 4:30 PM CDT 250 mg vecuronium injection (NORCURON) intravenous, As needed, Starting on Thu03/29/24 at 1332, Anesthesia Intra-op Given 03/29/2024 3:37 PM CDT 2 mg Given 03/29/2024 2:54 PM CDT 2 mg Given 03/29/2024 2:22 PM CDT 2 mg documented in this encounter Additional Health Concerns Assessment Noted Time PHQ-9 Depression Total Score: 5 11/25/19 24 9:48 AM 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 [address] [place] [phone] PCP - General 03/04/24 Roger Sorensen Therapist 02/14/20 documented as of this encounter
--- OUTSIDE RECORDS SUMMARY | 2024-05-25 00:11 | XMS_ITS | Encounter Summary ---
Author Organization [facility] Address [address] [place] [address] Care Team Providers Care Accident Investigator Name Role Phone Kayla Rowland APRN, C.N.P. Primary Care Provide r Encounter Details Date Type Department Care Team (Late st Contact Info) Description 03/29/2024 Orders Only Department of Oncology in [place], [place] [address] [place] [phone] Patsy Bowser APRN, C.N.P., M.S. [address] [place] [address] Social History Tobacco Use Types Packs/Day Years Used Date Smoking Tobacco: Former Cigarettes 1 - 08/18/2015 Smokeless Tobacco: Never Alcohol Use Standard Drinks/Week Comments Not Currently 0 (1 standard drink = 0.6 oz pur e alcohol) [facility] Utilities Answer Date Recorded In the past 12 months has [facility] [employer], oil, or water [employer] threatened to shut off services in your [...] often do you attend chur ch or jew services? Never 12/06/2021 Do you belong to any clubs o r organizations such as orthodox groups, unions, fraternal or athletic groups, [...] Master's degree (e.g., MA, MS, Aba, MEd, MOTOR VEHICLE CLERK, GAMALIEL) 08/15/2019 Sex and Gender Information Value Date Recorded Sex Assigned at Male 09/09/2023 12:48 PM BOX OFFICE MANAGER Gender Identity Male 08/15/2019 2:16 PM CDT Sexual Orientation Straight 08/15/2019 2: 16 PM CDT documented as of this encounter Plan of Treatment Upcoming Encounters Date Type Department Care Team (Late st Contact Info) Description 06/01/2024 9:30 AM CDT Clinical Support Division of Colon and Rectal Surgery in [place], [place] [address] [place] [phone] Armida Bullock, JAD, C.N.P., M.S.N. [address] [place] [phone] 06/07/2024 9:20 AM CDT Lab Department of Infusion Therapy in [place], [place] [address] [place] [phone] Mariluz Soler M.D. [address] [place] [phone] 06/07/2024 11:20 AM CDT Office Visit Department of Oncology in [place], [place] [address] [place] [phone] Mariluz Soler M.D. [address] [place] [phone] 06/07/2024 1:00 PM CDT Infusion Department of Oncology in [place], [place] [address] [place] [phone] Mariluz Soelr M.D. [address] [place] [phone] 06/17/2024 8:30 AM CDT Appointment Department of Laboratory Medicine and Pathology, [facility] in [place], [place] [address] [place] [phone] Anny Mcneill M.D. [address] [place] [phone] 06/17/2024 9:00 AM CDT Lab Department of Infusion Therapy in [place], [place] [address] [place] [phone] Anny Mcneill M.D. [address] [place] [phone] 06/17/2024 10:45 AM CDT Procedure visit Department of Urology in [place], [place] [address] [place] [phone] Anny Mcneill M.D. [address] [place] [phone] 06/17/2024 1:45 PM CDT Comprehensive Visit Department of Urology in [place], [place] [address] [place] [phone] Ayesha Romero P.A.-C. [address] [place] [phone] 06/17/2024 4:15 PM CDT Comprehensive Visit Department of Urology in [place], [place] [address] [place] [phone] Scotty Tom APRN, UrielNSolitarioP. [address] [place] [phone] documented as of this encounter Goals Goal Patient Goal Type Associated Problems Recent Progress Patient-Stated? Author Eat a balanced, healthy diet Diet Worsening( 11:49 AM CDT) Yes [place], Nadia Boone R.N. Note: 02/14/20 - Has one regular meal daily (supper), otherwise not as hungry and snacks on fruit in AM, chips in evening. Will readdress his dietary goals and see if this makes a difference in his mood. Read Managing My Depression General Improving( 11:43 AM CDT) Yes [place], Nadia Boone R.N. Note: P. 46-48 Create a relapse prevention plan. Spend time with my dog again. General On track( 11:43 AM CDT) Yes [place] R.N. Have some time to himself regularly. General On track( 11:47 AM CDT) Yes [place], Tammy Mcghee.N. Note: 01/24/20 - More structure to his day. Thankful for this time to roundhouse worker. Recognizing he needs more personal time. Meet with therapist regularly General On track( 11:43 AM CDT) Yes [place], Nadia Boone R.N. Note: Dr. Pavan Sorensen, with [employer] in [place], [place]. Take your medication every day Lifestyle On track( 020 11:49 AM CDT) No [place], Nadia Boone RSolitarioN. Note: Increased Wellbutrin to 300 mg daily 02/09/20. PHQ-9 Total Score (max 27) < 5 Symptom Management 3(04/06/2024 7:51 PM CDT) No [place], Nadia Boone, R.N. Note: Enrollment PHQ9=18 on [...] Total Score: 5 11/25/19 24 9:48 AM BOX OFFICE MANAGER documented as of this encounter Care Teams Accident Investigator Relationship Specialty Start Date End Date Kayla Rowland APRN, C.N.P. [address] [place] [phone] PCP - General 03/04/24 Roger Sorensen Therapist 02/14/20 documented as of this encounter
--- OUTSIDE RECORDS SUMMARY | 2024-05-25 00:11 | XMS_ITS | Encounter Summary ---
Author Organization [facility] Address [address] [place] [address] Care Team Providers Care Front Desk Team Member Name Role Phone Kayla Rowland APRN, C.N.P. Primary Care Provide r Reason for Referral * Outpatient (Routine) - Closed Specialty Diagnoses / Procedures Referred By Keya olivares Referred To Contact Diagnoses Secondary Malignant Neoplasm Liver (HCC) Procedures US Guidance Intraoperative Panda Masters M.D. 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) [C78.7] Procedures SD INS IMPL IART INFUSION PUMP SD BIOPSY LIVER WEDGE SD US GUIDE INTRAOPERATIVE SD ABLT OPN LIVER TMR RF SD CHOLECYSTECTOMY SD COLECTOMY PARTL W ANASTOMOSIS SD COLECTOMY PARTL CLPRCT&COLSTMY HEPATIC ARTERY INFUSION PUMP PLACEMENT MULTIPLE WEDGE RESECTIONS LIVER ULTRASOUND LIVER ABLATION LESION LIVER CHOLECYSTECTOMY SIGMOID COLECTOMY WITH ANASTOMOSIS Referral ID Status Reason Start Date Expiration Date Visits Re quested Visits Authorized [id number] 1 1 Encounter Details Date Type Department Care Team (Latest Contact Info) Description 03/29/2024 10:00 AM CDT - 03/29/2024 11:59 PM CDT Hospital Encounter Department of Radiology, [facility], in [place], [place] [address] [place] [phone] Panda Masters M.D. [address] [place] [phone] Secondary Malignant Neoplasm Liver (HCC) Discharge Disposition: Home or Self Care Social History Tobacco Use Types Packs/Day Years Used Date Smoking Tobacco: Former Cigarettes 1 - 08/18/2015 Smokeless Tobacco: Never Alcohol Use Standard Drinks/Week Comments Not Currently 0 (1 standard drink = 0.6 oz pur e alcohol) [facility] Utilities Answer Date Recorded In the past 12 months has e electric, gas, oil, or water [employer] threatened to shut off services in your [...] often do you attend chur ch or sikh services? Never 12/06/2021 Do you belong to [...] Answer Date Recorded PHQ-2 Score 1 11/25/2023 [facility] of Occupat ional [facility] - Occupational Stress Questionnaire Answer [...] Master's degree (e.g., MA, MS, Aba, MEd, SERVICE BAR CASHIER, GAMALIEL) 08/15/2019 Sex and Gender Information Value Date Recorded Sex Assigned at Male 09/09/2023 12:48 PM GOLF TOURNAMENT CONSULTANT Gender Identity Male 08/15/2019 2:16 PM CDT [...] total) by mouth every morning. 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 Apply to the scalp up to twice daily as needed for flares. 09/23/2023 heparin 100 unit/mL syringeIndications:M alignant Neoplasm Of Colon Rectosigmoid Junction (HCC),Secondary Malignant Neoplasm Liver (HCC) 5 mL (500 Units total) by intra-catheter route once as needed for line care for up to 1 dose. Flush IV line AFTER 0.9% Sodium Chloride flush 04/03/2024 heparin 100 unit/mL syringeIndications:M alignant Neoplasm Of Colon Rectosigmoid Junction (HCC),Secondary Malignant Neoplasm Liver (HCC) Infuse 5 mL (500 Units total) by intra-catheter route once as needed for line care. Flush IV line AFTER 0.9% Sodium Chloride flush 04/03/2024 heparin 100 unit/mL syringeIndications:M alignant Neoplasm Of Colon Rectosigmoid Junction (HCC),Secondary Malignant Neoplasm Liver (HCC) infuse 5 mL (500 Units total) by intra-catheter route once as needed for line care for up to 1 dose. Flush IV line AFTER 0.9% Sodium Chloride flush 04/03/2024 ibuprofen (ADVIL,MOTRIN) 200 mg tablet Take 3 [...] daily as needed. 60 g 11 06/01/2023 magnesium oxide (MAG-OX) 400 mg (241.3 mg magnesium) tablet Take 1 tablet (400 mg total) by mouth daily as needed (constipation) for up to 1 day. 04/03/2024 04/04/2024 heparin 100 unit/mL syringeIndications:M alignant Neoplasm Of Colon Rectosigmoid Junction (HCC),Secondary Malignant Neoplasm Liver (HCC) infuse 5 mL (500 Units total) by intra-catheter route once as needed for line care for up to 1 dose. Flush IV line AFTER 0.9% Sodium Chloride flush 60 mL 3 09/25/2023 04/03/2024 heparin 100 unit/mL syringeIndications:M alignant Neoplasm Of Colon Rectosigmoid Junction (HCC),Secondary Malignant Neoplasm Liver (HCC) 5 mL (500 Units total) by intra-catheter route once as needed for line care for up to 1 dose. Flush IV line AFTER 0.9% Sodium Chloride flush 60 mL 3 11/05/2023 04/03/2024 heparin 100 unit/mL syringeIndications:M alignant Neoplasm Of Colon Rectosigmoid Junction (HCC),Secondary Malignant Neoplasm Liver (HCC) Flush 5 mL (500 Units total) by intra-catheter route once as needed for line care for up to 1 dose. Flush IV line AFTER 0.9% Sodium Chloride flush 60 mL 3 11/19/2023 04/03/2024 heparin 100 unit/mL syringeIndications:M alignant Neoplasm Of Colon Rectosigmoid Junction (HCC),Secondary Malignant Neoplasm Liver (HCC) 5 mL (500 Units total) by intra-catheter route once as needed for line care for up to 1 dose. Flush IV line AFTER 0.9% Sodium Chloride flush 60 mL 3 12/18/2023 04/03/2024 heparin 100 unit/mL syringeIndications:M alignant Neoplasm Of Colon Rectosigmoid Junction (HCC),Secondary Malignant Neoplasm Liver (HCC) 5 mL (500 Units total) by intra-catheter route once as needed for line care for up to 1 dose. Flush IV line AFTER 0.9% Sodium Chloride flush 60 mL 3 01/01/2024 04/03/2024 heparin 100 unit/mL syringeIndications:M alignant Neoplasm Of Colon Rectosigmoid Junction (HCC),Secondary Malignant Neoplasm Liver (HCC) Infuse 5 mL (500 Units total) by intra-catheter route once as needed for line care. Flush IV line AFTER 0.9% Sodium Chloride flush 15 mL 01/29/2024 04/03/2024 heparin 100 unit/mL syringeIndications:M alignant Neoplasm Of [...] patch on the skin daily. Apply to 5. 5 patch 04/03/2024 04/03/2024 lidocaine (LIDODERM) 5 % adhesive patch,medicated Place 1 patch on the skin daily. Apply to area of most pain. 5 patch 04/03/2024 05/15/2024 LORazepam (ATIVAN) 0.5 mg tablet Take 1 tablet (0.5 mg total) by mouth 3 (three) times a day as needed (prn nausea). 30 tablet 12/03/2023 04/03/2024 LORazepam (ATIVAN) 0.5 mg tablet Take 1 [...] oxyCODONE (ROXICODONE) 5 mg immediate release tabletIndications:Ac native Pain Exception Take 1 tablet (5 mg [...] Division of Colon and Rectal Surgery in [address] [phone] Armida Bullock APRN, C.N.P., M.S.N. [address] [place] [phone] 06/07/2024 9:20 AM CDT Lab Department of Infusion Therapy in [address] [phone] Mariluz Soler M.D. [address] [place] [phone] 06/07/2024 11:20 AM CDT Office Visit Department of Oncology in [address] [phone] Mariluz Soler M.D. [address] [place] [phone] 06/07/2024 1:00 PM CDT Infusion Department of Oncology in [address] [phone] Mariluz Soler M.D. [address] [place] [phone] 06/17/2024 8:30 AM CDT Appointment Department of Laboratory Medicine and Pathology, [facility] in [place], [place] [address] [place] [phone] Anny Mcneill M.D. [address] [place] [phone] 06/17/2024 9:00 AM CDT Lab Department of Infusion Therapy in [place], [place] [address] [place] [phone] Anny Mcneill M.D. [address] [place] [phone] 06/17/2024 10:45 AM CDT Procedure visit Department of Urology in [place], [place] [address] [place] [phone] Anny Mcneill M.D. [address] [place] [phone] 06/17/2024 1:45 PM CDT Comprehensive Visit Department of Urology in [place], [place] [address] [place] [phone] Ayesha Romero, P.A.-C. [address] [place] [phone] 06/17/2024 4:15 PM CDT Comprehensive Visit Department of Urology in [place], [place] [address] [place] [phone] Scotty Tom, BULB FILLER, C.N.P. [address] [place] [phone] documented as of this encounter Goals Goal Patient Goal Type Associated Problems Recent Progress Patient-Stated? Author Eat a balanced, healthy diet Diet Worsening( 11:49 AM CDT) Yes [place], Nadia Boone R.N. Note: 02/14/20 - [...] General On track( 11:47 AM CDT) Yes [place], Nadia Boone R.N. Note: 01/24/20 - More structure to his day. Thankful for this time to psych social worker. Recognizing he needs more personal time. Meet with therapist regularly General On track( 11:43 AM CDT) Yes [place], Nadia Boone R.N. Note: Dr. Pavan Sorensen, with [facility] in [place], [place]. Take your medication every day Lifestyle [...] Procedure Name Priority Date/Time Associated Diagnosis Comments US GUIDANCE INTRAOPERATIVE RAD - Routine (most inpatients and all outpatients) 03/29/2024 2:09 PM CDT Secondary Malignant Neoplasm Liver (HCC) documented in this encounter Results * US Guidance Intraoperative (03/29/2024 2:09 PM [...] for 1 minute at [address] US PROCEDURES documented in this encounter Visit Diagnoses Diagnosis Secondary Malignant Neoplasm Liver (HCC) documented in this encounter Additional Health Concerns Assessment Noted Time PHQ-9 Depression Total Score: 5 11/25/19 24 9:48 AM GOLF TOURNAMENT CONSULTANT documented as of this encounter Care Teams Front Desk Team Member Relationship Specialty Start Date End Date MonsKayla huitron APRN, C.N.P. [address] [place] [phone] PCP - General 03/04/24 Roger Sorensen Therapist 02/14/20 documented as of this encounter
--- OUTSIDE RECORDS SUMMARY | 2024-05-25 00:11 | XMS_ITS | Encounter Summary ---
Author Organization [facility] Address [address] [place] [id number] Care Team Providers Care Senior Php Developer Name Role Phone Kayla Rowland APRN, C.N.P. 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 [address] [place] [address] [facility] Referral ID Status Reason Start Date Expiration Date Visits Re quested Visits Authorized [id number] Closed 04/03/2024 04/03/2025 1 1 * Specialty Diagnoses / Procedures Referred By Keya olivares Referred To Contact [facility] [address] [place] [phone] [facility] Referral ID Status Reason Start Date Expiration Date Visits Re quested Visits Authorized Reason for Visit * Auth/Cert (Routine) Specialty Diagnoses / Procedures Referred By Keya olivares Referred To Contact Diagnoses Malignant Neoplasm Of Rectum (HCC) Secondary Malignant Neoplasm Liver (HCC) Malignant Neoplasm Of Rectum (HCC) [C20] Secondary Malignant Neoplasm Liver (HCC) [C78.7] Procedures KS INS IMPL IART INFUSION PUMP KS BIOPSY LIVER WEDGE KS US GUIDE INTRAOPERATIVE KS ABLT OPN LIVER TMR RF KS CHOLECYSTECTOMY KS COLECTOMY PARTL W ANASTOMOSIS KS COLECTOMY PARTL CLPRCT&COLSTMY HEPATIC ARTERY INFUSION PUMP PLACEMENT MULTIPLE WEDGE RESECTIONS LIVER ULTRASOUND LIVER ABLATION LESION LIVER CHOLECYSTECTOMY SIGMOID COLECTOMY WITH ANASTOMOSIS Referral ID Status Reason Start Date Expiration Date Visits Re quested Visits Authorized [id number] 1 1 Encounter Details Date Type Department Care Team (Late st Contact Info) Description 03/29/2024 6:00 AM CDT - 04/03/2024 1:22 PM CDT Hospital Encounter [facility], [facility], Fifth Floor [address] [place] [address] Chris Viera D.O., M.B.A. 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) (Primary Dx); Malignant Neoplasm Of Rectum (HCC); Secondary Malignant Neoplasm Liver (HCC) Discharge Disposition: Home or Self Care Social History Tobacco Use Types Packs/Day Years Used Date Smoking Tobacco: Former Cigarettes 1 - 08/18/2015 Smokeless Tobacco: Never Alcohol Use Standard Drinks/Week Comments Not Currently 0 (1 standard drink = 0.6 oz pur e alcohol) [facility] Utilities Answer Date Recorded In the past 12 months has [employer], gas, oil, or water [email or web address] threatened to shut off services in your [...] Answer Date Recorded PHQ-2 Score 1 11/25/2023 [facility] - [...] Master's degree (e.g., MA, MS, Aba, MEd, PULP PILER, GAMALIEL) 08/15/2019 Sex and Gender Information Value Date Recorded Sex Assigned at Male 09/09/2023 12:48 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 Gender Identity Male 08/15/2019 2:16 PM CDT Sexual Orientation Straight 08/15/2019 2: 16 PM CDT documented as of this encounter Last Filed Vital Signs Vital Sign Reading Time Taken Comments Blood Pressure 138/112 04/03/2024 12:56 PM CDT Pulse 83 04/03/2024 12:56 PM CDT Temperature 36.9 ??C (98.4 ??F) 04/03/2024 1 2:56 PM CDT Respiratory Rate 15 04/03/2024 1:06 PM CDT Oxygen Saturation 98% 04/03/2024 12: 56 PM CDT Inhaled Oxygen Concentration - - Weight 98.3 kg (216 lb 11.4 oz) 04/03/2024 9:27 AM CDT Height 172.7 cm (5' 8) 03/29/2024 6:22 AM CDT Body Mass Index 32.95 03/29/2024 6:22 AM CDT documented in this encounter Discharge Summaries * Genesis Suresh, Amy - 04/03/2024 1:22 PM CDT Images from the original note were not included. DISCHARGE SUMMARY BRIEF OVERVIEW Hospital: [facility] Discharge Provider: Chris Viera D.O. Primary Care Providers: Kayla Rowland APRN CSolitarioNSolitarioPSolitario (General) [address] [place] [phone] Primary Care Provider Primary Care Provider Admission Date: 03/29/2024 Discharge Date: 04/03/2024 PRINCIPAL DIAGNOSIS Secondary Malignant Neoplasm Liver (HCC) SECONDARY DIAGNOSES Principal Problem: Secondary Malignant Neoplasm Liver (HCC) Active Problems: Malignant Neoplasm Of Rectum (HCC) Post Operative Nausea/Vomiting Obesity Body Mass Index 30-39.9 Adult Retention Urinary Hypokalemia Hypomagnesemia Hypophosphatemia Resolved Problems: * No resolved hospital problems. * Surgery Information This Encounter Past Procedures (04/04/2023 to Today) Date Procedures Providers Loc / Dept 03/29/2024 HEPATIC ARTERY INFUSION PUMP PLACEMENT., MULTIPLE WEDGE RESECTIONS LIVER., ULTRASOUND LIVER., ABLATION LESION LIVER., CHOLECYSTECTOMY., RESECTION LOW ANTERIOR WITH ANASTOMOSIS., CONSTRUCTION ILEOSTOMY., SIGMOIDOSCOPY FLEXIBLE Chris Viera D.O., M.B.AEloy Telles M.D.Lakshmi Narasimhan, Avantika, M.B.BSolitarioSRubi Reed M.D.Perry, William R, M.B., Ch.B., M.P.H.Salvador Ferreira M.D.Christenson, Rachel V., D.O. RST ROMB OR DISCHARGE DISPOSITION Home or Self Care [1] ACTIVE ISSUES REQUIRING FOLLOW UP 1. Anticoagulation plan: None needed 2. Proton pump inhibitor: Pantoprazole once daily until otherwise directed by Dr. Headley's team 3. Follow up plan: - Return as scheduled on 04/05 for your nuclear medicine pump study, return in [address] scan and clinic visit with Dr. Viera's advanced practitioners - if you were still requiring intermittent self catheterizations 1 week after discharge, please letus know and we will arrange for outpatient urology follow up. 4. Antibiotic plan: None needed 5. Drain plan: Drain removed before discharge 6. Nutrition plan: Regular diet OUTPATIENT FOLLOW UP Scheduled Appointments 04/05/2024 10:30 AM NM ROCH [address] RM 02 Radiology 04/05/2024 1:00 PM ONC CHAIR CHEMO OVERFLOW [facility] Oncology 04/12/2024 1:00 PM ONC CHAIR CHEMO OVERFLOW [facility] Oncology 04/26/2024 8:40 AM REUBEN ZIMMERMAN ROEI Infusion Therapy 04/26/2024 10:40 AM Patsy Bowser APRN, C.N.P., M.S. Oncology 04/26/2024 11:20 AM ONC NURSE JOSEFA BAILEY [facility] Oncology 04/26/2024 1:45 PM ONC CHAIR CHEMO 33 [facility] Oncology 05/10/2024 7:20 AM Patsy Bowser APRN, C.N.P., M.S. Oncology 05/10/2024 8:45 AM ONC CHAIR CHEMO 32 [facility] Oncology For appointment details refer to your Patient Appointment Guide. TEST RESULTS PENDING AT DISCHARGE Pending Labs Order Current Status Pathology Exempt Research Only Collected (03/29/24 1243) DETAILS OF HOSPITAL STAY REASON FOR ADMISSION Malignant Neoplasm Of Rectum (HCC) Secondary Malignant Neoplasm Liver (HCC) HOSPITAL COURSE G2 [id number] metastatic colorectal adenocarcinoma status post exploratory laparotomy, multiple liver wedge resections, multiple liver ablation, cholecystectomy, low anterior resection with anastomosis, diverting loop ileostomy, hepatic artery infusion pump placement, 03/29/2024 . The patient was admitted to [facility]. The patient was taken to theoperating room where they underwent the above procedure. The patient tolerated the procedure well. After a brief stay in the postanesthesia care unit, the patient was transferred to the general surgical floor. Throughout the hospitalization, pain was well managed with IV and oral pain medications. At the time of discharge, the patient was tolerating a general diet, and pain was controlled on oralpain medication alone. The surgical drain was removed before the time of discharge. OPERATIVE PROCEDURE Procedure(s) (LRB): HEPATIC ARTERY INFUSION PUMP PLACEMENT. (N/A) MULTIPLE WEDGE RESECTIONS LIVER. (N/A) ULTRASOUND LIVER. (N/A) ABLATION LESION LIVER. (N/A) CHOLECYSTECTOMY. (N/A) RESECTION LOW ANTERIOR WITH ANASTOMOSIS. (N/A) CONSTRUCTION ILEOSTOMY. (N/A) SIGMOIDOSCOPY FLEXIBLE (N/A) FINAL PATHOLOGY FINAL DIAGNOSIS A. Portion of seminal vesicle, [...] resection: Hyalinized granuloma; negative for tumor. See comment. Comment: Special stains for AFB and GMS are negative [...] identified Lymphatic and / or Vascular Invasion: Present, extramural and intramural large venous and small vessel Perineural Invasion: Present Tumor Budding: Not applicable Number of Tumor Buds in 1 hotspot field: Not applicable Tumor Severy Score: Not applicable Treatment Effect: Present, with residual cancer showing evident tumor regression, but more than single cells or rare small groups of cancer cells (partial response, score 2) Margin Status All Margins Negative for Invasive Carcinoma Closest Margin(s) to Invasive Carcinoma: Radial Distance from Invasive Carcinoma to Closest Margin: 1.2 cm Distance from Invasive Carcinoma to Radial (Circumferential) Margin: Distance already reported as closest margin Distance from Invasive Carcinoma to Distal Margin: 6.5 cm Margin Status for Non-Invasive Tumor: All margins negative for high-grade dysplasia Regional Lymph Nodes Status Tumor Present in Regional Lymph Node(s) Number of Lymph Nodes with Tumor: 3 Number of Lymph Nodes Examined: 54 Tumor Deposits: Present, 5 Distant Metastasis. Distant Site(s) Involved: Liver Pathologic Staging (AJCC, 8th edition) Modified Classification: y (posttreatment) pT Category: pT4 T Suffix: Not applicable pN Category: pN1b pM Category: pM1a Additional Pathologic Findings: None identified Best Tumor Block for Ancillary Testing: Block B4 (DNA mismatch repair status previously reported) The synoptic report incorporates information from all relevant surgical material and includes all required data elements of the current CAP Cancer Protocol. Participated in the Interpretation Porsche Holbrook M.D.-Pathology Fellow Report electronically signed by Mera Song M.D., Ph.D. I verify that I have examined all relevant slides/materials for the specimen(s) and rendered or confirmed the diagnosis. Frozen Intraoperative Report A. Soft tissue, portion of left seminal vesicle, excision: Negative for tumor. B. Rectum and sigmoid colon, low anterior resection: Residual adenocarcinoma within a tumor bed extending into the perirectal adipose tissue and to the anterior serosa. The resection margins are negative for tumor. Closest margin is 1.2 cm to radial. Tumor is 6.5 cm to the distal margin. A perirectal tumor deposit is identified. E. Liver, portion caudate, wedge resection: Involved by adenocarcinoma. Surgical margins are negative for tumor. F. Liver, segment NELLY, wedge resection: Involved by adenocarcinoma. Surgical margins are negative for tumor. G. Liver, segment VII, wedge resection: involved by adenocarcinoma. Surgical margins are negative for tumor. I. Lymph node, portocaval, biopsy: A single (1) lymph node is negative for tumor. J. Liver, segment VII No. 2, wedge resection: Hyalinized nodule, negative for tumor, favor calcified granuloma. ADDITIONAL DIAGNOSES Urinary Retention The catheter was removed from the bladder. The patient had ongoing urinary retention requiring intermittent in and out catheterization. He was taught how to self catheterize at home. If he is still having urinary retention requiring self catheterization, he will call us to arrange outpatient neurology follow up. Hypokalemia Hypomagnesemia Hypophosphatemia The patient's electrolytes were monitored and repleted as indicated throughout their hospitalization. 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 The patient's home medications were restarted as indicated. CONSULTS ORDERED DURING THIS ADMISSION IP CONSULT TO OSTOMY CARE CONDITION AT DISCHARGE stable Discharge instructions were provided to the patient and caregiver(s). Total time spent in discharge services today: 45 minutes. documented in this encounter Discharge Instructions * Attachments The following attachments cannot be sent through Care Everywhere. * Ibuprofen (By mouth) (Cymro) * Lidocaine (On the skin) (Cymro) * Lidocaine/Prilocaine (On the skin) (Cymro) * Magnesium Oxide (By mouth) (Cymro) * Methocarbamol (By mouth) (Cymro) * Oxycodone, Rapid Release (By mouth) (Cymro) * Pantoprazole (By mouth) (Cymro) * Prochlorperazine (By mouth) (Cymro) * Tamsulosin (By mouth) (Cymro) documented in this encounter Medications at Time [...] mg total) by mouth daily. 90 tablet 12/23/2022 05/09/2024 lidocaine (LIDODERM) 5 % adhesive [...] oxyCODONE (ROXICODONE) 5 mg immediate release tabletIndications:Ac [place] Pain Exception Take 1 tablet (5 mg total) by mouth every 3 (three) hours as needed for moderate pain or score 4-6 of 10 Indication: Acute Pain Exception. 40 tablet 04/03/2024 05/08/2024 tamsulosin (FLOMAX) 0.4 mg 24 hr capsule Take 1 capsule (0.4 mg total) by mouth daily. 30 capsule 1 04/03/2024 05/20/2024 documented as of this encounter Progress Notes * Doris Sainz M.B.BSolitarioS. - 04/03/2024 7:29 AM CDT SUBJECTIVE Postop Day: 5 Days Post-Op Hospital Day: LOS: 5 days Brief Summary: 43M s/p HAIP, liver wedges x4 and ablations x4, LAR with anastomosis and DLI on 03/29 for metastaticCRC. Interval Events: No acute events overnight. Afebrile and hemodynamically stable on room air. Pain control improved. Gas and stool seen in stoma bag. Tolerating regular diet without nausea or emesis. Has not been ableto spontaneously void since siegel catheter came out, has been requiring straight caths. Ambulating.Serosanguinous drain output. OBJECTIVE Vitals Temperature: [36.8 ??C-37.1 ??C] 36.8 ??C Resp Rate: [15-16] 16 Blood Pressure: (135-148)/(92-110) 148/110 SpO2: [95 %-97 %] 97 % Weight: [98.3 kg] 98.3 kg BMI (Calculated): [33 kg/m??] 33 kg/m?? Pulse Rate: [71-94] 77 I/O Date 04/02/24 07 - 04/03/24 0659 04/03/24699 - 04/04/24 0659 Shift 6553-1116 8490-5531 3685-4086 24 Hour Total 8460-6650 8324-6307 2160-1831 24 Hour Total INTAKE P.O. 640 240 880 Shift Total(mL/kg) 640(6.2) 240(2.3) 880(9) OUTPUT Urine(mL/kg/hr) 650(0.8) 1000(1.2) 400(0.5) 2050(0.9) Intermittent Catheter: No Void/Retention (mL) 650 6072 540 0258 Drains 35 15 10 60 Stool 25 25 Shift Total(mL/kg) 710(6.9) 1015(9.9) 410(4.2) 2135(21.7) [facility] -775 -732 -1152 Weight (kg) 103 103 98.3 98.3 98.3 98.3 98.3 98.3 Labs Labs Reviewed 3.3 \ 11.3 / 138 / 33.7 \ 139 102 11 / 99 3.6(S) ; -- (P) 25 0.80 \ Physical Exam: General: No acute distress, AAO x3 Abdomen: Soft, appropriate post-op tenderness, non-distended. PARMINDER drain with serosanguinous output. Ileostomy bag with gas and stool seen. Midline laparotomy incision c/d/i ASSESSMENT / PLAN #1 Secondary Malignant Neoplasm Liver (HCC) #2 Malignant Neoplasm Of Rectum (HCC) #3 Post Operative Nausea/Vomiting #4 Obesity Body Mass Index 30-39.9 Adult #5 Retention Urinary #6 Hypokalemia #7 Hypomagnesemia #8 Hypophosphatemia Assessment 43M s/p HAIP, liver wedges x4 and ablations x4, LAR with anastomosis and DLI on 03/29 for metastaticCRC. Overall progressing well. No acute events overnight. Afebrile and hemodynamically stable on room air. Pain control improved. Gas and stool seen in stoma bag. Tolerating regular diet without nausea or emesis. Has not been ableto spontaneously void since siegel catheter came out, has been requiring straight caths. Ambulating.Serosanguinous drain output. Plan Discharge today Remove PARMINDER drain per CRS No anticoagulation at [place] [facility] Please page [phone] ([facility]) with any questions. Plan and assessment were discussed with Dr. Viera, who was in agreement. JOHN Corrales PGY-1 General Surgery * Doris Sainz M.B.BSolitarioS. - 04/02/2024 7:17 AM CDT SUBJECTIVE Postop Day: 4 Days Post-Op Hospital Day: LOS: 4 days Brief Summary: 43M s/p HAIP, liver wedges x4 and ablations x4, LAR with anastomosis and DLI on 03/29 for metastaticCRC. Interval Events: No acute events overnight. Afebrile and hemodynamically stable on room air. Complains of 8/10 pain this morning. Scheduled Toradol was DC'd yesterday and he has been having pain since. Gas and stool seen in stoma bag. Tolerating regular diet without nausea or emesis. Has not been able to spontaneously void since siegel catheter came out, has been requiring straight caths. iVAC was removed yesterday. Ambulating. OBJECTIVE Vitals Temperature: [36.9 ??C-37 ??C] 36.9 ??C Resp Rate: [15-17] 16 Blood Pressure: (139-155)/(92-110) 146/99 SpO2: [95 %-97 %] 97 % Weight: [103 kg] 103 kg BMI (Calculated): [34.5 kg/m??] 34.5 kg/m?? Pulse Rate: [74-87] 74 I/O Date 04/01/24 07 - 04/02/24 0659 04/02/24 07 - 04/03/24 0659 Shift 2396-7146 1032-0877 9519-8381 24 Hour Total 4464-4115 3593-3188 5961-6362 24 Hour Total INTAKE P.O. 120 005 182 8478 Shift Total(mL/kg) 120(1.2) 700(6.9) 750(7.3) 1570(15.2) OUTPUT Urine(mL/kg/hr) 1000(1.2) 1575(1.9) 600(0.7) 3175(1.3) Urine 175 175 Intermittent Catheter: No Void/Retention (mL) 1000 8581 397 5516 Drains 48 35 20 103 Stool 350 150 150 650 Shift Total(mL/kg) 1398(13.8) 1760(17.4) 770(7.5) 3928(38.1) [facility] -1278 -1060 -20 -2598 Weight (kg) 101.3 101.3 103 103 103 103 103 103 Labs Labs Reviewed 2.9 \ 11.1 / 129 / 32.7 \ 141 103 8 / 97 3.6(S) ; -- (P) 26 0.73 \ Physical Exam: General: No acute distress, AAO x3 Abdomen: Soft, appropriate post-op tenderness, non-distended. PARMINDER drain with serosanguinous output. Ileostomy bag with gas and stool seen. Midline laparotomy incision c/d/i ASSESSMENT / PLAN #1 Secondary Malignant Neoplasm Liver (HCC) #2 Malignant Neoplasm Of Rectum (HCC) #3 Post Operative Nausea/Vomiting #4 Obesity Body Mass Index 30-39.9 Adult #5 Retention Urinary #6 Hypokalemia #7 Hypomagnesemia #8 Hypophosphatemia Assessment 43M s/p HAIP, liver wedges x4 and ablations x4, LAR with anastomosis and DLI on 03/29 for metastaticCRC. Overall progressing well. No acute events overnight. Afebrile and hemodynamically stable on room air. Complains of 8/10 pain this morning. Scheduled Toradol was DC'd yesterday and he has been having pain since. Gas and stool seen in stoma bag. Tolerating regular diet without nausea or emesis. Has not been able to spontaneously void since siegel catheter came out, has been requiring straight caths. iVAC was removed yesterday. Ambulating. Plan Add Ibuprofen and Flexeril Straight caths as needed for voiding I&O catheterization teaching for dispo planning Encourage mobilization Discharge later today vs tomorrow pending adequate pain control Patient is being cared for by the [facility] team. Please page [phone] ([facility]) with any questions. Plan and assessment were discussed with Dr. Viera, who was in agreement. JOHN Corrales PGY-1 General Surgery * Susu Almanza D.O. - 04/01/2024 9:46 AM CDT SUBJECTIVE Today he is POD#3 from LAR w/ anastomosis and DLI, Hepatic artery infusion pump placement, Liver wedge resection + ablation. Having nausea this morning and did not take in much p.o. intake yesterday due to nausea. Ostomy appears healthy and functioning well with soft stool output. PARMINDER drain with 45 cc sanguinous output. Hemoglobin slightly decreased from 12.3 yesterday to 10.6 this morning. Patient is ambulating 3 times a day and has been weaned off nasal cannula. OBJECTIVE Temperature: [36.7 ??C-36.9 ??C] 36.9 ??C Resp Rate: [14-18] 16 Blood Pressure: (136-155)/(84-110) 155/110 SpO2: [95 %-100 %] 95 % Pulse Rate: [76-93] 76 Vitals signs reviewed. Hemodynamically stable and afebrile. PHYSICAL EXAMINATION General Appearance: Alert and orientated. No acute distress. Pleasant. Abdomen: soft, minimal tenderness to palpation, nondistended DIAGNOSTICS Labs reviewed. The WBC 3.1, hemoglobin 10.6 (12.3) ASSESSMENT / PLAN #1 Secondary Malignant Neoplasm Liver (HCC) #2 Malignant Neoplasm Of Rectum (HCC) #3 Post Operative Nausea/Vomiting #4 Obesity Body Mass Index 30-39.9 Adult #5 Retention Urinary #6 Hypokalemia #7 Hypomagnesemia #8 Hypophosphatemia 43yo male with history of rectal Neoplasm w/ mets to Liver. Hospital day #3, 3 Days Post-Op from LAR w/ anastomosis and DLI, Hepatic artery infusion pump placement, Liver wedge resection + ablation. Ostomy is functioning appropriately with soft stool output, main complaint is nausea. PLAN: - Enhanced Recovery protocol -General diet with no restrictions -Encourage deep breathing and frequent ambulation - monitor ostomy output - PARMINDER drain can be removed postop day 5 or once less than 30cc output - At time of discharge we will arrange followup in approximately 4-6 weeks Caprini Score = 10 * Doris Sainz M.B.B.S. - 04/01/2024 7:12 AM CDT SUBJECTIVE Postop Day: 3 Days Post-Op Hospital Day: LOS: 3 days Brief Summary: 43M s/p HAIP, liver wedges x4 and ablations x4, LAR with anastomosis and DLI on 03/29 for metastaticCRC. Interval Events: No acute events overnight. Afebrile and hemodynamically stable on room air. Feels better this morning. Pain control is adequate. Gas and stool seen in stoma bag. Tolerating regular diet without nausea or emesis. Has not been able to spontaneously void since siegel catheter came out, has been requiring straight caths. Ambulating. OBJECTIVE Vitals Temperature: [36.7 ??C-37.2 ??C] 36.9 ??C Resp Rate: [14-18] 18 Blood Pressure: (136-146)/(84-95) 139/84 SpO2: [95 %-100 %] 98 % Weight: [101 kg] 101 kg BMI (Calculated): [34 kg/m??] 34 kg/m?? Pulse Rate: [81-93] 93 I/O Date 03/31/24 0700 - 04/01/24 0659 04/01/24 0700 - 04/02/24 0659 Shift 3641-0725 7070-9587 9974-7582 24 Hour Total 7051-4106 6391-8537 7862-3704 24 Hour Total INTAKE P.O. 904 872 2071 Shift Total(mL/kg) 720(7.1) 300(3) 1020(10.1) OUTPUT Urine(mL/kg/hr) 400(0.5) 1200(1.5) 1600(0.7) Urine 0 0 Intermittent Catheter: No Void/Retention (mL) 400 1200 1600 Drains 25 20 45 Stool 150 150 300 Shift Total(mL/kg) 425(4.2) 1370(13.5) 150(1.5) 1945(19.2) NET 295 1070 -150 -925 Weight (kg) 101.3 101.3 101.3 101.3 101.3 101.3 101.3 101.3 Labs Labs Reviewed 3.1 \ 10.6 / 103 / 31.6 \ 141 104 7 / 97 3.9(S) ; -- (P) 29 0.78 \ Physical Exam: General: No acute distress, AAO x3 Abdomen: Soft, appropriate post-op tenderness, non-distended. PARMINDER drain with serosanguinous output. Ileostomy bag with gas and stool seen. Midline laparotomy with incisional VAC set to LCS at -125 mmHg with appropriate seal. 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 Overall progressing well. No acute events overnight. Afebrile and hemodynamically stable on room air. Feels better this morning. Pain control is adequate. Gas and stool seen in stoma bag. Tolerating regular diet without nausea or emesis. Has not been able to spontaneously void since siegel catheter came out, has been requiring straight caths. Ambulating. Hgb 10.6 (12.3), but observed drop in all cell lines. Drain output appears more sanguinous than serous. Plan Repeat AM Hgb given Hgb drop last night Straight caths as needed for voiding I&O catheterization teaching for dispo planning iVAC off POD5 Encourage mobilization Patient is being cared for by the [facility] team. Please page [phone] ([facility]) with any questions. Plan and assessment were discussed with Dr. Viera, who was in agreement. JOHN Corrales PGY-1 General Surgery * yAesha Peralta R.N., ON - 03/31/2024 1:13 PM CDT WOC RN attempted to visit patient for Day 2 education ileostomy. Patient is eating lunch. Visitors state another [facility] RN has attempted twice today. As three attempts have been made will return tomorrow for education. * Susu Almanza D.O. - 03/31/2024 7:49 AM CDT SUBJECTIVE Mr. 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 Today he is POD#2 fromLAR w/ anastomosis and DLI, Hepatic artery infusion pump placement, Liver wedge resection + ablation. He is tolerating a regular without nausea and vomiting. 50cc of mixed black and bilious liquid output. PARMINDER drain going to pelvis has 130cc sanguinous output. Hemoglobin is stable at 12. White count normal at 5.6. Remains on 1L NC, otherwise hemodynamically stable with no acute events overnight. Abdominal pain to palpation is more significant this morning, however he is appropriately tender post-surgery. OBJECTIVE Temperature: [36.8 ??C-37.7 ??C] 37.2 ??C Resp Rate: [16-18] 17 Blood Pressure: (111-146)/(70-93) 144/93 SpO2: [89 %-100 %] 100 % Flow Rate (L/min): [1 L/min] 1 L/min Pulse Rate: [57-81] 81 Vitals signs reviewed. Hemodynamically stable and afebrile. PHYSICAL EXAMINATION General Appearance: Alert and orientated. No acute distress. Pleasant. Abdomen: soft, tender to palpation, mild distension DIAGNOSTICS LABORATORY: Labs reviewed. No clinically significant lab results. 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 PLAN: - Enhanced Recovery protocol -General diet with no restrictions -Encourage deep breathing and frequent ambulation, wean off oxygen as able - improve pain control - monitor ostomy output - maintain PARMINDER drain and wound vac - At time of discharge we will arrange followup in approximately 4-6 weeks Caprini Score = 10 * Doris Sainz M.B.BSolitarioS. - 03/31/2024 6:44 AM CDT SUBJECTIVE Postop Day: 2 Days Post-Op Hospital Day: LOS: 2 days Brief Summary: 43M s/p HAIP, liver wedges x4 and ablations x4, LAR with anastomosis and DLI on 03/29 for metastaticCRC. Interval Events: No acute events overnight. Afebrile and hemodynamically stable on room air. Complains of pain this morning. Frequency of Oxycodone was increased and scheduled Toradol was added to his pain regimen. Minimal brown liquid seen in stoma bag. Tolerating regular diet without nausea or emesis. Has not been able to spontaneously void since siegel catheter came out yesterday, has been requiring straight caths since then. Ambulating. OBJECTIVE Vitals Temperature: [36.8 ??C-37.7 ??C] 37.2 ??C Resp Rate: [16-18] 18 Blood Pressure: (111-146)/(70-91) 140/90 SpO2: [89 %-97 %] 94 % Flow Rate (L/min): [1 L/min] 1 L/min Pulse Rate: [57-81] 72 I/O Date 03/30/24699 - 03/31/2465803/31/24 07 - 04/01/24 0659 Shift 1469-0145 4358-0596 3313-7163 24 Hour Total 4148-5857 0362-3482 0953-2081 24 Hour Total INTAKE P.O. 1000 1000 2000 Shift Total(mL/kg) 1000(9.8) 1000(9.8) 2000(19.6) OUTPUT Urine(mL/kg/hr) 450(0.6) 1350(1.7) 800 2600 Urine 350 350 Intermittent Catheter: No Void/Retention (mL) 7679 419 5485 Output (mL)- Urine ([REMOVED] Indwelling Urinary Catheter Coude 14 Fr.) 450 450 Drains 45 70 15 130 Stool 50 0 50 Shift Total(mL/kg) 545(5.3) 1420(13.9) 815(8) 2780(27.2) NET 174 -726 -567 -310 Weight (kg) 102.1 102.1 102.1 102.1 102.1 102.1 102.1 102.1 Labs Labs Reviewed 5.7 \ 12.3 / 142 / 36.9 \ 137 100 11 / 117 3.5(S) ; -- (P) 26 0.77 \ Physical Exam: General: No acute distress, AAO x3 Abdomen: Soft, appropriate post-op tenderness, non-distended. PARMINDER drain with serosanguinous output. Ileostomy bag with minimal brown liquid. Midline laparotomy with incisional VAC set to LCS at -125 mmHg with appropriate seal. 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 Overall progressing well. No acute events overnight. Afebrile and hemodynamically stable on room air. Complains of pain this morning. Frequency of Oxycodone was increased and scheduled Toradol was added to his pain regimen. Minimal brown liquid seen in stoma bag. Tolerating regular diet without nausea or emesis. Has not been able to spontaneously void since siegel catheter came out yesterday, has been requiring straight caths since then. Ambulating. Plan Monitor pain and modify regimen as required Straight caths as needed for voiding iVAC off POD5 Encourage mobilization Patient is being cared for by the [facility] team. Please page [phone] ([facility]) with any questions. Plan and assessment were discussed with Dr. Viera, who was in agreement. JOHN Corrales PGY-1 General Surgery * Tej Quintanilla M.B., Ch.B., M.P.H. - 03/30/2024 5:20 PM CDT I saw Brian on mays round this evening, day 1 post open low anterior resection with diverting loop ileostomy alongside his liver surgery and placement of a pump. He is doing well with no specific concerns. We discussed the operation in detail including the initial pathological findings. From my perspective, he can continue on an enhanced recovery protocol. There are no dietary restrictions, but I have encouraged him to eat small amounts more frequently and stop should he become nauseated or distended. We will arrange followup in approximately 4-6 weeks. Pending postoperative chemotherapy plans,we will also look to schedule his ileostomy reversal. Please do not hesitate to contact me at any stage should there be any concerns in his postoperative recovery. Rosa Alarcon, Rich, M.P.H. CT CT Job ID: [id number]/las * Favian Lopez M.S.N., R.N., [facility] - 03/30/2024 10:23 AM CDT SUBJECTIVE REASON FOR VISIT Postoperative visit Patient Coping: Appropriate and Overwhelmed. Fiancee Suresh supportive and present. She will be doing pouching changes. OBJECTIVE Physical Exam Ostomy (NEW) Ileostomy RLQ (Active) Site Assessment Red;Budded Stoma Size 1-1/8 Skin Assessment Intact Skin Care Water Pouching System (Stomal Appliance) Status Changed Changed by Wound raw shellfish preparer;Family;Observed Suresh observed. Patient looked occasionally but he is still trying to cope with the new stoma. He did observe with the mirror. Suresh very supportive and willing. Pouching System Removed OR system Pouching System Applied Aurelia [phone] Patient may need convexity in the near future once abdomen softens. Ongoing management Nursing;Patient/caregiver;Wound/mat sewer Output Description Stool Stool Output (mL) 50 mL ASSESSMENT / PLAN [facility] nurse continuing to follow. Day 1 teach complete Page [facility] [phone] M-F 6:30AM-2:30PM with questions or leakage issues. Thursday pager [phone] 8:00AM-2:30PM. * Fiona Pierre Pharm.D., R.Ph., BCPS - 03/30/2024 10:14 AM CDT Pharmacist Progress Note Reason for admission: s/p hepatic artery infusion pump placement, multiple wedge resections liver, ablation lesion liver, cholecystectomy, resection low anterior with anastomosis, construction ileostomy 03/29 PMH: Depression, HTN, malignant neoplasm of colon, secondary malignant neoplasm of liver, malignantneoplasm of rectum, peripheral neuropathy OBJECTIVE Home medications: Held: amlodipine Changed: none Prophylaxis: Heparin 5000 units TID ASSESSMENT / PLAN Exparel given 03/29. Intrathecal hydromorphone also given yesterday, 24 hours has since passed so further pain management per primary service. Pain 01/26 this morning. Medications and laboratory data have been reviewed. Pharmacy will continue to follow for medicationuse optimization. Fiona Pierre Pharm.D., R.Ph., BCPS * Susu Almanza V. D.OSolitario - 03/30/2024 7:28 AM CDT SUBJECTIVE Mr. 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 Today he is POD#1 fromLAR w/ anastomosis and DLI, Hepatic artery infusion pump placement, Liver wedge resection + ablation. No return of bowel function. PARMINDER drain goes to pelvis and has 135cc sanguinous output. Hemoglobin is stable at 11.3. Mildly bradycardic with HR 50-60s, on 1L NC, otherwise hemodynamically stable with no acute events overnight. Mild pain to palpation of the abdomen. Has not tried regular diet yet, but tolerating sips of clears. OBJECTIVE Temperature: [36.2 ??C-37.5 ??C] 37.5 ??C Heart Rate: [62-82] 77 Resp Rate: [12-22] 16 Blood Pressure: (104-117)/(56-90) 112/69 Arterial Line BP: (124-152)/(65-76) 135/66 SpO2: [92 %-100 %] 95 % Flow Rate (L/min): [1 L/min-2 L/min] 1 L/min Pulse Rate: [49-119] 56 Vitals signs reviewed. Hemodynamically stable and afebrile. PHYSICAL EXAMINATION General Appearance: Alert and orientated. No acute distress. Pleasant. Abdomen: Soft, nondistended, nontender to palpation. , and appropriate post-op tenderness. DIAGNOSTICS LABORATORY: Labs reviewed. No clinically significant lab results. 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 PLAN: - Enhanced Recovery protocol -General diet -Encourage deep breathing and frequent ambulation - monitor ostomy output - maintain PARMINDER drain and wound vac Caprini Score = 10 Will discuss DVT prophylaxis discharge plan with surgeon. * Doris Sainz M.B.B.S. - 03/30/2024 7:27 AM CDT SUBJECTIVE Postop Day: 1 Day Post-Op Hospital Day: LOS: 1 day Brief Summary: 43M s/p HAIP, liver wedges x4 and ablations x4, LAR with anastomosis and DLI on 03/29 for metastaticCRC. Interval Events: No acute events overnight. Afebrile and hemodynamically stable on room air. Pain is well controlledwith current medications. No gas/stool seen in stoma bag. Tolerating clear liquids without nausea or emesis. Voiding adequately, has siegel catheter in place. Has not mobilized out of bed yet. OBJECTIVE Vitals Temperature: [36.2 ??C-37.5 ??C] 37.5 ??C Heart Rate: [62-82] 77 Resp Rate: [12-22] 16 Blood Pressure: (104-117)/(56-90) 112/69 Arterial Line BP: (124-152)/(65-76) 135/66 SpO2: [92 %-100 %] 95 % Flow Rate (L/min): [1 L/min-2 L/min] 1 L/min Pulse Rate: [49-119] 56 I/O Date 03/29/24 07 - 03/30/24 0659 03/30/24 07 - 03/31/24 0659 Shift 4039-9815 7510-2517 9555-5453 24 Hour Total 5132-2254 1408-0460 6159-9150 24 Hour Total INTAKE P.O. 300 450 750 500 500 I.V.(mL/kg) 30(0.3) 30(0.3) Crystalloid Bolus 10 10 Maintenance IV 4200 700 753.8 5653.8 Intermittent Medications 350 100 450 Shift Total(mL/kg) 4590(45) 1100(10.8) 1203.8(11.8) 6893.8(67.5) 500(4.9) 500(4.9) OUTPUT Urine(mL/kg/hr) 400(0.5) 525(0.6) 650(0.8) 1575(0.6) Catheterized Urine 400 100 500 Preprocedure Void Time 1 x 1 x Output (mL)- Urine (Indwelling Urinary Catheter Coude 14 Fr.) 724 030 3985 Emesis or Enteric Tube 25 25 Drains 120 15 135 Stool 0 0 Blood 700 700 Shift Total(mL/kg) 1125(11) 645(6.3) 665(6.5) 2435(23.8) NET 3465 455 538.8 4458.8 500 500 Weight (kg) 102.1 102.1 102.1 102.1 102.1 102.1 102.1 102.1 Labs Labs Reviewed 5.6 \ 11.3 / 145 / 33.0 \ 137 103 13 / 117 4.4(S) ; -- (P) 25 0.84 \ Physical Exam: General: No acute distress, AAO x3 Abdomen: Soft, appropriate post-op tenderness, non-distended. PARMINDER drain with serosanguinous output. Ileostomy bag without gas or stool. Midline laparotomy with incisional VAC set to LCS at -125 mmHg with appropriate seal. 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 Overall doing well. Pain control is adequate. No gas/stool seen in stoma bag. Tolerating clearliquids without nausea or emesis. Voiding adequately, has siegel catheter in place. Has not mobilized out of bed yet. Plan ADAT Remove siegel catheter Encourage mobilization Patient is being cared for by the [facility] team. Please page [phone] ([facility]) with any questions. Plan and assessment were discussed with Dr. Viera, who was in agreement. JOHN Corrales PGY-1 General Surgery * Evelyn Alcantar, Pharm.D., R.Ph. - 03/29/2024 8:15 AM CDT Images from the original note were not included. Admission Medication History Note Adherence issues: No concerns Medication list source: Patient Prior to Admission Medications Med List Status: Pharmacy Complete Set By: Evelyn Alcantar, Pharm.D., R.Ph. at 03/29/2024 7:08 AM Taking? Last Dose Informant Start Date End Date LT amLODIPine (NORVASC) 5 mg tablet 03/28/2024 Self 02/08/24 -- TAKE 1 TABLET (5 MG TOTAL) BY MOUTH DAILY. bisacodyL (DULCOLAX) 5 mg EC tablet 03/28/2024 Self 03/24/24 -- Take 2 tabs (10 mg total) by mouth at 4pm and 9pm w/8 oz glass of any clear liquid. buPROPion XL (WELLBUTRIN XL) 300 mg 24 hr tablet 03/28/2024 Self 03/13/22 -- Take 1 tablet (300 mg total) by mouth every morning. dexAMETHasone (DECADRON) 4 mg tablet -- -- 10/22/23 -- Take 2 tablets (8 mg total) by mouth daily. Take daily for 3 days on Days 2,3,4 of each cycle. Patient not taking: Reported on 03/17/2024 dexAMETHasone (DECADRON) 4 mg tablet -- -- 01/01/24 -- Take 2 tablets (8 mg total) by mouth daily. Take daily for 3 days on Days 2,3,4 of each cycle. Patient not taking: Reported on 03/17/2024 fluocinonide (LIDEX) 0.05 % external solution -- Self 09/23/23 -- 1 Application 2 (two) times a day as needed for irritation, itching or rash (psoriasis). Apply to the scalp up to twice daily as needed for flares. heparin 100 unit/mL syringe () -- -- 09/25/23 11/19/23 infuse 5 mL (500 Units total) by intra-catheter route once as needed for line care for up to 1 dose. Flush IV line AFTER 0.9% Sodium Chloride flush Notes: Dispense with 10 mL syringe (with 5 mL fill). heparin 100 unit/mL syringe () -- -- 11/05/23 11/06/23 5 mL (500 Units total) by intra-catheter route once as needed for line care for up to 1 dose. FlushIV line AFTER 0.9% Sodium Chloride flush Notes: Dispense with 10 mL syringe (with 5 mL fill). heparin 100 unit/mL syringe () -- -- 11/19/23 11/20/23 Flush 5 mL (500 Units total) by intra-catheter route once as needed for line care for up to 1 dose.Flush IV line AFTER 0.9% Sodium Chloride flush Notes: Dispense with 10 mL syringe (with 5 mL fill). heparin 100 unit/mL syringe () -- -- 12/18/23 12/19/23 5 mL (500 Units total) by intra-catheter route once as needed for line care for up to 1 dose. FlushIV line AFTER 0.9% Sodium Chloride flush Notes: Dispense with 10 mL syringe (with 5 mL fill). heparin 100 unit/mL syringe () -- -- 01/01/24 01/02/24 5 mL (500 Units total) by intra-catheter route once as needed for line care for up to 1 dose. FlushIV line AFTER 0.9% Sodium Chloride flush Notes: Dispense with 10 mL syringe (with 5 mL fill). heparin 100 unit/mL syringe () -- -- 01/29/24 01/30/24 Infuse 5 mL (500 Units total) by intra-catheter route once as needed for line care. Flush IV line AFTER 0.9% Sodium Chloride flush Notes: Dispense with 10 mL syringe (with 5 mL fill). lamoTRIgine ER (LaMICtaL XR) 50 mg 24 hr tablet 03/28/2024 Self 12/23/22 -- Take 4 tablets (200 mg total) by mouth daily. LORazepam (ATIVAN) 0.5 mg tablet 03/28/2024 -- 12/03/23 -- Take 1 tablet (0.5 mg total) by mouth 3 (three) times a day as needed (prn nausea). medical cannabis oil inhalation -- Self -- -- Inhale as needed (nauesa and anxiety). THC component: 30 mg Patient does not need while in the hospital metroNIDAZOLE (FLAGYL) 500 mg tablet 03/28/2024 Self 03/24/24 -- Take 1 tablet by mouth at 4pm and 9pm with an 8 oz glass of any clear liquid. Take 1 tablet at 5am the day of surgery with a sip of clear liquid Patient taking differently: Take 1 tablet by mouth at 4pm and 9pm with an 8 oz glass of any clear liquid. Take 1 tablet at 5am the day of surgery with a sip of clear liquid *patient unable to take 5 am dose due to nausea* neomycin (MYCIFRADIN) 500 mg tablet 03/28/2024 Self 03/24/24 -- Take 2 tablets by mouth at 4pm and 9pm with 8 oz glass of any clear liquid. Take 2 tablets at 5am the day of surgery with a sip of clear liquid Patient taking differently: Take 2 tablets by mouth at 4pm and 9pm with 8 oz glass of any clear liquid. Take 2 tablets at 5am the day of surgery with a sip of clear liquid *patient did not take 5 am dose due to nausea OLANZapine (ZyPREXA) 5 mg tablet -- -- 02/08/24 02/07/25 TAKE 1 TABLET (5 MG TOTAL) BY MOUTH AT BEDTIME NEEDED (NAUSEA, VOMITING). MAY TAKE DOSE EARLY IFNEEDED. Patient not taking: Reported on 03/17/2024 ondansetron (ZOFRAN) 4 mg tablet 03/28/2024 Self 03/24/24 -- Take 1 tablet by mouth at 4pm and 9pm with an 8 oz glass of any clear liquid. Take 1 tablet at 5am the day of surgery with a sip of clear liquid Patient taking differently: Take 1 tablet by mouth at 4pm and 9pm with an 8 oz glass of any clear liquid. Take 1 tablet at 5am the day of surgery with a sip of clear liquid *unable to take 5 am dose due to nasuea* ondansetron (ZOFRAN) 8 mg tablet -- -- 09/22/23 09/21/24 Take 1 tablet (8 mg total) by mouth every 8 (eight) hours as needed for nausea or vomiting (unrelieved by prochlorperazine). Patient not taking: Reported on 03/17/2024 polyethylene glycol (MIRALAX) 17 gram/dose oral powder 03/28/2024 -- 03/24/24 -- Take 238 g by mouth as directed. Mix bottle in 64 oz clear liquid until dissolved; starting at 5pm drink 8 oz every 15 min until gone prochlorperazine (COMPAZINE) 10 mg tablet -- -- 09/22/23 09/21/24 Take 1 tablet (10 mg total) by mouth every 6 (six) hours as needed for nausea or vomiting. Patient not taking: Reported on 03/17/2024 tacrolimus (PROTOPIC) 0.1 % ointment Unknown Self 09/23/23 -- Apply 1 Application topically 2 (two) times a day as needed (psoriasis). triamcinolone (KENALOG) 0.1 % cream Unknown Self 06/01/23 -- Apply to affected area 1-2 times daily as needed. Patient taking differently: 4 (four) times a day as needed for irritation or rash (psoriasis). Apply to affected area four times daily as needed for psoriasis documented in this encounter Procedure Notes * Matt Cardona R.N. - 04/03/2024 9:56 AM CDTAssociated Order(s): Perform central line puller: De-access port Perform central line puller: De-access port Performed by: Matt Cardona R.N. Authorized by: Doris Sainz MSolitarioB.B.SSolitario Right chest ivad de-accessed after flushing with saline and heparin. documented in this encounter Nursing Notes * Andreea Darnell R.N. - 04/03/2024 1:07 PM CDT Problem: PAIN - ADULT Goal: PT VERBALIZES/DEMONSTRATES ADEQUATE COMFORT LEVEL OR BASELINE Outcome: Adequate for Discharge Problem: KNOWLEDGE DEFICIT Goal: Patient/family/caregiver demonstrates understanding of disease process, treatment plan, medications, and discharge instructions Outcome: Adequate for Discharge Problem: INFECTION - ADULT Goal: Absence of infection during hospitalization Outcome: Adequate for Discharge Problem: SKIN/TISSUE INTEGRITY Goal: Skin/Tissue integrity maintained or improved Outcome: Adequate for Discharge Goal: Oral and Nasal mucous membranes remain intact Outcome: Adequate for Discharge Problem: SAFETY ADULT Goal: Maintain a safe environment Outcome: Adequate for Discharge Problem: DISCHARGE PLANNING Goal: Patient discharge needs identified Outcome: Adequate for Discharge Problem: POTENTIAL OR ACTUAL PRESSURE INJURY-ADULT Goal: Manage sensory Perception deficits to maintain and/or improve skin integrity Outcome: Adequate for Discharge Goal: Maintain optimal skin moisture to ensure or improve skin integrity Outcome: Adequate for Discharge Goal: Achieve optimal activity and/or mobility to maintain or improve skin integrity Outcome: Adequate for Discharge Goal: Nutrient intake appropriate for improving, restoring or maintaining skin integrity Outcome: Adequate for Discharge Goal: Minimize friction and/or shear to maintain or improve skin integrity Outcome: Adequate for Discharge Problem: Compromised Skin Integrity Goal: Skin/Tissue integrity maintained or improved Outcome: Adequate for Discharge Goal: Oral and Nasal mucous membranes remain intact Outcome: Adequate for Discharge Goal: Incisions, wounds, or drain sites healing without S/S of infection Outcome: Adequate for Discharge Problem: Incontinence and/or Moisture Goal: Skin integrity is maintained or improved Outcome: Adequate for Discharge Problem: SAFETY ADULT - RISK FOR FALL AND OR FALL INJURY Goal: Patient remains free from fall/fall injury Outcome: Adequate for Discharge Shift Goals: Clinical Goals for the Shift: For patient to be medically stable to discharge home today. Identify possible barriers to meeting goals/advancing plan of care: Surgical pain, surgical complications End of Shift Summary: Patient was deemed medically ready for discharge by [facility] service. A&Ox3, vitally stable. Pain more controlled with PRN oxycodone today. Education completed for ostomy and straight cath'ing at home. Patient's significant other at bedside for all education and support. Chest port de- accessed. RN reviewed AVS at bedside with patient and all questions. All belongings packed up and patient went down via escort. * Lucas Hogan R.N. - 04/02/2024 7:02 AM CDT Shift Goals: Clinical Goals for the Shift: Pain control, GI/ status, adaquate rest, saftey Identify possible barriers to meeting goals/advancing plan of care: pain, urinary retention End of Shift Summary: Afebrile. Reports some effect w/ pain regimen. IV compazine for nausea w/ relief. Prn pvr and straight cath for urinary retention/inability to void q6. Ileostomy w/ good output.Rt parminder w/ serosang output. Awake in bed most of noc. Up to chair and BRP w/ Ax1 using podium walker,tolerated fairly well. Remains safe. * Maddie Ruiz R.N., SHAYY - 04/01/2024 3:24 PM CDT SUBJECTIVE REASON FOR VISIT Postoperative visit Patient Coping: Appropriate and Interested in learning ostomy cares Patient and fiance are doing well with learning cares. Patient states he knows a friend who is a retired stoma nurse and she has agreed to assist as needed. However, patient and fiance feel that theycan manage things independently. Patient is emptying pouch and demonstrated teachback on this. OBJECTIVE Physical Exam 04/01/24 1438 Ostomy (NEW) Ileostomy RLQ Placement Date: 03/29/24 Surgeon: Uriel Viera DO Type of Ostomy: Ileostomy Location: RLQ Site Assessment Budded;Red Stoma Size 1-1/8 Skin Assessment Sutures intact Skin Care Water Pouching System (Stomal Appliance) Status Changed (seal undermining cirucmferentially 0.2cm after 2 day wear time) Changed by Patient;Family;Wound raw shellfish preparer;Supervised Pouching System Removed Aurelia 02204 wafer, 7805 moldable barrier, 53260 pouch Pouching System Applied Aurelia 40128 wafer, 7805 moldable barrier, 38821 pouch Ongoing management Patient/caregiver;Nursing Output Description Soft;Brown Stool Output (mL) 100 mL ASSESSMENT / PLAN Consult complete, patient has met ostomy specialty service criteria. Patient will DC home self carethis weekend. mat sewer completed education with patient and fiance. Fiance demonstrated teachback with placing the pouch. They have 4 sets of supplies for DC. A DME for ostomy supplies is pended [facility] to sign at discharge. Page [facility] [phone] M-F 6:30AM-2:30PM with questions or leakage issues. Thursday pager [phone] 8:00AM-2:30PM. documented in this encounter OR Notes * Op Note - Chris Viera D.O., M.B.A. - 03/29/2024 9:06 AM CDT Pre-op Diagnosis Malignant Neoplasm Of Rectum (HCC),Secondary Malignant Neoplasm Liver (HCC) Post-op Diagnosis Malignant Neoplasm Of Rectum (HCC),Secondary Malignant Neoplasm Liver (HCC) PROCEDURE(S) Bilateral ultrasound-guided transversus abdominis plane block Exploratory laparotomy Low anterior resection with the anastomosis (Dictated by Colorectal) Hepatic artery infusion pump placement Liver wedge resection x4 (Segment 4a, VII, VII, and Caudate) Microwave ablation of the liver x4 Cholecystectomy FINDINGS Resection and ablation of all identifiable lesions. Successful placement of hepatic artery infusionpump in the GDA. Methylene blue test revealed bilobar perfusion with no extrahepatic perfusion. Pathology confirmed a margin negative resection all of the liver wedge resections. Microwave ablation of 4 subcentimeter lesions. COMPLICATIONS None DESCRIPTION OF PROCEDURE The patient was brought in to the operating room and placed on the operating table in synchronous position. Anesthesia was provided with a spinal and then general anesthesia was induced, and endotracheal intubation was performed. Siegel catheter was placed. Sequential compression devices were placedto the bilateral lower extremities. The patient received prophylactic medications as indicated. Theabdomen was prepped and draped in the usual sterile fashion followed by a pause, identifying the correct patient, date, site, and procedure. Bilateral ultrasound-guided transversus abdominis plane block were performed using ultrasound guidance with dilute liposomal bupivacaine injected bilaterally under direct ultrasonic vision. Colorectal surgery then proceeded with a midline laparotomy. There was no evidence of peritoneal metastasis. After completion of the low anterior resection and anastomosis we extended the laparotomy cephalad. We then performed intraoperative liver ultrasound with interpretation and saving of the images to the chart. Unfortunately due to the disappearing nature of the lesions and liver damage it was difficult to identify the lesions. A few palpable lesions were identified as well as a few intraparenchymalones but not follow up with the lesions correlating with imaging. I elected to fully mobilize the right and left lobe of the liver in a standard fashion to facilitate inspection and palpation. We proceeded with a wedge resection of the caudate lesion. In additional lesion in segment Nelly was resected with a wedge resection. A lesion segment 7 was also resected. His small superficial punctate lesion on the capsule of segment 7 was resected with a small wedge resection. He is performed with a Chery crush clamp technique and LigaSure with Aquamantys for hemostasis. Hillsdale maneuver was not required. There was no bleeding or bile leakage at the completion of the resections. Radiology then assisted with the intraoperative ultrasound of the ablation given the difficult to identify lesions. Four deeper lesions were identified and treated with microwave ablation. Please refer to their dictation for details. At the conclusion we again inspected the liver with both palpation and ultrasound. No additional lesions were identified. Multiple lesions seen on imaging were not able to be identified however we cleared all visible identifiable disease. We also performed a cholecystectomy. The cystic artery and cystic duct were identified. The critical view of safety was obtained. A top-down approach was then performed and the gallbladder was from the cystic plate completely. The cystic a rtery was ligated with silk ties and divided. The cystic duct was ligated with silk sutures and divided. A metal clip was placed on the stay side. Hemostasis in the gallbladder bed was confirmed. We then proceeded with our hepatic artery dissection and portal lymphadenectomy and vascular dissection to facilitate pump placement. The common hepatic artery lymph node was identified and resected and sent to pathology. The common hepatic artery was identified and encircled and >1 cm of TOM was skeletonized proximal to the GDA. Dissection was taken distally and the GDA was identified and diss ected free. This dissection was extended down to the level of the pancreas to facilitate pump placement into the GDA. The GDA was an appropriate size for pump placement. We then proceeded with additional distal dissection along the proper hepatic artery until we encountered the bifurcation of the right and left hepatic arteries at over 2 cm distal to the GDA. All branches were ligated with silk suture. The right gastric artery was ligated with silk suture and divided. Papaverine was placed on the gastroduodenal artery. At this point we had enough of dissection of facilitate pump placement andproceeded with back table preparation of the pump. Once the pump was warmed and emptied it was filled with 30 cc of high-dose heparin. The pump was confirmed to be functioning. The tubing was flushedwith low-dose heparin. The pump was soaked in antibiotic irrigation and brought onto the field. An incision was made in the left abdomen and dissection was taken down to the fascia. A pump pocket wascreated. Hemostasis was confirmed. No additional tissue needed to be resected from the pump pocket. Four 2-0 silk sutures were placed in the pump pocket in each corner for fixation. These were attached to the pump. The pump tubing was then passed through the pump pocket into the abdomen. The pump was sutured in place. We then proceeded to ligate the gastroduodenal artery distally using 2-0 silk suture. A bulldog wasplaced to occlude the common hepatic and proper hepatic artery. At this point arteriotomy was made in the distal GDA and the tubing was placed into the GDA. Silk sutures were tied to secure the tubing in place. The bulldog was removed. A total of 3 sutures were placed in addition to the distal GDA suture for ligation of the artery. Flow through the tubing was confirmed after placement of each suture and there was no issues with flow. At this point we proceeded with a perfusion test using 1% methylene blue diluted to half strength. There was bilobar perfusion of the liver. No retrograde perfusion. There was no extrahepatic perfusion. At this point the pump was again flushed with low-dose heparin. The pump pocket was closed in layers utilizing a running deep 2-0 Vicryl suture, interrupted 3-0 Vicryl deep dermal sutures and a 4-0 Monocryl subcuticular stitch. Dermabond was applied. A sterile dressing was placed over the lateral incision. Colorectal then proceeded to bring up a diverting loop ileostomy. The midline fascia was then closed with a running nonlooped PDS suture. Skin was closed with Monocryl subcuticular stitches. An incisional wound VAC was placed. Patient tolerated the procedure well. A first press operator actively participated and was necessary for one or more of the following: opening, exposure and visualization during the case, maintaining hemostasis, wound closure resulting in itssafe and expeditious completion. Chris Viera D.O., M.B.A. * Op Note - Tej Quintanilla M.B., Ch.B., M.P.H. - 03/29/2024 9:06 AM CDT Pre-op Diagnosis Malignant Neoplasm Of Rectum (HCC),Secondary Malignant Neoplasm Liver (HCC) Post-op Diagnosis Malignant Neoplasm Of Rectum (HCC),Secondary Malignant Neoplasm Liver (HCC) Student Development Advisor A first press operator actively participated and was necessary for one or more of the following: opening, exposure and visualization during the case, maintaining hemostasis, wound closure resulting in itssafe and expeditious completion. Findings Mid-upper rectal cancer with drop metastasis in cul-de-sac adjacent to left seminal vesicle R0 resection, complete TME This case was substantially more difficult than usual because of significant effort and difficulty mobilizing and identifying anatomical structures due to altered surgical field secondary to distorted anatomy and radiation.This case was substantially more difficult than usual because of difficult location and obesity. Complications None Operative Note Narrative Oncologic resection Location: rectum Case status: elective Operation: LAR Modality: open Location of tumor within rectum: high Height of lower edge of tumor from anal verge: 11 cm Mobilization of splenic flexure: Yes Level of ligation of inferior mesenteric artery: EFRAIN Level of ligation of the inferior mesenteric vein: high Level of rectal transection distal to distal edge of tumor (distal Margin): 6 cm Type of reconstruction: stapled end-end Anastomotic testing method(s): rectal air infusion under pelvic fluid Creation of stoma: Yes ileostomy En bloc resection: No Metastectomy: No Completeness of tumor resection: R0 Blood transfusion: No TME photography: Yes in pathology General anaesthetic with intravenous antibiotics and heparin at induction. Standard preparation including indwelling catheter placement, pressure cares, pneumatic and sequential compression stockingsin synchronous position. A safe midline laparotomy was made with placement of a Bookwalter retractor. The descending colon was mobilized in a lateral to medial fashion before the omentum was taken off the transverse colon and the splenic flexure formally mobilized. The TME plane was entered over the sacral promontory and the superior hemorrhoidal artery was followed to the EFRAIN origin where it was isolated and ligated with two 0 silk ties. The IMV was then taken high above the left colic tributary. The mesentery of the descending was taken along the IMV/EFRAIN pedicle with Ligasure to the point of intended distal transection at which point the colon was temporarily transected with a linear stapler. A circumferential TME was undertaken to the distal rectum. Anteriorly, there was radiation effect and a drop metastasis in the cul-de-sac. As such the peritoneum was taken off the inferior bladder before taking the superior half of Denonvilliers' fascia to maintain a clear margin. The left seminal vesicle felt very firm and was closely adherent to the area of the drop metastases. As such a shave was taken and sent topathology, confirming no tumor involvement. Once the rectum was isolated to its bare area, it was transected with a Contour Green 45 stapler after appropriate compression. The specimen was then sent to pathology. Thereafter, the marginal artery of the descending colon was tested and found to be excellent. The end staple line was transected and a 28mm anvil secured with 2-0 prolene. A circular stapled tension-free anastomosis was undertaken after appropriate compression time. Flexible sigmoidoscopy was undertaken confirming a circumferentially intact hemostatic staple line with healthy mucosa above and below. Leak test was negative. Dr Viera and his team proceeded to their portion of the procedure. At the end, a diverting loop ileostomy was fashioned in a routine manner in the right lower quadrant and a 19Fr drain was placed inthe pelvis. Commission on Cancer Critical Element Summary Operation performed with curative intent: Yes Tumor location: Rectum, NOS Rosa Minor, Rich, M.P.H. documented in this encounter Miscellaneous Notes * Hospital Course - Genesis Suresh P.A.-C. - 03/30/2024 4:39 PM CDT G2 [id number] metastatic colorectal adenocarcinoma status post exploratory laparotomy, multiple liver wedge resections, multiple liver ablation, cholecystectomy, low anterior resection with anastomosis, diverting loop ileostomy, hepatic artery infusion pump placement, 03/29/2024 . The patient was admitted to [facility]. The patient was taken to theoperating room where they underwent the above procedure. The patient tolerated the procedure well. After a brief stay in the postanesthesia care unit, the patient was transferred to the general surgical floor. Throughout the hospitalization, pain was well managed with IV and oral pain medications. At the time of discharge, the patient was tolerating a general diet, and pain was controlled on oralpain medication alone. The surgical drain was removed before the time of discharge. OPERATIVE PROCEDURE Procedure(s) (LRB): HEPATIC ARTERY INFUSION PUMP PLACEMENT. (N/A) MULTIPLE WEDGE RESECTIONS LIVER. (N/A) ULTRASOUND LIVER. (N/A) ABLATION LESION LIVER. (N/A) CHOLECYSTECTOMY. (N/A) RESECTION LOW ANTERIOR WITH ANASTOMOSIS. (N/A) CONSTRUCTION ILEOSTOMY. (N/A) SIGMOIDOSCOPY FLEXIBLE (N/A) FINAL PATHOLOGY FINAL DIAGNOSIS A. Portion of seminal vesicle, [...] resection: Hyalinized granuloma; negative for tumor. See comment. Comment: Special stains for AFB and GMS are negative [...] identified Lymphatic and / or Vascular Invasion: Present, extramural and intramural large venous and small vessel Perineural Invasion: Present Tumor Budding: Not applicable Number of Tumor Buds in 1 hotspot field: Not applicable Tumor Severy Score: Not applicable Treatment Effect: Present, with residual cancer showing evident tumor regression, but more than single cells or rare small groups of cancer cells (partial response, score 2) Margin Status All Margins Negative for Invasive Carcinoma Closest Margin(s) to Invasive Carcinoma: Radial Distance from Invasive Carcinoma to Closest Margin: 1.2 cm Distance from Invasive Carcinoma to Radial (Circumferential) Margin: Distance already reported as closest margin Distance from Invasive Carcinoma to Distal Margin: 6.5 cm Margin Status for Non-Invasive Tumor: All margins negative for high-grade dysplasia Regional Lymph Nodes Status Tumor Present in Regional Lymph Node(s) Number of Lymph Nodes with Tumor: 3 Number of Lymph Nodes Examined: 54 Tumor Deposits: Present, 5 Distant Metastasis. Distant Site(s) Involved: Liver Pathologic Staging (AJCC, 8th edition) Modified Classification: y (posttreatment) pT Category: pT4 T Suffix: Not applicable pN Category: pN1b pM Category: pM1a Additional Pathologic Findings: None identified Best Tumor Block for Ancillary Testing: Block B4 (DNA mismatch repair status previously reported) The synoptic report incorporates information from all relevant surgical material and includes all required data elements of the current CAP Cancer Protocol. Participated in the Interpretation Porsche Holbrook M.D.-Pathology Fellow Report electronically signed by Mera Song M.D., Ph.D. I verify that I have examined all relevant slides/materials for the specimen(s) and rendered or confirmed the diagnosis. Frozen Intraoperative Report A. Soft tissue, portion of left seminal vesicle, excision: Negative for tumor. B. Rectum and sigmoid colon, low anterior resection: Residual adenocarcinoma within a tumor bed extending into the perirectal adipose tissue and to the anterior serosa. The resection margins are negative for tumor. Closest margin is 1.2 cm to radial. Tumor is 6.5 cm to the distal margin. A perirectal tumor deposit is identified. E. Liver, portion caudate, wedge resection: Involved by adenocarcinoma. Surgical margins are negative for tumor. F. Liver, segment NELLY, wedge resection: Involved by adenocarcinoma. Surgical margins are negative for tumor. G. Liver, segment VII, wedge resection: involved by adenocarcinoma. Surgical margins are negative for tumor. I. Lymph node, portocaval, biopsy: A single (1) lymph node is negative for tumor. J. Liver, segment VII No. 2, wedge resection: Hyalinized nodule, negative for tumor, favor calcified granuloma. ADDITIONAL DIAGNOSES Urinary Retention The catheter was removed from the bladder. The patient had ongoing urinary retention requiring intermittent in and out catheterization. He was taught how to self catheterize at home. If he is still having urinary retention requiring self catheterization, he will call us to arrange outpatient neurology follow up. Hypokalemia Hypomagnesemia Hypophosphatemia The patient's electrolytes were monitored and repleted as indicated throughout their hospitalization. 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 The patient's home medications were restarted as indicated. documented in this encounter Plan of Treatment Upcoming Encounters Date Type Department Care Team (Late st Contact Info) Description 06/01/2024 9:30 AM CDT Clinical Support Division of Colon and Rectal Surgery in [address] [phone] Armida Bullock APRN, C.N.P., M.S.N. [address] [place] [phone] 06/07/2024 9:20 AM CDT Lab Department of Infusion Therapy in [place], [place] [address] [place] [phone] Mariluz Soler M.D. [address] [place] [phone] 06/07/2024 11:20 AM CDT Office Visit Department of Oncology in [address] [phone] Mariluz Soler M.D. [address] [place] [phone] 06/07/2024 1:00 PM CDT Infusion Department of Oncology in [place], [place] [address] [place] [phone] Mariluz Soler M.D. [address] [place] [phone] 06/17/2024 8:30 AM CDT Appointment Department of Laboratory Medicine and Pathology, [facility], in [place], [place] [address] [place] [phone] Anny Mcneill M.D. [address] [place] [phone] 06/17/2024 9:00 AM CDT Lab Department of Infusion Therapy in [place], [place] [address] [place] [phone] Anny Mcneill M.D. [address] [place] [phone] 06/17/2024 10:45 AM CDT Procedure visit Department of Urology in [place], [place] [address] [place] [phone] Anny Mcneill M.D. [address] [place] [phone] 06/17/2024 1:45 PM CDT Comprehensive Visit Department of Urology in [place], [place] [address] [place] [phone] Ayesha Romero, PSolitarioARogerio [address] [place] [phone] 06/17/2024 4:15 PM CDT Comprehensive Visit Department of Urology in [place], [place] [address] [place] [phone] Scotty Tom APRN, C.N.P. [address] [place] [phone] Scheduled Referrals Name Type Priority Associated Diagnoses Orde r Schedule Oncology - Chemo education visit (clinic) Outpatient Referral Routine 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) Malignant Neoplasm Of Rectum (HCC) Secondary Malignant Neoplasm Liver (HCC) Expected: 04/25/2024, Expires: 04/25/2025 General Surgery office visit (clinic) Outpatient Referral Routine Expected: 05/03/2024 (Approximate), Expires: 07/04/2025 documented as of this encounter Goals Goal [...] General On track( 11:47 AM CDT) Yes Blaine, Nadia Boone R.N. Note: 01/24/20 - More structure to his day. 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 Recognizing he needs more personal time. Meet with therapist regularly General On track( 11:43 AM CDT) Yes BlaineNadia, R.N. Note: Dr. Pavan Sorensen, with [facility] in [place], [place]. Take your medication every day Lifestyle [...] Procedure Name Priority Date/Time Associated Diagnosis Comments PERFORM CENTRAL OPERATIONS LABEL CLERK Routine 04/03/2024 9:56 AM CDT CBC WITHOUT DIFFERENTIAL, B Routine 04/02/2024 8:36 PM CDT PHOSPHORUS (INORGANIC), S Routine 04/02/2024 8:36 PM CDT COMPREHENSIVE METABOLIC PANEL, S/P Routine 04/02/2024 8:36 PM CDT HEPATIC FUNCTION PANEL, S Routine 04/02/2024 3:49 AM CDT PROTHROMBIN TIME (PT), P Routine 04/02/2024 3:49 AM CDT CBC WITHOUT DIFFERENTIAL, B Routine 04/02/2024 3:49 AM CDT PHOSPHORUS (INORGANIC), S Routine 04/02/2024 3:49 AM CDT MAGNESIUM, S Routine 04/02/2024 3:49 AM CDT BASIC METABOLIC PANEL, S/P Routine 04/02/2024 3:49 AM CDT CBC WITHOUT DIFFERENTIAL, B Timed 04/01/2024 7:30 AM CDT HEPATIC FUNCTION PANEL, S Routine 04/01/2024 3:43 AM CDT PROTHROMBIN TIME (PT), P Routine 04/01/2024 3:43 AM CDT CBC WITHOUT DIFFERENTIAL, B Routine 04/01/2024 3:43 AM CDT PHOSPHORUS (INORGANIC), S Routine 04/01/2024 3:43 AM CDT MAGNESIUM, S Routine 04/01/2024 3:43 AM CDT BASIC METABOLIC PANEL, S/P Routine 04/01/2024 3:43 AM CDT HEPATIC FUNCTION PANEL, S Routine 03/30/2024 8:51 PM CDT CBC WITHOUT DIFFERENTIAL, B Routine 03/30/2024 8:51 PM CDT PHOSPHORUS (INORGANIC), S Routine 03/30/2024 8:51 PM CDT MAGNESIUM, S Routine 03/30/2024 8:51 PM CDT BASIC METABOLIC PANEL, S/P Routine 03/30/2024 8:51 PM CDT HEPATIC FUNCTION PANEL, S Routine 03/30/2024 4:12 AM CDT PROTHROMBIN TIME (PT), P Routine 03/30/2024 4:12 AM CDT CBC WITHOUT DIFFERENTIAL, B Routine 03/30/2024 4:12 AM CDT BASIC METABOLIC PANEL, S/P Routine 03/30/2024 4:12 AM CDT PATIENT STATUS, ABG STAT 03/29/2024 1 :28 PM CDT LACTATE, B STAT 03/29/2024 1:28 PM CDT SODIUM, B STAT 03/29/2024 1:28 PM CDT ABG W/COOX STAT 03/29/2024 1:28 PM CDT POTASSIUM, B STAT 03/29/2024 1:28 PM CDT GLUCOSE, WHOLE BLOOD STAT 03/29/2024 1:28 PM CDT CALCIUM, IONIZED, S/B STAT 03/29/2024 1:28 PM CDT PATIENT STATUS, ABG STAT 03/29/2024 1 1:28 AM CDT LACTATE, B STAT 03/29/2024 11:28 AM CDT SODIUM, B STAT 03/29/2024 11:28 AM CDT ABG W/COOX STAT 03/29/2024 11:28 AM CDT POTASSIUM, B STAT 03/29/2024 11:28 AM CDT GLUCOSE, WHOLE BLOOD STAT 03/29/2024 11:28 AM CDT CALCIUM, IONIZED, S/B STAT 03/29/2024 11:28 AM CDT SURGICAL PATHOLOGY, [facility] Routine 03/29/2024 10:18 AM CDT Malignant Neoplasm Of Rectum (HCC) Secondary Malignant Neoplasm Liver (HCC) SIGMOIDOSCOPY FLEXIBLE 4 7:30 AM CDT Malignant [...] Genesis Suresh P.A.-C. IMG CT PROCEDURES * CT Abdomen Pelvis with [...] lymphadenopathyseen. Genesis Suresh P.A.-C. IMG CT PROCEDURES * Perform central line puller: De-access port (04/03/2024 9:56 AM CDT) Narrative Matt Cardona R.N. - 04/03/2024 9:56 AM CDT Matt Cardona R.N. ? 04/03/2024 ??9:58 AM Perform central line puller: De-access port Performed by: Matt Cardona R.N. Authorized by: Doris Sainz M.B.B.SSolitario ?? Doris Dinero PRO CEDURE/MINOR SURGICAL ORDERABLES * (ABNORMAL) Comprehensive Metabolic Panel (04/02/2024 8:36 PM CDT) Pathologist [facility] [place] Potassium, S 3.6 3.6 - 5.2 mmol/L 04/02/2024 9:16 PM CDT DTL Sodium, S 139 135 - 145 mmol/L 04/02/2024 9:16 PM CDT DTL Chloride, S 102 98 - 107 mmol/L 04/02/2024 9:16 PM CDT DTL Bicarbonate, S 25 22 - 29 mmol/L 04/02/2024 9:16 PM CDT DTL Anion Gap 12 7 - 15 04/02/2024 9:16 PM CDT DTL BUN (Blood Urea Nitrogen), S 11 8 - 24 mg/dL 04/02/2024 9:16 PM CDT DTL Creatinine 0.80 0.74 - 1.35 mg/dL 04/02/2024 9:16 PM CDT DTL Estimated GFR (eGFR) >90 >=60 mL/min/BS A 04/02/2024 9:16 PM CDT DTL Comment: Estimated GFR calculated using the 2020 CKD_EPI creatinine equation. Calcium, Total, S 8.9 8.6 - 10.0 mg/dL 04/02/2024 9:16 PM CDT DTL Glucose, S 99 70 - 140 mg/dL 04/02/2024 9:16 PM CDT DTL Protein, Total, S 5.6(L) 6.3 - 7.9 g/dL 04/02/2024 9:16 PM CDT DTL Albumin, S 3.9 3.5 - 5.0 g/dL 04/02/2024 9:16 PM CDT DTL Aspartate Aminotransferase (AST), S 133(H) 8 - 48 U/L 04/02/2024 9:16 PM CDT DTL Alkaline Phosphatase, S 99 40 - 129 U/L 04/02/2024 9:16 PM CDT DTL Alanine Aminotransferase (ALT), S 508(H) 7 - 55 U/L 04/02/2024 9:16 PM CDT DTL Bilirubin, Total, S 0.5 0.0 - 1.2 mg/dL 04/02/2024 9:16 PM CDT DTL Blood (Blood, Venous) 04/02/2024 8:36 PM CDT 04/02/2024 9:02 PM CDT Genesis Suresh P.A.-C. LAB BLOOD ADD-ON Performing Organization Address City/[facility]/ZIP Co de Phone Number [facility] [address] [place] [address] * Phosphorus Inorganic (04/02/2024 8:36 PM CDT) Pathologist [facility] [place] Phosphorus (Inorganic), S 3.9 2.5 - 4.5 mg/dL 04/02/2024 9:16 PM CDT DTL Blood (Blood, Venous) 04/02/2024 8:36 PM CDT 04/02/2024 9:02 PM CDT Genesis Suresh P.A.-C. LAB BLOOD ADD-ON [facility] [address] [place], [place] [id number] [place] [address] * (ABNORMAL) CBC without Differential (04/02/2024 8:36 PM CDT) Hemoglobin 11.3(L) 13.2 - 16.6 g/dL 04/02/2024 [...] P.A.-C. LAB BLOOD ADD-ON Performing Organization Address [facility] Co de Phone Number [facility] [address] [place] [address], [facility] [address] [place] [address] * Prothrombin Time (PT) (04/02/2024 3:49 AM CDT) [facility] Prothrombin Time, P 10.9 9.4 - 12.5 sec 04/02/2024 5:02 AM CDT DTL INR 1.0 0.9 - 1.1 04/02/2024 5:02 AM CDT DTL Comment: ----ADDITIONAL INFORMATION---- Standard intensity warfarin therapeutic range: 2.0 to 3.0 ?? High intensity warfarin therapeutic range: 2.5 to 3.5 Blood (Blood, Venous) 04/02/2024 3:49 AM CDT 04/02/2024 4:36 AM CDT Fiona Metzger APRN, C.N.P., M.S.N. LAB BLOOD ADD-ON Performing Organization Address City/[facility]/ZIP Co de Phone Number [facility] [address] [place] [address], [facility] [address] [place] [address] * Phosphorus Inorganic (04/02/2024 3:49 AM CDT) Phosphorus (Inorganic), S 3.4 2.5 - 4.5 mg/dL 04/02/2024 5:10 AM CDT DTL Blood (Blood, Venous) 04/02/2024 3:49 AM CDT 04/02/2024 4:53 AM CDT Fiona Metzger APRN C.N.P., M.S.N. LAB BLOOD ADD-ON [facility] [address] [place] [address], [address] [address] * (ABNORMAL) Hepatic Function Panel (04/02/2024 3:49 AM CDT) Bilirubin, Total, S 0.6 0.0 - 1.2 mg/dL 04/02/2024 5:10 AM CDT DTL Bilirubin, Direct, S <0.2 0.0 - 0.3 mg/dL 04/02/2024 5:10 AM CDT DTL Aspartate Aminotransferase (AST), S 157(H) 8 - 48 U/L 04/02/2024 5:10 AM CDT DTL Alanine Aminotransferase (ALT), S 569(H) 7 - 55 U/L 04/02/2024 5:10 AM CDT DTL Alkaline Phosphatase, S 73 40 - 129 U/L 04/02/2024 5:10 AM CDT DTL Albumin, S 3.7 3.5 - 5.0 g/dL 04/02/2024 5:10 AM CDT DTL Protein, Total, S 5.2(L) 6.3 - 7.9 g/dL 04/02/2024 5:10 AM CDT DTL Blood (Blood, Venous) 04/02/2024 3:49 AM CDT 04/02/2024 4:53 AM CDT Fiona Metzger APRN, C.N.P., M.S.N. LAB BLOOD ADD-ON [facility] [address] [place] [address], [facility] DTL [facility] [address] [place] [address] * (ABNORMAL) CBC without Differential (04/02/2024 3:49 AM CDT) Pathologist [facility] Hemoglobin 11.1(L) 13.2 - 16.6 g/dL 04/02/2024 4:41 AM CDT DTL Hematocrit 32.7(L) 38.3 - 48.6 % 04/02/2024 4:41 AM CDT DTL Erythrocytes 3.59(L) 4.35 - 5.65 x10(12)/L 04/02/2024 4:41 AM CDT DTL MCV 91.1 78.2 - 97.9 fL 04/02/2024 4:41 AM CDT DTL RBC Distrib Width 12.5 11.8 - 14.5 % 04/02/2024 4:41 AM CDT DTL Platelet Count 129(L) 135 - 317 x10(9)/L 04/02/2024 4:41 AM CDT DTL Leukocytes 2.9(L) 3.4 - 9.6 x10(9)/L 04/02/2024 4:41 AM CDT DTL Blood (Blood, Venous) 04/02/2024 3:49 AM CDT 04/02/2024 4:34 AM CDT Fiona Metzger APRN, C.N.P., M.S.N. LAB BLOOD ADD-ON [facility] [address] [place] [address], [facility] DTL [facility] [address] [place] [address] * (ABNORMAL) Basic Metabolic Panel (04/02/2024 3:49 AM CDT) Potassium, S 3.6 3.6 - 5.2 mmol/L 04/02/2024 5:10 AM CDT DTL Sodium, S 141 135 - 145 mmol/L 04/02/2024 5:10 AM CDT DTL Chloride, S 103 98 - 107 mmol/L 04/02/2024 5:10 AM CDT DTL Bicarbonate, S 26 22 - 29 mmol/L 04/02/2024 5:10 AM CDT DTL Anion Gap 12 7 - 15 04/02/2024 5:10 AM CDT DTL BUN (Blood Urea Nitrogen), S 8 8 - 24 mg/dL 04/02/2024 5:10 AM CDT DTL Creatinine 0.73(L) 0.74 - 1.35 mg/dL 04/02/2024 5:10 AM CDT DTL Estimated GFR (eGFR) >90 >=60 mL/min/BSA 04/02/2024 5:10 AM CDT DTL Comment: Estimated GFR calculated using the 2020 CKD_EPI creatinine equation. Calcium, Total, S 8.7 8.6 - 10.0 mg/dL 04/02/2024 5:10 AM CDT DTL Glucose, S 97 70 - 140 mg/dL 04/02/2024 5:10 AM CDT DTL Blood (Blood, Venous) 04/02/2024 3:49 AM CDT 04/02/2024 4:53 AM CDT Fiona Metzger APRN C.N.P., M.S.N. LAB BLOOD ADD-ON [facility] [address] [place] [address], [facility] [address] [place] [address] * Magnesium (04/02/2024 3:49 AM CDT) Magnesium, S 2.0 1.7 - 2.3 mg/dL 04/02/2024 5:10 AM CDT DTL Blood (Blood, Venous) 04/02/2024 3:49 AM CDT 04/02/2024 4:53 AM CDT Fiona Metzger APRN, C.N.P., M.S.N. LAB BLOOD ADD-ON [facility] [address] [place] [address], [facility] [address] [place] [address] * (ABNORMAL) CBC without Differential (04/01/2024 7:30 AM CDT) Hemoglobin 10.8(L) 13.2 - 16.6 g/dL 04/01/2024 8:29 AM CDT DTL Hematocrit 33.3(L) 38.3 - 48.6 % 04/01/2024 8:29 AM CDT DTL Erythrocytes 3.61(L) 4.35 - 5.65 x10(12)/L 04/01/2024 8:29 AM CDT DTL MCV 92.2 78.2 - 97.9 fL 04/01/2024 8:29 AM CDT DTL RBC Distrib Width 12.1 11.8 - 14.5 % 04/01/2024 8:29 AM CDT DTL Platelet Count 123(L) 135 - 317 x10(9)/L 04/01/2024 8:29 AM CDT DTL Leukocytes 2.9(L) 3.4 - 9.6 x10(9)/L 04/01/2024 8:29 AM CDT DTL Blood (Blood, Venous) 04/01/2024 7:30 AM CDT 04/01/2024 8:11 AM CDT Fiona Metzger APRN, C.N.P., M.S.N. LAB BLOOD ADD-ON [facility] [address] [place] [address], [facility] [address] [place] [address] * Prothrombin Time (PT) (04/01/2024 3:43 AM CDT) Prothrombin Time, P 11.2 9.4 - 12.5 sec 04/01/2024 4:17 AM CDT DTL INR 1.0 0.9 - 1.1 04/01/2024 4:17 AM CDT DTL Comment: ----ADDITIONAL INFORMATION---- Standard intensity warfarin therapeutic range: 2.0 to 3.0 ?? High intensity warfarin therapeutic range: 2.5 to 3.5 Blood (Blood, Venous) 04/01/2024 3:43 AM CDT 04/01/2024 3:59 AM CDT Uriel Sibley APRNNMarco., M.S.N[place] [address] * Phosphorus Inorganic (04/01/2024 3:43 AM CDT) Phosphorus (Inorganic), S 3.9 2.5 - 4.5 mg/dL 04/01/2024 4:29 AM CDT DT Blood (Blood, Venous) 04/01/2024 3:43 AM CDT 04/01/2024 4:13 AM CDT Tasia Sibley APRN.N.P., M.S.N. LAB BLOOD ADD-ON [facility] [address] [place] [address] * (ABNORMAL) Hepatic Function Panel (04/01/2024 3:43 AM CDT) Bilirubin, Total, S 0.5 0.0 - 1.2 mg/dL 04/01/2024 4:29 AM CDT DTL Bilirubin, Direct, S <0.2 0.0 - 0.3 mg/dL 04/01/2024 4:29 AM CDT DTL Aspartate Aminotransferase (AST), S 287(H) 8 - 48 U/L 04/01/2024 4:29 AM CDT DTL Alanine Aminotransferase (ALT), S 726(H) 7 - 55 U/L 04/01/2024 4:41 AM CDT DTL Alkaline Phosphatase, S 49 40 - 129 U/L 04/01/2024 4:29 AM CDT DTL Albumin, S 3.5 3.5 - 5.0 g/dL 04/01/2024 4:29 AM CDT DTL Protein, Total, S 4.9(L) 6.3 - 7.9 g/dL 04/01/2024 4:29 AM CDT DTL Blood (Blood, Venous) 04/01/2024 3:43 AM CDT 04/01/2024 4:13 AM CDT Uriel Sibley APRNNMarco., M.S.N. LAB BLOOD ADD-ON [facility] [address] [place] [address], [facility] [address] [place] [address] * (ABNORMAL) CBC without Differential (04/01/2024 3:43 AM CDT) Hemoglobin 10.6(L) 13.2 - 16.6 g/dL 04/01/2024 4:05 AM CDT DTL Hematocrit 31.6(L) 38.3 - 48.6 % 04/01/2024 4:05 AM CDT DTL Erythrocytes 3.47(L) 4.35 - 5.65 x10(12)/L 04/01/2024 4:05 AM CDT DTL MCV 91.1 78.2 - 97.9 fL 04/01/2024 4:05 AM CDT DTL RBC Distrib Width 12.5 11.8 - 14.5 % 04/01/2024 4:05 AM CDT DTL Platelet Count 103(L) 135 - 317 x10(9)/L 04/01/2024 4:05 AM CDT DTL Leukocytes 3.1(L) 3.4 - 9.6 x10(9)/L 04/01/2024 4:05 AM CDT DTL Blood (Blood, Venous) 04/01/2024 3:43 AM CDT 04/01/2024 3:59 AM CDT Fiona Metzger APRN, C.N.P., M.S.N. LAB BLOOD ADD-ON [facility] [address] [place] [address], [facility] [address] [place] [address] * (ABNORMAL) Basic Metabolic Panel (04/01/2024 3:43 AM CDT) [facility] Potassium, S 3.9 3.6 - 5.2 mmol/L 04/01/2024 4:29 AM CDT DTL Sodium, S 141 135 - 145 mmol/L 04/01/2024 4:29 AM CDT DTL Chloride, S 104 98 - 107 mmol/L 04/01/2024 4:29 AM CDT DTL Bicarbonate, S 29 22 - 29 mmol/L 04/01/2024 4:29 AM CDT DTL Anion Gap 8 7 - 15 04/01/2024 4:29 AM CDT DTL BUN (Blood Urea Nitrogen), S 7(L) 8 - 24 mg/dL 04/01/2024 4:29 AM CDT DTL Creatinine 0.78 0.74 - 1.35 mg/dL 04/01/2024 4:29 AM CDT DTL Estimated GFR (eGFR) >90 >=60 mL/min/BSA 04/01/2024 4:29 AM CDT DTL Comment: Estimated GFR calculated using the 2020 CKD_EPI creatinine equation. Calcium, Total, S 8.3(L) 8.6 - 10.0 mg/dL 04/01/2024 4:29 AM CDT DTL Glucose, S 97 70 - 140 mg/dL 04/01/2024 4:29 AM CDT DTL Blood (Blood, Venous) 04/01/2024 3:43 AM CDT 04/01/2024 4:13 AM CDT Fiona Metzger APRN, C.N.P., M.S.N. LAB BLOOD ADD-ON Performing Organization Address [facility]/ZIP Co de Phone Number [facility] [address] [place] [address] * Magnesium (04/01/2024 3:43 AM CDT) Magnesium, S 2.1 1.7 - 2.3 mg/dL 04/01/2024 4:29 AM CDT DTL Blood (Blood, Venous) 04/01/2024 3:43 AM CDT 04/01/2024 4:13 AM CDT Fiona Metzger APRN, C.N.P., M.S.N. LAB BLOOD ADD-ON Performing Organization Address [facility] Co de Phone Number [facility] [address] [place] [address] * Magnesium (03/30/2024 8:51 PM CDT) Magnesium, S 1.9 1.7 - 2.3 mg/dL 03/30/2024 9:45 PM CDT DTL Blood (Blood, Venous) 03/30/2024 8:51 PM CDT 03/30/2024 9:27 PM CDT Juvencio Abdul P.A.-C., M.S. LAB BLOOD AD D-ON Performing Organization Address City/[facility]/ZIP Co de Phone Number [facility] [address] [facility] [address] [place] [address] * (ABNORMAL) Phosphorus Inorganic (03/30/2024 8:51 PM CDT) Phosphorus (Inorganic), S 2.3(L) 2.5 - 4.5 mg/dL 03/30/2024 9:45 PM CDT DTL Blood (Blood, Venous) 03/30/2024 8:51 PM CDT 03/30/2024 9:27 PM CDT Juvencio Abdul P.A.-C., M.S. LAB BLOOD AD D-ON [facility] [address] [place] [address], [facility] [address] [place] [address] * (ABNORMAL) Hepatic Function Panel (03/30/2024 8:51 PM CDT) Bilirubin, Total, S 1.0 0.0 - 1.2 mg/dL 03/30/2024 9:45 PM CDT DTL Bilirubin, Direct, S 0.3 0.0 - 0.3 mg/dL 03/30/2024 9:45 PM CDT DTL Aspartate Aminotransferase (AST), S 735(H) 8 - 48 U/L 03/30/2024 9:56 PM CDT DTL Alanine Aminotransferase (ALT), S 1048(H) 7 - 55 U/L 03/30/2024 9:56 PM CDT DTL Alkaline Phosphatase, S 48 40 - 129 U/L 03/30/2024 9:45 PM CDT DTL Albumin, S 3.9 3.5 - 5.0 g/dL 03/30/2024 9:45 PM CDT DTL Protein, Total, S 5.4(L) 6.3 - 7.9 g/dL 03/30/2024 9:45 PM CDT DTL Blood (Blood, Venous) 03/30/2024 8:51 PM CDT 03/30/2024 9:27 PM CDT Juvencio Abdul P.A.-C., M.S. LAB BLOOD AD D-ON [facility] [address] [place] [address], [facility] DTL [facility] [address] [place] [address] * (ABNORMAL) Basic Metabolic Panel (03/30/2024 8:51 PM CDT) Pathologist [facility] Potassium, S 3.5(L) 3.6 - 5.2 mmol/L 03/30/2024 9:45 PM CDT DTL Sodium, S 137 135 - 145 mmol/L 03/30/2024 9:45 PM CDT DTL Chloride, S 100 98 - 107 mmol/L 03/30/2024 9:45 PM CDT DTL Bicarbonate, S 26 22 - 29 mmol/L 03/30/2024 9:45 PM CDT DTL Anion Gap 11 7 - 15 03/30/2024 9:45 PM CDT DTL BUN (Blood Urea Nitrogen), S 11 8 - 24 mg/dL 03/30/2024 9:45 PM CDT DTL Creatinine 0.77 0.74 - 1.35 mg/dL 03/30/2024 9:45 PM CDT DTL Estimated GFR (eGFR) >90 >=60 mL/min/BSA 03/30/2024 9:45 PM CDT DTL Comment: Estimated GFR calculated using the 2020 CKD_EPI creatinine equation. Calcium, Total, S 8.3(L) 8.6 - 10.0 mg/dL 03/30/2024 9:45 PM CDT DTL Glucose, S 117 70 - 140 mg/dL 03/30/2024 9:45 PM CDT DTL Blood (Blood, Venous) 03/30/2024 8:51 PM CDT 03/30/2024 9:27 PM CDT Juvencio Abdul P.A.-C., M.S. LAB BLOOD AD D-ON [facility] [address] [place] [address], [facility] [address] [place] [address] * (ABNORMAL) CBC without Differential (03/30/2024 8:51 PM CDT) Hemoglobin 12.3(L) 13.2 - 16.6 g/dL 03/30/2024 9:19 PM CDT DTL Hematocrit 36.9(L) 38.3 - 48.6 % 03/30/2024 9:19 PM CDT DTL Erythrocytes 4.12(L) 4.35 - 5.65 x10(12)/L 03/30/2024 9:19 PM CDT DTL MCV 89.6 78.2 - 97.9 fL 03/30/2024 9:19 PM CDT DTL RBC Distrib Width 12.0 11.8 - 14.5 % 03/30/2024 9:19 PM CDT DTL Platelet Count 142 135 - 317 x10(9)/L 03/30/2024 9:19 PM CDT DTL Leukocytes 5.7 3.4 - 9.6 x10(9)/L 03/30/2024 9:19 PM CDT DTL Blood (Blood, Venous) 03/30/2024 8:51 PM CDT 03/30/2024 9:13 PM CDT Juvencio Abdul P.A.-C., M.S. LAB BLOOD AD D-ON [facility] [address] [place] [address], [facility] [address] [place] [address] * (ABNORMAL) Prothrombin Time (PT) (03/30/2024 4:12 AM CDT) Pathologist [facility] Prothrombin Time, P 15.0(H) 9.4 - 12.5 sec 03/30/2024 5:23 AM CDT DTL INR 1.4 0.9 - 1.1 03/30/2024 5:23 AM CDT DTL Comment: ----ADDITIONAL INFORMATION---- Standard intensity warfarin therapeutic range: 2.0 to 3.0 ?? High intensity warfarin therapeutic range: 2.5 to 3.5 Blood (Blood, Venous) 03/30/2024 4:12 AM CDT 03/30/2024 5:01 AM CDT Eloy Banks M.D. LAB BLOOD ADD-ON Performing Organization Address [facility] Co de Phone Number [facility] [address] [place] [address], [facility] DTL [facility] [address] [place] [address] * (ABNORMAL) Hepatic Function Panel (03/30/2024 4:12 AM CDT) Bilirubin, Total, S 0.9 0.0 - 1.2 mg/dL 03/30/2024 5:26 AM CDT DTL Bilirubin, Direct, S 0.3 0.0 - 0.3 mg/dL 03/30/2024 5:26 AM CDT DTL Aspartate Aminotransferase (AST), S 780(H) 8 - 48 U/L 03/30/2024 5:41 AM CDT DTL Alanine Aminotransferase (ALT), S 854(H) 7 - 55 U/L 03/30/2024 5:41 AM CDT DTL Alkaline Phosphatase, S 31(L) 40 - 129 U/L 03/30/2024 5:26 AM CDT DTL Albumin, S 3.6 3.5 - 5.0 g/dL 03/30/2024 5:26 AM CDT DTL Protein, Total, S 4.6(L) 6.3 - 7.9 g/dL 03/30/2024 5:26 AM CDT DTL Blood (Blood, Venous) 03/30/2024 4:12 AM CDT 03/30/2024 5:09 AM CDT Eloy Banks M.D. LAB BLOOD ADD-ON Performing Organization Address City/[facility]/ZIP Co de Phone Number [facility] [address] [place] [address], [facility] [address] [place] [address] * (ABNORMAL) CBC without Differential (03/30/2024 4:12 AM CDT) Pathologist [facility] Hemoglobin 11.3(L) 13.2 - 16.6 g/dL 03/30/2024 5:05 AM CDT DTL Hematocrit 33.0(L) 38.3 - 48.6 % 03/30/2024 5:05 AM CDT DTL Erythrocytes 3.71(L) 4.35 - 5.65 x10(12)/L 03/30/2024 5:05 AM CDT DTL MCV 88.9 78.2 - 97.9 fL 03/30/2024 5:05 AM CDT DTL RBC Distrib Width 12.0 11.8 - 14.5 % 03/30/2024 5:05 AM CDT DTL Platelet Count 145 135 - 317 x10(9)/L 03/30/2024 5:05 AM CDT DTL Leukocytes 5.6 3.4 - 9.6 x10(9)/L 03/30/2024 5:05 AM CDT DTL Blood (Blood, Venous) 03/30/2024 4:12 AM CDT 03/30/2024 4:56 AM CDT Eloy Banks M.D. LAB BLOOD ADD-ON [facility] [address] [place], [place] [address] [address] [place] [address] * (ABNORMAL) Basic Metabolic Panel (03/30/2024 4:12 AM CDT) Pathologist [facility] Potassium, S 4.4 3.6 - 5.2 mmol/L 03/30/2024 5:26 AM CDT DTL Sodium, S 137 135 - 145 mmol/L 03/30/2024 5:26 AM CDT DTL Chloride, S 103 98 - 107 mmol/L 03/30/2024 5:26 AM CDT DTL Bicarbonate, S 25 22 - 29 mmol/L 03/30/2024 5:26 AM CDT DTL Anion Gap 9 7 - 15 03/30/2024 5:26 AM CDT DTL BUN (Blood Urea Nitrogen), S 13 8 - 24 mg/dL 03/30/2024 5:26 AM CDT DTL Creatinine 0.84 0.74 - 1.35 mg/dL 03/30/2024 5:26 AM CDT DTL Estimated GFR (eGFR) >90 >=60 mL/min/BSA 03/30/2024 5:26 AM CDT DTL Comment: Estimated GFR calculated using the 2020 CKD_EPI creatinine equation. Calcium, Total, S 8.1(L) 8.6 - 10.0 mg/dL 03/30/2024 5:26 AM CDT DTL Glucose, S 117 70 - 140 mg/dL 03/30/2024 5:26 AM CDT DTL Blood (Blood, Venous) 03/30/2024 4:12 AM CDT 03/30/2024 5:09 AM CDT Eloy Banks M.D. LAB BLOOD ADD-ON Performing Organization Address City/[facility]/ZIP Co de Phone Number [facility] [address] [place] [address] * Patient Status (03/29/2024 1:28 PM CDT) Temperature 35.6 37.0 deg C 03/29/2024 1:28 PM CDT STMA FIO2 0.38 0.21=AIR 03/29/2024 1:28 PM CDT STMA Blood 03/29/2024 1:28 PM CDT 03/29/2024 1:28 PM CDT Sp Jonas M.D. LAB BLOOD NON ADD-O N Performing Organization Address City/[facility]/ZIP Co de Phone Number [facility] [address] STMA [facility] [address] [place] [address] * (ABNORMAL) Lactate, B - Intra-op (03/29/2024 1:28 PM CDT) Lactate, B 2.4(H) 0.5 - 2.2 mmol/L 03/29/2024 1:30 PM CDT STMA Blood (Blood, Venous) 03/29/2024 1:28 PM CDT 03/29/2024 1:28 PM CDT Soniya Conroy M.D. LAB BLOOD NON ADD-ON [facility] [address] [place] [address], [facility] [address] [place] [address] * Glucose, Whole Blood (03/29/2024 1:28 PM CDT) Glucose 127 70 - 140 mg/dL 03/29/2024 1:30 PM CDT STMA Blood (Blood, Arterial Line) 03/29/2024 1:28 PM CDT 03/29/2024 1:28 PM CDT Soniya Conroy M.D. LAB BLOOD ADD-ON [facility] [address] [place], [place] [address] [address] [place] [address] * Potassium, Blood (03/29/2024 1:28 PM CDT) Potassium, B 4.2 3.6 - 5.2 mmol/L 03/29/2024 1:30 PM CDT STMA Blood (Blood, Arterial Line) 03/29/2024 1:28 PM CDT 03/29/2024 1:28 PM CDT Soniya Conroy M.D. LAB BLOOD NON ADD-ON Performing Organization Address City/[facility] Co de Phone Number [facility] [address] [place], [place] [address] [place] [address] 200 [place] [address] * Sodium, B (03/29/2024 1:28 PM CDT) Pathologist [facility] Sodium, B 138 135 - 145 mmol/L 03/29/2024 1:30 PM CDT STMA Blood (Blood, Arterial Line) 03/29/2024 1:28 PM CDT 03/29/2024 1:28 PM CDT Soniya Conroy M.D. LAB BLOOD NON ADD-ON Performing Organization Address City/[facility] Co de Phone Number [facility] [address] [place], [place] [id number] [place] [address] 200 [place] [address] * Calcium, Ionized (03/29/2024 1:28 PM CDT) Pathologist [facility] Calcium, Ionized, B 4.69 4.65 - 5.30 mg/dL 03/29/2024 1:30 PM CDT [facility] Blood (Blood, Arterial Line) 03/29/2024 1:28 PM CDT 03/29/2024 1:28 PM CDT Soniya Conroy M.D. LAB BLOOD NON ADD-ON [facility] [address] [place] [address], [facility] [address] [place] [address] * (ABNORMAL) Blood Gas with Coox, Arterial (03/29/2024 1:28 PM CDT) pO2 171(H) 83 - 108 mm Hg [...] LAB BLOOD NON ADD-ON Performing Organization Address City/[facility]/ZIP Co de Phone Number [facility] [address] [place] [address], [facility] [address] [place] [address] * Patient Status (03/29/2024 11:28 AM CDT) Temperature 35.4 37.0 deg C 03/29/2024 11:28 AM CDT STMA FIO2 0.43 0.21=AIR 03/29/2024 11:28 AM CDT STMA Blood 03/29/2024 11:2 8 AM CDT 03/29/2024 11:28 AM CDT Jacques Cuevas M.D. LAB BLOOD NON ADD-ON Performing Organization Address City/[facility]/ZIP Co de Phone Number [facility] [address] [place] [address], [facility] STMA [facility] [address] [place] [address] * Lactate, B - Intra-op (03/29/2024 11:28 AM CDT) Lactate, B 1.7 0.5 - 2.2 mmol/L 03/29/2024 11:30 AM CDT STMA Blood (Blood, Venous) 03/29/2024 11:28 AM CDT 03/29/2024 11:28 AM CDT Soniya Conroy M.D. LAB BLOOD NON ADD-ON [facility] [address] [place] [address], [facility] [address] [place] [address] * Glucose, Whole Blood (03/29/2024 11:28 AM CDT) Glucose 108 70 - 140 mg/dL 03/29/2024 11:30 AM CDT [facility] Blood (Blood, Arterial Line) 03/29/2024 11:28 AM CDT 03/29/2024 11:28 AM CDT Soniya Conroy M.D. LAB BLOOD ADD-ON [facility] [address] [place] [address], [facility] [address] [place] [address] * Potassium, Blood (03/29/2024 11:28 AM CDT) Potassium, B 4.4 3.6 - 5.2 mmol/L 03/29/2024 11:30 AM CDT [facility] Blood (Blood, Arterial Line) 03/29/2024 11:28 AM CDT 03/29/2024 11:28 AM CDT Soniya Conroy M.D. LAB BLOOD NON ADD-ON Performing Organization Address City/[facility]/ZIP Co de Phone Number [facility] [address] [place], [place] [address] [address] [place] [address] * Sodium, B (03/29/2024 11:28 AM CDT) Sodium, B 138 135 - 145 mmol/L 03/29/2024 11:30 AM CDT [facility] Blood (Blood, Arterial Line) 03/29/2024 11:28 AM CDT 03/29/2024 11:28 AM CDT Soniya Conroy M.D. LAB BLOOD NON ADD-ON Performing Organization Address City/[facility]/ZIP Co de Phone Number [facility] [address] [place], [place] [address] [address] [place] [address] * (ABNORMAL) Calcium, Ionized (03/29/2024 11:28 AM CDT) Calcium, Ionized, B 4.39(L) 4.65 - 5.30 mg/dL 03/29/2024 11:30 AM CDT [facility] Blood (Blood, Arterial Line) 03/29/2024 11:28 AM CDT 03/29/2024 11:28 AM CDT Soniya Conroy M.D. LAB BLOOD NON ADD-ON [facility] [address] [place] [address], [facility] [address] [place] [address] * (ABNORMAL) Blood Gas with Coox, Arterial (03/29/2024 11:28 AM CDT) pO2 181(H) 83 - 108 mm Hg 03/29/2024 11:30 AM CDT [facility] pCO2 38 35 - 48 mm Hg 03/29/2024 11:30 AM CDT [facility] pH 7.35 7.35 - 7.45 pH 03/29/2024 11:30 AM CDT [facility] Base Excess -4(L) -2 - 3 mmol/L 03/29/2024 11:30 AM CDT [facility] HCO3 22 22 - 26 mmol/L 03/29/2024 11:30 AM CDT [facility] Hemoglobin, B 15.8 13.2 - 16.6 g/dL 03/29/2024 11:30 AM CDT [facility] O2Hb 97.4 94.0 - 98.0 % 03/29/2024 11:30 AM CDT [facility] COHb 1.5 <3.0 % 03/29/2024 11:30 AM CDT [facility] MetHb <1.0 <1.5 % 03/29/2024 11:30 AM CDT [facility] CtO2 22.0(H) 18.0 - 21.0 vol % 03/29/2024 11:30 AM CDT [facility] Blood (Blood, Arterial Line) 03/29/2024 11:28 AM CDT 03/29/2024 11:28 AM CDT Soniya Conroy M.D. LAB BLOOD NON ADD-ON [facility] [address] [place] [address], [facility] [address] [place] [address] * Surgical Pathology, Frozen Lab (03/29/2024 10:18 [...] 03/30/2024 9:42 AM 03/31/2024 5:12 PM CDT [facility] Gross Description A. ??Received fresh labeled portion [...] is procured for IRB No. [id number]. ??Photographed. ??[employer] tissue submitted for frozen and permanent sections. ??Grossed by Cadence Hoang M.S., NOEL([facility]). C. ??Received fresh labeled colon anastomotic rings are two (2) annular portions of bowel mucosa, each 1.7 cm in diameter, ranging from 0.9 to 1 cm in length. ??All submitted for permanent sections. ??Grossed by Brianna Martinez M.S., PA([facility]). D. ??Received fresh labeled gallbladder is a 9.8 x 3.6 x 1.6 cm gallbladder with a 0.3 cm maximum wall thickness, and patent cystic duct. ??A cystic duct lymph node is not identified. ??No stones are present within the lumen. ??No masses are identified. ??[employer] tissue submitted for permanent sections. ??Grossed by Brianna Martinez M.S., PA([facility]). E. ??Received fresh labeled portion of caudate liver is an 8.5 gram, 5.4 x 2.4 x 1.6 cm liver wedge specimen. ??A single 1.1 x 0.8 x 0.7 cm yellow mass is present, 0.3 cm from the inked surgical margin. ??Margin is submitted perpendicularly. ??[employer] tissue submitted for permanent sections. ??Grossed by Vicky Alejandre., P.A. ([facility]). F. ??Received fresh labeled liver segment NELLY is a 4.1 x 3.4 x 1.6 cm liver wedge specimen. ??A single 1.5 x 1 x 0.9 cm yellow mass is present, 0.5 cm from the inked surgical margin. ??Margin is submitted perpendicularly. Shook Machine Operator tissue submitted for frozen and permanent sections. ??Grossed by Vicky Alejandre., P.A. ([facility]). G. ??Received fresh labeled liver segment VII is a 14.3 gram, 5.1 x 3.4 x 1.6 cm liver wedge specimen. ??A single 1 x 1 x 0.8 cm yellow mass is present, 0.4 cm from the inked surgical margin. ??Margin is submitted perpendicularly. Shook Machine Operator tissue submitted for permanent sections. Grossed by Jaja Alejandre, P.A. ([facility]). H. ??Received fresh labeled hepatic artery lymph nodes is a 1.6 x 0.8 x 0.8 cm lymph node. ??Lymph nodes submitted for permanent sections. ??Grossed by Jaja Alejandre, P.A. ([facility]). I. ??Received fresh labeled portocaval lymph node is a 1.8 x 1 x 0.8 cm lymph node. ??Lymph nodes submitted for frozen and permanent sections. ??Grossed by Jaja Alejandre, P.A. ([facility]). J. ??Received fresh labeled segment 7 liver wedge No. 2 is a 0.40 gram, 1.8 x 1.2 x 0.3 cm liver wedge specimen. ??A single 0.2 x 0.2 x 0.2 cm holden-white mass is present, 0.1 cm from the inked surgical margin. ??Margin is submitted perpendicularly. ??Shook Machine Operator tissue submitted for frozen and permanent sections. [...] will be performed on block B12 at [place], [place] Signed by Timothy Cordoba M.D. 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 (HCC) Post Operative Nausea/Vomiting Obesity Body Mass Index 30-39.9 Adult Retention Urinary Hypokalemia Hypomagnesemia Hypophosphatemia 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) documented in this encounter Admitting Diagnoses Diagnosis Malignant Neoplasm Of Rectum (HCC) Secondary Malignant Neoplasm Liver (HCC) documented in this encounter Administered Medications Inactive Administered Medications - up to 3 most recent administrations Medication Order MAR Action Action Date Dose Rate Site acetaminophen injection 1,000 mg 1,000 mg, intravenous, at 400 mL/hr, Administer over 15 Minutes, Once, On Thu03/29/24 at 1900, For 1 dose, PACU (only), Restriction Criteria (Pharmacy will review and approve if criteria met): Unable to take or tolerate medications administered via the enteral route or orally (not just NPO) New Bag 03/29/2024 6:32 PM CDT 1,000 mg 400 mL/hr acetaminophen tablet 1,000 mg (TYLENOL) 1,000 mg, oral, Once, On Thu03/29/24 at 0715, For 1 dose, Pre-Op Given 03/29/2024 7:20 AM CDT 1,000 mg acetaminophen tablet 650 mg (TYLENOL) 650 mg, oral, Every 6 hours, First dose on Thu03/30/24 at 0000, Not to exceed 4 grams in 24 hours. Given 04/03/2024 7:32 AM CDT 650 mg Given 04/03/2024 1:19 AM CDT 650 mg Given 04/02/2024 7:03 PM CDT 650 mg buPROPion XL 24 hr tablet 300 mg (WELLBUTRIN XL) 300 mg, oral, Every morning, First dose on Thu03/30/24 at 0900, Swallow whole. Do NOT crush, chew, or split tablet. Given 04/03/2024 8:12 AM CDT 300 mg Given 04/02/2024 8:29 AM CDT 300 mg Given 04/01/2024 8:15 AM CDT 300 mg cyclobenzaprine tablet 5 mg (FLEXERIL) 5 mg, oral, 3 times daily PRN, muscle spasms, Starting on 04/02/24 at 0604 Given 04/02/2024 10:06 PM CDT 5 mg Given 04/02/2024 8:29 AM CDT 5 mg enoxaparin injection 40 mg (LOVENOX) 40 mg, subcutaneous, Daily at bedtime, First dose on Thu03/30/24 at 2100, Begin education Given 04/02/2024 9:08 PM CDT 40 mg Right Upper Arm (Anna k) Given 04/01/2024 9:23 PM CDT 40 mg Ri ght Upper Arm (Back) Given 03/31/2024 8:33 PM CDT 40 mg Le ft Upper Arm (Back) fentaNYL injection 50 mcg (SUBLIMAZE) 50 mcg, intravenous, Every 10 min PRN, moderate pain or score 4-6 of 10, severe pain or score 7-10 of 10, Starting on Thu03/29/24 at 0804, For 24 hours, PACU & Post-Op, Give if pain score remains 7 or greater after 1 hour following oxyCODONE administration. May repeat once after 10 minutes if pain rated greater than 4. If pain score remains 7 or greater 30 minutes after fentaNYL administration and no signs of sedation or pain sedation mismatch, begin fentaNYL Patient Controlled Analgesia. Given 03/29/2024 6:49 PM CDT 25 mcg Given 03/29/2024 6:16 PM CDT 25 mcg fosaprepitant in NaCl 0.9% IVPB 150 mg (EMEND) 150 mg, intravenous, at 500 mL/hr, Administer over 30 Minutes, Once, On Thu03/29/24 at 0715, For 1 dose, Pre-Op, Incompatible with solutions containing divalent cations (calcium, magnesium) including lactated Ringer's solution., Restriction Criteria (Pharmacy will review and approve if criteria met): Use in the perioperative setting New Bag 03/29/2024 7:44 AM CDT 150 mg 500 mL/hr heparin (porcine) injection 5,000 Units 5,000 Units, subcutaneous, Every 8 hours scheduled, First dose on Thu03/30/24 at 0600, For 2 doses Given 03/30/2024 6:27 AM CDT 5,000 Units Left Upper Arm (Back) heparin flush 500-1,000 Units 500-1,000 Units, intra-catheter, During hospitalization, line care, Prior to discharge, Starting on Thu04/03/24 at 0927, For 1 dose, Implanted Vascular Access Device (IVAD) Venous Non-Valved: flush 5 mL (500 units) per port/lumen following saline flush prior to discharge. Given 04/03/2024 9:54 AM CDT 500 Units HYDROmorphone (PF) injection 0.2 mg (DILAUDID) 0.2 mg, intravenous, Every 2 hour PRN, severe pain or score 7-10 of 10, breakthrough pain, Starting on Thu03/29/24 at 1946, For breakthrough pain unrelieved 30 minutes after PRN oral pain medication is used; or if unable to take oral pain medication. Given 04/02/2024 3:04 AM CDT 0.2 mg Given 03/31/2024 3:33 AM CDT 0.2 mg Given 03/30/2024 3:58 PM CDT 0.2 mg ibuprofen tablet 400 mg (MOTRIN) 400 mg, oral, Every 6 hours PRN, moderate pain or score 4-6 of 10, Starting on 04/02/24 at 0604, Take with food or milk if GI disturbances occur with use. Given 04/03/2024 12:42 PM CDT 400 mg Given 04/03/2024 5:33 AM CDT 400 mg Given 04/02/2024 4:44 PM CDT 400 mg ketorolac injection 15 mg (TORADOL) 15 mg, intravenous, Every 6 hours scheduled, First dose (after last modification) on Rhianna 03/31/24 at 0745, For 2 days, Adult IV push rate: Over 15 seconds. Peds IV push rate: Over 1 minute. Doses > 15 mg IV/IM are discouraged due to lack of additional analgesic benefit. Given 04/01/2024 3:21 PM CDT 15 mg Given 04/01/2024 10:07 AM CDT 15 mg Given 04/01/2024 4:03 AM CDT 15 mg Lactated Ringer's 75 mL/hr, intravenous, Continuous, Starting on Thu03/29/24 at 2015 New Bag 03/29/2024 7:49 PM CDT 75 mL/hr 75 mL/hr lamoTRIgine ER 24 hr tablet 200 mg (LaMICtaL XR) 200 mg, oral, Daily, First dose on Thu03/30/24 at 0900, Swallow whole. Do NOT crush, chew, or split tablet. Given 04/03/2024 8:12 AM CDT 200 mg Given 04/02/2024 8:29 AM CDT 200 mg Given 04/01/2024 8:19 AM CDT 200 mg lidocaine 5 % 1 patch (LIDODERM) 1 patch, transdermal, Administer over 12 Hours, Daily, First dose on Thu04/03/24 at 0900, Remove after 12 hours. magnesium oxide tablet 400 mg (MAG-OX) 400 mg, oral, 2 times daily before morning and evening meals, First dose on Thu03/30/24 at 0700, For 3 days Given 04/01/2024 3:21 PM CDT 400 mg Given 03/31/2024 3:59 PM CDT 400 mg Given 03/31/2024 6:28 AM CDT 400 mg magnesium oxide tablet 400 mg (MAG-OX) 400 mg, oral, Daily PRN, constipation, Starting on Thu04/02/24 at 0828, For 3 days methocarbamoL tablet 1,000 mg (ROBAXIN) 1,000 mg, oral, 3 times daily PRN, muscle spasms, Starting on Thu03/30/24 at 1756 Given 04/03/2024 12:42 PM CDT 1,0 00 mg Given 04/03/2024 2:41 AM CDT 1,000 mg Given 04/02/2024 12:26 PM CDT 1,000 mg nalbuphine injection 2.5 mg (NUBAIN) 2.5 mg, intravenous, Every 4 hours PRN, itching, Starting on Thu03/29/24 at 1740, For 4 doses, PACU & Post-Op Given 03/30/2024 3:58 PM CDT 2.5 mg Given 03/29/2024 10:23 PM CDT 2.5 mg ondansetron (PF) injection 4 mg (ZOFRAN) 4 mg, intravenous, Every 6 hours PRN, nausea, vomiting, Starting on Thu04/02/24 at 0828, Reassess for nausea or vomiting after at least 10 minutes. If nausea or vomiting persists administer next ordered antiemetic medications (order for antiemetic medication administration ondansetron then haloperidol then prochlorperazine). oxyCODONE IR tablet 10 mg (ROXICODONE) 10 mg, oral, Every 4 hours PRN, severe pain or score 7-10 of 10, Starting on Thu03/29/24 at 0804, For 24 hours, PACU & Post-Op, To be administered in the first 24 hours after intrathecal dose given. Given 03/30/2024 4:13 AM CDT 10 mg oxyCODONE IR tablet 10 mg (ROXICODONE) 10 mg, oral, Every 4 hours PRN, severe pain or score 7-10 of 10, Starting on Thu03/30/24 at 0803 Given 03/31/2024 2:13 AM CDT 10 mg Given 03/30/2024 9:26 PM CDT 10 mg Given 03/30/2024 4:54 PM CDT 10 mg oxyCODONE IR tablet 10 mg (ROXICODONE) 10 mg, oral, Every 3 hours PRN, severe pain or score 7-10 of 10, Starting on Thu03/31/24 at 0622 Given 04/03/2024 11:07 AM CDT 10 mg Given 04/03/2024 1:19 AM CDT 10 mg Given 04/02/2024 3:48 AM CDT 10 mg oxyCODONE IR tablet 5 mg (ROXICODONE) 5 mg, oral, Every 4 hours PRN, moderate pain or score 4-6 of 10, Starting on Thu03/29/24 at 0804, For 24 hours, PACU & Post-Op, To be administered in the first 24 hours after intrathecal dose given. Given 03/29/2024 8:57 PM CDT 5 mg oxyCODONE IR tablet 5 mg (ROXICODONE) 5 mg, oral, Every 3 hours PRN, moderate pain or score 4-6 of 10, Starting on Thu03/31/24 at 0622 Given 04/03/2024 5:33 AM CDT 5 mg Given 04/02/2024 10:02 PM CDT 5 mg Given 04/02/2024 7:03 PM CDT 5 mg potassium chloride ER tablet 40 mEq (KLORCON/K-TAB) 40 mEq, oral, Once, On Thu03/30/24 at 2330, For 1 dose, For K 3-3.4 mEq/L - give total of 40 mEq Swallow whole. Do NOT crush, chew, or split tablet., Monitor the following for replacement: Potassium, Replace Potassium per: Standard Schedule Given 03/30/2024 11:32 PM CDT 40 mEq lubuhyieq-[id number] 280-160-250 mg per packet 1 packet (PHOS-NAK) 1 packet, oral, Every 4 hours while awake, First dose on Rhianna 03/31/24 at 0600, For 4 doses, Mix each packet in 75 mL water or juice then administer ordered dose. 250 mg of phosphate is equivalent to 8 mmol of phosphate., Monitor the following for replacement: Phosphorus Given 03/31/2024 7:18 PM CDT 1 packet Given 03/31/2024 3:59 PM CDT 1 packet Given 03/31/2024 9:45 AM CDT 1 packet prochlorperazine injection 5 mg (COMPAZINE) 5 mg, intravenous, Every 6 hours PRN, nausea, vomiting, Starting on Thu03/29/24 at 1946, For 3 days 11 hours, RASS must be -2 or higher to administer. Reassess for nausea/vomiting after at least 10 minutes. If nausea or vomiting persists administer next ordered antiemetic medications (order for antiemetic medication administration ondansetron then haloperidol then prochlorperazine) Given 04/01/2024 9:16 PM CDT 5 mg Given 04/01/2024 1:12 PM CDT 5 mg Given 04/01/2024 3:36 AM CDT 5 mg prochlorperazine injection 5 mg (COMPAZINE) 5 mg, intravenous, Every 6 hours PRN, nausea, vomiting, Starting on 04/02/24 at 0844, RASS must be -2 or higher to administer. Reassess for nausea/vomiting after at least 10 minutes. If nausea or vomiting persists administer next ordered antiemetic medications (order for antiemetic medication administration ondansetron then haloperidol then prochlorperazine) prochlorperazine tablet 5 mg (COMPAZINE) 5 mg, oral, Every 6 hours PRN, nausea, vomiting, Starting on 04/02/24 at 0844 Given 04/03/2024 12:42 PM CDT 5 mg Given 04/02/2024 9:08 PM CDT 5 mg Given 04/02/2024 1:40 PM CDT 5 mg scopolamine base 1 mg over 3 days 1 patch (TRANSDERM SCOP) 1 patch, transdermal, Administer over 72 Hours, Every 72 hours, First dose on Thu03/29/24 at 0700, For 1 dose, Pre-Op, Contains 1.5 mg to deliver 1 mg/72 hours. Medication Applied 03/29/2024 7:21 AM CDT 1 patch Behind Left Ear sodium chloride 0.9 % injection 10-20 mL 10-20 mL, intravenous, During hospitalization, line care, Prior to discharge, Starting on Thu04/03/24 at 0927, For 1 dose, Implanted Vascular Access Device (IVAD) Venous Non-Valved: Flush 10 mL per port/lumen followed by heparin flush prior to discharge. tamsulosin 24 hr capsule 0.4 mg (FLOMAX) 0.4 mg, oral, Daily, First dose on Thu03/31/24 at 0900, Swallow whole. Do NOT crush, chew or open capsule. Given 04/03/2024 8:12 AM CDT 0.4 mg Given 04/02/2024 8:29 AM CDT 0.4 mg Given 04/01/2024 8:15 AM CDT 0.4 mg documented in this encounter Active and Recently Administered Medications Times are shown in CDT. Scheduled Medication Order 04/01/2024 04/02/2024 04/03/2024 acetaminophen tablet 650 mg (TYLENOL) 650 mg, oral, Every 6 hours, First dose on Thu03/30/24 at 0000, Not to exceed 4 grams in 24 hours. 0038 (Given - Provider: Nkechi Love R.N.)0815 (Given - Provider: Andreea Darnell R.N.)1425 (Given - Provider: Andreea Darnell R.N.)2116 (Given - Provider: Lucas Hogan R.NSolitario) 0218 (Given - Provider: Lucas Hogan R.N.)0829 (Not Given - Provider: Andreea Darnell R.N. - Reason: Patient/family refused)1342 (Given - Provider: Geraldo Pena RBillie.)1903 (Given - Provider: Geraldo Pena R.N.) 0119 (Given - Provider: Rajan Nicole RSolitarioN.)0732 (Given - Provider: Chetna Ward RSolitarioNSolitario)1400 (Canceled Entry - Provider: Andreea Darnell R.N.) buPROPion XL 24 hr tablet 300 mg (WELLBUTRIN XL) 300 mg, oral, Every morning, First dose on Thu03/30/24 at 0900, Swallow whole. Do NOT crush, chew, or split tablet. 0815 (Given - Provider: Andreea Darnell R.N.) 0829 (Given - Provider: Andreea Darnell R.N.) 0812 (Given - Provider: Andreea Darnell R.N.) enoxaparin injection 40 mg (LOVENOX) 40 mg, subcutaneous, Daily at bedtime, First dose on Thu03/30/24 at 2100, Begin education 2122 (Given - Provider: Lucas Hogan R.N.) 2107 (Given - Provider: Geraldo Pena R.N.) ketorolac injection 15 mg (TORADOL) () 15 mg, intravenous, Every 6 hours scheduled, First dose (after last modification) on Rhianna 03/31/24 at 0745, For 2 days, Adult IV push rate: Over 15 seconds. Peds IV push rate: Over 1 minute. Doses > 15 mg IV/IM are discouraged due to lack of additional analgesic benefit. 0039 (Not Given - Provider: Nkechi Love R.N. - Reason: Patient/family refused)0403 (Given - Provider: Nkechi Love R.N. - Comment: per pt request)1007 (Given - Provider: Andreea Darnell R.N.)1521 (Given - Provider: Andreea Darnell R.N.) lamoTRIgine ER 24 hr tablet 200 mg (LaMICtaL XR) 200 mg, oral, Daily, First dose on Thu03/30/24 at 0900, Swallow whole. Do NOT crush, chew, or split tablet. 0819 (Given - Provider: Andreea Darnell R.N.) 0829 (Given - Provider: Andreea Darnell R.N.) 0812 (Given - Provider: Andreea Darnell R.N.) lidocaine 5 % 1 patch (LIDODERM) 1 patch, transdermal, Administer over 12 Hours, Daily, First dose on Thu04/03/24 at 0900, Remove after 12 hours. 1014 (Not Given - Provider: Andreea Darnell R.N. - Reason: Patient/family refused) magnesium oxide tablet 400 mg (MAG-OX) () 400 mg, oral, 2 times daily before morning and evening meals, First dose on Thu03/30/24 at 0700, For 3 days 0607 (Not Given - Provider: Nkechi Love R.N. - Reason: Contraindicated)1521 (Given - Provider: Andreea Darnell R.N.) potassium chloride ER tablet 40 mEq (KLORCON/K-TAB) 40 mEq, oral, Once, On Thu04/01/24 at 0100, For 1 dose, For K 3-3.4 mEq/L - give total of 40 mEq Swallow whole. Do NOT crush, chew, or split tablet., Monitor the following for replacement: Potassium, Replace Potassium per: Standard Schedule 0819 (Not Given - Provider: Andreea Darnell R.N. - Reason: Order parameters not met) tamsulosin 24 hr capsule 0.4 mg (FLOMAX) 0.4 mg, oral, Daily, First dose on Thu03/31/24 at 0900, Swallow whole. Do NOT crush, chew or open capsule. 0815 (Given - Provider: Andreea Darnell R.N.) 0829 (Given - Provider: Andreea Darnell R.N.) 0812 (Given - Provider: Andreea Darnell R.N.) PRN Medication Order 04/01/2024 04/02/2024 04/03/2024 cyclobenzaprine tablet 5 mg (FLEXERIL) (CANCELED) 5 mg, oral, 3 times daily PRN, muscle spasms, Starting on 04/02/24 at 0604 0829 (Given - Provider: Andreea Darnell R.N.)2206 (Given - Provider: Geraldo Pena R.N.) heparin flush 500-1,000 Units (COMPLETED) 500-1,000 Units, intra-catheter, During hospitalization, line care, Prior to discharge, Starting on Thu04/03/24 at 0927, For 1 dose, Implanted Vascular Access Device (IVAD) Venous Non-Valved: flush 5 mL (500 units) per port/lumen following saline flush prior to discharge. 0954 (Given - Provider: Matt Cardona R.N.) HYDROmorphone (PF) injection 0.2 mg (DILAUDID) 0.2 mg, intravenous, Every 2 hour PRN, severe pain or score 7-10 of 10, breakthrough pain, Starting on Thu03/29/24 at 1946, For breakthrough pain unrelieved 30 minutes after PRN oral pain medication is used; or if unable to take oral pain medication. 0304 (Given - Provider: Lucas Hogan R.N.) ibuprofen tablet 400 mg (MOTRIN) 400 mg, oral, Every 6 hours PRN, moderate pain or score 4-6 of 10, Starting on Thu04/02/24 at 0604, Take with food or milk if GI disturbances occur with use. 0829 (Given - Provider: Andreea Darnell R.N.)1644 (Given - Provider: Meg Russell R.N.) 0533 (Given - Provider: Rajan Nicole R.N.)1242 (Given - Provider: Andreea Darnell R.N.) magnesium oxide tablet 400 mg (MAG-OX) 400 mg, oral, Daily PRN, constipation, Starting on Thu04/02/24 at 0828, For 3 days methocarbamoL tablet 1,000 mg (ROBAXIN) 1,000 mg, oral, 3 times daily PRN, muscle spasms, Starting on Thu03/30/24 at 1756 0815 (Given - Provider: Andreea Darnell R.N.)1425 (Given - Provider: Andreea Darnell RBillie.) 1226 (Given - Provider: Merna Bowen RSolitarioNSolitario) 0241 (Given - Provider: Alayna Longoria RSolitarioN.)1242 (Given - Provider: Andreea Darnell R.N.) nalbuphine injection 2.5 mg (NUBAIN) 2.5 mg, intravenous, Every 4 hours PRN, itching, Starting on Thu03/29/24 at 1740, For 4 doses, PACU & Post-Op ondansetron (PF) injection 4 mg (ZOFRAN) 4 mg, intravenous, Every 6 hours PRN, nausea, vomiting, Starting on [facility] 04/02/24 at 0828, Reassess for nausea or vomiting after at least 10 minutes. If nausea or vomiting persists administer next ordered antiemetic medications (order for antiemetic medication administration ondansetron then haloperidol then prochlorperazine). oxyCODONE IR tablet 10 mg (ROXICODONE)(Linked Group 1) 10 mg, oral, Every 3 hours PRN, severe pain or score 7-10 of 10, Starting on Rhianna 03/31/24 at 0622 0129 (Given - Provider: Nkechi Love RAura)0459 (Given - Provider: Nkechi Love RAura)0815 (See Alternative - Provider: Andreea Darnell R.N.)1206 (See Alternative - Provider: Andreea Darnell R.N.)1745 (See Alternative - Provider: Andreea Darnell R.N.)2119 (Given - Provider: Lucas Hogan R.N.)2125 (See Alternative - Provider: Lucas Hogan RBillie.)2126 (Given - Provider: Lucas Hogan R.N.) 0025 (See Alternative - Provider: Lucas Hogan R.N.)0348 (Given - Provider: Lucas Hogan R.N.)0726 (See Alternative - Provider: Chetna Ward RSolitarioNSolitario)1114 (See Alternative - Provider: Merna Bowen RSolitarioNSolitario)1514 (See Alternative - Provider: Geraldo Pena RAura)1903 (See Alternative - Provider: Geraldo Pena R.Anival)2202 (See Alternative - Provider: Geraldo Pena RAura) 0119 (Given - Provider: Rajan Nicole RAura)0533 (See Alternative - Provider: Rajan Nicole R.N.)1107 (Given - Provider: Merna Bowen RAura) oxyCODONE IR tablet 5 mg (ROXICODONE)(Linked Group 1) 5 mg, oral, Every 3 hours PRN, moderate pain or score 4-6 of 10, Starting on Thu03/31/24 at 0622 0129 (See Alternative - Provider: Nkechi Love R.N.)0459 (See Alternative - Provider: Nkechi Love R.N.)0815 (Given - Provider: Andreea Darnell R.N.)1206 (Given - Provider: Andreea Darnell R.N.)1745 (Given - Provider: Andreea Darnell R.N.)211 (See Alternative - Provider: Lucas Hogan R.N.)212 (Not Given - Provider: Lucas Hogan R.N. - Reason: Other - Comment: 10MG given)2126 (See Alternative - Provider: Lucas Hogan R.N.) 0025 (Given - Provider: Lucas Hogan R.N.)0348 (See Alternative - Provider: Lucas Hogan R.N.)0726 (Given - Provider: Chetna Ward R.N.)1114 (Given - Provider: Merna Bowen R.N.)1514 (Given - Provider: Geraldo Pena R.N.)1903 (Given - Provider: Geraldo Pena R.N.)2202 (Given - Provider: Geraldo Pena R.N.) 0119 (See Alternative - Provider: Rajan Nicole R.N.)0533 (Given - Provider: Rajan Nicole R.N.)1107 (See Alternative - Provider: Merna Bowen R.N.) prochlorperazine injection 5 mg (COMPAZINE) () 5 mg, intravenous, Every 6 hours PRN, nausea, vomiting, Starting on Thu03/29/24 at 1946, For 3 days 11 hours, RASS must be -2 or higher to administer. Reassess for nausea/vomiting after at least 10 minutes. If nausea or vomiting persists administer next ordered antiemetic medications (order for antiemetic medication administration ondansetron then haloperidol then prochlorperazine) 0336 (Given - Provider: Nkechi Love R.N.)1312 (Given - Provider: Geraldo Pena R.N.)2116 (Given - Provider: Lucas Hogan R.N.) prochlorperazine injection 5 mg (COMPAZINE)(Linked Group 2) 5 mg, intravenous, Every 6 hours PRN, nausea, vomiting, Starting on 04/02/24 at 0844, RASS must be -2 or higher to administer. Reassess for nausea/vomiting after at least 10 minutes. If nausea or vomiting persists administer next ordered antiemetic medications (order for antiemetic medication administration ondansetron then haloperidol then prochlorperazine) 0859 (See Alternative - Provider: Andreea Darnell R.N.)1340 (See Alternative - Provider: Geraldo Pena R.N.)2108 (See Alternative - Provider: Geraldo Pena R.N.) 1242 (See Alternative - Provider: Andreea Darnell R.N.) prochlorperazine tablet 5 mg (COMPAZINE)(Linked Group 2) 5 mg, oral, Every 6 hours PRN, nausea, vomiting, Starting on 04/02/24 at 0844 0859 (Given - Provider: Andreea Darnell R.N.)1340 (Given - Provider: Geraldo Pena R.N.)2108 (Given - Provider: Geraldo Pena R.N.) 1242 (Given - Provider: Andreea Darnell R.N.) sodium chloride 0.9 % injection 10-20 mL 10-20 mL, intravenous, During hospitalization, line care, Prior to discharge, Starting on 04/03/24 at 0927, For 1 dose, Implanted Vascular Access Device (IVAD) Venous Non-Valved: Flush 10 mL per port/lumen followed by heparin flush prior to discharge. Linked Groups Order Group 1: oxyCODONE IR tablet 5 mg (ROXICODONE)Jump to med 5 mg, oral, Every 3 hours PRN, moderate pain or score 4-6 of 10, Starting on Rhianna 03/31/24 at 0622 Or oxyCODONE IR tablet 10 mg (ROXICODONE)Jump to med 10 mg, oral, Every 3 hours PRN, severe pain or score 7-10 of 10, Starting on Rhianna 03/31/24 at 0622 Group 2: prochlorperazine injection 5 mg (COMPAZINE)Jump to med 5 mg, intravenous, Every 6 hours PRN, nausea, vomiting, Starting on 04/02/24 at 0844, RASS must be -2 or higher to administer. Reassess for nausea/vomiting after at least 10 minutes. 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 [address] [place] [id number] PCP - General 03/04/24 Roger Sorensen Therapist 02/14/20 documented as of this encounter
--- OUTSIDE RECORDS SUMMARY | 2024-05-25 00:12 | XMS_ITS | Encounter Summary ---
Author Organization [facility] Address [address] [place] [address] Care Team Providers Care Director Social Welfare Name Role Phone Kayla Rowland APRN, C.N.P. 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] Procedures MD INS IMPL IART INFUSION PUMP MD BIOPSY LIVER WEDGE MD US GUIDE INTRAOPERATIVE MD ABLT OPN LIVER TMR RF MD CHOLECYSTECTOMY MD COLECTOMY PARTL W ANASTOMOSIS MD COLECTOMY PARTL CLPRCT&COLSTMY HEPATIC ARTERY INFUSION PUMP PLACEMENT MULTIPLE WEDGE RESECTIONS LIVER ULTRASOUND LIVER ABLATION LESION LIVER CHOLECYSTECTOMY SIGMOID COLECTOMY WITH ANASTOMOSIS Referral ID Status Reason Start Date Expiration Date Visits Re quested Visits Authorized [id number] 1 1 Encounter Details Date Type Department Care Team (Late st Contact Info) Description 03/29/2024 7:25 AM CDT - 03/29/2024 5:11 PM CDT Surgery RST ROM[facility] MAIN OR [address] [place] [phone] Chris Viera D.O., M.B.A. [address] [place] [phone] HEPATIC ARTERY INFUSION PUMP PLACEMENT. Social History Tobacco Use Types Packs/Day Years Used Date Smoking Tobacco: Former Cigarettes 1 - 08/18/2015 Smokeless Tobacco: Never Alcohol Use Standard Drinks/Week Comments Not Currently 0 (1 standard drink = 0.6 oz pur e alcohol) [facility] Utilities Answer Date Recorded In [...] often do you attend chur ch or confucianist services? Never 12/06/2021 Do you belong to [...] Answer Date Recorded PHQ-2 Score 1 11/25/2023 [facility] - Occupational Stress Questionnaire Answer Date [...] Master's degree (e.g., MA, MS, Aba, MEd, CREDIT UNION TELLER, GAMALIEL) 08/15/2019 Sex and Gender Information Value Date Recorded Sex Assigned at Male 09/09/2023 12:48 PM [employer] Gender Identity Male 08/15/2019 2:16 PM CDT Sexual Orientation Straight 08/15/2019 2: 16 PM CDT documented as of this encounter Last Filed Vital Signs Vital Sign Reading Time Taken Comments Blood Pressure 136/97 03/29/2024 7:03 AM CDT Pulse 76 03/29/2024 7:03 AM CDT Temperature 36.9 ??C (98.4 ??F) 03/29/2024 7:03 AM CD T Respiratory Rate - - Oxygen Saturation 97% 03/29/2024 7:03 AM CDT Inhaled Oxygen Concentration - - Weight 102 kg (225 lb 1.4 oz) 03/29/2024 6:56 AM CDT Height 172.7 cm (5' 8) 03/29/2024 6:22 AM CDT Body Mass Index 32.95 03/29/2024 6:22 AM CDT documented in this encounter Discharge Summaries * Genesis Suresh P.A.-C. - 04/03/2024 1:22 PM CDT Images from the original note were not included. DISCHARGE SUMMARY BRIEF OVERVIEW Hospital: [facility] Discharge Provider: Chris Viera D.O. Primary Care Providers: Kayla Rowland APRN, C.N.PSolitario (General) [address] [place] [phone] Primary Care Provider Primary Care Provider Admission [...] ANTERIOR WITH ANASTOMOSIS., CONSTRUCTION ILEOSTOMY., SIGMOIDOSCOPY FLEXIBLE Thiels, Chris A, D.OCarlin Jerez Ryan D, M.D.Lakshmi Narasimhan, Avantika, M.B.B.S.Warner, Susanne G, M.D.Tej Quintanilla M.B., Ch.B., M.P.H.Salvador Ferreira M.D.Christenson, Rachel V., [...] OVERFLOW [facility] Oncology 04/26/2024 8:40 AM REUBEN BARCENAS RN PORT DRAW ROEI Infusion Therapy 04/26/2024 10:40 AM Patsy Bowser APRN, C.N.P., M.S. Oncology 04/26/2024 11:20 AM ONC NURSE JOSEFA BAILEY [facility] Oncology 04/26/2024 1:45 PM ONC CHAIR CHEMO 33 [facility] Oncology 05/10/2024 7:20 AM Patsy Bowser APRN C.N.P., M.S. Oncology 05/10/2024 8:45 AM ONC CHAIR CHEMO 32 [facility] Oncology For appointment details refer to your Patient Appointment Guide. 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 The patient was admitted to [facility]. The patient was taken to theoperating room [...] in 1 hotspot field: Not applicable Tumor [place] Score: Not applicable Treatment Effect: Present, with [...] through Care Everywhere. * Ibuprofen (By mouth) (Polish) * Lidocaine (On the skin) (Polish) * Lidocaine/Prilocaine (On the skin) (Polish) * Magnesium Oxide (By mouth) (Polish) * Methocarbamol (By mouth) (Polish) * Oxycodone, Rapid Release (By mouth) (Polish) * Pantoprazole (By mouth) (Polish) * Prochlorperazine (By mouth) (Polish) * Tamsulosin (By mouth) (Polish) documented in this encounter Medications at Time [...] oxyCODONE (ROXICODONE) 5 mg immediate release tabletIndications:Ac moapa Pain Exception Take 1 tablet (5 mg total) by mouth every 3 (three) hours as needed for moderate pain or score 4-6 of 10 Indication: Acute Pain Exception. 40 tablet 04/03/2024 05/08/2024 tamsulosin (FLOMAX) 0.4 mg 24 hr capsule Take 1 capsule (0.4 mg total) by mouth daily. 30 capsule 1 04/03/2024 05/20/2024 documented as of this encounter Progress Notes * Doris Sainz M.B.BSolitarioSSolitario - 04/03/2024 7:29 AM CDT SUBJECTIVE Postop [...] I/O Date 04/02/24 07 - 04/03/24 0659 04/03/24 0700 - 04/04/24 0659 Shift 5772-8614 3266-0642 5220-1196 24 Hour Total 9176-3574 7776-2239 0646-4439 24 Hour Total INTAKE P.O. 640 240 880 Shift Total(mL/kg) 640(6.2) 240(2.3) 880(9) OUTPUT Urine(mL/kg/hr) 650(0.8) 1000(1.2) 400(0.5) 2050(0.9) Intermittent Catheter: No Void/Retention (mL) 650 5263 772 6287 Drains 35 15 10 60 Stool 25 25 Shift Total(mL/kg) 710(6.9) 1015(9.9) 410(4.2) 2135(21.7) [facility] -70 -775 -485 -7034 Weight (kg) 103 103 98.3 98.3 98.3 [...] PARMINDER drain per CRS No anticoagulation at DC Patient is being cared for by the [facility] team. Please page [phone] ([facility]ylin) with any questions. Plan and assessment were discussed with Dr. Viera, who was in agreement. JOHN Corrales PGY-1 General Surgery * Doris Sainz M.B.B.S. - 04/02/2024 7:17 AM CDT SUBJECTIVE Postop [...] 0659 04/02/24 07 - 04/03/24 0659 Shift 7769-3423 6164-3394 8372-3258 24 Hour Total 7923-8965 7855-1598 5422-1956 24 Hour Total INTAKE P.O. 120 131 860 7551 Shift Total(mL/kg) 120(1.2) 700(6.9) 750(7.3) 1570(15.2) OUTPUT Urine(mL/kg/hr) 1000(1.2) 1575(1.9) 600(0.7) 3175(1.3) Urine 175 175 Intermittent Catheter: No Void/Retention (mL) 1000 8510 471 8490 Drains 48 35 20 103 Stool 350 150 150 650 Shift Total(mL/kg) 1398(13.8) 1760(17.4) 770(7.5) 3928(38.1) [facility] -1278 -1060 -20 -7846 Weight (kg) 101.3 101.3 103 103 103 [...] for by the [facility] team. Please page [phone] (Aylin) with any questions. Plan and assessment were discussed with Dr. Viera, who was in agreement. JOHN Corrales PGY-1 General Surgery * Susu Almanza V., D.O. - 04/01/2024 9:46 AM CDT SUBJECTIVE [...] Pulse Rate: [81-93] 93 I/O Date 03/31/24 07 - 04/01/24 0659 04/01/24 0700 - 04/02/24 0659 Shift 8613-5726 0586-3934 4410-7987 24 Hour Total 5970-8569 2150-6250 5812-2454 24 Hour Total INTAKE P.O. 990 384 0272 Shift Total(mL/kg) 720(7.1) 300(3) 1020(10.1) OUTPUT Urine(mL/kg/hr) 400(0.5) 1200(1.5) 1600(0.7) Urine 0 0 Intermittent Catheter: No Void/Retention (mL) 400 1200 1600 Drains 25 20 45 Stool 150 150 300 Shift Total(mL/kg) 425(4.2) 1370(13.5) 150(1.5) 1945(19.2) NET 295 -1070 -150 -925 Weight (kg) 101.3 101.3 101.3 [...] for by the [facility] team. Please page [phone] ([facility]in) with any questions. Plan and assessment were discussed with Dr. Viera, who was in agreement. JOHN Corrales PGY-1 General Surgery * Ayesha Peralta R.N., CWON - 03/31/2024 1:13 PM CDT WOC RN attempted to visit patient for Day 2 education ileostomy. Patient is eating lunch. Visitors state another [facility] RN has attempted twice today. As three [...] Caprini Score = 10 * Doris Sainz M.BSolitarioB.S. - 03/31/2024 6:44 AM CDT SUBJECTIVE Postop [...] L/min Pulse Rate: [57-81] 72 I/O Date 03/30/24 07 - 03/31/24 0659 03/31/24 07 - 04/01/24 0659 Shift 8463-1054 4766-5673 0062-0807 24 Hour Total 1664-8991 3336-1776 9659-1314 24 Hour Total INTAKE P.O. 1000 1000 2000 Shift Total(mL/kg) 1000(9.8) 1000(9.8) 2000(19.6) OUTPUT Urine(mL/kg/hr) 450(0.6) 1350(1.7) 800 2600 Urine 350 350 Intermittent Catheter: No Void/Retention (mL) 5250 264 5564 Output (mL)- Urine ([REMOVED] Indwelling Urinary Catheter Coude 14 Fr.) 450 450 Drains 45 70 15 130 Stool 50 0 50 Shift Total(mL/kg) 545(5.3) 1420(13.9) 815(8) 2780(27.2) NET 214 -846 -741 -918 Weight (kg) 102.1 102.1 102.1 102.1 102.1 [...] x4, LAR with anastomosis and DLI on 6/11 for metastaticCRC. Overall progressing well. No acute [...] for by the [facility] team. Please page [phone] ([facility]in) with any questions. Plan and assessment were discussed with Dr. Viera, who was in agreement. JOHN Corrales PGY-1 General Surgery * Tej Quintanilla M.B., Rich, M.P.H. - 03/30/2024 5:20 PM CDT I [...] Alarcon, Rich, M.P.H. CT CT Job ID: [id number] * Favian Lopez M.S.N., R.N., SHAYY - 03/30/2024 10:23 AM CDT SUBJECTIVE REASON FOR VISIT Postoperative visit Patient Coping: Appropriate and Overwhelmed. Fiancee Suresh supportive and present. She will be doing pouching changes. OBJECTIVE Physical Exam Ostomy (NEW) Ileostomy RLQ (Active) Site Assessment Red;Budded Stoma Size 1-1/8 Skin Assessment Intact Skin Care Water Pouching System (Stomal Appliance) Status Changed Changed by Wound heddle machine operator;Family;Observed Suresh observed. Patient looked occasionally but he is still trying to cope with the new stoma. He did observe with the mirror. Suresh very supportive and willing. Pouching System Removed OR system Pouching System [employer] [place] [phone] Patient may need convexity in the near future once abdomen softens. Ongoing management Nursing;Patient/caregiver;Wound/green lumber grader Output Description Stool Stool Output (mL) 50 mL ASSESSMENT / PLAN WOC nurse continuing to follow. Day 1 teach complete Page [facility] [phone] M-F 6:30AM-2:30PM with questions or leakage issues. Thursday pager [phone] 8:00AM-2:30PM. * Fiona Pierre Pharm.D., R.Ph., [facility] - 03/30/2024 10:14 AM CDT Pharmacist Progress [...] further pain management per primary service. Pain 4/10 this morning. Medications and laboratory data have been reviewed. Pharmacy will continue to follow for medicationuse optimization. Fiona Pierre Pharm.D., R.Ph., BCPS * Susu Almanza D.O. - 03/30/2024 7:28 AM CDT SUBJECTIVE Mr. [...] 56 I/O Date 03/29/24 07 - 03/30/24 0603/30/24 07 - 03/31/24 0659 Shift 6526-6696 7810-8929 9277-9097 24 Hour Total 1754-0351 4427-1282 2784-3446 24 Hour Total INTAKE P.O. 300 450 750 500 500 I.V.(mL/kg) 30(0.3) 30(0.3) Crystalloid Bolus 10 10 Maintenance IV 4200 700 753.8 5653.8 Intermittent Medications 350 100 450 Shift Total(mL/kg) 4590(45) 1100(10.8) 1203.8(11.8) 6893.8(67.5) 500(4.9) 500(4.9) OUTPUT Urine(mL/kg/hr) 400(0.5) 525(0.6) 650(0.8) 1575(0.6) Catheterized Urine 400 100 500 Preprocedure Void Time 1 x 1 x Output (mL)- Urine (Indwelling Urinary Catheter Coude 14 Fr.) 828 096 9511 Emesis or Enteric Tube 25 25 Drains [...] for by the [facility] team. Please page [phone] ([facility]) with any questions. Plan and assessment [...] 04/03/2024 9:56 AM CDTAssociated Order(s): Perform central gasoline attendant: De-access port Perform central gasoline attendant: De-access port Performed by: Matt Cardona R.N. Authorized by: Doris Sainz, M.B.B.SSolitario Right chest ivad de-accessed after flushing with [...] well. Remains safe. * Maddie Ruiz R.N., [facility] - 04/01/2024 3:24 PM CDT SUBJECTIVE REASON [...] 2 day wear time) Changed by Patient;Family;Wound heddle machine operator;Supervised Pouching System Removed Izaiah [address] wafer, 7805 moldable barrier, 61135 pouch Pouching System [employer] [place] [address] wafer, 7805 moldable barrier, 06820 pouch Ongoing management Patient/caregiver;Nursing Output Description Soft;Brown Stool Output (mL) 100 mL ASSESSMENT / PLAN Consult complete, patient has met ostomy specialty service criteria. Patient will DC home self carethis weekend. green lumber grader completed education with patient and fiance. Fiance demonstrated teachback with placing the pouch. They have 4 sets of supplies for DC. A DME for ostomy supplies is pended formerly [facility] to sign at discharge. Page [facility] [phone] M-F 6:30AM-2:30PM with questions or leakage issues. Thursday pager [phone] 8:00AM-2:30PM. documented in this encounter OR Notes * Op Note - Chris Viera D.O., M.B.ASolitario - 03/29/2024 9:06 AM CDT Pre-op Diagnosis [...] caudate lesion. In additional lesion in segment [place] was resected with a wedge resection. A lesion segment 7 was also resected. His small superficial punctate lesion on the capsule of segment 7 was resected with a small wedge resection. He is performed with a Chery crush clamp technique and LigaSure with Aquamantys for hemostasis. Dustin maneuver was not required. There was no [...] placed. Patient tolerated the procedure well. A nurses assistant actively participated and was necessary for one or more of the following: opening, exposure and visualization during the case, maintaining hemostasis, wound closure resulting in itssafe and expeditious completion. Chris Viera D.O., M.B.A. * Op Note - Tej Quintanilla M.B., Ch.BSolitario, M.P.H. - 03/29/2024 9:06 AM CDT Pre-op Diagnosis Malignant Neoplasm Of Rectum (HCC),Secondary Malignant Neoplasm Liver (HCC) Post-op Diagnosis Malignant Neoplasm Of Rectum (HCC),Secondary Malignant Neoplasm Liver (HCC) Halver Machine Operator A nurses assistant actively participated and was necessary for one [...] Yes Tumor location: Rectum, NOS Rosa Minor, Ch.B., M.P.H. documented in this encounter Miscellaneous Notes * Hospital Course - Genesis Suresh P.A.-C. - 03/30/2024 4:39 PM CDT G2 [id number] metastatic colorectal adenocarcinoma status post exploratory laparotomy, multiple liver wedge resections, multiple liver ablation, cholecystectomy, low anterior resection with anastomosis, diverting loop ileostomy, hepatic artery infusion pump placement, 03/29/2024 . The patient was admitted to [facility]. The patient was taken to theoperating room [...] in 1 hotspot field: Not applicable Tumor [place] Score: Not applicable Treatment Effect: Present, with [...] Division of Colon and Rectal Surgery in [place], [place] [address] [place] [phone] Armida Bullock APRN, C.N.P., M.S.N. 200 [place] [phone] 06/07/2024 9:20 AM CDT Lab Department of Infusion Therapy in [place], [place] [address] [place] [phone] Mariluz Soler M.D. [address] [place] [phone] 06/07/2024 11:20 AM CDT Office Visit Department of Oncology in [place], [place] [address] [place] [phone] Mariluz Soler M.D. [address] [place] [phone] 06/07/2024 1:00 PM CDT Infusion Department of Oncology in [place], [place] [address] [place] [phone] Mariluz Soler M.D. [address] [place] [phone] 06/17/2024 8:30 AM CDT Appointment Department of Laboratory Medicine and Pathology, [facility], in [place], [place] [address] [place] [phone] Anny Mcneill M.D. [address] [place] [phone] 06/17/2024 9:00 AM CDT Lab Department of Infusion Therapy in [place], [place] [address] [place] [phone] Anny Mcneill M.D. [address] [place] [phone] 06/17/2024 10:45 AM CDT Procedure visit Department of Urology in [place], [place] [address] [place] [phone] Anny Mcneill M.D. [address] [place] [phone] 06/17/2024 1:45 PM CDT Comprehensive Visit Department of Urology in [place], [place] [address] [place] [phone] Ayesha Romero P.A.-C. [address] [place] [phone] 06/17/2024 4:15 PM CDT Comprehensive Visit Department of Urology in [place], [place] [address] [place] [phone] Scotty Tom APRN, CSolitarioNSolitarioP. [address] [place] [phone] Scheduled Referrals Name Type Priority Associated Diagnoses [...] diet Diet Worsening( 11:49 AM CDT) Yes Markham, Nadia Boone R.N. Note: 02/14/20 - Has one regular meal daily (supper), otherwise not as hungry and snacks on fruit in AM, chips in evening. Will readdress his dietary goals and see if this makes a difference in his mood. Read Managing My Depression General Improving( 11:43 AM CDT) Yes Markham, Nadia Boone R.N. Note: P. 46-48 Create a relapse prevention plan. Spend time with my dog again. General On track( 020 11:43 AM CDT) Yes Markham, Nadia Boone R.N. Have some time to himself regularly. General On track( 11:47 AM CDT) Yes Markham, Nadia Boone R.N. Note: 01/24/20 - More structure to his day. 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 Recognizing he needs more personal time. Meet with therapist regularly General On track( 11:43 AM CDT) Yes Markham, Mihcael McgheeN. Note: Dr. Pavan Sorensen, with [facility] in [place], [place]. Take your medication every day Lifestyle On track( 11:49 AM CDT) No Markham, Michael McgheeN. Note: Increased Wellbutrin to 300 mg daily 02/09/20. PHQ-9 Total Score (max 27) < 5 Symptom Management 3(04/06/2024 7:51 PM CDT) No Markham, Nadia Boone, R.N. Note: Enrollment PHQ9=18 on 08/16/19 Patient goals at enrollment: 1. I'd like to have my depression be less intense. 2. I'd like to learn some coping strategies. 3. I'd like to learn how to keep my depression from flaring back again documented as of this encounter Procedures Procedure Name Priority Date/Time Associated Diagnosis Comments PERFORM CENTRAL CHEMICAL ENGINEER Routine 04/03/2024 9:56 AM CDT CBC WITHOUT [...] disease in the chest. Genesis Suresh P.A.-C. IMMary CT PROCEDURES * CT Abdomen Pelvis with [...] P.A.-C. IMG CT PROCEDURES * Perform central gasoline attendant: De-access port (04/03/2024 9:56 AM CDT) Narrative Matt Cardona R.N. - 04/03/2024 9:56 AM CDT Matt Cardona R.N. ? 04/03/2024 ??9:58 AM Perform central gasoline attendant: De-access port Performed by: Matt Cardona R.N. Authorized by: Doris Sainz M.B.BSolitarioSSolitario ?? Doris LeeBSolitarioSSolitario PRO CEDURE/MINOR SURGICAL ORDERABLES * (ABNORMAL) Comprehensive Metabolic Panel (04/02/2024 8:36 PM CDT) Potassium, S 3.6 3.6 - 5.2 [...] CDT Genesis Suresh P.A.-C. LAB BLOOD ADD-ON [facility] [address] [place] [address], [place] DTL [facility] [address] [place] [address] * Phosphorus Inorganic (04/02/2024 8:36 PM CDT) Pathologist [facility] Phosphorus (Inorganic), S 3.9 2.5 - 4.5 mg/dL 04/02/2024 9:16 PM CDT DTL Blood (Blood, Venous) 04/02/2024 8:36 PM CDT 04/02/2024 9:02 PM CDT Genesis Suresh P.A.-C. LAB BLOOD ADD-ON Performing Organization Address [facility]/ZIP Co de Phone Number [facility] 200 [place], [place] [phone] [place] [address] DTL [facility] 200 [place] [address] * (ABNORMAL) CBC without Differential (04/02/2024 8:36 PM CDT) Pathologist [facility] Hemoglobin 11.3(L) 13.2 - 16.6 g/dL 04/02/2024 [...] P.A.-C. LAB BLOOD ADD-ON Performing Organization Address City/[facility]/ZIP Co de Phone Number [facility] [place] [address] [place] [address] * Prothrombin Time (PT) (04/02/2024 3:49 AM CDT) Pathologist [facility] Prothrombin Time, P 10.9 9.4 - 12.5 sec 04/02/2024 5:02 AM CDT DT INR 1.0 0.9 - 1.1 04/02/2024 5:02 AM CDT DT Comment: ----ADDITIONAL INFORMATION---- Standard intensity warfarin therapeutic range: 2.0 to 3.0 ?? High intensity warfarin therapeutic range: 2.5 to 3.5 Blood (Blood, Venous) 04/02/2024 3:49 AM CDT 04/02/2024 4:36 AM CDT Uriel Sibley APRNNMarco., M.S.N. LAB BLOOD ADD-ON [facility] [place] 200 [place], [place] [phone] [place] [address] 200 [place] [address] * Phosphorus Inorganic (04/02/2024 3:49 AM CDT) [facility] Phosphorus (Inorganic), S 3.4 2.5 - 4.5 mg/dL 04/02/2024 5:10 AM CDT DT Blood (Blood, Venous) 04/02/2024 3:49 AM CDT 04/02/2024 4:53 AM CDT Tasia Sibley APRN.N.P., M.S.N. LAB BLOOD ADD-ON [facility] [place] [address] 200 [place] [address] * (ABNORMAL) Hepatic Function Panel (04/02/2024 3:49 [...] Metzger APRN C.N.P., M.S.N. LAB BLOOD ADD-ON [address] [address], [place] [address] * (ABNORMAL) CBC without Differential (04/02/2024 3:49 AM CDT) Pathologist [facility] Hemoglobin 11.1(L) 13.2 - 16.6 g/dL 04/02/2024 [...] CDT 04/02/2024 4:34 AM CDT Fiona Metzger APRN C.N.P., M.S.N. LAB BLOOD ADD-ON [facility] [place] [address] [place] [address], [facility] [place] 200 [place] [address] * (ABNORMAL) Basic Metabolic Panel (04/02/2024 3:49 AM CDT) Pathologist [facility] Potassium, S 3.6 3.6 - 5.2 mmol/L [...] M.S.N. LAB BLOOD ADD-ON Performing Organization Address City/[facility]/ZIP Co de Phone Number [facility] [place] 200 [place] [address] * Magnesium (04/02/2024 3:49 AM CDT) Magnesium, S 2.0 1.7 - 2.3 mg/dL 04/02/2024 5:10 AM CDT DTL Blood (Blood, Venous) 04/02/2024 3:49 AM CDT 04/02/2024 4:53 AM CDT Fiona Metzger APRN, C.N.P., M.S.N. LAB BLOOD ADD-ON Performing Organization Address City/[facility] Co de Phone Number [facility] [place] 200 [place], [place] [phone] [place] [address] * (ABNORMAL) CBC without Differential (04/01/2024 7:30 [...] 7:30 AM CDT 04/01/2024 8:11 AM CDT Uriel Sibley APRNNMarco., M.S.N. LAB BLOOD ADD-ON Performing Organization Address [facility] Co de Phone Number [facility] [place] [address] [place] [address] * Prothrombin Time (PT) (04/01/2024 3:43 AM [...] CDT 04/01/2024 3:59 AM CDT Uriel Sibley APRNN.Murtaza., M.S.N. LAB BLOOD ADD-ON Performing Organization Address City/[facility]/ZIP Co de Phone Number [facility] [place] [address] [place] [address] * Phosphorus Inorganic (04/01/2024 3:43 AM CDT) Phosphorus (Inorganic), S 3.9 2.5 - 4.5 mg/dL 04/01/2024 4:29 AM CDT DTL Blood (Blood, Venous) 04/01/2024 3:43 AM CDT 04/01/2024 4:13 AM CDT Tasia Sibley APRN.N.P., M.S.N. LAB BLOOD ADD-ON [facility] [place] [address] [place] [address], [facility] [place] [address] [place] [address] * (ABNORMAL) Hepatic Function Panel (04/01/2024 3:43 [...] AM CDT 04/01/2024 4:13 AM CDT Fiona Mervat Metzger APRN, C.N.P., M.S.N. LAB BLOOD ADD-ON [facility] [place] 200 [place] [address], [facility] [place] 200 [place] [address] * (ABNORMAL) CBC without Differential (04/01/2024 3:43 [...] AM CDT 04/01/2024 3:59 AM CDT Fiona Crowell Domenica ST[address] C.N.P., M.S.N. LAB BLOOD ADD-ON [facility] [place] [address] [place] [address], [facility] 200 [place] [address] * (ABNORMAL) Basic Metabolic Panel (04/01/2024 3:43 AM CDT) Pathologist [facility] Potassium, S 3.9 3.6 - 5.2 mmol/L [...] CDT 04/01/2024 4:13 AM CDT Fiona Metzger APRN C.N.P., M.S.N. LAB BLOOD ADD-ON [facility] [address] [place] [address], [facility] [place] [address] [place] [address] * Magnesium (04/01/2024 3:43 AM CDT) Magnesium, S 2.1 1.7 - 2.3 mg/dL 04/01/2024 4:29 AM CDT DTL Blood (Blood, Venous) 04/01/2024 3:43 AM CDT 04/01/2024 4:13 AM CDT Fiona Metzger APRN, C.N.P., M.S.N. LAB BLOOD ADD-ON [facility] [place] [address] [place] [address] * Magnesium (03/30/2024 8:51 PM CDT) Magnesium, S 1.9 1.7 - 2.3 mg/dL 03/30/2024 9:45 PM CDT DTL Blood (Blood, Venous) 03/30/2024 8:51 PM CDT 03/30/2024 9:27 PM CDT Juvencio Abdul P.A.-C., M.S. LAB BLOOD AD D-ON [facility] [place] [address] [place] [address], [facility] 200 [place] [address] * (ABNORMAL) Phosphorus Inorganic (03/30/2024 8:51 PM CDT) Phosphorus (Inorganic), S 2.3(L) 2.5 - 4.5 mg/dL 03/30/2024 9:45 PM CDT DTL Blood (Blood, Venous) 03/30/2024 8:51 PM CDT 03/30/2024 9:27 PM CDT Juvencio Abdul P.A.-C., M.S. LAB BLOOD AD D-ON [facility] [place] [address] [place] [address], [facility] 200 [place] [address] * (ABNORMAL) Hepatic Function Panel (03/30/2024 8:51 [...] Abdul P.A.-C., M.S. LAB BLOOD AD D-ON [address] [address], [facility] [address] [address] * (ABNORMAL) Basic Metabolic Panel (03/30/2024 8:51 PM CDT) Potassium, S 3.5(L) 3.6 - 5.2 mmol/L [...] Abdul P.A.-C., M.S. LAB BLOOD AD D-ON [facility] [place] [address] [place], [place] [id number] [place] [address] [facility] [place] [address] [place] [address] * (ABNORMAL) CBC without Differential (03/30/2024 8:51 PM CDT) [facility] Hemoglobin 12.3(L) 13.2 - 16.6 g/dL 03/30/2024 [...] CDT 03/30/2024 9:13 PM CDT Juvencio Abdul P.A.-C. M.S. LAB BLOOD AD D-ON Performing Organization Address City/[facility] Co de Phone Number [facility] [place] [address] [place], [place] [id number] [place] [address] [facility] [place] [address] [place] [address] * (ABNORMAL) Prothrombin Time (PT) (03/30/2024 4:12 AM CDT) Prothrombin Time, P 15.0(H) 9.4 - 12.5 sec 03/30/2024 5:23 AM CDT DTL INR 1.4 0.9 - 1.1 03/30/2024 5:23 AM CDT DTL Comment: ----ADDITIONAL INFORMATION---- Standard intensity warfarin therapeutic range: 2.0 to 3.0 ?? High intensity warfarin therapeutic range: 2.5 to 3.5 Blood (Blood, Venous) 03/30/2024 4:12 AM CDT 03/30/2024 5:01 AM CDT Eloy Banks M.D. LAB BLOOD ADD-ON Performing Organization Address City/[facility]/ZIP Co de Phone Number [facility] [place] [address] [place], [place] [phone] [place] [address] DTL [facility] 200 [place] [address] * (ABNORMAL) Hepatic Function Panel (03/30/2024 4:12 [...] CDT Eloy Banks M.D. LAB BLOOD ADD-ON [facility] [address] [address], [facility] [address] [address] * (ABNORMAL) CBC without Differential (03/30/2024 4:12 AM CDT) Hemoglobin 11.3(L) 13.2 - 16.6 g/dL 03/30/2024 [...] CDT Eloy Banks M.D. LAB BLOOD ADD-ON [facility] [place] [address] [place] [address], [facility] DTL [facility] [address] [place] [address] * (ABNORMAL) Basic Metabolic Panel (03/30/2024 4:12 AM CDT) Potassium, S 4.4 3.6 - [...] CDT Eloy Banks M.D. LAB BLOOD ADD-ON [facility] [place] [address] [place] [address] * Patient Status (03/29/2024 1:28 PM CDT) Temperature 35.6 37.0 deg C 03/29/2024 1:28 PM CDT STMA FIO2 0.38 0.21=AIR 03/29/2024 1:28 PM CDT STMA Blood 03/29/2024 1:28 PM CDT 03/29/2024 1:28 PM CDT Sp Jonas M.D. LAB BLOOD NON ADD-O N Performing Organization Address City/[facility]/ZIP Co de Phone Number [facility] [place] [address] [place] [address] * (ABNORMAL) Lactate, B - Intra-op (03/29/2024 1:28 PM CDT) Lactate, B 2.4(H) 0.5 - 2.2 mmol/L 03/29/2024 1:30 PM CDT STMA Blood (Blood, Venous) 03/29/2024 1:28 PM CDT 03/29/2024 1:28 PM CDT Soniya Conroy M.D. LAB BLOOD NON ADD-ON [facility] [place] 200 [place] [address] * Glucose, Whole Blood (03/29/2024 1:28 PM CDT) Glucose 127 70 - 140 mg/dL 03/29/2024 1:30 PM CDT STMA Blood (Blood, Arterial Line) 03/29/2024 1:28 PM CDT 03/29/2024 1:28 PM CDT Soniya Conroy M.D. LAB BLOOD ADD-ON [facility] [place] [address] [place] [address], [facility] 200 [place] [address] * Potassium, Blood (03/29/2024 1:28 PM CDT) Potassium, B 4.2 3.6 - 5.2 mmol/L 03/29/2024 1:30 PM CDT STMA Blood (Blood, Arterial Line) 03/29/2024 1:28 PM CDT 03/29/2024 1:28 PM CDT Soniya Conroy M.D. LAB BLOOD NON ADD-ON [facility] [place] [address] [place] [address], [facility] 200 [place] [address] * Sodium, B (03/29/2024 1:28 PM CDT) Sodium, B 138 135 - 145 mmol/L 03/29/2024 1:30 PM CDT STMA Blood (Blood, Arterial Line) 03/29/2024 1:28 PM CDT 03/29/2024 1:28 PM CDT Soniya Conroy M.D. LAB BLOOD NON ADD-ON [facility] [place] [address] [place] [address], [facility] 200 [place] [address] * Calcium, Ionized (03/29/2024 1:28 PM CDT) Calcium, Ionized, B 4.69 4.65 - 5.30 mg/dL 03/29/2024 1:30 PM CDT STMA Blood (Blood, Arterial Line) 03/29/2024 1:28 PM CDT 03/29/2024 1:28 PM CDT Soniya Conroy M.D. LAB BLOOD NON ADD-ON [facility] [place] [address] [place] [address], [facility] [address] [place] [address] * (ABNORMAL) Blood Gas with Coox, Arterial (03/29/2024 1:28 PM CDT) Pathologist [facility] pO2 171(H) 83 - 108 mm Hg [...] Soniya Conroy M.D. LAB BLOOD NON ADD-ON [facility] [place] [address] [place] [address] * Patient Status (03/29/2024 11:28 AM CDT) Temperature 35.4 37.0 deg C 03/29/2024 11:28 AM CDT STMA FIO2 0.43 0.21=AIR 03/29/2024 11:28 AM CDT STMA Blood 03/29/2024 11:2 8 AM CDT 03/29/2024 11:28 AM CDT Jacques Cuevas M.D. LAB BLOOD NON ADD-ON Performing Organization Address City/[facility]/ZIP Co de Phone Number [facility] [place] [address] [place] [address] * Lactate, B - Intra-op (03/29/2024 11:28 AM CDT) Lactate, B 1.7 0.5 - 2.2 mmol/L 03/29/2024 11:30 AM CDT STMA Blood (Blood, Venous) 03/29/2024 11:28 AM CDT 03/29/2024 11:28 AM CDT Soniya Conroy M.D. LAB BLOOD NON ADD-ON [facility] [place] [address] [place] [address] * Glucose, Whole Blood (03/29/2024 11:28 AM CDT) Glucose 108 70 - 140 mg/dL 03/29/2024 11:30 AM CDT STMA Blood (Blood, Arterial Line) 03/29/2024 11:28 AM CDT 03/29/2024 11:28 AM CDT Soniya Conroy M.D. LAB BLOOD ADD-ON [facility] [place] [address] [place] [address], [facility] 200 [place] [address] * Potassium, Blood (03/29/2024 11:28 AM CDT) Potassium, B 4.4 3.6 - 5.2 mmol/L 03/29/2024 11:30 AM CDT STMA Blood (Blood, Arterial Line) 03/29/2024 11:28 AM CDT 03/29/2024 11:28 AM CDT Soniya Conroy M.D. LAB BLOOD NON ADD-ON [facility] [place] [address] [place] [address], [facility] 200 [place] [address] * Sodium, B (03/29/2024 11:28 AM CDT) Sodium, B 138 135 - 145 mmol/L 03/29/2024 11:30 AM CDT [facility] Blood (Blood, Arterial Line) 03/29/2024 11:28 AM CDT 03/29/2024 11:28 AM CDT Soniya Conroy M.D. LAB BLOOD NON ADD-ON [facility] [place] [address] [place] [address], [facility] 200 [place] [address] * (ABNORMAL) Calcium, Ionized (03/29/2024 11:28 AM CDT) Calcium, Ionized, B 4.39(L) 4.65 - 5.30 mg/dL 03/29/2024 11:30 AM CDT STMA Blood (Blood, Arterial Line) 03/29/2024 11:28 AM CDT 03/29/2024 11:28 AM CDT Soniya Conroy M.D. LAB BLOOD NON ADD-ON [facility] [place] [address] [place] [address], [facility] [address] [place] [address] * (ABNORMAL) Blood Gas with Coox, Arterial [...] Soniya Conroy M.D. LAB BLOOD NON ADD-ON [facility] [address] [place] [address], [place] [facility] [address] [place] [address] * Surgical Pathology, Frozen Lab (03/29/2024 10:18 [...] 03/30/2024 9:42 AM 03/31/2024 5:12 PM CDT [facility] Gross Description A. ??Received fresh labeled portion [...] is procured for IRB No. [id number]. ??Photographed. ??Machine Brusher tissue submitted for frozen and permanent sections. ??Grossed by Cadence Hoang M.S., NOEL([facility]). C. ??Received fresh labeled colon anastomotic rings are two (2) annular portions of bowel mucosa, each 1.7 cm in diameter, ranging from 0.9 to 1 cm in length. ??All submitted for permanent sections. ??Grossed by Brianna Martinez M.S., PA([facility]). D. ??Received fresh labeled gallbladder is a 9.8 x 3.6 x 1.6 cm gallbladder with a 0.3 cm maximum wall thickness, and patent cystic duct. ??A cystic duct lymph node is not identified. ??No stones are present within the lumen. ??No masses are identified. ??Machine Brusher tissue submitted for permanent sections. ??Grossed by Biranna Martinez M.S., PA([facility]). E. ??Received fresh labeled portion of caudate liver is an 8.5 gram, 5.4 x 2.4 x 1.6 cm liver wedge specimen. ??A single 1.1 x 0.8 x 0.7 cm yellow mass is present, 0.3 cm from the inked surgical margin. ??Margin is submitted perpendicularly. ??Machine Brusher tissue submitted for permanent sections. ??Grossed by Jaja Alejandre, P.A. ([facility]). F. ??Received fresh labeled liver segment NELLY is a 4.1 x 3.4 x 1.6 cm liver wedge specimen. ??A single 1.5 x 1 x 0.9 cm yellow mass is present, 0.5 cm from the inked surgical margin. ??Margin is submitted perpendicularly. Machine Brusher tissue submitted for frozen and permanent sections. ??Grossed by Jaja Alejandre, P.A. ([facility]). G. ??Received fresh labeled liver segment VII is a 14.3 gram, 5.1 x 3.4 x 1.6 cm liver wedge specimen. ??A single 1 x 1 x 0.8 cm yellow mass is present, 0.4 cm from the inked surgical margin. ??Margin is submitted perpendicularly. Machine Brusher tissue submitted for permanent sections. Grossed by Jaja Alejandre, P.A. ([facility]). H. ??Received fresh labeled hepatic artery lymph nodes is a 1.6 x 0.8 x 0.8 cm lymph node. ??Lymph nodes submitted for permanent sections. ??Grossed by Jaja Alejandre, P.A. ([facility]). I. ??Received fresh labeled portocaval lymph node is a 1.8 x 1 x 0.8 cm lymph node. ??Lymph nodes submitted for frozen and permanent sections. ??Grossed by Jaja Alejandre, P.A. ([facility]). J. ??Received fresh labeled segment 7 liver wedge No. 2 is a 0.40 gram, 1.8 x 1.2 x 0.3 cm liver wedge specimen. ??A single 0.2 x 0.2 x 0.2 cm holden-white mass is present, 0.1 cm from the inked surgical margin. ??Margin is submitted perpendicularly. ??Machine Brusher tissue submitted for frozen and permanent sections. [...] will be performed on block B12 at [place], [place] Signed by Timothy Cordoba M.D. 04/19/2024 [...] in 1 hotspot field: ??Not applicable ?Tumor [place] Score: ??Not applicable Treatment Effect: Present, with [...] 03/29/2024 3: 07 PM CDT Chris Viera D.O., M.B.A. 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) Post Operative Nausea/Vomiting Obesity Body Mass Index 30-39.9 Adult Malignant Neoplasm Of Rectum (HCC) 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 Given 04/03/2024 7:32 AM CDT 650 mg Given 04/03/2024 1:19 AM CDT 650 mg Given 04/02/2024 7:03 PM CDT 650 mg BUPivacaine liposome (PF) 20 mL, BUPivacaine 30 mL 50 mL injection As needed, Starting on Thu03/29/24 at 0905, Intra-Op Given 03/29/2024 9:05 AM CDT 50 mL Abdominal Tissue buPROPion XL 24 hr tablet 300 mg (WELLBUTRIN XL) 300 mg, oral, Every morning, First dose on Thu03/30/24 at 0900, Swallow whole. Do NOT crush, chew, or split tablet. Given 04/03/2024 8:12 AM CDT 300 mg Given 04/02/2024 8:29 AM CDT 300 mg Given 04/01/2024 8:15 AM CDT 300 mg cellulose, oxidized 2 x 4 pad (SURGICEL) As needed, Starting on Thu03/29/24 at 1310, Intra-Op Given 03/29/2024 1:10 PM CDT 1 each Other enoxaparin injection 40 mg (LOVENOX) 40 mg, subcutaneous, Daily at bedtime, First dose on Thu03/30/24 at 2100, Begin education Given 04/02/2024 9:08 PM CDT 40 mg Right Upper Arm (Anna k) Given 04/01/2024 9:23 PM CDT 40 mg Ri ght Upper Arm (Back) Given 03/31/2024 8:33 PM CDT 40 mg Le ft Upper Arm (Back) gentamicin-polymixin B 20 mcg/mL-500 units/mL irrigation (DABS_MODIFIED) As needed, Starting on Thu03/29/24 at 1450, Intra-Op Given 03/29/2024 2:50 PM CDT 1,000 mL Other heparin (porcine) 1,000 unit/mL injection As needed, Starting on Thu03/29/24 at 1442, Intra-Op Given 03/29/2024 2:42 PM CDT 30,000 Units Other heparin 10,000 units/100 mL (100 units/mL) surgical free-flap irrigation vial 100 mL, irrigation, Once in surgery, OR use only, Starting on Thu03/29/24 at 0838, For 1 dose, Intra-Op Given 03/29/2024 2:35 PM CDT 20 mL Other HYDROmorphone (PF) injection 0.2 mg (DILAUDID) 0.2 [...] Given 04/02/2024 4:44 PM CDT 400 mg lamoTRIgine ER 24 hr tablet 200 mg [...] Given 04/02/2024 12:26 PM CDT 1,000 mg methylene blue 0.5 % (5 mg/mL) injection As needed, Starting on Thu03/29/24 at 1456, Intra-Op Given 03/29/2024 2:56 PM CDT 5 mL Oth er nalbuphine injection 2.5 mg (NUBAIN) 2.5 mg, intravenous, Every 4 hours PRN, itching, Starting on Thu03/29/24 at 1740, For 4 doses, PACU & Post-Op Given 03/30/2024 3:58 PM CDT 2.5 mg Given 03/29/2024 10:23 PM CDT 2.5 mg ondansetron (PF) injection 4 mg (ZOFRAN) 4 mg, intravenous, Every 6 hours PRN, nausea, vomiting, Starting on 04/02/24 at 0828, Reassess for nausea or vomiting after at least 10 minutes. If nausea or vomiting persists administer next ordered antiemetic medications (order for antiemetic medication administration ondansetron then haloperidol then prochlorperazine). oxyCODONE IR tablet 10 mg (ROXICODONE) 10 mg, oral, Every 3 hours PRN, severe pain or score 7-10 of 10, Starting on Rhianna 03/31/24 at 0622 Given 04/03/2024 11:07 AM CDT 10 mg Given 04/03/2024 1:19 AM CDT 10 mg Given 04/02/2024 3:48 AM CDT 10 mg oxyCODONE IR tablet 5 mg (ROXICODONE) 5 mg, oral, Every 3 hours PRN, moderate pain or score 4-6 of 10, Starting on Rhianna 03/31/24 at 0622 Given 04/03/2024 5:33 AM CDT 5 mg Given 04/02/2024 10:02 PM CDT 5 mg Given 04/02/2024 7:03 PM CDT 5 mg papaverine injection As needed, Starting on Thu03/29/24 at 1443, Intra-Op Given 03/29/2024 2:43 PM CDT 4 mL Other polysaccharide spheres particles (ACE) As needed, Starting on Thu03/29/24 at 1143, Intra-Op Given 03/29/2024 11:43 AM CDT 1 Application Other prochlorperazine injection 5 mg (COMPAZINE) 5 mg, [...] Given 04/02/2024 1:40 PM CDT 5 mg sodium chloride 0.9 % injection 10-20 mL 10-20 mL, intravenous, During hospitalization, line care, Prior to discharge, Starting on Thu04/03/24 at 0927, For 1 dose, Implanted Vascular Access Device (IVAD) Venous Non-Valved: Flush 10 mL per port/lumen followed by heparin flush prior to discharge. tamsulosin 24 hr capsule 0.4 mg (FLOMAX) 0.4 mg, oral, Daily, First dose on Rhianna 03/31/24 at 0900, Swallow whole. Do NOT crush, [...] hours. 0038 (Given - Provider: Nkechi Love RBillie.)0815 (Given - Provider: Andreea Darnell RBillie.)1425 (Given - Provider: Andreea Darnell R.N.)2116 (Given - Provider: Lucas Hogan R.N.) 0218 (Given - Provider: Lucas Hogan R.Curtis.)0829 (Not Given - Provider: Andreea Darnell R.N. - Reason: Patient/family refused)1342 (Given - Provider: Geraldo Pena R.N.)1903 (Given - Provider: Geraldo Pena R.N.) 0119 (Given - Provider: Rajan Nicole RSolitarioN.)0732 (Given - Provider: Chetna Ward R.N.)1400 (Canceled Entry - Provider: Andreea Darnell R.N.) [...] over 12 Hours, Daily, First dose on 6/16/24 at 0900, Remove after 12 hours. 1014 [...] discharge. 0954 (Given - Provider: Matt Cardona RSolitarioNSolitario) HYDROmorphone (PF) injection 0.2 mg (DILAUDID) 0.2 mg, intravenous, Every 2 hour PRN, severe pain or score 7-10 of 10, breakthrough pain, Starting on Thu03/29/24 at 1946, For breakthrough pain unrelieved 30 minutes after PRN oral pain medication is used; or if unable to take oral pain medication. 0304 (Given - Provider: Lucas Hogan RSolitarioNSolitario) ibuprofen tablet 400 mg (MOTRIN) 400 mg, oral, Every 6 hours PRN, moderate pain or score 4-6 of 10, Starting on Thu04/02/24 at 0604, Take with food or milk if GI disturbances occur with use. 0829 (Given - Provider: Andreea Darnell R.N.)1644 (Given - Provider: Meg Rusesll R.N.) 0533 (Given - Provider: aRjan Nicole R.N.)1242 (Given - Provider: Andreea Darnell R.N.) magnesium oxide tablet 400 mg (MAG-OX) 400 mg, oral, Daily PRN, constipation, Starting on Thu04/02/24 at 0828, For 3 days methocarbamoL tablet 1,000 mg (ROBAXIN) 1,000 mg, oral, 3 times daily PRN, muscle spasms, Starting on Thu03/30/24 at 1756 0815 (Given - Provider: Andreea Darnell R.N.)1425 (Given - Provider: Andreea Darnell R.N.) 1226 (Given - Provider: Merna Bowen RSolitarioNSolitario) 0241 (Given - Provider: Alayna Longoria R.N.)1242 (Given - Provider: Andreea Darnell R.N.) nalbuphine injection 2.5 mg (NUBAIN) 2.5 mg, intravenous, Every 4 hours PRN, itching, Starting on Thu03/29/24 at 1740, For 4 doses, PACU & Post-Op ondansetron (PF) injection 4 mg (ZOFRAN) 4 mg, intravenous, Every 6 hours PRN, nausea, vomiting, Starting on 04/02/24 at 0828, Reassess for nausea or [...] 0622 0129 (Given - Provider: Nkechi Love R.N.)0459 (Given - Provider: Nkechi Love R.N.)0815 (See Alternative - Provider: nAdreea Darnell R.N.)1206 (See Alternative - Provider: Andreea Darnell R.N.)1745 (See Alternative - Provider: Andreea Darnell R.N.)2119 (Given - Provider: Lucas Hogan R.N.)2125 (See Alternative - Provider: Lucas Hogan R.N.)2126 (Given - Provider: Lucas Hogan R.N.) 0025 (See Alternative - Provider: Lucas Hogan R.N.)0348 (Given - Provider: Lucas Hogan R.N.)0726 (See Alternative - Provider: Chetna Ward R.N.)1114 (See Alternative - Provider: Merna Bowen RSolitarioNSolitario)1514 (See Alternative - Provider: Geraldo Pena RAura)1903 (See Alternative - Provider: Geraldo Pena R.N.)2202 (See Alternative - Provider: Geraldo Pena R.N.) 0119 (Given - Provider: Rajan Nicole R.N.)0533 (See Alternative - Provider: Rajan Nicole R.N.)1107 [...] Darnell R.N.)1745 (Given - Provider: Andreea Darnell R.N.)2119 (See Alternative - Provider: Lucas Hogan R.N.)212 (Not Given - Provider: Lucas Hogan R.N. - Reason: Other - Comment: 10MG given)212 (See Alternative - Provider: Lucas Hogan R.N.) [...] Geraldo Pena R.N.) 1242 (Given - Provider: Anrdeea Darnell R.N.) sodium chloride 0.9 % injection 10-20 mL 10-20 mL, intravenous, During hospitalization, line care, Prior to discharge, Starting on [place] 04/03/24 at 0927, For 1 dose, Implanted [...] Total Score: 5 11/25/19 24 9:48 AM [employer] documented as of this encounter Care Teams Director Social Welfare Relationship Specialty Start Date End Date Kayla Rowland APRN, C.N.P. [address] [place] [id number] PCP - General 03/04/24 Roger Sorensen Therapist 02/14/20 documented as of this encounter
--- OUTSIDE RECORDS SUMMARY | 2024-05-25 00:12 | XMS_ITS | Encounter Summary ---
Author Organization [facility] Address [address] [place] [address] Care Team Providers Care Kitchen Runner Name Role Phone Kayla Rowland APRN, C.N.P. Primary Care Provide r Reason for Visit * Radiation Therapy (Routine) - Closed Specialty Diagnoses / Procedures Referred By Contevie t Referred To Contact Diagnoses Malignant Neoplasm Of Rectum (HCC) Procedures Prior Auth Rad Tx [place] RADTN TX DEL >=1 MEV COMPLEX [place] GUIDANCE FOR LOC RAD [place] 3D RAD THER ISODOSE FIELD PLAN Santosh Washington M.D. [address] [place] [phone] [facility] Referral ID Status Reason Start Date Expiration Date Visits Re quested Visits Authorized [id number] Closed 03/23/2024 10/18/2024 5 5 Encounter Details Date Type Department Care Team (Latest Contact Info) Description 03/28/2024 2:11 PM CDT - 03/28/2024 11:59 PM CDT Hospital Encounter Department of Radiation Oncology in [place], [place] [address] [place] [phone] Santosh Washington M.D. [address] [place] [phone] Discharge Disposition: Home or Self Care Social History Tobacco Use Types Packs/Day Years Used Date Smoking Tobacco: Former Cigarettes 1 - 08/18/2015 Smokeless Tobacco: Never Alcohol Use Standard Drinks/Week Comments Not Currently 0 (1 standard drink = 0.6 oz pur e alcohol) A[facility] Utilities Answer Date Recorded In the past 12 months has e [employer], gas, oil, or water [employer] threatened to shut off services in your [...] any clubs o r organizations such as rastafarian groups, unions, fraternal or athletic groups, or [...] Answer Date Recorded PHQ-2 Score 0 04/06/2024 [facility] of Occupat ional Health - Occupational Stress [...] Master's degree (e.g., MA, MS, Aba, MEd, ELECTRO OPTICAL ENGINEER, GAMALIEL) 08/15/2019 Sex and Gender Information Value Date Recorded Sex Assigned at Male 09/09/2023 12:48 PM OSS ARCHITECT Gender Identity Male 08/15/2019 2:16 PM [...] 1-2 times daily as needed. 60 g 06/01/2023 magnesium oxide (MAG-OX) 400 mg (241.3 mg magnesium) tablet Take 1 tablet (400 mg total) by mouth daily as needed (constipation) for up to 1 day. 04/03/2024 04/04/2024 bisacodyL (DULCOLAX) 5 mg EC tablet Take 2 tabs (10 mg total) by mouth at 4pm and 9pm w/8 oz glass of any clear liquid. 25 tablet 03/24/2024 03/29/2024 cholecalciferol (VITAMIN D3) 5,000 Unit capsule Take 5,000 Units by mouth daily. 03/29/2024 clotrimazole (LOTRIMIN) 1 % creamIndications:Gaurav h Groin Apply 1 Application topically 2 (two) times a day. Apply to groin region. 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 Take daily for 3 days on Days 2,3,4 of each cycle. 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 Take daily for 3 days on Days 2,3,4 of each cycle. 30 tablet 3 01/01/2024 03/29/2024 heparin 100 unit/mL syringeIndications:M alignant Neoplasm Of [...] for muscle spasms. 35 tablet 04/03/2024 04/06/2024 metroNIDAZOLE (FLAGYL) 500 mg tablet Take 1 tablet by mouth at 4pm and 9pm with an 8 oz glass of any clear liquid. Take 1 tablet at 5am the day of surgery with a sip of clear liquid 3 tablet 03/24/2024 03/29/2024 neomycin (MYCIFRADIN) 500 mg tablet Take 2 tablets by mouth at 4pm and 9pm with 8 oz glass of any clear liquid. 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 MAY TAKE DOSE EARLY IF NEEDED. 90 tablet 1 02/08/2024 03/29/2024 ondansetron (ZOFRAN) 4 mg tablet Take 1 tablet by mouth at 4pm and 9pm with an 8 oz glass of any clear liquid. 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 30 tablet 3 09/22/2023 03/29/2024 oxyCODONE (ROXICODONE) 5 mg immediate release tabletIndications:Ac james Pain Exception Take 1 tablet (5 mg total) by mouth every 3 (three) hours as needed for moderate pain or score 4-6 of 10 Indication: Acute Pain Exception. 40 tablet 04/03/2024 05/08/2024 polyethylene glycol (MIRALAX) 17 gram/dose oral powder Take 238 g by mouth as directed. 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 30 tablet 3 09/22/2023 03/29/2024 tamsulosin (FLOMAX) 0.4 mg 24 hr capsule Take 1 capsule (0.4 mg total) by mouth daily. 30 capsule 1 04/03/2024 05/20/2024 documented as of this encounter Plan of Treatment Upcoming Encounters Date Type Department Care Team (Late st Contact Info) Description 06/01/2024 9:30 AM CDT Clinical Support Division of Colon and Rectal Surgery in [address] [phone] Armida Bullock, JAD, C.N.P., M.S.N. [address] [place] [phone] 06/07/2024 9:20 AM CDT Lab Department of Infusion Therapy in [place], [place] [address] [place] [phone] Mariluz Soler M.D. [address] [place] [phone] 06/07/2024 11:20 AM CDT Office Visit Department of Oncology in [address] [phone] Mariluz Soler M.D. [address] [place] [phone] 06/07/2024 1:00 PM CDT Infusion Department of Oncology in [place], [place] [address] [place] [phone] Mariluz Soler M.D. [address] [place] [phone] 06/17/2024 8:30 AM CDT Appointment Department of Laboratory Medicine and Pathology, [facility] in [place], [place] [address] [place] [phone] Anny Mcneill M.D. [address] [place] [phone] 06/17/2024 9:00 AM CDT Lab Department of Infusion Therapy in [place], [place] [address] [place] [phone] Anny Mcneill M.D. [address] [place] [phone] 06/17/2024 10:45 AM CDT Procedure visit Department of Urology in [place], [place] [address] [place] [phone] Anny Mcneill M.D. [address] [place] [phone] 06/17/2024 1:45 PM CDT Comprehensive Visit Department of Urology in [place], [place] [address] [place] [phone] Ayesha Romero, P.A.-CSolitario [address] [place] [phone] 06/17/2024 4:15 PM CDT Comprehensive Visit Department of Urology in [place], [place] [address] [place] [phone] Scotty Tom APRN, C.N.P. [address] [place] [phone] documented as of this encounter Goals Goal [...] Depression General Improving( 11:43 AM CDT) Yes Krishan, Michael McgheeN. Note: P. 46-48 Create a relapse prevention plan. Spend time with my dog again. General On track( 11:43 AM CDT) Yes Nadia Nickerson R.N. Have some time to himself regularly. General On track( 11:47 AM CDT) Yes [place], Nadia Boone R.N. Note: 01/24/20 - More structure to his day. Thankful for this time to maintenance worker. Recognizing he needs more personal time. Meet with therapist regularly General On track( 11:43 AM CDT) Yes Krishan, Nadia Boone R.N. Note: Dr. Pavan Sorensen, with [facility] in [place], [place]. Take your medication every day Lifestyle [...] Total Score: 5 11/25/19 24 9:48 AM OSS ARCHITECT documented as of this encounter Care Teams Kitchen Runner Relationship Specialty Start Date End Date Kayla Rowland APRN, C.N.P. [address] [place] [phone] PCP - General 03/04/24 Roger Sorensen Therapist 02/14/20 documented as of this encounter
--- OUTSIDE RECORDS SUMMARY | 2024-05-25 00:12 | XMS_ITS | Encounter Summary ---
Author Organization [facility] Address [address] [place] [address] Care Team Providers Care Greeter Name Role Phone Kayla Rowland APRN, C.N.P. Primary Care Provide r Reason for Visit * Radiation Therapy (Routine) - Closed Specialty Diagnoses / Procedures Referred By Contevie t Referred To Contact Diagnoses Malignant Neoplasm Of Rectum (HCC) Procedures Prior Auth Rad Tx [place] RADTN TX DEL >=1 MEV COMPLEX [place] GUIDANCE FOR LOC RAD TX [place] 3D RAD THER ISODOSE FIELD PLAN Santosh Washington M.D. [address] [place] [phone] [facility] Referral ID Status Reason Start Date Expiration Date Visits Re quested Visits Authorized [id number] Closed 03/23/2024 10/18/2024 5 5 Encounter Details Date Type Department Care Team (Latest Contact Info) Description 03/26/2024 8:00 AM CDT - 03/26/2024 11:59 PM T Hospital Encounter Department of Radiation Oncology in [place], [place] [address] [place] [phone] Santosh Washington M.D. [address] [place] [phone] Discharge Disposition: Home or Self Care Social History Tobacco Use Types Packs/Day Years Used Date Smoking Tobacco: Former Cigarettes 1 - 08/18/2015 Smokeless Tobacco: Never Alcohol Use Standard Drinks/Week Comments Not Currently 0 (1 standard drink = 0.6 oz pur e alcohol) AHC Utilities Answer Date Recorded In the past 12 months has e [employer], gas, oil, or water [employer] threatened to shut off services in your [...] often do you attend chur ch or orthodox services? Never 12/06/2021 Do you belong to any clubs o r organizations such as hinduism groups, unions, fraternal or athletic groups, or [...] Date Recorded PHQ-2 Score 0 04/06/2024 [facility] of Occupat ional Health - Occupational Stress [...] Master's degree (e.g., MA, MS, Aba, MEd, PHOTOGRAPHIC SPOTTER, GAMALIEL) 08/15/2019 Sex and Gender Information Value Date Recorded Sex Assigned at Male 09/09/2023 12:48 PM EVENT HOST Gender Identity Male 08/15/2019 2:16 PM CDT [...] Division of Colon and Rectal Surgery in [address] [phone] Armida Bullock, JAD, C.N.P., M.S.N. [address] [place] [phone] 06/07/2024 9:20 AM CDT Lab Department of Infusion Therapy in [place], [place] [address] [place] [phone] Mariluz Soler M.D. [address] [place] [phone] 06/07/2024 11:20 AM CDT Office Visit Department of Oncology in [address] [phone] Mariluz Soler M.D. [address] [place] [phone] 06/07/2024 1:00 PM CDT Infusion Department of Oncology in [place], [place] [address] [place] [phone] Mariluz Soler M.D. [address] [place] [phone] 06/17/2024 8:30 AM CDT Appointment Department of Laboratory Medicine and Pathology, [facility] in [place], [place] [address] [place] [phone] Anny Mcneill M.D. [address] [place] [phone] 06/17/2024 9:00 AM CDT Lab Department of Infusion Therapy in [place], [place] [address] [place] [phone] Anny Mcneill M.D. [address] [place] [phone] 06/17/2024 10:45 AM CDT Procedure visit Department of Urology in [place], [place] [address] [place] [phone] Anny Mcneill M.D. [address] [place] [phone] 06/17/2024 1:45 PM CDT Comprehensive Visit Department of Urology in [place], [place] [address] [place] [phone] Ayesha Romero, P.A.-CSolitario [address] [place] [phone] 06/17/2024 4:15 PM CDT Comprehensive Visit Department of Urology in [place], [place] [address] [place] [phone] Scotty Tom APRN, C.N.P. [address] [place] [phone] documented as of this encounter Goals Goal [...] General On track( 11:47 AM CDT) Yes [place], Nadia Boone R.N. Note: 01/24/20 - More structure to his day. Thankful for this time to general house worker. Recognizing he needs more personal time. Meet with therapist regularly General On track( 11:43 AM CDT) Yes Krishan, Nadia Boone R.N. Note: Dr. Pavan Sorensen, with [facility] in [place], [place]. Take your medication every day Lifestyle [...] Total Score: 5 11/25/19 24 9:48 AM EVENT HOST documented as of this encounter Care Teams Greeter Relationship Specialty Start Date End Date Kayla Rowland APRN, C.N.P. [address] [place] [phone] PCP - General 03/04/24 Roger Sorensen Therapist 02/14/20 documented as of this encounter
--- OUTSIDE RECORDS SUMMARY | 2024-05-25 00:13 | XMS_ITS | Encounter Summary ---
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 [address] [place] [phone] [facility] Referral ID Status Reason Start Date Expiration Date Visits Re quested Visits Authorized [id number] Closed 03/25/2024 03/25/2025 1 1 Encounter Details Date Type Department Care Team (Late st Contact Info) Description 03/25/2024 Orders Only Department of Radiation Oncology in [place], [place] [address] [place] [phone] Bren Vega P.A.-C., M.S. 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 No 12/06/2021 Within the last year, have y ou been humiliated or emotionally abused in other ways by your partner or ex-partner? No Within the last year, have y ou been kicked, hit, slapped, or otherwise physically hurt by your partner or ex-partner? No 12/06/2021 Within the last year, have y ou been raped or forced to have any kind of sexual activity by your partner or ex-partner? No 12/06/2021 Social Connection and Isolat ion Panel [NHANES] [...] Answer Date Recorded PHQ-2 Score 1 11/25/2023 [facility] of Occupat ional Health - [...] the money to buy more. Never true 12/06/19 Within the past 12 months, t he food you bought just didn't last and you didn't have money to get more. Never true 12/06/2021 PRAPARE - Transportation Answer Date Re corded In the past 12 months, has l ack of transportation kept you from medical appointments or from getting medications? No 11/19 In the past 12 months, has l ack of transportation kept you from meetings, work, or from getting things needed for daily living? No 12/06/2021 Housing Stability Vital Sign Answer Anoop e Recorded In the last 12 months, was t here a time when you were not able to pay the mortgage or rent on time? No 12/06/2021 In the last 12 months, how many places have you lived? 1 12/06/2021 In the last 12 months, was t here a time when you did not have a steady place to sleep or slept in a longterm (including now)? No 12/06/2021 Depression Answer Date Recor ded PHQ-9 Total [...] Employed and actively working without restrictions 12/06/2021 Education Answer Date Recorded What is the highest level of school you have completed or the highest degree you have received? Master's degree (e.g., MA, MS, Aba, MEd, METAL WINDOW FRAME MAKER, GAMALIEL) 08/15/2019 Sex and Gender Information Value Date Recorded Sex Assigned at Male 09/09/2023 12:48 PM HELPDESK MANAGER Gender Identity Male 08/15/2019 2:16 PM CDT Sexual Orientation Straight 08/15/2019 2: 16 PM CDT documented as of this encounter Plan of Treatment Upcoming Encounters Date Type Department Care Team (Late st Contact Info) Description 06/01/2024 9:30 AM CDT Clinical Support Division of Colon and Rectal Surgery in [place], [place] [address] [place] [phone] Armida Bullock APRN, C.N.P., M.S.N. [address] [place] [phone] 06/07/2024 9:20 AM CDT Lab Department of Infusion Therapy in [address] [phone] Mariluz Soler M.D. [address] [place] [phone] 06/07/2024 11:20 AM CDT Office Visit Department of Oncology in [address] [phone] Mariluz Soler M.D. [address] [place] [phone] 06/07/2024 1:00 PM CDT Infusion Department of Oncology in [address] [phone] Mariluz Soler M.D. [address] [place] [phone] 06/17/2024 8:30 AM CDT Appointment Department of Laboratory Medicine and Pathology, [facility], in [place], [place] [address] [place] [phone] Anny Mcneill M.D. [address] [place] [phone] 06/17/2024 9:00 AM CDT Lab Department of Infusion Therapy in [place], [place] [address] [place] [phone] Anny Mcneill M.D. [address] [place] [phone] 06/17/2024 10:45 AM CDT Procedure visit Department of Urology in [place], [place] [address] [place] [phone] Anny Mcneill M.D. [address] [place] [phone] 06/17/2024 1:45 PM CDT Comprehensive Visit Department of Urology in [place], [place] [address] [place] [phone] Ayesha Romero, P.A.-C. [address] [place] [phone] 06/17/2024 4:15 PM CDT Comprehensive Visit Department of Urology in [place], [place] [address] [place] [phone] Scotty Tom, GROUP CONTRACT ANALYST, C.N.P. 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 Author Eat a balanced, healthy diet Diet Worsening( 11:49 AM CDT) Yes [place], Nadia Boone R.N. Note: 02/14/20 - Has one regular meal daily (supper), otherwise not as hungry and snacks on fruit in AM, chips in evening. Will readdress his dietary goals and see if this makes a difference in his mood. Read Managing My Depression General Improving( 11:43 AM CDT) Yes [place], Nadia Boone R.N. Note: P. 46-48 Create a relapse prevention plan. Spend time with my dog again. General On track( 11:43 AM CDT) Yes Krishan, Nadia Boone R.N. Have some time to himself regularly. General On track( 11:47 AM CDT) Yes [place], Nadia Boone R.N. Note: 01/24/20 - More structure to his day. Thankful for this time to workers' compensation hearings officer. Recognizing he needs more personal time. Meet with therapist regularly General On track( 11:43 AM CDT) Yes [place], Nadia Boone R.N. Note: Dr. Pavan Sorensen, with [employer] in [place], [place]. Take your medication every day Lifestyle On track( 11:49 AM CDT) No Nadia Nickerson R.N. Note: Increased Wellbutrin to 300 mg daily 02/09/20. PHQ-9 Total Score (max 27) < 5 Symptom Management 3(04/06/2024 7:51 PM CDT) No HelemanoNadia R.N. Note: Enrollment PHQ9=18 on 08/16/19 Patient [...] Total Score: 5 11/25/19 24 9:48 AM HELPDESK MANAGER documented as of this encounter Care Teams Director Of Neighborhood Service Center Relationship Specialty Start Date End Date Kayla Rowland APRN, C.N.P. [address] [place] [phone] PCP - General 03/04/24 Roger Sorensen Therapist 02/14/20 documented as of this encounter
--- OUTSIDE RECORDS SUMMARY | 2024-05-25 00:13 | XMS_ITS | Encounter Summary ---
Author Organization [facility] Address [address] [place] [address] Care Team Providers Care Regulatory Agency Director Name Role Phone Kayla Rowland APRN, C.N.P. Primary Care Provide r Encounter Details Date Type Department Care Team (Late st Contact Info) Description 03/24/2024 Orders Only Division of Colon and Rectal Surgery in [place], [place] [address] [place] [phone] Janell Chino M.A.Curtis., R.N. [address] [place] [phone] Social History Tobacco Use Types Packs/Day Years Used Date Smoking Tobacco: Former Cigarettes 1 - 08/18/2015 Smokeless Tobacco: Never Alcohol Use Standard Drinks/Week Comments Not Currently 0 (1 standard drink = 0.6 oz pur e alcohol) [facility] Utilities Answer Date Recorded In the past 12 months has [facility] [employer], gas, oil, or water [employer] threatened to shut off services in your [...] any clubs o r organizations such as latter-day groups, unions, fraternal or athletic groups, or [...] [facility] Occupational Stress Questionnaire Answer Date [...] Master's degree (e.g., MA, MS, Aba, MEd, HYDRAMATIC SPECIALIST, GAMALIEL) 08/15/2019 Sex and Gender Information Value Date Recorded Sex Assigned at Male 09/09/2023 12:48 PM COAL SCREENER Gender Identity Male 08/15/2019 2:16 PM CDT Sexual Orientation Straight 08/15/2019 2: 16 PM CDT documented as of this encounter Plan of Treatment Upcoming Encounters Date Type Department Care Team (Late st Contact Info) Description 06/01/2024 9:30 AM CDT Clinical Support Division of Colon and Rectal Surgery in [place], [place] [address] [place] [phone] Armida Bullock APRN, C.N.P., M.S.N. [address] [place] [phone] 06/07/2024 9:20 AM CDT Lab Department of Infusion Therapy in [place], [place] [address] [place] [phone] Mariluz Soler M.D. [address] [place] [phone] 06/07/2024 11:20 AM CDT Office Visit Department of Oncology in [place], [place] [address] [place] [phone] Mariluz Soler M.D. [address] [place] [phone] 06/07/2024 1:00 PM CDT Infusion Department of Oncology in [place], [place] [address] [place] [phone] Mariluz Soler M.D. [address] [place] [phone] 06/17/2024 8:30 AM CDT Appointment Department of Laboratory Medicine and Pathology, [facility] in [place], [place] [address] [place] [phone] Anny Mcneill M.D. [address] [place] [phone] 06/17/2024 9:00 AM CDT Lab Department of Infusion Therapy in [place], [place] [address] [place] [phone] Anny Mcneill M.D. [address] [place] [phone] 06/17/2024 10:45 AM CDT Procedure visit Department of Urology in [place], [place] [address] [place] [phone] Anny Mcneill M.D. [address] [place] [phone] 06/17/2024 1:45 PM CDT Comprehensive Visit Department of Urology in [place], [place] [address] [place] [phone] Ayesha Romero P.A.-C. [address] [place] [phone] 06/17/2024 4:15 PM CDT Comprehensive Visit Department of Urology in [place], [place] [address] [place] [phone] Scotty Tom APRN, UrielNSolitarioP. [address] [place] [phone] documented as of this encounter Goals Goal Patient Goal Type Associated Problems Recent Progress Patient-Stated? Author Eat a balanced, healthy diet Diet Worsening( 11:49 AM CDT) Yes [place], Nadia Boone R.N. Note: 02/14/20 - Has one regular meal daily (supper), otherwise not as hungry and snacks on fruit in AM, chips in evening. Will readdress his dietary goals and see if this makes a difference in his mood. Read Managing My Depression General Improving( 11:43 AM CDT) Yes [place], Nadia Boone R.N. Note: P. 46-48 Create a relapse prevention plan. Spend time with my dog again. General On track( 11:43 AM CDT) Yes [place], Nadia Boone R.N. Have some time to himself regularly. General On track( 11:47 AM CDT) Yes [place], Nadia Boone R.N. Note: 01/24/20 - More structure to his day. Thankful for this time to concession worker. Recognizing he needs more personal time. Meet with therapist regularly General On track( 11:43 AM CDT) Yes [place], Tammy Mcghee.N. Note: Dr. Pavan Sorensen, with [employer] in [place], [place]. Take your medication every day Lifestyle [...] Total Score: 5 11/25/19 24 9:48 AM COAL SCREENER documented as of this encounter Care Teams Regulatory Agency Director Relationship Specialty Start Date End Date Kayla Rowland APRN, C.N.P. [address] [place] [phone] PCP - General 03/04/24 Roger Sorensen Therapist 02/14/20 documented as of this encounter
--- OUTSIDE RECORDS SUMMARY | 2024-05-25 00:13 | XMS_ITS | Encounter Summary ---
Author Organization [facility] Address [address] [place] [address] Care Team Providers Care Die Cast Supervisor Name Role Phone Kayla Rowland APRN, C.N.P. Primary Care Provide r Reason for Visit * Radiation Therapy (Routine) - Closed Specialty Diagnoses / Procedures Referred By Contevie t Referred To Contact Diagnoses Malignant Neoplasm Of Rectum (HCC) Procedures Prior Auth Rad Tx [place] RADTN TX DEL >=1 MEV COMPLEX [place] GUIDANCE FOR LOC RAD TX [place] 3D RAD THER ISODOSE FIELD PLAN Santosh Washington M.D. [address] [place] [phone] [facility] Referral ID Status Reason Start Date Expiration Date Visits Re quested Visits Authorized [id number] Closed 03/23/2024 10/18/2024 5 5 Encounter Details Date Type Department Care Team (Latest Contact Info) Description 03/25/2024 12:07 PM CDT - 03/25/2024 1:14 PM CDT Hospital Encounter Department of Radiation Oncology in [place], [place] [address] [place] [phone] Santosh Washington M.D. [address] [place] [phone] Discharge Disposition: Home or Self Care Social History Tobacco Use Types Packs/Day Years Used Date Smoking Tobacco: Former Cigarettes 1 - 08/18/2015 Smokeless Tobacco: Never Alcohol Use Standard Drinks/Week Comments Not Currently 0 (1 standard drink = 0.6 oz pur e alcohol) [facility] Utilities Answer Date Recorded In the past 12 months has e [employer], [employer], gas, oil, or water [employer] threatened to shut off services in your [...] often do you attend chur ch or cheondoism services? Never 12/06/2021 Do you belong to any clubs o r organizations such as orthodoxy groups, unions, fraternal or athletic groups, or [...] Answer Date Recorded PHQ-2 Score 0 04/06/2024 [facility] [place] of Occupat ional Health - Occupational Stress [...] Master's degree (e.g., MA, MS, Aba, MEd, INFUSION PHARMACIST, GAMALIEL) 08/15/2019 Sex and Gender Information Value Date Recorded Sex Assigned at Male 09/09/2023 12:48 PM BARREL FILLER Gender Identity Male 08/15/2019 2:16 PM CDT [...] Division of Colon and Rectal Surgery in [address] [phone] Armida Bullock, JAD, C.N.P., M.S.N. [address] [place] [phone] 06/07/2024 9:20 AM CDT Lab Department of Infusion Therapy in [place], [place] [address] [place] [phone] Mariluz Soler M.D. [address] [place] [phone] 06/07/2024 11:20 AM CDT Office Visit Department of Oncology in [address] [phone] Mariluz Soler M.D. [address] [place] [phone] 06/07/2024 1:00 PM CDT Infusion Department of Oncology in [place], [place] [address] [place] [phone] Mariluz Soler M.D. [address] [place] [phone] 06/17/2024 8:30 AM CDT Appointment Department of Laboratory Medicine and Pathology, [facility] in [place], [place] [address] [place] [phone] Anny Mcneill M.D. [address] [place] [phone] 06/17/2024 9:00 AM CDT Lab Department of Infusion Therapy in [place], [place] [address] [place] [phone] Anny Mcneill M.D. [address] [place] [phone] 06/17/2024 10:45 AM CDT Procedure visit Department of Urology in [place], [place] [address] [place] [phone] Anny Mcneill M.D. [address] [place] [phone] 06/17/2024 1:45 PM CDT Comprehensive Visit Department of Urology in [place], [place] [address] [place] [phone] Ayesha Romero, P.A.-CSolitario [address] [place] [phone] 06/17/2024 4:15 PM CDT Comprehensive Visit Department of Urology in [place], [place] [address] [place] [phone] Scotty Tom APRN, C.N.P. [address] [place] [phone] documented as of this encounter Goals Goal [...] General On track( 11:47 AM CDT) Yes [place], Nadia Boone R.N. Note: 01/24/20 - More structure to his day. Thankful for this time to youth accommodation support worker. Recognizing he needs more personal time. Meet with therapist regularly General On track( 11:43 AM CDT) Yes [place], Nadia Boone R.N. Note: Dr. Pavan Sorensen, with [employer] in [place], [place]. Take your medication every day Lifestyle [...] Total Score: 5 11/25/19 24 9:48 AM BARREL FILLER documented as of this encounter Care Teams Die Cast Supervisor Relationship Specialty Start Date End Date Kayla Rowland APRN, C.N.P. [address] [place] [phone] PCP - General 03/04/24 Roger Sorensen Therapist 02/14/20 documented as of this encounter
--- OUTSIDE RECORDS SUMMARY | 2024-05-25 00:13 | XMS_ITS | Encounter Summary ---
Author Organization [facility] Address [address] [place] [address] Care Team Providers Care Rug Sizer Name Role Phone Kayla Rowland APRN, C.N.P. Primary Care Provide r Reason for Visit * Radiation Therapy (Routine) - Closed Specialty Diagnoses / Procedures Referred By Contevie t Referred To Contact Diagnoses Malignant Neoplasm Of Rectum (HCC) Procedures Prior Auth Rad Tx DC RADTN TX DEL >=1 MEV COMPLEX DC GUIDANCE FOR LOC RAD TX [place] 3D RAD THER ISODOSE FIELD PLAN Santosh Washington M.D. [address] [place] [phone] [facility] Referral ID Status Reason Start Date Expiration Date Visits Re quested Visits Authorized [id number] Closed 03/23/2024 10/18/2024 5 5 Encounter Details Date Type Department Care Team (Latest Contact Info) Description 03/24/2024 4:29 PM CDT - 03/24/2024 11:59 PM CDT Hospital Encounter Department of Radiation Oncology in [place], [place] [address] [place] [phone] Santosh Washington M.D. [address] [place] [phone] Discharge Disposition: Home or Self Care Social History Tobacco Use Types Packs/Day Years Used Date Smoking Tobacco: Former Cigarettes 1 - 08/18/2015 Smokeless Tobacco: Never Alcohol Use Standard Drinks/Week Comments Not Currently 0 (1 standard drink = 0.6 oz pur e alcohol) [facility] Utilities Answer Date Recorded In the past 12 months has e [employer], gas, oil, or water [employer] threatened to shut off services in your [...] often do you attend chur ch or baptist services? Never 12/06/2021 Do you belong to any clubs o r organizations such as quaker groups, unions, fraternal or athletic groups, or [...] Answer Date Recorded PHQ-2 Score 0 04/06/2024 [facility] [place] of Occupat ional Health - Occupational Stress [...] Master's degree (e.g., MA, MS, Aba, MEd, EDUCATION SPEC, GAMALIEL) 08/15/2019 Sex and Gender Information Value Date Recorded Sex Assigned at Male 09/09/2023 12:48 PM BUSINESS INSURANCE AGENT Gender Identity Male 08/15/2019 2:16 PM CDT [...] mouth daily. 03/29/2024 clotrimazole (LOTRIMIN) 1 % creamIndications:Gaurva h Groin Apply 1 Application topically 2 [...] Division of Colon and Rectal Surgery in [address] [phone] Armida Bullock, JAD, C.N.P., M.S.N. [address] [place] [phone] 06/07/2024 9:20 AM CDT Lab Department of Infusion Therapy in [place], [place] [address] [place] [phone] Mariluz Soler M.D. [address] [place] [phone] 06/07/2024 11:20 AM CDT Office Visit Department of Oncology in [address] [phone] Mariluz Soler M.D. [address] [place] [phone] 06/07/2024 1:00 PM CDT Infusion Department of Oncology in [place], [place] [address] [place] [phone] Mariluz Soler M.D. [address] [place] [phone] 06/17/2024 8:30 AM CDT Appointment Department of Laboratory Medicine and Pathology, [facility] in [place], [place] [address] [place] [phone] Anny Mcneill M.D. [address] [place] [phone] 06/17/2024 9:00 AM CDT Lab Department of Infusion Therapy in [place], [place] [address] [place] [phone] Anny Mcneill M.D. [address] [place] [phone] 06/17/2024 10:45 AM CDT Procedure visit Department of Urology in [place], [place] [address] [place] [phone] Anny Mcneill M.D. [address] [place] [phone] 06/17/2024 1:45 PM CDT Comprehensive Visit Department of Urology in [place], [place] [address] [place] [phone] Ayesha Romero, P.A.-CSolitario [address] [place] [phone] 06/17/2024 4:15 PM CDT Comprehensive Visit Department of Urology in [place], [place] [address] [place] [phone] Scotty Tom APRN, C.N.P. [address] [place] [phone] documented as of this encounter Goals Goal [...] General On track( 11:47 AM CDT) Yes [place], Nadia Boone R.N. Note: 01/24/20 - More structure to his day. Thankful for this time to workforce management consultant. Recognizing he needs more personal time. Meet with therapist regularly General On track( 11:43 AM CDT) Yes [place], Nadia Boone R.N. Note: Dr. Pavan Sorensen, with [employer] in [place], [place]. Take your medication every day Lifestyle [...] Total Score: 5 11/25/19 24 9:48 AM BUSINESS INSURANCE AGENT documented as of this encounter Care Teams Rug Sizer Relationship Specialty Start Date End Date Kayla Rowland APRN, C.N.P. [address] [place] [phone] PCP - General 03/04/24 Roger Sorensen Therapist 02/14/20 documented as of this encounter
--- OUTSIDE RECORDS SUMMARY | 2024-05-25 00:13 | XMS_ITS | Encounter Summary ---
Author Organization [facility] Address [address] [place] [address] Care Team Providers Care Agricultural Technical Officer Name Role Phone Kayla Rowland APRN, C.N.P. Primary Care Provide r Reason for Visit * Outpatient (Routine) - Closed Specialty Diagnoses / Procedures Referred By Keya t Referred To Contact Diagnoses Malignant Neoplasm Of Rectum (HCC) Procedures Stomal Therapy Tej Quintanilla M.B., ChSolitarioB., M.P.H. [address] [place] [phone] [facility] Referral ID Status Reason Start Date Expiration Date Visits Re quested Visits Authorized [id number] Closed 03/22/2024 03/22/2025 1 1 Encounter Details Date Type Department Care Team (Latest Contact Info) Description 03/24/2024 3:30 PM CDT Clinical Support Division of Colon and Rectal Surgery in [place], [place] [address] [place] [phone] Tej Quintanilla M.B., Ch.B., M.P.H. [address] [place] [phone] Phyllis Payne R.N., C.W.O.C.N. Malignant Neoplasm Of Rectum (HCC) Social History [...] Answer Date Recorded PHQ-2 Score 1 11/25/2023 [facility] of Occupat ional Health - Occupational [...] place to sleep or slept in a retirement (including now)? No 12/06/2021 Depression Answer Date [...] Master's degree (e.g., MA, MS, Aba, MEd, PARK INTERPRETIVE RANGER, GAMALIEL) 08/15/2019 Sex and Gender Information Value Date Recorded Sex Assigned at Male 09/09/2023 12:48 PM FUSION ANALYST Gender Identity Male 08/15/2019 2:16 PM CDT Sexual Orientation Straight 08/15/2019 2: 16 PM CDT documented as of this encounter Progress Notes * Phyllis Payne R.N., C.YeimiC.N. - 03/24/2024 3:30 PM CDT SUBJECTIVE CHIEF COMPLAINT/REASON FOR VISIT Preoperative teaching and stoma site marking HISTORY OF PRESENT ILLNESS Heriberto Snowden is a 43 y.o. male was referred by Tej Quintanilla M.B., Ch.B., M.P.H. for preoperative teaching for diverting loop ileostomy. ASSESSMENT / PLAN Patient practiced a pouching system change with verbal instruction. Stoma sites marked in all 4 quadrants. Upper sites marked as #1 and lower sites marked as #2. These sites are in the patient's lineof vision, in the rectus muscle, and free of skin creases or scars. Allen verified with another WOCnurse. documented in this encounter Plan of Treatment Upcoming Encounters Date Type Department Care Team (Late st Contact Info) Description 06/01/2024 9:30 AM CDT Clinical Support Division of Colon and Rectal Surgery in [place], [place] [address] [place] [phone] Armida Bullock APRN, C.N.P., M.S.N. [address] [place] [phone] 06/07/2024 9:20 AM CDT Lab Department of Infusion Therapy in [place], [place] [address] [place] [phone] Mariluz Soler M.D. [address] [place] [phone] 06/07/2024 11:20 AM CDT Office Visit Department of Oncology in [place], [place] [address] [place] [phone] Mariluz Soler M.D. [address] [place] [phone] 06/07/2024 1:00 PM CDT Infusion Department of Oncology in [place], [place] [address] [place] [phone] Mariluz Soler M.D. [address] [place] [phone] 06/17/2024 8:30 AM CDT Appointment Department of Laboratory Medicine and Pathology, [facility] in [place], [place] [address] [place] [phone] Anny Mcneill M.D. [address] [place] [phone] 06/17/2024 9:00 AM CDT Lab Department of Infusion Therapy in [place], [place] [address] [place] [phone] Anny Mcneill M.D. [address] [place] [phone] 06/17/2024 10:45 AM CDT Procedure visit Department of Urology in [place], [place] [address] [place] [phone] Anny Mcneill M.D. [address] [place] [phone] 06/17/2024 1:45 PM CDT Comprehensive Visit Department of Urology in [place], [place] [address] [place] [phone] Ayesha Romero P.A.-C. [address] [place] [phone] 06/17/2024 4:15 PM CDT Comprehensive Visit Department of Urology in [place], [place] [address] [place] [phone] Scotty Tom APRN, C.N.P. [address] [place] [phone] documented as of this encounter Goals Goal Patient Goal Type Associated Problems Recent Progress Patient-Stated? Author Eat a balanced, healthy diet Diet Worsening( 11:49 AM CDT) Yes [place], Nadia Boone R.N. Note: 02/14/20 - Has one regular meal daily (supper), otherwise not as hungry and snacks on fruit in AM, chips in evening. Will readdress his dietary goals and see if this makes a difference in his mood. Read Managing My Depression General Improving( 11:43 AM CDT) Yes [place], Tammy Mcghee.Curtis. Note: P. 46-48 Create a relapse prevention plan. Spend time with my dog again. General On track( 11:43 AM CDT) Yes [place] R.N. Have some time to himself regularly. General On track( 11:47 AM CDT) Yes [place], Nadia Boone R.N. Note: 01/24/20 - More structure to his day. Thankful for this time to creamery worker. Recognizing he needs more personal time. Meet with therapist regularly General On track( 11:43 AM CDT) Yes [place], Nadia Boone R.N. Note: Dr. Pavan Sorensen, with [employer] in [place], [place]. Take your medication every day Lifestyle On track( 11:49 AM CDT) No [place], Nadia Boone R.N. Note: Increased Wellbutrin to 300 mg daily 02/09/20. PHQ-9 Total Score (max 27) < 5 Symptom Management 3(04/06/2024 7:51 PM CDT) No [place], Nadia Boone R.N. Note: Enrollment PHQ9=18 on 08/16/19 Patient goals at enrollment: 1. I'd like to have my depression be less intense. 2. I'd like to learn some coping strategies. 3. I'd like to learn how to keep my depression from flaring back again documented as of this encounter Procedures Procedure Name Priority Date/Time Associated Diagnosis Comments CRS STOMAL THERAPY Routine 03/24/2024 3:25 PM CDT Malignant Neoplasm Of Rectum (HCC) documented in this encounter Visit Diagnoses Diagnosis Malignant Neoplasm Of Rectum (HCC) documented in this encounter Additional Health Concerns Assessment Noted Time PHQ-9 Depression Total Score: 5 11/25/19 24 9:48 AM FUSION ANALYST documented as of this encounter Care Teams Agricultural Technical Officer Relationship Specialty Start Date End Date Kayla Rowland APRN, C.N.P. [address] [place] [phone] PCP - General 03/04/24 Roger Sorensen Therapist 02/14/20 documented as of this encounter
--- OUTSIDE RECORDS SUMMARY | 2024-05-25 00:13 | XMS_ITS | Encounter Summary ---
Author Organization [facility] Address [address] [place] [id number] Care Team Providers Care Financial Administration Officer Name Role Phone Kayla Rowland APRN C.N.P. 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 200 [place] [address] [facility] Referral ID Status Reason Start Date Expiration Date Visits Re quested Visits Authorized [id number] Closed 03/25/2024 03/25/2025 1 1 Encounter Details Date Type Department Care Team (Latest Contact Info) Description 03/25/2024 1:15 PM CDT - 03/25/2024 1:31 PM CDT Hospital Encounter Department of Radiation Oncology in [place], [place] [address] [place] [address] Bren Vega P.A.-C., M.S. 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 Never 12/06/2021 Do you belong to any clubs o r organizations such as episcopalian groups, unions, fraternal or athletic groups, or [...] Answer Date Recorded PHQ-2 Score 1 11/25/2023 [facility] - Occupational [...] money to buy more. Never true 12/06/19 22 Within the past 12 months, t he [...] place to sleep or slept in a [facility]p (including now)? No 12/06/2021 Depression Answer Date [...] Master's degree (e.g., MA, MS, Aba, MEd, LABEL DRIER, GAMALIEL) 08/15/2019 Sex and Gender Information Value Date Recorded Sex Assigned at Male 09/09/2023 12:48 PM STEAM FITTER Gender Identity Male 08/15/2019 2:16 PM CDT [...] oxyCODONE (ROXICODONE) 5 mg immediate release tabletIndications:Ac bois forte Pain Exception Take 1 tablet (5 mg [...] as of this encounter Progress Notes * Bren Vega P.A.-C., M.S. - 03/25/2024 1:15 PM CDT Diagnosis: Malignant Neoplasm Of Rectum Radiation Treatment Progress Summary Treatment Course: 1xRectum Plan ID Fractions Dose / Fraction (cGy) Dose Treated (cGy) Dose Planned (cGy) First Treatment Last Treatment Elapsed Days [id number] 500 1500 2500 03/23/2024 03/25/2024 2 Course Summary 03/23/2024 03/25/2024 2 SUBJECTIVE Mr. Heriberto Snowden a 43 y.o. reports that he experienced some left abdominal cramping earlier today during urination. He had some cramping again with urination after his treatment and still notes some mild cramping along the left side of his abdomen. He also reports an episode of diarrhea today. He is otherwise feeling well. OBJECTIVE There were no vitals taken for this visit. PHYSICAL EXAM General: Alert and oriented male in no acute distress. ASSESSMENT / PLAN The patient is tolerating radiotherapy well. He was seen today after treatment due to some abdominal cramping during and after urination. He also had an episode of diarrhea. We discussed that the cramping could be related to his treatment. Discussed he could take Tylenol or ibuprofen as needed if the cramping persists. Encouraged him to reach out if it worsens. Also discussed using Imodium as needed for diarrhea. We will continue with treatment as planned. He knows he can reach out to us with any further questions or concerns. documented in this encounter Plan of Treatment Upcoming Encounters Date Type Department Care Team (Late st Contact Info) Description 06/01/2024 9:30 AM CDT Clinical Support Division of Colon and Rectal Surgery in [place], [place] [address] [place] [phone] Armida Bullock APRN, C.N.P., M.S.N. [address] [place] [phone] 06/07/2024 9:20 AM CDT Lab Department of Infusion Therapy in [place], [place] [address] [place] [phone] Mariluz Soler M.D. [address] [place] [phone] 06/07/2024 11:20 AM CDT Office Visit Department of Oncology in [place], [place] [address] [place] [phone] Mariluz Soler M.D. [address] [place] [phone] 06/07/2024 1:00 PM CDT Infusion Department of Oncology in [place], [place] [address] [place] [phone] Mariluz Soler M.D. [address] [place] [phone] 06/17/2024 8:30 AM CDT Appointment Department of Laboratory Medicine and Pathology, [facility] in [place], [place] [address] [place] [phone] Anny Mcneill M.D. [address] [place] [phone] 06/17/2024 9:00 AM CDT Lab Department of Infusion Therapy in [place], [place] [address] [place] [phone] Anny Mcneill M.D. [address] [place] [phone] 06/17/2024 10:45 AM CDT Procedure visit Department of Urology in [place], [place] [address] [place] [phone] Anny Mcneill M.D. [address] [place] [phone] 06/17/2024 1:45 PM CDT Comprehensive Visit Department of Urology in [place], [place] [address] [place] [phone] Ayesha Romero P.A.-C. [address] [place] [phone] 06/17/2024 4:15 PM CDT Comprehensive Visit Department of Urology in [place], [place] [address] [place] [phone] Scotty Tom, JAD, CSolitarioNSolitarioP. 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 Author Eat a balanced, healthy diet Diet Worsening( 11:49 AM CDT) Yes [place], Michael McgheeN. Note: 02/14/20 - Has one regular meal daily (supper), otherwise not as hungry and snacks on fruit in AM, chips in evening. Will readdress his dietary goals and see if this makes a difference in his mood. Read Managing My Depression General Improving( 11:43 AM CDT) Yes [place], Nadia Boone R.N. Note: P. 46-48 Create a relapse prevention plan. Spend time with my dog again. General On track( 11:43 AM CDT) Yes [place], Nadia Boone R.N. Have some time to himself regularly. General On track( 11:47 AM CDT) Yes [place], Nadia Boone, R.N. Note: 01/24/20 - More structure to his day. Thankful for this time to metalworker. Recognizing he needs more personal time. Meet with therapist regularly General On track( 11:43 AM CDT) Yes [place], Nadia Boone R.N. Note: Dr. Pavan Sorensen, with [facility] in [place], [place]. Take your medication every day Lifestyle On track( 020 11:49 AM CDT) No Krishan, Nadia Boone RSolitarioN. Note: Increased Wellbutrin to 300 mg daily 02/09/20. PHQ-9 Total Score (max 27) < 5 Symptom Management 3(04/06/2024 7:51 PM CDT) No [place], Nadia Boone R.N. Note: Enrollment PHQ9=18 on [...] Total Score: 5 11/25/19 24 9:48 AM STEAM FITTER documented as of this encounter Care Teams Financial Administration Officer Relationship Specialty Start Date End Date Kayla Rowland APRN, C.N.P. [address] [place] [phone] PCP - General 03/04/24 Roger Sorensen Therapist 02/14/20 documented as of this encounter
--- OUTSIDE RECORDS SUMMARY | 2024-05-25 00:14 | XMS_ITS | Encounter Summary ---
Author Organization [facility] Address [address] [place] [phone] Care Team Providers Care Preschool Teacher Aide Name Role Phone Kayla Rowland APRN C.N.P. Primary Care Provide r Reason for Referral * Outpatient (Routine) - Closed Specialty Diagnoses / Procedures Referred By Keya olivares Referred To Contact Radiation Oncology Diagnoses 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) Patsy Bowser APRN, C.N.P., M.S. [address] [place] [phone] [facility] Referral ID Status Reason Start Date Expiration Date Visits Re quested Visits Authorized [id number] Closed 03/22/2024 09/21/2025 1 1 Reason for Visit * Outpatient (Routine) - Closed Specialty Diagnoses / Procedures Referred By Escobarac t Referred To Contact Radiation Oncology Diagnoses 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) Patsy Bowser APRN, C.N.P., M.S. [address] [place] [phone] [facility] Referral ID Status Reason Start Date Expiration Date Visits Re quested Visits Authorized [id number] Closed 03/22/2024 09/21/2025 1 1 Encounter Details Date Type Department Care Team (Latest Contact Info) Description 03/22/2024 11:00 AM CDT - 03/22/2024 2:42 PM CDT Hospital Encounter Department of Radiation Oncology in [place], [place] 200 [place] [phone] Santosh Washington M.D. 200 [place] [phone] Secondary Malignant Neoplasm Liver (HCC) (Primary Dx); 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) Social History Tobacco Use Types Packs/Day Years Used Date Smoking Tobacco: Former Cigarettes 1 - 08/18/2015 Smokeless Tobacco: Never Alcohol Use Standard Drinks/Week Comments Not Currently 0 (1 standard drink = 0.6 oz pur e alcohol) [facility] Utilities Answer Date Recorded In the past 12 months has e [employer], gas, oil, or water [employer] threatened to shut off services in your [...] any clubs o r organizations such as scientology groups, unions, fraternal or athletic groups, or [...] Answer Date Recorded PHQ-2 Score 1 11/25/2023 [facility] - Occupational [...] Master's degree (e.g., MA, MS, Aba, MEd, BRIDGE INSTRUCTOR, GAMALIEL) 08/15/2019 Sex and Gender Information Value Date Recorded Sex Assigned at Male 09/09/2023 12:48 PM COAT JOINER LOCKSTITCH Gender Identity Male 08/15/2019 2:16 PM CDT Sexual Orientation Straight 08/15/2019 2: 16 PM CDT documented as of this encounter Last Filed Vital Signs Vital Sign Reading Time Taken Comments Blood Pressure - - Pulse - - Temperature - - Respiratory Rate - - Oxygen Saturation - - Inhaled Oxygen Concentration - - Weight 106 kg (232 lb 12.9 oz) 03/22/2024 1:04 P M CDT Height - - Body Mass Index 35.08 03/21/2024 2:29 PM CDT documented in this encounter Medications [...] for up to 1 day. 04/03/2024 04/04/2024 cholecalciferol (VITAMIN D3) 5,000 Unit capsule Take [...] for muscle spasms. 35 tablet 04/03/2024 04/06/2024 OLANZapine (ZyPREXA) 5 mg tabletIndications:Ma lignant Neoplasm Of Colon Rectosigmoid Junction (HCC),Secondary Malignant Neoplasm Liver (HCC) TAKE 1 TABLET (5 MG TOTAL) BY MOUTH AT BEDTIME NEEDED (NAUSEA, VOMITING). MAY TAKE DOSE EARLY IF NEEDED. 90 tablet 1 02/08/2024 03/29/2024 ondansetron (ZOFRAN) 8 mg tabletIndications:Ma lignant Neoplasm Of Colon Rectosigmoid Junction (HCC),Secondary Malignant Neoplasm Liver (HCC) Take 1 tablet (8 mg total) by mouth every 8 (eight) hours as needed for nausea or vomiting (unrelieved by prochlorperazine). 30 tablet 3 09/22/2023 03/29/2024 oxyCODONE (ROXICODONE) 5 mg immediate release tabletIndications:Ac ho-chunk Pain Exception Take 1 tablet (5 mg total) by mouth every 3 (three) hours as needed for moderate pain or score 4-6 of 10 Indication: Acute Pain Exception. 40 tablet 04/03/2024 05/08/2024 prochlorperazine (COMPAZINE) 10 mg tabletIndications:Ma lignant Neoplasm [...] 04/03/2024 05/20/2024 documented as of this encounter Consult Notes * Bren Vega P.A.-C., M.S. - 03/22/2024 11:00 AM CDT SUBJECTIVE REQUESTING PROVIDER Patsy Bowser APRN, C.N.P., M.S. REASON FOR CONSULT Mr. Heriberto Snowden is a 43 y.o. 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 Collaborating physician: Dr. Santosh Washington ([phone]) HISTORY OF PRESENT ILLNESS Mr. Heriberto Snowden is a 43 y.o. male from [place], [place] with the following oncologic history: Oncology History Overview Note Diagnosis: Colon adenocarcinoma, descending- rectosigmoid Current stage and therapy: Stage at diagnosis: IV (month/year 09/01/23) CEA at diagnosis: Pending Molecular characteristics: pMMR [id number]: KRAS G12D, TP53 T155I, APC mut, bTMB [...] Colon, sigmoid, mass at 18 cm, biopsy ([id number]; 09/01/2023): Invasive moderately differentiated adenocarcinoma arising in [...] colonic origin. Immunohistochemical stains were performed at [facility] (block A1). KRT7 is negative while KRT20 [...] Irinotecan / Bevacizumab ) Start Date: 09/25/2023 10 cycles 09/25/2023 Genetic Testing and Tumor Genotyping Negative germline genetic testing in 2022; CustomNext: Cancer panel + RNAinsight including genes related to colorectal cancer through [facility]. 11/19/2023 Other After 4 cycles FOLFOXIRI [...] changed from 01/19/2023. CEA: 1.3 03/23/2024 - Radiation Therapy Radiation Therapy Treatment Details (Noted on 03/22/2024) Site: Bilateral Pelvis Technique: 3D SITE ENGINEER Goal: Curative Planned Treatment Start Date: 03/23/2024 04/26/2024 - Chemotherapy RIP Intera IFL ( Irinotecan / Fluorouracil / Leucovorin ) Floxuridine / dexAMETHasone / Heparin Start Date: 04/26/2024 (Planned) INTERVAL HISTORY Mr. Heriberto Snowden has completed 10 cycles of neoadjuvant chemotherapy with FOLFOX every and bevacizumab, last cycle on 02/12/2024. He reports he tolerated this very well overall. 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 Energy and appetite are good. He denies any nausea or vomiting, abdominal or pelvic pain, or bowel or bladder issues. Denies hematochezia. He does report some neuropathy in his fingers and toes after each cycle of chemotherapy which improves with acupuncture. Prior radiation therapy: No Implanted medical devices: None MEDICAL/SURGICAL HISTORY Depression Multinodular goiter Hypertension Rectosigmoid adenocarcinoma with liver metastases, see HPI Psoriasis SOCIAL HISTORY Engaged, he and his fiancee are planning to get in May. Former smoker, quit in July 2015. Uses marijuana. 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 FAMILY HISTORY Maternal grandma- bile duct cancer OBJECTIVE Wt 106 kg BMI 35.08 kg/m?? Pain assessment: 0 - No pain/10; Location: none PHYSICAL EXAM General: alert and oriented in no acute distress. ECOG status: 0 Skin: Warm and dry. Lungs: Breathing comfortably on room air. DIAGNOSTICS Pertinent imaging and diagnostics reviewed. ASSESSMENT / PLAN #1 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) #2 Secondary Malignant Neoplasm Liver (HCC) Mr. Heriberto Snowden presents with his fiancee to discuss the role of radiation therapy for locally advanced rectal cancer with liver metastases. He has completed 10 cycles of chemotherapy of FOLFOXIRI and bevacizumab, with last cycle on 02/12/2024. He reports he tolerated this very well overall. Restaging CT chest abdomen pelvis on 03/21/2024 showed improving hepatic metastases with many of the metastases no longer identifiable, no new or progressive lesions. The rectosigmoid primary lesion is no longer identifiable. Two new indeterminate pulmonary nodules measuring 3 mm or less, multiple additional pulmonary nodules are stable. Repeat colonoscopy on 03/16/2024 showed a partially obstructing circumferential mass in the rectosigmoid colon measuring 5 cm in length, significantly improved compared to pre chemotherapy endoscopy reports. He is scheduled for surgery on 03/29/[address] Viera and Dwight for multiple liver wedge resections, placement of hepatic artery infusion pump, as well as low anterior resection with anastomosis and ileostomy construction. We recommended a short course of preoperative radiation therapy to the primary rectosigmoid tumor and surrounding lymphnode regions to help reduce the risk of local recurrence. We discussed the process and logistics of simulation and daily treatment for 5 days as well as sideeffects of radiation therapy including fatigue, frequency and urgency with bowels and bladder, loose stools/diarrhea, and rare risk of secondary malignancy. We discussed coming to simulation and treatment with a full bladder to help minimize dose and toxicity to the small bowel. He is in agreement with this plan. We will proceed with simulation this afternoon and plan to begin treatment tomorrow.We will also plan to give a treatment on Thursday so that we can complete treatment prior to his upcoming surgery next Thursday. All questions were answered to the best of my ability and to his apparent satisfaction. Please refer to Dr. Washington's note for further details. EDUCATION Ready to learn, no apparent learning barriers were identified; learning preferences include listening. Explained diagnosis and treatment plan; patient expressed understanding of the content. ADMINISTRATIVE BILLING I personally spent 50 minutes in care of the patient today. Time includes both non face to face andface to face patient care. Associated attestation - Santosh Washington M.D. - 03/22/2024 4:19 PM CDT I was asked to evaluate Heriberto Narayanan Sp by Dr. Quintanilla regarding management of stage IV upper rectal cancer. I saw and evaluated the patient and participated in the maloney portions of the service. I reviewed thedocumentation of Bren Vega P.A.-C. and agree with the findings and plan. The patient is a 43-year-old male diagnosed with locally advanced upper rectal cancer on 09/01/2023. He would extensive disease in the mesorectal with disease extending to the circumferential resection margin anteriorly. He also had multiple bilobar liver metastases. He has been treated with FOLFOXIRI and bevacizumab. He has now been scheduled for surgery to place hepatic artery infusion pump on March 29, 2024. He will also undergo resection of the primary tumor at that time. He has had a significant response to chemotherapy. ECO The patient appears well on exam. I discussed the situation with the patient. Given the favorable response and the need for ongoing systemic therapy I would favor short course radiation therapy rather than long course chemoradiation therapy prior to surgical resection. We discussed what would be involved with this. We discussed goals, risks, side effects, alternatives and the team approach. He would like to proceed. We will do his simulation today and begin treatment tomorrow. He will complete treatment on March 28 and undergosurgery on March 29. Discussed and questions answered. Consent Discussed the risks, benefits, alternatives, and the necessity of other members of the healthcare team participating in the procedure. All questions answered and consent given. documented in this encounter Plan of Treatment Upcoming Encounters Date Type Department Care Team (Late st Contact Info) Description 06/01/2024 9:30 AM CDT Clinical Support Division of Colon and Rectal Surgery in [address] [phone] Armida Bullock APRN, C.N.P., M.S.N. [address] [place] [phone] 06/07/2024 9:20 AM CDT Lab Department of Infusion Therapy in [address] [phone] Mariluz Soler M.D. [address] [place] [phone] 06/07/2024 11:20 AM CDT Office Visit Department of Oncology in [address] [phone] Mariluz Soler M.D. [address] [place] [phone] 06/07/2024 1:00 PM CDT Infusion Department of Oncology in [address] [phone] Mariluz Soler M.D. [address] [place] [phone] 06/17/2024 8:30 AM CDT Appointment Department of Laboratory Medicine and Pathology, [facility], in [place], [place] [address] [place] [phone] Anny Mcneill M.D. [address] [place] [phone] 06/17/2024 9:00 AM CDT Lab Department of Infusion Therapy in [place], [place] [address] [place] [phone] Anny Mcneill M.D. [address] [place] [phone] 06/17/2024 10:45 AM CDT Procedure visit Department of Urology in [place], [place] [address] [place] [phone] Anny Mcneill M.D. [address] [place] [phone] 06/17/2024 1:45 PM CDT Comprehensive Visit Department of Urology in [place], [place] [address] [place] [phone] Ayesha Romero, P.A.-CSolitario [address] [place] [phone] 06/17/2024 4:15 PM CDT Comprehensive Visit Department of Urology in [place], [place] [address] [place] [phone] Scotty Tom APRN, C.N.P. [address] [place] [phone] Scheduled Referrals Name Type Priority Associated Diagnoses Orde r Schedule Radiation Oncology - GI consult (clinic) Outpatient Referral Routine 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) Once for 1 Occurrences starting 03/22/2024 until 03/22/2024 documented as of this encounter Goals Goal [...] General Improving( 11:43 AM CDT) Yes Krishan, Tammy Mcghee.N. Note: P. 46-48 Create a relapse prevention plan. Spend time with my dog again. General On track( 11:43 AM CDT) Yes Nadia Nickerson R.N. Have some time to himself regularly. General On track( 11:47 AM CDT) Yes [place], Nadia Boone R.N. Note: 01/24/20 - More structure to his day. Thankful for this time to provider network analyst. Recognizing he needs more personal time. Meet with therapist regularly General On track( 11:43 AM CDT) Yes [place], Nadia Boone, R.N. Note: Dr. Pavan Sorensen, with [facility] in [place], [place]. Take your [...] Total Score: 5 11/25/19 24 9:48 AM COAT JOINER LOCKSTITCH documented as of this encounter Care Teams Preschool Teacher Aide Relationship Specialty Start Date End Date Kayla Rowland APRN, C.N.P. [address] [place] [phone] PCP - General 03/04/24 Roger Sorensen Therapist 02/14/20 documented as of this encounter
--- OUTSIDE RECORDS SUMMARY | 2024-05-25 00:14 | XMS_ITS | Encounter Summary ---
Author Organization [facility] Address [address] [place] [address] Care Team Providers Care Ore Dryer Name Role Phone Kayla Rowland APRN, C.N.P. Primary Care Provide r Encounter Details Date Type Department Care Team (Late st Contact Info) Description 03/22/2024 Documentation Department of Radiation Oncology in [place], [place] [address] [place] [phone] Santosh Washington M.D. [address] [place] [address] Social History Tobacco Use Types Packs/Day Years Used Date Smoking Tobacco: Former Cigarettes 1 - 08/18/2015 Smokeless Tobacco: Never Alcohol Use Standard Drinks/Week Comments Not Currently 0 (1 standard drink = 0.6 oz pur e alcohol) [facility] Utilities Answer Date Recorded In the past 12 months has [facility] [employer], gas, oil, or water [employer] threatened to shut off services in your [...] often do you attend chur ch or mosque services? Never 12/06/2021 Do you belong to [...] Answer Date Recorded PHQ-2 Score 1 11/25/2023 [facility] Questionnaire Answer [...] Master's degree (e.g., MA, MS, Aba, MEd, CLOUD SUBJECT MATTER EXPERT, GAMALIEL) 08/15/2019 Sex and Gender Information Value Date Recorded Sex Assigned at Male 09/09/2023 12:48 PM PROGRAM MANUFACTURING LEADER Gender Identity Male 08/15/2019 2:16 PM CDT Sexual Orientation Straight 08/15/2019 2: 16 PM CDT documented as of this encounter Miscellaneous Notes * Radiation Completion Notes - Sherley Michael, RSolitarioN. - 03/22/2024 11:59 PM CDT Images from the original note were not included. DIAGNOSIS: stage IV upper rectal cancer. Attending Physician: Santosh Washington M.D. Treatment Intent: Curative Concomitant Therapy: None Treatment Dates: 03/23/2024-03/28/2024 Treatment Modality: Photon Treatment Type: 3D Radiation Treatment Summary Treatment Course: 1xRectum Plan ID Fractions Dose / Fraction (cGy) Dose Treated (cGy) Dose Planned (cGy) First Treatment Last Treatment Elapsed Days [id number] 500 2500 2500 03/23/2024 03/28/2024 5 Course Summary 03/23/2024 03/28/2024 5 CLINICAL SUMMARY Mr Snowden received 5 fractions of radiation with a total dose of 2500 cGy for the above diagnosis.The course of treatment was tolerated well. Heriberto Snowden experienced no toxicities duringradiation treatment. RECOMMENDED FOLLOW UP: Primary Medical Oncologist and Colorectal Surgery Signed by: Sherley Michael R.N., 04/04/2024 3:32 PM CDT documented in this encounter Plan of Treatment Upcoming Encounters Date Type Department Care Team (Late st Contact Info) Description 06/01/2024 9:30 AM CDT Clinical Support Division of Colon and Rectal Surgery in [address] [phone] Armida Bullock APRN, C.N.P., M.S.N. [address] [place] [phone] 06/07/2024 9:20 AM CDT Lab Department of Infusion Therapy in [address] [phone] Mariluz Soler M.D. [address] [place] [phone] 06/07/2024 11:20 AM CDT Office Visit Department of Oncology in [address] [phone] Mariluz Soler M.D. [address] [place] [phone] 06/07/2024 1:00 PM CDT Infusion Department of Oncology in [address] [phone] Mariluz Soler M.D. [address] [place] [phone] 06/17/2024 8:30 AM CDT Appointment Department of Laboratory Medicine and Pathology, [facility], in [place], [place] [address] [place] [phone] nAny Mcneill M.D. [address] [place] [phone] 06/17/2024 9:00 AM CDT Lab Department of Infusion Therapy in [place], [place] [address] [place] [phone] Anny Mcneill M.D. [address] [place] [phone] 06/17/2024 10:45 AM CDT Procedure visit Department of Urology in [place], [place] [address] [place] [phone] Anny Mcneill M.D. [address] [place] [phone] 06/17/2024 1:45 PM CDT Comprehensive Visit Department of Urology in [place], [place] [address] [place] [phone] Ayesha Romero, P.A.-C. [address] [place] [phone] 06/17/2024 4:15 PM CDT Comprehensive Visit Department of Urology in [place], [place] [address] [place] [phone] Scotty Tom, MANAGER [employer], C.N.P. [address] [place] [phone] documented as of this encounter Goals Goal Patient Goal Type Associated Problems Recent Progress Patient-Stated? Author Eat a balanced, healthy diet Diet Worsening( 11:49 AM CDT) Yes [place], Nadia Boone R.N. Note: 02/14/20 - Has one regular meal daily (supper), otherwise not as hungry and snacks on fruit in AM, chips in evening. Will readdress his dietary goals and see if this makes a difference in his mood. Read Managing My Depression General Improving( 11:43 AM CDT) Yes [place] R.N. Note: P. 46-48 Create a relapse prevention plan. Spend time with my dog again. General On track( 11:43 AM CDT) Yes Krishan, Nadia Boone R.N. Have some time to himself regularly. General On track( 11:47 AM CDT) Yes [place], Michael McgheeN. Note: 01/24/20 - More structure to his day. Thankful for this time to willow worker. Recognizing he needs more personal time. Meet with therapist regularly General On track( 11:43 AM CDT) Yes [place], Nadia Boone R.N. Note: Dr. Pavan Sorensen, with [facility] in [place], [place]. Take your medication every day Lifestyle On track( 11:49 AM CDT) No Nadia Nickerson R.N. Note: Increased Wellbutrin to 300 mg daily 02/09/20. PHQ-9 Total Score (max 27) < 5 Symptom Management 3(04/06/2024 7:51 PM CDT) No [place], R.N. Note: Enrollment PHQ9=18 on 08/16/19 Patient [...] Total Score: 5 11/25/19 24 9:48 AM PROGRAM MANUFACTURING LEADER documented as of this encounter Care Teams Ore Dryer Relationship Specialty Start Date End Date Kayla Rowland APRN, C.N.P. [address] [place] [phone] PCP - General 03/04/24 Roger Sorensen Therapist 02/14/20 documented as of this encounter
--- OUTSIDE RECORDS SUMMARY | 2024-05-25 00:14 | XMS_ITS | Encounter Summary ---
Author Organization [facility] Address [address] [place] [address] Care Team Providers Care Clinical Radiologist Name Role Phone Kayla Rowland APRN, C.N.P. Primary Care Provide r Reason for Visit * Radiation Therapy (Routine) - Closed Specialty Diagnoses / Procedures Referred By Keya t Referred To Contact Diagnoses Malignant Neoplasm Of Rectum (HCC) Procedures Initial Rad Onc Treatment Planning CT Simulation Santosh Washington M.D. [address] [place] [phone] [facility] Referral ID Status Reason Start Date Expiration Date Visits Re quested Visits Authorized [id number] Closed 03/22/2024 03/22/2025 1 1 Encounter Details Date Type Department Care Team (Latest Contact Info) Description 03/22/2024 2:43 PM CDT - 03/22/2024 3:22 PM CDT Hospital Encounter Department of Radiation Oncology in [place], [place] [address] [place] [phone] Santosh Washington M.D. 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) Social History Tobacco Use Types Packs/Day Years Used Date Smoking Tobacco: Former Cigarettes 1 - 08/18/2015 Smokeless Tobacco: Never Alcohol Use Standard Drinks/Week Comments Not Currently 0 (1 standard drink = 0.6 oz pur e alcohol) [facility] Utilities Answer Date Recorded In the [...] any clubs o r organizations such as jew groups, unions, fraternal or athletic groups, or [...] Answer Date Recorded PHQ-2 Score 1 11/25/2023 [facility] - Occupational Stress [...] Master's degree (e.g., CHANDLER, MS, Aba, MEd, HYDRAULIC PLUMBER, GAMALIEL) 08/15/2019 Sex and Gender Information Value Date Recorded Sex Assigned at Male 09/09/2023 12: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 Apply to groin region. 30 g 06/01/2023 03/29/2024 dexAMETHasone (DECADRON) 4 mg tabletIndications:Ma [...] as of this encounter Progress Notes * Brianna Jang RBillie. - 03/22/2024 3:00 PM CDT RN Central Line Assessment Central Line: Yes Line Type: IVAD Power Injectable: Yes Power Injectable Identifiers Used: Hicks or Outside medical record (Date 09/22/2023) and 3 Bumps on [place] Shape Septum Tip Placement Verified: Yes Tip Placement Location: [facility] Verified Date: March 21, 2024 Blood Return Verified: Yes Deaccessed after CT SIM documented in this encounter Plan of Treatment Upcoming Encounters Date Type Department Care Team (Late st Contact Info) Description 06/01/2024 9:30 AM CDT Clinical Support Division of Colon and Rectal Surgery in [place], [place] [address] [place] [phone] Armida Bullock, JAD, C.N.P., M.S.N. [address] [place] [phone] 06/07/2024 9:20 AM CDT Lab Department of Infusion Therapy in [place], [place] [address] [place] [phone] Mariluz Soler M.D. [address] [place] [phone] 06/07/2024 11:20 AM CDT Office Visit Department of Oncology in [place], [place] [address] [place] [phone] Mariluz Soler M.D. [address] [place] [phone] 06/07/2024 1:00 PM CDT Infusion Department of Oncology in [place], [place] [address] [place] [phone] Mariluz Soler M.D. [address] [place] [phone] 06/17/2024 8:30 AM CDT Appointment Department of Laboratory Medicine and Pathology, [facility] in [place], [place] [address] [place] [phone] Anny Mcneill M.D. [address] [place] [phone] 06/17/2024 9:00 AM CDT Lab Department of Infusion Therapy in [place], [place] [address] [place] [phone] Anny Mcneill M.D. [address] [place] [phone] 06/17/2024 10:45 AM CDT Procedure visit Department of Urology in [place], [place] [address] [place] [phone] Anny Mcneill M.D. [address] [place] [phone] 06/17/2024 1:45 PM CDT Comprehensive Visit Department of Urology in [place], [place] [address] [place] [phone] Ayesha Romero, P.A.-C. [address] [place] [phone] 06/17/2024 4:15 PM CDT Comprehensive Visit Department of Urology in [place], [place] [address] [place] [phone] Scotty Tom APRN, C.N.P. [address] [place] [phone] documented as of this encounter Goals Goal Patient Goal Type Associated Problems Recent Progress Patient-Stated? Author Eat a balanced, healthy diet Diet Worsening( 11:49 AM CDT) Yes [place], Nadia Boone R.N. Note: 02/14/20 - Has one regular meal daily (supper), otherwise not as hungry and snacks on fruit in AM, chips in evening. Will readdress his dietary goals and see if this makes a difference in his mood. Read Managing My Depression General Improving( 11:43 AM CDT) Yes [place], Nadia Boone R.N. Note: P. 46-48 Create a relapse prevention plan. Spend time with my dog again. General On track( 11:43 AM CDT) Yes Nadia Nickerson R.N. Have some time to himself regularly. General On track( 11:47 AM CDT) Yes [place], Michael McgheeN. Note: 01/24/20 - More structure to his day. 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 Recognizing he needs more personal time. Meet with therapist regularly General On track( 11:43 AM CDT) Yes [place], Nadia Boone R.N. Note: Dr. Pavan Sorensen, with [facility] in [place], [place]. Take your medication every day Lifestyle On track( 11:49 AM CDT) No [place], Nadia Boone R.N. Note: Increased Wellbutrin to [...] line care, Prior to discharge, Starting on Thu03/22/24 at 1514, For 1 dose, Implanted Vascular Access Device (IVAD) Venous Non-Valved: flush 5 mL (500 units) per port/lumen following saline flush prior to discharge. 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 [address] [place] [phone] PCP - General 03/04/24 Roger Sorensen Therapist 02/14/20 documented as of this encounter
--- OUTSIDE RECORDS SUMMARY | 2024-05-25 00:14 | XMS_ITS | Encounter Summary ---
Author Organization [facility] Address [address] [place] [address] Care Team Providers Care In Mold Coater Name Role Phone Kayla Rowland APRN, C.N.P. Primary Care Provide r Reason for Visit * Radiation Therapy (Routine) - Closed Specialty Diagnoses / Procedures Referred By Contevie t Referred To Contact Diagnoses Malignant Neoplasm Of Rectum (HCC) Procedures Prior Auth Rad Tx MT RADTN TX DEL >=1 MEV COMPLEX MT GUIDANCE FOR LOC RAD TX MT 3D RAD THER ISODOSE FIELD PLAN Santosh Washington M.D. [address] [place] [phone] [facility] Referral ID Status Reason Start Date Expiration Date Visits Re quested Visits Authorized [id number] Closed 03/23/2024 10/18/2024 5 5 Encounter Details Date Type Department Care Team (Latest Contact Info) Description 03/23/2024 2:23 PM CDT - 03/23/2024 11:59 PM CDT Hospital Encounter Department of Radiation Oncology in [place], [place] [address] [place] [phone] Santosh Washington M.D. [address] [place] [phone] Discharge Disposition: Home or Self Care Social History Tobacco Use Types Packs/Day Years Used Date Smoking Tobacco: Former Cigarettes 1 - 08/18/2015 Smokeless Tobacco: Never Alcohol Use Standard Drinks/Week Comments Not Currently 0 (1 standard drink = 0.6 oz pur e alcohol) [facility] Utilities Answer Date Recorded In the past 12 months has e [employer], gas, oil, or water [employer] threatened to shut off services in your [...] any clubs o r organizations such as episcopal groups, unions, fraternal or athletic groups, or [...] Answer Date Recorded PHQ-2 Score 0 04/06/2024 [facility] - Occupational Stress [...] Master's degree (e.g., MA, MS, Aba, MEd, ENGINEERING MANAGER, GAMALIEL) 08/15/2019 Sex and Gender Information Value Date Recorded Sex Assigned at Male 09/09/2023 12:48 PM IN MOLD COATER Gender Identity Male 08/15/2019 2:16 PM CDT [...] oxyCODONE (ROXICODONE) 5 mg immediate release tabletIndications:Ac [place] Pain Exception Take 1 tablet (5 mg [...] Division of Colon and Rectal Surgery in [place], [place] 200 [place] [address] Armida Bullock, JAD, C.N.P., M.S.N. [address] [place] [phone] 06/07/2024 9:20 AM CDT Lab Department of Infusion Therapy in [place], [place] [address] [place] [phone] Mariluz Soler M.D. [address] [place] [phone] 06/07/2024 11:20 AM CDT Office Visit Department of Oncology in [place], [place] [address] [place] [phone] Mariluz Soler M.D. [address] [place] [phone] 06/07/2024 1:00 PM CDT Infusion Department of Oncology in [place], [place] [address] [place] [phone] Mariluz Soler M.D. [address] [place] [phone] 06/17/2024 8:30 AM CDT Appointment Department of Laboratory Medicine and Pathology, [facility] in [place], [place] [address] [place] [phone] Anny Mcneill M.D. [address] [place] [phone] 06/17/2024 9:00 AM CDT Lab Department of Infusion Therapy in [place], [place] [address] [place] [phone] Anny Mcneill M.D. [address] [place] [phone] 06/17/2024 10:45 AM CDT Procedure visit Department of Urology in [place], [place] [address] [place] [phone] Anny Mcneill M.D. [address] [place] [phone] 06/17/2024 1:45 PM CDT Comprehensive Visit Department of Urology in [place], [place] [address] [place] [phone] Ayesha Romero P.A.-C. [address] [place] [phone] 06/17/2024 4:15 PM CDT Comprehensive Visit Department of Urology in [place], [place] [address] [place] [phone] Scotty Tom APRN, UrielNSolitarioP. [address] [place] [phone] documented as of this encounter Goals Goal Patient Goal Type Associated Problems Recent Progress Patient-Stated? Author Eat a balanced, healthy diet Diet Worsening( 11:49 AM CDT) Yes [place], Nadia Boone R.N. Note: 02/14/20 - Has one regular meal daily (supper), otherwise not as hungry and snacks on fruit in AM, chips in evening. Will readdress his dietary goals and see if this makes a difference in his mood. Read Managing My Depression General Improving( 11:43 AM CDT) Yes [place], Nadia Boone R.N. Note: P. 46-48 Create a relapse prevention plan. Spend time with my dog again. General On track( 11:43 AM CDT) Yes Nadia Nickerson R.N. Have some time to himself regularly. General On track( 11:47 AM CDT) Yes [place], Nadia Boone R.N. Note: 01/24/20 - More structure to his day. Thankful for this time to workforce consultant. Recognizing he needs more personal time. Meet with therapist regularly General On track( 020 11:43 AM CDT) Yes [place], Nadia Boone R.N. Note: Dr. Pavan Sorensen, with [employer] in [place], [place]. Take your medication every day Lifestyle On track( 020 11:49 AM CDT) No [place], Nadia Boone R.N. Note: Increased Wellbutrin to 300 mg daily 02/09/20. PHQ-9 Total Score (max 27) < 5 Symptom Management 3(04/06/2024 7:51 PM CDT) No [place], Nadia Boone R.N. Note: Enrollment PHQ9=18 on [...] Total Score: 5 11/25/19 24 9:48 AM IN MOLD COATER documented as of this encounter Care Teams In Mold Coater Relationship Specialty Start Date End Date Kayla Rowland APRN, C.N.P. [address] [place] [phone] PCP - General 03/04/24 Roger Sorensen Therapist 02/14/20 documented as of this encounter
--- OUTSIDE RECORDS SUMMARY | 2024-05-25 00:14 | XMS_ITS | Encounter Summary ---
Author Organization [facility] Address [address] [place] [address] Care Team Providers Care Brick Setter Operator Name Role Phone Kayla Rowland APRN, C.N.P. Primary Care Provide r Encounter Details Date Type Department Care Team (Late st Contact Info) Description 03/23/2024 7:20 AM CDT Telemedicine Department of Oncology in [place], [place] [address] [place] [phone] Patsy Bowser APRN, C.N.P., M.S. 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 Never 12/06/2021 Do you [...] Answer Date Recorded PHQ-2 Score 1 11/25/2023 [facility] of Occupat ional [facility] - Occupational Stress Questionnaire Answer [...] place to sleep or slept in a fci (including now)? No 12/06/2021 Depression Answer Date [...] Master's degree (e.g., MA, MS, Aba, MEd, ELECTRIC SEALING MACHINE OPERATOR, GAMALIEL) 08/15/2019 Sex and Gender Information Value Date Recorded Sex Assigned at Male 09/09/2023 12:48 PM PRESS CLIPPER Gender Identity Male 08/15/2019 2:16 PM CDT Sexual Orientation Straight 08/15/2019 2: 16 PM CDT documented as of this encounter Progress Notes * Patsy Bowser APRN, C.N.P., M.S. - 03/23/2024 7:20 AM CDT SUBJECTIVE PRIMARY CARE PHYSICIAN Kayla Rowland APRN, C.N.P. REQUESTING PROVIDER No referring provider defined for this encounter. LOCAL ONCOLOGIST No care rehabilitation team lead to display PRIMARY [facility] ONCOLOGIST Marin Corral M.D., Ph.D. CHIEF COMPLAINT/REASON FOR CONSULT Heriberto Snowden is a 43 y.o. male who presents via video for evaluation of metastatic colon cancer HISTORY OF PRESENT ILLNESS Mr. Snowden is a 43 y.o. male with the following oncologic history: Oncology History Overview Note Diagnosis: Colon adenocarcinoma, descending- rectosigmoid Current stage and therapy: Stage at diagnosis: IV (month/year 09/01/23) CEA at diagnosis: Pending Molecular characteristics: pMMR [id number]: KRAS G12D, TP53 T155I, APC mut, bTMB [...] Colon, sigmoid, mass at 18 cm, biopsy ([id number]; 09/01/2023): Invasive moderately differentiated adenocarcinoma arising in [...] colonic origin. Immunohistochemical stains were performed at [facility] (block A1). KRT7 is negative while KRT20 [...] Absent EMVI: Present. CEA 7.2 09/25/2023 - Chemotherapy FOLFOXIRI + Bevacizumab ( Fluorouracil / Leucovorin / Oxaliplatin / Irinotecan / Bevacizumab ) Start Date: 09/25/2023 09/25/2023 Genetic Testing and Tumor Genotyping Negative germline genetic testing in 2022; CustomNext: Cancer panel + RNAinsight including genes related to colorectal cancer through [facility]. 11/19/2023 Other After 4 cycles FOLFOXIRI [...] not significantly changed from 01/19/2023. CEA: 1.3 04/26/2024 - Chemotherapy RIP Intera IFL ( Irinotecan / Fluorouracil / Leucovorin ) Floxuridine / dexAMETHasone / Heparin Start Date: 04/26/2024 (Planned) Malignant Neoplasm Of Rectum (HCC) 03/23/2024 - Radiation Therapy Radiation Therapy Treatment Details (Noted on 03/22/2024) Site: Bilateral Pelvis Technique: 3D PEDIATRIC REGISTERED NURSE Goal: Curative Planned Treatment Start Date: 03/23/2024 04/26/2024 - Chemotherapy RIP Intera IFL ( Irinotecan / Fluorouracil / Leucovorin ) Floxuridine / dexAMETHasone / Heparin Start Date: 04/26/2024 (Planned) INTERVAL HISTORY: Mr. Snowden presents via video for reevaluation. Since last seen, Mr. Snowden has had a change in surgeons and a change in his planned for his pelvic disease. The plan is now short course radiation immediate surgery with LAR with temporary ileostomy. He is generally feeling well and wanted to discuss his upcoming surgery and treatment plan. REVIEW OF SYSTEMS Pertinent items are noted in HPI; all other review of systems was negative. PHYSICAL EXAMINATION General: Well appearing 43 y.o. who is in no apparent distress. Appears to be at ECOG performance status 0 Skin: Non-jaundiced. No rashes. Eyes: No scleral icterus. Neuro: Alert and oriented x 3. Calm, interactive and appropriate. No focal neuro deficit. Reports: Labs and imaging have been reviewed. ASSESSMENT / PLAN #1 Metastatic colon cancer I have reviewed all above in depth with Mr. Snowden and his fiancee. Repeat colonoscopy showed persistent rectosigmoid mass, but significant improvement since prior colonoscopy no other significant abnormalities. Repeat CT CA P done shows it is good improvement of his hepatic metastasis and primaryrectosigmoid mass. Colonoscopy shows significant improvement in that rectosigmoid mass from initialdiagnosis. There is no evidence of new disease. At this point, the colorectal surgeons believes that given the fact that this is higher rectal cancer he would benefit from short course radiation prior to surgery, this is scheduled to start today. He will then proceed with surgical resection of his primary mass with a low anterior resection and placement of hepatic arterial infusional pump on March 29. I explained to him that he will then have her pump study and we will plan to see him about a month after surgery with repeat evaluation and discussion of the plan of care. We would plan on starting FUDR as well as systemic therapy which he understands. He also understands that the revision of the ileostomy will occur about 3 months after surgery, butcould be longer if we are still having to treat the metastatic disease in the liver. I have clearly explained to him that there are many uncertainties in having in RIP pump instilled. There is increased risk for biliary sclerosis and other issues which he is understanding of. I have explained to him that sometimes we are unable to give FUDR at the liver function tests are too high and we have to give saline heparin and dexamethasone. The requirement is that he commit to being here for therapy every 2 weeks and we will do our best to treat him and his disease but the trajectory of his course can be uncertain. He understands this. He is very committed to moving forward with plan described above. He does indicate that this has been difficult psychological journey which I can appreciate. He has a psychologist that he follows with as well as multiple other resources he uses to help with his mental health. I have encouraged him to continue with this and reach out if there is anything we can doto help. Therefore, I will continue to follow closely and we will plan on seeing him about a month after surgery for initiation of care and follow-up. Certainly if there is new concerns or questions at any point he knows not to hesitate to contact us at any time. PATIENT EDUCATION Ready to learn, no apparent learning barriers were identified; learning preferences include listening. Explained diagnosis and treatment plan; patient expressed understanding of the content. ADMINISTRATIVE BILLING Total time spent in counseling 40 minutes. documented in this encounter Plan of Treatment Upcoming Encounters Date Type Department Care Team (Late st Contact Info) Description 06/01/2024 9:30 AM CDT Clinical Support Division of Colon and Rectal Surgery in [address] [phone] Armida Bullock APRN, C.N.P., M.S.N. [address] [place] [phone] 06/07/2024 9:20 AM CDT Lab Department of Infusion Therapy in [address] [phone] Mariluz Soler M.D. [address] [place] [phone] 06/07/2024 11:20 AM CDT Office Visit Department of Oncology in [address] [phone] Mariluz Soler M.D. [address] [place] [phone] 06/07/2024 1:00 PM CDT Infusion Department of Oncology in [address] [phone] Mariluz Soler M.D. [address] [place] [phone] 06/17/2024 8:30 AM CDT Appointment Department of Laboratory Medicine and Pathology, [facility], in [place], [place] [address] [place] [phone] Anny Mcneill M.D. [address] [place] [phone] 06/17/2024 9:00 AM CDT Lab Department of Infusion Therapy in [place], [place] [address] [place] [phone] Anny Mcneill M.D. [address] [place] [phone] 06/17/2024 10:45 AM CDT Procedure visit Department of Urology in [place], [place] [address] [place] [phone] Anny Mcneill M.D. [address] [place] [phone] 06/17/2024 1:45 PM CDT Comprehensive Visit Department of Urology in [place], [place] [address] [place] [phone] Ayesha Romero, P.A.-C. [address] [place] [phone] 06/17/2024 4:15 PM CDT Comprehensive Visit Department of Urology in [place], [place] [address] [place] [phone] Scotty Tom, JAD, C.N.P. [address] [place] [phone] documented as of this encounter Goals Goal Patient Goal Type Associated Problems Recent Progress Patient-Stated? Author Eat a balanced, healthy diet Diet Worsening( 11:49 AM CDT) Yes [place], Nadia Boone R.N. Note: 02/14/20 - Has one regular meal daily (supper), otherwise not as hungry and snacks on fruit in AM, chips in evening. Will readdress his dietary goals and see if this makes a difference in his mood. Read Managing My Depression General Improving( 11:43 AM CDT) Yes Glasgow, Nadia K, R.N. Note: P. 46-48 Create a relapse prevention plan. Spend time with my dog again. General On track( 11:43 AM CDT) Yes Nadia Nickerson R.N. Have some time to himself regularly. General On track( 11:47 AM CDT) Yes Krishan, Nadia Boone R.N. Note: 01/24/20 - More structure to his day. Thankful for this time to logging worker. Recognizing he needs more personal time. Meet with therapist regularly General On track( 11:43 AM CDT) Yes Nadia Nickerson R.N. Note: Dr. Pavan Sorensen, with [facility] in [place], [place]. Take your medication every day [...] Neoplasm Of Colon Rectosigmoid Junction (HCC)- Primary Malignant Neoplasm Of Rectum (HCC) Secondary Malignant Neoplasm Liver (HCC) documented in this encounter Additional Health Concerns Assessment Noted Time PHQ-9 Depression Total Score: 5 11/25/19 24 9:48 AM PRESS CLIPPER documented as of this encounter Care Teams Brick Setter Operator Relationship Specialty Start Date End Date Kayla Rowland APRN, C.N.P. [address] [place] [phone] PCP - General 03/04/24 Roger Sorensen Therapist 02/14/20 documented as of this encounter
--- OUTSIDE RECORDS SUMMARY | 2024-05-25 00:14 | XMS_ITS | Encounter Summary ---
Author Organization [facility] Address [address] [place] [address] Care Team Providers Care Rental Car Ferry Driver Name Role Phone Kayla Rowland APRN C.N.P. 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 [address] [place] [phone] [facility] Referral ID Status Reason Start Date Expiration Date Visits Re quested Visits Authorized [id number] Closed 03/22/2024 09/21/2025 1 1 Encounter Details Date Type Department Care Team (Late st Contact Info) Description 03/22/2024 Orders Only Department of Oncology in [place], [place] [address] [place] [phone] Rena Mccray R.N., O.C.N. 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 Never 12/06/2021 Do you [...] Answer Date Recorded PHQ-2 Score 1 11/25/2023 [facility] of Occupat ional Health - Occupational Stress [...] place to sleep or slept in a prison (including now)? No 12/06/2021 Depression Answer Date [...] Master's degree (e.g., MA, MS, Aba, MEd, INFRASTRUCTURE ADMINISTRATOR, GAMALIEL) 08/15/2019 Sex and Gender Information Value Date Recorded Sex Assigned at Male 09/09/2023 12:48 PM DIRECTOR APPOINTMENT Gender Identity Male 08/15/2019 2:16 PM CDT Sexual Orientation Straight 08/15/2019 2: 16 PM CDT documented as of this encounter Plan of Treatment Upcoming Encounters Date Type Department Care Team (Late st Contact Info) Description 06/01/2024 9:30 AM CDT Clinical Support Division of Colon and Rectal Surgery in [place], [place] [address] [place] [phone] Armida Bullock APRN, C.N.P., M.S.N. [address] [place] [phone] 06/07/2024 9:20 AM CDT Lab Department of Infusion Therapy in [place], [place] [address] [place] [phone] Mariluz Soler M.D. [address] [place] [phone] 06/07/2024 11:20 AM CDT Office Visit Department of Oncology in [place], [place] [address] [place] [phone] Mariluz Soler M.D. [address] [place] [phone] 06/07/2024 1:00 PM CDT Infusion Department of Oncology in [place], [place] [address] [place] [phone] Mariluz Soler M.D. [address] [place] [phone] 06/17/2024 8:30 AM CDT Appointment Department of Laboratory Medicine and Pathology, [facility] in [place], [place] [address] [place] [phone] Anny Mcneill M.D. [address] [place] [phone] 06/17/2024 9:00 AM CDT Lab Department of Infusion Therapy in [place], [place] [address] [place] [phone] Anny Mcneill M.D. [address] [place] [phone] 06/17/2024 10:45 AM CDT Procedure visit Department of Urology in [place], [place] [address] [place] [phone] Anny Mcneill M.D. [address] [place] [phone] 06/17/2024 1:45 PM CDT Comprehensive Visit Department of Urology in [place], [place] [address] [place] [phone] Ayesha Romero PSolitarioARogerio [address] [place] [phone] 06/17/2024 4:15 PM CDT Comprehensive Visit Department of Urology in [place], [place] [address] [place] [phone] Scotty Tom, JAD, C.N.P. 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 Author Eat a balanced, healthy diet Diet Worsening( 11:49 AM CDT) Yes [place], Nadia Boone R.N. Note: 02/14/20 - Has one regular meal daily (supper), otherwise not as hungry and snacks on fruit in AM, chips in evening. Will readdress his dietary goals and see if this makes a difference in his mood. Read Managing My Depression General Improving( 11:43 AM CDT) Yes [place], Nadia Boone R.N. Note: P. 46-48 Create a relapse prevention plan. Spend time with my dog again. General On track( 11:43 AM CDT) Yes Krishan, Nadia Boone R.N. Have some time to himself regularly. General On track( 11:47 AM CDT) Yes [place], Michael McgheeN. Note: 01/24/20 - More structure to his day. 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 Recognizing he needs more personal time. Meet with therapist regularly General On track( 11:43 AM CDT) Yes [place], Michael McgheeN. Note: Dr. Pavan Sorensen, with [facility] in [place], [place]. Take your medication every day Lifestyle On track( 11:49 AM CDT) No [place], Michael McgheeN. Note: Increased Wellbutrin to 300 mg daily 02/09/20. PHQ-9 Total Score (max 27) < 5 Symptom Management 3(04/06/2024 7:51 PM CDT) No [place], Nadia Boone RSolitarioN. Note: Enrollment PHQ9=18 on [...] Total Score: 5 11/25/19 24 9:48 AM DIRECTOR APPOINTMENT documented as of this encounter Care Teams Rental Car Ferry Driver Relationship Specialty Start Date End Date Kayla Rowland APRN, C.N.P. [address] [place] [id number] PCP - General 03/04/24 Roger Sorensen Therapist 02/14/20 documented as of this encounter
--- OUTSIDE RECORDS SUMMARY | 2024-05-25 00:14 | XMS_ITS | Encounter Summary ---
Author Organization [facility] Address [address] [place] [address] Care Team Providers Care Chefs Name Role Phone Kayla Rowland APRN C.N.P. Primary Care Provide r Reason for Referral * Radiation Therapy (Routine) - Closed Specialty Diagnoses / Procedures Referred By Contac t Referred To Contact Diagnoses Malignant Neoplasm Of Rectum (HCC) Procedures Management Visit Santosh Washington M.D. 200 [place] [phone] [facility] Referral ID Status Reason Start Date Expiration Date Visits Re quested Visits Authorized [id number] Closed 03/22/2024 03/22/2025 1 1 Reason for Visit * Radiation Therapy (Routine) - Closed Specialty Diagnoses / Procedures Referred By Contac t Referred To Contact Diagnoses Malignant Neoplasm Of Rectum (HCC) Procedures Management Visit Santosh Washington M.D. 200 [place] [phone] [facility] Referral ID Status Reason Start Date Expiration Date Visits Re quested Visits Authorized [id number] Closed 03/22/2024 03/22/2025 1 1 Encounter Details Date Type Department Care Team (Latest Contact Info) Description 03/23/2024 1:58 PM CDT - 03/23/2024 2:22 PM CDT Hospital Encounter Department of Radiation Oncology in [place], [place] 200 [place] [phone] Santosh Washington M.D. 200 [place] [address] Malignant Neoplasm Of Rectum (HCC) Social History [...] week 12/06/2021 How often do you attend [facility] or presybeterian services? Never 12/06/2021 Do you belong to any clubs o r organizations such as anglican groups, unions, fraternal or athletic groups, or [...] Answer Date Recorded PHQ-2 Score 1 11/25/2023 [facility] of Occupat ional Health - Occupational [...] Master's degree (e.g., MA, MS, Aba, MEd, RADIO DIVISION LIEUTENANT, GAMALIEL) 08/15/2019 Sex and Gender Information Value Date Recorded Sex Assigned at Male 09/09/2023 12:48 PM MEDICAL RECORDS CUSTODIAN Gender Identity Male 08/15/2019 2:16 PM CDT Sexual Orientation Straight 08/15/2019 2: 16 PM CDT documented as of this encounter Last Filed Vital Signs Vital Sign Reading Time Taken Comments Blood Pressure - - Pulse - - Temperature - - Respiratory Rate - - Oxygen Saturation - - Inhaled Oxygen Concentration - - Weight 105 kg (232 lb 2.3 oz) 03/23/2024 2:07 PM CDT Height - - Body Mass Index 34.98 03/21/2024 2:29 PM CDT documented in this [...] oxyCODONE (ROXICODONE) 5 mg immediate release tabletIndications:Ac [place] tribes Pain Exception Take 1 tablet (5 mg [...] as of this encounter Progress Notes * Santosh Washington M.D. - 03/23/2024 2:15 PM CDT Diagnosis: 1. Malignant Neoplasm Of Rectum (HCC) Current Radiotherapy: 03/23/2024 9:20 AM Course Summary Plan ID [id number] Fractions treated to date 0 0 0 Planned total fractions 5 5 5 Dosage given to date cGy 0 Planned dose in cGy 2500 2500 2500 [x] Radiation dose schedule reviewed and remains acceptable [x] Dosimetry remains acceptable [x] Radiation technique reviewed and remains acceptable [x] Image guidance reviewed and patient set up and treatment acceptable [x] Pain assessed SUBJECTIVE Heriberto Snowden presents for a management visit. His first treatment is today. OBJECTIVE Wt 105 kg BMI 34.98 kg/m?? ECOG Scorin PHYSICAL EXAM General appearance: alert, appears stated age, and cooperative ASSESSMENT / PLAN The patient is tolerating radiotherapy well. We will continue as planned and he will complete treatment on 03/28/2024, surgery on 03/29/2024 . Discussed and questions answered. Signed by: Santosh Washington M.D. 03/23/2024 2:42 PM CDT documented in this encounter Plan of Treatment Upcoming Encounters Date Type Department Care Team (Late st Contact Info) Description 06/01/2024 9:30 AM CDT Clinical Support Division of Colon and Rectal Surgery in [place], [place] [address] [place] [address] Armida Bullock APRN, C.N.P., M.S.N. [address] [place] [phone] 06/07/2024 9:20 AM CDT Lab Department of Infusion Therapy in [place], [place] [address] [place] [phone] Mariluz Soler M.D. [address] [place] [phone] 06/07/2024 11:20 AM CDT Office Visit Department of Oncology in [place], [place] [address] [place] [phone] Mariluz Soler M.D. [address] [place] [phone] 06/07/2024 1:00 PM CDT Infusion Department of Oncology in [place], [place] [address] [place] [phone] Mariluz Soler M.D. [address] [place] [phone] 06/17/2024 8:30 AM CDT Appointment Department of Laboratory Medicine and Pathology, [facility], in [place], [place] [address] [place] [phone] Anny Mcneill M.D. [address] [place] [phone] 06/17/2024 9:00 AM CDT Lab Department of Infusion Therapy in [place], [place] [address] [place] [phone] Anny Mcneill M.D. [address] [place] [phone] 06/17/2024 10:45 AM CDT Procedure visit Department of Urology in [place], [place] [address] [place] [address] Anny Mcneill M.D. [address] [place] [phone] 06/17/2024 1:45 PM CDT Comprehensive Visit Department of Urology in [place], [place] [address] [place] [phone] Ayesha Romero P.A.-C. [address] [place] [phone] 06/17/2024 4:15 PM CDT Comprehensive Visit Department of Urology in [place], [place] [address] [place] [phone] Scotty Tom APRN CSolitarioNSolitarioP. [address] [place] [phone] Scheduled Orders Name Type Priority Associated Diagnoses Orde r Schedule Management Visit Radiation Oncology Routine Malignant Neoplasm Of Rectum (HCC) Once for 1 Occurrences starting 03/23/2024 until 03/23/2024 documented as of this encounter Goals Goal Patient Goal Type Associated Problems Recent Progress Patient-Stated? Author Eat a balanced, healthy diet Diet Worsening( 11:49 AM CDT) Yes [place], Nadia Boone R.N. Note: 02/14/20 - Has one regular meal daily (supper), otherwise not as hungry and snacks on fruit in AM, chips in evening. Will readdress his dietary goals and see if this makes a difference in his mood. Read Managing My Depression General Improving( 11:43 AM CDT) Yes [place], Nadia Boone R.N. Note: P. 46-48 Create a relapse prevention plan. Spend time with my dog again. General On track( 020 11:43 AM CDT) Yes [place], Nadia Boone R.N. Have some time to himself regularly. General On track( 11:47 AM CDT) Yes [place], Nadia Boone R.N. Note: 01/24/20 - More structure to his day. Thankful for this time to still worker helper. Recognizing he needs more personal time. Meet with therapist regularly General On track( 11:43 AM CDT) Yes [place], Michael McgheeN. Note: Dr. Pavan Sorensen, with [facility] in [place], [place]. Take your medication every day Lifestyle On track( 11:49 AM CDT) No [place], Nadia Boone R.N. Note: Increased Wellbutrin to 300 mg daily 02/09/20. PHQ-9 Total Score (max 27) < 5 Symptom Management 3(04/06/2024 7:51 PM CDT) No [place], Nadia Boone, R.N. Note: Enrollment PHQ9=18 on [...] Total Score: 5 11/25/19 24 9:48 AM MEDICAL RECORDS CUSTODIAN documented as of this encounter Care Teams Chefs Relationship Specialty Start Date End Date Kayla Rowland APRN, C.N.P. [address] [place] [phone] PCP - General 03/04/24 Roger Sorensen Therapist 02/14/20 documented as of this encounter
--- OUTSIDE RECORDS SUMMARY | 2024-05-25 00:15 | XMS_ITS | Encounter Summary ---
Author Organization [facility] Address [address] [place] [address] Care Team Providers Care Chief Optometry Service Name Role Phone Kayla Rowland APRN C.N.P. Primary Care Provide r Reason for Referral * Radiation Therapy (Routine) - Closed Specialty Diagnoses / Procedures Referred By Contac t Referred To Contact Diagnoses Malignant Neoplasm Of Rectum (HCC) Procedures Management Visit Santosh Washington M.D. [address] [place] [phone] [facility] Referral ID Status Reason Start Date Expiration Date Visits Re quested Visits Authorized [id number] Closed 03/22/2024 03/22/2025 1 1 * Radiation Therapy (Routine) - Closed Specialty Diagnoses / Procedures Referred By Contac t Referred To Contact Diagnoses Malignant Neoplasm Of Rectum (HCC) Procedures Initial Rad Onc Treatment Planning CT Simulation Santosh Washington M.D. [address] [place] [phone] [facility] Referral ID Status Reason Start Date Expiration Date Visits Re quested Visits Authorized [id number] Closed 03/22/2024 03/22/2025 1 1 * Radiation Therapy (Routine) - Closed Specialty Diagnoses / Procedures Referred By Contac t Referred To Contact Diagnoses Malignant Neoplasm Of Rectum (HCC) Procedures Prior Auth Rad Tx DE RADTN TX DEL >=1 MEV COMPLEX DE GUIDANCE FOR LOC RAD TX DE 3D RAD THER ISODOSE FIELD PLAN Santosh Washington M.D. [address] [place] [address] [facility] Referral ID Status Reason Start Date Expiration Date Visits Re quested Visits Authorized [id number] Closed 03/23/2024 10/18/2024 5 5 Encounter Details Date Type Department Care Team (Late st Contact Info) Description 03/22/2024 Orders Only Department of Radiation Oncology in [place], [place] [address] [place] [phone] Bren Vega P.A.-C., M.S. [address] [place] [phone] Malignant Neoplasm Of Rectum (HCC) (Primary Dx) [...] often do you attend chur ch or restoration services? Never 12/06/2021 Do you belong to [...] Answer Date Recorded PHQ-2 Score 1 11/25/2023 [facility] - Occupational [...] place to sleep or slept in a alf (including now)? No 12/06/2021 Depression Answer Date [...] Master's degree (e.g., MA, MS, Aba, MEd, S3B MULTI SENSOR OPERATOR, GAMALIEL) 08/15/2019 Sex and Gender Information Value Date Recorded Sex Assigned at Male 09/09/2023 12:48 PM SAP ARIBA CONSULTANT Gender Identity Male 08/15/2019 2:16 PM CDT Sexual Orientation Straight 08/15/2019 2: 16 PM CDT documented as of this encounter Plan of Treatment Upcoming Encounters Date Type Department Care Team (Late st Contact Info) Description 06/01/2024 9:30 AM CDT Clinical Support Division of Colon and Rectal Surgery in [place], [place] [address] [place] [phone] Armida Bullock APRN, C.N.P., M.S.N. [address] [place] [phone] 06/07/2024 9:20 AM CDT Lab Department of Infusion Therapy in [place], [place] [address] [place] [phone] Mariluz Soler M.D. [address] [place] [phone] 06/07/2024 11:20 AM CDT Office Visit Department of Oncology in [place], [place] [address] [place] [phone] Mariluz Soler M.D. [address] [place] [phone] 06/07/2024 1:00 PM CDT Infusion Department of Oncology in [place], [place] [address] [place] [phone] Mariluz Soler M.D. [address] [place] [phone] 06/17/2024 8:30 AM CDT Appointment Department of Laboratory Medicine and Pathology, [facility] in [place], [place] [address] [place] [phone] Anny Mcneill M.D. [address] [place] [phone] 06/17/2024 9:00 AM CDT Lab Department of Infusion Therapy in [place], [place] [address] [place] [phone] Anny Mcneill M.D. [address] [place] [phone] 06/17/2024 10:45 AM CDT Procedure visit Department of Urology in [place], [place] [address] [place] [phone] Anny Mcneill M.D. [address] [place] [phone] 06/17/2024 1:45 PM CDT Comprehensive Visit Department of Urology in [place], [place] [address] [place] [phone] Ayesha Romero P.A.-C. [address] [place] [phone] 06/17/2024 4:15 PM CDT Comprehensive Visit Department of Urology in [place], [place] [address] [place] [phone] Scotty Tom APRN, C.N.P. [address] [place] [phone] Scheduled Orders Name Type Priority Associated Diagnoses Order Schedule Prior Auth Rad Tx Radiation Oncology Routine Malignant Neoplasm Of Rectum (HCC) Ordered: 03/22/2024 Management Visit Radiation Oncology Routine Malignant Neoplasm Of Rectum (HCC) 1 Occurrences starting 03/22/2024 until 03/22/2027 documented as of this encounter Goals Goal Patient Goal Type Associated Problems Recent Progress Patient-Stated? Author Eat a balanced, healthy diet Diet Worsening( 11:49 AM CDT) Yes [place], Nadia Boone R.N. Note: 02/14/20 - Has one regular meal daily (supper), otherwise not as hungry and snacks on fruit in AM, chips in evening. Will readdress his dietary goals and see if this makes a difference in his mood. Read Managing My Depression General Improving( 11:43 AM CDT) Yes [place], Nadia Boone R.N. Note: P. 46-48 Create a relapse prevention plan. Spend time with my dog again. General On track( 11:43 AM CDT) Yes [place], Nadia Boone R.N. Have some time to himself regularly. General On track( 11:47 AM CDT) Yes [place], Nadia Boone R.N. Note: 01/24/20 - More structure to his day. 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 Recognizing he needs more personal time. Meet with therapist regularly General On track(04/28/2 020 11:43 AM CDT) Yes Nadia Nickerson R.N. Note: Dr. Pavan Sorensen, with [facility] in [place], [place]. Take your medication every day Lifestyle [...] documented as of this encounter Results * Initial Rad Onc Treatment Planning CT Simulation (03/22/2024 3:30 PM CDT) Narrative RODRIGUEZ JENNIFER - 03/22/2024 3:30 PM CDT Caitlin Smalls, RTT ? 03/22/2024 ??3:44 PM Initial Rad Onc Treatment Planning CT Simulation Performed by: Santosh Washington M.D. Authorized by: Santosh Washington M.D. ?? Santosh Washington M.D. RADIATION ONCOLOG Y ORDERABLES [place] JENNIFER na documented in this encounter Visit Diagnoses Diagnosis Malignant Neoplasm Of Rectum (HCC)- Primary Malignant Neoplasm Of Rectum (HCC) documented in this encounter Additional Health Concerns Assessment Noted Time PHQ-9 Depression Total Score: 5 11/25/19 24 9:48 AM SAP ARIBA CONSULTANT documented as of this encounter Care Teams Chief Optometry Service Relationship Specialty Start Date End Date Kayla Rowland APRN, C.N.P. [address] [place] [phone] PCP - General 03/04/24 Roger Sorensen Therapist 02/14/20 documented as of this encounter
--- OUTSIDE RECORDS SUMMARY | 2024-05-25 00:15 | XMS_ITS | Encounter Summary ---
Author Organization [facility] Address [address] [place] [phone] Care Team Providers Care Optometric Aide Name Role Phone Kayla Rowland APRN, C.N.P. 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 [address] [place] [phone] [facility] Referral ID Status Reason Start Date Expiration Date Visits Re quested Visits Authorized [id number] Closed 01/25/2024 07/26/2025 1 1 Encounter Details Date Type Department Care Team (Latest Contact Info) Description 03/21/2024 2:30 PM CDT Comprehensive Visit Preoperative Evaluation Center in [place], [place] [address] [place] [phone] Chris Viera D.O., M.B.A. [address] [place] [phone] Kathi Anderson APRN, C.N.P. 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 Never 12/06/2021 Do you belong to any clubs o r organizations such as zoroastrian groups, unions, fraternal or athletic groups, or [...] Answer Date Recorded PHQ-2 Score 1 11/25/2023 [facility] - Occupational Stress Questionnaire Answer [...] place to sleep or slept in a half-way (including now)? No 12/06/2021 Depression Answer Date [...] have received? Master's degree (e.g., MA, MS, bAa, MEd, GRANTS ANALYST, GAMALIEL) 08/15/2019 Sex and Gender Information Value Date Recorded Sex Assigned at Male 09/09/2023 12:48 PM LION TRAINER Gender Identity Male 08/15/2019 2:16 PM CDT Sexual Orientation Straight 08/15/2019 2: 16 PM CDT documented as of this encounter Last Filed Vital Signs Vital Sign Reading Time Taken Comments Blood Pressure 151/98 03/21/2024 2:29 PM CDT Pulse 62 03/21/2024 2:29 PM CDT Temperature 36.6 ??C (97.9 ??F) 03/21/2024 2:29 PM CD T Respiratory Rate - - Oxygen Saturation 99% 03/21/2024 2:29 PM CDT Inhaled Oxygen Concentration - - Weight 106 kg (233 lb 14.5 oz) 03/21/2024 2:29 P M CDT Height 173.5 cm (5' 8.31) 03/21/2024 2:29 PM CD T Body Mass Index 35.25 03/21/2024 2:29 PM CDT documented in this encounter H&P Notes * Kathi Anderson, JAD, C.N.P. - 03/21/2024 2:30 PM CDT REASON FOR VISIT: Preoperative Medical Evaluation REFERRING PHYSICIAN: Chris Viera D.O., M.B.A. 03/29/2024: HEPATIC ARTERY INFUSION PUMP PLACEMENT; Chris Viera D.O., M.B.A. Surgery Specific Risk Classification: Elevated Risk SUBJECTIVE HISTORY OF PRESENT ILLNESS Heriberto Snowden is a 43 y.o. male who is here for preanesthetic medical examination prior tothe planned procedure as listed above. REVIEW OF SYSTEMS The following systems were negative: Constitutional, Respiratory, Cardiovascular, Neurological OBJECTIVE OBJECTIVE PHYSICAL EXAMINATION General/Constitutional Constitutional Assessment: Obese General State of Health: Healthy appearing Airway (HEENT) Mallampati: III TM Distance: >3 FB Neck ROM: Full Mouth Opening: > 3 cm Upper Lip Bite Test: I Dental Assessment: Dentition intact Cardiovascular Rhythm: Regular Rate: Normal Cardiovascular Assessment: Normal Pulmonary Pulmonary Assessment: Clear and non labored Neurological Neurologic Assessment: Alert and oriented X 3 Musculoskeletal MSK Assessment: Normal Gait: Normal Ambulate with: None Psychiatric Psychiatric Assessment: Calm Dermatology Skin Assessment: normal ASSESSMENT / PLAN Anesthesia: Patient reports previous anesthesia related complications -patient reports vomiting upon awakening from Port-A-Cath placement.. Airway Hx: None Lab: CBC, type and screen, CMP dated 03/21/2024-reviewed. ECG: Not indicated. #1 Preanesthetic Medical Exam Very pleasant male. 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 He has had to reduce his exercise while he has been treated with chemotherapy. He continues to run, bike and ski when able. He exercises two to 3 times a week. He stopped smoking eight years ago with a five pack year history.He does not drink alcohol. He drinks 20-30 ounces of coffee daily. #2 Malignant Neoplasm Of Rectum (HCC) #3 Secondary Malignant Neoplasm Liver (HCC) Patient was diagnosed with malignancy of the colon rectosigmoid junction in 09/07/2023. He was alsonoted to have multiple heterogeneously enhancing lesions in the liver which were biopsied and proven to be metastatic. He has been treated with FOLFOXIRI and bevacizumab. His last chemotherapy was on02/12/2024. He is met with the hepatobiliary and pancreatic surgery team. He is scheduled for surgery on 03/29/2024. #4 Hypertension Essential Primary Blood pressure elevated today at 151/98. Blood pressure readings in EMR note systolic readings in the 130-140's and diastolic readings in the high 80s to 90s. He is treated amlodipine. Instructed to take a.m. of surgery. 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 Instructed to take a.m. of surgery. Patient notes he is not taking Ativan currently-he only took this with receiving chemotherapy. #6 Obesity Body Mass Index 30-39.9 Adult BMI 35.2. PATIENT EDUCATION: Reviewed Instructions To Get Ready for Your Surgery or Procedure: [facility] [id number] rev 0124. Written and verbal instructions given on medication management beforesurgery. Reviewed instructions on avoiding aspirin, ibuprofen-containing medications, and supplements one week before surgery. Patient may take acetaminophen as needed for pain. RECOMMENDATIONS: Patient medically optimized for planned procedure: Yes Further Recommendations: None documented in this encounter Plan of Treatment Upcoming Encounters Date Type Department Care Team (Late st Contact Info) Description 06/01/2024 9:30 AM CDT Clinical Support Division of Colon and Rectal Surgery in [place], [place] [address] [place] [phone] Armida Bullock APRN, C.N.P., M.S.N. [address] [place] [phone] 06/07/2024 9:20 AM CDT Lab Department of Infusion Therapy in [address] [phone] Mariluz Soler M.D. [address] [place] [phone] 06/07/2024 11:20 AM CDT Office Visit Department of Oncology in [address] [phone] Mariluz Soler M.D. [address] [place] [phone] 06/07/2024 1:00 PM CDT Infusion Department of Oncology in [place], [place] [address] [place] [phone] Mariluz Soler M.D. [address] [place] [phone] 06/17/2024 8:30 AM CDT Appointment Department of Laboratory Medicine and Pathology, [facility] in [place], [place] [address] [place] [phone] Anny Mcneill M.D. [address] [place] [phone] 06/17/2024 9:00 AM CDT Lab Department of Infusion Therapy in [place], [place] [address] [place] [phone] Anny Mcneill M.D. [address] [place] [phone] 06/17/2024 10:45 AM CDT Procedure visit Department of Urology in [place], [place] [address] [place] [phone] Anny Mcneill M.D. [address] [place] [phone] 06/17/2024 1:45 PM CDT Comprehensive Visit Department of Urology in [place], [place] [address] [place] [phone] Ayesha Romero, PSolitarioASolitario-C. [address] [place] [phone] 06/17/2024 4:15 PM CDT Comprehensive Visit Department of Urology in [place], [place] [address] [place] [phone] Scotty Tom, JAD, C.N.P. [address] [place] [phone] documented as of this encounter Goals Goal Patient Goal Type Associated Problems Recent Progress Patient-Stated? Author Eat a balanced, healthy diet Diet Worsening( 11:49 AM CDT) Yes [place], Nadia Boone R.N. Note: 02/14/20 - Has one regular meal daily (supper), otherwise not as hungry and snacks on fruit in AM, chips in evening. Will readdress his dietary goals and see if this makes a difference in his mood. Read Managing My Depression General Improving( 11:43 AM CDT) Yes [place], Nadia Boone R.N. Note: P. 46-48 Create a relapse prevention plan. Spend time with my dog again. General On track( 11:43 AM CDT) Yes [place], Nadia Boone R.N. Have some time to himself regularly. General On track( 11:47 AM CDT) Yes [place], Nadia Boone R.N. Note: 01/24/20 - More structure to his day. 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 Recognizing he needs more personal time. Meet with therapist regularly General On track( 11:43 AM CDT) Yes [place], Nadia Boone R.N. Note: Dr. Pavan Sorensen, with [employer] [facility] in [place], [place]. Take your medication every day Lifestyle On track( 11:49 AM CDT) No [place], Michael McgheeN. Note: Increased Wellbutrin to 300 mg daily 02/09/20. PHQ-9 Total Score (max 27) < 5 Symptom Management 3(04/06/2024 7:51 PM CDT) No [place], Nadia Boone R.N. Note: Enrollment PHQ9=18 on 08/16/19 Patient goals at enrollment: 1. I'd like to have my depression be less intense. 2. I'd like to learn some coping strategies. 3. 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 [address] [place] [phone] PCP - General 03/04/24 Roger Sorensen Therapist 02/14/20 documented as of this encounter
--- OUTSIDE RECORDS SUMMARY | 2024-05-25 00:15 | XMS_ITS | Encounter Summary ---
Author Organization [facility] Address [address] [place] [address] Care Team Providers Care Actuarial Assistant Name Role Phone Kayla Rowland APRN, C.N.P. Primary Care Provide r Encounter Details Date Type Department Care Team (Late st Contact Info) Description 03/21/2024 8:20 AM CDT Lab Department of Infusion Therapy in [place], [place] [address] [place] [phone] Chris Viera D.O., M.B.A. [address] [place] [phone] Malignant Neoplasm Of Rectum (HCC) (Primary Dx); [...] How often do you attend chur or methodist services? Never 12/06/2021 Do you [...] Answer Date Recorded PHQ-2 Score 1 11/25/2023 [facility] Questionnaire Answer Date [...] Master's degree (e.g., MA, MS, Aba, MEd, REPRODUCTIVE SURGEON, GAMALIEL) 08/15/2019 Sex and Gender Information Value Date Recorded Sex Assigned at Male 09/09/2023 12:48 PM MILL RECORDER Gender Identity Male 08/15/2019 2:16 PM CDT Sexual Orientation Straight 08/15/2019 2: 16 PM CDT documented as of this encounter Plan of Treatment Upcoming Encounters Date Type Department Care Team (Late st Contact Info) Description 06/01/2024 9:30 AM CDT Clinical Support Division of Colon and Rectal Surgery in [place], [place] 200 [place] [address] Armida Bullock APRN, C.N.P., M.S.N. [address] [place] [phone] 06/07/2024 9:20 AM CDT Lab Department of Infusion Therapy in [place], [place] [address] [place] [phone] Mariluz Soler M.D. [address] [place] [phone] 06/07/2024 11:20 AM CDT Office Visit Department of Oncology in [place], [place] [address] [place] [phone] Mariluz Soler M.D. [address] [place] [phone] 06/07/2024 1:00 PM CDT Infusion Department of Oncology in [place], [place] [address] [place] [phone] Mariluz Soler M.D. [address] [place] [phone] 06/17/2024 8:30 AM CDT Appointment Department of Laboratory Medicine and Pathology, [facility], in [place], [place] [address] [place] [phone] Anny Mcneill M.D. [address] [place] [phone] 06/17/2024 9:00 AM CDT Lab Department of Infusion Therapy in [place], [place] [address] [place] [phone] Anny Mcneill M.D. [address] [place] [phone] 06/17/2024 10:45 AM CDT Procedure visit Department of Urology in [place], [place] [address] [place] [phone] Anny Mcneill M.D. [address] [place] [phone] 06/17/2024 1:45 PM CDT Comprehensive Visit Department of Urology in [place], [place] [address] [place] [phone] Ayesha Romero P.A.-C. [address] [place] [phone] 06/17/2024 4:15 PM CDT Comprehensive Visit Department of Urology in [place], [place] [address] [place] [phone] Scotty Tom APRN, CSolitarioNSolitarioP. [address] [place] [phone] documented as of this encounter Goals Goal Patient Goal Type Associated Problems Recent Progress Patient-Stated? Author Eat a balanced, healthy diet Diet Worsening( 11:49 AM CDT) Yes Flora, Nadia Boone R.N. Note: 02/14/20 - Has one regular meal daily (supper), otherwise not as hungry and snacks on fruit in AM, chips in evening. Will readdress his dietary goals and see if this makes a difference in his mood. Read Managing My Depression General Improving( 11:43 AM CDT) Yes Flora, Nadia Boone R.N. Note: P. 46-48 Create a relapse prevention plan. Spend time with my dog again. General On track( 11:43 AM CDT) Yes Nadia Nickerson R.N. Have some time to himself regularly. General On track( 11:47 AM CDT) Yes Flora, Nadia Boone R.N. Note: 01/24/20 - More structure to his day. Thankful for this time to healthcare network consultant. Recognizing he needs more personal time. Meet with therapist regularly General On track( 11:43 AM CDT) Yes Flora, Nadia Boone R.N. Note: Dr. Pavan Sorensen, with [facility] in [place], [place]. Take your medication every day Lifestyle On track( 11:49 AM CDT) No Flora, Nadia Boone R.N. Note: Increased Wellbutrin to [...] Procedure Name Priority Date/Time Associated Diagnosis Comments PROTHROMBIN TIME (PT), P Routine 8:57 AM CDT 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) CBC WITH DIFFERENTIAL, B Routine 8:57 AM CDT 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) TYPE AND SCREEN Routine 03/21/2024 8:57 AM CDT Malignant Neoplasm Of Rectum (HCC) Secondary Malignant Neoplasm Liver (HCC) CARCINOEMBRYONIC AG (CEA), S Routine 03/21/2024 [...] (HCC) documented in this encounter Results * CEA (Carcinoembryonic Antigen) (03/21/2024 8:57 AM CDT) Carcinoembryonic Ag (CEA), S 1.3 ng/mL 03/21/2024 4:32 PM CDT [facility] Comment: ----REFERENCE VALUE---- <=3.0 (Non-smokers) Some smokers may have elevated CEA, usually <5.0. ----ADDITIONAL INFORMATION---- The testing method is an immunoenzymatic assay manufactured by [employer]. and performed on the [employer] 800. ? Values obtained with different assay methods or kits may be different and cannot be used interchangeably. ? Test results cannot be interpreted as absolute evidence for the presence or absence of malignant disease. Blood (Blood, Venous) 03/21/2024 8:57 AM CDT 03/21/2024 2:56 PM CDT Rosa Umana D.O.A. LAB BLOO D ADD-ON [facility] [address] [place] [address] [facility] [address] [place] [address] * Bilirubin, Direct (03/21/2024 8:57 AM CDT) Bilirubin, Direct, S <0.2 0.0 - 0.3 mg/dL 03/21/2024 9:58 AM CDT DTL Blood (Blood, Venous) 03/21/2024 8:57 AM CDT 03/21/2024 9:26 AM CDT Marlin Umana D.O..A. LAB BLOO D ADD-ON Performing Organization Address [facility] Co de Phone Number [facility] 200 [place] [address], [place] [address] * Prothrombin Time (PT) (03/21/2024 8:57 AM CDT) Prothrombin Time, P 10.9 9.4 - 12.5 sec 03/21/2024 9:29 AM CDT DTL INR 1.0 0.9 - 1.1 03/21/2024 9:29 AM CDT DTL Comment: ----ADDITIONAL INFORMATION---- Standard intensity warfarin therapeutic range: 2.0 to 3.0 ?? High intensity warfarin therapeutic range: 2.5 to 3.5 Blood (Blood, Venous) 03/21/2024 8:57 AM CDT 03/21/2024 9:08 AM CDT Chris Viera D.O., M.B.A. LAB BLOO D ADD-ON Performing Organization Address [facility] Co de Phone Number [facility] 200 [place] [address], [place] [address] * Comprehensive Metabolic Panel (03/21/2024 8:57 AM CDT) Potassium, S 4.3 3.6 - 5.2 mmol/L 03/21/2024 9:58 AM CDT DTL Sodium, S 138 135 - 145 mmol/L 03/21/2024 9:58 AM CDT DTL Chloride, S 102 98 - 107 mmol/L 03/21/2024 9:58 AM CDT DTL Bicarbonate, S 27 22 - 29 mmol/L 03/21/2024 9:58 AM CDT DTL Anion Gap 9 7 - 15 03/21/2024 9:58 AM CDT DTL BUN (Blood Urea Nitrogen), S 13 8 - 24 mg/dL 03/21/2024 9:58 AM CDT DTL Creatinine 0.96 0.74 - 1.35 mg/dL 03/21/2024 9:58 AM CDT DTL Estimated GFR (eGFR) >90 >=60 mL/min/BS A 03/21/2024 9:58 AM CDT DTL Comment: Estimated GFR calculated using the 2020 CKD_EPI creatinine equation. Calcium, Total, S 8.9 8.6 - 10.0 mg/dL 03/21/2024 9:58 AM CDT DTL Glucose, S 91 70 - 140 mg/dL 03/21/2024 9:58 AM CDT DTL Protein, Total, S 6.4 6.3 - 7.9 g/dL 03/21/2024 9:58 AM CDT DTL Albumin, S 4.8 3.5 - 5.0 g/dL 03/21/2024 9:58 AM CDT DTL Aspartate Aminotransferase (AST), S 23 8 - 48 U/L 03/21/2024 9:58 AM CDT DTL Alkaline Phosphatase, S 49 40 - 129 U/L 03/21/2024 9:58 AM CDT DTL Alanine Aminotransferase (ALT), S 32 7 - 55 U/L 03/21/2024 9:58 AM CDT DTL Bilirubin, Total, S 0.4 0.0 - 1.2 mg/dL 03/21/2024 9:58 AM CDT DTL Blood (Blood, Venous) 03/21/2024 8:57 AM CDT 03/21/2024 9:26 AM CDT Chris Viera D.O. M.B.A. LAB BLOO D ADD-ON [facility] [address] [place] [address], [facility] [address] [place] [address] * CBC with Differential, Blood (03/21/2024 8:57 AM CDT) Hemoglobin 16.3 13.2 - 16.6 g/dL 03/21/2024 9:58 AM CDT DTL Hematocrit 47.6 38.3 - 48.6 % 03/21/2024 9:58 AM CDT DTL Erythrocytes 5.26 4.35 - 5.65 x10(12)/L 03/21/2024 9:58 AM CDT DTL MCV 90.5 78.2 - 97.9 fL 03/21/2024 9:58 AM CDT DTL RBC Distrib Width 12.4 11.8 - 14.5 % 03/21/2024 9:58 AM CDT DTL Platelet Count 182 135 - 317 x10(9)/L 03/21/2024 9:58 AM CDT DTL Leukocytes 5.2 3.4 - 9.6 x10(9)/L 03/21/2024 9:58 AM CDT DTL Neutrophils 2.54 1.56 - 6.45 x10(9)/L 03/21/2024 9:58 AM CDT DH[facility] Lymphocytes 1.91 0.95 - 3.07 x10(9)/L 03/21/2024 9:58 AM CDT DTL Monocytes 0.46 0.26 - 0.81 x10(9)/L 03/21/2024 9:58 AM CDT DTL Eosinophils 0.20 0.03 - 0.48 x10(9)/L 03/21/2024 9:58 AM CDT DTL Basophils 0.08 0.01 - 0.08 x10(9)/L 03/21/2024 9:58 AM CDT DTL Blood (Blood, Venous) 03/21/2024 8:57 AM CDT 03/21/2024 9:08 AM CDT Diego Umana D.O.B.A. LAB BLOO D ADD-ON [facility] [address] [place] [address], [facility] DTL [facility] [address] [place] [address] [facility] [address] [place] [address] * Type and Screen (with Reflex Antibody ID) (03/21/2024 8:57 AM CDT) Pathologist [facility] ABORh A Pos Not applicable 03/21/2024 5:17 PM CDT ETRM Antibody Screen Negative Negative 03/21/2024 5:32 PM CDT ETRM Type & Screen Expiration 05/19/2024 23:59 03/21/2024 5:17 PM CDT ETRM Testing Location [place] DEFAULT 03/21/2024 11:42 AM CDT ETRM Blood (Blood, Venous) 03/21/2024 8:57 AM CDT 03/21/2024 11:42 AM CDT Diego Umana D.O.BSolitarioASolitario LAB BLOO D BANK TEST ORDERABLES [facility] [address] [place] [address], [place] ETRM [facility] [address] [place] [address] documented in this encounter Visit Diagnoses Diagnosis Malignant Neoplasm Of Rectum (HCC)- Primary Secondary Malignant Neoplasm Liver (HCC) 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) documented in this encounter Administered Medications Inactive Administered Medications - up to 3 most recent administrations Medication Order MAR Action Action Date Dose Rate Site heparin flush 500 Units 500 Units, intra-catheter, As needed, line care, Starting on Thu03/21/24 at 0847, When IVAD accessed and not infusing: When no infusion to maintain patency flush every 7 days following NaCL flush. 5 mL (500 units) of Heparin 100 units/mL to each port/lumen. When IVAD not accessed or infusing: When no infusion to maintain patency flush every 28 days following NaCL flush. 5 mL (500 units) of Heparin 100 units/mL to each port/lumen. Given 03/21/2024 8:59 AM CDT 500 Units sodium chloride 0.9 % injection 20-40 mL 20-40 mL, intra-catheter, As needed, line care, Starting on Thu03/21/24 at 0847, When IVAD accessed and infusing: Flush prior to blood sampling, post blood transfusion or post blood sampling. 20 mL to each port/lumen. Given 03/21/2024 8:59 AM CDT 40 mL documented in this encounter Additional Health Concerns Assessment Noted Time PHQ-9 Depression Total Score: 5 11/25/19 24 9:48 AM MILL RECORDER documented as of this encounter Care Teams Actuarial Assistant Relationship Specialty Start Date End Date Kayla Rowland APRN, C.N.P. [address] [place] [phone] PCP - General 03/04/24 Roger Sorensen Therapist 02/14/20 documented as of this encounter
--- OUTSIDE RECORDS SUMMARY | 2024-05-25 00:15 | XMS_ITS | Encounter Summary ---
Author Organization [facility] Address 200 [place] [address] Care Team Providers Care Consulting Group Analyst Name Role Phone Kayla Rowland APRN, C.N.P. 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 [address] [place] [phone] [facility] Referral ID Status Reason Start Date Expiration Date Visits Re quested Visits Authorized [id number] Closed 02/04/2024 08/05/2025 1 1 Encounter Details Date Type Department Care Team ([facility] st Contact Info) Description 03/21/2024 1:00 PM CDT Office Visit Division of Hepatobiliary and Pancreas Surgery in [place], [place] [address] [place] [address] Chris Viera D.O., M.B.A. [address] [place] [phone] Secondary Malignant Neoplasm Liver (HCC) (Primary Dx); [...] often do you attend chur ch or church services? Never 12/06/2021 Do you [...] [facility] - Occupational [...] place to sleep or slept in a intermediate (including now)? No 12/06/2021 Depression Answer Date [...] degree (e.g., MA, MS, Aba, MEd, ELECTRIC TRIPPER MACHINE OPERATOR, GAMALIEL) 08/15/2019 Sex and Gender Information Value Date Recorded Sex Assigned at Male 09/09/2023 12:48 PM HEALTH ADVISOR Gender Identity Male 08/15/2019 2:16 PM CDT Sexual Orientation Straight 08/15/2019 2: 16 PM CDT documented as of this encounter Progress Notes * Chris Viera D.O., M.B.A. - 03/21/2024 1:00 PM CDT Images from the original note were not included. SURGICAL ONCOLOGY SUBSEQUENT VISIT NOTE SUBJECTIVE SUBJECTIVE Since our last visit Mr. Snowden comes for restaging. Was able to finish the school year. He is clinically doing very well. No symptoms. OBJECTIVE PHYSICAL EXAMINATION General appearance: Mr. Snowden is well appearing and in no acute distress. DIAGNOSTICS Notable new diagnostics include: CT Abd 1. Improving hepatic metastases. No new or progressive lesions. 2. The rectosigmoid primary lesion is no longer identifiable. Locoregional lymphadenopathy has improved. Conventional vascular anatomy in the upper abdomen, with the common hepatic artery arising from theceliac axis and supplying the both hepatic lobes. CT Chest 1. Two new indeterminate pulmonary nodules measuring [address] follow-up is recommended. 2. Additional findings, including multiple additional pulmonary nodules, have not significantly changed from 01/19/2023. 3. This examination was performed in conjunction with a CT of the abdomen, which will be reported separately. Discussed at multidisciplinary pump case conference Labs LFT ok CEA 1.3 ASSESSMENT / PLAN #1 Consideration of Hepatic Artery Infusion (RIP) Chemotherapy Pump placement. We discussed his diagnosis and treatment options. He would over 15 lesions initially with excellentresponse to chemotherapy with now only about 5 remaining. Discussed that his disease is technicallyresectable but I am very worried about the risk of hepatic recurrence given the high number of disap pearing lesions and would therefore recommend resection/ablation combined with hepatic artery infusion pump placement. This to be combined with resection of the primary and he would need a cholecystectomy. He will see colorectal tomorrow. We discussed at length the risks and benefits. He would liketo proceed. Consent obtained for below. CONSENT We discussed the risk, benefits, and alternatives to surgery. We discussed the risk of complications including, but not limited to, bleeding, infection, and hernia. Liver specific complications including abscess, bile leak, and liver failure. Pump specific complications include risk of pump malfunction, bleeding/hematoma, infection, pain, bile duct injury, and biliary sclerosis/liver failure. Cholecystectomy specific complications include risk of bile duct injury. Discussed at length the intensiveness and duration of RIP treatments and the need to return every 2 weeks for pump fills. We have d iscussed at length the implications and logistics of RIP therapy. Discussed the plan for a pump study after surgery and the risk of extrahepatic perfusion. Complications may result in the need for additional procedures to manage these complications, including surgeries or additional drain placement, and an extended hospital stay and recovery. Other risk include the possible need for blood transfusion, risk of cardiopulmonary, risk of other systemic complications, and risk of major complicationsincluding risk of . Discussed the risk of recurrence or progression despite therapy and particularly the risk extrahepatic progression. We discussed implications of pump removal including that only the pump not the tubing would be removed in the future. [facility] team utilizes a team approach and physicians in training and PLANT UTILITIES ENGINEER/PA???s may be involved in the management of the patient. Patientwas given the opportunity to ask questions and after verbalizing an understanding of the risks, benefits, and alternatives to the treatment plan the patient and family elected to proceed with surgery. documented in this encounter Plan of Treatment Upcoming Encounters Date Type Department Care Team (Late st Contact Info) Description 06/01/2024 9:30 AM CDT Clinical Support Division of Colon and Rectal Surgery in [place], [place] [address] [place] [phone] Armida Bullock APRN, C.N.P., M.S.N. [address] [place] [phone] 06/07/2024 9:20 AM CDT Lab Department of Infusion Therapy in [place], [place] [address] [place] [phone] Mariluz Soler M.D. [address] [place] [phone] 06/07/2024 11:20 AM CDT Office Visit Department of Oncology in [place], [place] [address] [place] [phone] Mariluz Soler M.D. [address] [place] [phone] 06/07/2024 1:00 PM CDT Infusion Department of Oncology in [place], [place] [address] [place] [phone] Mariluz Soler M.D. [address] [place] [phone] 06/17/2024 8:30 AM CDT Appointment Department of Laboratory Medicine and Pathology, [facility], in [place], [place] [address] [place] [phone] Anny Mcneill M.D. [address] [place] [phone] 06/17/2024 9:00 AM CDT Lab Department of Infusion Therapy in [place], [place] [address] [place] [phone] Anny Mcneill M.D. [address] [place] [phone] 06/17/2024 10:45 AM CDT Procedure visit Department of Urology in [place], [place] [address] [place] [phone] Anny Mcneill M.D. [address] [place], [place] [phone] 06/17/2024 1:45 PM CDT Comprehensive Visit Department of Urology in [place], [place] [address] [place] [phone] Ayesha Romero P.A.-C. [address] [place] [phone] 06/17/2024 4:15 PM CDT Comprehensive Visit Department of Urology in [place], [place] [address] [place] [phone] Scotty Tom APRN, C.N.P. [address] [place] [phone] documented as of this encounter Goals Goal Patient Goal Type Associated Problems Recent Progress Patient-Stated? Author Eat a balanced, healthy diet Diet Worsening( 11:49 AM CDT) Yes [place], Nadia Boone R.N. Note: 02/14/20 - Has one regular meal daily (supper), otherwise not as hungry and snacks on fruit in AM, chips in evening. Will readdress his dietary goals and see if this makes a difference in his mood. Read Managing My Depression General Improving( 11:43 AM CDT) Yes [place] R.N. Note: P. 46-48 Create a relapse prevention plan. Spend time with my dog again. General On track( 11:43 AM CDT) Yes Nadia Nickerson R.N. Have some time to himself regularly. General On track( 11:47 AM CDT) Yes [place] R.N. Note: 01/24/20 - More structure to his day. 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 Recognizing he needs more personal time. Meet with therapist regularly General On track( 11:43 AM CDT) Yes Nadia Nickerson R.N. Note: Dr. Pavan Sorensen, with [facility] in [place], [place]. Take your medication every day Lifestyle On track( 11:49 AM CDT) No [place], Nadia Boone R.N. Note: Increased Wellbutrin to [...] documented as of this encounter Results * NM Hepatic Pump [...] assessed with a contrast-enhanced study. Chris Viera D.O. M.BSolitarioA. 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 [address] [place] [phone] PCP - General 03/04/24 Roger Sorensen Therapist 02/14/20 documented as of this encounter
--- OUTSIDE RECORDS SUMMARY | 2024-05-25 00:15 | XMS_ITS | Encounter Summary ---
Author Organization [facility] Address [address] [place] [id number] Care Team Providers Care Traveling Clerk Name Role Phone Kayla Rowland APRN C.N.P. Primary Care Provide r Reason for Referral * Outpatient (Routine) - Closed Specialty Diagnoses / Procedures Referred By Keya olivares Referred To Contact Diagnoses Malignant Neoplasm Of Rectum (HCC) Procedures Stomal Therapy Tej Quintanilla M.B., Mike., M.P.H. 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 [address] [place] [phone] [facility] Referral ID Status Reason Start Date Expiration Date Visits Re quested Visits Authorized [id number] Closed 02/04/2024 08/05/2025 1 1 Encounter Details Date Type Department Care Team (Latest Contact Info) Description 03/22/2024 10:00 AM CDT Comprehensive Visit Division of Colon and Rectal Surgery in [place], [place] [address] [place] [phone] Tej Quintanilla M.B., Ch.B., M.P.H. [address] [place] [address] Malignant Neoplasm Of Rectum (HCC) (Primary Dx); [...] How often do you attend chur or faith services? Never 12/06/2021 Do you belong to any clubs o r organizations such as confucianism groups, unions, fraternal or athletic groups, or [...] Answer Date Recorded PHQ-2 Score 1 11/25/2023 [facility] - Occupational Stress [...] place to sleep or slept in a skilled nursing (including now)? No 12/06/2021 Depression Answer Date [...] Master's degree (e.g., MA, MS, Aba, MEd, CLEANING CUSTODIAN, GAMALIEL) 08/15/2019 Sex and Gender Information Value Date Recorded Sex Assigned at Male 09/09/2023 12:48 PM PRICER Gender Identity Male 08/15/2019 2:16 PM CDT Sexual Orientation Straight 08/15/2019 2: 16 PM CDT documented as of this encounter Consult Notes * Tej Quintanilla M.B., Ch.B., M.P.H. - 03/22/2024 10:00 AM CDT OUTPATIENT CONSULTATION Division of Colon & Rectal Surgery Heriberto Snowden is a 43 y.o. y.o. male who was referred by Chris Viera D.O., M.B.A.. YG Louis's history is well documented by the referring provider above and in the summary below. Further, his oncology history is as follows: Oncology History Overview Note Diagnosis: Colon adenocarcinoma, descending- rectosigmoid Current stage and therapy: Stage at diagnosis: IV (month/year 09/01/23) CEA at diagnosis: Pending Molecular characteristics: pMMR [id number]: KRAS G12D, TP53 T155I, APC mut, bTMB [...] Colon, sigmoid, mass at 18 cm, biopsy ([id number]; 09/01/2023): Invasive moderately differentiated adenocarcinoma arising in [...] colonic origin. Immunohistochemical stains were performed at [facility] (block A1). KRT7 is negative while [...] including genes related to colorectal cancer through [facility]. 11/19/2023 Other After 4 cycles FOLFOXIRI and [...] grade dysplasia. 03/21/[address] cap: 04/26/2024 - Chemotherapy RIP Intera IFL ( Irinotecan / Fluorouracil / Leucovorin ) Floxuridine / dexAMETHasone / Heparin Start Date: 04/26/2024 (Planned) Malignant Neoplasm Of Rectum (HCC) 09/25/2023 Genetic Testing and Tumor Genotyping Negative germline genetic testing in 2022; [employer]: Cancer panel + RNAinsight including genes related to colorectal cancer through [facility]. 11/19/2023 Other After 4 cycles FOLFOXIRI [...] grade dysplasia. 03/21/[address] cap: 03/23/2024 - Radiation Therapy Radiation Therapy Treatment Details (Noted on 03/22/2024) Site: Bilateral Pelvis Technique: No technique specified Goal: Curative Planned Treatment Start Date: 03/23/2024 04/26/2024 - Chemotherapy RIP Intera IFL ( Irinotecan / Fluorouracil / Leucovorin ) Floxuridine / dexAMETHasone / Heparin Start Date: 04/26/2024 (Planned) The following portions of the patient's history were reviewed and updated as appropriate: allergies, current medications, family history, medical history, social history, surgical history and problemlist. OBJECTIVE Clinical Examination Pertinent examination findings are documented in the summary below. Investigations CT Chest with IV Contrast Result Date: 03/21/2024 EXAM: CT CHEST WITH IV CONTRAST COMPARISON: Chest CT 01/19/2023 FINDINGS: New 1-2 mm posterior right upper lobe pulmonary micronodule on . New 3 mm left lower lobe nodule on . Additional sub-6 mm solid noncalcified pulmonary nodules which are unchanged from 09/04/2023. For example (on series 3): Right upper lobe on image 220 Right middle lobe on 279, 328 Right lower lobe on 348, 438 Left upper lobe 210 339 Left lower lobe on 370, 385, 389, 416, 419, 504 Calcified pulmonary granulomas. Clear central airways. Mild diffuse bronchial wall thickening has not significantly changed, likely inflammatory. No pneumothorax or pleural effusion. No size significant thoracic lymphadenopathy. Small amount of morphologically normal residual thymic tissue in the prevascular mediastinum, similar tothe prior. Calcified mediastinal and hilar lymph nodes are unchanged and compatible with prior granulomatous disease. Right chest wall port catheter with tip in the right atrium. No pericardial effusion. Enlarged and multinodular thyroid gland is similar to the prior chest CTs; thyroid ultrasound was previously performed on the outside on 08/26/2018. Nonspecific focus of sclerosis in the left anterior third rib on is similar to the priors. No new suspicious osseous lesions. This examination was performed in conjunction with a CT of the abdomen, which will be reported separately. 1. Two new indeterminate pulmonary nodules measuring [address] CT follow-up is recommended. 2. Additional findings, including multiple additional pulmonary nodules, have not significantly changed from 01/19/2023. 3. This examination was performed in conjunction with a CT of the abdomen, which will be reported separately. CT Abdomen Pelvis with IV Contrast Result Date: 03/21/2024 EXAM: CT ABDOMEN PELVIS WITH IV CONTRAST COMPARISON: CTs 01/20/2024 and 11/18/2023. MRI 01/20/2024. FINDINGS: Improving hepatic metastases. Many of the metastases seen on 09/04/2023 are no longer identifiable. The largest remaining is at the hepatic dome, 0.9 cm (Series 1, Image 11), compared to 1.1 cm on 01/20/2024 and 1.9 cm 09/04/2023. 5 others are only vaguely identifiable. No new or progressive lesions. There is no focal masslike thickening in the rectosigmoid. Residual small focus of soft tissuethickening adjacent to or extending from the left side of the rectosigmoid (Series 1, Image 123). The locoregional pericolonic and inferior mesenteric chain lymphadenopathy has improved. The largest residual node is 5 mm. No ascites or evidence of discrete peritoneal metastatic disease. No suspicious osseous lesion. Gallbladder, pancreas, spleen, adrenal glands are negative. Bilateral renal cysts. This examination was performed in conjunction with a CT of the chest, which will be reported separately. 1. Improving hepatic metastases. No new or progressive lesions. 2. The rectosigmoid primary lesion is no longer identifiable. Locoregional lymphadenopathy has improved. Colonoscopy-Gastroenterology Image Exam Result Date: 03/16/2024 This order has been created and auto-finalized to support the import of images acquired without order. The clinical documentation to support these images can be found on the encounter that produced images. MR Abdomen without and with IV Contrast Result Date: 01/21/2024 EXAM: MR ABDOMEN WITHOUT AND WITH IV CONTRAST COMPARISON: MR 09/14/2023, CT 01/20/2024 FINDINGS: Decreased size of the lesion in the posterior right hepatic lobe now measuring 6 mm compared to 11 mm on09/14/2023 (series 19, image 72). Decreased size of the lesion in the caudate lobe now measuring 6 mm compared to 13 mm on 09/14/2023 (series 19, image 75). Decreased size of an upper right hepatic lobe lesion now measuring 9 x 6 mm compared to 11 x 9 mm (series 19, image 59). Decreased size of a 6mm lesion in segment IV (series 19, image 63), previously 14 mm on 09/14/2023. Decreased now 5 mm lesion at the hepatic dome (Series 19, image 40), previously 10 mm. Decreased now 9 mm lesion at the h epatic dome (series 19, image 23) previously 15 mm. Several other lesions within the liver also appear smaller. No new lesion identified. The gallbladder, spleen, pancreas and adrenal glands are normal. Bilateral renal cysts. No enlarged abdominal lymph nodes. Colonic diverticulosis. Primary rectosigmoid lesion is outside the field of view on most sequences. No suspicious bony lesions. 1. Decreased size of multiple hepatic metastases. No new lesions identified. CT Abdomen Pelvis Angiogram with IV Contrast Result Date: 01/20/2024 EXAM: CT ABDOMEN PELVIS ANGIOGRAM WITH IV CONTRAST. Including 3D image post- processing with or without AI assistance. COMPARISON: CT dated 11/18/2023. FINDINGS: - VASCULAR FINDINGS: Conventional arterial anatomy of the upper abdomen. The common hepatic artery arises from the right side of the celiac artery (series 5 image 49) distal to the origin of the left gastric artery. It gives off the gastroduodenal artery inferiorly and the left hepatic artery superiorly, and continues as the right hepatic artery. No vascular abnormality in the portal or hepatic venous system. ADDITIONAL FINDINGS: Againdemonstrated are multiple hepatic metastases, with the largest in the right liver dome measuring 1.0 cm (series 6 image 15) compared to 1.2 cm previously. Other lesions are slightly smaller or stablesince previously. No new suspicious hepatic lesions seen. Tiny cyst in the right liver dome. The previously noted concentric wall thickening of the rectosigmoid junction is not as well seen. Mild left mesonephric soft tissue thickening along the distal sigmoid (series 6 image 142) is again seen butsmaller than previously. The previously seen mesorectal and superior rectal lymph nodes are furtherdecreased in size, the largest superior rectal lymph node measuring 6 mm in short axis (series 6 image 132) compared to 7 mm previously. The previously noted mildly prominent mesenteric lymph node isstable, measuring 1.0 cm in short axis (series 6 image 65). Tiny hiatal hernia. Contracted gallbladder. The spleen, pancreas, and adrenal glands are unremarkable. Small bilateral renal cysts. Normal caliber small and large bowel. Colonic diverticulosis. Diffusely thickened and trabeculated urinary bladder wall. Stable calcified loose body posterior to the midline seminal vesicles. No suspicious osseous lesions seen. Stable calcified granulomas in the left lower lobe. 1. Conventional vascular anatomy in the upper abdomen, with the common hepatic artery arising from the celiac axis and supplying the both hepatic lobes. 2. Slight further decrease in size of hepatic metastases and mildly improved mesorectal and superior rectal lymphadenopathy. CT Chest with IV Contrast Result Date: 01/20/2024 EXAM: CT CHEST WITH IV CONTRAST COMPARISON: 09/04/2023 and 11/18/[address] FINDINGS: Solid noncalcified pulmonary nodules on series 3 have not substantially changed since 09/04/2023. For example, 3 mm left basilar nodule on image 464, 4 mm left lower lobe nodule on image 386, 3 mm right basilar nodule on image 417, 3-4 mm right upper lobe nodule on image 155. The central tracheobronchial tree is patent. No new pleural effusion or thickening identified. Shotty subcentimeter nodes without thoracic adenopathy by size criteria. Right chest Port-A-Cath tip in the upper right atrium, unchanged. N odular goiter with low suspicion nodules per prior ultrasound is again identified. Left anterior third rib sclerotic focus on series 3 image 184 is stable. No new aggressive osseous lesions identified. Thank you for the consultation. This examination was performed in conjunction with a CT of the abd omen, which will be reported separately. 3D maximum intensity projection (MIP) images were created on a dependent workstation as ordered by the treating provider and reviewed by the radiologist to increase sensitivity for detection of pulmonary nodules. 1. No CT evidence of new thoracic metastases. 2. Solid noncalcified pulmonary nodules have not substantially changed since 09/04/2023. 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 Viera. He has been under the care of Dr. Fitzpatrick and Oncology, however Dr. 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 Today provided an opportunity to meet with Heriberto, review his goals and priorities alongside his history and investigations to date. We discussed his original diagnosis in some detail. In review of the imaging, although this has been documented as a sigmoid cancer, it does appear to be a T3cN+ upper rectal cancer with compromised MRF anteriorly in several notable tumor deposits with bilobar multifocal hepatic metastases. He has been on FOLFOXIRI and bevacizumab with what appears to be a very good response. He is thus proceeding with pump placement next Thursday. I explained today that I think he would benefit from short course radiation given the initial MR findings. I believe this will likely reduce his risk of local recurrence. I have been able to coordinate with radiation oncology who very kindly enabled him to receive this prior to his scheduled surgery next week. I discussed the operation in detail, namely an open anterior resection primary anastomosis and diverting loop ileostomy. We discussed the operation in detail including potential permutations, risks, benefits and alternatives. We covered the risks specific to the intended procedure, alongside those associated with any operation including DVTs, PEs, respiratory, cardiovascular and neurological complications. Further, we discussed the expected post-operative recovery and permutations thereof. I look forward to seeing him again soon. documented in this encounter Plan of Treatment Upcoming Encounters Date Type Department Care Team (Late st Contact Info) Description 06/01/2024 9:30 AM CDT Clinical Support Division of Colon and Rectal Surgery in [address] [phone] Armida Bullock APRN, C.N.P., M.S.N. [address] [place] [phone] 06/07/2024 9:20 AM CDT Lab Department of Infusion Therapy in [address] [phone] Mariluz Soler M.D. [address] [place] [phone] 06/07/2024 11:20 AM CDT Office Visit Department of Oncology in [address] [phone] Mariluz Soler M.D. [address] [place] [phone] 06/07/2024 1:00 PM CDT Infusion Department of Oncology in [address] [phone] Mariluz Soler M.D. [address] [place] [phone] 06/17/2024 8:30 AM CDT Appointment Department of Laboratory Medicine and Pathology, [facility], in [place], [place] [address] [place] [phone] Anny Mcneill M.D. [address] [place] [phone] 06/17/2024 9:00 AM CDT Lab Department of Infusion Therapy in [place], [place] [address] [place] [phone] Anny Mcneill M.D. [address] [place] [phone] 06/17/2024 10:45 AM CDT Procedure visit Department of Urology in [place], [place] [address] [place] [phone] Anny Mcneill M.D. [address] [place] [phone] 06/17/2024 1:45 PM CDT Comprehensive Visit Department of Urology in [place], [place] [address] [place] [phone] Ayesha Romero, P.A.-C. [address] [place] [phone] 06/17/2024 4:15 PM CDT Comprehensive Visit Department of Urology in [place], [place] [address] [place] [phone] Scotty Tom, DATABASE COORDINATOR, C.N.P. [address] [place] [phone] documented as of this encounter Goals Goal Patient Goal Type Associated Problems Recent Progress Patient-Stated? Author Eat a balanced, healthy diet Diet Worsening( 11:49 AM CDT) Yes Cornland, Nadia Boone R.N. Note: 02/14/20 - Has one regular meal daily (supper), otherwise not as hungry and snacks on fruit in AM, chips in evening. Will readdress his dietary goals and see if this makes a difference in his mood. Read Managing My Depression General Improving( 11:43 AM CDT) Yes CornlandNadia R.N. Note: P. 46-48 Create a relapse prevention plan. Spend time with my dog again. General On track( 11:43 AM CDT) Yes Krishan, Nadia Boone R.N. Have some time to himself regularly. General On track( 11:47 AM CDT) Yes Cornland, Michael McgheeN. Note: 01/24/20 - More structure to his day. 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 Recognizing he needs more personal time. Meet with therapist regularly General On track( 11:43 AM CDT) Yes Cornland, Nadia Boone R.N. Note: Dr. Pavan Sorensen, with [facility] in [place], [place]. Take your medication every day Lifestyle On track( 11:49 AM CDT) No CornlandNadia R.N. Note: Increased Wellbutrin to 300 mg daily 02/09/20. PHQ-9 Total Score (max 27) < 5 Symptom Management 3(04/06/2024 7:51 PM CDT) No CornlandNadia, R.N. Note: Enrollment PHQ9=18 on 08/16/19 Patient [...] Total Score: 5 11/25/19 24 9:48 AM PRICER documented as of this encounter Care Teams Traveling Clerk Relationship Specialty Start Date End Date Kayla Rowland APRN, C.N.P. [address] [place] [phone] PCP - General 03/04/24 Roger Sorensen Therapist 02/14/20 documented as of this encounter
--- OUTSIDE RECORDS SUMMARY | 2024-05-25 00:15 | XMS_ITS | Encounter Summary ---
Author Organization [facility] Address [address] [place] [phone] Care Team Providers Care Technical Sales Associate Name Role Phone Kayla Rowland APRN C.N.P. Primary Care Provide r Reason for Referral * Radiation Therapy (Routine) - Closed Specialty Diagnoses / Procedures Referred By Contac t Referred To Contact Diagnoses Malignant Neoplasm Of Rectum (HCC) Procedures Initial Rad Onc Treatment Planning CT Simulation Santosh Washington M.D. 200 [place] [address] [facility] Referral ID Status Reason Start Date Expiration Date Visits Re quested Visits Authorized [id number] Closed 03/22/2024 03/22/2025 1 1 Reason for Visit * Radiation Therapy (Routine) - Closed Specialty Diagnoses / Procedures Referred By Contac marshall Referred To Contact Diagnoses Malignant Neoplasm Of Rectum (HCC) Procedures Initial Rad Onc Treatment Planning CT Simulation Santosh Washington M.D. 200 [place] [address] [facility] Referral ID Status Reason Start Date Expiration Date Visits Re quested Visits Authorized [id number] Closed 03/22/2024 03/22/2025 1 1 Encounter Details Date Type Department Care Team (Latest Contact Info) Description 03/22/2024 3:23 PM CDT - 03/22/2024 4:20 PM CDT Hospital Encounter Department of Radiation Oncology in [place], [place] 200 [place] [address] Santosh Washington M.D. [address] [place] [address] Malignant Neoplasm Of Rectum (HCC) Social History Tobacco Use Types Packs/Day Years Used Date Smoking Tobacco: Former Cigarettes 1 - 08/18/2015 Smokeless Tobacco: Never Alcohol Use Standard Drinks/Week Comments Not Currently 0 (1 standard drink = 0.6 oz pur e alcohol) [facility] Utilities Answer Date Recorded In the past 12 months has e [employer], gas, oil, or water [employer] threatened to shut off services in your [...] often do you attend chur ch or jewish services? Never 12/06/2021 Do you belong to [...] Answer Date Recorded PHQ-2 Score 1 11/25/2023 [facility] Occupat ional [facility] - [...] Master's degree (e.g., MA, MS, Aba, MEd, MATERIALS RESEARCH ENGINEER, GAMALIEL) 08/15/2019 Sex and Gender Information Value Date Recorded Sex Assigned at Male 09/09/2023 12:48 PM HUMAN RESOURCES MGR Gender Identity Male 08/15/2019 2:16 PM CDT [...] 04/03/2024 05/20/2024 documented as of this encounter Procedure Notes * Caitlin Smalls, RTT - 03/22/2024 3:30 PM CDTAssociated Order(s): Initial Rad Onc Treatment Planning CT Simulation Pre-Procedure Diagnose(s): Malignant Neoplasm Of Rectum (HCC) Post-Procedure Diagnose(s): Malignant Neoplasm Of Rectum (HCC) Initial Rad Onc Treatment Planning CT Simulation Performed by: Santosh Washington M.D. Authorized by: Santosh Washington M.D. Simulation was performed under physician supervision based on physician order in preparation for radiation therapy. Physician was immediately available to provide assistance and direction throughout the procedure. Written consent for treatment was completed or confirmed. The patient was appropriately identified and placed in the treatment position using the necessary immobilization to ensure a reproducible treatment position. Reference smiley were placed to facilitate marking of isocenter. Area scanned:Abdomen and Pelvis Contrast used for the simulation procedure: IV Patient position:head first supine Custom immobilization: Vac-melania and Knee Cushion Motion management: None Bolus: No CT guidance: Following positioning of the patient, a series of slices was obtained to be utilized in treatment planning. CT images were transferred to the [employer] treatment planning system, after a reference isocenter was determined and marked. Segmentation and treatment planning will take place prior to treatment delivery. Patient set up and imaging was appropriate and completed without incident. Screen Maker use:No Associated attestation - Santosh Washington M.D. - 03/22/2024 4:20 PM CDT I was present during all critical and maloney portions of the procedure(s) and immediately available [facility] the entire duration. See note for details. documented in this encounter Plan of Treatment Upcoming Encounters Date Type Department Care Team (Late st Contact Info) Description 06/01/2024 9:30 AM CDT Clinical Support Division of Colon and Rectal Surgery in [place], [place] [address] [place] [address] Armida Bullock APRN, C.N.P., M.S.N. [address] [place] [phone] 06/07/2024 9:20 AM CDT Lab Department of Infusion Therapy in [place], [place] [address] [place] [phone] Mariluz Soler M.D. [address] [place] [phone] 06/07/2024 11:20 AM CDT Office Visit Department of Oncology in [place], [place] [address] [place] [phone] Mariluz Soler M.D. [address] [place] [phone] 06/07/2024 1:00 PM CDT Infusion Department of Oncology in [place], [place] [address] [place] [phone] Mariluz Soler M.D. [address] [place] [phone] 06/17/2024 8:30 AM CDT Appointment Department of Laboratory Medicine and Pathology, [facility], in [place], [place] [address] [place] [phone] Anny Mcneill M.D. [address] [place] [phone] 06/17/2024 9:00 AM CDT Lab Department of Infusion Therapy in [place], [place] [address] [place] [phone] Anny Mcneill M.D. [address] [place] [phone] 06/17/2024 10:45 AM CDT Procedure visit Department of Urology in [place], [place] [address] [place] [address] [place] [phone] Anny Mcneill M.D. [address] [place], [place] [phone] 06/17/2024 1:45 PM CDT Comprehensive Visit Department of Urology in [place], [place] [address] [place] [phone] Ayesha Romero P.A.-C. [address] [place] [phone] 06/17/2024 4:15 PM CDT Comprehensive Visit Department of Urology in [place], [place] [address] [place] [phone] Soctty Tom APRN, C.NSolitarioP. [address] [place] [phone] documented as of this encounter Goals Goal Patient Goal Type Associated Problems Recent Progress Patient-Stated? Author Eat a balanced, healthy diet Diet Worsening( 11:49 AM CDT) Yes [place], Nadia Boone R.N. Note: 02/14/20 - Has one regular meal daily (supper), otherwise not as hungry and snacks on fruit in AM, chips in evening. Will readdress his dietary goals and see if this makes a difference in his mood. Read Managing My Depression General Improving( 11:43 AM CDT) Yes [place], Nadia Boone R.N. Note: P. 46-48 Create a relapse prevention plan. Spend time with my dog again. General On track( 11:43 AM CDT) Yes [place]ia R.N. Have some time to himself regularly. General On track( 11:47 AM CDT) Yes [place], Nadia Boone R.N. Note: 01/24/20 - More structure to his day. 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 Recognizing he needs more personal time. Meet with therapist regularly General On track( 11:43 AM CDT) Yes Krishan, Nadia Boone R.N. Note: Dr. Pavan Sorensen, with [facility] in [place], [place]. Take your medication every day Lifestyle [...] Procedure Name Priority Date/Time Associated Diagnosis Comments INITIAL RAD ONC TREATMENT PLANNING CT SIMULATION Routine 03/22/2024 3:30 PM CDT Malignant Neoplasm Of Rectum (HCC) documented in this encounter Results * Initial Rad Onc Treatment Planning CT Simulation (03/22/2024 3:30 PM CDT) Narrative MICHAEL RODRIGUEZ - 03/22/2024 3:30 PM CDT Caitlin Smalls E, RTT ? 03/22/2024 ??3:44 PM Initial Rad Onc Treatment Planning CT Simulation Performed by: Santosh Washington M.D. Authorized by: Santosh Washington M.D. ?? Santosh Washington M.D. RADIATION ONCOLOG Y ORDERABLES MICHAEL RODRIGUEZ na documented in this encounter Visit Diagnoses Diagnosis Malignant Neoplasm Of Rectum (HCC) documented in this encounter Additional Health Concerns Assessment Noted Time PHQ-9 Depression Total Score: 5 11/25/19 24 9:48 AM HUM[employer] MGR documented as of this encounter Care Teams Technical Sales Associate Relationship Specialty Start Date End Date Kayla Rowland APRN, C.N.P. [address] [place] [phone] PCP - General 03/04/24 Roger Sorensen Therapist 02/14/20 documented as of this encounter
--- OUTSIDE RECORDS SUMMARY | 2024-05-25 00:15 | XMS_ITS | Encounter Summary ---
Author Organization [facility] Address [address] [place] [address] Care Team Providers Care Vat Cleaner Name Role Phone Kayla Rowland APRN C.N.P. 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 [address] [place] [phone] [facility] Referral ID Status Reason Start Date Expiration Date Visits Re quested Visits Authorized [id number] Closed 02/04/2024 02/03/2025 1 1 Encounter Details Date Type Department Care Team (Late st Contact Info) Description 03/21/2024 7:34 AM CDT - 03/21/2024 11:59 PM CDT Hospital Encounter Department of Radiology, [facility], in [place], [place] [address] [place] [address] Chris Viera D.O., M.B.A. 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 Never 12/06/2021 Do you belong to [...] Answer Date Recorded PHQ-2 Score 1 11/25/2023 [facility] of Occupat ional Health [...] place to sleep or slept in a snf (including now)? No 12/06/2021 Depression Answer Date [...] have received? Master's degree (e.g., MA, MS, Aab, MEd, COUNTER POCKET TRIMMER, GAMALIEL) 08/15/2019 Sex and Gender Information Value Date Recorded Sex Assigned at Male 09/09/2023 12:48 PM BEEF SKINNER Gender Identity Male 08/15/2019 2:16 PM CDT [...] Division of Colon and Rectal Surgery in [place], [place] [address] [place] [phone] Armida Bullock APRN, C.N.P., M.S.N. [address] [place] [phone] 06/07/2024 9:20 AM CDT Lab Department of Infusion Therapy in [place], [place] [address] [place] [phone] Mariluz Soler M.D. [address] [place] [phone] 06/07/2024 11:20 AM CDT Office Visit Department of Oncology in [place], [place] [address] [place] [phone] Mariluz Soler M.D. [address] [place] [phone] 06/07/2024 1:00 PM CDT Infusion Department of Oncology in [place], [place] [address] [place] [phone] Mariluz Soler M.D. [address] [place] [phone] 06/17/2024 8:30 AM CDT Appointment Department of Laboratory Medicine and Pathology, [facility] in [place], [place] [address] [place] [phone] Anny Mcneill M.D. [address] [place] [phone] 06/17/2024 9:00 AM CDT Lab Department of Infusion Therapy in [place], [place] [address] [place] [phone] Anny Mcneill M.D. [address] [place] [phone] 06/17/2024 10:45 AM CDT Procedure visit Department of Urology in [place], [place] [address] [place] [phone] Anny Mcneill M.D. [address] [place] [phone] 06/17/2024 1:45 PM CDT Comprehensive Visit Department of Urology in [place], [place] [address] [place] [phone] Ayesha Romero P.A.-C. [address] [place] [phone] 06/17/2024 4:15 PM CDT Comprehensive Visit Department of Urology in [place], [place] [address] [place] [phone] Scotty Tom APRN, UrielNSolitarioP. [address] [place] [phone] documented as of this encounter Goals Goal Patient Goal Type Associated Problems Recent Progress Patient-Stated? Author Eat a balanced, healthy diet Diet Worsening( 11:49 AM CDT) Yes [place], Nadia Boone R.N. Note: 02/14/20 - Has one regular meal daily (supper), otherwise not as hungry and snacks on fruit in AM, chips in evening. Will readdress his dietary goals and see if this makes a difference in his mood. Read Managing My Depression General Improving( 11:43 AM CDT) Yes [place], Nadia Boone R.N. Note: P. 46-48 Create a relapse prevention plan. Spend time with my dog again. General On track( 11:43 AM CDT) Yes [place], Nadia Boone R.N. Have some time to himself regularly. General On track( 11:47 AM CDT) Yes [place], Nadia Boone, R.N. Note: 01/24/20 - More structure to his day. 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 Recognizing he needs more personal time. Meet with therapist regularly General On track( 11:43 AM CDT) Yes [place], Nadia Boone R.N. Note: Dr. Pavan Sorensen, with [facility] in [place], [place]. Take your medication every day Lifestyle [...] * CT Abdomen Pelvis with IV Contrast (03/21/2024 8:17 AM CDT) Anatomical Region Laterality Modality Abdomen, Pelvis, Abdominal R ST LOS, Abdominal ARZ LOS, Abdominal FLA LOS N/A Computed Tomograp hy, Computed Tomography 03/21/2024 8:13 AM CDT Impressions 03/21/2024 8:33 AM CDT 1. Improving hepatic metastases. No new or progressive lesions. 2. The rectosigmoid primary lesion is no longer identifiable. Locoregional lymphadenopathy has improved. Narrative 03/21/2024 8:33 AM CDT EXAM: ??CT ABDOMEN PELVIS WITH IV CONTRAST COMPARISON: ??CTs 01/20/2024 and 11/18/2023. MRI 01/20/2024. FINDINGS: ??Improving hepatic metastases. Many of the metastases seen on 09/04/2023 are no longer identifiable. The largest remaining is at the hepatic dome, 0.9 cm (Series 1, Image 11), compared to 1.1 cm on 01/20/2024 and 1.9 cm 09/04/2023. 5 others are only vaguely identifiable. No new or progressive lesions. There is no focal masslike thickening in the rectosigmoid. Residual small focus of soft tissue thickening adjacent to or extending from the left [...] which will be reported separately. Procedure Note Panda Epstein M.D. - 03/21/2024 EXAM: CT ABDOMEN PELVIS WITH IV CONTRAST COMPARISON: CTs 01/20/2024 and 11/18/2023. MRI 01/20/2024. FINDINGS: Improving hepatic metastases. Many of the metastases seen on09/04/2023 are no longer identifiable. The largest remaining is at thehepatic dome, 0.9 cm (Series 1, Image 11), compared to 1.1 cm on 01/20/2024nd 1.9 cm 09/04/2023. 5 others are only vaguely identifiable. No new or progressive lesions. There is no focal masslike thickening in the rectosigmoid. Residual smallfocus of soft tissue thickening adjacent to or extending from the leftside of the rectosigmoid (Series 1, Image 123). The locoregional pericolonic and inferior mesenteric chain lymphadenopathyhas improved. The largest residual node is 5 mm. No ascites or evidence of discrete peritoneal metastatic disease. No suspicious osseous lesion. Gallbladder, pancreas, spleen, adrenal glands are negative. Bilateralrenal cysts. This examination was performed in conjunction with a CT of the chest,which will be reported separately. IMPRESSION: 1. Improving hepatic metastases. No new or progressive lesions. 2. The rectosigmoid primary lesion is no longer identifiable. Locoregionallymphadenopathy has improved. Diego Umana D.O.BSolitarioA. IMG CT P ROCEDURES * CT Chest with IV Contrast (03/21/2024 8:17 AM CDT) Anatomical Region Laterality Modality Chest, Thoracic RST LOS, Tho racic ARZ LOS, Thoracic ARZ LOS, Thoracic FLA LOS N/A Computed Tomography, Compute d Tomography 03/21/2024 8:14 AM CDT Impressions 03/21/2024 1:40 PM CDT 1. ??Two new indeterminate pulmonary nodules measuring [address] CT follow-up is recommended. 2. ??Additional findings, including multiple additional pulmonary nodules, have not significantly changed from 01/19/2023. 3. ??This examination was performed in conjunction with a CT of the abdomen, which will be reported separately. Narrative 03/21/2024 1:40 PM CDT EXAM: CT CHEST WITH IV CONTRAST COMPARISON: [...] thymic tissue in the prevascular mediastinum, similar to the prior. Calcified mediastinal and hilar lymph nodes [...] which will be reported separately. Procedure Note Latasha Persaud M.D. - 03/21/2024 EXAM: CT CHEST WITH IV CONTRAST COMPARISON: Chest CT 01/19/2023 FINDINGS: New 1-2 mm posterior right upper lobe pulmonary micronodule on . New3 mm left lower lobe nodule on . Additional sub-6 mm solid noncalcified pulmonary nodules which areunchanged from 09/04/2023. For example (on series 3): Right upper lobe on image 220 Right middle lobe on 279, 328 Right lower lobe on 348, 438 Left upper lobe 210 339 Left lower lobe on 370, 385, 389, 416, 419, 504 Calcified pulmonary granulomas. Clear central airways. Mild diffusebronchial wall thickening has not significantly changed, likelyinflammatory. No pneumothorax or pleural effusion. No size significant thoracic lymphadenopathy. Small amount ofmorphologically normal residual thymic tissue in the prevascularmediastinum, similar to the prior. Calcified mediastinal and hilar lymphnodes are unchanged and compatible with prior granulomatous disease. Right chest wall port catheter with tip in the right atrium. Nopericardial effusion. Enlarged and multinodular thyroid gland is similar to the prior chest CTs;thyroid ultrasound was previously performed on the outside on 08/26/2018. Nonspecific focus of sclerosis in the left anterior third rib on issimilar to the priors. No new suspicious osseous lesions. This examination was performed in conjunction with a CT of the abdomen,which will be reported separately. IMPRESSION: 1. Two new indeterminate pulmonary nodules measuring 3 mm or less. ChestCT follow-up is recommended. 2. Additional findings, including multiple additional pulmonary nodules,have not significantly changed from 01/19/2023. 3. This examination was performed in conjunction with a CT of theabdomen, which will be reported separately. Diego Umana D.O.BSolitarioA. 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 Given 03/21/2024 8:19 AM CDT 500 Units iohexoL 300 mg iodine/mL solution 1-200 mL (OMNIPAQUE) 1-200 mL, intravenous, Once in imaging, contrast, Starting on Thu03/21/24 at 0742, For 1 dose, Imaging Protocol Orders, Dose per Radiant Medication Guidelines Given 03/21/2024 8:03 AM CDT 140 mL sodium chloride (PF) 0.9 % injection 1-100 mL 1-100 mL, intravenous, Once, On Thu03/21/24 at 0800, For 1 dose, Imaging Protocol Orders, Dose per Radiant Medication Guidelines Given 03/21/2024 8:03 AM CDT 50 mL sodium chloride 0.9 % injection 10-20 mL 10-20 mL, intravenous, During hospitalization, line care, Prior to discharge, Starting on Thu03/21/24 at 0754, For 1 dose, Implanted Vascular Access Device (IVAD) Venous Non-Valved: Flush 10 mL per port/lumen followed by heparin flush prior to discharge. Given 03/21/2024 8:19 AM CDT 10 mL documented in this encounter Additional Health Concerns Assessment Noted Time PHQ-9 Depression Total Score: 5 11/25/19 24 9:48 AM BEEF SKINNER documented as of this encounter Care Teams Vat Cleaner Relationship Specialty Start Date End Date Kayla Rowland APRN, C.N.P. [address] [place] [phone] PCP - General 03/04/24 Roger Sorensen Therapist 02/14/20 documented as of this encounter
--- OUTSIDE RECORDS SUMMARY | 2024-05-25 00:16 | XMS_ITS | Encounter Summary ---
Author Organization [facility] Address [address] [place] [address] Care Team Providers Care Banquet Server Name Role Phone Kayla Rowland APRN, C.N.P. Primary Care Provide r Encounter Details Date Type Department Care Team (Late st Contact Info) Description 03/17/2024 Orders Only Department of Oncology in [place], [place] [address] [place] [phone] Patsy Bowser APRN, C.N.P., M.S. [address] [place] [address] Social History Tobacco Use Types Packs/Day Years Used Date Smoking Tobacco: Former Cigarettes 1 - 08/18/2015 Smokeless Tobacco: Never Alcohol Use Standard Drinks/Week Comments Not Currently 0 (1 standard drink = 0.6 oz pur e alcohol) [facility] Utilities Answer Date Recorded In the past 12 months has [facility] [employer], oil, or water [employer] threatened to shut off services in your [...] often do you attend chur ch or faith services? Never 12/06/2021 Do you [...] Master's degree (e.g., MA, MS, Aba, MEd, DAIRY TECHNICIAN, GAMALIEL) 08/15/2019 Sex and Gender Information Value Date Recorded Sex Assigned at Male 09/09/2023 12:48 PM TITLE ASSISTANT Gender Identity Male 08/15/2019 2:16 PM CDT Sexual Orientation Straight 08/15/2019 2: 16 PM CDT documented as of this encounter Plan of Treatment Upcoming Encounters Date Type Department Care Team (Late st Contact Info) Description 06/01/2024 9:30 AM CDT Clinical Support Division of Colon and Rectal Surgery in [place], [place] [address] [place] [phone] Armida Bullock, JAD, C.N.P., M.S.N. [address] [place] [phone] 06/07/2024 9:20 AM CDT Lab Department of Infusion Therapy in [place], [place] [address] [place] [phone] Mariluz Soler M.D. [address] [place] [phone] 06/07/2024 11:20 AM CDT Office Visit Department of Oncology in [place], [place] [address] [place] [phone] Mariluz Soler M.D. [address] [place] [phone] 06/07/2024 1:00 PM CDT Infusion Department of Oncology in [place], [place] [address] [place] [phone] Mariluz Soler M.D. [address] [place] [phone] 06/17/2024 8:30 AM CDT Appointment Department of Laboratory Medicine and Pathology, [facility] in [place], [place] [address] [place] [phone] Anny Mcneill M.D. [address] [place] [phone] 06/17/2024 9:00 AM CDT Lab Department of Infusion Therapy in [place], [place] [address] [place] [phone] Anny Mcneill M.D. [address] [place] [phone] 06/17/2024 10:45 AM CDT Procedure visit Department of Urology in [place], [place] [address] [place] [phone] Anny Mcneill M.D. [address] [place] [phone] 06/17/2024 1:45 PM CDT Comprehensive Visit Department of Urology in [place], [place] [address] [place] [phone] Ayesha Romero P.A.-C. [address] [place] [phone] 06/17/2024 4:15 PM CDT Comprehensive Visit Department of Urology in [place], [place] [address] [place] [phone] Scotty Tom APRN, UrielNSolitarioP. [address] [place] [address] documented as of this encounter Goals Goal Patient Goal Type Associated Problems Recent Progress Patient-Stated? Author Eat a balanced, healthy diet Diet Worsening( 11:49 AM CDT) Yes Popejoy, Nadia Boone R.N. Note: 02/14/20 - Has one regular meal daily (supper), otherwise not as hungry and snacks on fruit in AM, chips in evening. Will readdress his dietary goals and see if this makes a difference in his mood. Read Managing My Depression General Improving( 11:43 AM CDT) Yes Popejoy, Nadia Boone R.N. Note: P. 46-48 Create a relapse prevention plan. Spend time with my dog again. General On track( 11:43 AM CDT) Yes PopejoyNadia R.N. Have some time to himself regularly. General On track( 11:47 AM CDT) Yes Popejoy, Tammy Mcghee.N. Note: 01/24/20 - More structure to his day. Thankful for this time to boning room worker. Recognizing he needs more personal time. Meet with therapist regularly General On track( 11:43 AM CDT) Yes Popejoy, Nadia Boone R.N. Note: Dr. Pavan Sorensen, with [facility] in [place], [place]. Take your medication every day Lifestyle On track( 020 11:49 AM CDT) No Popejoy, Nadia Boone RSolitarioN. Note: Increased Wellbutrin to 300 mg daily 02/09/20. PHQ-9 Total Score (max 27) < 5 Symptom Management 3(04/06/2024 7:51 PM CDT) No Popejoy, Nadia Boone, R.N. Note: Enrollment PHQ9=18 on [...] Total Score: 5 11/25/19 24 9:48 AM TITLE ASSISTANT documented as of this encounter Care Teams Banquet Server Relationship Specialty Start Date End Date Kayla Rowland APRN, C.N.P. [address] [place] [phone] PCP - General 03/04/24 Roger Sorensen Therapist 02/14/20 documented as of this encounter
--- OUTSIDE RECORDS SUMMARY | 2024-05-25 00:16 | XMS_ITS | Encounter Summary ---
Author Organization [facility] Address [address] [place] [address] Care Team Providers Care Studio Technician Video Operator Name Role Phone Kayla Rowland APRN, C.N.P. Primary Care Provide r Encounter Details Date Type Department Care Team (Late st Contact Info) Description 02/20/2024 Orders Only Department of Oncology in [place], [place] [address] [place] [phone] Patsy Bowser APRN, C.N.P., M.S. [address] [place] [phone] Social History Tobacco Use Types Packs/Day Years Used Date Smoking Tobacco: Former Cigarettes Q uit: 07/19/2015 Smokeless Tobacco: Never Alcohol Use Standard Drinks/Week [...] often do you attend chur ch or mandaen services? Never 12/06/2021 Do you belong to any clubs o r organizations such as baptist groups, unions, fraternal or athletic groups, or [...] Answer Date Recorded PHQ-2 Score 1 11/25/2023 [facility] [...] Master's degree (e.g., MA, MS, Aba, MEd, SENIOR LITIGATION PARALEGAL, GAMALIEL) 08/15/2019 Sex and Gender Information Value Date Recorded Sex Assigned at Male 09/09/2023 12:48 PM REIMBURSEMENT REP Gender Identity Male 08/15/2019 2:16 PM CDT Sexual Orientation Straight 08/15/2019 2: 16 PM CDT documented as of this encounter Plan of Treatment Upcoming Encounters Date Type Department Care Team (Late st Contact Info) Description 06/01/2024 9:30 AM CDT Clinical Support Division of Colon and Rectal Surgery in [place], [place] [address] [place] [phone] Armida Bullock APRN, C.N.P., M.S.N. 200 [place] [phone] 06/07/2024 9:20 AM CDT Lab Department of Infusion Therapy in [place], [place] [address] [place] [phone] Mariluz Soler M.D. [address] [place] [phone] 06/07/2024 11:20 AM CDT Office Visit Department of Oncology in [place], [place] [address] [place] [phone] Mariluz Soler M.D. [address] [place] [phone] 06/07/2024 1:00 PM CDT Infusion Department of Oncology in [place], [place] [address] [place] [phone] Mariluz Soler M.D. [address] [place] [phone] 06/17/2024 8:30 AM CDT Appointment Department of Laboratory Medicine and Pathology, [facility], in [place], [place] [address] [place] [phone] Anny Mcneill M.D. [address] [place] [phone] 06/17/2024 9:00 AM CDT Lab Department of Infusion Therapy in [place], [place] [address] [place] [phone] Anny Mcneill M.D. [address] [place] [phone] 06/17/2024 10:45 AM CDT Procedure visit Department of Urology in [place], [place] [address] [place] [phone] Anny Mcneill M.D. [address] [place] [phone] 06/17/2024 1:45 PM CDT Comprehensive Visit Department of Urology in [place], [place] [address] [place] [phone] Ayesha Romero P.A.-C. [address] [place] [phone] 06/17/2024 4:15 PM CDT Comprehensive Visit Department of Urology in [place], [place] [address] [place] [phone] Scotty Tom APRN, C.N.P. [address] [place] [phone] documented as of this encounter Goals Goal Patient Goal Type Associated Problems Recent Progress Patient-Stated? Author Eat a balanced, healthy diet Diet Worsening( 11:49 AM CDT) Yes [place], Nadia Boone R.N. Note: 02/14/20 - Has one regular meal daily (supper), otherwise not as hungry and snacks on fruit in AM, chips in evening. Will readdress his dietary goals and see if this makes a difference in his mood. Read Managing My Depression General Improving( 11:43 AM CDT) Yes KoliganekNadia R.N. Note: P. 46-48 Create a relapse prevention plan. Spend time with my dog again. General On track( 11:43 AM CDT) Yes Nadia Nickerson R.N. Have some time to himself regularly. General On track( 11:47 AM CDT) Yes Nadia Nickerson R.N. Note: 01/24/20 - More structure to his day. Thankful for this time to director of casework services. Recognizing he needs more personal time. Meet with therapist regularly General On track( 11:43 AM CDT) Yes KoliganekNadia R.N. Note: Dr. Pavan Sorensen, with [facility] in [place], [place]. Take your medication every [...] Date Last Indicated Resolved Time Protective Environment 09/25/2023 09/25/202303/14 5:35 AM CDT Assessment Noted Time PHQ-9 Depression Total Score: 5 11/25/19 24 9:48 AM REIMBURSEMENT REP documented as of this encounter Care Teams Studio Technician Video Operator Relationship Specialty Start Date End Date Kayla Rowland APRN, C.N.P. [address] [place] [phone] PCP - General 03/04/24 Roger Sorensen Therapist 02/14/20 documented as of this encounter
--- OUTSIDE RECORDS SUMMARY | 2024-05-25 00:16 | XMS_ITS | Encounter Summary ---
Author Organization [facility] Address [address] [place] [address] Care Team Providers Care Applied Statistician Name Role Phone Kayla Rowland APRN C.N.P. 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 Never 12/06/2021 Do you belong to [...] Answer Date Recorded PHQ-2 Score 1 11/25/2023 [facility] [...] place to sleep or slept in a usp (including now)? No 12/06/2021 Depression Answer Date [...] Master's degree (e.g., MA, MS, Aba, MEd, ADVENTURE THERAPIST, GAMALIEL) 08/15/2019 Sex and Gender Information Value Date Recorded Sex Assigned at Male 09/09/2023 12:48 PM SUPERVISOR DRY CELL ASSEMBLY Gender Identity Male 08/15/2019 2:16 PM CDT Sexual Orientation Straight 08/15/2019 2: 16 PM CDT documented as of this encounter Last Filed Vital Signs Vital Sign Reading Time Taken Comments Blood Pressure 128/95 03/16/2024 3:10 PM CDT Pulse 75 03/16/2024 3:10 PM CDT Temperature 36.9 ??C (98.4 ??F) 03/16/2024 2:40 PM CD T Respiratory Rate 20 03/16/2024 3:05 PM CDT Oxygen Saturation 99% 03/16/2024 3:05 PM CDT Inhaled Oxygen Concentration - - Weight 104 kg (229 lb) 03/16/2024 1:44 PM CDT Height 170.2 cm (5' 7) 03/16/2024 1:44 PM CDT Body Mass Index 35.87 03/16/2024 1:44 PM CDT documented in this encounter Discharge Instructions * Discharge Instr - Other Orders* Sherley Collier R.N., C.M.S.R.N. - 03/16/2024 2:43 PM CDT No dietary or medication restrictions after today's procedure. documented in this encounter Medications at Time [...] for muscle spasms. 35 tablet 04/03/2024 04/06/2024 mirtazapine (REMERON) 45 mg tablet Take 45 mg by mouth at bedtime. 11/24/2023 03/21/2024 OLANZapine (ZyPREXA) 5 mg tabletIndications:Ma lignant Neoplasm [...] Pain Exception. 40 tablet 04/03/2024 05/08/2024 polyethylene glycol-electrolytes (GoLYTELY) 236-22.74-6.74 -5.86 gram solution Drink 1st portion of prep at 6 PM the evening before. 2nd portion must be started 3 hours before and finished 2 hours prior to report time 4000 mL 02/11/2024 03/17/2024 prochlorperazine (COMPAZINE) 10 mg tabletIndications:Ma lignant Neoplasm [...] Division of Colon and Rectal Surgery in [place], [place] [address] [place] [phone] Armida Bullock APRN, C.N.P., M.S.N. [address] [place] [phone] 06/07/2024 9:20 AM CDT Lab Department of Infusion Therapy in [place], [place] [address] [place] [phone] Mariluz Soler M.D. [address] [place] [phone] 06/07/2024 11:20 AM CDT Office Visit Department of Oncology in [place], [place] [address] [place] [phone] Mariluz Soler M.D. [address] [place] [phone] 06/07/2024 1:00 PM CDT Infusion Department of Oncology in [place], [place] [address] [place] [phone] Mariluz Soler M.D. [address] [place] [phone] 06/17/2024 8:30 AM CDT Appointment Department of Laboratory Medicine and Pathology, [facility], in [place], [place] [address] [place] [phone] Anny Mcneill M.D. [address] [place] [phone] 06/17/2024 9:00 AM CDT Lab Department of Infusion Therapy in [place], [place] [address] [place] [phone] Anny Mcneill M.D. [address] [place] [phone] 06/17/2024 10:45 AM CDT Procedure visit Department of Urology in [place], [place] [address] [place] [phone] Anny Mcneill M.D. [address] [place] [phone] 06/17/2024 1:45 PM CDT Comprehensive Visit Department of Urology in [place], [place] [address] [place] [phone] Ayesha Romero P.A.-C. [address] [place] [phone] 06/17/2024 4:15 PM CDT Comprehensive Visit Department of Urology in [place], [place] [address] [place] [phone] Scotty Tom, JAD, CSolitarioN.P. [address] [place] [phone] documented as of this encounter Goals Goal Patient Goal Type Associated Problems Recent Progress Patient-Stated? Author Eat a balanced, healthy diet Diet Worsening( 11:49 AM CDT) Yes JagualNadia R.N. Note: 02/14/20 - Has one regular meal daily (supper), otherwise not as hungry and snacks on fruit in AM, chips in evening. Will readdress his dietary goals and see if this makes a difference in his mood. Read Managing My Depression General Improving( 11:43 AM CDT) Yes JagualNadia R.N. Note: P. 46-48 Create a relapse prevention plan. Spend time with my dog again. General On track( 020 11:43 AM CDT) Yes JagualNadia R.N. Have some time to himself regularly. General On track( 11:47 AM CDT) Yes Nadia Nickerson R.N. Note: 01/24/20 - More structure to his day. Thankful for this time to home health care social worker. Recognizing he needs more personal time. Meet with therapist regularly General On track( 11:43 AM CDT) Yes Jagual, Nadia Boone R.N. Note: Dr. Pavan Sorensen, with [facility] in [place], [place]. 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 LAB SURG PATH ORDER DEENA [facility] [address] [place] [address], [facility] [address] [place] [address] * Colonoscopy (03/16/2024 1:51 PM CDT) 03/16/2024 1:51 PM CDT [facility] - 03/16/2024 2:48 PM CDT [...] normal on direct and retroflexion views. Narrative [employer] [employer] - 03/16/2024 2:48 PM CDT Esteban [...] bowel preparation was evaluated using the BBPS ([place] ? Bowel Preparation Scale) with scores of: [...] APRN, C.N.P., M.S. 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 Use 50 mL bag then discard. heparin flush 500-1,000 Units 500-1,000 Units, intra-catheter, During hospitalization, line care, Prior to discharge, Starting on Thu03/16/24 at 1433, For 1 dose, Implanted Vascular Access Device (IVAD) Venous Non-Valved: flush 5 mL (500 units) per port/lumen following saline flush prior to discharge. Given 03/16/2024 3:11 PM CDT 500 Units NaCl 0.9% infusion 1-999 mL/hr, intravenous, As needed, Between Consecutive Piggyback Medications, Starting on Thu03/16/24 at 1433, Infuse at the same rate as the piggyback until tubing clears or up to a volume of 20 mL. Select for IV medication administration when no maintenance IV available or when IV medications are not compatible with maintenance fluid. NaCl 0.9% infusion 1-999 mL/hr, intravenous, As needed, Post Medications (Hazardous/Low Fluid Volume), Starting on Thu03/16/24 at 1433, Infuse at the same rate as the medication until tubing cleared of medication, then discard. sodium chloride 0.9 % injection 10-20 mL 10-20 mL, intravenous, During hospitalization, line care, Prior to discharge, Starting on Thu03/16/24 at 1433, For 1 dose, Implanted Vascular Access Device (IVAD) Venous Non-Valved: Flush 10 mL per port/lumen followed by heparin flush prior to discharge. Given 03/16/2024 3:10 PM CDT 10 mL documented in this encounter Active and Recently Administered Medications Times are shown in CDT. Continuous Medication Order 03/14/2024 03/15/2024 03/16/2024 Lactated Ringer's 100 mL/hr, intravenous, Continuous, Starting on Thu03/16/24 at 1445, PACU & Post-Op 1445 (Due) PRN Medication Order 03/14/2024 03/15/2024 03/16/2024 D5W infusion 1-999 mL/hr, intravenous, As needed, Medications Incompatible with 0.9% NaCL, Starting on Thu03/16/24 at 1433, Infuse at the same rate as the piggyback until tubing clears or up to a volume of 20 mL pre and post infusion for medications incompatible with 0.9% NaCL. Use 50 mL bag then discard. heparin flush 500-1,000 Units (COMPLETED) 500-1,000 Units, intra-catheter, During hospitalization, line care, Prior to discharge, Starting on Thu03/16/24 at 1433, For 1 dose, Implanted Vascular Access Device (IVAD) Venous Non-Valved: flush 5 mL (500 units) per port/lumen following saline flush prior to discharge. 1511 (Given - Provid er: Sherley Collier R.N., C.M.S.R.N.) NaCl 0.9% infusion 1-999 mL/hr, intravenous, As needed, Between Consecutive Piggyback Medications, Starting on Thu03/16/24 at 1433, Infuse at the same rate as the piggyback until tubing clears or up to a volume of 20 mL. Select for IV medication administration when no maintenance IV available or when IV medications are not compatible with maintenance fluid. NaCl 0.9% infusion 1-999 mL/hr, intravenous, As needed, Post Medications (Hazardous/Low Fluid Volume), Starting on Thu03/16/24 at 1433, Infuse at the same rate as the medication until tubing cleared of medication, then discard. sodium chloride 0.9 % injection 10-20 mL (COMPLETED) 10-20 mL, intravenous, During hospitalization, line care, Prior to discharge, Starting on Thu03/16/24 at 1433, For 1 dose, Implanted Vascular Access Device (IVAD) Venous Non-Valved: Flush 10 mL per port/lumen followed by heparin flush prior to discharge. 1510 (Given - Provid er: Sherley Collier R.N., C.Madhav.S.R.N.) documented in this encounter Additional Health Concerns Assessment Noted Time PHQ-9 Depression Total Score: 5 11/25/19 24 9:48 AM SUPERVISOR DRY CELL ASSEMBLY documented as of this encounter Care Teams Applied Statistician Relationship Specialty Start Date End Date Kayla Rowland APRN, C.N.P. [address] [place] [phone] PCP - General 03/04/24 Roger Sorensen Therapist 02/14/20 documented as of this encounter
--- OUTSIDE RECORDS SUMMARY | 2024-05-25 00:16 | XMS_ITS | Encounter Summary ---
Author Organization [facility] Address [address] [place] [address] Care Team Providers Care Rail Detector Car Operator Name Role Phone Kayla Rowland APRN, C.N.P. Primary Care Provide r Encounter Details Date Type Department Care Team (Late st Contact Info) Description 03/16/2024 Orders Only Department of Oncology in [place], [place] [address] [place] [phone] Pasty Bowser APRN, C.N.P., M.S. [address] [place] [phone] Social History Tobacco Use Types Packs/Day Years Used Date Smoking Tobacco: Former Cigarettes 1 - 08/18/2015 Smokeless Tobacco: Never Alcohol Use Standard Drinks/Week Comments Not Currently 0 (1 standard drink = 0.6 oz pur e alcohol) [facility] Utilities Answer Date Recorded In the past 12 months has [facility] Inflection, oil, or water Social Recruiting threatened to shut off services in your [...] often do you attend chur ch or spiritism services? 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 [address] [place] [phone] 06/07/2024 9:20 AM CDT Lab Department of Infusion Therapy in [place], [place] [address] [place] [phone] Mariluz Soler M.D. [address] [place] [phone] 06/07/2024 11:20 AM CDT Office Visit Department of Oncology in [place], [place] [address] [place] [phone] Mariluz Soler M.D. [address] [place] [phone] 06/07/2024 1:00 PM CDT Infusion Department of Oncology in [place], [place] [address] [place] [phone] Mariluz Soler M.D. [address] [place] [phone] 06/17/2024 8:30 AM CDT Appointment Department of Laboratory Medicine and Pathology, [facility] in [place], [place] [address] [place] [phone] Anny Mcneill M.D. [address] [place] [phone] 06/17/2024 9:00 AM CDT Lab Department of Infusion Therapy in [place], [place] [address] [place] [phone] Anny Mcneill M.D. [address] [place] [phone] 06/17/2024 10:45 AM CDT Procedure visit Department of Urology in [place], [place] [address] [place] [phone] Anny Mcneill M.D. [address] [place] [phone] 06/17/2024 1:45 PM CDT Comprehensive Visit Department of Urology in [place], [place] [address] [place] [phone] Ayesha Romero P.A.-C. [address] [place] [phone] 06/17/2024 4:15 PM CDT Comprehensive Visit Department of Urology in [place], [place] [address] [place] [phone] Scotty Tom APRN, UrielNSolitarioP. [address] [place] [phone] documented as of this encounter Goals Goal Patient Goal Type Associated Problems Recent Progress Patient-Stated? Author Eat a balanced, healthy diet Diet Worsening( 11:49 AM CDT) Yes Hawkins, Nadia Boone R.N. Note: 02/14/20 - Has one regular meal daily (supper), otherwise not as hungry and snacks on fruit in AM, chips in evening. Will readdress his dietary goals and see if this makes a difference in his mood. Read Managing My Depression General Improving( 11:43 AM CDT) Yes Hawkins, Nadia Boone R.N. Note: P. 46-48 Create a relapse prevention plan. Spend time with my dog again. General On track( 11:43 AM CDT) Yes HawkinsNadia R.N. Have some time to himself regularly. General On track( 11:47 AM CDT) Yes Hawkins, Tammy Mcghee.N. Note: 01/24/20 - More structure to his day. 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 Recognizing he needs more personal time. Meet with therapist regularly General On track( 11:43 AM CDT) Yes Hawkins, Nadia Boone R.N. Note: Dr. Pavan Sorensen, with [facility] in [place], [place]. Take your medication every day Lifestyle On track( 020 11:49 AM CDT) No Hawkins, Nadia Boone RSolitarioN. Note: Increased Wellbutrin to 300 mg daily 02/09/20. PHQ-9 Total Score (max 27) < 5 Symptom Management 3(04/06/2024 7:51 PM CDT) No Hawkins, Nadia Boone, R.N. Note: Enrollment PHQ9=18 on [...] Total Score: 5 11/25/19 24 9:48 AM MARRIAGE AND FAMILY TEACHER documented as of this encounter Care Teams Rail Detector Car Operator Relationship Specialty Start Date End Date Kayla Rowland APRN, C.N.P. [address] [place] [phone] PCP - General 03/04/24 Roger Sorensen Therapist 02/14/20 documented as of this encounter
--- OUTSIDE RECORDS SUMMARY | 2024-05-25 00:16 | XMS_ITS | Encounter Summary ---
Author Organization [facility] Address [address] [place] [address] Care Team Providers Care Intel Recruiter Name Role Phone Kayla Rowland APRN, C.N.P. 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) Procedures COLONOSCOPY Referral ID Status Reason Start Date Expiration Date Visits Re quested Visits Authorized [id number] 1 1 Encounter Details Date Type Department Care Team (Latest Contact Info) Description 03/16/2024 1:57 PM CDT Anesthesia Event Division of Gastroenterology in [place], [place] [address] [place] [phone] Kayla Cartwright, SURGICAL CONSULTANT, RN TRAVELING, DNAP [address] [place] [phone] Anesthesia Record Procedure Summary Procedure Name Responsible Anesthesiologist Anesthesia Start Time Anesthesia Stop Time COLONOSCOPY Kayla Cartwright, AP RN, RN TRAVELING, DNAP 03/16/24 1357 03/16/24 1441 Events Date Time Event Comment 03/16/2024 1357 An Start Machine/Equipme nt Checked Infection Precautions Followed Procedure/Site Verified NPO Status Verified Supine Standard ASA Monitors Applied 1407 Quick Note Port access in procedure Room 1410 Turnover to Proceduralist 1412 Proc Start 1430 Proc Fin 1432 Turnover to ANE Staff 1437 an stop data 1441 An End I completed my handoff to the receiving staff during which we 1. Identified the patient 2. Identified the responsible provider 3. Reviewed the pertinent medical history 4. Discussed the surgical course 5. Reviewed intra-op anesthesia management and issues during anesthesia 6. Set expectations for post-procedure period 7. Allowed opportunity for questions and acknowledgement of understanding. Meds Name Total lidocaine 2% (mg) injection 80 mg ondansetron PF 4 mg/2 mL injection 4 mg propofol 10 mg/mL injection 70 mg propofol 10 mg/mL infusion 462.36 mg Lactated Ringers Free Drip 400 mL * Agents No agents on file. [...] dressing; Dr. Butcher 09/22/23 1222 by Delaney Cheng, R.N. Wound 09/11/23; 1210; N; 09/11/23; Puncture; Abdomen; Lateral, Right; Liver biopsy site; 03/29/24; Wound healed 09/11/23 1210 by Gómez Murillo M.S.N., R.N. 03/29/24 0000 by Naye Perez RSolitarioN. documented in this encounter Social History Tobacco [...] often do you attend chur ch or mormonism services? 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 SPECIALIST Gender Identity Male 08/15/2019 2:16 PM CDT Sexual Orientation Straight 08/15/2019 2: 16 PM CDT documented as of this encounter OR Notes * Anesthesia Postprocedure Evaluation - Kayla Cartwright, SURGICAL CONSULTANT, RN TRAVELING, DNAP - 03/16/2024 2:42 PM CDT Patient: Heriberto Snowden Procedure Summary Date: 03/16/24 Room / Location: Division of Gastroenterology in [place], [place] Anesthesia Start: 1357 Anesthesia Stop: 1441 Procedure: COLONOSCOPY Diagnosis: 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 Anesthesia Post Evaluation Patient Disposition: dismissal Cardiovascular status: hemodynamics (HR & BP) acceptable Respiratory status: patent airway with spontaneous effort Temperature: normothermic Oxygen requirements: room air Level of consciousness: awake Pain score: pain adequately controlled and/or at baseline Post Op nausea/vomiting: none Hydration status: euvolemic * Anesthesia Preprocedure Evaluation - Sp Haynes APRN, CRNA - 03/16/2024 1:54 PM CDT Preprocedure Anesthesia & H&P Assessment Procedure Summary Date/Time: 03/16/24 1345 Scheduled providers: Kayla Cartwright APRN, CRNA, DNAP Procedure: COLONOSCOPY Diagnosis: 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 Present illness and pre-op diagnosis were confirmed. The planned surgery / procedure was verified with the patient / legal guardian. 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) OBJECTIVE PHYSICAL EXAMINATION Airway (HEENT) Mallampati: II TM Distance: >3 FB Neck ROM: Full Mouth Opening: >3 cm Upper Lip Bite Test Class: I Cardiovascular Rhythm: Regular Rate: Normal Cardiovascular Assessment: cardiovascular normal Functional Capacity: >4 METS Pulmonary Pulmonary Assessment: Clear General / Constitutional Constitutional Assessment: Obese General State of Health:: healthy appearing and calm Neurological Neurologic Assessment: alert and alert and oriented x 3 Dental Dental Assessment: dentition intact ASSESSMENT / PLAN ANESTHESIA PLAN ASA: 2 Anesthesia Plan: MAC Propofol Zofran Fentanyl+/- Patient seen and allergies reviewed, anesthesia plan and risks discussed directly with patient /legal guardian or through an asl interpreter. Risks/Benefits/Alternatives of Blood transfusion discussed with patient [...] Division of Colon and Rectal Surgery in [address] [phone] Armida Bullock APRN, C.N.P., M.S.N. [address] [place] [phone] 06/07/2024 9:20 AM CDT Lab Department of Infusion Therapy in [place], [place] [address] [place] [phone] Mariluz Soler M.D. [address] [place] [phone] 06/07/2024 11:20 AM CDT Office Visit Department of Oncology in [place], [place] [address] [place] [phone] Mariluz Soler M.D. [address] [place] [phone] 06/07/2024 1:00 PM CDT Infusion Department of Oncology in [place], [place] [address] [place] [phone] Mariluz Soler M.D. [address] [place] [phone] 06/17/2024 8:30 AM CDT Appointment Department of Laboratory Medicine and Pathology, [facility] in [place], [place] [address] [place] [phone] Anny Mcneill M.D. [address] [place] [phone] 06/17/2024 9:00 AM CDT Lab Department of Infusion Therapy in [place], [place] [address] [place] [phone] Anny Mcneill M.D. [address] [place] [phone] 06/17/2024 10:45 AM CDT Procedure visit Department of Urology in [place], [place] [address] [place] [phone] Anny Mcneill M.D. [address] [place] [phone] 06/17/2024 1:45 PM CDT Comprehensive Visit Department of Urology in [place], [place] [address] [place] [phone] Ayesha Romero, PVirgil.-Uriel [address] [place] [phone] 06/17/2024 4:15 PM CDT Comprehensive Visit Department of Urology in [place], [place] [address] [place] [phone] Scotty Tom APRN, UrielN.P. [address] [place] [phone] documented as of this encounter Goals Goal Patient Goal Type Associated Problems Recent Progress Patient-Stated? Author Eat a balanced, healthy diet Diet Worsening( 11:49 AM CDT) Yes Morada, Nadia Boone R.N. Note: 02/14/20 - Has [...] General On track( 11:47 AM CDT) Yes Morada, Nadia Boone R.N. Note: 01/24/20 - More structure to his day. 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 Recognizing he needs more personal time. Meet with therapist regularly General On track( 11:43 AM CDT) Yes Morada, Nadia Boone R.N. Note: Dr. Pavan Sorensen, with [email or web address] in [place], [place]. Take your medication every day Lifestyle [...] MAR Action Action Date Dose Rate Site Lactated Ringer's intravenous, Continuous Infusion: Per Instructions PRN, Starting on Thu03/16/24 at 1357, Anesthesia Intra-op New Bag 03/16/2024 1:57 PM CDT lidocaine (PF) (cardiac) injection intravenous, As needed, Starting on Thu03/16/24 at 1410, Anesthesia Intra-op Given 03/16/2024 2:10 PM CDT 80 mg ondansetron (PF) injection (ZOFRAN) intravenous, As needed, Starting on Thu03/16/24 at 1400, Anesthesia Intra-op Given 03/16/2024 2:00 PM CDT 4 mg propofol 10 mg/mL infusion (DIPRIVAN) intravenous, Continuous Infusion: Per Instructions PRN, Starting on Thu03/16/24 at 1408, Anesthesia Intra-op Rate/Dose Change 03/16/2024 2:28 PM CDT 150 mcg/kg/min 93.51 mL/hr New Bag 03/16/2024 2:08 PM CDT 125 mcg/kg/min 77.925 mL /hr propofoL injection (DIPRIVAN) intravenous, As needed, Starting on Thu03/16/24 at 1402, Anesthesia Intra-op Given 03/16/2024 2:28 PM CDT 20 mg Given 03/16/2024 2:09 PM CDT 50 mg documented in this encounter Additional Health Concerns Assessment Noted Time PHQ-9 Depression Total Score: 5 11/25/19 24 9:48 AM BRAND MARKETING SPECIALIST documented as of this encounter Care Teams Intel Recruiter Relationship Specialty Start Date End Date Kayla Rowland APRN, C.N.P. [address] [place] [phone] PCP - General 03/04/24 Roger Sorensen Therapist 02/14/20 documented as of this encounter
--- OUTSIDE RECORDS SUMMARY | 2024-05-25 00:16 | XMS_ITS | Encounter Summary ---
Author Organization [facility] Address [address] [place] [address] Care Team Providers Care Wood Type Finisher Name Role Phone Kayla Rowland APRN, C.N.P. Primary Care Provide r Reason for Visit * Reason Onset Date Comments Pre-visit Intake 03/17/2024 Encounter Details Date Type Department Care Team (Latest Contact Info) Description 03/17/2024 3:15 PM CDT Clinical Communication Virtual Review in [place], [place] 200 [place] [phone] Pre-visit Intake Social History Tobacco Use Types [...] Date Recorded PHQ-2 Score 1 11/25/2023 [facility] - Occupational Stress Questionnaire Answer Date [...] Master's degree (e.g., MA, MS, Aba, MEd, STEEL ROD BUSTER, GAMALIEL) 08/15/2019 Sex and Gender Information Value Date Recorded Sex Assigned at Male 09/09/2023 12:48 PM CHECKERER HAND Gender Identity Male 08/15/2019 2:16 PM CDT Sexual Orientation Straight 08/15/2019 2: 16 PM CDT documented as of this encounter Miscellaneous Notes * Telephone Encounter - Lesa Jansen - 03/17/2024 3:20 PM CDT KVNG done 03/17 DGC documented in this encounter Plan of Treatment Upcoming Encounters Date Type Department Care Team (Late st Contact Info) Description 06/01/2024 9:30 AM CDT Clinical Support Division of Colon and Rectal Surgery in [place], [place] [address] [place] [phone] Armida Bullock, JAD, C.N.P., M.S.N. [address] [place] [phone] 06/07/2024 9:20 AM CDT Lab Department of Infusion Therapy in [place], [place] [address] [place] [phone] Mariluz Soler M.D. [address] [place] [phone] 06/07/2024 11:20 AM CDT Office Visit Department of Oncology in [place], [place] [address] [place] [phone] Mariluz Soler M.D. [address] [place] [phone] 06/07/2024 1:00 PM CDT Infusion Department of Oncology in [place], [place] [address] [place] [phone] Mariluz Soler M.D. [address] [place] [phone] 06/17/2024 8:30 AM CDT Appointment Department of Laboratory Medicine and Pathology, [facility], in [place], [place] [address] [place] [phone] Anny Mcneill M.D. [address] [place] [phone] 06/17/2024 9:00 AM CDT Lab Department of Infusion Therapy in [place], [place] [address] [place] [phone] Anny Mcneill M.D. [address] [place] [phone] 06/17/2024 10:45 AM CDT Procedure visit Department of Urology in [place], [place] [address] [place] [phone] Anny Mcneill M.D. [address] [place], [place] [phone] 06/17/2024 1:45 PM CDT Comprehensive Visit Department of Urology in [place], [place] [address] [place] [phone] Ayesha Romero P.A.-C. [address] [place] [phone] 06/17/2024 4:15 PM CDT Comprehensive Visit Department of Urology in [place], [place] [address] [place] [phone] Scotty Tom APRN, C.NSolitarioP. [address] [place] [phone] documented as of this encounter Goals Goal Patient Goal Type Associated Problems Recent Progress Patient-Stated? Author Eat a balanced, healthy diet Diet Worsening( 11:49 AM CDT) Yes Shorter, Nadia Boone R.N. Note: 02/14/20 - Has one regular meal daily (supper), otherwise not as hungry and snacks on fruit in AM, chips in evening. Will readdress his dietary goals and see if this makes a difference in his mood. Read Managing My Depression General Improving( 11:43 AM CDT) Yes Shorter, Nadia Boone R.N. Note: P. 46-48 Create a relapse prevention plan. Spend time with my dog again. General On track( 11:43 AM CDT) Yes ShorterNadia R.N. Have some time to himself regularly. General On track( 11:47 AM CDT) Yes Shorter, Nadia Boone R.N. Note: 01/24/20 - More structure to his day. 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 Recognizing he needs more personal time. Meet with therapist regularly General On track( 020 11:43 AM CDT) Yes Krishan, Nadia Boone R.N. Note: Dr. Pavan Sorensen, with [facility] in [place], [place]. Take your medication every day Lifestyle On track( 020 11:49 AM CDT) No Krishan, Naida Boone R.N. Note: Increased Wellbutrin to 300 [...] Total Score: 5 11/25/19 24 9:48 AM CHECKERER HAND documented as of this encounter Care Teams Wood Type Finisher Relationship Specialty Start Date End Date Kayla Rowland APRN, C.N.P. [address] [place] [phone] PCP - General 03/04/24 Roger Sorensen Therapist 02/14/20 documented as of this encounter
--- OUTSIDE RECORDS SUMMARY | 2024-05-25 00:16 | XMS_ITS | Encounter Summary ---
Author Organization [facility] Address [address] [place] [address] Care Team Providers Care Crm Technical Lead Name Role Phone Manuel Hoffman M.D., Ph.D. Primary Care Provider Reason for Referral * Outpatient (Routine) Specialty Diagnoses / Procedures Referred By Contac t Referred To Contact Oncology [facility] [address] [place] [phone] [facility] Referral ID Status Reason Start Date Expiration Date Visits Re quested Visits Authorized * Outpatient (Routine) Specialty Diagnoses / Procedures Referred By Contac t Referred To Contact Oncology [facility] [address] [place] [phone] [facility] Referral ID Status Reason Start Date Expiration Date Visits Re quested Visits Authorized * Outpatient (Routine) Specialty Diagnoses / Procedures Referred By Contac t Referred To Contact Oncology [facility] [address] [place] [phone] [facility] Referral ID Status Reason Start Date Expiration Date Visits Re quested Visits Authorized * Outpatient (Routine) Specialty Diagnoses / Procedures Referred By Contac t Referred To Contact Oncology [facility] [address] [place] [phone] [facility] Referral ID Status Reason Start Date Expiration Date Visits Re quested Visits Authorized Encounter Details Date Type Department Care Team (Late st Contact Info) Description 02/11/2024 Orders Only Department of Oncology in [place], [place] [address] [place] [address] Serge Klein Pharm.D., R.Ph., BCOP [address] [place] [address] 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 Never 12/06/2021 Do you belong to any clubs o r organizations such as samaritan groups, unions, fraternal or athletic groups, or [...] Answer Date Recorded PHQ-2 Score 1 11/25/2023 [facility] - Occupational [...] place to sleep or slept in a custodial (including now)? No 12/06/2021 Depression Answer Date [...] Master's degree (e.g., MA, MS, Aba, MEd, WEB APPLICATIONS PROGRAMMER, GAMALIEL) 08/15/2019 Sex and Gender Information Value Date Recorded Sex Assigned at Male 09/09/2023 12:48 PM TOWER EXCAVATOR OPERATOR Gender Identity Male 08/15/2019 2:16 PM CDT Sexual Orientation Straight 08/15/2019 2: 16 PM CDT documented as of this encounter Miscellaneous Notes * Addendum Note - Serge Klein, D., R.Ph., BCOP - 02/11/2024 11:40 AM CDTAddended by: SERGE KLEIN on: 03/01/2024 10:14 AM Modules accepted: Orders documented in this encounter Plan of Treatment Upcoming Encounters Date Type Department Care Team (Late st Contact Info) Description 06/01/2024 9:30 AM CDT Clinical Support Division of Colon and Rectal Surgery in [place], [place] [address] [place] [phone] Armida Bullock APRN, C.N.P., M.S.N. [address] [place] [phone] 06/07/2024 9:20 AM CDT Lab Department of Infusion Therapy in [place], [place] [address] [place] [phone] Mariluz Soler M.D. [address] [place] [phone] 06/07/2024 11:20 AM CDT Office Visit Department of Oncology in [place], [place] [address] [place] [phone] Mariluz Soler M.D. [address] [place] [phone] 06/07/2024 1:00 PM CDT Infusion Department of Oncology in [place], [place] [address] [place] [phone] Mariluz Soler M.D. [address] [place] [phone] 06/17/2024 8:30 AM CDT Appointment Department of Laboratory Medicine and Pathology, [facility] in [place], [place] [address] [place] [phone] Anny Mcneill M.D. [address] [place] [phone] 06/17/2024 9:00 AM CDT Lab Department of Infusion Therapy in [place], [place] [address] [place] [phone] Anny Mcneill M.D. [address] [place] [phone] 06/17/2024 10:45 AM CDT Procedure visit Department of Urology in [place], [place] [address] [place] [phone] Anny Mcneill M.D. [address] [place] [phone] 06/17/2024 1:45 PM CDT Comprehensive Visit Department of Urology in [place], [place] [address] [place] [address] Ayesha Romero, PSolitarioASolitario-C. [address] [place] [phone] 06/17/2024 4:15 PM CDT Comprehensive Visit Department of Urology in [place], [place] [address] [place] [phone] Scotty Tom, JAD, C.N.P. 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) Malignant Neoplasm Of Rectum (HCC) Secondary Malignant Neoplasm Liver (HCC) Expected: 06/07/2024, Expires: 06/07/2025 Scheduled Referrals Name Type Priority Associated Diagnoses Orde r Schedule Oncology office visit (clinic) Outpatient Referral Routine 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) Malignant Neoplasm Of Rectum (HCC) Secondary Malignant Neoplasm Liver (HCC) Expected: 04/26/2024, Expires: 04/26/2025 Oncology office visit (clinic) Outpatient Referral Routine 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) Malignant Neoplasm Of Rectum (HCC) Secondary Malignant Neoplasm Liver (HCC) Expected: 05/11/2024, Expires: 05/11/2025 Oncology office visit (clinic) Outpatient Referral Routine 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 Author Eat a balanced, healthy diet Diet Worsening( 11:49 AM CDT) Yes [place], Michael McgheeNSolitario Note: 02/14/20 - Has one regular meal [...] General On track( 11:47 AM CDT) Yes [place], Nadia Boone R.N. Note: 01/24/20 - More structure to his day. Thankful for this time to manager social work. Recognizing he needs more personal time. Meet with therapist regularly General On track( 11:43 AM CDT) Yes [place], Nadia Boone, R.N. Note: Dr. Pavan Sorensen, with [facility] in [place], [place]. Take your medication every day Lifestyle On track( 11:49 AM CDT) No Nadia Nickerson R.N. Note: Increased Wellbutrin to 300 mg daily 02/09/20. PHQ-9 Total Score (max 27) < 5 Symptom Management 3(04/06/2024 7:51 PM CDT) No [place], Nadia K, R.N. Note: Enrollment PHQ9=18 on 08/16/19 Patient goals at enrollment: 1. I'd like to have my depression be less intense. 2. I'd like to learn some coping strategies. 3. I'd like to learn how to keep my depression from flaring back again documented as of this encounter Results * Bilirubin, Direct (04/26/2024 9:16 AM CDT) Bilirubin, Direct, S <0.2 0.0 - 0.3 mg/dL 04/26/2024 11:04 AM CDT DTL Blood (Blood, Venous) 04/26/2024 9:16 AM CDT 04/26/2024 10:42 AM CDT Mariluz Soler M.D. LAB BLOOD ADD-ON [facility] 200 [place] [address], [facility] 200 [place] [address] * (ABNORMAL) Comprehensive Metabolic Panel (04/26/2024 9:16 AM CDT) Potassium, S 4.2 3.6 - 5.2 mmol/L [...] CDT Mariluz Soler M.D. LAB BLOOD ADD[facility]ON [facility] [address] [place] [address], [facility] [address] [place] [address] * CBC with Differential, Blood (04/26/2024 9:16 [...] CDT Mariluz Soler M.D. 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 PCP - General 07/31/17 03/03/24 Roger Sorensen Therapist 02/14/20 documented as of this encounter
--- OUTSIDE RECORDS SUMMARY | 2024-05-25 00:16 | XMS_ITS | Encounter Summary ---
Author Organization [facility] Address [address] [place] [address] Care Team Providers Care Cleaner Laboratory Equipment Name Role Phone Kayla Rowland APRN, C.N.P. Primary Care Provide r Encounter Details Date Type Department Care Team (Latest Contact Info) Description 03/16/2024 1:55 PM CDT Ancillary Procedure Department of Gastroenterology Social History Tobacco Use Types Packs/Day Years [...] week 12/06/2021 How often do you attend [facility] or zoroastrian services? Never 12/06/2021 Do you belong to [...] Answer Date Recorded PHQ-2 Score 1 11/25/2023 [facility] of Occupat ional Health - [...] Master's degree (e.g., MA, MS, Aba, MEd, SECOND CLASS WELDER, GAMALIEL) 08/15/2019 Sex and Gender Information Value Date Recorded Sex Assigned at Male 09/09/2023 12:48 PM BUFFET RUNNER Gender Identity Male 08/15/2019 2:16 PM CDT Sexual Orientation Straight 08/15/2019 2: 16 PM CDT documented as of this encounter Plan of Treatment Upcoming Encounters Date Type Department Care Team (Late st Contact Info) Description 06/01/2024 9:30 AM CDT Clinical Support Division of Colon and Rectal Surgery in [place], [place] [address] [place] [phone] Armida Bullock APRN, C.N.P., M.S.N. [address] [place] [phone] 06/07/2024 9:20 AM CDT Lab Department of Infusion Therapy in [place], [place] [address] [place] [phone] Mariluz Soler M.D. [address] [place] [phone] 06/07/2024 11:20 AM CDT Office Visit Department of Oncology in [place], [place] [address] [place] [phone] Mariluz Soler M.D. [address] [place] [phone] 06/07/2024 1:00 PM CDT Infusion Department of Oncology in [place], [place] [address] [place] [phone] Mariluz Soler M.D. [address] [place] [phone] 06/17/2024 8:30 AM CDT Appointment Department of Laboratory Medicine and Pathology, [facility] in [place], [place] [address] [place] [phone] Anny Mcneill M.D. [address] [place] [phone] 06/17/2024 9:00 AM CDT Lab Department of Infusion Therapy in [place], [place] [address] [place] [phone] Anny Mcneill M.D. [address] [place] [phone] 06/17/2024 10:45 AM CDT Procedure visit Department of Urology in [place], [place] [address] [place] [phone] Anny Mcneill M.D. [address] [place] [phone] 06/17/2024 1:45 PM CDT Comprehensive Visit Department of Urology in [place], [place] [address] [place] [phone] Ayesha Romero, PSolitarioARogerio [address] [place] [phone] 06/17/2024 4:15 PM CDT Comprehensive Visit Department of Urology in [place], [place] [address] [place] [phone] Scotty Tom APRN CSolitarioNSolitarioP. [address] [place] [phone] documented as of this encounter Goals Goal Patient Goal Type Associated Problems Recent Progress Patient-Stated? Author Eat a balanced, healthy diet Diet Worsening( 11:49 AM CDT) Yes [place], Nadia Boone R.N. Note: 02/14/20 - Has one regular meal daily (supper), otherwise not as hungry and snacks on fruit in AM, chips in evening. Will readdress his dietary goals and see if this makes a difference in his mood. Read Managing My Depression General Improving( 11:43 AM CDT) Yes [place], Nadia Boone R.N. Note: P. 46-48 Create a relapse prevention plan. Spend time with my dog again. General On track( 11:43 AM CDT) Yes Nadia Nickerson R.N. Have some time to himself regularly. General On track( 11:47 AM CDT) Yes [place], Tammy Mcghee.N. Note: 01/24/20 - More structure to his day. 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 Recognizing he needs more personal time. Meet with therapist regularly General On track( 11:43 AM CDT) Yes [place], Nadia Boone R.N. Note: Dr. Pavan Sorensen, with [facility] in [place], [place]. Take your medication every day Lifestyle On track( 11:49 AM CDT) No [place], Nadia K, R.N. Note: Increased Wellbutrin to 300 mg daily 02/09/20. PHQ-9 Total Score (max 27) < 5 Symptom Management 3(04/06/2024 7:51 PM CDT) No [place], Nadia Boone RSolitarioN. Note: Enrollment PHQ9=18 on 08/16/19 Patient goals at enrollment: 1. I'd like to have my depression be less intense. 2. I'd like to learn some coping strategies. 3. I'd like to learn how to keep my depression from flaring back again documented as of this encounter Procedures Procedure Name Priority Date/Time Associated Diagnosis Comments GASTROENTEROLOGY IMAGE EXAM Routine 03/16/2024 1:55 PM CDT documented in this encounter Results * Colonoscopy-Gastroenterology Image Exam (03/16/2024 1:55 PM [...] Total Score: 5 11/25/19 24 9:48 AM BUFFET RUNNER documented as of this encounter Care Teams Cleaner Laboratory Equipment Relationship Specialty Start Date End Date Kayla Rowland APRN, C.N.P. [address] [place] [phone] PCP - General 03/04/24 Roger Sorensen Therapist 02/14/20 documented as of this encounter
--- OUTSIDE RECORDS SUMMARY | 2024-05-25 00:17 | XMS_ITS | Encounter Summary ---
Author Organization [facility] Address [address] [place] [address] Care Team Providers Care Information Operator Name Role Phone Manuel Hoffman M.D., Ph.D. Primary Care Provider Encounter Details Date Type Department Care Team (Late st Contact Info) Description 02/11/2024 Orders Only Department of Oncology in [place], [place] [address] [place] [phone] Patsy Bowser, JAD, C.N.P., M.S. [address] [place] [phone] Social History Tobacco Use Types Packs/Day Years [...] often do you attend chur ch or caodaism services? Never 12/06/2021 Do you belong to [...] Master's degree (e.g., MA, MS, Aba, MEd, HEADER DOCK, GAMALIEL) 08/15/2019 Sex and Gender Information Value Date Recorded Sex Assigned at Male 09/09/2023 12:48 PM [employer] Gender Identity Male 08/15/2019 2:16 PM CDT Sexual Orientation Straight 08/15/2019 2: 16 PM CDT documented as of this encounter Plan of Treatment Upcoming Encounters Date Type Department Care Team (Late st Contact Info) Description 06/01/2024 9:30 AM CDT Clinical Support Division of Colon and Rectal Surgery in [place], [place] 200 [place] [phone] Armida Bullock APRN, C.N.P., M.S.N. 200 [place] [phone] 06/07/2024 9:20 AM CDT Lab Department of Infusion Therapy in [place], [place] [address] [place] [phone] Mariluz Soler M.D. [address] [place] [phone] 06/07/2024 11:20 AM CDT Office Visit Department of Oncology in [place], [place] [address] [place] [phone] Mariluz Soler M.D. [address] [place] [phone] 06/07/2024 1:00 PM CDT Infusion Department of Oncology in [place], [place] [address] [place] [phone] Mariluz Soler M.D. [address] [place] [phone] 06/17/2024 8:30 AM CDT Appointment Department of Laboratory Medicine and Pathology, [facility], in [place], [place] [address] [place] [phone] Anny Mcneill M.D. [address] [place] [phone] 06/17/2024 9:00 AM CDT Lab Department of Infusion Therapy in [place], [place] [address] [place] [phone] Anny Mcneill M.D. [address] [place] [phone] 06/17/2024 10:45 AM CDT Procedure visit Department of Urology in [place], [place] [address] [place] [phone] Anny Mcneill M.D. [address] [place] [phone] 06/17/2024 1:45 PM CDT Comprehensive Visit Department of Urology in [place], [place] [address] [place] [phone] Ayesha Romero P.A.-C. [address] [place] [phone] 06/17/2024 4:15 PM CDT Comprehensive Visit Department of Urology in [place], [place] [address] [place] [phone] Scotty Tom APRN, C.N.P. [address] [place] [phone] documented as of this encounter Goals Goal Patient Goal Type Associated Problems Recent Progress Patient-Stated? Author Eat a balanced, healthy diet Diet Worsening( 11:49 AM CDT) Yes [place], Nadia Boone R.N. Note: 02/14/20 - Has one regular meal daily (supper), otherwise not as hungry and snacks on fruit in AM, chips in evening. Will readdress his dietary goals and see if this makes a difference in his mood. Read Managing My Depression General Improving( 11:43 AM CDT) Yes [place]ia R.N. Note: P. 46-48 Create a relapse prevention plan. Spend time with my dog again. General On track( 11:43 AM CDT) Yes [place] R.N. Have some time to himself regularly. General On track( 11:47 AM CDT) Yes [place] R.N. Note: 01/24/20 - More structure to his day. 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 Recognizing he needs more personal time. Meet with therapist regularly General On track( 11:43 AM CDT) Yes [place], Nadia K, R.N. Note: Dr. Pavan Sorensen, with [employer] in [place], [place]. Take your medication every day Lifestyle [...] Total Score: 5 11/25/19 24 9:48 AM MOLDER LABELS documented as of this encounter Care Teams Information Operator Relationship Specialty Start Date End Date Manuel Hoffman M.D., Ph.D. PCP - General 07/31/17 03/03/24 Roger Sorensen Therapist 02/14/20 documented as of this encounter
--- OUTSIDE RECORDS SUMMARY | 2024-05-25 00:17 | XMS_ITS | Encounter Summary ---
Author Organization [facility] Address [address] [place] [address] Care Team Providers Care Excellence Coach Name Role Phone Manuel Hoffman M.D., Ph.D. Primary Care Provider Encounter Details Date Type Department Care Team (Late st Contact Info) Description 01/20/2024 Orders Only Department of Oncology in [place], [place] [address] [place] [phone] Patsy Bowser, JAD, C.N.P., M.S. [address] [place] [address] Social History Tobacco Use Types Packs/Day Years [...] often do you attend chur ch or yazidi services? Never 12/06/2021 Do you belong to any clubs o r organizations such as yazidism groups, unions, fraternal or athletic groups, or [...] Answer Date Recorded PHQ-2 Score 1 11/25/2023 [facility] Occupat ional Health [...] degree (e.g., MA, MS, Aba, MEd, DIRECTOR MEDICAID, GAMALIEL) 08/15/2019 Sex and Gender Information Value Date Recorded Sex Assigned at Male 09/09/2023 12:48 PM MATERIAL CONTROL MANAGER Gender Identity Male 08/15/2019 2:16 PM CDT Sexual Orientation Straight 08/15/2019 2: 16 PM CDT documented as of this encounter Plan of Treatment Upcoming Encounters Date Type Department Care Team (Late st Contact Info) Description 06/01/2024 9:30 AM CDT Clinical Support Division of Colon and Rectal Surgery in [place], [place] 200 [place] [phone] Armida Bullock APRN, C.N.P., M.S.N. 200 [place] [phone] 06/07/2024 9:20 AM CDT Lab Department of Infusion Therapy in [place], [place] [address] [place] [phone] Mariluz Soler M.D. [address] [place] [phone] 06/07/2024 11:20 AM CDT Office Visit Department of Oncology in [place], [place] [address] [place] [phone] Mariluz Soler M.D. [address] [place] [phone] 06/07/2024 1:00 PM CDT Infusion Department of Oncology in [place], [place] [address] [place] [phone] Mariluz Soler M.D. [address] [place] [phone] 06/17/2024 8:30 AM CDT Appointment Department of Laboratory Medicine and Pathology, [facility], in [place], [place] [address] [place] [phone] Anny Mcneill M.D. [address] [place] [phone] 06/17/2024 9:00 AM CDT Lab Department of Infusion Therapy in [place], [place] [address] [place] [phone] Anny Mcneill M.D. [address] [place] [phone] 06/17/2024 10:45 AM CDT Procedure visit Department of Urology in [place], [place] [address] [place] [phone] Anny Mcneill M.D. [address] [place] [phone] 06/17/2024 1:45 PM CDT Comprehensive Visit Department of Urology in [place], [place] [address] [place] [phone] Ayesha Romero P.A.-C. [address] [place] [phone] 06/17/2024 4:15 PM CDT Comprehensive Visit Department of Urology in [place], [place] [address] [place] [phone] Scotty Tom APRN, C.N.P. [address] [place] [phone] documented as of this encounter Goals Goal Patient Goal Type Associated Problems Recent Progress Patient-Stated? Author Eat a balanced, healthy diet Diet Worsening( 11:49 AM CDT) Yes [place], Nadia Boone R.N. Note: 02/14/20 - Has one regular meal daily (supper), otherwise not as hungry and snacks on fruit in AM, chips in evening. Will readdress his dietary goals and see if this makes a difference in his mood. Read Managing My Depression General Improving( 11:43 AM CDT) Yes [place] R.N. Note: P. 46-48 Create a relapse prevention plan. Spend time with my dog again. General On track( 11:43 AM CDT) Yes [place] R.N. Have some time to himself regularly. General On track( 11:47 AM CDT) Yes [place] R.N. Note: 01/24/20 - More structure to his day. 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 Recognizing he needs more personal time. Meet with therapist regularly General On track( 11:43 AM CDT) Yes [place], Nadia K, R.N. Note: Dr. Pavan Sorensen, with [facility] in [place], [place]. Take your medication every day Lifestyle [...] Total Score: 5 11/25/19 24 9:48 AM MATERIAL CONTROL MANAGER documented as of this encounter Care Teams Excellence Coach Relationship Specialty Start Date End Date Manuel Hoffman M.D., Ph.D. PCP - General 07/31/17 03/03/24 Roger Sorensen Therapist 02/14/20 documented as of this encounter
--- OUTSIDE RECORDS SUMMARY | 2024-05-25 00:17 | XMS_ITS | Encounter Summary ---
Author Organization [facility] Address [address] [place] [address] Care Team Providers Care Sewing Demonstrator Name Role Phone Kayla Rowland APRN, C.N.P. Primary Care Provide r Reason for Visit * Reason Comments Med Refill Olanzapine,amlodipin e Encounter Details Date Type Department Care Team (Late st Contact Info) Description 02/06/2024 Refill Department of Oncology in [place], [place] [address] [place] [phone] Patsy Bowser APRN, C.N.P., M.S. [address] [place] [phone] Med Refill (Olanzapine,amlodipine) Social History Tobacco Use Types Packs/Day Years [...] often do you attend chur ch or pentecostal services? Never 12/06/2021 Do you belong to [...] Answer Date Recorded PHQ-2 Score 1 11/25/2023 [facility] Occupat ional Health - Occupational Stress [...] place to sleep or slept in a residential (including now)? No 12/06/2021 Depression Answer Date [...] Master's degree (e.g., MA, MS, Aba, MEd, MOTOR[employer]ED [employer], GAMALIEL) 08/15/2019 Sex and Gender Information Value Date Recorded Sex Assigned at Male 09/09/2023 12:48 PM IT OPERATIONS SPECIALIST Gender Identity Male 08/15/2019 2:16 PM CDT Sexual Orientation Straight 08/15/2019 2: 16 PM CDT documented as of this encounter Plan of Treatment Upcoming Encounters Date Type Department Care Team (Late st Contact Info) Description 06/01/2024 9:30 AM CDT Clinical Support Division of Colon and Rectal Surgery in [place], [place] 200 [place] [address] Armida Bullock APRN, C.N.P., M.S.N. 200 [place] [phone] 06/07/2024 9:20 AM CDT Lab Department of Infusion Therapy in [place], [place] [address] [place] [phone] Mariluz Soler M.D. [address] [place] [phone] 06/07/2024 11:20 AM CDT Office Visit Department of Oncology in [place], [place] [address] [place] [phone] Mariluz Soler M.D. [address] [place] [phone] 06/07/2024 1:00 PM CDT Infusion Department of Oncology in [place], [place] [address] [place] [phone] Mariluz Soler M.D. [address] [place] [phone] 06/17/2024 8:30 AM CDT Appointment Department of Laboratory Medicine and Pathology, [facility], in [place], [place] [address] [place] [phone] Anny Mcneill M.D. [address] [place] [phone] 06/17/2024 9:00 AM CDT Lab Department of Infusion Therapy in [place], [place] [address] [place] [phone] Anny Mcneill M.D. [address] [place] [phone] 06/17/2024 10:45 AM CDT Procedure visit Department of Urology in [place], [place] [address] [place] [phone] Anny Mcneill M.D. [address] [place] [phone] 06/17/2024 1:45 PM CDT Comprehensive Visit Department of Urology in [place], [place] [address] [place] [address] Ayesha Romero P.A.-C. [address] [place] [phone] 06/17/2024 4:15 PM CDT Comprehensive Visit Department of Urology in [place], [place] [address] [place] [phone] Scotty Tom APRN, CSolitarioNSolitarioP. [address] [place] [phone] documented as of this encounter Goals Goal Patient Goal Type Associated Problems Recent Progress Patient-Stated? Author Eat a balanced, healthy diet Diet Worsening( 11:49 AM CDT) Yes Thermal, Nadia Boone R.N. Note: 02/14/20 - Has one regular meal daily (supper), otherwise not as hungry and snacks on fruit in AM, chips in evening. Will readdress his dietary goals and see if this makes a difference in his mood. Read Managing My Depression General Improving( 11:43 AM CDT) Yes Thermal, Nadia Boone R.N. Note: P. 46-48 Create a relapse prevention plan. Spend time with my dog again. General On track( 11:43 AM CDT) Yes Thermal, Michael McgheeN. Have some time to himself regularly. General On track( 11:47 AM CDT) Yes Thermal, Tammy Mcghee.Curtis. Note: 01/24/20 - More structure to his day. 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 Recognizing he needs more personal time. Meet with therapist regularly General On track( 11:43 AM CDT) Yes Krishan, Nadia Boone R.N. Note: Dr. Pavan Sorensen, with [facility] in [place], [place]. Take your medication every day Lifestyle [...] Total Score: 5 11/25/19 24 9:48 AM IT OPERATIONS SPECIALIST documented as of this encounter Care Teams Sewing Demonstrator Relationship Specialty Start Date End Date Kayla Rowland APRN, C.N.P. [address] [place] [phone] PCP - General 03/04/24 Roger Sorensen Therapist 02/14/20 documented as of this encounter
--- OUTSIDE RECORDS SUMMARY | 2024-05-25 00:17 | XMS_ITS | Encounter Summary ---
Author Organization [facility] Address [address] [place] [address] Care Team Providers Care Chemical Treatment Plant Technician Name Role Phone Kayla Rowland APRN, C.N.P. 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 [address] [place] [phone] [facility] Referral ID Status Reason Start Date Expiration Date Visits Re quested Visits Authorized [id number] Closed 02/04/2024 08/05/2025 1 1 Scheduling Instructions Please schedule labs/imaging prior to Med Onc and Dr. Viera. Labs PRIOR to 8:30am if same day as surgeon. Thank you. 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 [address] [place] [phone] [facility] Referral ID Status Reason Start Date Expiration Date Visits Re quested Visits Authorized [id number] Closed 02/04/2024 08/05/2025 1 1 Scheduling Instructions Please schedule with Dr. Quintanilla. Drs. Viera & Dwight have already discussed pt's case. OR 03/29. Reason for Visit * Reason Onset Date Comments Surgical Planning 02/04/2024 Encounter Details Date Type Department Care Team (Latest Contact Info) Description 02/04/2024 Clinical Communication Division of Hepatobiliary and Pancreas Surgery in [place], [place] [address] [place] [phone] Chris Viera D.O., M.B.ASolitario 200 [place] [phone] Surgical Planning Social History Tobacco Use Types Packs/Day Years [...] How often do you attend chur or sabianism services? Never 12/06/2021 Do you belong to [...] 11/25/2023 [facility] of Occupat ional Health - Occupational [...] place to sleep or slept in a senior care (including now)? No 12/06/2021 Depression Answer Date [...] Master's degree (e.g., MA, MS, Aba, MEd, [employer] PL[employer]NER, GAMALIEL) 08/15/2019 Sex and Gender Information Value Date Recorded Sex Assigned at Male 09/09/2023 12:48 PM SENIOR TECHNICAL BUSINESS ANALYST Gender Identity Male 08/15/2019 2:16 PM CDT Sexual Orientation Straight 08/15/2019 2: 16 PM CDT documented as of this encounter Plan of Treatment Upcoming Encounters Date Type Department Care Team (Late st Contact Info) Description 06/01/2024 9:30 AM CDT Clinical Support Division of Colon and Rectal Surgery in [address] [phone] Armida Bullock APRN, C.N.P., M.S.N. [address] [place] [phone] 06/07/2024 9:20 AM CDT Lab Department of Infusion Therapy in [address] [phone] Mariluz Soler M.D. [address] [place] [phone] 06/07/2024 11:20 AM CDT Office Visit Department of Oncology in [address] [phone] Mariluz Soler M.D. [address] [place] [phone] 06/07/2024 1:00 PM CDT Infusion Department of Oncology in [place], [place] [address] [place] [phone] Mariluz Soler M.D. [address] [place] [phone] 06/17/2024 8:30 AM CDT Appointment Department of Laboratory Medicine and Pathology, [facility], in [place], [place] [address] [place] [phone] Anny Mcneill M.D. [address] [place] [phone] 06/17/2024 9:00 AM CDT Lab Department of Infusion Therapy in [place], [place] [address] [place] [phone] Anny Mcneill M.D. [address] [place] [phone] 06/17/2024 10:45 AM CDT Procedure visit Department of Urology in [place], [place] [address] [place] [phone] Anny Mcneill M.D. [address] [place] [phone] 06/17/2024 1:45 PM CDT Comprehensive Visit Department of Urology in [place], [place] [address] [place] [phone] Ayesha Romero, PSolitarioASolitario-CSolitario [address] [place] [phone] 06/17/2024 4:15 PM CDT Comprehensive Visit Department of Urology in [place], [place] [address] [place] [phone] Scotty Tom APRN, C.N.P. 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 Recognizing he needs more personal time. Meet with therapist regularly General On track( 11:43 AM CDT) Yes Turton, Nadia Boone R.N. Note: Dr. Pavan Sorensen, with [facility] in [place], [place]. Take your medication every day Lifestyle [...] documented as of this encounter Results * CEA (Carcinoembryonic Antigen) (03/21/2024 8:57 AM CDT) Pathologist [facility] Carcinoembryonic Ag (CEA), S 1.3 ng/mL 03/21/2024 4:32 PM CDT [facility] Comment: ----REFERENCE VALUE---- <=3.0 (Non-smokers) Some smokers may have elevated CEA, usually <5.0. ----ADDITIONAL INFORMATION---- The testing method is an immunoenzymatic assay manufactured by [employer]. and performed on the Point[employer] 800. ? Values obtained with different assay methods or kits may be different and cannot be used interchangeably. ? Test results cannot be interpreted as absolute evidence for the presence or absence of malignant disease. Blood (Blood, Venous) 03/21/2024 8:57 AM CDT 03/21/2024 2:56 PM CDT Diego Umana D.O.B.ASolitario LAB BLOO D ADD-ON [facility] [address] [place] [address] [facility] [address] [place] [address] * Bilirubin, Direct (03/21/2024 8:57 AM CDT) Pathologist [facility] Bilirubin, Direct, S <0.2 0.0 - 0.3 mg/dL 03/21/2024 9:58 AM CDT DTL Blood (Blood, Venous) 03/21/2024 8:57 AM CDT 03/21/2024 9:26 AM CDT Chris Viera D.O., M.B.A. LAB BLOO D ADD-ON Performing Organization Address City/[facility] Co de Phone Number [facility] [address] [place] [address], [facility] [address] [place] [address] * Prothrombin Time (PT) (03/21/2024 8:57 AM [...] LAB BLOO D ADD-ON Performing Organization Address City/[facility] Co de Phone Number [facility] [address] [place] [address], [facility] [address] [place] [address] * Comprehensive Metabolic Panel (03/21/2024 8:57 AM [...] 8:57 AM CDT 03/21/2024 9:26 AM CDT Diego Umana D.O.B.A. LAB BLOO D ADD-ON [facility] [address] [place] [address], [facility] 200 [place] [address] * CBC with Differential, Blood (03/21/2024 8:57 [...] CDT 03/21/2024 9:08 AM CDT Diego Umana D.O.BVirgil. LAB BLOO D ADD-ON [facility] [address] [place] [address], [facility] DTL [facility] [address] [place] [address] [facility] [address] [place] [address] * CT Abdomen Pelvis with IV Contrast [...] is no longer identifiable. Locoregionallymphadenopathy has improved. Chris Viera D.O., M.BSolitarioA. IMG CT P ROCEDURES * CT Chest [...] of theabdomen, which will be reported separately. Chris Viera D.O., M.B.A. IMG CT P ROCEDURES documented in this [...] Total Score: 5 11/25/19 24 9:48 AM SENIOR TECHNICAL BUSINESS ANALYST documented as of this encounter Care Teams Chemical Treatment Plant Technician Relationship Specialty Start Date End Date Kayla Rowland APRN, C.N.P. [address] [place] [phone] PCP - General 03/04/24 Roger Sorensen Therapist 02/14/20 documented as of this encounter
[2024-05-25 00:20] VITALS: O2SAT 94
[2024-05-25] MEDS: 0.9 % SODIUM CHLORIDE 1000 ml 1,000 ML IV (00:24)
[2024-05-25 00:27] LABS: Basophils Absolute Auto 0.03 K/uL (0.00-0.30); Basophils Percent Auto 0.5 % (0.0-3.0); Eosinophils Absolute Auto 0.07 K/uL (0.00-0.50); Eosinophils Percent Auto 1.1 % (0.0-7.0); Hematocrit 37.6 % (37.0-53.0); Hemoglobin* 12.2 gm/dL (13.5-17.5); Immature Granulocytes Abs Auto 0.03 K/uL (0.00-0.30); Immature Granulocytes Pct Auto 0.5 %; Mean Corpuscular HGB Conc 32 gm/dL (32-36); Mean Corpuscular Hemoglobin 28 pg (26-34); Mean Corpuscular Volume 88 fL (80-100); Monocytes Percent Auto 11.4 % (0.0-11.0); Neutrophils Percent Auto 73.5 % (42.0-72.0); Platelet Count* 284 K/uL (140-440); RDW Coefficient of Variation % 13.2 % (11.5-15.5); Red Blood Count 4.29 m/uL (4.30-5.90)
[2024-05-25 00:30] LABS: Slide Review Reflex No
[2024-05-25 00:41] LABS: Chloride* 105 mmol/L (96-114)
[2024-05-25 00:42] LABS: Potassium* 3.9 mmol/L (3.6-5.1); Sodium* 137 mmol/L (135-149)
[2024-05-25 00:44] LABS: Creatinine* 0.8 mg/dL (0.5-1.5); Est. Creatinine Clearance* 113.61; Estimated Glomerular Filt Rate 114 ml/min
[2024-05-25 00:45] LABS: Alanine Aminotransferase* 60 U/L (4-50); Alkaline Phosphatase* 169 U/L (40-150); Anion Gap 7 mEq/L (7-15); Aspartate Amino Transferase* 28 U/L (12-35); Bilirubin Direct* 0.4 mg/dL (0.0-0.5); Bilirubin Total* 0.5 mg/dL (0.1-1.5); Blood Urea Nitrogen* 22 mg/dL (5-24); Calcium* 9.1 mg/dL (8.4-10.6); Carbon Dioxide* 25 mmol/L (20-32); Glucose* 104 mg/dL (60-115); Total Protein* 6.7 g/dL (6.0-8.3)
[2024-05-25 00:48] LABS: C Reactive Protein* 7.2 mg/dL (0.5-1.0)
[2024-05-25 01:00] LABS: PCR FLU A Negative PCR FLU A (Negative); PCR FLU B Negative PCR FLU B (Negative); SARS PCR* Negative SARS-CoV-2 (Negative)
[2024-05-25 01:01] LABS: Procalcitonin* 0.18 ng/mL (<0.50)
[2024-05-25 01:25] LABS: Appearance Urine Clear (Clear); Bilirubin Urine Negative (Negative); Blood Urine Negative (Negative); Color Urine Yellow (Yellow); Glucose Urine Negative (Negative); Ketones Urine Negative (Negative); Leukocyte Esterase Urine Negative (Negative); Nitrite Urine Negative (Negative); Protein Urine Negative (Negative); Urobilinogen Urine 0.2 (0.2-1.0); pH Urine 5.5 (5.0-8.5)
[2024-05-25 01:32] LABS: RBC Urine 0-2 (0-2); Squamous Epithelial Cell Urine Few (None-Few); WBC Urine 0-2 (0-5)
[2024-05-25] MEDS: HEPARIN 500 UNIT/5 ML SYRINGE IVF (01:34)
== END 2024-05-25 01:35 | disposition home or self-care (01) ==
PROVIDERS: Emergency Provider Family Medicine
DX: R50.9 Fever, unspecified (principal)
CPT/HCPCS: 36415; 80048; 80076; 81001; 83605; 84145; 85025; 86140; 87040; 87631; 99283; 99284; J1642; J7030